=== PATIENT | female | born 2000 | race Caucasian/White ===

== ENCOUNTER 2022-08-28 16:55 | Emergency (ER) | payer OTHER, SELFPAY ==
[2022-08-28 17:11] VITALS: BP 102/72; PULSE 89; RESP 18; TEMP 36.9; O2SAT 99; BMI 44.7
[2022-08-28 17:52] LABS: Internal Control Within Normal Limits; Strep A Antigen Screen Negative
--- NOTE | 2022-08-28 17:59 | ED.GENADUL1 ---
HPI - General Adult General Chief complaint: Dental/Oral Stated complaint: SORE THROAT Time Seen by Provider: 08/28/22 17:02 Source: patient Mode of arrival: walk-in Limitations: no limitations History of Present Illness HPI narrative: two days ago she developed sore throat and noticed white spots. Painful to eat and drink. No neck pain or swollen lymph nodes. No ear pain, nasal congestion or cough. Uncertain about potential exposures. Related Data Home Medications Medication Instructions Recorded Confirmed metformin 500 mg tablet,extended 500 mg PO DAILY 08/28/22 08/28/22 release 24 hr sertraline 100 mg tablet 100 mg PO Q24H 08/28/22 08/28/22 Previous Rx's Medication Instructions Recorded amoxicillin 500 mg capsule 500 mg PO TID #20 caps 08/28/22 Allergies Allergy/AdvReac Type Severity Reaction Status Date / Time theophylline Allergy Rash Verified 08/28/22 17:16 [facility] Medical History (Updated 08/28/22 @ 17:59 by Cody Swain) Social History Smoking status: Never smoker Exam Narrative Exam Narrative: Nurses notes and vital signs reviewed and patient is not hypoxic. afebrile General: Well-appearing and in no apparent distress. Skin: Warm, dry, no pallor noted. No rash. Head: Normocephalic, atraumatic. Neck: Supple, non-tender. no cervical lymphadenopathy Eye: Pupils are equal, round and EOMI. No scleral icterus. Ears, Nose, Mouth, and Throat: TM are clear, no nasal mucosal hypertrophy. Oral mucosa is moist, moderate posterior oropharynx erythema and swelling with exudate, uvula is mid-line Cardiovascular: Regular Rate and Rhythm without murmur, gallop or rub. Respiratory: No accessory muscle use or respiratory distress. Lungs are clear to auscultation, no wheezing, rales or rhonchi Musculoskeletal: normal ROM Neurological: A&O x4. No cranial nerve dysfunction observed. No truncal ataxia. Moves all extremities. Sensation intact. Psychiatric: Cooperative and interactive. Normal mood and affect. Constitutional Vital Signs - 24 hr 08/28/22 17:11 08/28/22 17:39 Temperature 98.4 F Pulse Rate [Monitor] 89 Respiratory Rate 18 Blood Pressure [Left Arm] 102/72 Pulse Oximetry 99 Oxygen Delivery Method Room Air Room Air Course Vital Signs Vital signs: Vital Signs Temperature 98.4 F 08/28/22 17:11 Pulse Rate 89 08/28/22 17:11 Respiratory Rate 18 08/28/22 17:11 Blood Pressure 102/72 08/28/22 17:11 Pulse Oximetry 99 08/28/22 17:11 Oxygen Delivery Method Room Air 08/28/22 17:11 Temperature 98.4 F 08/28/22 17:11 Pulse Rate 89 08/28/22 17:11 Respiratory Rate 18 08/28/22 17:11 Blood Pressure 102/72 08/28/22 17:11 Pulse Oximetry 99 08/28/22 17:11 Oxygen Delivery Method Room Air 08/28/22 17:39 Medical Decision Making MDM Narrative Medical decision making narrative: patient presents with two days of sore throat and white exudate on her tonsils. Strep test is negative. I will prescribe antibiotics to treat her tonsillitis. She can take [id number] medications such as Tylenol and Motrin for the pain as well as gargling with salt water. 1st dose of antibiotic was given in the emergency Department before discharge. Lab Data Lab results reviewed: Yes I reviewed the patient's lab results Labs: Lab Results 08/28/22 Range/Units 17:20 Streptococcus Screen Negative Discharge Plan Discharge Chief Complaint: Dental/Oral Clinical Impression: Pharyngitis Patient Disposition: Home, Self-Care Time of Disposition Decision: 17:56 Prescriptions / Home Meds: New amoxicillin 500 mg capsule 500 mg PO TID Qty: 20 0RF No Action metformin 500 mg tablet extended release 24 hr 500 mg PO DAILY sertraline 100 mg tablet 100 mg PO Q24H Rx Instructions: at HS Instructions: Pharyngitis (ED) Stand Alone Forms: Portal Instructions Referrals: Physician,Non-Staff, MD [Primary Care Provider] - 1 week
[2022-08-28] MEDS: AMOXICILLIN 500 MG CAPSULE PO (18:04)
== END 2022-08-28 18:07 | disposition home or self-care (01) ==
PROVIDERS: Emergency Provider Emergency Medicine
DX: J02.9 Acute pharyngitis, unspecified (principal); Z79.84 Long term (current) use of oral hypoglycemic drugs; Z79.899 Other long term (current) drug therapy
CPT/HCPCS: 87070; 87880; 99283

== ENCOUNTER 2024-02-11 06:01 | Emergency (ER) | payer OTHER, SELFPAY ==
[2024-02-11 06:06] VITALS: BP 130/86; PULSE 92; TEMP 37; O2SAT 99; BMI 38.3
[2024-02-11 06:18] LABS: Bilirubin Urine NEGATIVE (NEGATIVE); Blood Urine NEGATIVE (NEGATIVE); Clarity Urine CLEAR (CLEAR); Color Urine YELLOW (YELLOW); Glucose Urine UA NEGATIVE (NEGATIVE); Ketones Urine NEGATIVE (NEGATIVE); Leukocyte Esterase Urine LARGE (NEGATIVE); Nitrite Urine NEGATIVE (NEGATIVE); Protein Urine TRACE mg/dL (NEG/TRACE); Urobilinogen Urine 0.2 EU/dL (0.2-1.0); pH Urine 6.5 (5.0-9.0)
[2024-02-11 06:20] LABS: HCG Qualitative Urine* POSITIVE (NEGATIVE); Internal Control Within Normal Limits
[2024-02-11 06:24] LABS: Urine Microscopic Indicated YES
[2024-02-11 06:27] LABS: Bacteria Urine LARGE #/HPF (NONE SEEN); Cast Seen? NONE SEEN #/LPF (NONE SEEN); Crystals Seen? None Seen #/HPF (None Seen); Mucus Urine NONE SEEN (NONE SEEN); RBC Urine 0-2 #/HPF (0-2); Squamous Epithelial Cell Urine MANY #/LPF (NONE/RARE); WBC Urine 20-50 #/HPF (NONE SEEN)
[2024-02-11 06:28] LABS: Urine Culture Indicated YES
--- NOTE | 2024-02-11 06:34 | ED.GENADUL1 ---
HPI HPI - General Adult General Chief complaint: Recheck/Abnormal Lab/Rx Stated complaint: preg test Time Seen by Provider: 02/11/24 06:06 Source: patient Mode of arrival: walk-in Limitations: no limitations History of Present Illness HPI narrative: The patient presented to us because she wanted know if she is or not she is denying any other acute complaint Related Data Home Medications ?Medication ?Instructions ?Recorded ?Confirmed metformin 500 mg tablet,extended 500 mg PO DAILY 08/28/22 02/11/24 release 24 hr sertraline 100 mg tablet 100 mg PO Q24H 08/28/22 02/11/24 Previous Rx's ?Medication ?Instructions ?Recorded amoxicillin 875 mg-potassium 1 tab PO Q12H #10 tabs 02/11/24 clavulanate 125 mg tablet Allergies Allergy/AdvReac Type Severity Reaction Status Date / Time theophylline Allergy Rash Verified 02/11/24 06:06 Opioid HPI Opioid Management Most Recent Opioid Data: No Data to Display Review of Systems ROS Status of ROS 10 or more systems reviewed and unremarkable except as noted in history and below [facility] Medical History (Updated 02/11/24 @ 06:33 by Christina Lombardo MD) PCOS (polycystic ovarian syndrome) ?E28.2 - Polycystic ovarian syndrome (ICD-10) Depression ?F32.A - Depression, unspecified (ICD-10) Social History Smoking status: Never smoker Little interest or pleasure in doing things: not at all Feeling down, depressed, or hopeless: not at all Exam Narrative Exam Narrative: Nurses notes and vital signs reviewed and patient is not hypoxic. General: Well-appearing and in no apparent distress. Skin: Warm, dry, no pallor noted. No rash. Head: Normocephalic, atraumatic. Neck: Supple, non-tender. Eye: Pupils are equal, round and EOMI. No scleral icterus. Ears, Nose, Mouth, and Throat: TM are clear, no nasal mucosal hypertrophy. Oral mucosa is moist, no posterior oropharynx erythema, uvula is mid-line Cardiovascular: Regular Rate and Rhythm without murmur, gallop or rub. Respiratory: No accessory muscle use or respiratory distress. Lungs are clear to auscultation, no wheezing, rales or rhonchi Chest Wall: no tenderness Back: No midline thoracic or lumbar vertebral tenderness. No CVA tenderness Musculoskeletal: normal ROM, no calf or popliteal tenderness, no lower extremity edema/swelling GI: Abdomen is soft, non-distended. Normal bowel sounds. No masses appreciated. No tenderness to palpation. No rebound, guarding, or rigidity noted. Neurological: A&O x4. No cranial nerve dysfunction observed. No truncal ataxia. Moves all extremities. Sensation intact. Psychiatric: Cooperative and interactive. Normal mood and affect. Constitutional Vital Signs, click to edit/add: Last Vital Signs Temp 98.6 F 02/11/24 06:06 Pulse 92 H 02/11/24 06:06 Resp 20 02/11/24 06:06 BP 130/86 02/11/24 06:06 Pulse Ox 99 02/11/24 06:06 O2 Del Method Room Air 02/11/24 06:06 Course Vital Signs Vital signs: Vital Signs Temperature 98.6 F 02/11/24 06:06 Pulse Rate 92 H 02/11/24 06:06 Respiratory Rate 20 02/11/24 06:06 Blood Pressure 130/86 02/11/24 06:06 Pulse Oximetry 99 02/11/24 06:06 Oxygen Delivery Method Room Air 02/11/24 06:06 Temperature 98.6 F 02/11/24 06:06 Pulse Rate 92 H 02/11/24 06:06 Respiratory Rate 20 02/11/24 06:06 Blood Pressure 130/86 02/11/24 06:06 Pulse Oximetry 99 02/11/24 06:06 Oxygen Delivery Method Room Air 02/11/24 06:06 Medical Decision Making MDM Narrative Medical decision making narrative: The patient test is positive and she does have bacteriuria as well in her urine she will be treated with Augmentin The patient otherwise will just follow-up with her OB doctor The patient is to follow up with primary care physician in next 2-3 days or to return to the emergency department should any of the signs or symptoms worsen or new symptoms develop. The patient agrees with the following Diagnosis and Treatment plan and the patient will be discharged home. Lab Data Labs: Lab Results 02/11/24 Range/Units 06:15 Urine Color Yellow (YELLOW) Urine Clarity Clear (CLEAR) Urine pH 6.5 (5.0-9.0) Ur Specific [place] 1.020 (1.005-1.025) Urine Protein Trace (NEG/TRACE) mg/dL Urine Glucose (UA) Negative (NEGATIVE) mg/dL Urine Ketones Negative (NEGATIVE) mg/dL Urine Occult Blood Negative (NEGATIVE) Urine Nitrite Negative (NEGATIVE) Urine Bilirubin Negative (NEGATIVE) Urine Urobilinogen 0.2 (0.2-1.0) EU/dL Ur Leukocyte Esterase Large A (NEGATIVE) Urine RBC 0-2 (0-2) #/HPF Urine WBC 20-50 A (NONE SEEN) #/HPF Ur Squamous Epith Cells Many A (NONE/RARE) #/LPF Urine Crystals None seen (None Seen) #/HPF Urine Bacteria Large A (NONE SEEN) #/HPF Urine Casts None seen (NONE SEEN) #/LPF Urine Mucus None seen (NONE SEEN) Ur Culture Indicated? Yes Urine HCG, Qual Positive A (NEGATIVE) Discharge Plan Discharge Chief Complaint: Recheck/Abnormal Lab/Rx Clinical Impression: , Asymptomatic bacteriuria during Patient Disposition: Home, Self-Care Time of Disposition Decision: 06:33 Condition: Good Prescriptions / Home Meds: New amoxicillin-pot clavulanate 875-125 mg tablet 1 tab PO Q12H Qty: 10 0RF No Action metformin 500 mg tablet extended release 24 hr 500 mg PO DAILY sertraline 100 mg tablet 100 mg PO Q24H Rx Instructions: at HS Print Language: Kenyan Instructions: (ED) Referrals: Dhruv Recinos DO [Physician] - 1 week Physician,Non-Staff, [Primary Care Provider] - 1 week
== END 2024-02-11 06:40 | disposition home or self-care (01) ==
PROVIDERS: Emergency Provider Emergency Medicine
DX: O99.891 Other specified diseases and conditions complicating pregnancy (principal); R82.71 Bacteriuria; Z3A.00 Weeks of gestation of pregnancy not specified
CPT/HCPCS: 81001; 84703; 87086; 99283

== ENCOUNTER 2024-02-23 14:53 | Emergency (ER) | payer OTHER, SELFPAY ==
[2024-02-23 14:59] VITALS: BP 118/72; PULSE 79; TEMP 36.8; O2SAT 99; BMI 42.3
--- OUTSIDE RECORDS SUMMARY | 2024-02-23 15:08 | XMS_ITS | CCD ---
Author Organization [facility] Care Team Providers Care Composing Machine Operator Name Role Phone Edith Ford Primary Care Provider Edith Ford Primary Care Physician Maggie Alex Unavailable Unavailable Neal Garcia Consulting Unavailable Logan PROVIDER, Logan Quiroga Referring Unavailable Logan PROVIDER, Logan Quiroga Attending Unavailable Logan PROVIDER, Logan Quiroga Admitting Unavailable Neal Garcia Consulting Unavailable Neal Garcia Consulting Unavailable HARPAL, DR KATHLEEN Primary Care Unavailable FLORA, DR MCKENZIE Admitting Unavailable FLORA, DR MCKENZIE Attending Unavailable PAY ., DR ARAUZ Consulting Unavailable FLORA, DR MCKENZIE Consulting Unavailable MISC, DR KATHLEEN Primary Care Unavailable EILEEN ., JOURDAN Admitting Unavailable EILEEN ., JOURDAN Attending Unavailable JOHNNY WOODARD Consulting Unavailable LOGAN, DR TEJADA Consulting Unavailable HARPAL, DR KATHLEEN Primary Care Unavailable EILEEN ., JOURDAN Admitting Unavailable EILEEN ., JOURDAN Attending Unavailable EILEEN ., JOURDAN Consulting Unavailable HARPAL, DR KATHLEEN Primary Care Unavailable MAHAMED Ibanez, DR MALLORY Consulting Unavailable MAHAMED ., DR MALLORY Admitting Unavailable MAHAMED ., DR MALLORY Attending Unavailable LOGAN, DR TEJADA Consulting Unavailable HARPAL, DR KATHLEEN Primary Care Unavailable MAHAMED Ibanez, DR MALLORY Admitting Unavailable MAHAMED Ibanez, DR MALLORY Attending Unavailable MAHAMED Ibanez, DR MALLORY Consulting Unavailable HARPAL, DR KATHLEEN Primary Care Unavailable KHARI, DR JESUS Cortez Admitting Unavailable KHARI, DR JESUS Cortez Attending Unavailable KHARI, DR JESUS Cortez Consulting Unavailable LOGAN, DR TEJADA Consulting Unavailable HARPAL, DR KATHLEEN Primary Care Unavailable KHARI, DR JESUS Cortez Admitting Unavailable KHARI, DR JESUS Cortez Attending Unavailable KHARI, DR JESUS Cortez Consulting Unavailable HUY QUIÑONES Consulting Unavailable LUIS DONATO Consulting Unavailable WALKER BLUM Attending Unavailable WALKER BLUM Referring Unavailable Allergies Allergy Classification Reported Allergen(s) Allergy Type Date of Onset Reaction(s) Facility Theophylline (1 source) Theophylline Drug Allergy 1 [facility] (2 sources) SUMAtriptan; Translations: [sumatriptan] Drug Allergy Pharyngeal swelling (finding) [facility] (2 sources) Theophylline; Translations: [theophylline] Drug Allergy rash [facility] (1 source) Theophylline Drug Allergy 9 [facility] Repository Medications Current Medications Medication Drug Class(es) Dates Sig (Normalized) Sig (Original) cyclobenzaprine hydrochloride 10 mg oral tablet (1 source) Muscle Relaxant Start: 06-29-2020 take 10 mg by mouth three times daily Cyclobenzaprine Active 10 MG PO Three times daily June 29, 2020 9:12am diclofenac sodium 75 mg delayed release oral tablet (1 source) Nonsteroidal Anti-inflammatory Drug Start: 06-29-2020 take 75 mg by mouth twice daily Diclofenac Sodium Active 75 MG PO Twice daily June 29, 2020 9:12am lidocaine 0.05 mg/mg medicated patch (1 source) Antiarrhythmic, Amide Local Anesthetic Start: 06-29-2020 apply 1 dose topically once daily Lidocaine Active 1 PATCH TOPICAL Daily June 29, 2020 9:12am leave on most painful area for up to 12 hrs naproxen 500 mg oral tablet (1 source) Nonsteroidal Anti-inflammatory Drug Start: 12-13-2018 take 1 tablet by mouth twice daily at mealtime Naprosyn 500 mg Tab 500 mg = 1 tab(s), Oral, BID, with food, # 60 tab(s), Refills(s) 0 Start Date: 12/13/18 Status: Ordered Bactrim (1 source) Dihydrofolate Reductase Inhibitor Antibacterial, Sulfonamide Antimicrobial Start: 12-13-2018 take 80 mg by mouth every twelve hours Bactrim See Instructions, Refill(s) 0, 80 mg Oral q12hr Start Date: 12/13/18 Status: Ordered Problems Active Problems Problem Classification Problem Date Documented Date Episodic/Chronic E Codes: Natural/environment (1 source) Other and unspecified overexertion or strenuous movements or postures, initial encounter; Translations: [OTH AND UNS OVREXRT/STRN MVMT/POS INT] Onset: 03-15-2022 Episodic Esophageal disorders (1 source) Gastroesophageal reflux disease 12-22-2015 Chronic Headache; including migraine (4 sources) Headache; including migraine; Translations: [HEADACHE UNSPECIFIED] Onset: 11-29-2021 Mood disorders (1 source) Bipolar disorder 12-25-2018 Chronic Nonspecific chest pain (5 sources) Other chest pain; Translations: [Chest pain, unspecified] Onset: 01-20-2022 Episodic Other and ill-defined heart disease (1 source) Cardiomegaly; Translations: [CARDIOMEGALY] Onset: 01-24-2022 Chronic Other ear and sense organ disorders (3 sources) Otalgia, right ear; Translations: [OTALGIA RIGHT EAR] Onset: 05-08-2022 Episodic Other endocrine disorders (1 source) Polycystic ovarian syndrome; Translations: [POLYCYSTIC OVARIAN SYNDROME] Onset: 12-22-2021 Chronic Other female genital disorders (3 sources) Abnormal uterine and vaginal bleeding, unspecified; Translations: [ABNORMAL UTERINE VAGINAL BLEED UNS] Onset: 12-21-2021 Chronic Other female genital disorders (1 source) Other specified abnormal uterine and vaginal bleeding; Translations: [OTH SPEC ABNORMAL UTERINE VAG BLEED] Onset: 12-22-2021 Chronic Other nutritional; endocrine; and metabolic disorders (1 source) Obesity, unspecified; Translations: [OBESITY UNSPECIFIED] Onset: 05-09-2022 Chronic Other nutritional; endocrine; and metabolic disorders (1 source) Body mass index (BMI) 40.0-44.9, adult; Translations: [BODY MASS INDEX BMI 40.0-44.9 ADULT] Onset: 05-09-2022 Chronic Other nutritional; endocrine; and metabolic disorders (1 source) Body mass index (BMI) 45.0-49.9, adult; Translations: [BODY MASS INDEX BMI 45.0-49.9 ADULT] Onset: 03-15-2022 Chronic Other upper respiratory disease (1 source) Nasal congestion; Translations: [NASAL CONGESTION] Onset: 02-25-2022 Episodic Other upper respiratory infections (1 source) Acute upper respiratory infection, unspecified; Translations: [ACUTE UP RESPIRATORY INFECTION UNS] Onset: 02-25-2022 Episodic Otitis media and related conditions (1 source) Otitis media, unspecified, right ear; Translations: [OTITIS MEDIA UNSPECIFIED RIGHT EAR] Onset: 05-09-2022 Episodic Spondylosis; intervertebral disc disorders; other back problems (4 sources) Pain in thoracic spine; Translations: [Dorsalgia, unspecified] Onset: 03-13-2022 Episodic Sprains and strains (2 sources) Strain of thoracic region; Translations: [Strain of muscle and tendon of back wall of thorax, initial encounter] Onset: 03-15-2022 Episodic Unclassified (1 source) None (qualifier value) 04-08-2012 Unclassified (2 sources) COUGH, UNSPECIFIED; Translations: [COUGH, UNSPECIFIED] Onset: 02-25-2022 Unclassified (1 source) CONTACT W/AND (SUSP) EXPOS COVID-19; Translations: [CONTACT W/AND (SUSP) EXPOS COVID-19] Onset: 02-25-2022 Past or Other Problems Problem Classification Problem Date Documented Da te Episodic/Chronic Conditions associated with dizziness or vertigo (1 source) Dizziness and giddiness; Translations: [DIZZINESS AND GIDDINESS] Onset: 12-01-2021 Episodic Nausea and vomiting (5 sources) Nausea; Translations: [Nausea with vomiting, unspecified] Onset: 08-21-2021 Episodic Other aftercare (1 source) Other prison (current) drug therapy; Translations: [OTH [facility] CURRENT DRUG THERAPY] Onset: 01-24-2022 Episodic Other aftercare (1 source) computer terminal operator (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) use of oral hypoglycemic drugs; Translations: [MAINTENANCE TECHNICIAN 2ND SHIFT USE ORAL HYPOGLYCEMIC DX] Onset: 12-22-2021 Episodic Poisoning by nonmedicinal substances (1 source) Toxic effect of carbon monoxide from other source, accidental (unintentional), initial encounter; Translations: [TOXIC EFF CO OTH SOURC ACC INIT ENC] Onset: 12-01-2021 Episodic Unclassified (1 source) COUGH, UNSPECIFIED; Translations: [COUGH, UNSPECIFIED] Onset: 02-23-2022 Urinary tract infections (1 source) Urinary tract infection, site not specified; Translations: [UTI SITE NOT SPECIFIED] Onset: 08-23-2021 Episodic Results Test Name Value Interpretation Reference Range Facil ity Referrals Officeon 3 Referrals Office [id number]#1.00CD:127 Normal [facility] CULTURE URINEon 03-13-2022 CULTURE URINE Culture Observations: HEAVY GROWTH OF MIXED GENITAL TING. NO POTENTIAL PATHOGENS SEEN. Normal [facility] Comment on above: Performed By: #### C MP #### [facility] [address] [address] [address] Paz Burk ER URINE PROFILEon 3 Bilirubin Ql (U) Negative Normal NEGATIVE [facility] Comment on above: Performed By: #### P REGU UMICRO, ERUR #### [facility] [address] [address] [address] Paz Burk Clarity (U) CLEAR Normal CLEAR [facility] Comment on above: Performed By: #### P REGU UMICRO, ERUR #### [facility] [address] [address] [address] Paz Burk Color (U) LT. YELLOW Normal YELLOW [facility] Comment on above: Performed By: #### P REGU UMICRO, ERUR #### [facility] [address] [address] [address] Paz POST A micrscopic examination will be performed if indicated. Normal [facility] Comment on above: Performed By: #### P REGU UMICRO, ERUR #### [facility] [address] [address] [address] Paz Burk Glucose Ql (U) Negative Normal NEGATIVE [facility] Comment on above: Performed By: #### P REGU UMICRO, ERUR #### [facility] [address] [address] [address] Paz Burk Hemoglobin Ql (U) Negative Normal NEGATIVE [facility] Comment on above: Performed By: #### P REGU UMICRO, ERUR #### [facility] [address] [address] [address] Paz Burk Ketones Ql (U) Negative Normal NEGATIVE [facility] Comment on above: Performed By: #### P REGU UMICRO, ERUR #### [facility] [address] [place] [address] Dr. Paz Burk LEUKOCYTES MODERATE Abnormal NEGATIVE [facility] Comment on above: Performed By: #### PEGGY STYLES ERUR #### [facility] [address] [address] [address] Paz Burk Nitrite Ql (U) Negative Normal NEGATIVE [facility] Comment on above: Performed By: #### PEGGY STYLES, CHANDRAKANTR #### [facility] [address] [address] [address] Paz Burk pH (U) 6.0 [pH] Normal 5-9 [facility] Comment on above: Performed By: #### PEGGY STYLES ERUR #### [facility] [address] [place] [address] Dr. Paz Burk SPEC GRAVITY 1.025 Normal 1.005-<=1.025 [facility] Comment on above: Performed By: #### PEGGY STYLES ERUR #### [facility] [address] [place] [address] Dr. Paz Burk UA PROTEIN Negative Normal NEGATIVE/ TRACE [facility] Comment on above: Performed By: #### PEGGY STYLES ERUR #### [facility] [address] [place] [address] Dr. Paz Burk UR MICRO IND INDICATED Normal [facility] Comment on above: Performed By: #### PEGGY STYLES ERUR #### [facility] [address] [address] [address] Paz Burk Urobilinogen Qn (U) 0.2 {Ara'U}/dL Normal 0.2 - 1. 0 [facility] Comment on above: Performed By: #### PEGGY STYLES ERUR #### [facility] [address] [place] [address] Dr. Paz Burk URon 03-13-2022 , QUAL Negative Normal NEGATIVE [facility] Comment on above: Performed By: #### PEGGY STYLES, ERUR #### [facility] [address] [address] [address] Paz Burk URINE MICROSCOPIC ONLYon BACTERIA MODERATE Abnormal NONE SEEN [facility] Comment on above: Performed By: #### P VERONICA HERNANDEZICRO, ERUR #### [facility] [address] [address] [address] Paz Burk Bacteria identified Cx Nom (U) INDICATED Normal [facility] Comment on above: Performed By: #### P VERONICA HERNANDEZICRO, ERUR #### [facility] [address] [address] [address] Paz Burk CAST NONE SEEN Normal NONE SEEN [facility] Comment on above: Performed By: #### P BREANA HERNANDEZRO, ERUR #### [facility] [address] [place] [address] Dr. Paz Burk Crystals LM Nom (Urine sed) NONE SEEN Normal NONE SEEN [facility] Comment on above: Performed By: #### P VERONICA HERNANDEZICRO, ERUR #### [facility] [address] [address] [address] Paz Burk Epithelial cells LM Ql (Urine sed) MODERATE Abnormal NONE SEEN /RARE [facility] Comment on above: Performed By: #### P BREANA HERNANDEZRO, ERUR #### [facility] [address] [address] [address] Paz Burk MUCOUS TRACE Abnormal NONE SEEN [facility] Comment on above: Performed By: #### P BRAENA HERNANDEZRO, ERUR #### [facility] [address] [address] [address] Paz Burk RBC 0-2 Normal 0-2 [facility] Comment on above: Performed By: #### P BREANA HERNANDEZRO, ERUR #### [facility] [address] [address] [address] Paz Burk WBC 50-75 Abnormal NONE SEEN [facility] Comment on above: Performed By: #### P PEGGY HERNANDEZ, ERUR #### [facility] [address] [address] [address] Paz Burk Coding Summary.on 03-04-2022 Coding Summary. CD:[id number] Gh0bWw+PGhlYWQ+PE1FV PGtD05mnBCwpW1GL4oIN E9DLSTMDVGQPI9MDZ5ek GZ0SMjnA1DkqpTx AunhhPPkTR85IZj7ZQK9 aWxpMKnjcC5pmZZzF7b4 PeWuNY08tO87JAbaJHUw DlA2WrQoszbpwOYv F2jaTaBocIHrZww+PHRh YmxlIHdpZHRoPScxMDAl SlZrrVlxZP3bBs5aTOZn LWNvbGxhcHNlOiBj k5egQHLrFMslXA7nuMda F5NtyPB8OQSjb6u1Ut54 dHI+HPXuALC5wGsrPCfv p783YyEzk5upRZS5 hFJiSBspYSI7L10yy9B5 WSFvMLKjCCV8kHH8uZ9l aEpppeuvF1EsnNJmJqZ0 MRM9xNZxzO0vkYph ovlkjD8kTvd+P46LMC5X ZIZMKY9OTrx1A4DnTyzq dHI+CX91ZCMqOE71vRTn eTRtu9pspFt1RjAo JNUxKJZ5wKvmXFrcb7Ho HWCoS38ywDUkf6G7QINa pJulgMVeZoVxlXH4jW7b FOpezhlqv4qjorzh Vssoj4zxfu05gF78F39d OAemEBXtJJA8UENuYNLd iJbzni6msQ1aYg7+IDxj g6cfq7zyjYi7FiEf AFWoivXltRbbEQU5p9Zr Vw32Z1NugPwih9HeXgd2 zk27rNYue1G6rIH8DKco ZXPrwO0kIBouNbN0 BEUcVcRluD78uQWmLAzy Wk4flHqihRisNQ1eCTHh fdllMYHqwJ9vJRGtpJTp iZjoGM8jAQRmbkfe j118ChNqLMP8TTAxsALb Z2TdeC6uTkNbVNKmDFQr U3KbnYWnVMmmT180EJqv BjR2PFIdxkHbF1Wl NUQfrAdqZrB8k3L8Nd8R e3QddelnTZG1UHoiABOl TfD4ZzJgHeG9Y7WvQvg5 BMWtpUdrLJ8vV8Ns QLVwlnytpjelxNI3YECy CISbfZ46fNNhIWvjDm1d o5I2g859FNTrFKOwlK33 Kf2dqAupIOIrvOAQ cX9iicjmg1ysuralBlPn GNSgQRy6JDy5YXWbrLty SvYjQNB8CgA2KIT9sTZk lX2poDeoulltzZ0j Oyc+V81ynM2dYFN3GYM2 owkkYWIlcoPfXK76KZ95 Q2FlYgwiiZGoxLC+PGRp sqZkcPwnMN9iXgRj l2crd0IwTWpuK2OfTIXv YJjnUyr5TAGeLTV9cLB3 sD4cIDLnPBmvm8H5hYS8 G4SpxrVffn1hp5oh GGUdYKquE49kmWGnq5Z8 CPYzrAW6WLRdeRnxAsRh fB63Igf+JNKekCuum6Ic Elsmd7fxx2wywKl0 IjMwJSIgdmFsaWduPSJ0 r2AbHs10X66rOSfbXQBy KCKqVNFzSIQbzAumup6x eO7eJz1+PGNvbCB3 mLU0eS6dDKFcBnB2WBrv W771AtXitFVoEqfcb1xy a5grzBq5YcUnXCRyjuSk nXxwWYI7p7QeKp94 I83oHZotJRBdOAGhIAWl TPAuuEcbkz8ieQ6oMi1+ BN3gz1usvj36cM38iGP+ KCJwJNV2wYqjFNvu XBHcuJ5gWQvqIwU6VFJw HiLknF64wKYrOOblKd5w vPjmlBzmTR8lKHGfnxsc l639SaZzv4aqCTZb gPGgVLebZXH8E89vt5P3 GMAyQLTpEUD4hOZ7yP2v bGlnbjogbGVmdDsgdmVy rCbbYDekRAwcK065 IHRvcDsnPlBhdGllbnQg MuQcLPk7O3KkVfy2PHAu oNveBY2seAJkWUfhUj9j bNaibKmgEG5tZRIx iaggr478IcThg1rvNMYc gNVjFVwrADA8U36ug4O9 UTMxCAZyCKA9qXG3oW4i bGlnbjogbGVmdDsg keQxbLepNErxHIwpT765 IHRvcDsnPkJpcnRoIERh bIJ3OZ13KL79uSOof7R9 bVC3W9CzHMBbwtgy rkdduUT9SHWfEYJqwJ85 Gw0wzZohJj8kLBSjWZV8 PGNtxZRrZ6FmkF1fNuWc WKKpBRNdC5IbxSNu YQgjM913EEotNnL3CIZy dfTsQ8EaIVEgoOjkHwK5 b2V1Nc5AV9V1FH30MQ81 bRNgg6V6eKC0B1Qh WWCycvgfbfffsKT7KKUj SVMurG77Az9qdPfgFs6j BCYkIHV7SLPlzPSmF9Yi oM8oRuApZJArPBTj U7MrsDLiRBqmY366ZHuy MtF8EWNbfaAuH4SjHQSh nOweLsA9c3U9Yf6YCBn4 SJ58BK18yDNxv6A2 mER1V8BvKMWrsbxaxful yWI9URKaAQFifN82Ni2x wGbaNw2xGOHkGJS4WEIc uWCdB4JyrV6pCmDd IVCpIWWfE5XnxTLlAPez Z877XSfdUiF6GHChcuJi K0XtUTRplMfrDcU7r2B1 Ta8VTZSoPV69LPA5 fVP2DQ10QD12Y7LaHdbv dGFibGU+PHRhYmxlIHdp ZHRoPScxMDAlJyBzdHls LH3mNv3eAZQmHMTw zIieeQViQcDtf8cfUUTg CJkjZG0ptBhxX1YtlRE1 RIUug0n3Hf91D88uO7Wq dXA+CXJdlIU8tFT3 bA5eDwNxHrD3NZbaV295 QuLezXEaJsxxx9tpp6ny vZi4JtG2JQUjqaCbuSee TSI5v2DtQy67S17n IHdpZHRoPSIxNSUiIHZh lHgcfg0ffZ1nAm5+PGNv tLG7ySC4jP1gCoNpRjE2 KSrbB724BaAurHYm Vnvxb7wxr0oblKo1XiHq AXZxmkFozSfvSMS1x6Se Or39B1IxcGzvr0EvQvg7 pk28zREzj3T5jMG1 Q1HvGKDgoziobGEcyIit WB5gYCZewpolUREenN3k MIQwI1m2JoEcLdW2CXpy M7NtjvD6THXagKAm KCnrSFG0Y67qb2U4WVTe IKEjYUY1oEQ5wW4ntPef bjogbGVmdDsgdmVydGlj TPrvPYwqS339ETEc xBwwACBvhB6eKUAezVQt aWbeWJ4gMMHsbqylTeYC IN1kMMfDHz6EArHiYmxw dGQ+GIDwOZJ7vKza TDnlCVFqkZ8dYQEjK3i1 FsGiJyD3ERxgB8KmQNEj dppeNp73gR5xZyKaTqS0 ELofU9RxxaD7PJAc cYEtLGxpHWE3H00rk4N1 JAXlIQRzPCP4dSY1nJ5t bGlnbjogbGVmdDsgdmVy rLnkVMfzYQahJ679 VDXvuGqiCcC4KdR7IaT4 FHw1X9RmYab1GDWykYkr GE6pdMAxJRdzSd3zlBud vEiyHH3cTTLiwmgi RGXiwN5wUBQwwEYmdTmc JE5iEZKvmgzsi616FyMg MVA5GGIhdLUxE5NncC7q TmEkVQAhKIPdI7Um dSQrRWqiX727UFgtPoH6 MTOegkXkM3AjYWQxpKdv BtM9h8U3Gq0zXmPAMIZr czwvdGQ+PHRkIHN0 oJrgZUciHYVkbO2oPPAo X1b6KpJzGdB0YPusJ7Hv DRXzbeseTg24oT4eHzXu JyG7CKagH6WgabQ2 PAJlhHDbECmiYPA2U87w k4U1TJOzFDTePTG9hLW0 pT2eyGgkahtuvBXhpBit dmVydGljYWwtYWxp E207NLGxaKfwGnBxtIQo ZTwvdGQ+OBBxAPQ4rRyk SPfrVKSpqG0lAUJjN5o7 EbChEwN3OMgrU3On VNEgatevQa65yW9aOrSj CnJ4ZVtoR2DhofA4CHUx dDCjZSyxMGG1R05fq6S5 IYShCDBrBPA0fDQ1 xC6qxSfzgtpjbGEelPbm ufBnsPcuAHorDOtqS165 PQIdxHhwZc61xNFcfLmt jrX7I3IePoebeGJ+ ET22WFOuEE44yFHgyQVf w8ptxVp8CdAnGORpREL0 dUwfNVcmy3EuRLYqH99a mQVqi4V6WVGwpBwy qUSgGzLqrBW1jA7vFWuk tussm0jusseiReizf5ha wh70gO06R93gFGtjNPAi PSIzMCUiIHZhbGln cw1veB1oSf2+PGNvbCB3 lBG7iK3dErBiIcH6YBqb L191SlYfqTFvKzpci0dn q7bwlRm8NwXwZBJa akFfkSixFOH3g6OeOg91 U18kVZmlJTSdPVPgBRSn TJWpuTjzjt0ghM4nQm3+ RW7pk7megn34eE66 dHI+ERJeHII2zCbrGKpl ZQHeiX2bGGxkLeD8AHPc CpQsvS20rDMjMQodDu1k cFtyaWvlRR8oYSRo qvcsk768EaMco5dnQHUx pGKiLUhkDAQ7Q56xa9M1 MSDlSFVmAQZ6kMR6lA5a bGlnbjogbGVmdDsg ssPxvJcpRKgtAPgaR170 BGMdcAzyXyGfyQAoQ2li ghTNLT2oNjkliPC+PHRk GPX6mFxfWGtyUQSi cQ4gQBPlT4m6JhIvByK6 AGesU4OasgV4ATOceXKx HOZqyNGNyL8bchwjh5pp cjogIzAwMDAwMDt0 NMb2GFZmwVnqLoGxOWC7 YeY0VQL5pXOpbJ0fdDsa yjbaiQ8kZsn+RklOOjwv dGQ+XRZcCWV5oSso TSlhGSUbeJ5xNQNcS4f8 MaTfCoU4BQzqW0RnguO6 RLHwlVRlYOJlfSUJiS8p wrztp4gdsjmkSqTu WABjXKt6MBh4KFQteVly OfDbOHT0CkW7ZEJ8zOMy rQ2bkHvjehixdJ2uNro+ TVJOOjwvdGQ+PHRk CUS4fNegYDipWCAacN6n LFIlY8j6RbHyWxR3RCgk H1TscjU3JXXbnFPzSMCj cHJHzN3juuzoz5eo wkzdWmBbKUWuDOz0EHt5 GDTgxGlnSxSeJFD7HuN7 VHL8sCYhbU0ybPcuwmfo yW7nFrl+FWY4KUB7 DU36PW38W3FuGtrteRKu bGU+PHRhYmxlIHdpZHRo ILbyOUUsSyOrzCatEZ0x Kt0xEWEoPUEbyKtv cHNl (more content not included)... Normal [facility] Consent for Treatmenton Consent for Treatment [id number] #1.00CD:127 Normal [facility] Covid-19 PCR ([facility])on 01-28 SARS-CoV-2 (COVID-19) RNA IGNACIO+probe Ql (Unsp spec) Not detected Normal NOT DETECTED [facility] Comment on above: Result Comment: This test is not yet approved or cleared by the [place] FDA. When there are no FDA-approved or cleared tests available, and other criteria are met, FDA can make tests available under an emergency access mechanism called an Emergency Use Authorization (EUA). The EUA for this test is supported by the [place] of Health and Human Service's (HHS's) declaration that circumstances exist to justify the emergency use of in vitro diagnostics for the detection and/or diagnosis of the virus that causes COVID-19. This EUA will remain in effect (meaning this test can be used) for the duration of the COVID-19 declaration justifying emergency of IVDs, unless it is terminated or revoked by FDA (after which the test may no longer be used). When diagnostic testing is negative, the possibility of a false negative should be considered in the context of a patient's recent exposures and the presence of clinical signs and symptoms consistent with SARS-CoV-2. Performed By: #### [facility] #### [facility] [address] [place] [address] Dr. Paz Bukr INFLUENZA A AND B AGon 02-23 INFLUANEGH SEE BELOW Normal [facility] Comment on above: Result Comment: Nega tive for Flu A protein angiten. Infection due to Flu A cannot be ruled out. Flu A angiten in the sample may be below the detection limit of the test. Performed By: #### I NFLUAB #### [facility] [address] [place] [address] Dr. Paz Burk [facility] SEE BELOW Normal [facility] Comment on above: Result Comment: Nega tive for Flu B protein antigen. Infection due to Flu B cannot be ruled out. Flu B antigen in the sample may be below the detection limit of the test. Performed By: #### I NFLUAB #### [facility] [address] [place] [address] Dr. Paz Bukr INFLUENZA A AG Negative Normal NEGATIVE SEE COMMENT [facility] Comment on above: Performed By: #### I NFLUAB #### [facility] [address] [place] [address] Dr. Paz Burk INFLUENZA B AG Negative Normal NEGATIVE SEE COMMENT [facility] Comment on above: Performed By: #### I NFLUAB #### [facility] [address] [place] [address] Dr. Paz Burk Physician Orderon 02-14-2022 Physician Order [id number] #1.00CD:127 Normal [facility] BNPon 01-20-2022 Natriuretic peptide B (Bld) [Mass/Vol] 125.0 pg/mL Normal <=450.0 [facility] Comment on above: Performed By: #### C VDTBH #### [facility] [address] [place] [address] Dr. Paz Burk CBC AUTO DIFFon 01-20-2022 BASO # 0.0 103/ul Normal 0.0-0.1 [facility] Comment on above: Performed By: #### C BC #### [facility] [address] [place] [address] Dr. Paz Burk Basophils/100 WBC (Bld) 0.2 % Normal 0.2-2.0 [facility] Comment on above: Performed By: #### C BC #### [facility] [address] [place] [address] Dr. Paz Burk EO # 0.2 103/ul Normal 0.0-0.7 [facility] Comment on above: Performed By: #### C BC #### [facility] [address] [place] [address] Dr. Paz Burk Eosinophils/100 WBC (Bld) 1.2 % Normal 0.9-7.0 [facility] Comment on above: Performed By: #### C BC #### [facility] [address] [place] [address] Dr. Paz Burk Erythrocyte distribution width (RBC) [Ratio] 14.4 % Normal 11.0-15.0 [facility] Comment on above: Performed By: #### C BC #### [facility] [address] [place] [address] Dr. Paz Burk Hematocrit (Bld) [Volume fraction] 37.3 % Normal 36.0-48.0 [facility] Comment on above: Performed By: #### C BC #### [facility] [address] [place] [address] Dr. Paz Burk Hemoglobin (Bld) [Mass/Vol] 12.3 g/dL Normal 12.0-16.0 [facility] Comment on above: Performed By: #### C BC #### [facility] [address] [place] [address] Dr. Paz Burk IG # 0.07 10e3/ul Critically high 0.00-0.03 [facility] Comment on above: Performed By: #### C BC #### [facility] [address] [place] [address] Dr. Paz Burk IG % 0.5 % Normal 0.0-0.5 [facility] Comment on above: Performed By: #### C BC #### [facility] [address] [place] [address] Dr. Paz Burk LYMPH # 3.0 103/ul Normal 1.2-3.8 [facility] Comment on above: Performed By: #### C BC #### [facility] [address] [place] [address] Dr. Paz Burk Lymphocytes/100 WBC (Bld) 21.2 % Normal 20.5-60.0 [facility] Comment on above: Performed By: #### C BC #### [facility] [address] [place] [address] Dr. Paz Burk MANUAL DIFF REQ NO Normal [facility] Comment on above: Performed By: #### C BC #### [facility] [address] [place] [address] Dr. Paz Burk MCH (RBC) [Entitic mass] 26.8 pg Normal 26.7-34.0 [facility] Comment on above: Performed By: #### C BC #### [facility] [address] [place] [address] Dr. Paz Burk MCHC (RBC) [Mass/Vol] 33.0 g/dL Normal 29.9-35.2 [facility] Comment on above: Performed By: #### C BC #### [facility] [address] [place] [address] Dr. Paz Burk MCV (RBC) [Entitic vol] 81.3 fL Normal 81.0-99.0 [facility] Comment on above: Performed By: #### C BC #### [facility] [address] [place] [address] Dr. Paz Burk MONO # 0.7 103/ul Normal 0.3-0.8 [facility] Comment on above: Performed By: #### C BC #### [facility] [address] [place] [address] Dr. Paz Burk Monocytes/100 WBC (Bld) 4.8 % Normal 1.7-12.0 [facility] Comment on above: Performed By: #### C BC #### [facility] [address] [place] [address] Dr. Paz Burk NEUT # 10.3 103/ul Critically high 1.4-6.5 [facility] Comment on above: Performed By: #### C BC #### [facility] [address] [place] [address] Dr. Paz Burk Neutrophils/100 WBC (Bld) 72.1 % Normal 43.0-75.0 [facility] Comment on above: Performed By: #### C BC #### [facility] [address] [address] [address] Paz Burk Platelet mean volume (Bld) [Entitic vol] 11.2 fL Normal 9.5-13.5 [facility] Comment on above: Performed By: #### C BC #### [facility] [id number] Paz Burk PLT 277 103/ul Normal 150-450 [facility] Comment on above: Performed By: #### C BC #### [facility] [address] [address] [address] Paz Burk RBC 4.59 106/ul Normal 4.20-5.40 [facility] Comment on above: Performed By: #### C BC #### [facility] [address] [address] [address] Paz Burk WBC 14.3 103/ul Critically high 4.0-11.0 [facility] Comment on above: Performed By: #### C BC #### [facility] [address] [place] [address] Dr. Paz Burk CTA CHEST WO W CONon 022 CTA CHEST WO W CON EXAMINATION: CTA CHEST WO W CON HISTORY: Mid chest pain radiating to the back, painful with inspiration. COMPARISON: Chest x-ray 01/19/2022 TECHNIQUE: CT angiography of the pulmonary arteries following the administration of 100 mL Omnipaque 350 intravenous contrast. Coronal and sagittal MIP (maximum intensity projection) images were performed. 3-D reconstruction. Dose reduction techniques were achieved by using automated exposure control and/or adjustment of mA and/or kV according to patient size and/or use of iterative reconstruction technique. FINDINGS: No evidence for acute pulmonary embolism. No thoracic aortic aneurysm. Extensive cardiac motion streak artifact degrades evaluation of the thoracic aorta and makes it difficult to differentiate linear streak artifact of the thoracic aorta from dissection flap. Borderline prominent heart size. No large pericardial effusion. Central airway is patent. Trace bilateral pleural effusions and mild bilateral lower lung atelectasis/edema. No focal lung lobar consolidation or pneumothorax. No suspicious ground glass lung infiltrates. Visualized portions of the upper abdomen are unremarkable. No acute bony abnormality. IMPRESSION: No evidence for acute pulmonary embolism or thoracic aortic aneurysm. Extensive cardiac motion streak artifact degrades evaluation of the thoracic aorta and makes it difficult to differentiate linear streak artifact of the thoracic aorta from dissection flap. Correlate clinically. If there is persistent clinical concern, another cardiac gated CT angiogram should be considered. Borderline prominent heart size. No large pericardial effusion. Trace bilateral pleural effusions and mild bilateral lower lung atelectasis/edema. Electronically authenticated by: LUIS DONATO Date: 2022-01-20 03:10 Normal [facility] Covid-19 PCR (CVDTBH)on 12-29 SARS-CoV-2 (COVID-19) RNA IGNACIO+probe Ql (Unsp spec) Not detected Normal NOT DETECTED [facility] Comment on above: Result Comment: When diagnostic testing is negative, the possibility of a false negative should be considered in the context of a patient's recent exposures and the presence of clinical signs and symptoms consistent with SARS-CoV-2. This test is not yet approved or cleared by the [place] FDA. When there are no FDA-approved or cleared tests available, and other criteria are met, FDA can make tests available under an emergency access mechanism called an Emergency Use Authorization (EUA). The EUA for this test is supported by the [place] of Health and Human Service's declaration that circumstances exist to justify the emergency use of in vitro diagnostics for the detection and/or diagnosis of the virus that causes COVID-19. This EUA will remain in effect for the duration of the COVID-19 declaration justifying emergency of IVDs, unless it is terminated or revoked by the FDA (after which the test may no longer be used). Performed By: #### C VDTBH #### [facility] [address] [address] [address] Paz Burk D-DIMERon 01-20-2022 D-DIMER 0.40 mg/L FEU Normal <=0.59 [facility] Comment on above: Performed By: #### C MP #### [facility] [address] [place], [place] [address] Dr. Paz Burk D-DIMER COMMENTS SEE BELOW Normal [facility] Comment on above: Result Comment: Incr eases in D-Dimer concentration observed with thromboembolic events can be variable due to localization, size, and age of the thrombus. Therefore, a thromboembolic event cannot be diagnosed with certainty on the basis of the reference range. D-Dimers may also be elevated for a variety of disorders including: advanced age, , coronary disease, cancer, liver disease, infection, inflammation, hematoma, DIC, trauma, post-surgery, diabetes, thrombolytic or anticoagulant therapy, stress, and generalized hospitalization. Performed By: #### C MP #### [facility] [address] [place] [address] Dr. Paz Burk PREG HCG QUALon 01-20-2022 , QUAL Negative Normal NEGATIVE [facility] Comment on above: Performed By: #### C MP #### [facility] [address] [place] [address] Dr. Paz Burk PROF 14(COMP METB)on 022 Albumin [Mass/Vol] 3.3 g/dL Critically low 3.4-5.0 [facility] Comment on above: Performed By: #### C VDTBH #### [facility] [address] [place] [address] Dr. Paz Burk Albumin/Globulin [Mass ratio] 0.8 {ratio} Normal [facility] Comment on above: Performed By: #### C VDTBH #### [facility] [address] [place] [address] Dr. Paz Burk ALP [Catalytic activity/Vol] 95 U/L Normal 46-116 [facility] Comment on above: Performed By: #### C VDTBH #### [facility] [address] [place] [address] Dr. Paz Burk ALT [Catalytic activity/Vol] 15 U/L Normal 14-59 [facility] Comment on above: Performed By: #### C VDTBH #### [facility] [address] [place] [address] Dr. Paz Burk Anion gap [Moles/Vol] 10.4 mmol/L Normal [facility] Comment on above: Performed By: #### C VDTBH #### [facility] [address] [address] [address] Paz Burk AST [Catalytic activity/Vol] 10 U/L Critically low 15-37 [facility] Comment on above: Performed By: #### C VDTBH #### [facility] [address] [place] [address] Dr. Paz Burk Bilirubin [Mass/Vol] 0.1 mg/dL Critically low 0.2-1.0 [facility] Comment on above: Performed By: #### C VDTBH #### [facility] [address] [place] [address] Dr. Paz Burk Calcium [Mass/Vol] 8.8 mg/dL Normal 8.5-10.1 [facility] Comment on above: Performed By: #### C VDTBH #### [facility] [address] [place] [address] Dr. Paz Burk Chloride [Moles/Vol] 105 mmol/L Normal 98-107 [facility] Comment on above: Performed By: #### C VDTBH #### [facility] [address] [place] [address] Dr. Paz Burk CO2 [Moles/Vol] 25.3 mmol/L Normal 21.0-32.0 [facility] Comment on above: Performed By: #### C VDTBH #### [facility] [address] [place] [address] Dr. Paz Burk Creatinine [Mass/Vol] 0.83 mg/dL Normal 0.55-1.02 [facility] Comment on above: Performed By: #### C VDTBH #### [facility] [address] [place] [address] Dr. Paz Burk EGFR-AF CITIZ[place] >60 Normal >=60 [facility] Comment on above: Performed By: #### C VDTBH #### [facility] [address] [place] [address] Dr. Paz Burk EGFR-NON AF CITIZEN [place] >60 Normal >=60 [facility] Comment on above: Performed By: #### C VDTBH #### [facility] [address] [place] [address] Dr. Paz Burk Globulin (S) [Mass/Vol] 4.1 g/dL Normal [facility] Comment on above: Performed By: #### C VDTBH #### [facility] [address] [address] [address] Paz Burk Glucose [Mass/Vol] 102 mg/dL Normal 74-106 [facility] Comment on above: Performed By: #### C VDTBH #### [facility] [address] [address] [address] Paz Burk Potassium [Moles/Vol] 3.7 mmol/L Normal 3.5-5.1 [facility] Comment on above: Performed By: #### C VDTBH #### [facility] [address] [place] [address] Dr. Paz Burk Protein [Mass/Vol] 7.4 g/dL Normal 6.4-8.2 [facility] Comment on above: Performed By: #### C VDTBH #### [facility] [address] [address] [address] Paz Burk Sodium [Moles/Vol] 137 mmol/L Normal 136-145 [facility] Comment on above: Performed By: #### C VDTBH #### [facility] [address] [place] [address] Dr. Paz Burk Urea nitrogen [Mass/Vol] 11.0 mg/dL Normal 7.0-18.0 [facility] Comment on above: Performed By: #### C VDTBH #### [facility] [address] [place] [address] Dr. Paz Burk Urea nitrogen/Creatinine [Mass ratio] 13.3 mg/mg Normal [facility] Comment on above: Performed By: #### C VDTBH #### [facility] [address] [address] [address] Paz Burk TROPONIN, HIGH SENSITIVITYon 01-20-2022 HSTROP 4.2 pg/mL Normal 4.0-51.3 [facility] Comment on above: Result Comment: CUT- OFF POINTS HAVE BEEN ESTABLISHED BASED ON THE FOURTH UNIVERSAL DEFINITIONS OF MYOCARDIAL INFARCTION. THE UPPER REFERENCE LIMIT (URL) OF TROPONIN, DEFINED THE 99TH PERCENTILE OF cTnI DISTRIBUTION IN A REFERENCE POPULATION, HAS BEEN CONFIRMED THE DECISION THRESHOLD FOR [place] DIAGNOSIS. Performed By: #### C #### [facility] [address] [place] [address] Dr. Paz Burk HSTROP <4.0 Normal 4.0-51.3 [facility] Comment on above: Result Comment: CUT- OFF POINTS HAVE BEEN ESTABLISHED BASED ON THE FOURTH UNIVERSAL DEFINITIONS OF MYOCARDIAL INFARCTION. THE UPPER REFERENCE LIMIT (URL) OF TROPONIN, DEFINED THE 99TH PERCENTILE OF cTnI DISTRIBUTION IN A REFERENCE POPULATION, HAS BEEN CONFIRMED THE DECISION THRESHOLD FOR [place] DIAGNOSIS. Performed By: #### C VDTB #### [facility] [address] [place] [address] Dr. Paz Burk XR CHEST 1 Von 01-20-2022 XR CHEST 1 V EXAM: XR CHEST 1 V HISTORY: CHEST PAIN, UNSPECIFIED COMPARISON: None. TECHNIQUE: One view of the chest was obtained. FINDINGS: The cardiac silhouette is mildly enlarged. There is interstitial prominence. There is no significant pneumothorax. There are possible trace bilateral pleural effusions. No acute osseous abnormality is seen. IMPRESSION: 1. Mildly enlarged cardiac silhouette with possible trace bilateral pleural effusions and interstitial prominence suggestive of edema. Electronically authenticated by: Cornel QUIÑONES Date: 2022-01-19 23:43 Normal [facility] CBC AUTO DIFFon 12-21-2021 BASO # 0.0 103/ul Normal 0.0-0.1 [facility] Comment on above: Performed By: #### C VDTB #### [facility] [address] [place] [address] Dr. Paz Burk Basophils/100 WBC (Bld) 0.3 % Normal 0.2-2.0 [facility] Comment on above: Performed By: #### C VDTB #### [facility] [address] [place] [address] Dr. Paz Burk EO # 0.2 103/ul Normal 0.0-0.7 [facility] Comment on above: Performed By: #### C VDTBH #### [facility] [address] [place] [address] Dr. Paz Burk Eosinophils/100 WBC (Bld) 1.2 % Normal 0.9-7.0 [facility] Comment on above: Performed By: #### C VDTBH #### [facility] [address] [place] [address] Dr. Paz Burk Erythrocyte distribution width (RBC) [Ratio] 14.4 % Normal 11.0-15.0 [facility] Comment on above: Performed By: #### C VDTBH #### [facility] [address] [place] [address] Dr. Paz Burk Hematocrit (Bld) [Volume fraction] 37.7 % Normal 36.0-48.0 [facility] Comment on above: Performed By: #### C VDTBH #### [facility] [address] [place] [address] Dr. Paz Burk Hemoglobin (Bld) [Mass/Vol] 12.0 g/dL Normal 12.0-16.0 [facility] Comment on above: Performed By: #### C VDTBH #### [facility] [address] [place] [address] Dr. Paz Burk IG # 0.06 10e3/ul Critically high 0.00-0.03 [facility] Comment on above: Performed By: #### C VDTBH #### [facility] [address] [place] [address] Dr. Paz Burk IG % 0.4 % Normal 0.0-0.5 [facility] Comment on above: Performed By: #### C VDTBH #### [facility] [address] [place] [address] Dr. Paz Burk LYMPH # 3.1 103/ul Normal 1.2-3.8 [facility] Comment on above: Performed By: #### C VDTBH #### [facility] [address] [place] [address] Dr. Paz Burk Lymphocytes/100 WBC (Bld) 21.8 % Normal 20.5-60.0 [facility] Comment on above: Performed By: #### C VDTBH #### [facility] [address] [place] [address] Dr. Paz Burk MANUAL DIFF REQ NO Normal [facility] Comment on above: Performed By: #### C VDTBH #### [facility] [address] [place] [address] Dr. Paz Burk MCH (RBC) [Entitic mass] 26.1 pg Critically low 26.7-34.0 [facility] Comment on above: Performed By: #### C VDTBH #### [facility] [address] [place] [address] Dr. Paz Burk MCHC (RBC) [Mass/Vol] 31.8 g/dL Normal 29.9-35.2 [facility] Comment on above: Performed By: #### C VDTBH #### [facility] [address] [place] [address] Dr. Paz Burk MCV (RBC) [Entitic vol] 82.0 fL Normal 81.0-99.0 [facility] Comment on above: Performed By: #### C VDTBH #### [facility] [address] [place] [address] Dr. Paz Burk MONO # 0.8 103/ul Normal 0.3-0.8 [facility] Comment on above: Performed By: #### C VDTBH #### [facility] [address] [place] [address] Dr. Paz Burk Monocytes/100 WBC (Bld) 5.9 % Normal 1.7-12.0 [facility] Comment on above: Performed By: #### C VDTBH #### [facility] [address] [place] [address] Dr. Paz Burk NEUT # 10.0 103/ul Critically high 1.4-6.5 [facility] Comment on above: Performed By: #### C VDTBH #### [facility] [address] [place] [address] Dr. Paz Burk Neutrophils/100 WBC (Bld) 70.4 % Normal 43.0-75.0 [facility] Comment on above: Performed By: #### C VDTBH #### [facility] [address] [address] [address] Paz Burk Platelet mean volume (Bld) [Entitic vol] 11.0 fL Normal 9.5-13.5 [facility] Comment on above: Performed By: #### C VDTBH #### [facility] [address] [place] [address] Dr. Paz Burk PLT 308 103/ul Normal 150-450 [facility] Comment on above: Performed By: #### C VDTBH #### [facility] [address] [place] [address] Dr. Paz Burk RBC 4.60 106/ul Normal 4.20-5.40 [facility] Comment on above: Performed By: #### C VDTBH #### [facility] [address] [place] [address] Dr. Paz Burk WBC 14.2 103/ul Critically high 4.0-11.0 [facility] Comment on above: Performed By: #### C VDTBH #### [facility] [address] [place] [address] Dr. Paz Burk PROF 14(COMP METB)on 022 Albumin [Mass/Vol] 3.4 g/dL Normal 3.4-5.0 [facility] Comment on above: Performed By: #### C MP #### [facility] [address] [place] [address] Dr. Paz Burk Albumin/Globulin [Mass ratio] 0.8 {ratio} Normal [facility] Comment on above: Performed By: #### C MP #### [facility] [address] [place] [address] Dr. Paz Burk ALP [Catalytic activity/Vol] 86 U/L Normal 46-116 [facility] Comment on above: Performed By: #### C MP #### [facility] [address] [place] [address] Dr. Paz Burk ALT [Catalytic activity/Vol] 26 U/L Normal 14-59 [facility] Comment on above: Performed By: #### C MP #### [facility] [address] [address] [address] Paz Burk Anion gap [Moles/Vol] 14.6 mmol/L Normal [facility] Comment on above: Performed By: #### C MP #### [facility] [address] [address] [address] Paz Burk AST [Catalytic activity/Vol] 15 U/L Normal 15-37 [facility] Comment on above: Performed By: #### C MP #### [facility] [address] [address] [address] Paz Burk Bilirubin [Mass/Vol] 0.2 mg/dL Normal 0.2-1.0 [facility] Comment on above: Performed By: #### C MP #### [facility] [address] [place] [address] Dr. Paz Burk Calcium [Mass/Vol] 8.5 mg/dL Normal 8.5-10.1 [facility] Comment on above: Performed By: #### C MP #### [facility] [address] [address] [address] Paz Burk Chloride [Moles/Vol] 104 mmol/L Normal 98-107 [facility] Comment on above: Performed By: #### C MP #### [facility] [address] [address] [address] Paz Burk CO2 [Moles/Vol] 26.5 mmol/L Normal 21.0-32.0 [facility] Comment on above: Performed By: #### C MP #### [facility] [address] [address] [address] Paz Burk Creatinine [Mass/Vol] 0.88 mg/dL Normal 0.55-1.02 [facility] Comment on above: Performed By: #### C MP #### [facility] [address] [address] [address] Paz Burk EGFR-AF [place]IZ[place] >60 Normal >=60 [facility] Comment on above: Performed By: #### C MP #### [facility] [address] [place] [address] Dr. Paz Burk EGFR-NON AF [place]IZ[place] >60 Normal >=60 [facility] Comment on above: Performed By: #### C MP #### [facility] [address] [place] [address] Dr. Paz Burk Globulin (S) [Mass/Vol] 4.4 g/dL Normal [facility] Comment on above: Performed By: #### C MP #### [facility] [address] [address] [address] Paz Burk Glucose [Mass/Vol] 116 mg/dL Critically high 74-106 [facility] Comment on above: Performed By: #### C MP #### [facility] [address] [place] [address] Dr. Paz Burk Potassium [Moles/Vol] 3.1 mmol/L Critically low 3.5-5.1 [facility] Comment on above: Performed By: #### C MP #### [facility] [address] [place] [address] Dr. Paz Burk Protein [Mass/Vol] 7.8 g/dL Normal 6.4-8.2 [facility] Comment on above: Performed By: #### C MP #### [facility] [address] [place] [address] Dr. Paz Burk Sodium [Moles/Vol] 142 mmol/L Normal 136-145 [facility] Comment on above: Performed By: #### C MP #### [facility] [address] [place] [address] Dr. Paz Burk Urea nitrogen [Mass/Vol] 8.0 mg/dL Normal 7.0-18.0 [facility] Comment on above: Performed By: #### C MP #### [facility] [address] [place] [address] Dr. Paz Burk Urea nitrogen/Creatinine [Mass ratio] 9.1 mg/mg Normal [facility] Comment on above: Performed By: #### C MP #### [facility] [address] [place] [address] Dr. Paz Burk PROTIMEon 10-25-2022 INR Coag (PPP) [Relative time] 1.05 {INR} Normal [facility] Comment on above: Performed By: #### P TT, PT #### [facility] [address] [place] [address] Dr. Paz Burk INR GUIDELINES SEE BELOW Normal [facility] Comment on above: Result Comment: NANO RED INR: 2.0 - 3.0 CONDITIONS NOT LISTED BELOW 2.5 - 3.5 FOR PROSTHETIC HEART VALVE REPLACEMENT 2.5 - 3.5 RECURRENT THROMBOSIS Performed By: #### P TT, PT #### [facility] [address] [place] [address] Dr. Paz Burk PT Coag (PPP) [Time] 11.3 s Normal 9.0-11.6 [facility] Comment on above: Performed By: #### P TT, PT #### [facility] [address] [place] [address] Dr. Paz Burk PTTon 12-21-2021 aPTT Coag (Bld) [Time] 32.5 s Normal 22.3-36.2 [facility] Comment on above: Performed By: #### P TT, PT #### [facility] [address] [place] [address] Dr. Paz Burk BLOOD GASES BTYon 11-29-2021 02 MODE ROOM AIR Normal [facility] Comment on above: Performed By: #### C VDTBH #### [facility] [address] [place] [address] Dr. Paz Burk ALLENS TEST Positive Normal [facility] Comment on above: Performed By: #### C VDTBH #### [facility] [address] [place] [address] Dr. Paz Burk Base excess Calc (Bld) [Moles/Vol] 0.7 mmol/L Normal -2.0-2.0 [facility] Comment on above: Performed By: #### C VDTBH #### [facility] [address] [place] [address] Dr. Paz Burk BIPAP PRESSURE Normal [facility] Comment on above: Performed By: #### C VDTBH #### [facility] [address] [address] [address] Paz Burk CPAP [facility] Comment on above: Performed By: #### C VDTBH #### [facility] [address] [place] [address] Dr. Paz Burk FIO2 [facility] Comment on above: Performed By: #### C VDTBH #### [facility] [address] [place] [address] Dr. Paz Burk HCO3 (Bld) [Moles/Vol] 25.3 mmol/L Normal 22.0-26.0 [facility] Comment on above: Performed By: #### C VDTBH #### [facility] [address] [place] [address] Dr. Paz Burk LPM [facility] Comment on above: Performed By: #### C VDTBH #### [facility] [address] [place] [address] Dr. Paz Burk MINUTE VOLUME Normal [facility] Comment on above: Performed By: #### C VDTBH #### [facility] [address] [place] [address] Dr. Paz Burk Oxygen (Bld) [Partial pressure] 96.1 mm[Hg] Normal 80.0-100.0 [facility] Comment on above: Performed By: #### C VDTBH #### [facility] [address] [place] [address] Dr. Paz Burk Oxygen saturation in Blood 99.0 % Normal 95.0-100.0 [facility] Comment on above: Performed By: #### C VDTBH #### [facility] [address] [place] [address] Dr. Paz Burk PCO2 35.8 mmHg Normal 35.0-45.0 [facility] Comment on above: Performed By: #### C VDTBH #### [facility] [address] [place] [address] Dr. Paz Burk PEEP [facility] Comment on above: Performed By: #### C VDTBH #### [facility] [address] [place] [address] Dr. Paz Burk pH (Bld) 7.448 [pH] Normal 7.350-7.450 [facility] Comment on above: Performed By: #### C VDTBH #### [facility] [address] [place] [address] Dr. Paz Burk [facility] Comment on above: Performed By: #### C VDTBH #### [facility] [address] [place] [address] Dr. Paz Burk [facility] Comment on above: Performed By: #### C VDTBH #### [facility] [address] [place] [address] Dr. Paz Burk PUNCTURE SITE RR [facility] Comment on above: Performed By: #### C VDTBH #### [facility] [address] [place] [address] Dr. Paz Burk [facility] Comment on above: Performed By: #### C VDTBH #### [facility] [address] [place] [address] Dr. Paz Burk [facility] Comment on above: Performed By: #### C VDTBH #### [facility] [address] [place] [address] Dr. Paz Burk [facility] Comment on above: Performed By: #### C VDTBH #### [facility] [address] [place] [address] Dr. Paz Burk CULTURE URINEon 08-21-2021 CULTURE URINE Culture Observations: MODERATE GROWTH OF MIXED GENITAL TING. NO POTENTIAL PATHOGENS SEEN. [facility] Comment on above: Performed By: #### C MP #### [facility] [address] [place] [address] Dr. Paz Burk ER URINE PROFILEon 2 Bilirubin Ql (U) Negative Normal NEGATIVE [facility] Comment on above: Performed By: #### C MP #### [facility] [address] [address] [address] Paz Burk Clarity (U) CLEAR Normal CLEAR [facility] Comment on above: Performed By: #### C MP #### [facility] [address] [address] [address] Paz Burk Color (U) LT. YELLOW Normal YELLOW [facility] Comment on above: Performed By: #### C MP #### [facility] [address] [place] [address] Dr. Paz Burk ERUAHD A micrscopic examination will be performed if indicated. Normal [facility] Comment on above: Performed By: #### C MP #### [facility] [address] [place] [address] Dr. Paz Burk Glucose Ql (U) Negative Normal NEGATIVE [facility] Comment on above: Performed By: #### C MP #### [facility] [address] [place] [address] Dr. Paz Burk Hemoglobin Ql (U) Negative Normal NEGATIVE [facility] Comment on above: Performed By: #### C MP #### [facility] [address] [place] [address] Dr. Paz Burk Ketones Ql (U) Negative Normal NEGATIVE [facility] Comment on above: Performed By: #### C MP #### [facility] [address] [place] [address] Dr. Paz Burk LEUKOCYTES LARGE Abnormal NEGATIVE [facility] Comment on above: Performed By: #### C MP #### [facility] [address] [place] [address] Dr. Paz Burk Nitrite Ql (U) Negative Normal NEGATIVE [facility] Comment on above: Performed By: #### C MP #### [facility] [address] [place] [address] Dr. Paz Burk pH (U) 7.5 [pH] Normal 5-9 [facility] Comment on above: Performed By: #### C MP #### [facility] [address] [place] [address] Dr. Paz Burk SPEC GRAVITY 1.020 Normal 1.005-<=1.025 [facility] Comment on above: Performed By: #### C MP #### [facility] [address] [place] [address] Dr. Paz Burk UA PROTEIN Negative Normal NEGATIVE/ TRACE [facility] Comment on above: Performed By: #### C MP #### [facility] [address] [place] [address] Dr. Paz Burk UR MICRO IND INDICATED Normal [facility] Comment on above: Performed By: #### C MP #### [facility] [address] [place] [address] Dr. Paz Burk Urobilinogen Qn (U) 0.2 {Ara'U}/dL Normal 0.2 - 1. 0 [facility] Comment on above: Performed By: #### C MP #### [facility] [address] [place] [address] Dr. Paz Burk URon 08-21-2021 , QUAL Negative Normal NEGATIVE [facility] Comment on above: Performed By: #### C MP #### [facility] [address] [place] [address] Dr. Paz Burk URINE MICROSCOPIC ONLYon BACTERIA SMALL Abnormal NONE SEEN [facility] Comment on above: Performed By: #### C MP #### [facility] [address] [place] [address] Dr. Paz Burk Bacteria identified Cx Nom (U) INDICATED Normal [facility] Comment on above: Performed By: #### C MP #### [facility] [address] [place] [address] Dr. Paz Burk CAST NONE SEEN Normal NONE SEEN [facility] Comment on above: Performed By: #### C MP #### [facility] [address] [place] [address] Dr. Paz Burk Crystals LM Nom (Urine sed) NONE SEEN Normal NONE SEEN [facility] Comment on above: Performed By: #### C MP #### [facility] [address] [place] [address] Dr. Paz Burk Epithelial cells LM Ql (Urine sed) FEW Abnormal NONE SEEN /RARE [facility] Comment on above: Performed By: #### C MP #### [facility] [address] [address] [address] Paz Burk MUCOUS NONE SEEN Normal NONE SEEN [facility] Comment on above: Performed By: #### C MP #### [facility] [address] [address] [address] Paz Burk RBC NONE SEEN Abnormal 0-2 [facility] Comment on above: Performed By: #### C MP #### [facility] [address] [address] [address] Paz Burk WBC 5-10 Abnormal NONE SEEN [facility] Comment on above: Performed By: #### C MP #### [facility] [address] [address] [address] Paz Burk Vital Signs Date Time Vital Sign Value Performing Clinician Faci lity 06-29-2020 09:02-0400 Body height 167.64 cm Edith Ford Work Phone: [facility] 06-29-2020 09:02-0400 Body mass index (BMI) [Ratio] 48.2 kg/m2 Edith Ford Work Phone: [facility] 06-29-2020 09:02-0400 Body temperature 97.8 [degF] Edith Ford Work Phone: [facility] 06-29-2020 09:02-0400 Body weight 135.65 kg Edith Ford Work Phone: [facility] 06-29-2020 09:02-0400 Diastolic blood pressure 73 mm[Hg] Edith Ford Work Phone: [facility] 06-29-2020 09:02-0400 Heart rate 69 /min Edith Ford Work Phone: [facility] 06-29-2020 09:02-0400 Respiratory rate 16 /min Edith Ford Work Phone: [facility] 06-29-2020 09:02-0400 SaO2% (BldA) [Mass fraction] 98 % Edith Ford Work Phone: [facility] 06-29-2020 09:02040 Systolic blood pressure 130 mm[Hg] Edith Ford Work Phone: [facility] Encounters Encounter Date Encounter Type Care Provider Facility Start: 06-29-2023 End: 07-01-2023 ambulatory WALKER BLUM Not Available Start: 05-08-2022 End: 05-08-[address] DOCTOR MISC Facility:[facility] Start: 03-13-2022 End: 03-13-[address] DOCTOR MISC Facility: Start: 03-03-2022 End: 03-04-2022 ambulatory Neal Garcia Facility:[facility] Start: 03-03-2022 End: 03-03-2022 Patient encounter procedure Edith Ford [facility] Start: 02-23-2022 End: 02-24-[address] DOCTOR MISC Facility:[facility] Start: 01-20-2022 End: 01-20-[address] DOCTOR MISC Facility:[facility] Start: 12-21-2021 End: 12-21-[address] DOCTOR MISC Facility:[facility] Start: 11-29-2021 End: 11-29-[address] DOCTOR MISC Facility:[facility] Start: 08-21-2021 End: 08-21-[address] DOCTOR MISC Facility:[facility] Start: 06-29-2020 End: 06-29-2020 Emergency department patient visit Edith Ford Work Phone: [facility] Procedures Date Procedure Procedure Detail Performing Clinician Appendectomy Edith Bello n History of tympanostomy tubes in ears Pola Ford Tubes in Ears Edith Cho on Plan of Treatment Date Care Activity Detail Author Patient Education Muscle Strain (ED) [facility] Patient referral [facility] Payers Date Payer Category Payer Unknown [id number] 1998 Unknown [id number] 2.16.84 [id number] 1998 Unknown [id number] 2.16.84 [id number] 1998 Unknown [id number] 2.16.84 [id number] 1998 Unknown [id number] 2.16.84 [id number] 1998 Unknown [id number] 2.16.84 [id number] 1998 Unknown [id number] 2.16.84 [id number] 1998 Unknown [id number] 2.16.84 [id number] 1998 Unknown [id number] 2.16.84 [id number] 1998 Unknown [id number] 2.16.84 [id number] 1959 Unknown [id number] 1959 Unknown [id number] Self-pay Self Pay [id number] Social History Date Type Detail Facility Start: 06-29-2020 Tobacco smoking stat us NEIS Never smoked tobacco (finding) [facility] Start: 2000 Sex Assigned At Female F [facility] Tobacco Household tobacc o concerns: Yes. [facility] Tobacco smoking status No Smokin g Status Entered [facility] Sex Assigned At Female [facility] Goals Date Patient Goal Desired Activity /State Clinical Note 03-03-2022 Note Date & Type Note Facility 03-03-2022 Note Echocardiology Procedure Exam Date/Time Accession # Ordering Echo Transthoracic 03/03/2022 09:37 [facility] [id number] Edith Ford MD Complete CPT code [id number] Reason for Exam (Echo Transthoracic Complete) Cardiomegaly I51.7 Report [facility] [address] [place] [address] Adult Echocardiogram Report Name: JUAN DIEGO ROMERO Study Date: 03/03/2022 09:03 AM BP: 111/78 mmHg Patient Location: [facility] HR: 68 : 2000 Gender: Female Height: 66 in Age: 21 yrs Ethnicity: [facility] Weight: 298 lb Reason For Study: Cardiomegaly I51.7 BSA: 2.4 m2 History: No cardiac history per patient Ordering Physician: Edith Ford Referring Physician: Edith Ford Performed By: Tara Lilly [facility] Interpretation Summary No comparison study is available. Ejection Fraction = 60-65%. Normal diastolic function. There is trace tricuspid regurgitation. Right ventricular systolic pressure is 22 mmHg. The left ventricle is normal in size. Procedure A complete two-dimensional transthoracic echocardiogram was performed (2D, M-mode, spectral and color flow Doppler). Study quality is good. I WMSI = 1.00 % Normal = 100 Segments Size X - Cannot 2 - 1-2 small Interpret 1 - Normal Hypokinetic 3 - Akinetic 4 - Dyskinetic3-5 moderate 5 - Aneurysmal 6-14 large 15-16 diffuse Left Ventricle The left ventricle is normal in size. Ejection Fraction = 60-65%. The left ventricular wall motion is normal. Normal Echocardiology Report diastolic function. Left Atrium The left atrial size is normal. Right Atrium Right atrial size is normal. Right Ventricle The right ventricular systolic function is normal. Aortic Valve The aortic valve is trileaflet. Mitral Valve Mitral valve structure is normal. Tricuspid Valve Structurally normal tricuspid valve. There is trace tricuspid regurgitation. Right ventricular systolic pressure is 22 mmHg. Pulmonic Valve The pulmonic valve is normal. Arteries The aortic root is normal in size. Venous The inferior vena cava is normal in size, and collapses normally with respiration. Effusion There is no pericardial effusion. MMode/2D Measurements & Calculations RVDd: 3.3 cm LVIDd: 4.6 cm FS: 36.4 % Ao root diam: 3.3 cm IVSd: 0.96 cm LVIDs: 3.0 cm EDV(Teich): 99.4 ml Ao root area: 8.7 cm2 LVPWd: 1.0 cm ESV(Teich): 33.7 ml LA dimension: 4.0 cm EF(Teich): 66.1 % asc Aorta Diam: 3.2 cm LVLd ap4: 8.2 cm EDV(MOD-sp2): 135.0 ml SV(MOD-sp4): 66.8 ml EDV(MOD-sp4): 124.0 ml ESV(MOD-sp2): 59.9 ml LVLs ap4: 6.8 cm EF(MOD-sp2): 55.6 % ESV(MOD-sp4): 57.2 ml EF(MOD-sp4): 53.9 % TAPSE: 2.4 cm IVC Diam: 1.9 cm RVIDd/LVIDd: 0.70 EF (MOD-bp): 55.7 % LA Vol Index: 17.5 ml/m2 Doppler Measurements & Calculations MV E max grzegorz: 78.3 cm/sec Ao V2 max: 131.4 cm/sec LV V1 max P.4 mmHg MV A max grzegorz: 55.6 cm/sec MV dec slope: 429.6 cm/sec2 Ao max P.9 mmHg LV V1 mean P.2 mmHg Echocardiology Report MV E/A: 1.4 MV dec time: 0.18 sec Ao V2 mean: 92.0 cm/sec LV V1 max: 104.3 cm/sec Lat Peak E' Grzegorz: 12.8 cm/sec Ao mean P.8 mmHg LV V1 mean: 69.5 cm/sec E/E' Lat: 6.1 Ao V2 VTI: 27.2 cm LV V1 VTI: 21.6 cm Med Peak E' Grzegorz: 10.8 cm/sec E/E' Med: 7.3 TR max grzegorz: 215.0 cm/sec RAP systole: 3.0 mmHg AV VR: 0.80 MV P1/2t-pr_phl: 53.4 msec TR max P.5 mmHg RVSP(TR): 21.5 mmHg FINAL REPORT Dictated: 03/03/2022 9:03 am Neal Garcia MD Signed (Electronic Signature): 03/03/2022 12:31 pm Signed by: Neal Garcia MD Transcribed by: MATHEW Technologist: KEN [facility] Discharge instructions 06-29-2020 Note Date & Type Note Facility 06-29-2020 Hospital Discharg e instructions Additional Instructions Take the diclofenac twice a day as needed for pain take with food Take the muscle relaxer cyclobenzaprine up to 3 times a day as needed for muscle pain may make you sleepy Apply 1-2 lidocaine patches over the sores areas daily Ice or warm moist heat whichever helps the best Gentle stretching Try to avoid any heavy lifting excessive activity until improved Follow-up with your family doctor is pain does not improve Return to the ER for chest pain shortness of breath palpitations fever vomiting or any other concerns [facility] Evaluation + Plan note Note Date & Type Note Facility Evaluation + Plan note No data available for this section [facility] Evaluation note Note Date & Type Note Facility Evaluation note No Assessments Information Avail able [facility] Hospital Discharge instructions Note Date & Type Note Facility Hospital Discharge instructions No data available for this section [facility] Progress note Note Date & Type Note Facility Progress note No data available for this section [facility] Advance Directives No Advanced Directives Records Found Advance Directive Response Recorded Date/ Time Advance Directives No June 29, 2020 9:26am Chief Complaint and Reason for Visit Chief Complaint middle back pain Summary Purpose Family History No Family History Records FoundNo Family History Records FoundNo Family History Records Found Additional Source Comments Patient Care team informatio n (unrecognized section and content) Personnel Name: Edith Ford MD Address: Address: [address] [place] [id number] Name: Maggie Mazariegos INFORMATION SOURCE (unrecogn ized section and content) DATE CREATED AUTHOR 03/29/2022 [facility] DATE CREATED AUTHOR AUTHOR'S ORGANIZ ATION 05/13/2022 [facility] DATE CREATED AUTHOR AUTHOR'S ORGANIZ ATION 07/05/2023 [facility] EPIC FOR RECORDS PERTAINING TO PATIENTS WHO ARE OR HAVE BEEN ENROLLED IN A CHEMICAL DEPENDENCY/SUBSTANCEABUSE PROGRAM, SOME INFORMATION MAY BE OMITTED. This clinical summary was aggregated from multiple sources. Caution should be exercised in using it in the provision of clinical care. This summary normalizes information from multiple sources, and as a consequence, information in this document may materially change the coding, format and clinical context of patient data. In addition, data may be omitted in some cases. CLINICAL DECISIONS SHOULD BE BASED ON THE PRIMARY CLINICAL RECORDS. [facility]. provides no warranty or guarantee of the accuracy or completeness of information in this document.
--- NOTE | 2024-02-23 15:24 | ED.GENADUL1 ---
HPI HPI - General Adult General Chief complaint: Vaginal Bleeding Stated complaint: SPOTTING EARLY Time Seen by Provider: 02/23/24 14:57 Source: patient Mode of arrival: walk-in Limitations: no limitations History of Present Illness HPI narrative: The patient is 1 para 0 is coming to us with 2 weeks history of , the patient mentioned that she just 15 minutes before arrival was going to the bathroom when she urinated and she had some blood vaginally that is mild when she wipes only No abdominal pain at any time no nausea no vomiting no other concerns She did had some lip rash for the last few days that is not concerning for her at the moment Related Data Home Medications ?Medication ?Instructions ?Recorded ?Confirmed metformin 500 mg tablet,extended 500 mg PO DAILY 08/28/22 02/23/24 release 24 hr sertraline 100 mg tablet 100 mg PO Q24H 08/28/22 02/23/24 Previous Rx's ?Medication ?Instructions ?Recorded amoxicillin 875 mg-potassium 1 tab PO Q12H #10 tabs 02/11/24 clavulanate 125 mg tablet Allergies Allergy/AdvReac Type Severity Reaction Status Date / Time theophylline Allergy Rash Verified 02/11/24 06:06 Opioid HPI Opioid Management Most Recent Opioid Data: Last Pain Scale 7 02/23/24 16:10 02/23/24 Last ED Pain Assessment 02/23/24 16:10 Review of Systems ROS Status of ROS 10 or more systems reviewed and unremarkable except as noted in history and below [facility] Medical History (Updated 02/23/24 @ 18:21 by Christina Lombardo MD) PCOS (polycystic ovarian syndrome) ?E28.2 - Polycystic ovarian syndrome (ICD-10) Depression ?F32.A - Depression, unspecified (ICD-10) Social History Smoking status: Never smoker Little interest or pleasure in doing things: not at all Feeling down, depressed, or hopeless: not at all Exam Narrative Exam Narrative: Nurses notes and vital signs reviewed and patient is not hypoxic. General: Well-appearing and in no apparent distress. Skin: Warm, dry, no pallor noted. No rash. Head: Normocephalic, atraumatic. Neck: Supple, non-tender. Eye: Pupils are equal, round and EOMI. No scleral icterus. Ears, Nose, Mouth, and Throat: TM are clear, no nasal mucosal hypertrophy. Oral mucosa is moist, no posterior oropharynx erythema, uvula is mid-line. Patient does have some vesicular papular rash on her upper lip that is limited and healing Cardiovascular: Regular Rate and Rhythm without murmur, gallop or rub. Respiratory: No accessory muscle use or respiratory distress. Lungs are clear to auscultation, no wheezing, rales or rhonchi Chest Wall: no tenderness Back: No midline thoracic or lumbar vertebral tenderness. No CVA tenderness Musculoskeletal: normal ROM, no calf or popliteal tenderness, no lower extremity edema/swelling GI: Abdomen is soft, non-distended. Normal bowel sounds. No masses appreciated. No tenderness to palpation. No rebound, guarding, or rigidity noted. Neurological: A&O x4. No cranial nerve dysfunction observed. No truncal ataxia. Moves all extremities. Sensation intact. Psychiatric: Cooperative and interactive. Normal mood and affect. Constitutional Vital Signs, click to edit/add: Last Vital Signs Temp 98.3 F 02/23/24 14:59 Pulse 79 02/23/24 14:59 Resp 100 H 02/23/24 14:59 BP 118/72 02/23/24 14:59 Pulse Ox 99 02/23/24 14:59 Course Vital Signs Vital signs: Vital Signs Temperature 98.3 F 02/23/24 14:59 Pulse Rate 79 02/23/24 14:59 Respiratory Rate 100 H 02/23/24 14:59 Blood Pressure 118/72 02/23/24 14:59 Pulse Oximetry 99 02/23/24 14:59 Temperature 98.3 F 02/23/24 14:59 Pulse Rate 79 02/23/24 14:59 Respiratory Rate 100 H 02/23/24 14:59 Blood Pressure 118/72 02/23/24 14:59 Pulse Oximetry 99 02/23/24 14:59 Medical Decision Making [facility] Narrative Medical decision making narrative: The patient was now presenting to us with a mild bleeding that only happened 1 time CBC and chemistry showed no acute significant pathology and the patient hCG level is above 30,000 she had ultrasound of her pelvis showing intrauterine of twin that is normal and 6 weeks Right now the patient was provided with a RhoGAM injection because she is O- blood type group The patient right now will rest and avoid any exertion or any sexual encounter and she will follow-up with OB next week The patient is to follow up with primary care physician in next 2-3 days or to return to the emergency department should any of the signs or symptoms worsen or new symptoms develop. The patient agrees with the following Diagnosis and Treatment plan and the patient will be discharged home. Lab Data Labs: Lab Results 02/23/24 Range/Units 15:28 WBC 10.8 (4.0-11.0) 10^3/uL RBC 4.96 (4.20-5.40) 10^6/uL Hgb 12.7 (12.0-16.0) g/dL Hct 39.2 (36.0-48.0) % MCV 79.0 L (81.0-99.0) fL MCH 25.6 L (26.7-34.0) pg MCHC 32.4 (29.9-35.2) g/dL RDW 14.2 (11.0-15.0) % Plt Count 314 (150-450) 10^3/uL MPV 11.1 (9.5-13.5) fL Neut % (Auto) 75.2 H (43.0-75.0) % Lymph % (Auto) 17.3 L (20.5-60.0) % Chase % (Auto) 5.4 (1.7-12.0) % Eos % (Auto) 1.4 (0.9-7.0) % Baso % (Auto) 0.3 (0.2-2.0) % Neut # (Auto) 8.2 H (1.4-6.5) 10^3/uL Lymph # (Auto) 1.9 (1.2-3.8) 10^3/uL Chase # (Auto) 0.6 (0.3-0.8) 10^3/uL Eos # (Auto) 0.2 (0.0-0.7) 10^3/uL Baso # (Auto) 0.0 (0.0-0.1) 10^3/uL Abs Immat Gran (auto) 0.04 H (0.00-0.03) 10^3/uL Imm/Tot Granulo (auto) 0.4 (0.0-0.5) % Sodium 136 (136-145) mmol/L Potassium 3.7 (3.5-5.1) mmol/L Chloride 103 (98-107) mmol/L Carbon Dioxide 24.5 (21.0-32.0) mmol/L Anion Gap 12.2 BUN 5.0 L (7.0-18.0) mg/dL Creatinine 0.70 (0.55-1.02) mg/dL Est GFR ( Amer) >60 (>=60 mL/min/1.73m^2) Est GFR (Non-Af Amer) >60 (>=60 mL/min/1.73m^2) BUN/Creatinine Ratio 7.1 Glucose 95 (74-106) mg/dL Calcium 8.8 (8.5-10.1) mg/dL Total Bilirubin 0.3 (0.2-1.0) mg/dL AST 8 L (15-37) U/L ALT 15 (14-59) U/L Alkaline Phosphatase 77 (46-116) U/L Total Protein 7.6 (6.4-8.2) g/dL Albumin 3.3 L (3.4-5.0) g/dL Globulin 4.3 g/dL Albumin/Globulin Ratio 0.8 HCG, Quant 99747 mIU/mL Blood Type O Negative Antibody Screen Negative Rhogam Indicated Yes Discharge Plan Discharge Chief Complaint: Vaginal Bleeding Clinical Impression: Vaginal bleeding in patient after first trimester, Twin Patient Disposition: Home, Self-Care Time of Disposition Decision: 18:20 Condition: Good Prescriptions / Home Meds: No Action metformin 500 mg tablet extended release 24 hr 500 mg PO DAILY sertraline 100 mg tablet 100 mg PO Q24H Rx Instructions: at HS amoxicillin-pot clavulanate 875-125 mg tablet 1 tab PO Q12H Qty: 10 0RF Print Language: Indonesian Instructions: (ED) Referrals: Dhruv Recinos DO [Physician] - 1 week TERRELL CARUSO [Primary Care Provider] - 1 week
[2024-02-23 15:39] LABS: Basophils Percent Auto 0.3 % (0.2-2.0); Eosinophils Absolute Auto 0.2 10^3/uL (0.0-0.7); Eosinophils Percent Auto 1.4 % (0.9-7.0); Hematocrit 39.2 % (36.0-48.0); Hemoglobin 12.7 g/dL (12.0-16.0); Immature Granulocytes Abs Auto 0.04 10^3/uL (0.00-0.03); Immature Granulocytes Pct Auto 0.4 % (0.0-0.5); Lymphocytes Absolute Auto 1.9 10^3/uL (1.2-3.8); Lymphocytes Percent Auto 17.3 % (20.5-60.0); Mean Corpuscular HGB Conc 32.4 g/dL (29.9-35.2); Mean Corpuscular Hemoglobin 25.6 pg (26.7-34.0); Mean Platelet Volume 11.1 fL (9.5-13.5); Monocytes Absolute Auto 0.6 10^3/uL (0.3-0.8); Monocytes Percent Auto 5.4 % (1.7-12.0); Neutrophils Absolute Auto 8.2 10^3/uL (1.4-6.5); Neutrophils Percent Auto 75.2 % (43.0-75.0); Platelet Count 314 10^3/uL (150-450); Red Blood Count 4.96 10^6/uL (4.20-5.40); Red Cell Distribution Width 14.2 % (11.0-15.0); White Blood Count 10.8 10^3/uL (4.0-11.0)
[2024-02-23 15:53] LABS: Alanine Aminotransferase 15 U/L (14-59); Albumin Globulin Ratio 0.8; Albumin Level 3.3 g/dL (3.4-5.0); Alkaline Phosphatase 77 U/L (46-116); Anion Gap 12.2; Aspartate Amino Transferase 8 U/L (15-37); BUN Creatinine Ratio 7.1; Bilirubin Total 0.3 mg/dL (0.2-1.0); Calcium 8.8 mg/dL (8.5-10.1); Carbon Dioxide 24.5 mmol/L (21.0-32.0); Chloride 103 mmol/L (98-107); Estimated GFR (African America >60 (>=60 mL/min/1.73m^2); Estimated GFR (Non-African Ame >60 (>=60 mL/min/1.73m^2); Globulin 4.3 g/dL; Glucose 95 mg/dL (74-106); Potassium 3.7 mmol/L (3.5-5.1); Sodium 136 mmol/L (136-145); Total Protein 7.6 g/dL (6.4-8.2)
[2024-02-23 16:20] LABS: HCG Quantitative 32243 mIU/mL
--- NOTE | 2024-02-23 16:22 | US_ITS ---
The [address] [address] Patient Name: JUAN DIEGO ROMERO MRN: [id number] date: 2000 Sex: F Assigned Patient Location: ER Current Patient Location: ER Accession/Order Number: [id number] Exam Date: 02/23/2024 16:33 Report Date: 02/23/2024 18:03 At the request of: BRETT HE Procedure: US OB transvaginal Obstetrical ultrasound, 1st trimester CLINICAL: vaginal bleeding TECHNIQUE: Transabdominal and transvaginal obstetrical ultrasound was performed. FINDINGS: Comparison: None. UTERUS: A single intrauterine gestation sac is visualized. 2 yolk sacs and 2 pole is visualized within the gestational sac. [place] rump length for Fetus A is 8.3 mm, with heart rate of 138 beats per minutes. [place] rump length for Fetus B is 9.6 mm with heart rate of 138 beats per minute. OVARIES/ADNEXA: The right ovary is not visualized. The left ovary measures 1.4 x 1.2 x 1.3 cm and not well seen. There is color flow to the left ovary. OTHER FINDINGS: There are small cysts within the cervix. Cervix is closed. Negative for subchorionic hemorrhage. ULTRASOUND GESTATIONAL AGE AND ESTIMATED DATE OF CONFINEMENT: The estimated gestational age by ultrasound for Fetus A is 6 weeks 4 days with an estimated date of confinement by the ultrasound of 10/14/2024. The estimated gestational age by ultrasound for Fetus B is 7 weeks 0 days with an estimated date of confinement by the ultrasound of 10/11/2024. US/US OB transvaginal IMPRESSION: 1. Viable intrauterine twin gestation. 2 poles and 2 yolk sacs seen within one gestational sac. Findings compatible with monochorionic diamniotic . Fetus A with heart rate of 138 beats per minute, estimated gestational age by ultrasound is 6 weeks 4 days with an estimated date of confinement by ultrasound of 10/14/2024. Fetus B with heart rate of 138 beats per minute, estimated gestational age by ultrasound is 7 weeks 0 days with an estimated date of confinement by ultrasound of 10/11/2024. Recommend short interval follow-up to confirm amnionicity and intertwin membrane later in . 2. Normal left ovary. Right ovary not seen. 3. Negative for subchorionic hemorrhage. Closed cervix. Recommend followup imaging if symptoms worsen or persist. Electronically authenticated by: HANY CARTY Date: 02/23/2024 18:03
[2024-02-23] MEDS: RHO(D) IMMUNE GLOBULIN 1,500 UNIT SYRINGE 1500 UNIT IM (18:08)
[2024-02-23 18:29] VITALS: BP 112/80; PULSE 72; O2SAT 99
== END 2024-02-23 18:30 | disposition home or self-care (01) ==
PROVIDERS: Emergency Provider Emergency Medicine; PCP Family Medicine
DX: O20.9 Hemorrhage in early pregnancy, unspecified (principal); O30.031 Twin pregnancy, monochorionic/diamniotic, first trimester; Z3A.01 Less than 8 weeks gestation of pregnancy; O26.891 Other specified pregnancy related conditions, first trimester; Z67.41 Type O blood, Rh negative
CPT/HCPCS: 36415; 76817; 80053; 84702; 85025; 86850; 86900; 86901; 96372; 99285; J2791

== ENCOUNTER 2024-03-15 06:38 | Outpatient (OUT) | payer OTHER, SELFPAY ==
--- OUTSIDE RECORDS SUMMARY | 2024-03-15 06:40 | XMS_ITS | CCD ---
[facility] Team Providers Care Application Integration Architect Name Role Phone Edith Ford Primary Care [...] QUIÑONES Consulting Unavailable LUIS DONATO Consulting Unavailable Edith Ford MD Primary Care Provider WALKER BLUM Attending Unavailable WALKER BLUM Referring Unavailable Allergies Allergy Classification Reported Allergen(s) Allergy Type Date of Onset Reaction(s) Facility Theophylline (1 source) Theophylline Drug Allergy 06-30-19 [facility] (3 sources) SUMAtriptan; Translations: [sumatriptan] Drug Allergy 08-15-19 17 Pharyngeal swelling (finding), Shortness of breath [facility] (2 sources) Theophylline; Translations: [theophylline] Drug Allergy rash [facility] (1 source) Theophylline Drug Allergy 09-24-19 19 [facility] (1 source) Theophyllines Drug Intolerance 09-29-19 11 Hives, Rash [facility] Medications Current Medications Medication Drug Class(es) Dates [...] painful area for up to 12 hrs 24 hr metFORMIN hydrochloride 500 mg extended release oral tablet (2 sources) Biguanide Start: 08-07-2023 End: 03-08-2024 take 1 tablet by mouth every twenty-four hours at mealtime metFORMIN XR (Glucophage-XR) 500 MG 24 hr tablet Indications: Encounter for weight management Take 1 tablet (500 mg) by mouth in the evening. Take with meals Do not crush, chew, or split. 30 tablet 2 10/31/2023 03/08/2024 Discontinued naproxen 500 mg oral tablet (1 source) Nonsteroidal Anti-inflammatory Drug Start: 12-13-2018 take 1 tablet by mouth twice daily at mealtime Naprosyn 500 mg Tab 500 mg = 1 tab(s), Oral, BID, with food, # 60 tab(s), Refills(s) 0 Start Date: 12/13/18 Status: Ordered ondansetron 4 mg disintegrating oral tablet (1 source) Serotonin-3 Receptor Antagonist Start: 03-08-2024 End: 04-07-2024 take 1 tablet by mouth every six hours as needed for nausea and vomiting and nausea and nausea ondansetron ODT (Zofran-ODT) 4 MG disintegrating tablet Indications: Nausea Take 1 tablet (4 mg) by mouth every 6 (six) hours if needed for nausea or vomiting 30 tablet 2 03/08/2024 04/07/2024 Active Vit-Fe Fumarate-FA ( Vitamins) 28-0.8 MG tablet (1 source) Start: 03-08-2024 End: 03-08-2025 take 1 tablet by mouth once daily Vit-Fe Fumarate-FA ( Vitamins) 28-0.8 MG tablet Indications: , unspecified gestational age , Encounter for supervision of normal first in first trimester Take 1 tablet by mouth Daily 30 tablet 11 03/08/2024 03/08/2025 Active sertraline 100 mg oral tablet (1 source) Serotonin Reuptake Inhibitor Start: 06-08-2023 End: 03-08-2024 take 1 tablet by mouth once daily sertraline (Zoloft) 100 MG tablet Take 100 mg by mouth Daily 06/08/2023 03/08/2024 Discontinued Bactrim (1 source) Dihydrofolate Reductase Inhibitor Antibacterial, [...] including migraine; Translations: [HEADACHE UNSPECIFIED] Onset: 11-29-2021 Menstrual disorders (1 source) Missed period; Translations: [Irregular menstruation, unspecified] 03-08-2024 Chronic Mood disorders (1 source) Bipolar disorder 12-25-2018 Chronic Nausea and vomiting (6 sources) Nausea; Translations: [Nausea with vomiting, unspecified] Onset: 08-21-2021 Episodic Nonspecific chest pain (5 sources) Other chest [...] BMI 45.0-49.9 ADULT] Onset: 03-15-2022 Chronic Other and delivery including normal (2 sources) ; Translations: [Encounter for supervision of normal , unspecified, unspecified trimester] 03-08-2024 Episodic Other upper respiratory disease (1 source) Nasal [...] Translations: [DIZZINESS AND GIDDINESS] Onset: 12-01-2021 Episodic Other aftercare (1 source) Other halfway (current) drug therapy; Translations: [OTH GROUP HOME CURRENT DRUG THERAPY] Onset: 01-24-2022 Episodic Other aftercare (1 source) prison (current) use of oral hypoglycemic drugs; 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] Onset: 12-22-2021 Episodic [...] [UTI SITE NOT SPECIFIED] Onset: 08-23-2021 Episodic NEGATED: Highlighted row has been ruled out!Unclassified (1 source) No known active problems 06-29-2023 Results Test Name Value Interpretation Reference Range Facility HCG ( test) Ql (U)o n 03-08-2024 Interpretation and review of laboratory results Abnormal [facility] Preg Test, Ur Positive Negative [facility] care [facility] Urinalysis macro (dipstick) panel (U)on 03-08-2024 Bilirubin, UA Negative Negative - 4(70) +++ mg/dL [facility] Blood, UA Negative Negative - 50 Duane/mcL [facility] Clarity, UA [facility] re Color, UA Yellow [facility] Glucose, UA Negative Negative - 1999(110) ++++ mg/dL [facility] Interpretation and review of laboratory results Abnormal [facility] Ketones, UA Negative Negative - 160(16) ++++ mg/dL [facility] Leukocytes, UA Moderate Negative - 500+++ Belinda/mcL [facility] Nitrite, UA Negative Negative - Positive [facility] pH, UA 7 5 - 9 [facility] e Protein, UA Negative Negative - 1999(20) ++++ mg/dL [facility] Spec Grav, UA 1.015 1 - 1.03 [facility] Urobilinogen, UA 0.2 0.2 - 12 mg/dL [facility] Ref[facility] Office[facility] 3 Referrals Office [id number] 8#[id number]:127 Normal [place] CULTURE URINEon 03-13-2022 CULTURE URINE Culture Observations: HEAVY GROWTH OF MIXED GENITAL TING. NO POTENTIAL PATHOGENS SEEN. Normal [facility] Comment on above: Performed By: #### C MP #### [facility] [address] [place] [address] Dr. Paz Burk ER URINE PROFILEon 3 Bilirubin Ql (U) Negative Normal NEGATIVE [facility] Comment on above: Performed By: #### P PEGGY HERNANDEZ ERUR #### [facility] [address] [place] [address] Dr. Paz Burk Clarity (U) CLEAR Normal CLEAR [facility] Comment on above: Performed By: #### P PEGGY HERNANDEZ ERUR #### [facility] [address] [place] [address] Dr. Paz Burk Color (U) LT. YELLOW Normal YELLOW [facility] Comment on above: Performed By: #### P REGU, UMICRO, ERUR #### [facility] [address] [address] [address] Paz POST A micrscopic examination will be performed if indicated. Normal [facility] Comment on above: Performed By: #### P REGU, UMICRO, ERUR #### [facility] [address] [address] [address] Paz Burk Glucose Ql (U) Negative Normal NEGATIVE [facility] Comment on above: Performed By: #### P REGU, UMICRO, ERUR #### [facility] [address] [address] [address] Paz Burk Hemoglobin Ql (U) Negative Normal NEGATIVE [facility] Comment on above: Performed By: #### P REGU, UMICRO, ERUR #### [facility] [address] [address] [address] Paz Burk Ketones Ql (U) Negative Normal NEGATIVE [facility] Comment on above: Performed By: #### P REGU, UMICRO, ERUR #### [facility] [address] [address] [address] Paz Burk LEUKOCYTES MODERATE Abnormal NEGATIVE [facility] Comment on above: Performed By: #### P REGU, UMICRO, ERUR #### [facility] [address] [address] [address] Paz Burk Nitrite Ql (U) Negative Normal NEGATIVE [facility] Comment on above: Performed By: #### P REGU, UMICRO, ERUR #### [facility] [address] [address] [address] Paz Burk pH (U) 6.0 [pH] Normal 5-9 [facility] Comment on above: Performed By: #### P REGU, UMICRO, ERUR #### [facility] [address] [address] [address] Paz Burk SPEC GRAVITY 1.025 Normal 1.005-<=1.025 [facility] Comment on above: Performed By: #### P REGU, UMICRO, ERUR #### [facility] [address] [place] [address] Dr. Paz Burk UA PROTEIN Negative Normal NEGATIVE/ TRACE [facility] Comment on above: Performed By: #### P REGU, UMICRO, ERUR #### [facility] [address] [place] [address] Dr. Paz Burk UR MICRO IND INDICATED Normal [facility] Comment on above: Performed By: #### P REGU, UMICRO, ERUR #### [facility] [address] [place] [address] Dr. Paz Burk Urobilinogen Qn (U) 0.2 {Ara'U}/dL Normal 0.2 - 1. 0 [facility] Comment on above: Performed By: #### P REGU UMICRO, ERUR #### [facility] [address] [place] [address] Dr. Paz Burk URon 03-13-2022 , QUAL Negative Normal NEGATIVE [facility] Comment on above: Performed By: #### P REGU UMICRO, ERUR #### [facility] [address] [place] [address] Dr. Paz Burk URINE MICROSCOPIC ONLYon BACTERIA MODERATE Abnormal NONE SEEN [facility] Comment on above: Performed By: #### P REGU UMICRO, ERUR #### [facility] [address] [place] [address] Dr. Paz Burk Bacteria identified Cx Nom (U) INDICATED Normal [facility] Comment on above: Performed By: #### P REGU, UMICRO, ERUR #### [facility] [address] [place] [address] Dr. Paz Burk CAST NONE SEEN Normal NONE SEEN [facility] Comment on above: Performed By: #### P REGU, UMICRO, ERUR #### [facility] [address] [place] [address] Dr. Paz Burk Crystals LM Nom (Urine sed) NONE SEEN Normal NONE SEEN [facility] Comment on above: Performed By: #### P REGUVERONICAICRO, ERUR #### [facility] [address] [place] [address] Dr. Paz Burk Epithelial cells LM Ql (Urine sed) MODERATE Abnormal NONE SEEN /RARE [facility] Comment on above: Performed By: #### P REGU UMICRO, ERUR #### [facility] [address] [place] [address] Dr. Paz Burk MUCOUS TRACE Abnormal NONE SEEN [facility] Comment on above: Performed By: #### P REGUVERONICAICRO, ERUR #### [facility] [address] [place] [address] Dr. Paz Burk RBC 0-2 Normal 0-2 [facility] Comment on above: Performed By: #### P REGU, VERONICAICRO, ERUR #### [facility] [address] [place] [address] Dr. Paz Burk WBC 50-75 Abnormal NONE SEEN [facility] Comment on above: Performed By: #### P REGU, VERONICAICRO, ERUR #### [facility] [address] [place] [address] Dr. Paz Burk Coding Summary.on 03-04-2022 Coding Summary. CD:[id number] Gh0bWw+PGhlYWQ+PE1FV NYjR28jmKHkaF0RK8uIC E3NIPRFDNYJJS6DOZ0rv OD2JEqaY5JczzUw DklitDEqAB47BXi2FFC1 dByxDVproX8tcETlJ0i7 XcDlIU03kT08AHwiDONa LcT5EjNvxsgxeCMh K9daPhRpySQzHsj+PHRh YmxlIHdpZHRoPScxMDAl UcLaxNzfFJ1kIq9jUVAp LWNvbGxhcHNlOiBj d9ciCJPpVKwdBK4tfGpr R2WaxDD1TMOnk5n1Rq62 dHI+EJDaTMP9pQhrGOsx c729NqBka0ogNUC8 aYKgKMdiZEL0B32ml8I3 BWRcHVYzNXZ9wDY4wU9v gRrprljeC9JrjDYlBvP7 TUZ8kUGqcZ4taZfw wnupfC1kLfz+L64KLZ9C FRFUBB3TLmg5U3IsNxjp dHI+LD51DZPcIC90oMTv mPRtz0lvgEp1YzIx DMIhFQL0eGasNGvyq3Dz MHTsZ51gjCLld1G6VKXw jUyckISiTvVhgGS8eT4h WMddliavh5bihzho Vtuvj4txye53jP61P01m QBiaTMUbFHO7PONtFWNz fYevvl7nwM7uYs9+IDxj h1spn2frrHj8AxLj LGYqmwGkkHndSKT0u4Pc If00B5WhgKsff3MlYmy9 wk28qKWqv5F1bFZ2LWej ZMKxiO1hWVvjMhC6 WLMwQtOhyB55yZKpUNaa Ay6ywLkstCbtXN3rYBKi oowtZPBcsX3gSISteYLn zPxgVG5kSFBlmhzo w197PtIhAAM5DMUftYLz S4AdsY2mEoAsDKYkXNTw N1EdvIOrWHjrZ906APwk FiD0TKMrrkZeE1Hh CIMnbRbkPtM8t9R4Ns7T p8WxsumjUHQ2EWceHJJl UdY6LbZpCsI1Y2RxUac3 NLHcvFvtUP8tF1Zk RRQasuppvaxslSY1LUCe SJQifQ58kHUmPLqvYi6w f6W7f158XQEmJDHsbQ06 Pu1sxAxoRMBvsCEP sY4yqcoir0ychkmsHhQv SGOjPUn0HSf4ZMKdxLej KgXsMQT9WaK6QSB0eGZh qH9xbWdtnoixcD6b Oyc+M67btX9lTJM2NQW2 vmrwSPSkwjKuEU04QJ13 W8TmRkefuQJuqYG+PGRp kvXhbQpoFY1kUcLg y9vhj3UyQEvaI1EjJMAp CHqaGyf9TPYeVVM8sVI4 sQ8lFBRaXMsob9A2eIT7 S7WqmzRcjd3dy4uu UDXfKNvzP65mpBBnk9V4 MDGdzEV5PQFrgPomVmJl pD71Efz+NIMfcZygl1Rw Ijiot2drm7nmgNs8 IjMwJSIgdmFsaWduPSJ0 u3YpRr89M05xBMkaPYTa SLLgWCMpVZXroCwila0h fV2oQj7+PGNvbCB3 hPW3cW3xPEIeYbH3KRzo X998ZzNjbQWtIztii1cs g4dthPo7OlKuYWNuhrOd mWloVQR0u3PbIt08 D25vFZvrXAJqPZJvVHXh PXAmuUvlqq9mcD3pYv5+ XS0ww5vetl94mE97fDM+ YZYhKIA0pTodUEsk QOGwoC3xRBrvZhD9MFIy XaRwbU31tXGoCMlgTm6w cJoolRedDY7pNJRylaru d815GgIzf0pfIUZg iJVaJZtiSJQ6K41ng9Y0 UHAbKSUoOBH0sKR6dH6h bGlnbjogbGVmdDsgdmVy yMfwBZarVPpzK744 IHRvcDsnPlBhdGllbnQg XyJwUEy1Q9DyCyf8BXFm gSdkEJ4gsOHhPKfoOd6h fJcywMphAB0dMJCl epdkq219KtQgd9hkAXJs vAKhDWzgRLH9J53rq7N6 TNLrCXOrRQR8pZE8qU6u bGlnbjogbGVmdDsg xaLlyVklIKsaDHzlL134 IHRvcDsnPkJpcnRoIERh uXB7OF35CP41dJNim1A4 fBR7Y7AoVRVrsdmj lvlieQH3KIDwPCIhsL39 Pl0xgIcsSw6fGTEcZFI4 LSSqyPIkI8WpaQ0pEuHf EPQqYMSfA0ZsuSNu HUgiM638FGtsRjG2FDMc ocYbB3NkEZFktDbzZxV8 f9F0Yi6DS5E0BQ76JK23 rFIva0Q3cOA2A8Dy VXWeymlfbjncwES7VJKd PLIumW77Bz3amPwaYb7z RPBxVNG2EVTlgURzJ3Oe iV1uQnUnEPGsYTWu Q6MnfBXxNEctP350NVht OrP7YYSwluJmC7VuBYRf qKvnAtW5z8W6Xl2OOMz7 YW98ON74tXWya4S5 eUR0C2LbVOQkddoqgkzo eTK2FQBrLPGecZ47Wp1x tUktVj6dJKYvQNT8FTPj gWRcA8DsjH9fAwJh GHZqMPSyJ4GlnHSeYOpn X618SAocLuT0RNVojsHn C0GxRMXvkJiyDyQ4z0Y2 Vu5JYMDwSX23MTX5 bKG5TL38FG81R1ZaRjap dGFibGU+PHRhYmxlIHdp ZHRoPScxMDAlJyBzdHls VF4cMy3lJLJuDOVn eIlzuMOiIgCum4qeUKKi FIswFY9fsKhjP9XlaIB1 NTQnv4r6Hc52E08pT9Kk dXA+AHWbwRF5vZC1 tS4yDySoFsT2WYjjZ005 WsCeyQCeCcgzm0cth3mk fIs5GmX6XXCwqgWzxOok LVN0k1RvKw42S82s IHdpZHRoPSIxNSUiIHZh gYvqjc4xeI9xLp1+PGNv aCN5qMM4vB7yXyTdRfO1 KQlkZ310IfDsfKJe Kjgeu9upy3zlzFn3RqVi LAVqloEhkKlqXUV4u6Da Um92K3OqsRcyz4WpOcg9 gr27vDLyq8Q1dHU4 I5WyBRDusoikiQCcuHno LW5fXBEikcmrFBIflZ4m FGWbJ6w0LmGsMsL7IXdh V5LmbpG2XYBgoXIy VVjkKOS7V13xw8S1IKLz ZUSxGWW8dYP4kI2udKik bjogbGVmdDsgdmVydGlj QJisXHyjX761QXEw vCryKNTkdR3zFLYyjLEz yOtlJS4aDCEalhifUxAD YW4sKVnKJb3OOjZfBhwe dGQ+VGPeKHB8gHlx UWngBFYqhX2qUSEoC1z4 PoGdLrM2WTjoX7NhTHBf dpouRb62pY4dJkHsUiM1 MRgvD4YdfhQ7OVBy oEEiBKpbBTI9C60oi8M1 GVSsFUOqIAK4bZZ6bC9h bGlnbjogbGVmdDsgdmVy tRrvADrkWOnyQ641 UXBxmHzkHcT0LmP4AlV6 MJy0F9GnVxd6BCOmuGsd IB7fxBKpPRqdSq6dyVxx lEszMM4oQHVtwpkt AODqnK8uHNWjhIUtmJce PW7oBHMgaxylt721JoHx FUV1YURqkUJcR6TrxY4w WyXbBFNvZYUtW9Wl hMWbYSucO227ZQsmTvL3 HDNfbuBoC6QrGNXhhQgu NsT5r1J6Ie4pWcGYVSXs czwvdGQ+PHRkIHN0 sHefPEeoVGYjlZ6tAURv K3b9AxXrRqF7UOmgP7Uf GYWqrkliFh31eD7nMkTm IwJ1DRzlE6RmkmZ5 BPXqvFHnAKvxARX4C49p l9X5POUyLLOhECR8mHA5 wY0yzZmamqrtpBXiaPrl dmVydGljYWwtYWxp E699HRLzuDeaPkGjuTVm ZTwvdGQ+SWVqLII7xFok ZUsjLSGkpB2bYNMvD6a9 KbTbFdX8VQohY9Mr DCUhaayyLi92nT6cFqYk SbN7VXheW4XlpeZ4GDAv lHZwBNpwIOC7M81fn3T1 PEDjCRNfKIT3mBP5 uB3gzIoueekhoGPncNdq azWgaMdiYFisQMutF127 WPLhjIxqEo06zIPulPpm gnG7I4XcYsjcwWH+ KF19CQCbOC28dPZlwVDr s8lajXx0EoYsFWImJHV4 nEmlQZfnh4NmIXTrK47d vOEij8S4QXXheOdu jFVlSpJkmOP5gB5dVBsl btvaj0mmlgpnCfnry4tw sb06aU09C38uQSqpJUNe PSIzMCUiIHZhbGln mi1jpM4dAr6+PGNvbCB3 uZV9iT6bNyIsOiD9LNgk Z418UnGzvLKjQxyyx7pa z4yaaUf8TfPaVPWx lkNvaXilHKP5d5WnUc04 N44iBImbBCPbMUEySEUz VLWejBtzrc9mhO4xYo6+ XE6wi6bywq88wR02 dHI+EWVtTPW3aVdzQOxe ZIGvgI1sYSnvKkQ0ZPNi WdVemB13fERhXOefEq1c dRbfcDubVX1oCHNx qllpf583VeOpd4jbRTYb mRWcRTfsOVV2E06yz9G9 CMAxJCFyPGV6wLK8sT8g bGlnbjogbGVmdDsg muIfaBjtEWzhDOciO137 TPKsdSptBrLkjUVoS4gd wtLZXL8jQsbwyIN+PHRk AHV5lMgtDHmkOGNp aC4tDIThG6e6HoBcTiD7 KCoeM5TfzyB7IKZpkPFk JPRglJADpK9zvrpiw5er cjogIzAwMDAwMDt0 FZw1ZSBrsBdbVrOwVTN9 QxA6HKF5bUOsoR6dbDfy gludbI3bUcr+RklOOjwv dGQ+GUMbBYW9eFbz CJjlGVFboX6pNKViA7c6 YbOtDfT0TRqiI0HirmV0 WCVusTOvAFEldRDBoG4q nilzv7auxaopTmZr VVAnICu1JLp2OFXbpBon DgDdEYN4HlT7RTG1uMEb lS0pqDdbulnrkD7tOwx+ TVJOOjwvdGQ+PHRk IOF1xHeaPPjhGDElaJ6g AVPpJ9c0TsOjQiU0NDdd Y4UhpqA7ZQCckYYbXXBa fYOHkI2yzngwb6up bgbxOdDvSUTzPEc4LKa5 UWCzoOycRwMrKBB4NvD7 LAG9tAKayO3enHdisbiv zX7qRnl+EYD6OGX2 DQ46ZU95P6CqXkdhdQXc bGU+PHRhYmxlIHdpZHRo BXquPPIxCvYwiHhlGF6m Oo0dWMXzXZBthZbg cHNl (more content not included)... Normal [place] Consent for Treatmenton Consent for Treatment [id number] #1.00CD:127 Normal [place] Covid-19 PCR (CVDTB)on 2 SARS-CoV-2 (COVID-19) RNA IGNACIO+probe Ql (Unsp spec) Not detected Normal NOT DETECTED [facility] Comment on above: Result Comment: This test is not yet approved or cleared by the [place] FDA. When there are no FDA-approved or cleared tests available, and other criteria are met, FDA can make tests available under an emergency access mechanism called an Emergency Use Authorization (EUA). The EUA for this test is supported by the [place] of Health and Human Service's (HHS's) declaration [...] consistent with SARS-CoV-2. Performed By: #### C VDTBH #### [facility] [address] [place] [address] Dr. Paz Burk INFLUENZA A AND B AGon 02-23 [facility] SEE BELOW Normal [facility] Comment on above: Result Comment: Nega tive for Flu A protein angiten. Infection due to Flu A cannot be ruled out. Flu A angiten in the sample may be below the detection limit of the test. Performed By: #### I NFLUAB #### [facility] [address] [place] [address] Dr. [facility]az [facility] Normal [facility] Comment on above: Result Comment: Nega tive for Flu B protein antigen. Infection due to Flu B cannot be ruled out. Flu B antigen in the sample may be below the detection limit of the test. Performed By: #### I NFLUAB #### [facility] [address] [place] [address] Dr. Paz Burk INFLUENZA A AG Negative Normal NEGATIVE SEE COMMENT [facility] Comment on above: Performed By: #### I NFLUAB #### [facility] [address] [place] [address] Dr. Paz Burk INFLUENZA B AG Negative Normal NEGATIVE SEE COMMENT [facility] Comment on above: Performed By: #### I NFLUAB #### [facility] [address] [place] [address] Dr. Paz Burk Physician Orderon 02-14-2022 Physician Order [id number] #1.00CD:127 Normal [place] BNPon 01-20-2022 Natriuretic peptide B (Bld) [Mass/Vol] 125.0 pg/mL Normal <=450.0 [facility] Comment on above: Performed By: #### C VDTBH #### [facility] [address] [place] [address] Dr. Paz Burk CBC AUTO DIFFon 01-20-2022 BASO # 0.0 103/ul Normal 0.0-0.1 [facility] Comment on above: Performed By: #### C BC #### [facility] [address] [place] [address] Dr. Paz Burk Basophils/100 WBC (Bld) 0.2 % Normal 0.2-2.0 [facility] Comment on above: Performed By: #### C BC #### [facility] [address] [place] [address] Dr. Paz Burk EO # 0.2 103/ul Normal 0.0-0.7 [facility] Comment on above: Performed By: #### C BC #### [facility] [address] [place] [address] Dr. Paz Burk Eosinophils/100 WBC (Bld) 1.2 % Normal 0.9-7.0 [facility] Comment on above: Performed By: #### C BC #### [facility] [address] [place] [address] Dr. Paz Burk Erythrocyte distribution width (RBC) [Ratio] 14.4 % Normal 11.0-15.0 [facility] Comment on above: Performed By: #### C BC #### [facility] [address] [place] [address] Dr. Paz Burk Hematocrit (Bld) [Volume fraction] 37.3 % Normal 36.0-48.0 [facility] Comment on above: Performed By: #### C BC #### [facility] [address] [address] [address] Paz Burk Hemoglobin (Bld) [Mass/Vol] 12.3 g/dL Normal 12.0-16.0 [facility] Comment on above: Performed By: #### C BC #### [facility] [address] [address] [address] Paz Burk IG # 0.07 10e3/ul Critically high 0.00-0.03 [facility] Comment on above: Performed By: #### C BC #### [facility] [address] [address] [address] Paz Burk IG % 0.5 % Normal 0.0-0.5 [facility] Comment on above: Performed By: #### C BC #### [facility] [address] [address] [address] Paz Burk LYMPH # 3.0 103/ul Normal 1.2-3.8 [facility] Comment on above: Performed By: #### C BC #### [facility] [address] [address] [address] Paz Burk Lymphocytes/100 WBC (Bld) 21.2 % Normal 20.5-60.0 [facility] Comment on above: Performed By: #### C BC #### [facility] [address] [place] [address] Dr. Paz Burk MANUAL DIFF REQ NO Normal [facility] Comment on above: Performed By: #### C BC #### [facility] [address] [address] [address] Paz Burk MCH (RBC) [Entitic mass] 26.8 pg Normal 26.7-34.0 [facility] Comment on above: Performed By: #### C BC #### [facility] [address] [address] [address] Paz Burk MCHC (RBC) [Mass/Vol] 33.0 g/dL Normal 29.9-35.2 [facility] Comment on above: Performed By: #### C BC #### [facility] [address] [address] [address] Paz Burk MCV (RBC) [Entitic vol] 81.3 fL Normal 81.0-99.0 [facility] Comment on above: Performed By: #### C BC #### [facility] [address] [address] [address] Paz Burk MONO # 0.7 103/ul Normal 0.3-0.8 [facility] Comment on above: Performed By: #### C BC #### [facility] [address] [address] [address] Paz Burk Monocytes/100 WBC (Bld) 4.8 % Normal 1.7-12.0 [facility] Comment on above: Performed By: #### C BC #### [facility] [address] [place] [address] Dr. Paz Burk NEUT # 10.3 103/ul Critically high 1.4-6.5 [facility] Comment on above: Performed By: #### C BC #### [facility] [address] [place] [address] Dr. Paz Burk Neutrophils/100 WBC (Bld) 72.1 % Normal 43.0-75.0 [facility] Comment on above: Performed By: #### C BC #### [facility] [address] [place] [address] Dr. Paz Burk Platelet mean volume (Bld) [Entitic vol] 11.2 fL Normal 9.5-13.5 [facility] Comment on above: Performed By: #### C BC #### [facility] [address] [place] [address] Dr. Paz Burk PLT 277 103/ul Normal 150-450 [facility] Comment on above: Performed By: #### C BC #### [facility] [address] [place] [address] Dr. Paz Burk RBC 4.59 106/ul Normal 4.20-5.40 [facility] Comment on above: Performed By: #### C BC #### [facility] [address] [place], [place] [address] Dr. Paz Burk WBC 14.3 103/ul Critically high 4.0-11.0 [facility] [place] [facility] Comment on above: Performed By: #### C #### [facility] [address] [place], [place] [address] Dr. Paz Burk CTA CHEST WO W [...] LUIS DONATO Date: 2022-01-20 03:10 Normal [facility] Covid-19 PCR (CVDTB)on 12-29 SARS-CoV-2 (COVID-19) RNA IGNACIO+probe Ql (Unsp spec) Not detected Normal NOT DETECTED [facility] Comment on above: Result Comment: When [...] for this test is supported by the [place] of Health and Human Service's declaration that [...] used). Performed By: #### C VDTBH #### [facility] [address] [place] [address] Dr. Paz Burk D-DIMERon 01-20-2022 D-DIMER 0.40 mg/L FEU Normal <=0.[address] [facility] Comment on above: Performed By: #### C MP #### [facility] [address] [place] [address] Dr. Paz Burk D-DIMER COMMENTS SEE BELOW Normal [facility] [place] [facility] Comment on above: Result Comment: Incr [...] hospitalization. Performed By: #### C MP #### [facility] [address] [place] [address] Dr. Paz Burk PREG HCG QUALon 01-20-2022 , QUAL Negative Normal NEGATIVE [facility] Comment on above: Performed By: #### C MP #### [facility] [address] [place] [address] Dr. Paz Burk PROF 14(COMP METB)on 022 Albumin [Mass/Vol] 3.3 g/dL Critically low 3.4-5.0 [facility] Comment on above: Performed By: #### C VDTBH #### [facility] [address] [place] [address] Dr. Paz Burk Albumin/Globulin [Mass ratio] 0.8 {ratio} Normal [facility] Comment on above: Performed By: #### C VDTBH #### [facility] [address] [place] [address] Dr. Paz Burk ALP [Catalytic activity/Vol] 95 U/L Normal 46-116 [facility] Comment on above: Performed By: #### C VDTBH #### [facility] [address] [place] [address] Dr. Paz Burk ALT [Catalytic activity/Vol] 15 U/L Normal 14-59 [facility] Comment on above: Performed By: #### C VDTBH #### [facility] [address] [place] [address] Dr. Paz Burk Anion gap [Moles/Vol] 10.4 mmol/L Normal [facility] Comment on above: Performed By: #### C VDTBH #### [facility] [address] [place] [address] Dr. Paz Burk AST [Catalytic activity/Vol] 10 U/L Critically low 15-37 [facility] Comment on above: Performed By: #### C VDTBH #### [facility] [address] [place] [address] Dr. Paz Burk Bilirubin [Mass/Vol] 0.1 mg/dL Critically low 0.2-1.0 [facility] Comment on above: Performed By: #### C VDTBH #### [facility] [address] [place] [address] Dr. Paz Burk Calcium [Mass/Vol] 8.8 mg/dL Normal 8.5-10.1 [facility] Comment on above: Performed By: #### C VDTBH #### [facility] [address] [place] [address] Dr. Paz Burk Chloride [Moles/Vol] 105 mmol/L Normal 98-107 [facility] Comment on above: Performed By: #### C VDTBH #### [facility] [address] [place] [address] Dr. Paz Burk CO2 [Moles/Vol] 25.3 mmol/L Normal 21.0-32.0 [facility] Comment on above: Performed By: #### C VDTBH #### [facility] [address] [address] [address] Paz Burk Creatinine [Mass/Vol] 0.83 mg/dL Normal 0.55-1.02 [facility] Comment on above: Performed By: #### C VDTBH #### [facility] [address] [place] [address] Dr. Paz Burk EGFR-AF MOSOTHO >60 Normal >=60 [facility] Comment on above: Performed By: #### C VDTBH #### [facility] [address] [address] [address] Paz Burk EGFR-NON AF MOSOTHO >60 Normal >=60 [facility] Comment on above: Performed By: #### C VDTBH #### [facility] [address] [place] [address] Dr. Paz Burk Globulin (S) [Mass/Vol] 4.1 g/dL Normal [facility] Comment on above: Performed By: #### C VDTBH #### [facility] [address] [place] [address] Dr. Paz Burk Glucose [Mass/Vol] 102 mg/dL Normal 74-106 [facility] Comment on above: Performed By: #### C VDTBH #### [facility] [address] [address] [address] Paz Burk Potassium [Moles/Vol] 3.7 mmol/L Normal 3.5-5.1 [facility] Comment on above: Performed By: #### C VDTBH #### [facility] [address] [place] [address] Dr. Paz Burk Protein [Mass/Vol] 7.4 g/dL Normal 6.4-8.2 [facility] Comment on above: Performed By: #### C VDTBH #### [facility] [address] [place] [address] Dr. Paz Burk Sodium [Moles/Vol] 137 mmol/L Normal 136-145 [facility] Comment on above: Performed By: #### C VDTBH #### [facility] [address] [place] [address] Dr. Paz Burk Urea nitrogen [Mass/Vol] 11.0 mg/dL Normal 7.0-18.0 [facility] Comment on above: Performed By: #### C VDTBH #### [facility] [address] [place] [address] Dr. Paz Burk Urea nitrogen/Creatinine [Mass ratio] 13.3 mg/mg Normal [facility] Comment on above: Performed By: #### C VDTBH #### [facility] [address] [place] [address] Dr. Paz Burk TROPONIN, HIGH SENSITIVITYon 01-20-2022 HSTROP 4.2 pg/mL Normal 4.0-51.3 [facility] Comment on above: Result Comment: CUT- OFF POINTS HAVE BEEN ESTABLISHED BASED ON THE FOURTH UNIVERSAL DEFINITIONS OF MYOCARDIAL INFARCTION. THE UPPER REFERENCE LIMIT (URL) OF TROPONIN, DEFINED THE 99TH PERCENTILE OF cTnI DISTRIBUTION IN A REFERENCE POPULATION, HAS BEEN CONFIRMED THE DECISION THRESHOLD FOR CO DIAGNOSIS. Performed By: #### C MP #### [facility] [address] [place] [address] Dr. Paz Burk HSTROP <4.0 Normal 4.0-51.3 [facility] Comment on above: Result Comment: CUT- OFF POINTS HAVE BEEN ESTABLISHED BASED ON THE FOURTH UNIVERSAL DEFINITIONS OF MYOCARDIAL INFARCTION. THE UPPER REFERENCE LIMIT (URL) OF TROPONIN, DEFINED THE 99TH PERCENTILE OF cTnI DISTRIBUTION IN A REFERENCE POPULATION, HAS BEEN CONFIRMED THE DECISION THRESHOLD FOR CO DIAGNOSIS. Performed By: #### C VDTBH #### [facility] [address] [place] [address] Dr. Paz Burk XR CHEST 1 Von [...] Cornel QUIÑONES Date: 2022-01-19 23:43 Normal [facility] CBC AUTO DIFFon 12-21-2021 BASO # 0.0 103/ul Normal 0.0-0.1 [facility] Comment on above: Performed By: #### C VDTBH #### [facility] [address] [place] [address] Dr. Paz Burk Basophils/100 WBC (Bld) 0.3 % Normal 0.2-2.0 [facility] Comment on above: Performed By: #### C VDTBH #### [facility] [address] [place] [address] Dr. Paz Burk EO # 0.2 103/ul Normal 0.0-0.7 [facility] Comment on above: Performed By: #### C VDTBH #### [facility] [address] [place] [address] Dr. Paz Burk Eosinophils/100 WBC (Bld) 1.2 % Normal 0.9-7.0 [facility] Comment on above: Performed By: #### C VDTBH #### [facility] [address] [place] [address] Dr. Paz Burk Erythrocyte distribution width (RBC) [Ratio] 14.4 % Normal 11.0-15.0 [facility] Comment on above: Performed By: #### C VDTBH #### [facility] [address] [place] [address] Dr. Paz Burk Hematocrit (Bld) [Volume fraction] 37.7 % Normal 36.0-48.0 [facility] Comment on above: Performed By: #### C VDTBH #### [facility] [address] [place] [address] Dr. Paz Burk Hemoglobin (Bld) [Mass/Vol] 12.0 g/dL Normal 12.0-16.0 [facility] Comment on above: Performed By: #### C VDTBH #### [facility] [address] [address] [address] Paz Burk IG # 0.06 10e3/ul Critically high 0.00-0.03 [facility] Comment on above: Performed By: #### C VDTBH #### [facility] [address] [address] [address] Paz Burk IG % 0.4 % Normal 0.0-0.5 [facility] Comment on above: Performed By: #### C VDTBH #### [facility] [address] [place] [address] Dr. Paz Burk LYMPH # 3.1 103/ul Normal 1.2-3.8 [facility] Comment on above: Performed By: #### C VDTBH #### [facility] [address] [address] [address] Paz Burk Lymphocytes/100 WBC (Bld) 21.8 % Normal 20.5-60.0 [facility] Comment on above: Performed By: #### C VDTBH #### [facility] [address] [place] [address] Dr. Paz Burk MANUAL DIFF REQ NO Normal [facility] Comment on above: Performed By: #### C VDTBH #### [facility] [address] [address] [address] Paz Burk MCH (RBC) [Entitic mass] 26.1 pg Critically low 26.7-34.0 [facility] Comment on above: Performed By: #### C VDTBH #### [facility] [address] [address] [address] Paz Burk MCHC (RBC) [Mass/Vol] 31.8 g/dL Normal 29.9-35.2 [facility] Comment on above: Performed By: #### C VDTBH #### [facility] [address] [address] [address] Paz Burk MCV (RBC) [Entitic vol] 82.0 fL Normal 81.0-99.0 [facility] Comment on above: Performed By: #### C VDTBH #### [facility] [address] [place] [address] Dr. Paz Burk MONO # 0.8 103/ul Normal 0.3-0.8 [facility] Comment on above: Performed By: #### C VDTB #### [facility] [address] [place] [address] Dr. Paz Burk Monocytes/100 WBC (Bld) 5.9 % Normal 1.7-12.0 [facility] Comment on above: Performed By: #### C VDTBH #### [facility] [address] [place] [address] Dr. Paz Burk NEUT # 10.0 103/ul Critically high 1.4-6.5 [facility] Comment on above: Performed By: #### C VDTB #### [facility] [address] [place] [address] Dr. Paz Burk Neutrophils/100 WBC (Bld) 70.4 % Normal 43.0-75.0 [facility] Comment on above: Performed By: #### C VDTBH #### [facility] [address] [place] [address] Dr. Paz Burk Platelet mean volume (Bld) [Entitic vol] 11.0 fL Normal 9.5-13.5 [facility] Comment on above: Performed By: #### C VDTBH #### [facility] [address] [place] [address] Dr. Paz Burk PLT 308 103/ul Normal 150-450 [facility] Comment on above: Performed By: #### C VDTBH #### [facility] [address] [place] [address] Dr. Paz Burk RBC 4.60 106/ul Normal 4.20-5.40 [facility] Comment on above: Performed By: #### C VDTBH #### [facility] [address] [place] [address] Dr. Paz Burk WBC 14.2 103/ul Critically high 4.0-11.0 [facility] Comment on above: Performed By: #### C VDTB #### [facility] [address] [place] [address] Dr. Paz Burk PROF 14(COMP METB)on 022 Albumin [Mass/Vol] 3.4 g/dL Normal 3.4-5.0 [facility] Comment on above: Performed By: #### C MP #### [facility] [address] [place] [address] Dr. Paz Burk Albumin/Globulin [Mass ratio] 0.8 {ratio} Normal [facility] Comment on above: Performed By: #### C MP #### [facility] [address] [place] [address] Dr. Paz Burk ALP [Catalytic activity/Vol] 86 U/L Normal 46-116 [facility] Comment on above: Performed By: #### C MP #### [facility] [address] [place] [address] Dr. Paz Burk ALT [Catalytic activity/Vol] 26 U/L Normal 14-59 [facility] Comment on above: Performed By: #### C MP #### [facility] [address] [place] [address] Dr. Paz Burk Anion gap [Moles/Vol] 14.6 mmol/L Normal [facility] Comment on above: Performed By: #### C MP #### [facility] [address] [place] [address] Dr. Paz Burk AST [Catalytic activity/Vol] 15 U/L Normal 15-37 [facility] Comment on above: Performed By: #### C MP #### [facility] [address] [place] [address] Dr. Paz Burk Bilirubin [Mass/Vol] 0.2 mg/dL Normal 0.2-1.0 [facility] Comment on above: Performed By: #### C MP #### [facility] [address] [place] [address] Dr. Paz Burk Calcium [Mass/Vol] 8.5 mg/dL Normal 8.5-10.1 [facility] Comment on above: Performed By: #### C MP #### [facility] [address] [place] [address] Dr. Paz Burk Chloride [Moles/Vol] 104 mmol/L Normal 98-107 [facility] Comment on above: Performed By: #### C MP #### [facility] [address] [address] [address] Paz Burk CO2 [Moles/Vol] 26.5 mmol/L Normal 21.0-32.0 [facility] Comment on above: Performed By: #### C MP #### [facility] [address] [place] [address] Dr. Paz Burk Creatinine [Mass/Vol] 0.88 mg/dL Normal 0.55-1.02 [facility] Comment on above: Performed By: #### C MP #### [facility] [address] [place] [address] Dr. Paz Burk EGFR-AF MOSOTHO >60 Normal >=60 [facility] Comment on above: Performed By: #### C MP #### [facility] [address] [place] [address] Dr. Paz Burk EGFR-NON AF MOSOTHO >60 Normal >=60 [facility] Comment on above: Performed By: #### C MP #### [facility] [address] [place] [address] Dr. Paz Burk Globulin (S) [Mass/Vol] 4.4 g/dL Normal [facility] Comment on above: Performed By: #### C MP #### [facility] [address] [address] [address] Paz Burk Glucose [Mass/Vol] 116 mg/dL Critically high 74-106 [facility] Comment on above: Performed By: #### C MP #### [facility] [address] [place] [address] Dr. Paz Burk Potassium [Moles/Vol] 3.1 mmol/L Critically low 3.5-5.1 [facility] Comment on above: Performed By: #### C MP #### [facility] [address] [address] [address] Paz Burk Protein [Mass/Vol] 7.8 g/dL Normal 6.4-8.2 [facility] Comment on above: Performed By: #### C MP #### [facility] [address] [address] [address] Paz Burk Sodium [Moles/Vol] 142 mmol/L Normal 136-145 [facility] Comment on above: Performed By: #### C MP #### [facility] [address] [address] [address] Paz Burk Urea nitrogen [Mass/Vol] 8.0 mg/dL Normal 7.0-18.0 [facility] Comment on above: Performed By: #### C MP #### [facility] [address] [place] [address] Dr. Paz Burk Urea nitrogen/Creatinine [Mass ratio] 9.1 mg/mg Normal [facility] Comment on above: Performed By: #### C MP #### [facility] [address] [place] [address] Dr. Paz Burk PROTIMEon 12-21-2021 INR Coag (PPP) [Relative time] 1.05 {INR} Normal [facility] Comment on above: Performed By: #### P TT, PT #### [facility] [address] [place] [address] Dr. Paz Burk INR GUIDELINES SEE BELOW Normal [facility] Comment on above: Result Comment: NANO RED INR: 2.0 - 3.0 CONDITIONS NOT LISTED BELOW 2.5 - 3.5 FOR PROSTHETIC HEART VALVE REPLACEMENT 2.5 - 3.5 RECURRENT THROMBOSIS Performed By: #### P TT, PT #### [facility] [address] [place] [address] Dr. Paz Burk PT Coag (PPP) [Time] 11.3 s Normal 9.0-11.6 [facility] Comment on above: Performed By: #### P TT, PT #### [facility] [address] [place] [address] Dr. Paz Burk PTTon 12-21-2021 aPTT Coag (Bld) [Time] 32.5 s Normal 22.3-36.2 [facility] Comment on above: Performed By: #### P TT, PT #### [facility] [address] [place] [address] Dr. Paz Burk BLOOD GASES BTYon 11-29-2021 02 MODE ROOM AIR Normal [facility] Comment on above: Performed By: #### C VDTBH #### [facility] [address] [place] [address] Dr. Paz Burk ALLENS TEST Positive [facility] Comment on above: Performed By: #### C VDTBH #### [facility] [address] [place] [address] Dr. Paz Burk Base excess Calc (Bld) [Moles/Vol] 0.7 mmol/L Normal -2.0-2.0 [facility] Comment on above: Performed By: #### C VDTBH #### [facility] [address] [place] [address] Dr. Paz Burk BIPAP PRESSURE [facility] Comment on above: Performed By: #### C VDTBH #### [facility] [address] [place] [address] Dr. Paz Burk CPAP [facility] Comment on above: Performed By: #### C VDTBH #### [facility] [address] [place] [address] Dr. Paz Burk FIO2 [facility] Comment on above: Performed By: #### C VDTBH #### [facility] [address] [place] [address] Dr. Paz Burk HCO3 (Bld) [Moles/Vol] 25.3 mmol/L Normal 22.0-26.0 [facility] Comment on above: Performed By: #### C VDTBH #### [facility] [address] [place] [address] Dr. Paz Burk LPM [facility] Comment on above: Performed By: #### C VDTBH #### [facility] [address] [address] [address] Paz Burk MINUTE VOLUME Normal [facility] Comment on above: Performed By: #### C VDTBH #### [facility] [address] [place] [address] Dr. Paz Burk Oxygen (Bld) [Partial pressure] 96.1 mm[Hg] Normal 80.0-100.0 [facility] Comment on above: Performed By: #### C VDTBH #### [facility] [address] [place] [address] Dr. Paz Burk Oxygen saturation in Blood 99.0 % Normal 95.0-100.0 [facility] Comment on above: Performed By: #### C VDTBH #### [facility] [address] [place] [address] Dr. Paz Burk PCO2 35.8 mmHg Normal 35.0-45.0 [facility] Comment on above: Performed By: #### C VDTBH #### [facility] [address] [place] [address] Dr. Paz Burk PEEP [facility] Comment on above: Performed By: #### C VDTBH #### [facility] [address] [place] [address] Dr. Paz Burk pH (Bld) 7.448 [pH] Normal 7.350-7.450 [facility] Comment on above: Performed By: #### C VDTBH #### [facility] [address] [place] [address] Dr. Paz Burk PIP [facility] Comment on above: Performed By: #### C VDTBH #### [facility] [address] [place] [address] Dr. Paz Burk PS [facility] Comment on above: Performed By: #### C VDTBH #### [facility] [address] [place] [address] Dr. Paz Burk PUNCTURE SITE RR [facility] Comment on above: Performed By: #### C VDTBH #### [facility] [address] [place] [address] Dr. Paz Burk RATE Normal [facility] Comment on above: Performed By: #### C VDTBH #### [facility] [address] [place] [address] Dr. Paz Burk VENT MODE [facility] Comment on above: Performed By: #### C VDTBH #### [facility] [address] [place] [address] Dr. Paz Burk [facility] Comment on above: Performed By: #### C VDTBH #### [facility] [address] [place] [address] Dr. Paz Burk CULTURE URINEon 08-21-2021 CULTURE URINE Culture Observations: MODERATE GROWTH OF MIXED GENITAL TING. NO POTENTIAL PATHOGENS SEEN. Normal [facility] Comment on above: Performed By: #### C MP #### [facility] [address] [place] [address] Dr. Paz Burk ER URINE PROFILEon 2 Bilirubin Ql (U) Negative Normal NEGATIVE [facility] Comment on above: Performed By: #### C MP #### [facility] [address] [place] [address] Dr. Paz Burk Clarity (U) CLEAR Normal CLEAR [facility] Comment on above: Performed By: #### C MP #### [facility] [address] [place] [address] Dr. Paz Burk Color (U) LT. YELLOW Normal YELLOW [facility] Comment on above: Performed By: #### C MP #### [facility] [address] [place] [address] Dr. Paz Burk ERUAHD A micrscopic examination will be performed if indicated. [facility] Comment on above: Performed By: #### C MP #### [facility] [address] [place] [address] Dr. Paz Burk Glucose Ql (U) Negative Normal NEGATIVE [facility] Comment on above: Performed By: #### C MP #### [facility] [address] [place] [address] Dr. Paz Burk Hemoglobin Ql (U) Negative Normal NEGATIVE [facility] Comment on above: Performed By: #### C MP #### [facility] [address] [place] [address] Dr. Paz Burk Ketones Ql (U) Negative Normal NEGATIVE [facility] Comment on above: Performed By: #### C MP #### [facility] [address] [place] [address] Dr. Paz Burk LEUKOCYTES LARGE Abnormal NEGATIVE [facility] Comment on above: Performed By: #### C MP #### [facility] [address] [place] [address] Dr. Paz Burk Nitrite Ql (U) Negative Normal NEGATIVE [facility] Comment on above: Performed By: #### C MP #### [facility] [address] [place] [address] Dr. Paz Burk pH (U) 7.5 [pH] Normal 5-9 [facility] Comment on above: Performed By: #### C MP #### [facility] [address] [place] [address] Dr. Paz Burk SPEC GRAVITY 1.020 Normal 1.005-<=1.025 [facility] Comment on above: Performed By: #### C MP #### [facility] [address] [place] [address] Dr. Paz Burk UA PROTEIN Negative Normal NEGATIVE/ TRACE [facility] Comment on above: Performed By: #### C MP #### [facility] [address] [place] [address] Dr. Paz Burk UR MICRO IND INDICATED Normal [facility] Comment on above: Performed By: #### C MP #### [facility] [address] [place] [address] Dr. Paz Burk Urobilinogen Qn (U) 0.2 {Ara'U}/dL Normal 0.2 - 1. 0 [facility] Comment on above: Performed By: #### C MP #### [facility] [address] [place] [address] Dr. Paz Burk URon 08-21-2021 , QUAL Negative Normal NEGATIVE [facility] Comment on above: Performed By: #### C MP #### [facility] [address] [place] [address] Dr. Paz Burk URINE MICROSCOPIC ONLYon BACTERIA SMALL Abnormal NONE SEEN [facility] Comment on above: Performed By: #### C MP #### [facility] [address] [place] [address] Dr. Paz Burk Bacteria identified Cx Nom (U) INDICATED Normal [facility] Comment on above: Performed By: #### C MP #### [facility] [address] [place] [address] Dr. Paz Burk CAST NONE SEEN Normal NONE SEEN [facility] Comment on above: Performed By: #### C MP #### [facility] [address] [place] [address] Dr. Paz Burk Crystals LM Nom (Urine sed) NONE SEEN Normal NONE SEEN [facility] Comment on above: Performed By: #### C MP #### [facility] [address] [place] [address] Dr. Paz Burk Epithelial cells LM Ql (Urine sed) FEW Abnormal NONE SEEN /RARE [facility] Comment on above: Performed By: #### C MP #### [facility] [address] [place] [address] Dr. Paz Burk MUCOUS NONE SEEN Normal NONE SEEN [facility] Comment on above: Performed By: #### C MP #### [facility] [address] [place] [address] Dr. Paz Burk RBC NONE SEEN Abnormal 0-2 [facility] Comment on above: Performed By: #### C MP #### [facility] [address] [place] [address] Dr. Paz Burk WBC 5-10 Abnormal NONE SEEN [facility] Comment on above: Performed By: #### C MP #### [facility] [address] [place] [address] Dr. Paz Burk Vital Signs Date Time Vital Sign Value Performing Clinician Facility 03-08-2024 09:24-0500 Body mass index (BMI) [Ratio] 45.1 kg/m2 [facility] Nurse [facility] 03-08-2024 09:240500 Body weight 126.73 kg [facility] Nurse [facility] 03-08-2024 09:24-0500 Diastolic blood pressure 70 mm[Hg] [facility] Nurse [facility] 03-08-2024 09:24-0500 Systolic blood pressure 110 mm[Hg] [facility] Nurse [facility] 06-29-2020 09:02-0400 Body height 167.64 cm Edith Ford Work Phone: [facility] 06-29-2020 09:02-0400 Body mass index (BMI) [Ratio] 48.2 kg/m2 Edith Ford Work Phone: [facility] 06-29-2020 09:02-0400 Body temperature 97.8 [degF] Edith Ford Work Phone: [facility] 06-29-2020 09:02-0400 Body weight 135.65 kg Edith Ford Work Phone: [facility] 06-29-2020 09:02-0400 Diastolic blood pressure 73 mm[Hg] Edith Ford Work Phone: [facility] 06-29-2020 09:02-0400 Heart rate 69 /min Edith Ford Work Phone: [facility] 06-29-2020 09:02-0400 Respiratory rate 16 /min Edith Ford Work Phone: [facility] 06-29-2020 09:02-0400 SaO2% (BldA) [Mass fraction] 98 % Edith Ford Work Phone: [facility] 06-29-2020 09:02-0400 Systolic blood pressure 130 mm[Hg] Edith Ford Work Phone: [facility] Encounters Encounter Date Encounter Type Care Provider Facility Start: 03-08-2024 End: 03-08-2024 Office outpatient visit 5 minutes [facility] Nurse [facility] Comment on above: [place]: [id number] Start: 03-08-2024 End: 03-08-2024 ambulatory WALKER BLUM Not Available Start: 06-29-2023 End: 06-30-2023 ambulatory WALKER BLUM Not Available Start: 05-08-2022 End: 05-08-[address] DOCTOR ROWAN Facility:[facility] Start: 03-13-2022 End: 03-13-[address] KATHLEEN MISC Facility:[facility] Start: 03-03-2022 End: 03-04-2022 ambulatory Neal Garcia [place] [place]: 03-03-2022 End: 03-03-2022 Patient encounter procedure Edith Ford [facility] Start: 02-23-2022 End: 02-24-[address] KATHLEEN MISC Facility:[facility] Start: 01-20-2022 End: 01-20-2022 ambulatory DOCTOR MISC Facility:[facility] Start: 12-21-2021 End: 12-21-2021 ambulatory DOCTOR MISC Facility:[facility] Start: 11-29-2021 End: 11-29-[address] KATHLEEN MISC Facility:[facility] Start: 08-21-2021 End: 08-21-2021 ambulatory DOCTOR MISC Facility:[facility] Start: 06-29-2020 End: 06-29-2020 Emergency department patient visit Edith Ford Work Phone: [facility] Procedures Date Procedure Procedure Detail Performing Clinician Start: 03-08-2024 Urnls dip stick/tabl et rgnt non-auto w/o micrscp Dhruv Jorje DO Work Phone: Appendectomy Edith Bello n History of tympanostomy tubes in ears Pola Ford Tubes in Ears Edith Cho on Plan of Treatment Date Care Activity Detail Author Start: 04-08-2024 End: 04-08-2024 Patient encounter procedure 04/08/2024 9:20 AM EST Routine [facility] [address] [place] [id number] Dhruv Recinos DO [address] [address] [facility] Start: 03-08-2024 End: 03-08-2025 ABO/Rh ABO/Rh Lab Routine Missed menses , unspecified gestational age Expected: 03/08/2024 (Approximate), Expires: 03/08/2025 [facility] Comment on above: Expected: 03/08/2024 (Approximate), Expires: 03/08/2025 Start: 03-08-2024 End: 03-08-2025 Blood type and Indirect antibody screen panel - Blood Type and screen Lab Routine Missed menses , unspecified gestational age Expected: 03/08/2024 (Approximate), Expires: 03/08/2025 [facility] Work Phone: Comment on above: Expected: 03/08/2024 (Approximate), Expires: 03/08/2025 Start: 03-08-2024 End: 03-08-2025 Drugs of abuse panel - Urine by Screen method Rapid drug screen, urine Lab Routine , unspecified gestational age Encounter for supervision of normal first in first trimester Expected: 03/08/2024 (Approximate), Expires: 03/08/2025 [facility] Comment on above: Expected: 03/08/2024 (Approximate), Expires: 03/08/2025 Bacteria identified in Urine by Culture Urine culture Microbiology Routine Missed menses Ordered: 03/08/2024 [facility] Comment on above: Ordered: 03/08/2024 CBC W Auto Different ial panel - Blood CBC and differential Lab Routine Missed menses , unspecified gestational age Ordered: 03/08/2024 [facility] Comment on above: Ordered: 03/08/2024 Hemoglobin A1c/Hemoglobin.total in Blood Hemoglobin A1c Lab Routine Missed menses , unspecified gestational age Ordered: 03/08/2024 [facility] Comment on above: Ordered: 03/08/2024 Hepatitis B virus surface Ag [Presence] in Serum or Plasma by Immunoassay Hepatitis B surface antigen Lab Routine Missed menses , unspecified gestational age Ordered: 03/08/2024 [facility] Comment on above: Ordered: 03/08/2024 Hepatitis C virus Ab [Presence] in Serum or Plasma by Immunoassay Hepatitis C antibody Lab Routine Missed menses , unspecified gestational age Ordered: 03/08/2024 [facility] Comment on above: Ordered: 03/08/2024 HIV-1/HIV-2 antigen/antibody combination immunoassay HIV-1 and HIV-2 antibodies Lab Routine Missed menses , unspecified gestational age Ordered: 03/08/2024 [facility] Comment on above: Ordered: 03/08/2024 Patient Education Muscle Strain (ED) [facility] Patient referral [facility] Reagin Ab [Presence] in Serum by RPR RPR Lab Routine Missed menses , unspecified gestational age Ordered: 03/08/2024 [facility] Comment on above: Ordered: 03/08/2024 Rubella antibody, IgG Rubella an tibody, IgG Lab Routine Missed menses , unspecified gestational age Ordered: 03/08/2024 [facility] Comment on above: Ordered: 03/08/2024 Payers Date Payer Category Payer Private Health Insurance [facility] [id number] 1998 Unknown [id number]. 727 1998 Unknown [id number] 2.16.840.1.947403.3.579.2. 593 1998 Unknown [id number] 2.16.840.1.013976.3.579.2. 593 1998 Unknown [id number] 2.16.840.1.798695.3.579.2. 593 1998 Unknown [id number] 2.16.840.1.335264.3.579.2. 593 1998 Unknown [id number] 2.16.840.1.425514.3.579.2. 593 1998 Unknown [id number] 2.16.840.1.331562.3.579.2. 593 1998 Unknown [id number] 2.16.840.1.977115.3.579.2. 593 1998 Unknown [id number] 2.16.840.1.995831.3.579.2. 1259 1998 Unknown [id number] 2.16.840.1.703726.3.579.2. 1259 1998 Unknown [id number] 2.16.840.1.300752.3.579.2. 1259 1959 Unknown [id number] 1959 Unknown [id number] Self-pay Self Pay [id number] Social History Date Type Detail Facility Start: 06-29-2020 End: 06-29-2023 Tobacco smoking status [facility] Never smoked tobacco (finding) [facility] Start: 2000 Sex Assigned At Female F [facility] Tobacco Household tobacc o concerns: Yes. [facility] Tobacco smoking status No Smoking Status Entered [facility] Start: 03-08-2024 Sex Assigned At Female F [facility] Start: 06-29-2023 Tobacco use and exposure Smokeless tobacco non-user [facility] Start: 03-08-2024 Alcoholic beverage intake Lifetime non-drinker (finding) [facility] Start: 03-08-2024 History of Social function [facility] Start: 01-17-2024 [facility] Start: 2000 Sex assigned at Not on file [facility] NEGATED: Highlighted rowStart: NINF History of tobacco use Passive smoker [facility] Goals Date Patient Goal Desired Activity /State History of Present illness Narrative 03-08-2024 Mackenzie Davison LPN - 03/08/2024 9:00 AM EST Note Date & Type Note Facility 03-08-2024 History of Presen t illness Narrative Reason for Appointment: Patient ID: Juan Diego Fulton is a 23 y.o. female who presents for Amenorrhea Patient presents today for a Nurse OB Intake appointment. Patient is 9w2d with a Estimated Date of Delivery: 10/09/24 OB History Para Term AB Living 1 SAB IAB Ectopic Multiple Live Births # Outcome Date GA Lbr Fab/2nd Weight Sex Type Anes PTL Lv 1 Current Current Medications: currently has no medications in their medication list. Medical History: Active Ambulatory Problems Diagnosis Date Noted No Active Ambulatory Problems Resolved Ambulatory Problems Diagnosis Date Noted No Resolved Ambulatory Problems Past Medical History: Diagnosis Date Abnormal uterine bleeding Irregular periods Oligomenorrhea PCOS (polycystic ovarian syndrome) Weight gain Family History Problem Relation Name Age of Onset Mental illness Mother Diabetes Father Heart disease Father Heart disease Maternal Grandmother Diabetes Maternal Grandmother Diabetes Maternal Grandfather Mental illness Paternal Grandmother Social History Tobacco Use Smoking status: Never Passive exposure: Never Smokeless tobacco: Never Vaping Use Vaping status: Unknown Substance Use Topics Alcohol use: Never Drug use: Defer Past Surgical History: Procedure Laterality Date APPENDECTOMY TYMPANOSTOMY TUBE PLACEMENT Allergies Allergen Reactions Sumatriptan Shortness of breath Theophyllines Hives and Rash Vitals: Estimated body mass index is 45.1 kg/m as calculated from the following: Height as of 06/02/22: 5' 6 . Weight as of this encounter: 279 lb 6.4 oz. BP: 110/70 Patient's last menstrual period was 01/03/2024. Assessment/Plan Diagnoses and all orders for this visit: Missed menses - Type and screen; Future - ABO/Rh; Future - CBC and differential - Hemoglobin A1c - RPR - Rubella antibody, IgG - Hepatitis B surface antigen - Hepatitis C antibody - HIV-1 and HIV-2 antibodies - Urine culture - POCT , urine manually resulted - POCT urinalysis dipstick manually resulted , unspecified gestational age - Type and screen; Future - ABO/Rh; Future - CBC and differential - Hemoglobin A1c - RPR - Rubella antibody, IgG - Hepatitis B surface antigen - Hepatitis C antibody - HIV-1 and HIV-2 antibodies - Rapid drug screen, urine; Future Encounter for supervision of normal first in first trimester - Rapid drug screen, urine; Future Nurse Note: OB Intake: Patient presents today for first OB visit. Patients history has been reviewed in great detail including any potential risks. Patient signed consent forms and patient desires testing in both trimesters. Patient currently has no complaints and has been advised to drink 6-8 glasses of water a day, eat no raw or undercooked meat, and [facility]. Patient has also been advised to not change litter boxes and eat 6 small meals a day. Patient has been consulted regarding the do's and don'ts of . Patient was given labs and all questions and concerns were answered. Patient was given script for vitamins and Zofran. Patient given [place]oner to do at 10 weeks. Follow Up: Patient is to return in 4 weeks for routine OB appointment. Follow Up: Patient is to have labs drawn at directed and return to office for initial OB appointment with provider. Patient may call office as needed with any concerns or questions. Nurse Visit Completed by: Mackenzie Davison LPN documented in this encounter [facility] Clinical Note 03-03-2022 Note Date & Type Note Facility 03-03-2022 Note Echocardiology Procedure Exam Date/Time Accession # Ordering Dr. Noyola Transthoracic 03/03/2022 09:37 EST [id number] Edith Ford MD Complete CPT code [id number] Reason for Exam (Echo Transthoracic Complete) Cardiomegaly I51.[address] [address] Adult Echocardiogram Report Name: HAETHER JUAN DIEGO Heron Study Date: 03/03/2022 09:03 AM BP: 111/78 mmHg Patient Location: [facility] HR: 68 : 2000 Gender: Female Height: 66 in Age: 21 yrs Ethnicity: WHT Weight: 298 lb Reason For Study: Cardiomegaly I51.7 BSA: 2.4 m2 History: No cardiac history per patient Ordering Physician: Edith Ford Referring Physician: Edith Ford Performed By: Tara Lilly [facility] Interpretation Summary No comparison study is available. [...] V1 max P.4 mmHg MV A max grezgorz: 55.6 cm/sec MV dec slope: 429.6 cm/sec2 [...] Garcia MD Transcribed by: MATHEW Technologist: KEN [facility] Discharge instructions 06-29-2020 Note Date & [...] palpitations fever vomiting or any other concerns [facility] Evaluation + Plan note Note Date & Type Note Facility Evaluation + Plan note No data available for this section [facility] Evaluation note Note Date & Type Note Facility Evaluation note No Assessments Information Avail able [facility] Evaluation note Note Date & Type Note Facility Evaluation note Diagnosis Missed menses , unspecified gestational age Encounter for supervision of normal first in first trimester Nausea Nausea alone documented in this encounter [facility] Hospital Discharge instructions Note Date & Type Note Facility Hospital Discharge instructions No data available for this section [facility] Progress note Note Date & Type Note Facility Progress note No data available for this section [facility] Advance Directives No Advanced Directives Records Found Advance Directive Response Recorded Date/ Time Advance Directives No June 29, 2020 9:26am Chief Complaint and Reason for Visit Chief Complaint middle back pain Summary Purpose Family History No Family History Records FoundNo Family History Records FoundNo Family History Records Found Additional Source Comments Patient Care team informatio n (unrecognized section and content) 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 [facility] [employer] provides no warranty or guarantee of the accuracy or completeness of information in this document.
[2024-03-15 07:33] LABS: Basophils Percent Auto 0.3 % (0.2-2.0); Eosinophils Absolute Auto 0.1 10^3/uL (0.0-0.7); Eosinophils Percent Auto 0.9 % (0.9-7.0); Hematocrit 36.1 % (36.0-48.0); Hemoglobin 11.8 g/dL (12.0-16.0); Immature Granulocytes Abs Auto 0.05 10^3/uL (0.00-0.03); Immature Granulocytes Pct Auto 0.4 % (0.0-0.5); Lymphocytes Absolute Auto 2.6 10^3/uL (1.2-3.8); Lymphocytes Percent Auto 18.5 % (20.5-60.0); Mean Corpuscular HGB Conc 32.7 g/dL (29.9-35.2); Mean Corpuscular Hemoglobin 25.9 pg (26.7-34.0); Mean Corpuscular Volume 79.2 fL (81.0-99.0); Mean Platelet Volume 11.7 fL (9.5-13.5); Monocytes Absolute Auto 0.6 10^3/uL (0.3-0.8); Neutrophils Absolute Auto 10.7 10^3/uL (1.4-6.5); Neutrophils Percent Auto 75.9 % (43.0-75.0); Platelet Count 302 10^3/uL (150-450); Red Blood Count 4.56 10^6/uL (4.20-5.40); Red Cell Distribution Width 14.1 % (11.0-15.0); White Blood Count 14.1 10^3/uL (4.0-11.0)
[2024-03-15 07:35] LABS: Estimated Average Glucose 97 mg/dL
[2024-03-15 07:54] LABS: Amphetamine Screen Urine NEGATIVE (NEGATIVE); Barbiturates Screen Urine NEGATIVE (NEGATIVE); Benzodiazepines Screen Urine NEGATIVE (NEGATIVE); Buprenorphine Screen Urine NEGATIVE (NEGATIVE); Cannabinoid Screen Urine POSITIVE (NEGATIVE); Cocaine Screen Urine NEGATIVE (NEGATIVE); Methadone Screen Urine NEGATIVE (NEGATIVE); Methamphetamines Screen Urine NEGATIVE (NEGATIVE); Opiate Screen Urine NEGATIVE (NEGATIVE); Oxycodone Screen Urine NEGATIVE (NEGATIVE); Phencyclidine Screen Urine NEGATIVE (NEGATIVE); Tricyclic Antidepressant Urine NEGATIVE (NEGATIVE)
[2024-03-15 11:10] LABS: BOX Test Reference Lab UNITY
[2024-03-15 11:16] LABS: BOX Test Sent Out UNITY BOX
[2024-03-16 05:07] LABS: HCV Ab Non Reactive (Non Reactive); HIV Ab/p24 Ag Screen Non Reactive (Non Reactive); Rubella Antibodies, IgG <0.90 index (Immune >0.99)
[2024-03-16 06:08] LABS: HBsAg Screen Negative (Negative)
[2024-03-16 12:09] LABS: Rapid Plasma Reagin, Quant Non Reactive titer (NonRea<1:1)
[2024-03-21 15:07] LABS: Cannabinoid Positive (.); Carboxy THC Conf, MS, UR 52 ng/mL (Cutoff=10)
== END 2024-03-15 06:39 | disposition home or self-care (01) ==
PROVIDERS: PCP Family Medicine; Visit Provider Obstetrics & Gynecology
DX: Z34.01 Encounter for supervision of normal first pregnancy, first trimester (principal); Z36.0 Encounter for antenatal screening for chromosomal anomalies
CPT/HCPCS: 36415; 80307; 80349; 83036; 85025; 86592; 86762; 86803; 86850; 86870; 86900; 86901; 87086; 87340; 87389

== ENCOUNTER 2024-05-07 15:13 | Outpatient (REF) | payer OTHER, SELFPAY ==
[2024-05-14 13:08] LABS: Age Gdln ACOG Testing Note (.); IGP, rfx Aptima HPV ASCU Note (.)
== END 2024-05-07 15:14 | disposition home or self-care (01) ==
LOC: LAB 15:13
PROVIDERS: PCP Family Medicine; Visit Provider Physician Assistant
DX: Z01.419 Encounter for gynecological examination (general) (routine) without abnormal findings (principal)
CPT/HCPCS: 88175

== ENCOUNTER 2024-05-14 06:41 | Outpatient (OUT) | payer OTHER, SELFPAY ==
--- OUTSIDE RECORDS SUMMARY | 2024-05-14 06:45 | XMS_ITS | CCD ---
Author Organization [facility]iniSyne Care Team Providers Care Center Director Name Role Phone Edith Ford Primary Care [...] Admitting Unavailable EILEEN ., JOURDAN Attending Unavailable TALYA WOODARD Consulting Unavailable LOGAN, DR TEJADA Consulting Unavailable MISC, DR KATHLEEN Primary Care Unavailable EILEEN ., JOURDAN Admitting Unavailable EILEEN ., JOURDAN Attending Unavailable EILEEN ., JOURDAN Consulting Unavailable JULIETAC, DR KATHLEEN Primary Care Unavailable HAY ., DR MALLORY Consulting Unavailable MAHAMED ., DR MALLORY Admitting Unavailable MAHAMED ., DR MALLORY Attending Unavailable LOGAN, DR TEJADA Consulting Unavailable MISC, DR KATHLEEN Primary Care Unavailable HAY ., DR MALLORY Admitting Unavailable HAY ., DR MALLORY Attending Unavailable HAY ., DR MALLORY Consulting Unavailable MISC, DR KATHLEEN Primary Care Unavailable KHARI, DR [...] Unavailable Edith Ford MD Primary Care Provider Unavailable Primary Care Provider UnavailDEMETRIUS Davis Attending Unavailable TALYA WOODARD Attending Unavailable WALKER BLUM Attending Unavailable WALKER BLUM Referring Unavailable TALYA WOODARD Referring Unavailable SESAR HUGO Attending Unavailable TALYA WOODARD Referring Unavailable DEMETRIUS RECINOS R Referring Unavailable Allergies Allergy Classification Reported Allergen(s) Allergy Type Date of Onset Reaction(s) Facility Theophylline (1 source) Theophylline Drug Allergy 06-30-19 21 [facility] (11 sources) SUMAtriptan; Translations: [sumatriptan] Drug Allergy 08-15-19 17 Pharyngeal swelling (finding), Shortness of breath [facility] (6 sources) Theophylline; Translations: [theophylline] Drug Allergy 04-11-19 25 Hives, [facility] (1 source) Theophylline Drug Allergy 09-24-19 19 [facility] (5 sources) Theophyllines Drug Intolerance 09-29-19 11 Hivguillermo, Rash [facility] Medications Current Medications Medication Drug Class(es) Dates Sig (Normalized) Sig (Original) acetaminophen 500 mg oral tablet (2 sources) take 2 tablets by mouth every six hours as needed for pain acetaminophen (TYLENOL EXTRA STRENGTH) 500 mg tablet Take 2 tablets (1,000 mg total) by mouth every 6 (six) hours as needed for pain. 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 30 tablet 6 04/26/2024 11/22/2024 Active lidocaine 0.05 mg/mg medicated patch (1 source) Antiarrhythmic, Amide Local Anesthetic Start: 06-29-2020 apply 1 dose topically once daily Lidocaine Active 1 PATCH TOPICAL Daily June 29, 2020 9:12am leave on most painful area for up to 12 hrs 24 hr metFORMIN hydrochloride 500 mg extended release oral tablet (5 sources) Biguanide Start: 08-07-2023 End: 03-08-2024 take 1 tablet by mouth every twenty-four hours at mealtime metFORMIN XR (Glucophage-XR) 500 MG 24 hr tablet Indications: Encounter for weight management Take 1 tablet (500 mg) by mouth in the evening. Take with meals Do not crush, chew, or split. 30 tablet 2 10/31/2023 03/08/2024 Discontinued take 1 tablet by tess th once daily at breakfast metFORMIN XR (GLUCOPHAGE XR) 500 mg 24 h r tablet Take 1 tablet (500 mg total) by mouth daily with breakfast. Active naproxen 500 mg oral tablet (1 source) Nonsteroidal Anti-inflammatory Drug Start: 12-13-2018 take 1 tablet by mouth twice daily at mealtime Naprosyn 500 mg Tab 500 mg = 1 tab(s), Oral, BID, with food, # 60 tab(s), Refills(s) 0 Start Date: 12/13/18 Status: Ordered ondansetron 4 mg disintegrating oral tablet (5 sources) Serotonin-3 Receptor Antagonist Start: 03-08-2024 End: 04-07-2024 take 1 tablet by mouth every six hours as needed for nausea and vomiting and nausea and nausea ondansetron ODT (Zofran-ODT) 4 MG disintegrating tablet Indications: Nausea Take 1 tablet (4 mg) by mouth every 6 (six) hours if needed for nausea or vomiting 30 tablet 2 03/08/2024 04/07/2024 Active take 1 tablet by tess th every eight hours as needed for nausea and vomiting ondansetron ODT (ZOFRAN ODT) 4 mg disintegrating tablet Dissolve 1 tablet (4 mg total) on tongue every 8 (eight) hours as needed for nausea or vomiting. Active PNV cmb#95-ferrous fumarate-FA () 28 mg iron- 800 mcg tablet (3 sources) take 1 tablet by mouth in the morning PNV cmb#95-ferrous fumarate-FA () 28 mg iron- 800 mcg tablet Take 1 tablet by mouth in the morning. Active Vit-Fe Fumarate-FA ( Vitamins) 28-0.8 MG tablet (5 sources) Start: End: 026 take 1 tablet by mouth once daily Vit-Fe Fumarate-FA ( Vitamins) 28-0.8 MG tablet Indications: , unspecified gestational age , Encounter for supervision of normal first in first trimester Take 1 tablet by mouth Daily 30 tablet 11 03/08/2024 03/08/2025 Active sertraline 100 mg oral tablet (4 sources) Serotonin Reuptake Inhibitor Start: End: take 1 tablet by mouth once daily sertraline (Zoloft) 100 MG tablet Take 100 mg by mouth Daily 06/08/2023 03/08/2024 Discontinued Bactrim (1 source) Dihydrofolate Reductase Inhibitor Antibacterial, Sulfonamide Antimicrobial Start: take 80 mg by mouth every twelve [...] disorders (1 source) Bipolar disorder 12-25-2018 Chronic Mood disorders (1 source) Mood disorders; Translations: [Depression, unspecified] Onset: 04-26-2024 Nausea and vomiting (6 sources) Nausea; Translations: [Nausea with vomiting, unspecified] Onset: 08-21-2021 Episodic Nonspecific chest pain (5 sources) Other chest pain; Translations: [Chest pain, unspecified] Onset: 01-20-2022 Episodic Other and ill-defined heart disease (1 source) Cardiomegaly; Translations: [CARDIOMEGALY] Onset: 01-24-2022 Chronic Other complications of (1 source) 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 ; Translations: [Other mental disorders complicating , unspecified trimester] Onset: 04-26-2024 04-26-2024 Episodic Other complications of (1 source) Other mental disorders complicating , unspecified trimester; Translations: [Other mental disorders complicating , unspecified trimester] Onset: 04-26-2024 Episodic Other ear and sense organ disorders (3 [...] 03-15-2022 Chronic Other and delivery including normal (10 sources) ; Translations: [Encounter for supervision of normal , unspecified, unspecified trimester] Onset: 04-26-2024 03-08-2024 Episodic Other screening for suspected conditions (not mental disorders or infectious disease) (1 source) Encounter for other specified screening; Translations: [Encounter for other specified screening] Onset: 04-26-2024 Episodic Other upper respiratory disease (1 source) Nasal congestion; Translations: [NASAL CONGESTION] Onset: 02-25-2022 Episodic Other upper respiratory infections (1 source) Acute upper respiratory infection, unspecified; Translations: [ACUTE UP RESPIRATORY INFECTION UNS] Onset: 02-25-2022 Episodic Otitis media and related conditions (1 source) Otitis media, unspecified, right ear; Translations: [OTITIS MEDIA UNSPECIFIED RIGHT EAR] Onset: 05-09-2022 Episodic Residual codes; unclassified (2 sources) Gestation period, 13 weeks; Translations: [13 weeks gestation of ] 04-09-2024 Episodic Residual codes; unclassified (2 sources) Gestation period, 16 weeks; Translations: [16 weeks gestation of ] 04-26-2024 Episodic Residual codes; unclassified (1 source) 16 weeks gestation of ; Translations: [16 weeks gestation of ] Onset: 04-26-2024 Episodic Spondylosis; intervertebral disc disorders; other back [...] [CONTACT W/AND (SUSP) EXPOS COVID-19] Onset: 02-25-2022 Unclassified (1 source) mono-di twins Onset: 04-26-2024 Past or Other Problems Problem Classification Problem Date Documented Da te Episodic/Chronic Conditions associated with dizziness or vertigo (1 source) Dizziness and giddiness; Translations: [DIZZINESS AND GIDDINESS] Onset: 12-01-2021 Episodic Other aftercare (1 source) Other custodial (current) drug therapy; Translations: [OTH CLAIMS VICE PRESIDENT CURRENT DRUG THERAPY] Onset: 01-24-2022 Episodic Other aftercare (1 source) rn long term care (current) use of oral hypoglycemic drugs; Translations: [CLAIMS VICE PRESIDENT USE ORAL HYPOGLYCEMIC DX] Onset: 12-22-2021 Episodic [...] NEGATED: Highlighted row has been ruled out!Unclassified (5 sources) No known active problems 06-29-2023 Results Test Name Value Interpretation Reference Range Facility Urinalysis macro (dipstick) panel (U)on 04-09-2024 Bilirubin, UA Negative Negative - 4(70) +++ mg/dL [facility] Blood, UA Negative Negative - 50 Duane/mcL [facility] Clarity, UA Clear [facility] re Color, UA Yellow [facility] e Glucose, UA Negative Negative - 1999(110) ++++ mg/dL [facility] Interpretation and review of laboratory results Abnormal [facility] Ketones, UA Negative Negative - 160(16) ++++ mg/dL [facility] Leukocytes, UA Positive Negative - 500+++ Belinda/mcL [facility] Comment on above: large Nitrite, UA Negative Negative - Positive [facility] pH, UA 7 5 - 9 [facility] Protein, UA Trace Negative - 1999(20) ++++ mg/dL [facility] Spec Grav, UA 1.02 1 - 1.03 [facility] Urobilinogen, UA 0.2 0.2 - 12 mg/dL [facility] ALL CBC WITH AUTO DIFFon BASOPHILS ABSOLUTE AUTO 0 [facility] Basophils/100 WBC (Bld) 0.3 % 0.2 - 2.0 % [facility] Eosinophils/100 WBC (Bld) 0.9 % 0.9 - 7.0 % [facility] Erythrocyte distribution width (RBC) [Ratio] 14.1 % 11.0 - 15.0 % [facility] IMMATURE GRANULOCYTES ABS AUTO 0.05 High [facility] Immature granulocytes/100 WBC (Bld) 0.4 % 0.0 - 0.5 % [facility] Interpretation and review of laboratory results Abnormal [facility] LYMPHOCYTES ABSOLUTE AUTO 2.6 [facility] Lymphocytes/100 WBC (Bld) 18.5 % Low 20.5 - 60.0 % [facility] MCH (RBC) [Entitic mass] 25.9 pg Low 26.7 - 34.0 pg [facility] MCHC (RBC) [Mass/Vol] 32.7 g/dL 29.9 - 35.2 g/dL [facility] MCV (RBC) [Entitic vol] 79.2 fL Low 81.0 - 99.0 fL [facility] MONOCYTES ABSOLUTE AUTO 0.6 [facility] Monocytes/100 WBC (Bld) 4 % 1.7 - 12.0 % [facility] NEUTROPHILS ABSOLUTE AUTO 10.7 High [facility] Neutrophils/100 WBC (Bld) 75.9 % High 43.0 - 75.0 % [facility] Platelet mean volume (Bld) [Entitic vol] 11.7 fL 9.5 - 13.5 fL [facility]H EO # 0.1 [facility] e TB PLT 302 [facility] e TB RBC 4.56 [facility] e TB WBC 14.1 High [facility] CBC without diffon Rbc Mcv (Fl) By Automated Count 79.2 [facility] Laboratory - Hematology and Cell countson 03-15-2024 Hematocrit (Bld) [Volume fraction] 36.1 % [facility] e Hemoglobin (Bld) [Mass/Vol] 11.8 g/dL [facility] No Panel Informationon 03-15 [facility] e Rubella IGG immune statuson 03-15-2024 Rubella immune IgG 0.9 [facility] Syphilis Total(Unknown Syphi lis Status)on 03-15-2024 Syphilis Non-Reactive [facility] Type and screenon 03-15-2024 Abo/Rh(D) Negative [facility] HCG ( test) Ql (U)o n 03-08-2024 Interpretation and review of laboratory results Abnormal [facility] Preg Test, Ur Positive Negative [facility] Urinalysis macro (dipstick) panel (U)on 03-08-2024 Bilirubin, UA Negative Negative - 4(70) +++ mg/dL [facility] Blood, UA Negative Negative - 50 Duane/mcL [facility] Clarity, UA Clear [facility] re Color, UA Yellow [facility] Glucose, UA Negative Negative - 1999(110) ++++ mg/dL [facility] Interpretation and review of laboratory results Abnormal [facility] Ketones, UA Negative Negative - 160(16) ++++ mg/dL [facility] Leukocytes, UA Moderate Negative - 500+++ Belinda/mcL [facility] Nitrite, UA Negative Negative - Positive [facility] pH, UA 7 5 - 9 [facility] e Protein, UA Negative Negative - 1999(20) ++++ mg/dL [facility] Spec Grav, UA 1.015 1 - 1.03 [facility] Urobilinogen, UA 0.2 0.2 - 12 mg/dL [facility] Referrals Officeon 3 Referrals Office [id number] 8#[id number]:[id number] [facility] CULTURE URINEon 03-13-2022 CULTURE URINE Culture Observations: HEAVY GROWTH OF MIXED GENITAL TING. NO POTENTIAL PATHOGENS SEEN. Normal [facility] Comment on above: Performed By: #### C MP #### [facility] [address] [place] [address] Dr. Paz Burk ER URINE PROFILEon 3 Bilirubin Ql (U) Negative Normal NEGATIVE [facility] Comment on above: Performed By: #### P PEGGY HERNANDEZ, ERUR #### [facility] [address] [address] [address] Paz Burk Clarity (U) CLEAR Normal CLEAR [facility] Comment on above: Performed By: #### P PEGGY HERNANDEZ, ERUR #### [facility] [address] [address] [address] Paz Burk Color (U) LT. YELLOW Normal YELLOW [facility] Comment on above: Performed By: #### P REGU, UMICRO, ERUR #### [facility] [address] [address] [address] Paz POST A micrscopic examination will be performed if indicated. Normal [facility] Comment on above: Performed By: #### P REGU, UMICRO, ERUR #### [facility] [address] [address] [address] Paz Burk Glucose Ql (U) Negative Normal NEGATIVE [facility] Comment on above: Performed By: #### P REGU, UMICRO, ERUR #### [facility] [address] [address] [address] Paz Burk Hemoglobin Ql (U) Negative Normal NEGATIVE [facility] Comment on above: Performed By: #### P REGU, UMICRO, ERUR #### [facility] [address] [address] [address] Paz Burk Ketones Ql (U) Negative Normal NEGATIVE [facility] Comment on above: Performed By: #### P REGU, UMICRO, ERUR #### [facility] [address] [address] [address] Paz Burk LEUKOCYTES MODERATE Abnormal NEGATIVE [facility] Comment on above: Performed By: #### P REGU, UMICRO, ERUR #### [facility] [address] [address] [address] Paz Burk Nitrite Ql (U) Negative Normal NEGATIVE [facility] Comment on above: Performed By: #### P REGU, UMICRO, ERUR #### [facility] [address] [address] [address] Paz Burk pH (U) 6.0 [pH] Normal 5-9 [facility] Comment on above: Performed By: #### P REGU, UMICRO, ERUR #### [facility] [address] [address] [address] Paz Burk SPEC GRAVITY 1.025 Normal 1.005-<=1.025 [facility] Comment on above: Performed By: #### P REGU, UMICRO, ERUR #### [facility] [address] [address] [address] Paz Burk UA PROTEIN Negative Normal NEGATIVE/ TRACE [facility] Comment on above: Performed By: #### P REGU, UMICRO, ERUR #### [facility] [address] [address] [address] Paz Burk UR MICRO IND INDICATED Normal [facility] Comment on above: Performed By: #### P REGU, UMICRO, ERUR #### [facility] [address] [address] [address] Paz Burk Urobilinogen Qn (U) 0.2 {Ara'U}/dL Normal 0.2 - 1. 0 [facility] Comment on above: Performed By: #### P REGU, UMICRO, ERUR #### [facility] [address] [place] [address] Dr. Paz Burk URon 03-13-2022 , QUAL Negative Normal NEGATIVE [facility] Comment on above: Performed By: #### P REGU, UMICRO, ERUR #### [facility] [address] [address] [address] Paz Burk URINE MICROSCOPIC ONLYon BACTERIA MODERATE Abnormal NONE SEEN [facility] Comment on above: Performed By: #### P REGU, UMICRO, ERUR #### [facility] [address] [place] [address] Dr. Paz Burk Bacteria identified Cx Nom (U) INDICATED Normal [facility] Comment on above: Performed By: #### P REGU, UMICRO, ERUR #### [facility] [address] [address] [address] Paz Burk CAST NONE SEEN Normal NONE SEEN [facility] Comment on above: Performed By: #### P REGU, UMICRO, ERUR #### [facility] [address] [address] [address] Paz Burk Crystals LM Nom (Urine sed) NONE SEEN Normal NONE SEEN [facility] Comment on above: Performed By: #### P PEGGY HERNANDEZ, ERUR #### [facility] [address] [address] [address] Paz Burk Epithelial cells LM Ql (Urine sed) MODERATE Abnormal NONE SEEN /RARE [facility] Comment on above: Performed By: #### P PEGGY HERNANDEZ, ERUR #### [facility] [address] [address] [address] Paz Burk MUCOUS TRACE Abnormal NONE SEEN [facility] Comment on above: Performed By: #### P BREANA HERNANDEZRO, ERUR #### [facility] [id number] Paz Burk RBC 0-2 Normal 0-2 [facility] Comment on above: Performed By: #### P PEGGY HERNANDEZ, ERUR #### [facility] [id number] Paz Burk WBC 50-75 Abnormal NONE SEEN [facility] Comment on above: Performed By: #### P PEGGY HERNANDEZ, ERUR #### [facility] [address] [address] [address] Paz Burk Coding Summary.on 03-04-2022 Coding Summary. CD:[id number] Gh0bWw+PGhlYWQ+PE1FV RMeV71jsCQuxD9RW3uBC B1SOEJQOQWQGF0ZGX7cv BY6PKntV3OvqyLo IlyhjGGjVM04HGo2SPL3 pShtPWqyaU0nuMTqM3t9 RsVlRM52lF30MMsbFYMv XlX7NfEgxrdorRFj Q0hyWfSuoVMmNvu+PHRh YmxlIHdpZHRoPScxMDAl ZbFfsYbfWT4jTe1oAIYv LWNvbGxhcHNlOiBj y2lpSORgCQrzUG4tdJjv G3NmiYN5QISpk6l1Vf68 dHI+FEYfHLY1hPkrTMif h271CqMdu1apTDN7 qDUaRUkhPUL1Y75st2N6 VVXrQQHwNRE0zMO5zO5c nChbnaeyN6FdtSMhRvV4 ZPX7oVSklL3ccRvp cntoiA9mLmz+G58YYN8X QUEPPG7TIlr4M4DcOrce dHI+UQ33CYBxBK70qHOc tDAht6exjSi7IzKe FTUjFBI7xJudXHgbc4Ez QTNkU76zeLTfo1G0BPHz jBgzxFJpEeFniFS7cN7g BRpcvxkcd9sljcmo Vxnqr3ljtp92tC56X55p MNgaWDEuOMK8HUNwWDFi aWbgyz4gxC6dQj2+IDxj c2qby5dcvYk6GoHr UCDcnwGkkWntVZP9t1Eu Yd13G3FwjRyay8MhLuw4 mt74fTSks8J6yXP7FCie RHSkqU8sGWixCwQ1 NMCdNsGdiB61eHLyEWxe Gy6amYzgpBssGE7gRDMj qqtcUOMklX9mEYAweNBz fAfdYA1hVGBxxbfw s509LgMhUUP1TXRzyLNi M8NinL9dGmUgMDPvXVIe C6IqjOIkZFtjK886LTqg BgQ9FGDuarIvL2Nr KSFncRgsUsY6j4P0Wn0G y9ZhqqaqPLW3AOfyDFKa XaN9DhFyBuE4W7LkPcz6 ZARdjLlnOR6hD5Uw ZHZcitbmqrzpjJW5ZLVq NTMihL08cZEhNEngPz0t c6Q2e303KBJjFGDnrH33 Jx8vxLnzTNIrlKUT xV7unzdom1ewsdaiIxPl XAPxCTt3KYw2DMSwfCbd NdXtNPP9MhO0EYQ5pWHy qS5zjUpaelbddD5l Oyc+A22soB2gMUK9RHT7 eikvJYVelfBnOG49RO58 X1SrWqwkgQJctOF+PGRp xpOwwIjiWA2lRzNr r4mfk4DcAIpbY4NgGJQp BUbpPlz6XBOjHHZ9bNA9 zC8qOQFdBHvwj1A2tPC1 Z3QtsfAqom3ol1ho ZLEhYXawJ65okCDob3W2 BAFjbUN9SVZgfQbnDpAk aW87Gwn+FOHkmAmif8Vk Lazih1uzg7yfhBq6 IjMwJSIgdmFsaWduPSJ0 p9HpJv25R42bUTfjRLBl XZBcARBxJHWzkIlopv4k tI6dXm2+PGNvbCB3 qCW9wQ6wDJZkYgZ6QCba Y887JjTygEZfVvwgc5rz p8jpeSm9TkBwVRHsaxId nFjcXFW9l5WkJu66 G66yQVotEVSwCCCsNCIy MWJvpJhwiy1suE6mWg5+ LB6dl4fafm51dD14pEQ+ RRLtCNI3eUynZEfy KHIxzK5qSCkyMcD7WHBh CfCbkR66bDMwIUymWs6m cDfqrVlqWH6tEICktxir x585XcKky4yyZNUl uKYkCDjuZIS8R28cg4U8 CQRoXMFlONT3mVS6nD9j bGlnbjogbGVmdDsgdmVy dTktOTcoGJgsK177 IHRvcDsnPlBhdGllbnQg ZgMtDBl9U5GzIic1JNHt lBrpBJ9nuMEpRQpyBg3h iImmmPceEP1zRZJi dzirg843BlOny1qaNLWf vLMjRRalZEU5I11iz4W9 CJNtTQCdOBM4hZD4eQ0o bGlnbjogbGVmdDsg qhGvuFcgBYkoJIctT215 IHRvcDsnPkJpcnRoIERh aPS0ST28JD29jNZss6C3 aDI3U5WcJQGhouyd mxprpYZ1BADhDRAzqE98 Cf5hlPiqFw4eHDJvDKQ4 RFRpbGHiN0BzpX1gOlLm QNGwGTEnL4GnpACq BLrlQ382GLyiKwX9VULz fvUkK8YzMGPswAijKbO1 j6O2Kq8MP8O4JL35WT88 bIXnf4W5fTA4S4Dz DMDiqgkjuuhpeQH3YLWn ZECemG70Na5pzEgpTt4v ZMQmOKP8ZILmkJJfJ5Pl sQ3wWnLwXCVyOJKx T3StbGJjRQtwG014QNoq KkM5MUIcgtPeN3XnSLRt dZrjIjL9k3O3Hd7NEVg0 BK26JQ61eSLgu3X5 fTU8Y0FxNZYdbfoyxjkn xRA1EBJiHYWzyU17Wg9s uRzeFk9wGUKuYQH4CEIp mCPjS5IkdO0tTvMa NHGbJVDrM6PrvSMxVTpc M591EKwwBeU4JMJtyoBg R2KzSHJygQqxAdF2u2B6 Kw9ORBDuXP57BHL2 gOE6DJ01LS43L0EgXweg dGFibGU+PHRhYmxlIHdp ZHRoPScxMDAlJyBzdHls MR8vCr8kLEIvTIXx mZiwlOZrNmEzx4cgONBa NLpvSU7nfSogQ5KpuLQ2 FPXqy5w6St16R55aB2Pb dXA+QZSilGB9qKE1 vM0bTlInVqH3HEeuW080 VjYvpDOwIbokq9gzd1ho qAm5GzR6ORIyyjNxmFun FMN9m4GxAo59Q29r IHdpZHRoPSIxNSUiIHZh cOpfsb2jcQ5tRi3+PGNv qYH9wAP0kQ8gJcKuQxH6 RLzhK847MdDevFCw Rbnts9qeq3ilaBr1EyKt YLIdflAmvZzuYQB8c8Iq Dg33O7JoePmac6UqYbh5 av50vNYfg7W4jGW3 Q1PiVTSxbyxagXWemCdk RK2yGJTkinesRCCjmF3k PSBbF1f5HoDgBmW1IQpt D5ZuwsY4TWHihEYy XHurNUZ6I24io2E9JRLl UCPoUIJ2nEE9nZ1szOao bjogbGVmdDsgdmVydGlj RFrgFBakU271YTWg gNadXPXegH6wJTRpgSWq vPlpPD6zLBWatpjkSpGG GW5mWHgAYm5SFjIwWwew dGQ+SOIbZLO7qDfz TPfaKOUvhY5kXYNmE2q9 FhUxYaU8FTyvY8ZyCAXw nkgoSd03tQ5pTxGgAmC4 MIjrV2ZhlaN6VXLl nDQlCAfqCEW8H15kq0R2 IALcHCUuAHK8sRK6uJ2g bGlnbjogbGVmdDsgdmVy gRmyVZxqRYnkS467 VATrqOnpEnV6JwI4UpU8 CIy5P7XpSxn4QEYofXxp AP3bcDPcMYywZj3tzIfl hAamTD1dJXEwbvnw WMXiuN2xIEAuvGAmxNgg XA1iJZXifgipa434UeOb ESM5EZVlbHTsC0RaoM0r WtVcKUNyOQSpL7Fy wJGnJNwtV508JUaiZgH3 OEUyloZmP2FfQMAkwHiw EgQ9k1Q5Fi5oNjOYLQDd czwvdGQ+PHRkIHN0 aZtqTIxjBERtuW7sVOHg Z4j0AcIxVxB1QLtnD7Bd GYMyfzhaCd06eP2vUqDh JtF7STniI7EpfeO6 JPIvfLPfHQawDYH9A74r e3H5WBIuWGUpWHM5fGS9 xJ0lcJorejswdBPllGwb dmVydGljYWwtYWxp Q242HDFjdNasWxUrxTNf ZTwvdGQ+FQDoTOP2aDuy THepDGKdsQ2cONIgZ5k7 DxPzOuG5GFwrJ3Kr QGXimpsrSo34oU4dUsKu FqC5XGajL2VltnV8CSKz pBPpWNjfTVF5E13xc9K8 GTUqOGKfXHL6fDA2 dP9wkMkrtysafNBwxHfw qeSefXqqDCwsCSdgY023 BMPzhJzsAm04pIDwmSkd etS7A2PfJflzfWV+ XM22NVCbKD25hKAcbWPr s0jypEc9DjRdIINuZMZ6 sDtzJLixa1BoGQUrX77u dJUvz9M2LZZitDpq wOQjEvChlDB4kV8gPUmk lzrbt4zrkzhhPudpc4xh wk17aA71V99sPAwoGNBk PSIzMCUiIHZhbGln kw4dyC1kWh7+PGNvbCB3 aCB3mW8nXeRwPwT9HNmb F467FxHogPYaLcfiv9hy z5ljlYe1WxGtTQPn ayHafNixTRM3e4BrKh37 T46kCVcwODRiYPYmMDUe INJitXpjnx9rzY6mFv5+ VR3ow4fyno95eR12 dHI+HMFqIQU1xWkzHNra DUFgxZ8hCVshOjX6SEVt PgBgiO16xDPlAMtfOp1u dFvydUxiEC1hDZLu bwtjx027CcKrd8weIZJm jJMnLRckTZE1B32xp8P3 OTQaZDQgVGW5cOY4sA8w bGlnbjogbGVmdDsg pcCkpJvbNJhcCIryK042 IKDsvXvkUhWhyIVpD7ar rjUDCU5qYeiyiGT+PHRk TOL4qJegECbxLINt eY4mEUQcR7h5SwPzQbQ0 AReiO5IpkcK4JOQknJGc QCJtmADZtK9crkepv2cu cjogIzAwMDAwMDt0 HUo2WRArxGecLwYuUGF7 GpL7VKL9rYQnaR9qtCnv npybpK4cTen+RklOOjwv dGQ+LUKbBMP1iFuz FMrdNKRnkD9lOCUtN2z3 MvRvHfO3JWsrA8WojkD8 BTVhiAWuURCvnNILmC3h aggmp3cxlfdaBxMi CYFvDQi4XMx6YNHjiLsf YfKfUDS3KdA5QQN1mREt vU0fcDtrulykjY7kSuo+ TVJOOjwvdGQ+PHRk TDY7wSajMGkgHCOfnY8s OXJcT1u8BzVaFeN8PAdj W2NmfdG8TBZcgKWdVWLl gCCPkU2zjjblc9hi qbyaMbDzIJRiYKe2LLx1 BVFxvMfuLoWyBVM2MyT7 NLM5bPCgmI7orZxpyeul gC2sYia+ODM6TIR7 DS56FC69W7QpHtxntMNq bGU+PHRhYmxlIHdpZHRo TVaoUMZqFfEgxXtgGS0r Cs2sMDGtOBQxgOlp cHNl (more content not included)... [facility] Consent for Treatmenton Consent for Treatment [id number] [facility] Covid-19 PCR (CVDTBH)on 01-28 SARS-CoV-2 (COVID-19) RNA IGNACIO+probe Ql (Unsp spec) Not detected Normal NOT DETECTED [facility] Comment on above: Result Comment: This test is not yet approved or cleared by the [place] FDA. When there are no FDA-approved or cleared tests available, and other criteria are met, FDA can make tests available under an emergency access mechanism called an Emergency Use Authorization (EUA). The EUA for this test is supported by the Program Eligibility Specialist of Health and Human Service's (HHS's) declaration [...] consistent with SARS-CoV-2. Performed By: #### C VDTB #### [facility] [address] [place] [address] Dr. Paz Burk INFLUENZA A AND B [facility] 02-23 [facility] SEE BELOW [facility] Comment on above: Result Comment: Nega tive for Flu A protein angiten. Infection due to Flu A cannot be ruled out. Flu A angiten in the sample may be below the detection limit of the test. Performed By: #### I NFLUAB #### [facility] [address] [place] [address] [facility] SEE BELOW [facility] Comment on above: Result Comment: Nega tive for Flu B protein antigen. Infection due to Flu B cannot be ruled out. Flu B antigen in the sample may be below the detection limit of the test. Performed By: #### I NFLUAB #### [facility] [address] [place] [address] Dr. Paz Burk INFLUENZA A AG Negative Normal NEGATIVE SEE COMMENT [facility] Comment on above: Performed By: #### I NFLUAB #### [facility] [address] [place] [address] Dr. Paz Burk INFLUENZA B AG Negative Normal NEGATIVE SEE COMMENT [facility] Comment on above: Performed By: #### I NFLUAB #### [facility] [address] [place] [address] Dr. Paz Burk Physician Orderon 02-14-2022 Physician Order [id number] [facility] BNPon 01-20-2022 Natriuretic peptide B (Bld) [Mass/Vol] 125.0 pg/mL Normal <=450.0 [facility] Comment on above: Performed By: #### C VDTB #### [facility] [address] [place] [address] Dr. Paz Burk CBC AUTO DIFFon 01-20-2022 BASO # 0.0 103/ul Normal 0.0-0.1 [facility] Comment on above: Performed By: #### C BC #### [facility] [address] [place] [address] Dr. Paz Burk Basophils/100 WBC (Bld) 0.2 % Normal 0.2-2.0 [facility] Comment on above: Performed By: #### C BC #### [facility] [address] [place] [address] Dr. Paz Burk EO # 0.2 103/ul Normal 0.0-0.7 [facility] Comment on above: Performed By: #### C BC #### [facility] [address] [place] [address] Dr. Paz Burk Eosinophils/100 WBC (Bld) 1.2 % Normal 0.9-7.0 [facility] Comment on above: Performed By: #### C BC #### [facility] [address] [place] [address] Dr. Paz Burk Erythrocyte distribution width (RBC) [Ratio] 14.4 % Normal 11.0-15.0 [facility] Comment on above: Performed By: #### C BC #### [facility] [address] [place] [address] Dr. Paz Burk Hematocrit (Bld) [Volume fraction] 37.3 % Normal 36.0-48.0 [facility] Comment on above: Performed By: #### C BC #### [facility] [address] [address] [address] Paz Burk Hemoglobin (Bld) [Mass/Vol] 12.3 g/dL Normal 12.0-16.0 [facility] Comment on above: Performed By: #### C BC #### [facility] [address] [address] [address] Paz Burk IG # 0.07 10e3/ul Critically high 0.00-0.03 [facility] Comment on above: Performed By: #### C BC #### [facility] [address] [place] [address] Dr. Paz Burk IG % 0.5 % Normal 0.0-0.5 [facility] Comment on above: Performed By: #### C BC #### [facility] [address] [place] [address] Dr. Paz Burk LYMPH # 3.0 103/ul Normal 1.2-3.8 [facility] Comment on above: Performed By: #### C BC #### [facility] [address] [place] [address] Dr. Paz Burk Lymphocytes/100 WBC (Bld) 21.2 % Normal 20.5-60.0 [facility] Comment on above: Performed By: #### C BC #### [facility] [address] [place] [address] Dr. Paz Burk MANUAL DIFF REQ NO Normal [facility] Comment on above: Performed By: #### C BC #### [facility] [address] [place] [address] Dr. Paz Burk MCH (RBC) [Entitic mass] 26.8 pg Normal 26.7-34.0 [facility] Comment on above: Performed By: #### C BC #### [facility] [address] [place] [address] Dr. Paz Burk MCHC (RBC) [Mass/Vol] 33.0 g/dL Normal 29.9-35.2 [facility] Comment on above: Performed By: #### C BC #### [facility] [address] [place], [place] [id number] Dr. Paz Burk MCV (RBC) [Entitic vol] 81.3 fL Normal 81.0-99.0 [facility] Comment on above: Performed By: #### C BC #### [facility] [address] [place] [address] Dr. Paz Burk MONO # 0.7 103/ul Normal 0.3-0.8 [facility] Comment on above: Performed By: #### C BC #### [facility] [address] [place] [address] Dr. Paz Burk Monocytes/100 WBC (Bld) 4.8 % Normal 1.7-12.0 [facility] Comment on above: Performed By: #### C BC #### [facility] [address] [place] [address] Dr. Paz Burk NEUT # 10.3 103/ul Critically high 1.4-6.5 [facility] Comment on above: Performed By: #### C BC #### [facility] [address] [place] [address] Dr. Paz Burk Neutrophils/100 WBC (Bld) 72.1 % Normal 43.0-75.0 [facility] Comment on above: Performed By: #### C BC #### [facility] [address] [place] [address] Dr. Paz Burk Platelet mean volume (Bld) [Entitic vol] 11.2 fL Normal 9.5-13.5 [facility] Comment on above: Performed By: #### C BC #### [facility] [address] [place] [address] Dr. Paz Burk PLT 277 103/ul Normal 150-450 [facility] Comment on above: Performed By: #### C BC #### [facility] [address] [place] [address] Dr. Paz Burk RBC 4.59 106/ul Normal 4.20-5.40 [facility] Comment on above: Performed By: #### C BC #### [facility] [address] [place] [address] Dr. Paz Burk WBC 14.3 103/ul Critically high 4.0-11.0 [facility] Comment on above: Performed By: #### C #### [facility] [id number] Paz Burk CTA CHEST WO W [...] LUIS DONATO Date: 2022-01-20 03:10 Normal [facility] Covid-19 PCR (CVDTB)on 12-29 SARS-CoV-2 (COVID-19) RNA IGNACIO+probe Ql (Unsp spec) Not detected Normal NOT DETECTED [facility] Comment on above: Result Comment: When [...] for this test is supported by the [place] of [employer] and Human Service's declaration that [...] used). Performed By: #### C VDTBH #### [facility] [address] [place] [address] Dr. Paz Burk D-DIMERon 01-20-2022 D-DIMER 0.40 mg/L FEU Normal <=0.59 [facility] Comment on above: Performed By: #### C MP #### [facility] [address] [place] [address] Dr. Paz Burk D-DIMER COMMENTS SEE BELOW Normal [facility] Comment on above: Result Comment: Incr [...] hospitalization. Performed By: #### C MP #### [facility] [address] [place] [address] Dr. Paz Burk PREG HCG QUALon 01-20-2022 , QUAL Negative Normal NEGATIVE [facility] Comment on above: Performed By: #### C MP #### [facility] [address] [place] [address] Dr. Paz Burk PROF 14(COMP METB)on 022 Albumin [Mass/Vol] 3.3 g/dL Critically low 3.4-5.0 [facility] Comment on above: Performed By: #### C VDTBH #### [facility] [address] [address] [address] Paz Burk Albumin/Globulin [Mass ratio] 0.8 {ratio} Normal [facility] Comment on above: Performed By: #### C VDTBH #### [facility] [address] [address] [address] Paz Burk ALP [Catalytic activity/Vol] 95 U/L Normal 46-116 [facility] Comment on above: Performed By: #### C VDTBH #### [facility] [address] [address] [address] Paz Burk ALT [Catalytic activity/Vol] 15 U/L Normal 14-59 [facility] Comment on above: Performed By: #### C VDTBH #### [facility] [address] [address] [address] Paz Burk Anion gap [Moles/Vol] 10.4 mmol/L Normal [facility] Comment on above: Performed By: #### C VDTBH #### [facility] [address] [address] [address] Paz Burk AST [Catalytic activity/Vol] 10 U/L Critically low 15-37 [facility] Comment on above: Performed By: #### C VDTBH #### [facility] [address] [address] [address] Paz Burk Bilirubin [Mass/Vol] 0.1 mg/dL Critically low 0.2-1.0 [facility] Comment on above: Performed By: #### C VDTBH #### [facility] [address] [address] [address] Paz Burk Calcium [Mass/Vol] 8.8 mg/dL Normal 8.5-10.1 [facility] Comment on above: Performed By: #### C VDTBH #### [facility] [address] [address] [address] Paz Burk Chloride [Moles/Vol] 105 mmol/L Normal 98-107 [facility] Comment on above: Performed By: #### C VDTBH #### [facility] [address] [address] [address] Paz Burk CO2 [Moles/Vol] 25.3 mmol/L Normal 21.0-32.0 [facility] Comment on above: Performed By: #### C VDTBH #### [facility] [address] [address] [address] Paz Burk Creatinine [Mass/Vol] 0.83 mg/dL Normal 0.55-1.02 [facility] Comment on above: Performed By: #### C VDTBH #### [facility] [address] [address] [address] Paz Burk EGFR-AF MOZAMBICAN >60 Normal >=60 [facility] Comment on above: Performed By: #### C VDTBH #### [facility] [address] [address] [address] Paz Burk EGFR-NON AF MOZAMBICAN >60 Normal >=60 [facility] Comment on above: Performed By: #### C VDTBH #### [facility] [address] [address] [address] Paz Burk Globulin (S) [Mass/Vol] 4.1 g/dL Normal [facility] Comment on above: Performed By: #### C VDTBH #### [facility] [address] [place] [address] Dr. Paz Burk Glucose [Mass/Vol] 102 mg/dL Normal 74-106 [facility] Comment on above: Performed By: #### C VDTBH #### [facility] [address] [address] [address] Paz Burk Potassium [Moles/Vol] 3.7 mmol/L Normal 3.5-5.1 [facility] Comment on above: Performed By: #### C VDTBH #### [facility] [address] [address] [address] Paz Burk Protein [Mass/Vol] 7.4 g/dL Normal 6.4-8.2 [facility] Comment on above: Performed By: #### C VDTBH #### [facility] [address] [place] [address] Dr. Paz Burk Sodium [Moles/Vol] 137 mmol/L Normal 136-145 [facility] Comment on above: Performed By: #### C VDTBH #### [facility] [address] [place] [address] Dr. Paz Burk Urea nitrogen [Mass/Vol] 11.0 mg/dL Normal 7.0-18.0 [facility] Comment on above: Performed By: #### C VDTBH #### [facility] [address] [place] [address] Dr. Paz Burk Urea nitrogen/Creatinine [Mass ratio] 13.3 mg/mg Normal [facility] Comment on above: Performed By: #### C VDTBH #### [facility] [address] [place] [address] Dr. Paz Burk TROPONIN, HIGH SENSITIVITYon 01-20-2022 HSTROP 4.2 pg/mL Normal 4.0-51.3 [facility] Comment on above: Result Comment: CUT- OFF POINTS HAVE BEEN ESTABLISHED BASED ON THE FOURTH UNIVERSAL DEFINITIONS OF MYOCARDIAL INFARCTION. THE UPPER REFERENCE LIMIT (URL) OF TROPONIN, DEFINED THE 99TH PERCENTILE OF cTnI DISTRIBUTION IN A REFERENCE POPULATION, HAS BEEN CONFIRMED THE DECISION THRESHOLD FOR PR DIAGNOSIS. Performed By: #### C #### [facility] [address] [place] [address] Dr. Paz Burk HSTROP <4.0 Normal 4.0-51.3 [facility] Comment on above: Result Comment: CUT- OFF POINTS HAVE BEEN ESTABLISHED BASED ON THE FOURTH UNIVERSAL DEFINITIONS OF MYOCARDIAL INFARCTION. THE UPPER REFERENCE LIMIT (URL) OF TROPONIN, DEFINED THE 99TH PERCENTILE OF cTnI DISTRIBUTION IN A REFERENCE POPULATION, HAS BEEN CONFIRMED THE DECISION THRESHOLD FOR PR DIAGNOSIS. Performed By: #### C VDTBH #### [facility] [address] [place] [address] Dr. Paz Burk XR CHEST 1 Von [...] Cornel QUIÑONES Date: 2022-01-19 23:43 Normal [facility] CBC AUTO DIFFon 12-21-2021 BASO # 0.0 103/ul Normal 0.0-0.1 [facility] Comment on above: Performed By: #### C VDTBH #### [facility] [address] [address] [address] Paz Burk Basophils/100 WBC (Bld) 0.3 % Normal 0.2-2.0 [facility] Comment on above: Performed By: #### C VDTBH #### [facility] [address] [place] [address] Dr. Paz Burk EO # 0.2 103/ul Normal 0.0-0.7 [facility] Comment on above: Performed By: #### C VDTBH #### [facility] [address] [address] [address] Paz Burk Eosinophils/100 WBC (Bld) 1.2 % Normal 0.9-7.0 [facility] Comment on above: Performed By: #### C VDTBH #### [facility] [address] [place] [address] Dr. Paz Burk Erythrocyte distribution width (RBC) [Ratio] 14.4 % Normal 11.0-15.0 [facility] Comment on above: Performed By: #### C VDTBH #### [facility] [address] [place] [address] Dr. Paz Burk Hematocrit (Bld) [Volume fraction] 37.7 % Normal 36.0-48.0 [facility] Comment on above: Performed By: #### C VDTBH #### [facility] [address] [place] [address] Dr. Paz Burk Hemoglobin (Bld) [Mass/Vol] 12.0 g/dL Normal 12.0-16.0 [facility] Comment on above: Performed By: #### C VDTBH #### [facility] [address] [place] [address] Dr. Paz Burk IG # 0.06 10e3/ul Critically high 0.00-0.03 [facility] Comment on above: Performed By: #### C VDTBH #### [facility] [address] [place] [address] Dr. Paz Burk IG % 0.4 % Normal 0.0-0.5 [facility] Comment on above: Performed By: #### C VDTBH #### [facility] [address] [place] [address] Dr. Paz Burk LYMPH # 3.1 103/ul Normal 1.2-3.8 [facility] Comment on above: Performed By: #### C VDTBH #### [facility] [address] [place] [address] Dr. Paz Burk Lymphocytes/100 WBC (Bld) 21.8 % Normal 20.5-60.0 [facility] Comment on above: Performed By: #### C VDTBH #### [facility] [address] [place] [address] Dr. Paz Burk MANUAL DIFF REQ NO Normal [facility] Comment on above: Performed By: #### C VDTBH #### [facility] [address] [place] [address] Dr. Paz Burk MCH (RBC) [Entitic mass] 26.1 pg Critically low 26.7-34.0 [facility] Comment on above: Performed By: #### C VDTBH #### [facility] [address] [place] [address] Dr. Paz Burk MCHC (RBC) [Mass/Vol] 31.8 g/dL Normal 29.9-35.2 [facility] Comment on above: Performed By: #### C VDTBH #### [facility] [address] [place] [address] Dr. Paz Burk MCV (RBC) [Entitic vol] 82.0 fL Normal 81.0-99.0 [facility] Comment on above: Performed By: #### C VDTBH #### [facility] [address] [place] [address] Dr. Paz Burk MONO # 0.8 103/ul Normal 0.3-0.8 [facility] Comment on above: Performed By: #### C VDTBH #### [facility] [address] [place] [address] Dr. Paz Burk Monocytes/100 WBC (Bld) 5.9 % Normal 1.7-12.0 [facility] Comment on above: Performed By: #### C VDTBH #### [facility] [address] [place] [address] Dr. Paz Burk NEUT # 10.0 103/ul Critically high 1.4-6.5 [facility] Comment on above: Performed By: #### C VDTBH #### [facility] [address] [place] [address] Dr. Paz Burk Neutrophils/100 WBC (Bld) 70.4 % Normal 43.0-75.0 [facility] Comment on above: Performed By: #### C VDTB #### [facility] [address] [place] [address] Dr. Paz Burk Platelet mean volume (Bld) [Entitic vol] 11.0 fL Normal 9.5-13.5 [facility] Comment on above: Performed By: #### C VDTBH #### [facility] [address] [place] [address] Dr. Paz Burk PLT 308 103/ul Normal 150-450 [facility] Comment on above: Performed By: #### C VDTBH #### [facility] [address] [place] [address] Dr. Paz Burk RBC 4.60 106/ul Normal 4.20-5.40 [facility] Comment on above: Performed By: #### C VDTBH #### [facility] [address] [place] [address] Dr. Paz Burk WBC 14.2 103/ul Critically high 4.0-11.0 [facility] Comment on above: Performed By: #### C VDPAM [facility] #### [facility] [address] [place] [address] Dr. Paz Burk PROF 14(COMP METB)on 022 Albumin [Mass/Vol] 3.4 g/dL Normal 3.4-5.0 [facility] Comment on above: Performed By: #### C MP #### [facility] [address] [place] [address] Dr. Paz Burk Albumin/Globulin [Mass ratio] 0.8 {ratio} Normal [facility] Comment on above: Performed By: #### C MP #### [facility] [address] [place] [address] Dr. Paz Burk ALP [Catalytic activity/Vol] 86 U/L Normal 46-116 [facility] Comment on above: Performed By: #### C MP #### [facility] [address] [place] [address] Dr. Paz Burk ALT [Catalytic activity/Vol] 26 U/L Normal 14-59 [facility] Comment on above: Performed By: #### C MP #### [facility] [address] [place] [address] Dr. Paz Burk Anion gap [Moles/Vol] 14.6 mmol/L Normal [facility] Comment on above: Performed By: #### C MP #### [facility] [address] [place] [address] Dr. Paz Burk AST [Catalytic activity/Vol] 15 U/L Normal 15-37 [facility] Comment on above: Performed By: #### C MP #### [facility] [address] [place] [address] Dr. Paz Burk Bilirubin [Mass/Vol] 0.2 mg/dL Normal 0.2-1.0 [facility] Comment on above: Performed By: #### C MP #### [facility] [address] [place] [address] Dr. Paz Burk Calcium [Mass/Vol] 8.5 mg/dL Normal 8.5-10.1 [facility] Comment on above: Performed By: #### C MP #### [facility] [address] [place] [address] Dr. Paz Burk Chloride [Moles/Vol] 104 mmol/L Normal 98-107 [facility] Comment on above: Performed By: #### C MP #### [facility] [address] [address] [address] Paz Burk CO2 [Moles/Vol] 26.5 mmol/L Normal 21.0-32.0 [facility] Comment on above: Performed By: #### C MP #### [facility] [address] [place] [address] Dr. Paz Burk Creatinine [Mass/Vol] 0.88 mg/dL Normal 0.55-1.02 [facility] Comment on above: Performed By: #### C MP #### [facility] [address] [place] [address] Dr. Paz Burk EGFR-AF MOZAMBICAN >60 Normal >=60 [facility] Comment on above: Performed By: #### C MP #### [facility] [address] [place] [address] Dr. Paz Burk EGFR-NON AF MOZAMBICAN >60 Normal >=60 [facility] Comment on above: Performed By: #### C MP #### [facility] [address] [place] [address] Dr. Paz Burk Globulin (S) [Mass/Vol] 4.4 g/dL Normal [facility] Comment on above: Performed By: #### C MP #### [facility] [address] [place] [address] Dr. Paz Burk Glucose [Mass/Vol] 116 mg/dL Critically high 74-106 [facility] Comment on above: Performed By: #### C MP #### [facility] [address] [place] [address] Dr. Paz Burk Potassium [Moles/Vol] 3.1 mmol/L Critically low 3.5-5.1 [facility] Comment on above: Performed By: #### C MP #### [facility] [address] [address] [address] Paz Burk Protein [Mass/Vol] 7.8 g/dL Normal 6.4-8.2 [facility] Comment on above: Performed By: #### C MP #### [facility] [address] [address] [address] Paz Burk Sodium [Moles/Vol] 142 mmol/L Normal 136-145 [facility] Comment on above: Performed By: #### C MP #### [facility] [address] [address] [address] Paz Burk Urea nitrogen [Mass/Vol] 8.0 mg/dL Normal 7.0-18.0 [facility] Comment on above: Performed By: #### C MP #### [facility] [address] [place] [address] Dr. Paz Burk Urea nitrogen/Creatinine [Mass ratio] 9.1 mg/mg Normal [facility] Comment on above: Performed By: #### C MP #### [facility] [address] [place] [address] Dr. Paz Burk PROTIMEon 12-21-2021 INR Coag (PPP) [Relative time] 1.05 {INR} Normal [facility] Comment on above: Performed By: #### P TT, PT #### [facility] [address] [place] [address] Dr. Paz Burk INR GUIDELINES SEE BELOW Normal [facility] Comment on above: Result Comment: NANO RED INR: 2.0 - 3.0 CONDITIONS NOT LISTED BELOW 2.5 - 3.5 FOR PROSTHETIC HEART VALVE REPLACEMENT 2.5 - 3.5 RECURRENT THROMBOSIS Performed By: #### P TT, PT #### [facility] [address] [place] [address] Dr. Paz Burk PT Coag (PPP) [Time] 11.3 s Normal 9.0-11.6 [facility] Comment on above: Performed By: #### P TT, PT #### [facility] [address] [place] [address] Dr. Paz Burk PTTon 12-21-2021 aPTT Coag (Bld) [Time] 32.5 s Normal 22.3-36.2 [facility] Comment on above: Performed By: #### P TT, PT #### [facility] [address] [place] [address] Dr. Paz Burk BLOOD GASES BTYon 11-29-2021 02 MODE ROOM AIR Normal [facility] Comment on above: Performed By: #### C VDTBH #### [facility] [address] [place] [address] Dr. Paz Burk ALLENS TEST Positive [facility] Comment on above: Performed By: #### C VDTBH #### [facility] [address] [place] [address] Dr. Paz Burk Base excess Calc (Bld) [Moles/Vol] 0.7 mmol/L Normal -2.0-2.0 [facility] Comment on above: Performed By: #### C VDTBH #### [facility] [address] [place] [address] Dr. Paz Burk BIPAP PRESSURE [facility] Comment on above: Performed By: #### C VDTBH #### [facility] [address] [place] [address] Dr. Paz Burk CPAP [facility] Comment on above: Performed By: #### C VDTBH #### [facility] [address] [place] [address] Dr. Paz Burk FIO2 [facility] Comment on above: Performed By: #### C VDTBH #### [facility] [address] [place] [address] Dr. Paz Burk HCO3 (Bld) [Moles/Vol] 25.3 mmol/L Normal 22.0-26.0 [facility] Comment on above: Performed By: #### C VDTBH #### [facility] [address] [place] [address] Dr. Paz Burk LPM [facility] Comment on above: Performed By: #### C VDTBH #### [facility] [address] [place] [address] Dr. Paz Burk MINUTE VOLUME Normal [facility] Comment on above: Performed By: #### C VDTBH #### [facility] [address] [place] [address] Dr. Paz Burk Oxygen (Bld) [Partial pressure] 96.1 mm[Hg] Normal 80.0-100.0 [facility] Comment on above: Performed By: #### C VDTBH #### [facility] [address] [place] [address] Dr. Paz Burk Oxygen saturation in Blood 99.0 % Normal 95.0-100.0 [facility] Comment on above: Performed By: #### C VDTBH #### [facility] [address] [place] [address] Dr. Paz Burk PCO2 35.8 mmHg Normal 35.0-45.0 [facility] [facility] Comment on above: Performed By: #### C VDTBH #### [facility] [address] [place] [address] Dr. Paz Burk PEEP [facility] Comment on above: Performed By: #### C VDTBH #### [facility] [address] [place] [address] Dr. Paz Burk pH (Bld) 7.448 [pH] Normal 7.350-7.450 [facility] Comment on above: Performed By: #### C VDTBH #### [facility] [address] [place] [address] Dr. Paz Burk PIP [facility] Comment on above: Performed By: #### C VDTBH #### [facility] [address] [place] [address] Dr. Paz Burk PS [facility] Comment on above: Performed By: #### C VDTBH #### [facility] [address] [place] [address] Dr. Paz Burk PUNCTURE SITE [facility] Comment on above: Performed By: #### C VDTBH #### [facility] [address] [place] [address] Dr. Paz Burk RATE Normal [facility] Comment on above: Performed By: #### C VDTBH #### [facility] [address] [place] [address] Dr. Paz Burk VENT MODE [facility] Comment on above: Performed By: #### C VDTBH #### [facility] [address] [place] [address] Dr. Paz Burk VT [facility] Comment on above: Performed By: #### C VDTBH #### [facility] [address] [place] [address] Dr. Paz Burk CULTURE URINEon 08-21-2021 CULTURE URINE Culture Observations: MODERATE GROWTH OF MIXED GENITAL TING. NO POTENTIAL PATHOGENS SEEN. [facility] Comment on above: Performed By: #### C MP #### [facility] [address] [place] [address] Dr. Paz Burk ER URINE PROFILEon Bilirubin Ql (U) Negative Normal NEGATIVE [facility] Comment on above: Performed By: #### C MP #### [facility] [address] [place] [address] Dr. Paz Burk Clarity (U) CLEAR Normal CLEAR [facility] Comment on above: Performed By: #### C MP #### [facility] [address] [place] [address] Dr. Paz Burk Color (U) LT. YELLOW Normal YELLOW [facility] Comment on above: Performed By: #### C MP #### [facility] [address] [place] [address] Dr. Paz Burk ERUALMA A micrscopic examination will be performed if indicated. [facility] Comment on above: Performed By: #### C MP #### [facility] [address] [place] [address] Dr. Paz Burk Glucose Ql (U) Negative Normal NEGATIVE [facility] Comment on above: Performed By: #### C MP #### [facility] [address] [place] [address] Dr. Paz Burk Hemoglobin Ql (U) Negative Normal NEGATIVE [facility] Comment on above: Performed By: #### C MP #### [facility] [address] [address] [address] Paz Burk Ketones Ql (U) Negative Normal NEGATIVE [facility] Comment on above: Performed By: #### C MP #### [facility] [address] [address] [address] Paz Burk LEUKOCYTES LARGE Abnormal NEGATIVE [facility] Comment on above: Performed By: #### C MP #### [facility] [address] [address] [address] Paz Burk Nitrite Ql (U) Negative Normal NEGATIVE [facility] Comment on above: Performed By: #### C MP #### [facility] [address] [place] [address] Dr. Paz Burk pH (U) 7.5 [pH] Normal 5-9 [facility] Comment on above: Performed By: #### C MP #### [facility] [address] [address] [address] Paz Burk SPEC GRAVITY 1.020 Normal 1.005-<=1.025 [facility] Comment on above: Performed By: #### C MP #### [facility] [address] [address] [address] Paz Burk UA PROTEIN Negative Normal NEGATIVE/ TRACE [facility] Comment on above: Performed By: #### C MP #### [facility] [address] [address] [address] Paz Burk UR MICRO IND INDICATED Normal [facility] Comment on above: Performed By: #### C MP #### [facility] [address] [address] [address] Paz Burk Urobilinogen Qn (U) 0.2 {Ara'U}/dL Normal 0.2 - 1. 0 [facility] Comment on above: Performed By: #### C MP #### [facility] [address] [place] [address] Dr. Paz Burk URon 08-21-2021 , QUAL Negative Normal NEGATIVE [facility] Comment on above: Performed By: #### C MP #### [facility] [address] [address] [address] Paz Burk URINE MICROSCOPIC ONLYon BACTERIA SMALL Abnormal NONE SEEN [facility] Comment on above: Performed By: #### C MP #### [facility] [address] [place] [address] Dr. Paz Burk Bacteria identified Cx Nom (U) INDICATED Normal [facility] Comment on above: Performed By: #### C MP #### [facility] [address] [place] [address] Dr. Paz Burk CAST NONE SEEN Normal NONE SEEN [facility] Comment on above: Performed By: #### C MP #### [facility] [address] [place] [address] Dr. Paz Burk Crystals LM Nom (Urine sed) NONE SEEN Normal NONE SEEN [facility] Comment on above: Performed By: #### C MP #### [facility] [address] [place] [address] Dr. Paz Burk Epithelial cells LM Ql (Urine sed) FEW Abnormal NONE SEEN /RARE [facility] Comment on above: Performed By: #### C MP #### [facility] [address] [place] [address] Dr. Paz Burk MUCOUS NONE SEEN Normal NONE SEEN [facility] Comment on above: Performed By: #### C MP #### [facility] [address] [place] [address] Dr. Paz Burk RBC NONE SEEN Abnormal 0-2 [facility] Comment on above: Performed By: #### C MP #### [facility] [address] [place] [address] Dr. Paz Burk WBC 5-10 Abnormal NONE SEEN [facility] Comment on above: Performed By: #### C MP #### [facility] [address] [place] [address] Dr. Paz Burk Vital Signs Date Time Vital Sign Value Performing Clinician Facility 04-09-2024 11:34-0500 Body mass index (BMI) [Ratio] 45.52 kg/m2 Demetrius Siuzio DO Work Phone: [facility] 04-09-2024 11:34-0500 Body weight 127.91 kg Demetrius Jorje DO Work Phone: [facility] 04-09-2024 11:34-0500 Diastolic blood pressure 72 mm[Hg] Demetrius Jorje DO Work Phone: [facility] 04-09-2024 11:34-0500 Systolic blood pressure 116 mm[Hg] Demetrius Jorje DO Work Phone: [facility] 03-08-2024 09:24-0500 Body mass index (BMI) [Ratio] 45.1 kg/m2 [facility] 03-08-2024 09:24-0500 Body weight 126.73 kg [facility] 03-08-2024 09:24-0500 Diastolic blood pressure 70 mm[Hg] [facility] 03-08-2024 09:24-0500 Systolic blood pressure 110 mm[Hg] [facility] 06-29-2020 09:02-0400 Body height 167.64 cm Edith Ford Work Phone: [facility] 06-29-2020 09:02-0400 Body mass index (BMI) [Ratio] 48.2 kg/m2 Edith Ford Work Phone: [facility] 06-29-2020 09:02-0400 Body temperature 97.8 [degF] Edith Ford Work Phone: [facility] 06-29-2020 09:02-0400 Body weight 135.65 kg Edith Ford Work Phone: [facility] 06-29-2020 09:02-0400 Diastolic blood pressure 73 mm[Hg] Edith Ford Work Phone: [facility] 06-29-2020 09:02-0400 Heart rate 69 /min Edith Ford Work Phone: [facility] 06-29-2020 09:02-0400 Respiratory rate 16 /min Edith Ford Work Phone: [facility] 06-29-2020 09:02-0400 SaO2% (BldA) [Mass fraction] 98 % Edith Ford Work Phone: [facility] 06-29-2020 09:020400 Systolic blood pressure 130 mm[Hg] Edith Ford Work Phone: [facility] Encounters Encounter Date Encounter Type Care Provider Facility Start: 05-13-2024 End: 05-13-2024 Orders Only Elizabeth Wang RN [facility] Comment on above: 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 (Primary Dx) Start: 05-10-2024 End: 05-10-2024 ambulatory [facility] Start: 05-07-2024 End: 05-07-2024 ambulatory TALYA WOODARD Not Available Start: 04-26-2024 End: 04-26-2024 Orders Only Lara Borrero RN [facility] at [facility] Comment on above: 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 (Primary Dx); 16 weeks gestation of Start: 04-11-2024 End: 04-11-2024 Chart abstracting Sesar Hugo MD Work Phone: [facility] Start: 04-10-2024 End: 04-10-2024 Telephone encounter Brittanie Chen LPN [facility] Start: 04-09-2024 End: 04-09-2024 Bamboo flowsheet Demetrius Jorje DO Work Phone: [facility] Start: 04-09-2024 End: 04-09-2024 Bamboo flowsheet Demetrius Jorje DO Work Phone: [facility] Start: 04-09-2024 End: 04-09-2024 Office outpatient visit 15 minutes Demetrius Jorje DO Work Phone: [facility] Comment on above: Second trimester pre gnancy; 13 weeks gestation of Start: 04-09-2024 End: 04-09-2024 ambulatory DEMETRIUS JORJE Not Available Start: 03-15-2024 End: 03-15-2024 Clinisync Result Encounter Demetrius Jorje DO Work Phone: [facility] Unsolicited Start: 03-15-2024 End: 03-15-2024 Clinisync Result Encounter Demetrius Jorje DO Work Phone: [facility] Unsolicited Start: 03-08-2024 End: 03-08-2024 Office outpatient visit 5 minutes [facility] J[facility]je Nurse [facility] Comment on above: GA: 9w2d Start: 03-08-2024 End: 03-08-2024 ambulatory DEMETRIUS JORJE Not Available Start: 06-29-2023 End: 06-30-2023 ambulatory WALKER Almonte KULWANT Not Available Start: 05-08-2022 End: 05-08-[address] KATHLEEN MISC Facility:[facility] Start: 03-13-2022 End: 03-13-[address] KATHLEEN MISC Facility:[facility] Start: 03-03-2022 End: 03-04-2022 ambulatory Neal Garcia [place] Start: 03-03-2022 End: 03-03-2022 Patient encounter procedure Edith Ford [facility] Start: 02-23-2022 End: 02-24-2022 ambulatory DOCTOR MISC Facility:[facility] Start: 01-20-2022 End: 01-20-2022 ambulatory DOCTOR MISC Facility:[facility] Start: 12-21-2021 End: 12-21-2021 ambulatory DOCTOR MISC Facility:[facility] Start: 11-29-2021 End: 11-29-2021 ambulatory DOCTOR MISC Facility:[facility] Start: 08-21-2021 End: 08-21-2021 ambulatory DOCTOR MISC Facility:[facility] Start: 06-29-2020 End: 06-29-2020 Emergency department patient visit Edith Ford Work Phone: [facility] Procedures Date Procedure Procedure Detail Performing Clinician Start: 04-09-2024 Urnls dip stick/tabl et rgnt non-auto w/o micrscp Demetrius Jorje DO Work Phone: Start: 03-15-2024 Blood count complete automated Not In System Ref Prov Start: 03-15-2024 Syphilis test non-treponemal antibody qual Not In System Ref Prov Start: 03-15-2024 TYPE AND SCREEN Not In System Ref Prov Start: 03-15-2024 ALL CBC WITH AUTO DIFF Demetrius Jorje DO Work Phone: Start: 03-08-2024 Urnls dip stick/tabl et rgnt non-auto w/o micrscp Demetrius Jorje DO Work Phone: Appendectomy Edith Bello n History of tympanostomy tubes in ears Pola dimas Ford Tubes in Ears Edith Cho on Plan of Treatment Date Care Activity Detail Author Start: 05-13-2025 End: 05-13-2025 US MFM with or without consult US MFM with or without consult Imaging Routine Monochorionic diamniotic twin gestation in second trimester Expected: 05/13/2025 (Approximate), Expires: 05/13/2025 [employer] Work Phone: Comment on above: Expected: 05/13/2025 (Approximate), Expires: 05/13/2025 Start: 04-26-2025 Adult BMI Screening [facility] Start: 04-26-2025 Tobacco Screening Tobacco Screening [employer] Start: 04-26-2025 End: 04-26-2025 US MFM with or without consult US MFM with or without consult Imaging Routine Monochorionic diamniotic twin gestation in second trimester 16 weeks gestation of Expected: 04/26/2025 (Approximate), Expires: 04/26/2025 [employer] Work Phone: Comment on above: Expected: 04/26/2025 (Approximate), Expires: 04/26/2025 Start: 07-05-2024 End: 07-05-2024 Patient encounter procedure 07/05/2024 2:30 PM EDT Office Visit [facility] at [facility] [address] [address] Sesar Hugo MD [address] [address] [facility] at [facility] Start: 06-07-2024 End: 06-07-2024 Patient encounter procedure 06/07/2024 9:45 AM EDT Appointment Maternal Medicine [address] [place] [address] [facility] [place] Start: 05-27-2024 End: 05-27-2024 Patient encounter procedure 05/27/2024 1:00 PM EDT Appointment [facility] [address] [place] [address] [facility] Start: 05-10-2024 End: 05-10-2024 Patient encounter procedure 05/10/2024 1:45 PM EDT Appointment [facility] [address] [place] [address] [facility] Start: 05-07-2024 End: 05-07-2024 Patient encounter procedure 05/07/2024 9:30 AM EDT Office Visit [facility] [address] [place] [address] Talya Woodard PA [address] [place] [address] [facility] Start: 04-26-2024 End: 04-26-2024 Patient encounter procedure 04/26/2024 8:45 AM EST Office Visit [facility] at [facility] [address] [place] [phone] Sesar Hugo MD [address], [address] [place] [address], [place] [address] [facility] at [facility] Start: 04-26-2024 End: 04-26-2024 Patient encounter procedure 04/26/2024 7:30 AM EST Appointment [facility] [address] [place] [phone] [facility] Start: 04-09-2024 End: 04-09-2024 Patient encounter procedure 04/09/2024 11:20 AM EST Routine [facility] [address] [place] [id number] Demetrius Recinos, DO [address] [place] [address] Arrived [facility] Comment on above: Arrived Start: 04-08-2024 End: 04-08-2024 Patient encounter procedure 04/08/2024 9:20 AM EST Routine [facility] [address] [place] [address] Demetrius Recinos, DO [address] [place] [address] [facility] Start: 03-08-2024 End: 03-08-2025 ABO/Rh ABO/Rh Lab Routine Missed menses , unspecified gestational age Expected: 03/08/2024 (Approximate), Expires: 03/08/2025 [facility] Comment on above: Expected: 03/08/2024 (Approximate), Expires: 03/08/2025 Start: 03-08-2024 End: 03-08-2025 Blood type and Indirect antibody screen panel - Blood Type and screen Lab Routine Missed menses , unspecified gestational age Expected: 03/08/2024 (Approximate), Expires: 03/08/2025 [facility] Work Phone: Comment on above: Expected: 03/08/2024 (Approximate), Expires: 03/08/2025 Start: 03-08-2024 End: 03-08-2025 Drugs of abuse panel - Urine by Screen method Rapid drug screen, urine Lab Routine , unspecified gestational age Encounter for supervision of normal first in first trimester Expected: 03/08/2024 (Approximate), Expires: 03/08/2025 [facility] Comment on above: Expected: 03/08/2024 (Approximate), Expires: 03/08/2025 Start: 10-29-2023 Influenza vaccination Influenza Vacc ine [facility] Start: 11-27-2021 DTaP,Tdap and Td Vaccines (7 - Td or Tdap) DTaP,Tdap and Td Vaccines (7 - Td or Tdap) [facility] Start: 10-05-2019 Screening for malign ant neoplasm of cervix Pap Smear [facility] Start: 2017 DTaP,Tdap and Td Vaccines (1 - Tdap) DTaP,Tdap and Td Vaccines (1 - Tdap) [facility] Start: 2016 Adult BMI Follow Up Plan Adult BMI Follow Up Plan [facility] Start: 2016 Adult BMI Screening Adult BMI Screen ing [facility] Start: 2010 Depression Screening Depression Scre ening [facility] Start: 2010 Tobacco Screening Tobacco Screening [facility] Bacteria identified in Urine by Culture Urine culture Microbiology Routine Missed menses Ordered: 03/08/2024 [facility] Comment on above: Ordered: 03/08/2024 CBC W Auto Different ial panel - Blood CBC and differential Lab Routine Missed menses , unspecified gestational age Ordered: 03/08/2024 [facility] Comment on above: Ordered: 03/08/2024 Hemoglobin A1c/Hemoglobin.total in Blood Hemoglobin A1c Lab Routine Missed menses , unspecified gestational age Ordered: 03/08/2024 [facility] Comment on above: Ordered: 03/08/2024 Hepatitis B virus surface Ag [Presence] in Serum or Plasma by Immunoassay Hepatitis B surface antigen Lab Routine Missed menses , unspecified gestational age Ordered: 03/08/2024 [facility] Comment on above: Ordered: 03/08/2024 Hepatitis C virus Ab [Presence] in Serum or Plasma by Immunoassay Hepatitis C antibody Lab Routine Missed menses , unspecified gestational age Ordered: 03/08/2024 [facility] Comment on above: Ordered: 03/08/2024 HIV-1/HIV-2 antigen/antibody combination immunoassay HIV-1 and HIV-2 antibodies Lab Routine Missed menses , unspecified gestational age Ordered: 03/08/2024 [facility] Comment on above: Ordered: 03/08/2024 Patient Education Muscle Strain (ED) [facility] Patient referral [facility] Reagin Ab [Presence] in Serum by RPR RPR Lab Routine Missed menses , unspecified gestational age Ordered: 03/08/2024 [facility] Comment on above: Ordered: 03/08/2024 Rubella antibody, IgG Rubella an tibody, IgG Lab Routine Missed menses , unspecified gestational age Ordered: 03/08/2024 [facility] Comment on above: Ordered: 03/08/2024 Immunizations Immunization Date Immunization Notes Care Provider Sherron meek 01-30-2012 influenza virus vaccine, unspecified formulation Lara Borrero RN [facility] Payers Date Payer Category Payer Medicaid [facility] [id number] 2023 Private Health Insurance [facility] MED[facility] [id number] 1998 Unknown [id number] [id number]. 727 1998 Unknown [id number] 2.16.840.1.655307.3.579.2. 593 1998 Unknown [id number] 2.16840.1.387527.3.579.2. 593 1998 Unknown [id number] 2.16840.1.229877.3.579.2. 593 1998 Unknown [id number] 2.16840.1.728366.3.579.2. 593 1998 Unknown [id number] 2.16.840.1.995896.3.579.2. 593 1998 Unknown [id number] 2.16840.1.444271.3.579.2. 593 1998 Unknown [id number] 2.16840.1.399738.3.579.2. 593 1998 Unknown [id number] 2.16.840.1.060656.3.579.2. 1259 1998 Unknown [id number] 2.16.840.1.853330.3.579.2. 1259 1998 Unknown [id number] 2.16840.1.744892.3.579.2. 1259 1998 Unknown [id number] 2.16.840.1.666772.3.579.2. 1259 1998 Unknown [id number] 2.16.840.1.918283.3.579.2. 1259 1998 Unknown [id number] 2.16.840.1.815107.3.579.2. 1286 1998 Unknown [id number] 2.16.840.1.302750.3.579.2. 1286 1998 Unknown [id number] 2.16.840.1.824009.3.579.2. 1286 1959 Unknown [id number] 1959 Unknown [id number] Self-pay Self Pay [id number] Social History Date Type Detail Facility Start: 06-29-2020 End: 04-11-2024 Tobacco smoking status NHIS Never smoked tobacco (finding) [facility] Start: 2000 Sex Assigned At Female [facility] Tobacco Household tobacc o concerns: Yes. [facility] Tobacco smoking status No Smoking Status Entered [facility] Start: 03-08-2024 End: 04-26-2024 Sex Assigned At Female [facility] Start: 06-29-2023 End: 04-11-2024 Tobacco use and exposure Smokeless tobacco non-user [facility] Start: 03-08-2024 End: 04-26-2024 Alcoholic beverage intake Lifetime non-drinker (finding) [facility] Start: 03-08-2024 End: 04-26-2024 History of Social function [facility] Start: 01-17-2024 [facility] Start: 1998 Sex assigned at Not on file [facility] Tobacco smoking status COIS Tobacco smoking consumption unknown [facility] Unknown [facility] Start: 09-30-2014 Sex Female (finding) [facility] NEGATED: Highlighted rowStart: NINF History of tobacco use Passive smoker [facility] Goals Date Patient Goal Desired Activity /State Clinical Notes 06-29-2020 to 04-10-2024 Telephone Encounter - Brittanie Cehn LPN - 04/10/2024 12:28 PM ESTTelephone Encounter - Brittanie Chen LPN - 04/10/2024 12:28 PM LYNETTE Roberto - 04/09/2024 11:20 AM EST Note Date & Type Note Facility 04-10-2024 Miscellaneous Notes Please call us back we are holding an kade for you. documented in this encounter [facility] 04-10-2024 Telephone encounter Note Please call us back we are holding an kade for you. [facility] 04-09-2024 History of Presen t illness Narrative Reason for Appointment: Patient ID: Juan Diego Fulton is a 23 y.o. female who presents for Routine Visit Patient presents today for Return OB appointment. MEDICATIONS Current Outpatient Medications Medication Instructions Vit-Fe Fumarate-FA ( Vitamins) 28-0.8 MG tablet 1 tablet, Oral, Daily ALLERGIES Allergies Allergen Reactions Sumatriptan Shortness of breath Theophyllines Hives and Rash PROBLEMS Active Ambulatory Problems Diagnosis Date Noted No Active Ambulatory Problems Resolved Ambulatory Problems Diagnosis Date Noted No Resolved Ambulatory Problems Past Medical History: Diagnosis Date Abnormal uterine bleeding Irregular periods Oligomenorrhea PCOS (polycystic ovarian syndrome) Weight gain HISTORY PAST MEDICAL HISTORY SOCIAL HISTORY Past Medical History: Diagnosis Date Abnormal uterine bleeding Irregular periods Oligomenorrhea PCOS (polycystic ovarian syndrome) Weight gain Social History Tobacco Use Smoking status: Never Passive exposure: Never Smokeless tobacco: Never Vaping Use Vaping status: Unknown Substance Use Topics Alcohol use: Never Drug use: Defer Types: Marijuana FAMILY HISTORY Family History Problem Relation Name Age of Onset Mental illness Mother Diabetes Father Heart disease Father Heart disease Maternal Grandmother Diabetes Maternal Grandmother Diabetes Maternal Grandfather Mental illness Paternal Grandmother SURGICAL HISTORY Past Surgical History: Procedure Laterality Date APPENDECTOMY TYMPANOSTOMY TUBE PLACEMENT REVIEW OF SYSTEMS Review of Systems: Review of Systems Constitutional: Negative. HENT: Negative. Eyes: Negative. Respiratory: Negative. Cardiovascular: Negative. Gastrointestinal: Negative. Genitourinary: Negative. Musculoskeletal: Negative. Skin: Negative. Neurological: Negative. All other systems reviewed and are negative. Hematological: Negative. Endocrine: Negative. Allergic/Immunologic: Negative. OBJECTIVE Objective: Physical Exam Constitutional: Appearance: Normal appearance. She is normal weight. HENT: Head: Normocephalic. Cardiovascular: Rate and Rhythm: Normal rate. Pulses: Normal pulses. Pulmonary: Effort: Pulmonary effort is normal. Breath sounds: Normal breath sounds. Abdominal: Palpations: Abdomen is soft. Musculoskeletal: General: Normal range of motion. Neurological: General: No focal deficit present. Mental Status: She is alert and oriented to person, place, and time. Psychiatric: Mood and Affect: Mood normal. Behavior: Behavior normal. Thought Content: Thought content normal. Judgment: Judgment normal. Vitals and nursing note reviewed. Vitals: Estimated body mass index is 45.52 kg/m as calculated from the following: Height as of 06/02/22: 5' 6 . Weight as of this encounter: 282 lb. BP: 116/72 Patient's last menstrual period was 01/03/2024. ASSESSMENT & PLAN ICD-10-CM 1. Second trimester Z34.92 POCT urinalysis dipstick manually resulted 2. 13 weeks gestation of Z3A.13 Return OB: Patient presents today for a routine obstetrics appointment. Patient is currently 13w6d . Patient states she is doing well but has complaints of being tired due to current . Patient is twin gestation and will be referred to M Orders Placed This Encounter Procedures POCT urinalysis dipstick manually resulted Follow Up: Patient is to return to office in 4 week for routine OB appointment. Documented by LYNETTE Moreno documented in this encounter [facility] 03-08-2024 History of Presen t illness Narrative [...] or undercooked meat, and stay away from [facility]. Patient has also been advised to not change litter boxes and eat 6 small meals a day. Patient has been consulted regarding the do's and don'ts of . Patient was given labs and all questions and concerns were answered. Patient was given script for vitamins and Zofran. Patient given Elizabeth to do at 10 weeks. Follow Up: Patient is to return in 4 weeks for routine OB appointment. Follow Up: Patient is to have labs drawn at directed and return to office for initial OB appointment with provider. Patient may call office as needed with any concerns or questions. Nurse Visit Completed by: Mackenzie Davison LPN documented in this encounter [facility] 03-03-2022 Note Echocardiology Procedure Exam Date/Time Accession # Ordering Echo Transthoracic 03/03/2022 09:37 EST [id number] Edith Ford MD Complete CPT code [id number] Reason for Exam (Echo Transthoracic Complete) Cardiomegaly I51.[address] [address] Adult Echocardiogram Report Name: JUAN DIEGO FULTON Study Date: 03/03/2022 09:03 AM BP: 111/78 mmHg Patient Location: [facility] HR: 68 : 2000 Gender: Female Height: 66 in Age: 21 yrs Ethnicity: T Weight: 298 lb Reason For Study: Cardiomegaly I51.7 BSA: 2.4 m2 History: No cardiac history per patient Ordering Physician: Edith Ford Referring Physician: Edith Ford Performed By: Tara Lilly [facility] Interpretation Summary No comparison study is [...] Garcia MD Transcribed by: MATHEW Technologist: [facility] 06-29-2020 Hospital Discharg e instructions Additional Instructions [...] palpitations fever vomiting or any other concerns [facility] Evaluation + Plan note No data available for this section [facility] Evaluation note No Assessments Infor mation Available [facility] Evaluation note Diagnosis Missed menses , unspecified gestational age Encounter for supervision of normal first in first trimester Nausea Nausea alone [facility] Diagnosis Second trimester state, incidental 13 weeks gestation of [facility] Diagnosis Monochorionic diamniotic twin gestation in second trimester- Primary 16 weeks gestation of documented in this encounter [facility] Diagnosis Monochorionic diamniotic twin gestation in second trimester- Primary [facility] No data available for this section [facility] filedocumented in this encounter [facility] SystemInstructionsNot on filedocumented in this encounter [facility] filedocumented in this encounter [facility] No data available for this section [facility] Advance Directives No Advanced Directives Records Found [...] team informatio n (unrecognized section and content) Center Director Relationship Specialty Start Date End Date Edith Ford MD [address] [place] [address] PCP - General Family Medicine 09/01/22 Center Director Relationship Specialty Start Date End Date Edith Ford MD [address] [place] [id number] PCP - General Family Medicine 09/01/22 Center Director Relationship Specialty Start Date End Date Edith Ford MD [address] [place] [address] PCP - General Family Medicine 09/01/22 Center Director Relationship Specialty Start Date End Date Edith Ford MD [address] [place] [id number] PCP - General Family Medicine 09/01/22 INFORMATION SOURCE (unrecogn ized section and content) DATE CREATED AUTHOR 03/29/2022 [facility] DATE CREATED AUTHOR AUTHOR'S ORGANIZ ATION 05/13/2022 [facility] DATE CREATED AUTHOR AUTHOR'S ORGANIZ ATION 05/09/2024 [facility] EPIC DATE CREATED AUTHOR AUTHOR'S ORGANIZ ATION 05/13/2024 [facility] Reason for Visit (unrecogniz ed section and content) Reason Comments Amenorrhea Reason Comments Routine Visit FOR RECORDS PERTAINING TO PATIENTS WHO ARE [...] BE BASED ON THE PRIMARY CLINICAL RECORDS. [facility] [employer] [facility]. provides no warranty or guarantee of the accuracy or completeness of information in this document.
[2024-05-16 01:12] LABS: AFP Value 43.8 ng/mL (.); Gest. Age on Collection Date 18.9 weeks (.); Gestat. Age Based On Ultrasound (.); Insulin Dep Diabetes No (.); OSBR Risk 1 IN 9917 (.); Results Report (.)
== END 2024-05-14 06:42 | disposition home or self-care (01) ==
LOC: LAB 06:43
PROVIDERS: PCP Family Medicine; Visit Provider Physician Assistant
DX: Z34.92 Encounter for supervision of normal pregnancy, unspecified, second trimester (principal)
CPT/HCPCS: 36415; 82105

== ENCOUNTER 2024-07-16 08:16 | Outpatient (OUT) | payer OTHER, SELFPAY ==
--- OUTSIDE RECORDS SUMMARY | 2024-07-16 08:21 | XMS_ITS | CCD ---
Author Organization [facility] [employer] [facility] [facility] Care Team Providers Care Electrical Troubleshooter Name Role Phone Edith Ford Primary Care Provider Edith Ford Primary Care Physician Maggie Alex Unavailable Unavailable Neal Garcia Consulting Unavailable Shady PROVIDER, Shady Quiroga Referring Unavailable Shady PROVIDER, Shady Quiroga Attending Unavailable Shady PROVIDER, Shady Quiroga Admitting Unavailable Neal Garcia Consulting Unavailable Neal Garcia Consulting Unavailable HARPAL, DR KATHLEEN Primary Care Unavailable FLORA, DR MCKENZIE Admitting Unavailable FLORA, DR MCKENZIE Attending Unavailable PAY ., DR ARAUZ Consulting Unavailable FLORA, DR MCKENZIE Consulting Unavailable MISC, DR KATHLEEN Primary Care Unavailable EILEEN ., JOURDAN Admitting Unavailable EILEEN ., JOURDAN Attending Unavailable TALYA WOODARD Consulting Unavailable SHADY, DR TEAJDA Consulting Unavailable HARPAL, DR KATHLEEN Primary Care Unavailable EILEEN ., JOURDAN Admitting Unavailable EILEEN ., JOURDAN Attending Unavailable EILEEN ., JOURDAN Consulting Unavailable HARPAL, DR KATHLEEN Primary Care Unavailable MAHAMED Ibanez, DR MALLORY Consulting Unavailable MAHAMED ., DR MALLORY Admitting Unavailable MAHAMED Ibanez, DR MALLORY Attending Unavailable SHADY, DR TEJADA Consulting Unavailable HARPAL, DR KATHLEEN Primary Care Unavailable MAHAMED Ibanez, DR MALLORY Admitting Unavailable MAHAMED Ibanez, DR MALLORY Attending Unavailable MAHAMED Ibanez, DR MALLORY Consulting Unavailable HARPAL, DR KATHLEEN Primary Care Unavailable GUSTAVO, DR JESUS Cortez Admitting Unavailable GUSTAVO, DR JESUS Cortez Attending Unavailable GUSTAVO, DR JESUS Cortez Consulting Unavailable SHADY, DR TEJADA Consulting Unavailable HARPAL, DR KATHLEEN Primary Care Unavailable GUSTAVO, DR JESUS Cortez Admitting Unavailable GUSTAVO, DR JESUS Cortez Attending Unavailable GUSTAVO, DR JESUS Cortez Consulting Unavailable HUY QUIÑONES Consulting Unavailable LUIS DONATO Consulting Unavailable Edith Ford MD Primary Care Provider Unavailable Primary Care Provider Unavailabl e Unavailable Primary Care Provider Unavailabl e Jorje Prudencio, Dhruv R. Primary Care Provider [phone] NICHOLE HYDE Attending Unavailable AYAH BENTON Referring Unavailab le JORJE, DHRUV R. Primary Care Unavailable JORJE, DHRUV R. Primary Care Unavailable MARY GUAJARDO Attending Unavailable DOCHEVA, NIKOLINA P. Referring Unavailable NICHOLE HYDE Attending Unavailable JORJE, DHRUV R. Primary Care Unavailable DOCHEVA, NIKOLINA P. Referring Unavailable AYAH BENTON Attending Unavailab barry REEDMEENU Attending Unavailable AYAH BENTON Referring Unavailab le JORJE, DHRUV R. Primary Care Unavailable VANCE, TALYA L Referring Unavailable JORJE, DHRUV R Referring Unavailable JORJE, DHRUV Attending Unavailable TALYA WOODARD Attending Unavailable JORJE, DHRUV Attending Unavailable JORJE, DHRUV R Referring Unavailable JORJE, DHRUV R Referring Unavailable DOCHEVA, NIKOLINA P Attending Unavailable JORJE, DHRUV R Referring Unavailable JORJE, DHRUV R Referring Unavailable DOCHEVA, NIKOLINA P Attending Unavailable VANCE, TALYA L Referring Unavailable JORJE, DHRUV R Referring Unavailable DOCHEVA, NIKOLINA P Attending Unavailable VANCE, TALYA L Referring Unavailable VANCE, TALYA L Referring Unavailable Allergies Allergy Classification Reported Allergen(s) Allergy Type Date of Onset Reaction(s) Facility Theophylline (1 source) Theophylline Drug Allergy 1 [facility] (20 sources) SUMAtriptan; Translations: [sumatriptan] Drug Allergy 7 Pharyngeal swelling (finding), Shortness of breath [facility] (12 sources) Theophylline; Translations: [theophylline] Drug Allergy 5 [facility] (1 source) Theophylline Drug Allergy 9 [facility] (10 sources) Theophyllines; Translations: [THEOPHYLLINES] Drug Intolerance 1 Narciso Apple [facility] (1 source) SUMAtriptan; Translations: [SUMATRIPTAN SUCCINATE] Drug Allergy 7 [facility] Rep[facility] Medications Current Medications Medication Drug Class(es) Dates Sig (Normalized) Sig (Original) acetaminophen 500 mg oral tablet (8 sources) take 2 tablets by mouth every six hours as needed for pain acetaminophen (TYLENOL EXTRA STRENGTH) 500 mg tablet Take 2 tablets (1,000 mg total) by mouth every 6 (six) hours as needed for pain. Active aspirin 81 mg delayed release oral tablet (11 sources) Platelet Aggregation Inhibitor, Nonsteroidal Anti-inflammatory Drug Start: 04-26-2024 take 1 tablet by mouth once aspirin 81 MG EC tablet Take 81 mg by mouth 1 (one) time 04/26/2024 Active cyclobenzaprine hydrochloride 10 mg oral [...] PO Twice daily June 29, 2020 9:12am ferrous sulfate (1 source) take 1 tablet by mouth once daily Ferrous Sulfate (IRON PO) Take 1 tablet by mouth 1 time a day. Active folic acid 1 mg oral tablet (11 sources) Start: 04-26-2024 End: 11-22-2024 take 1 tablet by mouth in the morning folic acid (Folvite) 1 MG tablet Take 1 mg by mouth in the morning. 04/26/2024 11/22/2024 Active lidocaine 0.05 mg/mg medicated patch (1 source) Antiarrhythmic, Amide Local Anesthetic Start: 06-29-2020 apply 1 dose topically once daily Lidocaine Active 1 PATCH TOPICAL Daily June 29, 2020 9:12am leave on most painful area for up to 12 hrs 24 hr metFORMIN hydrochloride 500 mg extended release oral tablet (14 sources) Biguanide Start: 05-08-2024 take 1 tablet by mouth every twenty-four hours at mealtime metFORMIN XR (Glucophage-XR) 500 MG 24 hr tablet Indications: Encounter for weight management TAKE 1 TABLET BY MOUTH IN THE EVENING WITH MEALS, DO NOT CRUSH, CHEW, OR SPLIT 90 tablet 2 05/08/2024 Active Start: 08-07-2023 End: 03-08-2024 take 1 tablet [...] metFORMIN XR (GLUCOPHAGE XR) 500 mg 24 hr tablet Take 1 tablet (500 mg total) by mouth daily with breakfast. Active naproxen 500 mg oral tablet (1 source) Nonsteroidal Anti-inflammatory Drug Start: 12-13-2018 take 1 tablet by mouth twice daily at mealtime Naprosyn 500 mg Tab 500 mg = 1 tab(s), Oral, BID, with food, # 60 tab(s), Refills(s) 0 Start Date: 12/13/18 Status: Ordered omeprazole 20 mg delayed release oral capsule (4 sources) Proton Pump Inhibitor Start: 05-07-2024 End: 09-04-2024 take 1 capsule by mouth before mealtime omeprazole (PriLOSEC) [address] capsule Indications: Gastroesophageal Reflux Disease , Heartburn Take 1 capsule (20 mg) by mouth in the morning. Take before meals. Do not crush or chew.. 30 capsule 3 05/07/2024 09/04/2024 Active ondansetron 4 mg disintegrating oral tablet (11 sources) Serotonin-3 Receptor Antagonist Start: 03-08-2024 End: [...] () 28 mg iron- 800 mcg tablet (8 sources) take 1 tablet by mouth in the morning PNV cmb#95-ferrous fumarate-FA () 28 mg iron- 800 mcg tablet Take 1 tablet by mouth in the morning. Active Vit w/Ae-Gtrxkjirz-MG (PNV PO) (1 source) Vit w/Bk-Gchwalpsw-ZK (PNV PO) Take by mouth. Active Vit-Fe Fumarate-FA ( Vitamins) 28-0.8 MG tablet (8 sources) Start: End: 026 take 1 tablet by mouth once daily Vit-Fe Fumarate-FA ( Vitamins) 28-0.8 MG tablet Indications: , unspecified gestational age , Encounter for supervision of normal first in first trimester Take 1 tablet by mouth Daily 30 tablet 11 03/08/2024 03/08/2025 Active sertraline 100 mg oral tablet (10 sources) Serotonin Reuptake Inhibitor Start: End: take [...] 01-24-2022 Chronic Other complications of (1 source) Obesity complicating , unspecified trimester; Translations: [Obesity complicating , unspecified trimester] Onset: 06-14-2024 Chronic Other complications of (6 sources) 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 ; Translations: [Other mental disorders complicating , unspecified trimester] Onset: 04-26-2024 04-26-2024 Episodic Other complications of (11 sources) heart echogenicity on obstetric ultrasound scan; Translations: [Abnormal ultrasonic finding on screening of mother] Onset: 05-27-2024 05-27-2024 Episodic Other complications of (1 source) Abnormal ultrasonic finding on screening of mother; Translations: [Abnormal ultrasonic finding on screening of mother] Onset: 05-27-2024 Episodic Other complications of (1 source) Other [...] 03-15-2022 Chronic Other and delivery including normal (20 sources) ; Translations: [Encounter for supervision of normal , unspecified, unspecified trimester] Onset: 04-26-2024 03-08-2024 Episodic Other screening for suspected conditions (not mental disorders or infectious disease) (3 sources) Patient encounter status; Translations: [Encounter for screening for diabetes mellitus] Onset: 04-26-2024 06-26-2024 Episodic Other upper respiratory disease (1 source) [...] 04-26-2024 Episodic Residual codes; unclassified (1 source) Gestation period, 20 weeks; Translations: [20 weeks gestation of ] 05-27-2024 Episodic Residual codes; unclassified (4 sources) Gestation period, 24 weeks; Translations: [24 weeks gestation of ] 06-21-2024 Episodic Residual codes; unclassified (2 sources) Gestation period, 25 weeks; Translations: [25 weeks gestation of ] 06-26-2024 Episodic Residual codes; unclassified (1 source) 24 weeks gestation of ; Translations: [24 weeks gestation of ] Onset: 07-05-2024 Episodic Residual codes; unclassified (1 source) 16 weeks gestation of ; Translations: [16 weeks gestation of ] Onset: 05-10-2024 Episodic Spondylosis; intervertebral disc disorders; other back [...] EXPOS COVID-19] Onset: 02-25-2022 Unclassified (1 source) No additional problems on file Unclassified (2 sources) Monochorionic Twins; Translations: [Monochorionic Twins] Onset: 05-31-2024 Unclassified (2 sources) Monochorionic/Diamniot ic Twins; Translations: [Monochorionic/Diamnio tic Twins] Onset: 05-31-2024 Unclassified (1 source) [place] Twins Onset: 06-21-2024 Past or Other Problems Problem Classification Problem Date Documented Da te Episodic/Chronic Conditions associated with dizziness or vertigo (1 source) Dizziness and giddiness; Translations: [DIZZINESS AND GIDDINESS] Onset: 12-01-2021 Episodic Other aftercare (1 source) Other residential (current) drug therapy; Translations: [OTH COMMUNITY ARTS OFFICER CURRENT DRUG THERAPY] Onset: 01-24-2022 Episodic Other aftercare (1 source) long term care pharmacist (current) use of oral hypoglycemic drugs; Translations: [COMMUNITY ARTS OFFICER USE ORAL HYPOGLYCEMIC DX] Onset: 12-22-2021 Episodic [...] NEGATED: Highlighted row has been ruled out!Unclassified (8 sources) No known active problems 06-29-2023 Results Test Name Value Interpretation Reference Range Facility Urinalysis macro (dipstick) panel (U)on 06-26-2024 Bilirubin, UA Negative Negative - 4(70) +++ mg/dL [facility] Blood, UA Negative Negative - 50 Duane/mcL [facility] Clarity, UA Clear [facility] Color, UA Yellow [facility] Glucose, UA Negative Negative - 1999(110) ++++ mg/dL [facility] Interpretation and review of laboratory results [facility] Ketones, UA Negative Negative - 160(16) ++++ mg/dL [facility] Leukocytes, UA Trace Negative - 500+++ Belinda/mcL [facility] Nitrite, UA Negative Negative - Positive [facility] pH, UA 7.5 5 - 9 [facility] Protein, UA Negative Negative - 1999(20) ++++ mg/dL [facility] Spec Grav, UA 1.02 1 - 1.03 [facility] Urobilinogen, UA 0.2 0.2 - 12 mg/dL [facility] ECHOCARDIOGRAM FETALon 05-31 ECHOCARDIOGRAM [facility] [address] [place] [id number] ECHOCARDIOGRAM REPORT Name: JUAN DIEGO FULTON : 2000 ALT. ID: Age: 23 years Study Date: 05/31/2024 12:45:12 PM Patient Class: Outpatient Patient Location: [facility] Referring Physician: [facility] Diagnosing Physician: [id number] Meenu Reed MD Court Security Officer: Marita Ko [facility] Procedure type: Complete [id number], Complete Doppler and Spectral Doppler-50421, Color Doppler-54676, Umbilical Doppler-40510 and Multiple Gestation (Twins). Reason for test: Assess cardiac anatomy, function and Doppler velocimetry. 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 Weight: 0.41 kg Fetus B Gestational age: 21w2d Assigned DORON: 10/09/2024 Est. Weight: 0.34 kg FETUS A SUMMARY: 1. Normal cardiac anatomy. 2. Normal right ventricular size and systolic function. 3. Normal left ventricular size and systolic function. 4. Normal heart rate and rhythm. FETUS B SUMMARY: 1. Four chambered heart with patent inflow and outflow valves and antegrade flow across the ductal and aortic arches. 2. Normal right ventricular size and systolic function. 3. Normal left ventricular size and systolic function. 4. Normal heart rate and rhythm. FINDINGS FOR FETUS A Position: Cephalic. Cardiac Size: Normal cardiac size. Heart Rate and Rhythm: Normal 1:1 AV conduction at a normal rate. Heart rate is 144 bpm. Circulation: Normal venous Doppler: hepatic veins, ductus venosus and umbilical vein. Flow in the umbilical artery is normal. Segmental Cardiotype, Cardiac Position, and Situs: Normal cardiac anatomy. {S,D,S}. Levocardia. Atrioventricular concordance and ventriculo-arterial concordance. Visceral situs solitus. Atrial situs solitus. D ventricular loop. Normal position of the great arteries. Left-sided stomach. Systemic Veins: Normal systemic venous connections. Pulmonary Veins: At least one pulmonary vein returns to the left atrium. Atria: Normal right atrial size. Normal left atrial size. Normal flap valve of septum primum seen in left atrium. 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 Mitral Valve: Normal mitral valve. No mitral valve regurgitation. Tricuspid Valve: Normal tricuspid valve. No tricuspid valve regurgitation. AV Canal/Complex Inlet/Single Ventricle: The crux of the heart is normal. Left Ventricle: Normal left ventricular size and systolic function. Right Ventricle: Normal right ventricular size and systolic function. VSD: No evidence of ventricular septal defect. Left Ventricular Outflow Tract and Aortic Valve: No left ventricular outflow tract obstruction. No aortic valve regurgitation. Right Ventricular Outflow Tract and Pulmonary Valve: No right ventricular outflow tract obstruction. No pulmonary valve regurgitation. Conotruncal Anatomy: Normal conotruncal anatomy. Aorta: No evidence of aortic coarctation. Pulmonary Arteries: Normal main pulmonary artery. Ductus Arteriosus: The ductus arteriosus flow is antegrade (PA to Ao). Pericardium: No pericardial effusion. Pleural Space: No pleural effusion. Hydrops: No hydrops. FINDINGS FOR FETUS B Position: Breech. Cardiac Size: Normal cardiac size. Heart Rate and Rhythm: Normal 1:1 AV conduction at a normal rate. Heart rate is 140 bpm. Circulation: Normal venous Doppler: hepatic veins, ductus venosus and umbilical vein. Flow in the umbilical artery is normal. Segmental Cardiotype, Cardiac Position, and Situs: Levocardia. Left-sided stomach. Systemic Veins: Systemic venous return is not well visualized. Pulmonary Veins: Pulmonary venous return is not well visualized. Atria: Normal right atrial size. Normal left atrial size. Normal flap valve of septum primum seen in left atrium. 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 Mitral Valve: No mitral valve regurgitation. Tricuspid Valve: No tricuspid valve regurgitation. Left Ventricle: Normal left ventricular size and systolic function. Right Ventricle: Normal right ventricular size and systolic function. VSD: Suboptimal visualization of ventricular septal anatomy. Left Ventricular Outflow Tract and Aortic Valve: No left ventricular outflow tract obstruction. No aortic valve regurgitation. Right Ventricular Outflow Tract and Pulm (more content not included)... Normal [facility] Urinalysis macro (dipstick) panel (U)on 04-09-2024 Bilirubin, UA Negative Negative - 4(70) +++ mg/dL [facility] Blood, UA Negative Negative - 50 Duane/mcL [facility] Clarity, UA Clear [facility] re Color, UA Yellow [facility] Glucose, UA Negative Negative - 1999(110) ++++ mg/dL [facility] Interpretation and review of laboratory results Abnormal [facility] re Ketones, UA Negative Negative - 160(16) ++++ mg/dL [facility] Leukocytes, UA Positive Negative - 500+++ Belinda/mcL [facility] Comment on above: large Nitrite, UA Negative Negative - Positive [facility] pH, UA 7 5 - 9 [facility] Protein, UA Trace Negative - 1999(20) ++++ mg/dL [facility] Spec Grav, UA 1.02 1 - 1.03 [facility] Urobilinogen, UA 0.2 0.2 - 12 mg/dL [facility] ALL CBC WITH AUTO DIFFon BASOPHILS ABSOLUTE AUTO 0 [facility] Basophils/100 WBC (Bld) 0.3 % 0.2 - 2.0 % [facility] Eosinophils/100 WBC (Bld) 0.9 % 0.9 - 7.0 % [facility] Erythrocyte distribution width (RBC) [Ratio] 14.1 % 11.0 - 15.0 % [facility] IMMATURE GRANULOCYTES ABS AUTO 0.05 High [facility] Immature granulocytes/100 WBC (Bld) 0.4 % 0.0 - 0.5 % [facility] Interpretation and review of laboratory results Abnormal [facility] re LYMPHOCYTES ABSOLUTE AUTO 2.6 [facility] Lymphocytes/100 WBC (Bld) 18.5 % Low 20.5 - 60.0 % [facility] MCH (RBC) [Entitic mass] 25.9 pg Low 26.7 - 34.0 pg [facility] MCHC (RBC) [Mass/Vol] 32.7 g/dL 29.9 - 35.2 g/dL [facility] MCV (RBC) [Entitic vol] 79.2 fL Low 81.0 - 99.0 fL [facility] MONOCYTES ABSOLUTE AUTO 0.6 [facility] Monocytes/100 WBC (Bld) 4 % 1.7 - 12.0 % [facility] NEUTROPHILS ABSOLUTE AUTO 10.7 High [facility] Neutrophils/100 WBC (Bld) 75.9 % High 43.0 - 75.0 % [facility] Platelet mean volume (Bld) [Entitic vol] 11.7 fL 9.5 - 13.5 fL [facility] TB EO # 0.1 [facility] TB PLT 302 [facility] TB RBC 4.56 [facility] TB WBC 14.1 High [facility] CBC without diffon Rbc Mcv (Fl) By Automated Count 79.2 [facility] - Hematology and Cell countson 03-15-2024 Hematocrit (Bld) [Volume fraction] 36.1 % [facility] Hemoglobin (Bld) [Mass/Vol] 11.8 g/dL [facility] No Panel Informationon 03-15 [facility] Rubella IGG immune statuson 03-15-2024 Rubella immune IgG 0.9 [facility] Syphilis Total(Unknown Syphi lis Status)on 03-15-2024 Syphilis Non-Reactive [facility] Type and screenon 03-15-2024 Abo/Rh(D) Negative [facility] HCG ( test) Ql (U)o n 03-08-2024 Interpretation and review of laboratory results Abnormal [facility] re Preg Test, Ur Positive Negative [facility] Urinalysis macro (dipstick) panel (U)on 03-08-2024 Bilirubin, UA Negative Negative - 4(70) +++ mg/dL [facility] Blood, UA Negative Negative - 50 Duane/mcL [facility] Clarity, UA Clear [facility] re Color, UA Yellow [facility] Glucose, UA Negative Negative - 1999(110) ++++ mg/dL [facility] Interpretation and review of laboratory results Abnormal [facility] re Ketones, UA Negative Negative - 160(16) ++++ mg/dL [facility] Leukocytes, UA Moderate Negative - 500+++ Belinda/mcL [facility] Nitrite, UA Negative Negative - Positive [facility] pH, UA 7 5 - 9 [facility] Protein, UA Negative Negative - 1999(20) ++++ mg/dL [facility] Spec Grav, UA 1.015 1 - 1.03 [facility] Urobilinogen, UA 0.2 0.2 - 12 mg/dL [facility] Referrals Officeon 3 Referrals Office [id number] 0 [id number]# 1.00CD:127 Normal [facility] CULTURE URINEon 03-13-2022 CULTURE URINE Culture Observations : HEAVY GROWTH OF MIXED GENITAL TING. NO POTENTIAL PATHOGENS SEEN. Normal [facility] Comment on above: Performed By: #### C MP #### [facility] [address] [address] [address] Paz Burk ER URINE PROFILEon 3 Bilirubin Ql (U) Negative Normal NEGATIVE [facility] Comment on above: Performed By: #### P REGU, UMICRO, ERUR #### [facility] [address] [address] [address] Paz Burk Clarity (U) CLEAR Normal CLEAR [facility] Comment on above: Performed By: #### P REGU, UMICRO, ERUR #### [facility] [address] [address] [address] Paz Burk Color (U) LT. YELLOW Normal YELLOW [facility] Comment on above: Performed By: #### P REGU, UMICRO, ERUR #### [facility] [address] [address] [address] Paz POST A micrscopic examination will be performed if indicated. Normal [facility] Comment on above: Performed By: #### P REGU, UMICRO, ERUR #### [facility] [address] [address] [address] Paz Burk Glucose Ql (U) Negative Normal NEGATIVE [facility] Comment on above: Performed By: #### P REGU, UMICRO, ERUR #### [facility] [address] [address] [address] aPz Burk Hemoglobin Ql (U) Negative Normal NEGATIVE [facility] Comment on above: Performed By: #### P REGU, UMICRO, ERUR #### [facility] [address] [address] [address] Paz Burk Ketones Ql (U) Negative Normal NEGATIVE [facility] Comment on above: Performed By: #### P REGU, UMICRO, ERUR #### [facility] [address] [address] [address] Paz Burk LEUKOCYTES MODERATE Abnormal NEGATIVE [facility] Comment on above: Performed By: #### P REGU, UMICRO, ERUR #### [facility] [address] [address] [address] Paz Burk Nitrite Ql (U) Negative Normal NEGATIVE [facility] Comment on above: Performed By: #### P REGU, UMICRO, ERUR #### [facility] [address] [place] [address] Dr. Paz Burk pH (U) 6.0 [pH] Normal 5-9 [facility] Comment on above: Performed By: #### P REGU UMICRO, ERUR #### [facility] [address] [address] [address] Paz Burk SPEC GRAVITY 1.025 Normal 1.005-<=1.025 [facility] Comment on above: Performed By: #### P REGVERONICA PhamICRO, ERUR #### [facility] [address] [address] [address] Paz Burk UA PROTEIN Negative Normal NEGATIVE/ TRACE [facility] Comment on above: Performed By: #### P REGU UMICRO, ERUR #### [facility] [address] [address] [address] Paz Burk UR MICRO IND INDICATED Normal [facility] Comment on above: Performed By: #### P REGU UMICRO, ERUR #### [facility] [address] [place] [address] Dr. Paz Burk Urobilinogen Qn (U) 0.2 {Ara'U}/dL Normal 0.2 - 1. 0 [facility] Comment on above: Performed By: #### P REGU, UMICRO, ERUR #### [facility] [address] [address] [address] Paz Burk URon 03-13-2022 , QUAL Negative Normal NEGATIVE [facility] Comment on above: Performed By: #### P REGU, UMICRO, ERUR #### [facility] [address] [address] [address] Paz Burk URINE MICROSCOPIC ONLYon BACTERIA MODERATE Abnormal NONE SEEN [facility] Comment on above: Performed By: #### P REGU, UMICRO, ERUR #### [facility] [address] [address] [address] Paz Burk Bacteria identified Cx Nom (U) INDICATED Normal [facility] Comment on above: Performed By: #### P REGU, UMICRO, ERUR #### [facility] [address] [address] [address] Paz Burk CAST NONE SEEN Normal NONE SEEN [facility] Comment on above: Performed By: #### P REGU, UMICRO, ERUR #### [facility] [address] [address] [address] Paz Burk Crystals LM Nom (Urine sed) NONE SEEN Normal NONE SEEN [facility] Comment on above: Performed By: #### P REGU, UMICRO, ERUR #### [facility] [address] [address] [address] Paz Burk Epithelial cells LM Ql (Urine sed) MODERATE Abnormal NONE SEEN /RARE [facility] Comment on above: Performed By: #### P REGU, UMICRO, ERUR #### [facility] [address] [address] [address] Paz Burk MUCOUS TRACE Abnormal NONE SEEN [facility] Comment on above: Performed By: #### P REGU, UMICRO, ERUR #### [facility] [address] [address] [address] Paz Burk RBC 0-2 Normal 0-2 [facility] Comment on above: Performed By: #### P REGU, UMICRO, CHANDRAKANTR #### [facility] [address] [place], [place] [address] Dr. Paz Burk WBC 50-75 Abnormal NONE SEEN [facility] Comment on above: Performed By: #### P PEGGY HERNANDEZ, CHANDRAKANTR #### [facility] [address] [place], [place] [address] Dr. Paz Burk Coding Summary.on 03-04-2022 Coding Summary. CD:[id number] G h0bWw+PGhlYWQ+EZ9JXUQ dS32njKTkjE1YM7kFKZ0G EZXMOEBHOP5LHK4otJE5L AcyS6AjvpSf XbzxeTOtBC24VTr0YZB8a LlcJCrobO7syFEaH4m1Mt AfKR79zS56UObtUOQiBzW 3LjZpbjsgbWFy R8umYrTpwCTsXtj+PHRhY mxlIHdpZHRoPScxMDAlJy EerKypFT4qKq1yFXFkTAE vbGxhcHNlOiBj x4awCNQoBNhwHB0rhBxdI 6CgeAQ4BIXxc5y2Qa17gN I+ZMYwOBW2iHkbNGami78 4DxCja8jzORB2 iJPcSEgvHCI2P80xo6F1D DYvTVWeVMM4nSB3dY6klD hpnyrmE4PxpXLlGxQ0CZZ 5qVQzlY9xxToi ymjbqP4sPja+A10CKW0TM ICBAP8RSde0X7LdOjhjqN I+WR33TQBvPV97uRZybCK gw6jdcUk9DiUs NITwHJN0eOypNUscu4EoI WZcZ11xxCRkn4N1MGQayK cvuBOoJaLmgKI4qA1oUBk dpxvtq4upzlwf Rxjuk7xjtq52nK95Y34eR NnsXFBzPXX2WKQpDXEqiC otee1jxF0wTb4+XMums0q qe1raeLa2RqFg ZDVtumLfbNbwYIN5y1HsO u42J5QvkUkbj5SdNug7ie 02rZMze3W1qHP6WMlxHOO xnQ0lJLzcKhE0 ABTwPqEozU37vGDuXIkiP b7lgNkrvAbbQB2lVRFqiw fsWBGxjL9kUIUnfMZmbXf sIX8jAKXotjtw j547OcGzXZO2SSUanBZuH 7KnkR3mElTyDNYcDMWqF3 BpdPKzJJzzQ064HDmrBlQ 2SFTallUpY3Rl UZNmhAxaSoO2l3B3Yr4Nl 6KsscigYVU4NOfpDCLfPt J0JlQsKxL7O5QwPxk5TYV rqPbsMH3xY3Yf QVCaqhdxzfvzpNJ2XVQkO DCdjP04nIMmPDklFw7bx9 K8u548RBMgFTDjrI36Dg2 udDogMTBwdCBU xP2qzbkra2wishwhIeLiZ MGsUVe1ZSf3WGBrrWswVf RnQIP9JrU2BRX9eLYziV7 gwDvhzqhyaC2q Oyc+R51unF7bXPY6QIG7c jvhJWGfyuKsPE73RR29F1 RyPjwvdGFibGU+PGRpdiB spBanAL5fRtAy x7isd1KmVGnjU6HxZKEeQ XqjTbm2KJVdFWL3oHB9wQ 0bFRZdBJjhc9R5vJT2R1T kboOypu8nb9um AUHgIRpsW43kzKRbw8P1P AOxiJL1BETscAyoSqYlcW 93Oyc+CJLksWyry8UlBje tc7wgr0gipYa8 YoAkOPOygwHcyOesLBK3y 4BnDl12U75jDGhsIJPmWP KtNQQuPOAtpRmlhu2feM1 wIi8+PGNvbCB3 eXG3nZ0xFORuScS1DNgxK 839FfVzkBXzAmzkh3nmk8 nyeKq5QqVhEUPmprEtjOr eONK3q1DzFa37 A30zDTkjOBKjSLSvTHDcM YBsuWctaf4tqH3iKe3+PC 6ju5lkdc90zZ16mNW+PHR rJMW5nUklKKbx MJOnkD2gVQwyTiT6BCHzA pLoyC97pMXeQEjyRt7srH gitHerEH1iKRLojfixw26 5OaVfn2jmXFZa lSJzYRbbNEQ3B21wv3K3Z EEdWPMwTRD9oDT9iL8kgQ lnbjogbGVmdDsgdmVydGl nCRubBBqeW791 IHRvcDsnPlBhdGllbnQgT vHeFUf1B4PhEja1HVJocW bjVU4odQIzLVmaFh9krXu umNhoBA0nNHDn vfdhs230GuQdq9zmNOJgw PSeBQkoSQJ5I09oe7A3JR ChCAHgJEY7wKF8jV9rhMg nbjogbGVmdDsg izMmtJzxJTkaJHedM655Y HRvcDsnPkJpcnRoIERhdG Q8UV57EC18uPYqp0C9aPG 3S5QxCWZikyfg xcisaIM8NUJiFEUxmF43X o1klAxaFu1bEFEkJQJ4GX EguGRfK8MdcT2mGiClEMZ kWOTzK4WeyYHv TKqqK067DWqdBzN4JMLnz aQxJ4WaYWVceNezDqX0i2 A5Aj2CG0Y4MN25AX69iJS dv7U2hYH5X2Yd PQZgqgkouzulsIK8XUNoQ XUunI96Bp4jdQspTq3jQX SjWOJ1KQZyjSXlA5ZwnE6 yOiAjMDAwMDAw B8BvtATtVMpaJ608CKhsR uR9KLYcbqTkS2OyCBQnxG vuVpL3u1G0Tz0FLIp5GG5 7NI03tOLjz2D5 aBX1J9RjIUKkroffrargh BS0RJNpQYCnaR34Eh6tyW jhVv4fKGVhYSH4FKMikBU jM8GtrC0pQuUt BYYhDHRnA1MdhJAkGVtaA 895KLhoHeH7FRBnyyXhZ4 XpDELgyCpyXuM3l6Q3Cg3 UEBRwTW88DGQ4 lFI2PL18MG10M5EmAidcf GFibGU+PHRhYmxlIHdpZH RoPScxMDAlJyBzdHlsZT0 vMn8eLDYyPKZw wMnmiQFdBtLzb1niWBImO SjdDM0lcBoeP7ObwMN0XI Wsd1u7Uu56D45wZ4PboVK +PUYwpWM2jRQ2 rJ7wAsPvDfQ9QMaaM046M zUnxMRdQlaby3fda1secV y9NaK9TFIrukHhlJrsFLD 7q8VcIy23W17j IHdpZHRoPSIxNSUiIHZhb Warke8vsY6gJz3+PGNvbC N7jXB3xA2oJzNbXrN2ZRk iV197RbBjuCZk Uoymb2kxz2aeiTt8LzUzY VHudqKdgYloPBS9q1QhJy 06C6WadJxll4XaYvh6vz0 6eZGui2O1nRK1 V5ZrZISnmdcrrIUanVgrD I8cNJJfvgxyDVRsgU2qOO JeF8j1NtXjZnA2JMfkE9N ywpJ8MGXmmTFl NUzxIYV1I88cl6C6SVNrY TJbVOE1sXE0tP3lzJxcnk ogbGVmdDsgdmVydGljYWw aPWooW877NBKo yFopBHCtpU6zSMBzyUJyj AilWC9wJTOevubpXaNJIJ 8hDLvVSo7PMgJwYriozVQ +VXGvCCD5sOjm HQqyEBTpyS4wCUJtQ8c4Q jUyTwC6NRqjW4VsYGTvgj aoCb32dR4yEmJoWeN6INq cM3TjbdG1DAIv tONeJVwuEFI9A95ta6I7H KCdXKIlQCD9oVF4zY3bxB lnbjogbGVmdDsgdmVydGl fJRrfRMrbQ100 MKBpzDcgIbU0WoA3PgF8M Gb1C2AbSij3AKMakOxrHA 5kvPTzNYknSf6whZtfkDe cSK5xETGpwynm QKQdxR9uAYRqcFOaeXebU F0hGEHleamww736CzRyUE Z7UMRjgZOqZ2QqwF6rXdN fQBIjFBQsC2Hb eODqJTspW650NZyoJxC2Y YWjdgZiB4VbFSVofRpgGw E5b3R3Rm7jEtDMDQZobsb vdGQ+PHRkIHN0 wEprBAkbDBYdzP0fGEHjB 6z7JiAdAwT1JJwwL3XbKB DyzzwbIk49iX5jLmCdDxB 3EJviZ3IquxS7 ELZlkXWkGJtpVGO8K80ko 9Z1EXFhEEDzVVH6uUK2pQ 1hbGlnbjogbGVmdDsgdmV ydGljYWwtYWxp J528RCInkWvoDaMgdOAhG TwvdGQ+QOGyWSD0gIqpCW chTILyxL8tHESwJ0x9KsO nVvV5NJhxC5Ff MMMwkqrsIg40mE0qOrGcS gR2JKriM3RulkO9SRYcoZ QzZIctRZI0P38ru3L6LCV hETMoJKI0uNQ8 eN3xoUciupjivVQlrMedw cUmgUwkKNybSVxdB649SF AwpSztGs81tAVorAbkedK 7E7PyDrfgpGN+ VJ03QKZmLF65kYTujCVaz 4rotZu3OmLvZKStOJM8sB rhEDlur1FlPQWeP63jvFV cp9T2QMPssMcg fTRkDpBayXT1eC2rJIyas ayaj3uxpovxBhwln0canv 58yH44B15aHVjbVLFiTRE zMCUiIHZhbGln en6xlJ8cEn8+FZHhuCZ3o JQ0cR2vUmWwDhK6STcpH5 15JnOuwINtCokjp8zgy8l qaRg6FqMeFFEt nvUkmSxdYKK1e1WeOu44F 29sIHdpZHRoPSIyMCUiIH SnbCnpqe7wkF1rLj3+PC9 rf7meyu24uH85 dHI+OYTjYNO6yIfyJXmnD TXenS0pRJhfOuQ6ARZaBl GddN15vTBuIZrjRs4pnYh owItmAT9xFESj opbqu266VaJri3leVYKcc ZDdUGncUVV4X96vu0I7EL PcIPFsZXG5ySK2hP2ceOs nbjogbGVmdDsg fjDevJseJCozDWsnP360E WHpvErnOlHrqWTwF3akei QLOT1lXkvgwYF+PHRkIHN 0eWxlPSdwYWRk cX7xBJHkK1h0DoNdFjY8R TmhD3QghxL2AJQqnCWcKP OpbAZMjZ5btxxgu2evlrz gIzAwMDAwMDt0 TDi0DPTwnJrmAvWsTRB4T lQ6PBK6qNPgzO6wpRsghm camC1kRos+RklOOjwvdGQ +MIZvMLI6xZfr XOpxYBKwnG7dZQFtV9p4E aXrCaM2ERfcB9WdxeZ1FP PvvMCbGPLotZDSmA6ebyn dm7mnnwlkLiIx CNBnLEn6MYr3PVMvfJbpL zTdRGL6EfG8FPZ1qORfkT 3erQzzdgcdeS9vSrh+TVJ OOjwvdGQ+PHRk GYO9nFzxVLdzMNSvdG9oO QWbV7l4BnHoYhF3CWxsV9 SlhxS5LOUjcEWtLPYojGS ZjE7oybocd0dr afpmIfQgMRBbECl5OCv7F UFcdKxuGvMuJDE7NtD8KD L5zALffN6adSvvkyjkyO4 wOyc+NKJ9LXA1 QJ63LK67Z0GzUysegRDob +PHRhYmxlIHdpZHRoPS wbUSFiFkGxpEiqEJ9jUp2 yZGVyLWNvbGxh cHNl (more content not included)... Normal [facility] Consent for Treatmenton Consent for Treatment [id number]:127 Normal [facility]on 01-28 SARS-CoV-2 (COVID-19) RNA IGNACIO+probe Ql (Unsp spec) Not detected Normal NOT DETECTED [facility] Comment on above: Result Comment: This test is not yet approved or cleared by the [place] FDA. When there are no FDA-approved or cleared tests available, and other criteria are met, FDA can make tests available under an emergency access mechanism called an Emergency Use Authorization (EUA). The EUA for this test is supported by the Acquisition Associate of Health and Human Service's (HHS's) declaration [...] SARS-CoV-2. Performed By: #### C VDTBH #### [facility] [address] [place] [address] Dr. Paz Burk INFLUENZA A AND B AGon 02-23 [facility] SEE BELOW Normal [facility] Comment on above: Result Comment: Nega tive for Flu A protein angiten. Infection due to Flu A cannot be ruled out. Flu A angiten in the sample may be below the detection limit of the test. Performed By: #### I NFLUAB #### [facility] [address] [place] [address] Dr. Paz Burk [facility] SEE BELOW Normal [facility] Comment on above: Result Comment: Nega tive for Flu B protein antigen. Infection due to Flu B cannot be ruled out. Flu B antigen in the sample may be below the detection limit of the test. Performed By: #### I NFLUAB #### [facility] [address] [place] [address] Dr. Paz Burk INFLUENZA A AG Negative Normal NEGATIVE SEE COMMENT [facility] Comment on above: Performed By: #### I NFLUAB #### [facility] [address] [place] [address] Dr. Paz Burk INFLUENZA B AG Negative Normal NEGATIVE SEE COMMENT [facility] Comment on above: Performed By: #### I NFLUAB #### [facility] [address] [place] [address] Dr. Paz Burk Physician Orderon 02-14-2022 Physician Order [id number]:127 Normal [facility] BNPon 01-20-2022 Natriuretic peptide B (Bld) [Mass/Vol] 125.0 pg/mL Normal <=450.0 [facility] Comment on above: Performed By: #### C VDTBH #### [facility] [address] [place] [address] Dr. Paz Burk CBC AUTO DIFFon 01-20-2022 BASO # 0.0 103/ul Normal 0.0-0.1 [facility] Comment on above: Performed By: #### C BC #### [facility] [address] [place] [address] Dr. Paz Burk Basophils/100 WBC (Bld) 0.2 % Normal 0.2-2.0 [facility] Comment on above: Performed By: #### C BC #### [facility] [address] [place] [address] Dr. Paz Burk EO # 0.2 103/ul Normal 0.0-0.7 [facility] Comment on above: Performed By: #### C BC #### [facility] [address] [place] [address] Dr. Paz Burk Eosinophils/100 WBC (Bld) 1.2 % Normal 0.9-7.0 [facility] Comment on above: Performed By: #### C BC #### [facility] [address] [place] [address] Dr. Paz Burk Erythrocyte distribution width (RBC) [Ratio] 14.4 % Normal 11.0-15.0 [facility] Comment on above: Performed By: #### C BC #### [facility] [address] [place] [address] Dr. Paz Burk Hematocrit (Bld) [Volume fraction] 37.3 % Normal 36.0-48.0 [facility] Comment on above: Performed By: #### C BC #### [facility] [address] [place] [address] Dr. Paz Burk Hemoglobin (Bld) [Mass/Vol] 12.3 g/dL Normal 12.0-16.0 [facility] Comment on above: Performed By: #### C BC #### [facility] [address] [place] [address] Dr. Paz Burk IG # 0.07 10e3/ul Critically high 0.00-0.03 [facility] Comment on above: Performed By: #### C BC #### [facility] [address] [place] [address] Dr. Paz Burk IG % 0.5 % Normal 0.0-0.5 [facility] Comment on above: Performed By: #### C BC #### [facility] [address] [place] [address] Dr. Paz Burk LYMPH # 3.0 103/ul Normal 1.2-3.8 [facility] Comment on above: Performed By: #### C BC #### [facility] [address] [place] [address] Dr. Paz Burk Lymphocytes/100 WBC (Bld) 21.2 % Normal 20.5-60.0 [facility] Comment on above: Performed By: #### C BC #### [facility] [address] [place] [address] Dr. Paz Burk MANUAL DIFF REQ NO Normal [facility] Comment on above: Performed By: #### C BC #### [facility] [address] [place] [address] Dr. Paz Burk MCH (RBC) [Entitic mass] 26.8 pg Normal 26.7-34.0 [facility] Comment on above: Performed By: #### C BC #### [facility] [address] [place] [address] Dr. Paz Burk MCHC (RBC) [Mass/Vol] 33.0 g/dL Normal 29.9-35.2 [facility] Comment on above: Performed By: #### C BC #### [facility] [address] [place] [address] Dr. Paz Burk MCV (RBC) [Entitic vol] 81.3 fL Normal 81.0-99.0 [facility] Comment on above: Performed By: #### C BC #### [facility] [address] [place] [address] Dr. Paz Burk MONO # 0.7 103/ul Normal 0.3-0.8 [facility] Comment on above: Performed By: #### C BC #### [facility] [address] [place] [address] Dr. Paz Burk Monocytes/100 WBC (Bld) 4.8 % Normal 1.7-12.0 [facility] Comment on above: Performed By: #### C BC #### [facility] [address] [address] [address] Paz Burk NEUT # 10.3 103/ul Critically high 1.4-6.5 [facility] Comment on above: Performed By: #### C BC #### [facility] [address] [place], [place] [id number] Dr. Paz Burk Neutrophils/100 WBC (Bld) 72.1 % Normal 43.0-75.0 [facility] Comment on above: Performed By: #### C BC #### [facility] [address] [place] [address] Dr. Paz Burk Platelet mean volume (Bld) [Entitic vol] 11.2 fL Normal 9.5-13.5 [facility] Comment on above: Performed By: #### C BC #### [facility] [address] [place] [address] Dr. Paz Burk PLT 277 103/ul Normal 150-450 [facility] Comment on above: Performed By: #### C BC #### [facility] [address] [place] [address] Dr. Paz Burk RBC 4.59 106/ul Normal 4.20-5.40 [facility] Comment on above: Performed By: #### C BC #### [facility] [address] [place] [address] Dr. Paz Burk WBC 14.3 103/ul Critically high 4.0-11.0 [facility] Comment on above: Performed By: #### C BC #### [facility] [address] [place] [address] Dr. Paz Burk CTA CHEST WO W [...] LUIS DONATO Date: 2022-01-20 03:10 Normal [facility] Covid-19 PCR ([facility])on 12-29 SARS-CoV-2 (COVID-19) RNA IGNACIO+probe Ql (Unsp spec) Not detected Normal NOT DETECTED [facility] Comment on above: Result Comment: When [...] for this test is supported by the Acquisition Associate of Health and Human Service's declaration that [...] longer be used). Performed By: #### [facility] #### [facility] [address] [place] [address] Dr. Paz NovoaDIMERon 01-20-2022 D-DIMER 0.40 mg/L FEU Normal <=0.59 [facility] Comment on above: Performed By: #### C MP #### [facility] [address] [place] [address] Dr. Paz Burk D-DIMER COMMENTS SEE BELOW Normal [facility] Comment on above: Result Comment: Incr eases [...] hospitalization. Performed By: #### C MP #### [facility] [address] [place] [address] Dr. Paz Burk PREG HCG QUALon 01-20-2022 , QUAL Negative Normal NEGATIVE [facility] Comment on above: Performed By: #### C MP #### [facility] [address] [place] [address] Dr. Paz Burk PROF 14(COMP METB)on 022 Albumin [Mass/Vol] 3.3 g/dL Critically low 3.4-5.0 [facility] Comment on above: Performed By: #### C VDTBH #### [facility] [address] [place] [address] Dr. Paz Burk Albumin/Globulin [Mass ratio] 0.8 {ratio} Normal [facility] Comment on above: Performed By: #### C VDTBH #### [facility] [address] [place] [address] Dr. Paz Burk ALP [Catalytic activity/Vol] 95 U/L Normal 46-116 [facility] Comment on above: Performed By: #### C VDTBH #### [facility] [address] [place] [address] Dr. Paz Burk ALT [Catalytic activity/Vol] 15 U/L Normal 14-59 [facility] Comment on above: Performed By: #### C VDTBH #### [facility] [address] [address] [address] Paz Burk Anion gap [Moles/Vol] 10.4 mmol/L Normal [facility] Comment on above: Performed By: #### C VDTBH #### [facility] [address] [address] [address] Paz Burk AST [Catalytic activity/Vol] 10 U/L Critically low 15-37 [facility] Comment on above: Performed By: #### C VDTBH #### [facility] [address] [place] [address] Dr. Paz Burk Bilirubin [Mass/Vol] 0.1 mg/dL Critically low 0.2-1.0 [facility] Comment on above: Performed By: #### C VDTBH #### [facility] [address] [place] [address] Dr. Paz Burk Calcium [Mass/Vol] 8.8 mg/dL Normal 8.5-10.[address] [facility] Comment on above: Performed By: #### C VDTBH #### [facility] [address] [place] [address] Dr. Paz Burk Chloride [Moles/Vol] 105 mmol/L Normal 98-107 [facility] Comment on above: Performed By: #### C VDTBH #### [facility] [address] [place] [address] Dr. Paz Burk CO2 [Moles/Vol] 25.3 mmol/L Normal 21.0-32.0 [facility] Comment on above: Performed By: #### C VDTBH #### [facility] [address] [place] [address] Dr. Paz Burk Creatinine [Mass/Vol] 0.83 mg/dL Normal 0.55-1.02 [facility] Comment on above: Performed By: #### C VDTBH #### [facility] [address] [place] [address] Dr. Paz Burk EGFR-AF CAMBODIAN >60 Normal >=60 [facility] Comment on above: Performed By: #### C VDTBH #### [facility] [address] [address] [address] Paz Burk EGFR-NON AF CAMB[place]IAN >60 Normal >=60 [facility] Comment on above: Performed By: #### C VDTBH #### [facility] [address] [address] [address] Paz Burk Globulin (S) [Mass/Vol] 4.1 g/dL Normal [facility] Comment on above: Performed By: #### C VDTBH #### [facility] [address] [address] [address] Pza Burk Glucose [Mass/Vol] 102 mg/dL Normal 74-[address] [facility] Comment on above: Performed By: #### C VDTBH #### [facility] [address] [address] [address] Paz Burk Potassium [Moles/Vol] 3.7 mmol/L Normal 3.5-5.1 [facility] Comment on above: Performed By: #### C VDTBH #### [facility] [address] [address] [address] Paz Burk Protein [Mass/Vol] 7.4 g/dL Normal 6.4-8.2 [facility] Comment on above: Performed By: #### C VDTBH #### [facility] [address] [address] [address] Paz Burk Sodium [Moles/Vol] 137 mmol/L Normal 136-145 [facility] Comment on above: Performed By: #### C VDTBH #### [facility] [address] [address] [address] Paz Burk Urea nitrogen [Mass/Vol] 11.0 mg/dL Normal 7.0-18.0 [facility] Comment on above: Performed By: #### C VDTBH #### [facility] [address] [address] [address] Paz Burk Urea nitrogen/Creatinine [Mass ratio] 13.3 mg/mg Normal [facility] Comment on above: Performed By: #### C VDTBH #### [facility] [address] [address] [address] Paz Burk TROPONIN, HIGH SENSITIVITYon 01-20-2022 HSTROP 4.2 pg/mL Normal 4.0-51.3 [facility] Comment on above: Result Comment: CUT- OFF POINTS HAVE BEEN ESTABLISHED BASED ON THE FOURTH UNIVERSAL DEFINITIONS OF MYOCARDIAL INFARCTION. THE UPPER REFERENCE LIMIT (URL) OF TROPONIN, DEFINED THE 99TH PERCENTILE OF cTnI DISTRIBUTION IN A REFERENCE POPULATION, HAS BEEN CONFIRMED THE DECISION THRESHOLD FOR OK DIAGNOSIS. Performed By: #### C #### [facility] [address] [place] [address] Dr. Paz Burk HSTROP <4.0 Normal 4.0-51.3 [facility] Comment on above: Result Comment: CUT- OFF POINTS HAVE BEEN ESTABLISHED BASED ON THE FOURTH UNIVERSAL DEFINITIONS OF MYOCARDIAL INFARCTION. THE UPPER REFERENCE LIMIT (URL) OF TROPONIN, DEFINED THE 99TH PERCENTILE OF cTnI DISTRIBUTION IN A REFERENCE POPULATION, HAS BEEN CONFIRMED THE DECISION THRESHOLD FOR OK DIAGNOSIS. Performed By: #### C VDTBH #### [facility] [address] [id number] [address] Paz Burk XR CHEST 1 Von [...] Cornel QUIÑONES Date: 2022-01-19 23:43 Normal [facility] CBC AUTO DIFFon 12-21-2021 BASO # 0.0 103/ul Normal 0.0-0.1 [facility] Comment on above: Performed By: #### C VDTBH #### [facility] [address] [address] [address] Paz Burk Basophils/100 WBC (Bld) 0.3 % Normal 0.2-2.0 [facility] Comment on above: Performed By: #### C VDTBH #### [facility] [address] [place] [address] Dr. Paz Burk EO # 0.2 103/ul Normal 0.0-0.7 [facility] Comment on above: Performed By: #### C VDTBH #### [facility] [address] [place] [address] Dr. Paz Burk Eosinophils/100 WBC (Bld) 1.2 % Normal 0.9-7.0 [facility] Comment on above: Performed By: #### C VDTBH #### [facility] [address] [place] [address] Dr. Paz Burk Erythrocyte distribution width (RBC) [Ratio] 14.4 % Normal 11.0-15.0 [facility] Comment on above: Performed By: #### C VDTBH #### [facility] [address] [place] [address] Dr. Paz Burk Hematocrit (Bld) [Volume fraction] 37.7 % Normal 36.0-48.0 [facility] Comment on above: Performed By: #### C VDTBH #### [facility] [address] [place] [address] Dr. Paz Burk Hemoglobin (Bld) [Mass/Vol] 12.0 g/dL Normal 12.0-16.0 [facility] Comment on above: Performed By: #### C VDTBH #### [facility] [address] [place] [address] Dr. Paz Burk IG # 0.06 10e3/ul Critically high 0.00-0.03 [facility] Comment on above: Performed By: #### C VDTBH #### [facility] [address] [place] [address] Dr. Paz Burk IG % 0.4 % Normal 0.0-0.5 [facility] Comment on above: Performed By: #### C VDTBH #### [facility] [address] [place] [address] Dr. Paz Burk LYMPH # 3.1 103/ul Normal 1.2-3.8 [facility] Comment on above: Performed By: #### C VDTBH #### [facility] [address] [place] [address] Dr. Paz Burk Lymphocytes/100 WBC (Bld) 21.8 % Normal 20.5-60.0 [facility] Comment on above: Performed By: #### C VDTBH #### [facility] [address] [place] [address] Dr. Paz Burk MANUAL DIFF REQ NO Normal [facility] Comment on above: Performed By: #### C VDTBH #### [facility] [address] [place] [address] Dr. Paz Burk MCH (RBC) [Entitic mass] 26.1 pg Critically low 26.7-34.0 [facility] Comment on above: Performed By: #### C VDTBH #### [facility] [address] [place] [address] Dr. Paz Burk MCHC (RBC) [Mass/Vol] 31.8 g/dL Normal 29.9-35.2 [facility] Comment on above: Performed By: #### C VDTBH #### [facility] [address] [place] [address] Dr. Paz Burk MCV (RBC) [Entitic vol] 82.0 fL Normal 81.0-99.0 [facility] Comment on above: Performed By: #### C VDTBH #### [facility] [address] [place] [address] Dr. Paz Burk MONO # 0.8 103/ul Normal 0.3-0.8 [facility] Comment on above: Performed By: #### C VDTBH #### [facility] [address] [place] [address] Dr. Paz Burk Monocytes/100 WBC (Bld) 5.9 % Normal 1.7-12.0 [facility] Comment on above: Performed By: #### C VDTBH #### [facility] [address] [place] [address] Dr. Paz Burk NEUT # 10.0 103/ul Critically high 1.4-6.5 [facility] Comment on above: Performed By: #### C VDTBH #### [facility] [address] [place] [address] Dr. Paz Burk Neutrophils/100 WBC (Bld) 70.4 % Normal 43.0-75.0 [facility] Comment on above: Performed By: #### C VDTBH #### [facility] [address] [place] [address] Dr. Paz Burk Platelet mean volume (Bld) [Entitic vol] 11.0 fL Normal 9.5-13.5 [facility] Comment on above: Performed By: #### C VDTBH #### [facility] [address] [place] [address] Dr. Paz Burk PLT 308 103/ul Normal 150-450 [facility] Comment on above: Performed By: #### C VDTBH #### [facility] [address] [place] [address] Dr. Paz Burk RBC 4.60 106/ul Normal 4.20-5.40 [facility] Comment on above: Performed By: #### C VDTBH #### [facility] [address] [place] [address] Dr. Paz Burk WBC 14.2 103/ul Critically high 4.0-11.0 [facility] Comment on above: Performed By: #### C VDTBH #### [facility] [address] [place] [address] Dr. Paz Burk PROF 14(COMP METB)on 12-21- 022 Albumin [Mass/Vol] 3.4 g/dL Normal 3.4-5.0 [facility] Comment on above: Performed By: #### C MP #### [facility] [address] [place] [address] Dr. Paz Burk Albumin/Globulin [Mass ratio] 0.8 {ratio} Normal [facility] Comment on above: Performed By: #### C MP #### [facility] [address] [place] [address] Dr. Paz Burk ALP [Catalytic activity/Vol] 86 U/L Normal 46-116 [facility] Comment on above: Performed By: #### C MP #### [facility] [address] [place] [address] Dr. Paz Burk ALT [Catalytic activity/Vol] 26 U/L Normal 14-59 [facility] Comment on above: Performed By: #### C MP #### [facility] [address] [place] [address] Dr. Paz Burk Anion gap [Moles/Vol] 14.6 mmol/L Normal [facility] Comment on above: Performed By: #### C MP #### [facility] [address] [place] [address] Dr. Paz Burk AST [Catalytic activity/Vol] 15 U/L Normal 15-37 [facility] Comment on above: Performed By: #### C MP #### [facility] [address] [place] [address] Dr. Paz Burk Bilirubin [Mass/Vol] 0.2 mg/dL Normal 0.2-1.0 [facility] Comment on above: Performed By: #### C MP #### [facility] [address] [place] [address] Dr. Paz Burk Calcium [Mass/Vol] 8.5 mg/dL Normal 8.5-10.[address] [facility] Comment on above: Performed By: #### C MP #### [facility] [address] [place] [address] Dr. Paz Burk Chloride [Moles/Vol] 104 mmol/L Normal 98-107 [facility] Comment on above: Performed By: #### C MP #### [facility] [address] [place] [address] Dr. Paz Burk CO2 [Moles/Vol] 26.5 mmol/L Normal 21.0-32.0 [facility] Comment on above: Performed By: #### C MP #### [facility] [address] [place] [address] Dr. Paz Burk Creatinine [Mass/Vol] 0.88 mg/dL Normal 0.55-1.02 [facility] Comment on above: Performed By: #### C MP #### [facility] [address] [address] [address] Paz Burk EGFR-AF CAMBODIAN >60 Normal >=60 [facility] Comment on above: Performed By: #### C MP #### [facility] [address] [address] [address] Paz Burk EGFR-NON AF CAMBODIAN >60 Normal >=60 [facility] Comment on above: Performed By: #### C MP #### [facility] [address] [address] [address] Paz Burk Globulin (S) [Mass/Vol] 4.4 g/dL Normal [facility] Comment on above: Performed By: #### C MP #### [facility] [address] [address] [address] Paz Burk Glucose [Mass/Vol] 116 mg/dL Critically high 74-106 [facility] Comment on above: Performed By: #### C MP #### [facility] [address] [address] [address] Paz Burk Potassium [Moles/Vol] 3.1 mmol/L Critically low 3.5-5.1 [facility] Comment on above: Performed By: #### C MP #### [facility] [address] [address] [address] Paz Burk Protein [Mass/Vol] 7.8 g/dL Normal 6.4-8.[address] [facility] Comment on above: Performed By: #### C MP #### [facility] [address] [address] [address] Paz Burk Sodium [Moles/Vol] 142 mmol/L Normal 136-[address] [facility] Comment on above: Performed By: #### C MP #### [facility] [address] [address] [address] Paz Burk Urea nitrogen [Mass/Vol] 8.0 mg/dL Normal 7.0-18.0 [facility] Comment on above: Performed By: #### C MP #### [facility] [address] [place] [address] Dr. Paz Burk Urea nitrogen/Creatinine [Mass ratio] 9.1 mg/mg Normal [facility] Comment on above: Performed By: #### C MP #### [facility] [address] [place] [address] Dr. Paz Burk PROTIMEon 12-21-2021 INR Coag (PPP) [Relative time] 1.05 {INR} Normal [facility] Comment on above: Performed By: #### P TT, PT #### [facility] [address] [place] [address] Dr. Paz Burk INR GUIDELINES SEE BELOW Normal [facility] Comment on above: Result Comment: NANO RED INR: 2.0 - 3.0 CONDITIONS NOT LISTED BELOW 2.5 - 3.5 FOR PROSTHETIC HEART VALVE REPLACEMENT 2.5 - 3.5 RECURRENT THROMBOSIS Performed By: #### P TT, PT #### [facility] [address] [place] [address] Dr. Paz Burk PT Coag (PPP) [Time] 11.3 s Normal 9.0-11.6 [facility] Comment on above: Performed By: #### P TT, PT #### [facility] [address] [place] [address] Dr. Paz Burk PTTon 12-21-2021 aPTT Coag (Bld) [Time] 32.5 s Normal 22.3-36.2 [facility] Comment on above: Performed By: #### P TT, PT #### [facility] [address] [place] [address] Dr. Paz Burk BLOOD GASES BTYon 11-29-2021 02 MODE ROOM AIR Normal [facility] Comment on above: Performed By: #### C VDTBH #### [facility] [address] [place] [address] Dr. Paz Burk ALLENS TEST Positive Normal [facility] Comment on above: Performed By: #### C VDTBH #### [facility] [address] [place] [address] Dr. Paz Burk Base excess Calc (Bld) [Moles/Vol] 0.7 mmol/L Normal -2.0-2.0 [facility] Comment on above: Performed By: #### C VDTBH #### [facility] [address] [address] [address] Paz Burk BIPAP PRESSURE Normal [facility] Comment on above: Performed By: #### C VDTBH #### [facility] [address] [address] [address] Pza Burk CPAP [facility] Comment on above: Performed By: #### C VDTBH #### [facility] [address] [place] [address] Dr. Paz Burk FIO2 [facility] Comment on above: Performed By: #### C VDTBH #### [facility] [address] [place] [address] Dr. Paz Burk HCO3 (Bld) [Moles/Vol] 25.3 mmol/L Normal 22.0-26.0 [facility] Comment on above: Performed By: #### C VDTBH #### [facility] [address] [address] [address] Paz Burk LPM [facility] Comment on above: Performed By: #### C VDTBH #### [facility] [address] [place] [address] Dr. Paz Burk MINUTE VOLUME Normal [facility] Comment on above: Performed By: #### C VDTBH #### [facility] [address] [place] [address] Dr. Paz Burk Oxygen (Bld) [Partial pressure] 96.1 mm[Hg] Normal 80.0-100.0 [facility] Comment on above: Performed By: #### C VDTBH #### [facility] [address] [place] [address] Dr. Paz Burk Oxygen saturation in Blood 99.0 % Normal 95.0-100.0 [facility] Comment on above: Performed By: #### C VDTBH #### [facility] [address] [address] [address] Paz Burk PCO2 35.8 mmHg Normal 35.0-45.0 [facility] Comment on above: Performed By: #### C VDTBH #### [facility] [address] [place] [address] Dr. Paz Burk PEEP [facility] Comment on above: Performed By: #### C VDTBH #### [facility] [address] [address] [address] Paz Burk pH (Bld) 7.448 [pH] Normal 7.350-7.450 [facility] Comment on above: Performed By: #### C VDTBH #### [facility] [address] [place] [address] Dr. Paz Burk [facility] Comment on above: Performed By: #### C VDTBH #### [facility] [address] [place] [address] Dr. Paz Burk [facility] Comment on above: Performed By: #### C VDTBH #### [facility] [address] [place] [address] Dr. Paz Burk PUNCTURE SITE RR [facility] Comment on above: Performed By: #### C VDTBH #### [facility] [address] [place] [address] Dr. Paz Burk RATE [facility] Comment on above: Performed By: #### C VDTBH #### [facility] [address] [place] [address] Dr. Paz Burk VENT MODE [facility] Comment on above: Performed By: #### C VDTBH #### [facility] [address] [place] [address] Dr. Paz Burk [facility] Comment on above: Performed By: #### C VDTBH #### [facility] [address] [place] [address] Dr. Paz Burk CULTURE URINEon 08-21-2021 CULTURE URINE Culture Observations : MODERATE GROWTH OF MIXED GENITAL TING. NO POTENTIAL PATHOGENS SEEN. Normal [facility] Comment on above: Performed By: #### C MP #### [facility] [address] [address] [address] Paz DONG URINE PROFILEon 2 Bilirubin Ql (U) Negative Normal NEGATIVE [facility] Comment on above: Performed By: #### C MP #### [facility] [address] [place] [address] Dr. Paz Burk Clarity (U) CLEAR Normal CLEAR [facility] Comment on above: Performed By: #### C MP #### [facility] [address] [place] [address] Dr. Paz Burk Color (U) LT. YELLOW Normal YELLOW [facility] Comment on above: Performed By: #### C MP #### [facility] [address] [place] [address] Dr. Paz POST A micrscopic examination will be performed if indicated. Normal [facility] Comment on above: Performed By: #### C MP #### [facility] [address] [place] [address] Dr. Paz Burk Glucose Ql (U) Negative Normal NEGATIVE [facility] Comment on above: Performed By: #### C MP #### [facility] [address] [place] [address] Dr. Paz Burk Hemoglobin Ql (U) Negative Normal NEGATIVE [facility] Comment on above: Performed By: #### C MP #### [facility] [address] [place] [address] Dr. Paz Burk Ketones Ql (U) Negative Normal NEGATIVE [facility] Comment on above: Performed By: #### C MP #### [facility] [address] [address] [address] Paz Burk LEUKOCYTES LARGE Abnormal NEGATIVE [facility] Comment on above: Performed By: #### C MP #### [facility] [address] [place] [address] Dr. Paz Burk Nitrite Ql (U) Negative Normal NEGATIVE [facility] Comment on above: Performed By: #### C MP #### [facility] [address] [place] [address] Dr. Paz Burk pH (U) 7.5 [pH] Normal 5-9 [facility] Comment on above: Performed By: #### C MP #### [facility] [address] [place] [address] Dr. Paz Burk SPEC GRAVITY 1.020 Normal 1.005-<=1.025 [facility] Comment on above: Performed By: #### C MP #### [facility] [address] [place] [address] Dr. Paz Burk UA PROTEIN Negative Normal NEGATIVE/ TRACE [facility] Comment on above: Performed By: #### C MP #### [facility] [address] [place] [address] Dr. Paz Burk UR MICRO IND INDICATED Normal [facility] Comment on above: Performed By: #### C MP #### [facility] [address] [place] [address] Dr. Paz Burk Urobilinogen Qn (U) 0.2 {Ara'U}/dL Normal 0.2 - 1. 0 [facility] Comment on above: Performed By: #### C MP #### [facility] [address] [place] [address] Dr. Paz Burk URon 08-21-2021 , QUAL Negative Normal NEGATIVE [facility] Comment on above: Performed By: #### C MP #### [facility] [address] [place] [address] Dr. Paz Burk URINE MICROSCOPIC ONLYon BACTERIA SMALL Abnormal NONE SEEN [facility] Comment on above: Performed By: #### C MP #### [facility] [address] [place] [address] Dr. Paz Burk Bacteria identified Cx Nom (U) INDICATED Normal [facility] Comment on above: Performed By: #### C MP #### [facility] [address] [place] [address] Dr. Paz Burk CAST NONE SEEN Normal NONE SEEN [facility] Comment on above: Performed By: #### C MP #### [facility] [address] [address] [address] Paz Burk Crystals LM Nom (Urine sed) NONE SEEN Normal NONE SEEN [facility] Comment on above: Performed By: #### C MP #### [facility] [address] [address] [address] Paz Burk Epithelial cells LM Ql (Urine sed) FEW Abnormal NONE SEEN /RARE [facility] Comment on above: Performed By: #### C MP #### [facility] [address] [address] [address] Paz Burk MUCOUS NONE SEEN Normal NONE SEEN [facility] Comment on above: Performed By: #### C MP #### [facility] [address] [address] [address] Paz Burk RBC NONE SEEN Abnormal 0-2 [facility] Comment on above: Performed By: #### C MP #### [facility] [address] [place] [address] Dr. Paz Burk WBC 5-10 Abnormal NONE SEEN [facility] Comment on above: Performed By: #### C MP #### [facility] [address] [address] [address] Paz Burk Vital Signs Date Time Vital Sign Value Performing Clinician Facility 06-26-2024 15:44-0400 Body mass index (BMI) [Ratio] 49.67 kg/m2 Blucarat Work Phone: [facility] 06-26-2024 15:44-0400 Body weight 139.59 kg Dhruv Jorje DO Work Phone: [facility] 06-26-2024 15:44-0400 Diastolic blood pressure 72 mm[Hg] Dhruv Jorje DO Work Phone: [facility] 06-26-2024 15:44-0400 Systolic blood pressure 108 mm[Hg] Dhruv Jorje DO Work Phone: [facility] 06-21-2024 09:02-0400 Body height 167.6 cm Kvng Jordan MD Work Phone: [facility] 06-21-2024 09:02-0400 Body mass index (BMI) [Ratio] 49.67 kg/m2 Kvng Jordan MD Work Phone: [facility] 06-21-2024 09:02-0400 Body weight 139.53 kg Kvng Jordan MD Work Phone: [facility] 06-21-2024 09:02-0400 Diastolic blood pressure 75 mm[Hg] Kvng Jordan MD Work Phone: [facility] 06-21-2024 09:02-0400 Heart rate 91 /min Kvng Jordan MD Work Phone: [facility] 06-21-2024 09:02-0400 Systolic blood pressure 111 mm[Hg] Kvng Jordan MD Work Phone: [facility] 05-27-2024 16:24-0400 Diastolic blood pressure 69 mm[Hg] Kvng Jordan MD Work Phone: [facility] 05-27-2024 16:24-0400 Heart rate 86 /min Kvng Jordan MD Work Phone: [facility] 05-27-2024 16:24-0400 Systolic blood pressure 106 mm[Hg] Kvng Jordan MD Work Phone: [facility] 04-09-2024 11:34-0500 Body mass index (BMI) [Ratio] 45.52 kg/m2 Dhruv Jorje DO Work Phone: [facility] 04-09-2024 11:34-0500 Body weight 127.91 kg Dhruv Jorje DO Work Phone: [facility] 04-09-2024 11:34-0500 Diastolic blood pressure 72 mm[Hg] Dhruv Jorje DO Work Phone: [facility] 04-09-2024 11:34-0500 Systolic blood pressure 116 mm[Hg] Dhruv Jorje DO Work Phone: [facility] 03-08-2024 09:24-0500 Body mass index (BMI) [Ratio] 45.1 kg/m2 [facility] Nurse [facility] 03-08-2024 09:24-0500 Body weight 126.73 kg [facility] Nurse [facility] 03-08-2024 09:24-0500 Diastolic blood pressure 70 mm[Hg] [facility] Nurse [facility] 03-08-2024 09:24-0500 Systolic blood pressure 110 mm[Hg] [facility] Nurse [facility] 06-29-2020 09:02-0400 Body height 167.64 cm Edith Ford Work Phone: [facility] 06-29-2020 09:02-0400 Body mass index (BMI) [Ratio] 48.2 kg/m2 Edith Ford Work Phone: [facility] 06-29-2020 09:02-0400 Body temperature 97.8 [degF] Edith Ford Work Phone: [facility] 06-29-2020 09:02-0400 Body weight 135.65 kg Edithjaimie Ford Work Phone: [facility] 06-29-2020 09:02-0400 Diastolic blood pressure 73 mm[Hg] Edith Ford Work Phone: [facility] 06-29-2020 09:02-0400 Heart rate 69 /min Edith Ford Work Phone: [facility] 06-29-2020 09:02-0400 Respiratory rate 16 /min Edith Ford Work Phone: [facility] 06-29-2020 09:02-0400 SaO2% (BldA) [Mass fraction] 98 % Edith Ford Work Phone: [facility] 06-29-2020 09:02-0400 Systolic blood pressure 130 mm[Hg] Edith Gibson Work Phone: [facility] Encounters Encounter Date Encounter Type Care Provider Facility Start: 07-05-2024 End: 07-05-2024 ambulatory [facility] Start: 06-26-2024 End: 06-26-2024 ambulatory [facility] Not Available Start: 06-26-2024 End: 06-26-2024 Office outpatient visit 15 minutes Dhruv Jorje DO Work Phone: [facility] Comment on above: Second trimester pre gnancy; 25 weeks gestation of ; Diabetes mellitus screening; Monochorionic diamniotic twin , antepartum Start: 06-26-2024 End: 06-26-2024 Bamboo flowsheet Dhruv Jorje DO Work Phone: [facility] Start: 06-26-2024 End: 06-26-2024 Bamboo flowsheet Dhruv Jorje DO Work Phone: [facility] Start: 06-24-2024 End: 06-24-2024 Orders Only Lara Borrero RN [facility] Comment on above: 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 (Primary Dx); Echogenic intracardiac focus of fetus on ultrasound; 24 weeks gestation of Start: 06-21-2024 End: 06-21-2024 Telephone encounter Oneida Brunson [facility] Start: 06-21-2024 End: 06-21-2024 Office outpatient visit 25 minutes Kvng Jordan MD Work Phone: [facility] Comment on above: 24 weeks gestation o f (Primary Dx); Monochorionic diamniotic twin gestation in second trimester Start: 06-21-2024 End: 06-21-2024 ambulatory [facility] Start: 06-14-2024 End: 06-14-2024 ambulatory [facility] Start: 06-12-2024 End: 06-12-2024 Orders Only Elizabeth Wang RN [facility] Comment on above: 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 (Primary Dx); Echogenic intracardiac focus of fetus on ultrasound Start: 06-07-2024 End: 06-07-2024 ambulatory TALYA WOODARD [facility] Start: 05-31-2024 End: 05-31-2024 Office outpatient new 60 minutes Divya Limon M.D. Work Phone: [facility] Comment on above: 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 (Primary Dx) Start: 05-31-2024 End: 05-31-2024 ambulatory MEENU REED [facility] Start: 05-31-2024 End: 05-31-2024 ambulatory NICHOLE HYDE [facility] Start: 05-27-2024 End: 05-27-2024 ambulatory [facility] Start: 05-27-2024 End: 05-27-2024 Office outpatient visit 40 minutes Kvng Jordan MD Work Phone: [facility] Comment on above: 20 weeks gestation o f (Primary Dx); Monochorionic diamniotic twin gestation in second trimester; Echogenic intracardiac focus of fetus on ultrasound Start: 05-27-2024 End: 05-27-2024 ambulatory [facility] Start: 05-13-2024 End: 05-13-2024 Orders Only Elizabeth Wang RN [facility] Comment on above: 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 (Primary Dx) Start: 05-10-2024 End: 05-10-2024 ambulatory [facility] Start: 05-07-2024 End: 05-07-2024 ambulatory TALYA WOODARD Not Available Start: 04-26-2024 End: 04-26-2024 Orders Only Lara Borrero RN [facility] Comment on above: 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 (Primary Dx); 16 weeks gestation of Start: 04-11-2024 End: 04-11-2024 Chart abstracting Kvng Jordan MD Work Phone: [facility] Start: 04-10-2024 End: 04-10-2024 Telephone encounter Brittanie Gustavo HERNANDEZ [facility] Start: 04-09-2024 End: 04-09-2024 Bamboo flowsheet Dhruv Jorje DO Work Phone: [facility] Start: 04-09-2024 End: 04-09-2024 Bamboo flowsheet Dhruv Jorje DO Work Phone: [facility] Start: 04-09-2024 End: 04-09-2024 Office outpatient visit 15 minutes Dhruv Jorje DO Work Phone: [facility] Comment on above: Second trimester pre gnancy; 13 weeks gestation of Start: 04-09-2024 End: 04-09-2024 ambulatory DHRUV JORJE Not Available Start: 03-15-2024 End: 03-15-2024 Clinisync Result Encounter Dhruv Jorje DO Work Phone: [facility] Unsolicited Start: 03-15-2024 End: 03-15-2024 Clinisync Result Encounter Dhruv Jorje DO Work Phone: [facility] Unsolicited Start: 03-08-2024 End: 03-08-2024 Office outpatient visit 5 minutes [facility] Nurse [facility] Comment on above: GA: 9w2d Start: 03-08-2024 End: 03-08-2024 ambulatory DHRUV JORJE Not Available Start: 05-08-2022 End: 05-08-[address] DOCTOR ROWAN Facility: Start: 03-13-2022 End: 03-13-[address] DOCTOR ROWAN Facility: Start: 03-03-2022 End: 03-04-2022 ambulatory Neal Garcia [place] Start: 03-03-2022 End: 03-03-2022 Patient encounter procedure Edith Ford [facility] Start: 02-23-2022 End: 02-24-[address] KATHLEEN MISC Facility:[facility] Start: 01-20-2022 End: 01-20-[address] KATHLEEN MISC Facility:[facility] Start: 12-21-2021 End: 12-21-[address] KATHLEEN MISC Facility:[facility] Start: 11-29-2021 End: 11-29-[address] KATHLEEN MISC Facility:[facility] Start: 08-21-2021 End: 08-21-[address] KATHLEEN MISC Facility:[facility] Start: 06-29-2020 End: 06-29-2020 Emergency department patient visit Edith Shady Work Phone: [facility] Procedures Date Procedure Procedure Detail Performing Clinician Start: 06-26-2024 Urnls dip stick/tabl et rgnt non-auto w/o micrscp Dhruv Jorje DO Work Phone: Start: 05-07-2024 Microscopic observat ion [Identifier] in Cervix by Cyto stain Kvng Jordan MD Work Phone: Start: 04-09-2024 Urnls dip stick/tabl et rgnt non-auto w/o micrscp Dhruv Jorje DO Work Phone: Start: 03-15-2024 Blood count complete automated Not In System Ref Prov Start: 03-15-2024 Syphilis test non-treponemal antibody qual Not In System Ref Prov Start: 03-15-2024 TYPE AND SCREEN Not In System Ref Prov Start: 03-15-2024 ALL CBC WITH AUTO DIFF Dhruv Jorje DO Work Phone: Start: 03-08-2024 Urnls dip stick/tabl et rgnt non-auto w/o micrscp Dhruv Jorje DO Work Phone: Appendectomy Edith woodard History of tympanostomy tubes in ears Pola Ford Tubes in Ears Edith Cho on Plan of Treatment Date Care Activity Detail Author Start: 05-08-2027 Screening for malign ant neoplasm of cervix Pap Smear [employer] Start: 06-24-2025 End: 06-24-2025 US MFM with or without consult US MFM with or without consult Imaging Routine Monochorionic diamniotic twin gestation in second trimester Echogenic intracardiac focus of fetus on ultrasound 24 weeks gestation of Expected: 06/24/2025 (Approximate), Expires: 06/24/2025 [employer] Work Phone: Comment on above: Expected: 06/24/2025 (Approximate), Expires: 06/24/2025 Start: 06-21-2025 Adult BMI Screening [facility] Start: 06-21-2025 Tobacco Screening [facility] Start: 06-12-2025 End: 06-12-2025 US MFM with or without consult US MFM with or without consult Imaging Routine Monochorionic diamniotic twin gestation in second trimester Echogenic intracardiac focus of fetus on ultrasound Expected: 06/12/2025 (Approximate), Expires: 06/12/2025 [employer] Work Phone: Comment on above: Expected: 06/12/2025 (Approximate), Expires: 06/12/2025 Start: 05-27-2025 Tobacco Screening [facility] Start: 05-13-2025 End: 05-13-2025 US MFM with or without consult US MFM with or without consult Imaging Routine Monochorionic diamniotic twin gestation in second trimester Expected: 05/13/2025 (Approximate), Expires: 05/13/2025 [employer] Work Phone: Comment on above: Expected: 05/13/2025 (Approximate), Expires: 05/13/2025 Start: 04-26-2025 Adult BMI Screening [facility] Start: 04-26-2025 Tobacco Screening [facility] Start: 04-26-2025 End: 04-26-2025 US MFM with or without consult US MFM with or without consult Imaging Routine Monochorionic diamniotic twin gestation in second trimester 16 weeks gestation of Expected: 04/26/2025 (Approximate), Expires: 04/26/[address] [facility] Work Phone: Comment on above: Expected: 04/26/2025 (Approximate), Expires: 04/26/2025 Start: 10-28-2024 AMB SEASONAL FLU VACCINE (Season Ended) AMB SEASONAL FLU VACCINE (Season Ended) [facility] Start: 10-28-2024 Influenza vaccination [facility] Start: 07-18-2024 End: 07-18-2024 Patient encounter procedure 07/18/2024 1:30 PM EDT Routine [facility] [address] [place] [address] Talya Woodard PA [address] [place] [address] [facility] Start: 07-17-2024 End: 07-17-2024 Patient encounter procedure [facility] Imaging Start: 07-05-2024 End: 07-05-2024 Patient encounter procedure [facility] Start: 06-27-2024 End: 06-27-2024 Patient encounter procedure 06/27/2024 1:00 PM EDT Appointment [facility] US Imaging [address] [place] [phone] [facility] Imaging Start: 06-26-2024 End: 06-26-2025 CBC panel - Blood by Automated count CBC Lab Routine Diabetes mellitus screening Expected: 06/26/2024 (Approximate), Expires: 06/26/2025 [facility] Work Phone: Comment on above: Expected: 06/26/2024 (Approximate), Expires: 06/26/2025 Start: 06-26-2024 End: 06-26-2025 Measurement of glucose 1 hour after glucose challenge for glucose tolerance test Glucose tolerance, 1 hour Lab Routine Diabetes mellitus screening Expected: 06/26/2024 (Approximate), Expires: 06/26/2025 [facility] Comment on above: Expected: 06/26/2024 (Approximate), Expires: 06/26/2025 Start: 06-26-2024 End: 12-26-2024 US biophysical profile w non stress test US biophysical profile w non stress test Imaging Routine Monochorionic diamniotic twin , antepartum Expected: 06/26/2024 (Approximate), Expires: 12/26/2024 [facility] Comment on above: Expected: 06/26/2024 (Approximate), Expires: 12/26/2024 Start: 06-24-2024 End: 06-24-2024 Patient encounter procedure 06/24/2024 2:30 PM EDT Office Visit [facility] at [facility] [address] [place] [phone] Aiden Meza MD [address], [address] [place] [address] [facility] Start: 06-21-2024 End: 06-21-2024 Patient encounter procedure 06/21/2024 11:30 AM EDT Office Visit [facility] at [facility] [address] [place] [phone] Kvng Jordan MD [address], [address] [place] [address] [facility] Start: 06-21-2024 End: 06-21-2024 Patient encounter procedure 06/21/2024 8:45 AM EDT Appointment [facility] US Imaging [address] [place] [phone] [facility] Imaging Start: 06-14-2024 End: 06-14-2024 Patient encounter procedure 06/14/2024 2:15 PM EDT Appointment [facility] [address] [place] [address] [facility] Start: 06-07-2024 End: 06-07-2024 Patient encounter procedure 06/07/2024 9:45 AM EDT Appointment [facility] [address] [place] [address] [facility] Start: 05-27-2024 End: 05-27-2024 Patient encounter procedure 05/27/2024 1:00 PM EDT Appointment [facility] Imaging [address] [place] [address] [facility] Imaging Start: 05-10-2024 End: 05-10-2024 Patient encounter procedure 05/10/2024 1:45 PM EDT Appointment [facility] US Imaging [address] [place] [address] [facility] Start: 05-07-2024 End: 05-07-2024 Patient encounter procedure 05/07/2024 9:30 AM EDT Office Visit [facility] [address] [place] [phone] Talya Woodard PA [address] [place] [address] [facility] Start: 04-26-2024 End: 04-26-2024 Patient encounter procedure 04/26/2024 8:45 AM EST Office Visit [facility] at [facility] [address] [place] [phone] Kvng Jordan MD [address] [address] [facility] Start: 04-26-2024 End: 04-26-2024 Patient encounter procedure 04/26/2024 7:30 AM EST Appointment [facility] Imaging [address] [place] [address] [facility] Start: 04-09-2024 End: 04-09-2024 Patient encounter procedure 04/09/2024 11:20 AM EST Routine [facility] [address] [place] [phone] Dhruv Recinos, DO [address] [place] [address] Arrived [facility] Comment on above: Arrived Start: 04-08-2024 End: 04-08-2024 Patient encounter procedure 04/08/2024 9:20 AM EST Routine [facility] [address] [place] [phone] Dhruv Recinos, DO [address] [place] [address] [facility] Start: 03-08-2024 End: 03-08-2025 ABO/Rh ABO/Rh Lab Routine Missed menses , unspecified gestational age Expected: 03/08/2024 (Approximate), Expires: 03/08/2025 [facility] Comment on above: Expected: 03/08/2024 (Approximate), Expires: 03/08/2025 Start: 03-08-2024 End: 03-08-2025 Blood type and Indirect antibody screen panel - Blood Type and screen Lab Routine Missed menses , unspecified gestational age Expected: 03/08/2024 (Approximate), Expires: 03/08/2025 [facility] Work Phone: Comment on above: Expected: 03/08/2024 (Approximate), Expires: 03/08/2025 Start: 03-08-2024 End: 03-08-2025 Drugs of abuse panel - Urine by Screen method Rapid drug screen, urine Lab Routine , unspecified gestational age Encounter for supervision of normal first in first trimester Expected: 03/08/2024 (Approximate), Expires: 03/08/2025 [facility] Comment on above: Expected: 03/08/2024 (Approximate), Expires: 03/08/2025 Start: 10-29-2023 COVID-19 Vaccine ( season) COVID-19 Vaccine ( season) [facility] Start: 10-29-2023 Influenza vaccination Influenza Vacc ine [facility] Start: 11-27-2021 DTaP,Tdap and Td Vaccines (7 - Td or Tdap) DTaP,Tdap and Td Vaccines (7 - Td or Tdap) [facility] Start: 10-05-2019 Screening for malign ant neoplasm of cervix Pap Smear [facility] Start: 2017 DTaP,Tdap and Td Vaccines (1 - Tdap) DTaP,Tdap and Td Vaccines (1 - Tdap) [facility] Start: 2017 HEPATITIS B IMMUNIZATION (1 of 3 - 19+ 3-dose series) HEPATITIS B IMMUNIZATION (1 of 3 - 19+ 3-dose series) [facility] Start: 2016 Adult BMI Follow Up Plan Adult BMI Follow Up Plan [facility] Start: 2016 Adult BMI Screening Adult BMI Screen ing [facility] Start: 2013 HPV IMMUNIZATION (1 - 3-dose series) HPV IMMUNIZATION (1 - 3-dose series) [facility] Start: 10-05-2011 VARICELLA IMMUNIZATI ON (1 of 2 - 13+ 2-dose series) VARICELLA IMMUNIZATION (1 of 2 - 13+ 2-dose series) [facility] Start: 2010 Depression Screening Depression Scre ening [facility] Start: 2010 Tobacco Screening Tobacco Screening [facility] Start: 2005 DTAP/Tdap/Td IMMUNIZATION (1 - Tdap) DTAP/Tdap/Td IMMUNIZATION (1 - Tdap) [facility] Start: 10-05-1999 MMR IMMUNIZATION (1 of 1 - Standard series) MMR IMMUNIZATION (1 of 1 - Standard series) [facility] Bacteria identified in Urine by Culture Urine culture Microbiology Routine Missed menses Ordered: 03/08/2024 [facility] Comment on above: Ordered: 03/08/2024 CBC W Auto Different ial panel - Blood CBC and differential Lab Routine Missed menses , unspecified gestational age Ordered: 03/08/2024 [facility] Comment on above: Ordered: 03/08/2024 Hemoglobin A1c/Hemoglobin.total in Blood Hemoglobin A1c Lab Routine Missed menses , unspecified gestational age Ordered: 03/08/2024 [facility] Comment on above: Ordered: 03/08/2024 Hepatitis B virus surface Ag [Presence] in Serum or Plasma by Immunoassay Hepatitis B surface antigen Lab Routine Missed menses , unspecified gestational age Ordered: 03/08/2024 [facility] Comment on above: Ordered: 03/08/2024 Hepatitis C virus Ab [Presence] in Serum or Plasma by Immunoassay Hepatitis C antibody Lab Routine Missed menses , unspecified gestational age Ordered: 03/08/2024 [facility] Comment on above: Ordered: 03/08/2024 HIV-1/HIV-2 antigen/antibody combination immunoassay HIV-1 and HIV-2 antibodies Lab Routine Missed menses , unspecified gestational age Ordered: 03/08/2024 [facility] Comment on above: Ordered: 03/08/2024 Patient Education Muscle Strain (ED) [facility] Patient referral [facility] Reagin Ab [Presence] in Serum by RPR RPR Lab Routine Missed menses , unspecified gestational age Ordered: 03/08/2024 [facility] Comment on above: Ordered: 03/08/2024 Rubella antibody, IgG Rubella an tibody, IgG Lab Routine Missed menses , unspecified gestational age Ordered: 03/08/2024 [facility] Comment on above: Ordered: 03/08/2024 Immunizations Immunization Date Immunization Notes Care Provider Fa gaviota 01-30-2012 influenza virus vaccine, unspecified formulation Lara Borrero RN [facility] Payers Date Payer Category [facility]ayer [facility] [id number] 2024 Medicaid O [id number] 2023 Private Health Insurance [facility] MEDICAID [id number] 1998 Unknown [id number] [id number]. 727 1998 Unknown [id number] 2.16840.1.921965.3.579.2. 593 1998 Unknown [id number] 2.16840.1.914487.3.579.2. 593 1998 Unknown [id number] 2.16840.1.036029.3.579.2. 593 1998 Unknown [id number] 2.16840.1.369248.3.579.2. 593 1998 Unknown [id number] 2.16.840.1.617422.3.579.2. 593 1998 Unknown [id number] 2.16.840.1.393317.3.579.2. 593 1998 Unknown [id number] 2.16.840.1.028148.3.579.2. 593 1998 Unknown [id number] 2.16.840.1.339573.3.579.2. 1281 1998 Unknown [id number] 2.16.840.1.016619.3.579.2. 1281 1998 Unknown [id number] 2.16.840.1.378806.3.579.2. 1281 1998 Unknown [id number] 2.16.840.1.954842.3.579.2. 1281 1998 Unknown [id number] 2.16840.1.224774.3.579.2. 1281 1998 Unknown [id number] 2.16.840.1.654917.3.579.2. 1281 1998 Unknown [id number] 2.16840.1.837716.3.579.2. 1286 1998 Unknown [id number] 2.16.840.1.599966.3.579.2. 1286 1998 Unknown [id number] 2.16840.1.909073.3.579.2. 1259 1998 Unknown [id number] 2.16.840.1.818086.3.579.2. 1259 1998 Unknown [id number] 2.16.840.1.757701.3.579.2. 1259 1998 Unknown [id number] 2.16.840.1.563112.3.579.2. 1259 1998 Unknown [id number] 2.16.840.1.690253.3.579.2. 1286 1998 Unknown [id number] 2.16.840.1.692329.3.579.2. 1286 1998 Unknown [id number] 2.16.840.1.265539.3.579.2. 1286 1998 Unknown [id number] 2.16.840.1.050654.3.579.2. 1286 1998 Unknown [id number] 2.16.840.1.673042.3.579.2. 1286 1998 Unknown [id number] 2.16.840.1.610951.3.579.2. 1286 1998 Unknown [id number] 2.16.840.1.805753.3.579.2. 1286 1998 Unknown [id number] 2.16.840.1.805030.3.579.2. 1286 1959 Unknown [id number] 1959 Unknown [id number] Self-pay Self Pay [id number] Social History Date Type Detail Facility Start: 06-29-2020 End: 06-29-2023 Tobacco smoking status NHIS Never smoked tobacco (finding) [facility] Start: 1998 Sex Assigned At Female [facility] Tobacco Household tobacc o concerns: Yes. [facility] Tobacco smoking status No Smoking Status Entered [facility] Start: 03-08-2024 End: 05-27-2024 Sex Assigned At Female [facility] Start: 06-29-2023 End: 04-11-2024 Tobacco use and exposure Smokeless tobacco non-user [facility] Start: 03-08-2024 End: 05-07-2024 Alcoholic beverage intake Lifetime non-drinker (finding) [facility] Start: 03-08-2024 End: 05-27-2024 History of Social function [facility] Start: 01-17-2024 [facility] Start: 1998 Sex assigned at Not on file [facility] Tobacco smoking status NHIS Tobacco smoking consumption unknown [facility] Childcare Unknown [facility] Start: 09-30-2014 End: 05-28-2024 Sex Female (finding) [facility] Start: 05-31-2024 Alcoholic beverage intake Ex-drinker (finding) [facility] NEGATED: Highlighted rowStart: NINF History of tobacco use Passive smoker [facility] Goals Date Patient Goal Desired Activity /State Clinical Notes 06-29-2020 to 06-26-2024 Jeannette Kowalski LPN - 06/26/2024 3:00 PM EDTTelephone Encounter - Oneida Brunson - 06/21/2024 3:27 PM EDTTelephone Encounter - Oneida Brunson - 06/21/2024 3:27 PM LYNETTE Feliz - 04/09/2024 11:20 AM EST Note Date & Type Note Facility 06-26-2024 History of Presen t illness Narrative Reason for Appointment: Patient ID: Juan Diego Fulton is a 23 y.o. female who presents for Routine Visit Patient presents today for Return OB appointment. MEDICATIONS Current Outpatient Medications Medication Instructions aspirin 81 mg, Once folic acid (FOLVITE) 1 mg, Daily RT metFORMIN XR (Glucophage-XR) 500 MG 24 hr tablet TAKE 1 TABLET BY MOUTH IN THE EVENING WITH MEALS, DO NOT CRUSH, CHEW, OR SPLIT omeprazole (PRILOSEC) 20 mg, Oral, Daily before breakfast, Do not crush or chew. Vit-Fe Fumarate-FA ( Vitamins) 28-0.8 MG tablet [...] Exam Constitutional: Appearance: Normal appearance. She is well-developed. Cardiovascular: Rate and Rhythm: Normal rate and regular rhythm. Pulmonary: Effort: Pulmonary effort is normal. Breath sounds: Normal breath sounds. Abdominal: General: Bowel sounds are normal. There is no distension. Palpations: Abdomen is soft. Tenderness: There is no abdominal tenderness. There is no guarding or rebound. Musculoskeletal: General: No swelling. Normal range of motion. Right lower leg: No edema. Left lower leg: No edema. Neurological: Mental Status: She is alert and oriented to person, place, and time. Skin: General: Skin is warm and dry. Psychiatric: Mood and Affect: Mood normal. Behavior: Behavior normal. Vitals and nursing note reviewed. Exam conducted with a ammonium sulfate operator present. Vitals: Estimated body mass index is 49.67 kg/m as calculated from the following: Height as of 06/02/22: 5' 6 . Weight as of this encounter: 307 lb 12 oz. BP: 108/72 Patient's last menstrual period was 01/03/2024. ASSESSMENT & PLAN ICD-10-CM 1. Second trimester Z34.92 POCT urinalysis dipstick manually resulted 2. 25 weeks gestation of Z3A.25 3. Diabetes mellitus screening Z13.1 CBC Glucose tolerance, 1 hour CBC Glucose tolerance, 1 hour 4. Monochorionic diamniotic twin , antepartum O30.039 Return OB: Patient presents today for a routine obstetrics appointment. Patient is currently 25w0d . Patient states she is doing well but has complaints of being tired due to current . Patient has verbalizes frequent movement. labor precautions was discussed/given and patient was instructed to perform kick counts three times a day. Pt given glucola with instructions. M recommended delivery at 34-37 weeks. Orders Placed This Encounter Procedures CBC Glucose tolerance, 1 hour POCT urinalysis dipstick manually resulted Follow Up: Patient is to return to office in 3 week for routine OB appointment. Documented by Jeannette Kowalski LPN on behalf of: Dhruv Recinos DO documented in this encounter [facility] 06-21-2024 Miscellaneous Notes I called pt and left a message about the u;/s Talya Quiroga scheduled her for documented in this encounter [facility] 06-21-2024 Telephone encounter Note I called pt and left a message about the u;/s Talya Quiroga scheduled her for [facility] 06-21-2024 History of Presen t illness Narrative Headache/epigastric pain/blurry vision/swelling? Moderate bilateral pedal swelling. Denies other symptoms Cramping/contractions? No Abnormal vaginal discharge? No Spotting or vaginal bleeding? No Loss or gush of fluid like your water may have broken? No Recent ER visits or hospitalizations? No Any concerns that you would like me to mention to the provider today? Patient would like to discuss her swelling [facility]- Medicine Office Note Reason For Office Visit: monochorionic - diamniotic twins HPI: Juan Diego Fulton is a 23 y.o. at 24w2d with Estimated Date of Delivery: 10/09/24 who presented for consultation from Dhruv Recinos DO regarding Chief Complaint Patient presents with [place] Twins Baby A EIF I have reviewed the pertinent available patient records including but not limited to notes, labs and images She presents today with her mother. She reports that she is doing well. She reports early normal movements and she denies leakage of fluid, contractions or vaginal bleeding. She denies fever, chills, nausea, vomiting, shortness of breath, chest pain, headache, blurry vision, right upper quadrant pain or edema. Complications: Spontaneously conceived monochorionic diamniotic twin gestation. EFW discordance 3.1 % on ultrasound today. No evidence of rtdt-rh-ktps transfusion or TAPS. The patient has a visit at the therapy Center at [facility] as on prior imaging there was a significant discrepancy in the estimated weight. When she was evaluated at [facility] there was no evidence of selective growth restriction and the twins were found to be concordant. Depression - stopped zoloft, reports good and stable mood Obesity PCOS was on metformin - stopped THC use Denies family history of: Learning difficulties, congenital anomalies, DVT/VTE, or other inherited conditions Cell free DNA: low risk female x2 Carrier screen: neg 05/31 Denies smoking, alcohol or other substance use in Denies exposure to cat litter, farming animals, toxic exposure to chemical at work/environment Recent hospitalization: no Review of systems: Review of systems was noncontributory OB Hx: OB History Para Term AB Living 1 SAB IAB Ectopic Multiple Live Births # Outcome Date GA Lbr Fab/2nd Weight Sex Type Anes PTL Lv 1 Current PREECLAMPSIA SCREEN ([place] Preventive Services Task Force) Patient is at high risk if 1 or more factors present. Incidence of preeclampsia is >= 8%: Prior preeclampsia NO Multiple gestation YES Chronic hypertension NO Type 1 or 2 diabetes NO Renal disease NO Autoimmune disease NO (Lupus, APLS) Patient is at moderate risk is several risk factors are present: Nulliparity YES Obesity (BMI >= 30) YES Family history of preeclampsia NO (Mother, sister) NO Sociodemographic characteristics NO (AA, low socioeconomic status) Age >= 35 NO Personal history factor NO (Previous SGA, adverse outcome, > 10 years from last ) PMH: Past Medical History: Diagnosis Date [place] 45.0-49.9[place] [place] Irregular periods Oligomenorrhea PCOS (polycystic ovarian syndrome) PSHIST: Past Surgical History: Procedure Laterality Date APPENDECTOMY TYMPANOSTOMY TUBE PLACEMENT Allergies: Allergies Allergen Reactions Sumatriptan Shortness Of Breath Theophylline Hives and Rash Meds: Current Outpatient Medications: acetaminophen (TYLENOL EXTRA STRENGTH) 500 mg tablet, Take 2 tablets (1,000 mg total) by mouth every 6 (six) hours as needed for pain., Disp: , Rfl: aspirin 81 mg, Take 1 tablet once a day until delivery and then stop, Disp: 30 tablet, Rfl: 6 folic acid (FOLVITE) 1 mg tablet, Take 1 tablet (1 mg total) by mouth in the morning for 210 days., Disp: 30 tablet, Rfl: 6 PNV b#95-ferrous fumarate-FA () 28 mg iron- 800 mcg tablet, Take 1 tablet by mouth in the morning., Disp: , Rfl: metFORMIN XR (GLUCOPHAGE XR) 500 mg 24 hr tablet, Take 1 tablet (500 mg total) by mouth daily with breakfast. (Patient not taking: Reported on 04/26/2024), Disp: , Rfl: ondansetron ODT (ZOFRAN ODT) 4 mg disintegrating tablet, Dissolve 1 tablet (4 mg total) on tongue every 8 (eight) hours as needed for nausea or vomiting. (Patient not taking: Reported on 06/21/2024), Disp: , Rfl: sertraline (ZOLOFT) 100 mg tablet, Take 1 tablet (100 mg total) by mouth in the morning. (Patient not taking: Reported on 04/26/2024), Disp: , Rfl: SH: Social History Socioeconomic History Marital status: Single Spouse name: Not on file Number of children: Not on file Years of education: Not on file Highest education level: Not on file Occupational History Not on file Tobacco Use Smoking status: Never Smokeless tobacco: Never Vaping Use Vaping status: Never Used Substance and Sexual Activity Alcohol use: Never Drug use: Yes Types: Medical Marijuana Sexual activity: Not on file Other Topics Concern Not on file Social History Narrative Not on file Social Drivers of Health Financial Resource Strain: Not on file Food Insecurity: No Food Insecurity (05/27/2024) Hunger Screening Food Insecurity - Worry: Never True Food Insecurity - Inability: Never True Transportation Needs: Not on file Physical Activity: Not on file Stress: Not on file Social Connections: Not on file Interpersonal Safety: Low Risk (05/31/2024) Received from [facility] Intimate Partner Violence Safe in relationship? (up to 18): Not on file If you are in a relationship, do you feel safe in that relationship?: Yes Housing Instability: Not on file Physical Exam: Vital Signs Vitals: 06/21/24 0902 BP: 111/75 BP Site: Right Arm BP Postition: Sitting BP CUFF SIZE: L (13-17 inches) Pulse: 91 Weight: (!) 139.5 kg (307 lb 9.6 oz) Height: 167.6 cm (5' 5.98 ) Physical Exam: Gen: Not in acute distress, alert and oriented. Eyes: Pupils equal and reactive Chest: Nonlabored breathing Cardiac: Pulse was regular on vital signs assessment Abdomen: Gravid Skin/extremities: Appears intact. No visible lesions MS:no visible edema Neuro: No focal deficits Notes/Imaging/Labs reviewed No visits with results within 1 Month(s) from this visit. Latest known visit with results is: Abstract on 04/11/2024 Component Date Value Ref Range Status Syphilis 03/15/2024 non-reactive Final Rubella immune IgG 03/15/2024 0.90 Final Hemoglobin 03/15/2024 11.8 Final Hematocrit 03/15/2024 36.1 Final Rbc Mcv (Fl) By Automated Count 03/15/2024 79.2 Final Abo/Rh(D) 03/15/2024 O Negative Final Ultrasound findings Pertinent Ultrasound findings are see report Monochorionic-diamniotic twin consistent with 24w 2d with an DORON of 10/09/2024. Twin A is lower, cephalic right. Intrauterine with appropriate interval growth. EFW measures at the 36%, AC measures at the 54%. Previously identified echogenic intracardiac focus was not well visualized on today's exam. Umbilical artery S/D ratio in normal range. MCA PSV is in the unremarkable range for the evaluation of anemia. Ductus venosus demonstrates continuous forward flow. Amniotic fluid MVP measures 5.1 cm. Twin B is upper, left , variable. Intrauterine with appropriate interval growth. EFW measures at the 45%, AC measures at the 52%. Umbilical artery S/D ratio in normal range. MCA PSV is in the unremarkable range for the evaluation of anemia. Ductus venosus demonstrates continuous forward flow. Amniotic fluid MVP measures 5.1 cm. Assessment/Plan 23 y.o. @ at 24w2d with Estimated Date of Delivery: 10/09/24 here for consultation regardin. 24 weeks gestation of 2. Monochorionic diamniotic twin gestation in second trimester Discussed that anatomy and echocardiogram are incomplete due to positions and maternal body habitus. Concordant growth on ultrasound today with only 3.1% estimated weight discordance Normal Doppler interrogation of the twins Reviewed with the patient repeat US in 1 week for repeat Doppler interrogation or to deescalate to monitoring q.2 weeks with the ultrasounds surveillance due to now reassuring ultrasound and Dopplers surveillance. She strongly desires to go back to q.2 weeks. She also has an upcoming appointment with her OB She needs to be screened for diabetes She desires to deliver at [facility] Recommendations: Daily low dose (81mg) aspirin for preeclampsia prevention To return in 2 weeks for Dopplers for re-evaluation of the twins TTTS and TAPS protocol scheduled at [facility] Follow-up survey/echo scheduled growth every 4 weeks at [facility] monitoring with weekly NST and DVP at 32 weeks until delivery done through primary OB office Delivery [id number] gestation. If the remains stable consider delivery at 37 weeks to reduce risks with prematurity Mode of delivery based on obstetric indications and provider preference Otherwise routine care Continue to monitor mood She will need GDM screen Please obtain baseline CMP and protein creatinine ratio if not done If the patient has not had recent thyroid function please check her thyroid function Location of delivery: The patient desires delivery at [facility]. Please initiate transfer of care Continue to recommend marijuana cessation The patient has a scheduled follow-up up with M Plan reviewed with patient. She vocalized understanding all questions answered. The patient is to continue with routine care in your office Thank you for allowing me to participate in her care. Please contact me if you have any concerns. Kvng Jordan MD, FACOG (she/hers) Maternal- Medicine [facility] [address] [facility] [address]st [place] [address] This document was created with [employer] technology. Though I make every effort to review the dictation as it is transcribed, on occasion the spoken word can be misinterpreted by the technology leading to inappropriate words, phrases, or sentences. This note is addressed to the requesting provider as a consultation for clinical guidance. Specific medical abbreviations are occasionally used and those are generally approved by the [place]?Board of?Obstetrics and?Gynecology?as well as?Gilbert sesay abbreviations. The above plan of care was based solely on the diagnoses for which a consultation was requested. ?More frequent testing may be indicated based on her other medical/obstetrical conditions. The management of other or medical conditions is beyond the scope of requested consultation and will continue to be followed by the primary room inspector or primary care provider. Note to patient: The Century Cures Act makes medical notes like these available to patients in the interest of transparency. However, be advised this is a medical document. It is intended as peer to peer communication. It is written in medical language and may contain abbreviations or verbiage that are unfamiliar. It may appear blunt or direct. Medical documents are intended to carry relevant information, facts as evident, and the clinical opinion of the practitioner. documented in this encounter [facility] 05-27-2024 History of Presen t illness Narrative Headache/epigastric pain/blurry vision/swelling? No Cramping/contractions? No Abnormal vaginal discharge? No Spotting or vaginal bleeding? No Loss or gush of fluid like your water may have broken? No Recent ER visits or hospitalizations? No Any concerns that you would like me to mention to the provider today? No [facility] Maternal- Medicine Office Note Reason For Office: add on due to significant growth discrepancy HPI: Juan Diego Fulton is a 23 y.o. at 20w5d ith Estimated Date of Delivery: 10/09/24 Chief Complaint Patient presents with growth discrepancy I have reviewed the pertinent available patient records including but not limited to notes, labs and images She presents today with her mother. She reports that she is doing well. She reports early normal movements and she denies leakage of fluid, contractions or vaginal bleeding. She denies fever, chills, nausea, vomiting, shortness of breath, chest pain, headache, blurry vision, right upper quadrant pain or edema. Complications: Spontaneously conceived monochorionic diamniotic twin gestation growth discrepancy 28% on ultrasound today normal evaluation of umbilical Artery, MCA and DV Dopper. Bladders seen and normal MVPs Fetus A -EFW is 438 g at the 88%. Fetus B- EFW is 315 g at the 10%.AC 25%ile Twin A echogenic intracardiac focus Depression - stopped zoloft, reports good and stable mood Obesity PCOS was on metformin - stopped THC use Denies family history of: Learning difficulties, congenital anomalies, DVT/VTE, or other inherited conditions Cell free DNA: low risk female x2 Carrier screen: neg 05/31 Denies smoking, alcohol or other substance use in Denies exposure to cat litter, farming animals, toxic exposure to chemical at work/environment Recent hospitalization: no Review of systems: Review of systems was noncontributory OB Hx: OB History Para Term AB Living 1 SAB IAB Ectopic Multiple Live Births # Outcome Date GA Lbr Fab/2nd Weight Sex Type Anes PTL Lv 1 Current P PMH: Past Medical History: Diagnosis Date [place] 45.0-49.9[place] Irregular periods Oligomenorrhea PCOS (polycystic ovarian syndrome) PSHIST: Past Surgical History: Procedure Laterality Date APPENDECTOMY TYMPANOSTOMY TUBE PLACEMENT Allergies: Allergies Allergen Reactions Sumatriptan Shortness Of Breath Theophylline Hives and Rash Meds: Current Outpatient Medications: acetaminophen (TYLENOL EXTRA STRENGTH) 500 mg tablet, Take 2 tablets (1,000 mg total) by mouth every 6 (six) hours as needed for pain., Disp: , Rfl: aspirin 81 mg, Take 1 tablet once a day until delivery and then stop, Disp: 30 tablet, Rfl: 6 folic acid (FOLVITE) 1 mg tablet, Take 1 tablet (1 mg total) by mouth in the morning for 210 days., Disp: 30 tablet, Rfl: 6 ondansetron ODT (ZOFRAN ODT) 4 mg disintegrating tablet, Dissolve 1 tablet (4 mg total) on tongue every 8 (eight) hours as needed for nausea or vomiting., Disp: , Rfl: PNV cmb#95-ferrous fumarate-FA () 28 mg iron- 800 mcg tablet, Take 1 tablet by mouth in the morning., Disp: , Rfl: metFORMIN XR (GLUCOPHAGE XR) 500 mg 24 hr tablet, Take 1 tablet (500 mg total) by mouth daily with breakfast. (Patient not taking: Reported on 05/27/2024), Disp: , Rfl: sertraline (ZOLOFT) 100 mg tablet, Take 1 tablet (100 mg total) by mouth in the morning. (Patient not taking: Reported on 05/27/2024), Disp: , Rfl: SH: Social History Socioeconomic History Marital status: Single Spouse name: Not on file Number of children: Not on file Years of education: Not on file Highest education level: Not on file Occupational History Not on file Tobacco Use Smoking status: Never Smokeless tobacco: Never Vaping Use Vaping status: Never Used Substance and Sexual Activity Alcohol use: Never Drug use: Yes Types: Medical Marijuana Sexual activity: Not on file Other Topics Concern Not on file Social History Narrative Not on file Social Drivers of Health Financial Resource Strain: Not on file Food Insecurity: No Food Insecurity (05/27/2024) Hunger Screening Food Insecurity - Worry: Never True Food Insecurity - Inability: Never True Transportation Needs: Not on file Physical Activity: Not on file Stress: Not on file Social Connections: Not on file Interpersonal Safety: Not on file Housing Instability: Not on file Physical Exam: Vital Signs Vitals: 05/27/24 1624 BP: 106/69 BP Site: Left Arm BP Postition: Sitting BP CUFF SIZE: L (13-17 inches) Pulse: 86 Physical Exam: Gen: Not in acute distress, alert and oriented. Eyes: Pupils equal and reactive Chest: Nonlabored breathing Cardiac: Pulse was regular on vital signs assessment Abdomen: Gravid Skin/extremities: Appears intact. No visible lesions MS:no visible edema Neuro: No focal deficits Notes/Imaging/Labs reviewed No visits with results within 1 Month(s) from this visit. Latest known visit with results is: Abstract on 04/11/2024 Component Date Value Ref Range Status Syphilis 03/15/2024 non-reactive Final Rubella immune IgG 03/15/2024 0.90 Final Hemoglobin 03/15/2024 11.8 Final Hematocrit 03/15/2024 36.1 Final Rbc Mcv (Fl) By Automated Count 03/15/2024 79.2 Final Abo/Rh(D) 03/15/2024 O Negative Final Ultrasound findings Pertinent Ultrasound findings are see report Assessment/Plan 23 y.o. @ at 20w5d with Estimated Date of Delivery: 10/09/24 here for consultation regardin. 20 weeks gestation of (Primary) 2. Monochorionic diamniotic twin gestation in second trimester growth discrepancy 28% on ultrasound today normal evaluation of umbilical Artery, MCA and DV Dopper. Bladders seen and normal MVPs Fetus A -EFW is 438 g at the 88%. Fetus B- EFW is 315 g at the 10%.AC 25%ile The patient has been previously counseled on monochorionic diamniotic twin gestation I reviewed with her today that I am concerned regarding the growth discrepancy of 28% and there is a high-risk for twin B to become selectively growth restricted. Normal Doppler interrogation today. Discussed with the patient that I would recommend 2nd opinion at the [facility]. The is at risk of adverse outcomes including but not limited to demise to 1 or both twins, delivery, section, NICU admission. There is a risk of demise of the smaller twin which can result into about 10% risk for demise of the larger twin and about 30% risk of neurological injury. Timing of delivery to be further addressed pending clinical course. Timing of delivery for uncomplicated monochorionic diamniotic twins [id number] I reviewed with them that monochorionic diamniotic twin gestations with isolated growth restriction if they remain clinically stable delivery is [id number]. 3. Echogenic intracardiac focus of fetus on ultrasound Isolated echogenic intracardiac focus (EIF) is a common finding during second trimester anatomy ultrasounds and is identified in 3-5% of normal fetuses. We discussed with the patent the significance of an echogenic focus in the ventricle of the heart. This is not an abnormality per se and is not associated with congenital heart disease, It is usually a normal variant seen in about 4% of pregnancies. An EIF often disappears later in or postnatally, and is not associated with myocardial dysfunction or structural anomalies. Down syndrome fetuses have higher incidence of echogenic foci than normal fetuses. Therefore it is considered to be risk factor for Down syndrome. She has low risk cell free DNA Recommendations: Please see prior consultation notes from Maternal Medicine The patient is scheduled for TTTS/TAPS surveillance and growth ultrasounds Referral to [facility] initiated Timing of delivery to be readdressed pending clinical course. Further recommendations to be made at follow-up visit Location of delivery would recommend tertiary care center the patient desires delivery at [facility]. Please initiate transfer of care to for the [facility] The patient has a scheduled follow-up with [facility] Plan reviewed with patient. She vocalized understanding all questions answered. The patient is to continue with routine care in your office Thank you for allowing me to participate in her care. Please contact me if you have any concerns. Kvng Jordan MD, FACOG (she/hers) Maternal- Medicine [facility] [address] [facility] 1st [place] [address] This document was created with [employer] technology. Though I make every effort to review the dictation as it is transcribed, on occasion the spoken word can be misinterpreted by the technology leading to inappropriate words, phrases, or sentences. This note is addressed to the requesting provider as a consultation for clinical guidance. Specific medical abbreviations are occasionally used and those are generally approved by the [place]?Board of?Obstetrics and?Gynecology?as well as?Gilbert s abbreviations. The above plan of care was based solely on the diagnoses for which a consultation was requested. ?More frequent testing may be indicated based on her other medical/obstetrical conditions. The management of other or medical conditions is beyond the scope of requested consultation and will continue to be followed by the primary room inspector or primary care provider. Note to patient: The 21st Century Cures Act makes medical notes like these available to patients in the interest of transparency. However, be advised this is a medical document. It is intended as peer to peer communication. It is written in medical language and may contain abbreviations or verbiage that are unfamiliar. It may appear blunt or direct. Medical documents are intended to carry relevant information, facts as evident, and the clinical opinion of the practitioner. documented in this encounter [facility] 04-10-2024 Miscellaneous Notes Please call us back we are holding an kade for you. documented in this encounter [facility] 04-10-2024 Telephone encounter Note Please call us back we are holding an kade for you. [facility] 04-09-2024 History of Presen t illness Narrative [...] by LYNETTE Moreno documented in this encounter [facility] 03-08-2024 History of Presen t illness Narrative [...] calculated from the following: Height as of 23: 5' 6 . Weight as of this [...] or undercooked meat, and stay away from [facility]. Patient has also been advised to not change litter boxes and eat 6 small meals a day. Patient has been consulted regarding the do's and don'ts of . Patient was given labs and all questions and concerns were answered. Patient was given script for vitamins and Zofran. Patient given [facility] to do at 10 weeks. Follow Up: Patient is to return in 4 weeks for routine OB appointment. Follow Up: Patient is to have labs drawn at directed and return to office for initial OB appointment with provider. Patient may call office as needed with any concerns or questions. Nurse Visit Completed by: Mackenzie Davison LPN documented in this encounter [facility] 03-03-2022 Note Echocardiology Procedure Exam Date/Time Accession # Ordering Dr. Noyola Transthoracic 03/03/2022 09:37 EST [id number] Edith Ford MD Complete CPT code 74060 [id number] Reason for Exam (Echo Transthoracic Complete) Cardiomegaly I51.7 Report [facility] [address] [place] [address] Adult Echocardiogram Report Name: JUAN DIEGO FULTON Study Date: 03/03/2022 09:03 AM BP: 111/78 mmHg Patient Location: [facility] HR: 68 : 2000 Gender: Female Height: 66 in Age: 21 yrs Ethnicity: [facility] Weight: 298 lb Reason For Study: Cardiomegaly I51.7 BSA: 2.4 m2 History: No cardiac history per patient Ordering Physician: Edith Ford Referring Physician: Edith Ford Performed By: Tara Lilly [facility] Interpretation Summary No comparison study is [...] Doppler Measurements & Calculations MV E max monico: 78.3 cm/sec Ao V2 max: 131.4 cm/sec LV V1 max P.4 mmHg MV A max monico: 55.6 cm/sec MV dec slope: 429.6 cm/sec2 Ao max P.9 mmHg LV V1 mean P.2 mmHg Echocardiology Report MV E/A: 1.4 MV dec time: 0.18 sec Ao V2 mean: 92.0 cm/sec LV V1 max: 104.3 cm/sec Lat Peak E' Monico: 12.8 cm/sec Ao mean P.8 mmHg LV V1 mean: 69.5 cm/sec E/E' Lat: 6.1 Ao V2 VTI: 27.2 cm LV V1 VTI: 21.6 cm Med Peak E' Monico: 10.8 cm/sec E/E' Med: 7.3 TR max monico: 215.0 cm/sec RAP systole: 3.0 mmHg AV VR: 0.80 MV P1/2t-pr_phl: 53.4 msec TR max P.5 mmHg RVSP(TR): 21.5 mmHg FINAL REPORT Dictated: 03/03/2022 9:03 am Neal Garcia MD Signed (Electronic Signature): 03/03/2022 12:31 pm Signed by: Neal Garcia MD Transcribed by: MATHEW Technologist: KEN [facility] 06-29-2020 Hospital Discharg e instructions Additional Instructions [...] palpitations fever vomiting or any other concerns [facility] Evaluation + Plan note No data available for this section [facility] Evaluation note No Assessments Infor mation Available [facility] Evaluation note Diagnosis Missed menses , unspecified gestational age Encounter for supervision of normal first in first trimester Nausea Nausea alone documented in this encounter [facility] Diagnosis Second trimester state, incidental 13 weeks gestation of documented in this encounter [facility]* Diagnosis Monochorionic diamniotic twin gestation in second trimester- Primary 16 weeks gestation of [facility] Diagnosis Monochorionic diamniotic twin gestation in second trimester- Primary [facility]* Diagnosis 20 weeks gestation of - Primary Monochorionic diamniotic twin gestation in second trimester Echogenic intracardiac focus of fetus on ultrasound [facility] Diagnosis Monochorionic diamniotic twin gestation in second trimester- Primary [facility] Monochorionic diamniotic twin gestation in second trimester- Primary Echogenic intracardiac focus of fetus on ultrasound [facility] Diagnosis 24 weeks gestation of - Primary Monochorionic diamniotic twin gestation in second trimester [facility] Diagnosis Monochorionic diamniotic twin gestation in second trimester- Primary Echogenic intracardiac focus of fetus on ultrasound 24 weeks gestation of documented [facility] encounter [facility]* Diagnosis Second trimester state, incidental 25 weeks gestation of Diabetes mellitus screening Screening for diabetes mellitus Monochorionic diamniotic twin , antepartum [facility]* Ayah Benton M.D. - 05/31/2024 3:30 PM EDT [facility] Conference Members present: Ayah Benton MD; Mary Guajardo, MARTINN, RNII, RNC-ARMANDO; HPI: Juan Diego Fulton is a 23 y.o. who is presently 21w2d gestation (Estimated Date of Delivery: 10/09/24 by 7 week US) who was referred by Kvng Jordan MD for evaluation and management of Vivek twins with concern for TTTS and/or sFGR. Juan Diego Fulton was referred to the [facility] on 05/28/[address] Kvng Jordan at [facility]. Significant findings include ultrasound completed on 05/27/24 at 20 5/[address] Jordan's office reporting that: Placenta: Posterior. Cervical Length: 4.16cm TWIN A (larger baby): Cord: 3 vessel EFW: 438g (88%) Discordance 0 / 28.1% DVP: 3.4cm Normal bladder Echogenic focus visualized in left cardiac ventricle MCA PSV is normal UA S/D ratio is normal DV has continuous forward flow TWIN B (larger baby): Cord: 3 vessel EFW: 315g (10%) Discordance 28.1% DVP: 3.4cm Normal bladder MCA PSV is normal UA S/D ratio is normal DV has continuous forward flow GENETIC TESTING: NIPT (03/15/24) - Low Risk Female [facility] Carrier Screen (03/15/24): Negative GTT, 1h: Not Done Yet HgbA1c (03/15/24): 5% Height: 5' 6 Pre- Weight: 279# Current Weight (05/27/24): 300# BMI: 48.42 OB History Para Term AB Living 1 0 SAB IAB Ectopic Multiple Live Births # Outcome Date GA Lbr Fab/2nd Weight Sex Type Anes PTL Lv 1 Current Past Medical History: Diagnosis Date Depression Was taking Zoloft. Quit at the beginning of this . Patient reports stable mood. Intrauterine growth restriction affecting antepartum care of mother, fetus 2 of multiple gestation 05/27/2024 Twin B measuring at the 10th%tile. Discordance 28%. Marijuana use Monochorionic diamniotic twin 05/28/2024 G1 - DORON 10/09/24. Girls. Multiple drug allergies Sumatriptan (SOB) and Theophylline (Hives). Obesity 05/28/2024 BMI 48.42 PCOS (polycystic ovarian syndrome) Was taking Metformin but stopped at the beginning of the . Primigravida, antepartum 05/27/2024 DORON 10/09/24. Rh negative state in antepartum period Past Surgical History: Procedure Laterality Date HX APPENDECTOMY HX TYMPANOSTOMY Tube Placement Pertinent OB labs done: see ACOG form Imaging: Echocardiogram on 05/31/2024 at [facility]: FETUS A SUMMARY: 1. Normal cardiac anatomy. 2. Normal right ventricular size and systolic function. 3. Normal left ventricular size and systolic function. 4. Normal heart rate and rhythm. FETUS B SUMMARY: 1. Four chambered heart with patent inflow and outflow valves and antegrade flow across the ductal and aortic arches. 2. Normal right ventricular size and systolic function. 3. Normal left ventricular size and systolic function. 4. Normal heart rate and rhythm. Ultrasound on 05/31/2024 at [facility]: Impression ========= Monochorionic diamniotic twin gestation with imaging findings not meeting criteria for twin-twin transfusion syndrome. TWIN A Position: Maternal right in Vertex presentation Stone scale findings: - Bladder is visualized. - Stomach is visualized. - Kidneys are normal. - DVP: 5.1 cm, which is normal. - PCI: Paracentral - Biometry: 379g, c/w the 22nd percentile Doppler findings: - Ductus venosus: Normal waveform - UA: Elevated PI representing the 95th percentile - UV: Nonpulsatile - MCA PSV corresponding to 0.73 MoM, which is normal TWIN B Position: Maternal left in variable presentation Stone scale findings: - Bladder is visualized. - Stomach is visualized. - Kidneys are normal. - DVP: 3.1 cm, which is low normal - PCI: Marginal - Biometry: 378g, c/w the 22nd percentile Doppler findings: - Ductus venosus: Normal waveform - UA: Normal - UV: Nonpulsatile - MCA PSV corresponding to 0.88 MoM, which is normal WEIGHT DISCORDANCE: No substantial weight discordance today at 0.2%, Twin A minimally larger than B CERVIX: Long and closed, measuring up to 5.1 cm transvaginally. No vasa previa. Overall Impression: -Juan Diego Fulton is a 23 y.o. with Vivek twins at 21w2d -No evidence of twin-twin transfusion syndrome (TTTS) -No evidence of twin-anemia polycythemia sequence (TAPS) -No evidence of selective growth restriction (sFGR) -Aneuploidy screening/testing: low risk cfDNA / female -Maternal BMI 48 -PCOS -Rh negative -Depression Counseling: Today's imaging is very reassuring. Normal anatomy and echocardiogram without anomalies. Additionally, no evidence of twin-twin transfusion syndrome (TTTS), twin-anemia polycythemia sequence (TAPS), or selective growth restriction (sFGR). No interventions are recommended at this time. Can resume follow up with primary MFM. Summary of MFM Recommendations: Weekly US with primary ob provider to follow for TTTS, TAPS, or sFGR for 4 weeks. If remains reassuring can resume traditional TTTS screening with Q2 week ultrasounds. Serial growth assessment every 2-4 weeks Twice weekly ANFS by 32 weeks. Delivery goal 34-37 weeks at present. Referral back to [facility] if concern for TTTS, TAPS, sFGR. We offer laser until 27 weeks gestation. Family decision: Agrees with above recommendations and will go forward I spent 60 minutes in the encounter. Ayah Benton M.D. Maternal- Medicine Attending documented in [facility] encounterH[facility] Discharge instructions No data available for this section [facility]ructionsNot on filedocumented in this encounter [facility] filedocumented in this encounter [facility]Not on filedocumented in this encounter [facility]Not on filedocumented in this encounter [facility]ructionsNot on filedocumented in this encounter [facility]* Attachments The following attachments cannot be sent through Care Everywhere. * Preeclampsia (Pakistani) documented in this encounterProMedica Health SystemInstructionsNot on file documented in this encounterProRegional [facility] SystemProgress note No data available for this section [facility] Advance Directives No Advanced Directives Records Found [...] team informatio n (unrecognized section and content) Electrical Troubleshooter Relationship Specialty Start Date End Date Edith Ford MD [address] [place] [address] PCP - General Family Medicine 09/01/22 Electrical Troubleshooter Relationship Specialty Start Date End Date Edith Ford MD [address] [place] [address] PCP - General Family Medicine 09/01/22 Electrical Troubleshooter Relationship Specialty Start Date End Date Edith Ford MD [address] [facility] [place] [address] PCP - General Family Medicine 09/01/22 Electrical Troubleshooter Relationship Specialty Start Date End Date Edith Ford MD [address] [facility] [place] [address] PCP - General Family Medicine 09/01/22 Electrical Troubleshooter Relationship Specialty Start Date End Date Dhruv Recinos D.O. [address] [place] [address] [place] [phone] PCP - General External Obstetrics & Gynecology 05/28/24 Electrical Troubleshooter Relationship Specialty Start Date End Date Edith Ford MD [address] [place] [address] PCP - General Family Medicine 09/01/22 Electrical Troubleshooter Relationship Specialty Start Date End Date Edith Ford MD [address] [place] [address] PCP - General Family Medicine 09/01/22 INFORMATION SOURCE (unrecogn ized section and content) DATE CREATED AUTHOR 03/29/2022 [facility] DATE CREATED AUTHOR AUTHOR'S ORGANIZ ATION 05/13/2022 [facility] DATE CREATED AUTHOR AUTHOR'S ORGANIZ ATION 06/15/2024 [facility] DATE CREATED AUTHOR AUTHOR'S ORGANIZ ATION 06/16/2024 [facility] DATE CREATED AUTHOR AUTHOR'S ORGANIZ ATION 07/01/2024 [facility] DATE CREATED AUTHOR AUTHOR'S ORGANIZ ATION 07/07/2024 [facility] Reason for Visit (unrecogniz ed section and content) Reason Comments Amenorrhea Reason Comments Routine Visit Reason Comments growth discrepancy Reason Comments Monochorionic Twins Reason Comments [place] Tw[place] Baby A EIF FOR RECORDS PERTAINING TO PATIENTS WHO ARE [...] BE BASED ON THE PRIMARY CLINICAL RECORDS. [employer] provides no warranty or guarantee of the accuracy or completeness of information in this document.
[2024-07-16 09:36] LABS: Basophils Percent Auto 0.2 % (0.2-2.0); Eosinophils Absolute Auto 0.1 10^3/uL (0.0-0.7); Eosinophils Percent Auto 0.9 % (0.9-7.0); Hematocrit 31.1 % (36.0-48.0); Hemoglobin 9.9 g/dL (12.0-16.0); Immature Granulocytes Abs Auto 0.05 10^3/uL (0.00-0.03); Immature Granulocytes Pct Auto 0.4 % (0.0-0.5); Lymphocytes Absolute Auto 1.7 10^3/uL (1.2-3.8); Lymphocytes Percent Auto 12.7 % (20.5-60.0); Mean Corpuscular HGB Conc 31.8 g/dL (29.9-35.2); Mean Corpuscular Hemoglobin 26.2 pg (26.7-34.0); Mean Corpuscular Volume 82.3 fL (81.0-99.0); Mean Platelet Volume 11.5 fL (9.5-13.5); Monocytes Absolute Auto 0.5 10^3/uL (0.3-0.8); Neutrophils Absolute Auto 10.8 10^3/uL (1.4-6.5); Neutrophils Percent Auto 81.8 % (43.0-75.0); Platelet Count 243 10^3/uL (150-450); Red Blood Count 3.78 10^6/uL (4.20-5.40); Red Cell Distribution Width 15.3 % (11.0-15.0); White Blood Count 13.2 10^3/uL (4.0-11.0)
[2024-07-16 09:40] LABS: Glucose 1 Hour 157 mg/dL (<130)
== END 2024-07-16 08:17 | disposition home or self-care (01) ==
LOC: LAB 08:18
PROVIDERS: PCP Family Medicine; Visit Provider Obstetrics & Gynecology
DX: Z13.1 Encounter for screening for diabetes mellitus (principal)
CPT/HCPCS: 36415; 82950; 85025

== ENCOUNTER 2024-07-17 07:37 | Outpatient (RCR) | payer OTHER, SELFPAY ==
[2024-07-17 09:37] VITALS: BP 95/68; PULSE 103; TEMP 36.1; O2SAT 96
[2024-07-17] MEDS: RHO(D) IMMUNE GLOBULIN 1,500 UNIT SYRINGE 1500 UNIT IM (10:50)
== END 2024-07-19 08:36 | disposition home or self-care (01) ==
LOC: INF 07:37
PROVIDERS: PCP Family Medicine; Visit Provider Obstetrics & Gynecology
DX: O26.893 Other specified pregnancy related conditions, third trimester (principal); Z67.91 Unspecified blood type, Rh negative; Z3A.00 Weeks of gestation of pregnancy not specified
CPT/HCPCS: 36415; 86850; 86900; 86901; 96372; J2791

== ENCOUNTER 2024-07-30 20:55 | Emergency (ER) | payer OTHER, SELFPAY ==
[2024-07-30] VITALS (21 sets, daily range): BP systolic 100–115; BP diastolic 69–79; PULSE 94–108; TEMP 36.4–36.7; O2SAT 96–100; BMI 48.4
--- OUTSIDE RECORDS SUMMARY | 2024-07-30 21:04 | XMS_ITS | CCD ---
Author Organization [facility]formerly [facility] Care Team Providers Care [employer] Workers Name Role Phone Edith Ford Primary Care [...] Unavailable TALYA WOODARD Consulting Unavailable SHADY, DR ETJADA Consulting Unavailable HARPAL, DR KATHLEEN Primary Care Unavailable EILEEN ., JOURDAN Admitting Unavailable EILEEN ., JOURDAN Attending Unavailable EILEEN ., JOURDAN Consulting Unavailable HARPAL, DR KATHLEEN Primary Care Unavailable MAHAMED Ibanez, DR MALLORY Consulting Unavailable MAHAMED ., DR MALLORY Admitting Unavailable MAHAMED ., DR MALLORY Attending Unavailable SHADY, DR TEJADA Consulting Unavailable HARPAL, DR KATHLEEN Primary Care Unavailable MAHAMED Ibanez, DR MALLORY Admitting Unavailable MAHAMED Ibanez, DR MALLORY Attending Unavailable MAHAMED Ibanez, DR MALLORY Consulting Unavailable HARPAL, DR KATHLEEN Primary Care Unavailable KHARI, DR JESUS Cortez Admitting Unavailable KHARI, DR JESUS Cortez Attending Unavailable KHARI, DR JESUS Cortez Consulting Unavailable SHADY, DR TEJADA Consulting Unavailable HARPAL, DR KATHLEEN Primary Care Unavailable KHARI, DR JESUS Cortez Admitting Unavailable KHARI, DR JESUS Cortez Attending Unavailable KHARI, DR JESUS Cortez Consulting Unavailable HUY QUIÑONES Consulting Unavailable LUIS DONATO Unavailable Edith Ford MD Primary Care Provider Unavailable Primary Care Provider Unavailabl e Unavailable Primary Care Provider Unavailabl e Jorje Prudencio, Dhruv R. Primary Care Provider NICHOLE HYDE Attending Unavailable AYAH BENTON Referring Unavailab le JORJE, DHRUV R. Primary Care Unavailable JORJE, DHRUV R. Primary Care Unavailable MARY MENDEZ Attending Unavailable DOCHEVA, NIKOLINA P. Referring Unavailable NICHOLE HYDE Attending Unavailable JORJE, DHRUV R. Primary Care Unavailable DOCHEVA, NIKOLINA P. Referring Unavailable AYAH BENTON Attending Unavailab barry REEDMEENU Attending Unavailable AYAH BENTON Referring Unavailab le JORJE, DHRUV R. Primary Care Unavailable VANCE, TALYA L Referring Unavailable JORJE, DHRUV R Referring Unavailable JORJE, DHRUV R Referring Unavailable JORJE, DHRUV R Referring Unavailable AMERICO REDDY Attending Unavailable JORJE, DHRUV R Referring Unavailable JORJE, DHRUV R Referring Unavailable DOCHEVA, NIKOLINA P Attending Unavailable JORJE, DHRUV R Referring Unavailable JORJE, DHRUV R Referring Unavailable JORJE, DHRUV R Referring Unavailable DOCHEVA, NIKOLINA P Attending Unavailable VANCE, TALYA L Referring Unavailable VANCE, TALYA L Referring Unavailable DOCHEVA, NIKOLINA P Attending Unavailable VANCE, TALYA L Referring Unavailable JORJE, DHRUV Attending Unavailable VANCE, TALYA Attending Unavailable JORJE, DHRUV Attending Unavailable VANCE, TALYA Attending Unavailable Allergies Allergy Classification Reported Allergen(s) Allergy Type Date of Onset Reaction(s) Facility Theophylline (1 source) Theophylline Drug Allergy [address] [facility] (20 sources) SUMAtriptan; Translations: [sumatriptan] Drug Allergy 7 Pharyngeal swelling (finding), Shortness of breath [facility] (14 sources) Theophylline; Translations: [theophylline] Drug Allergy 5 Hives, Rash [facility] (1 source) Theophylline Drug Allergy 9 [facility] (11 sources) Theophyllines; Translations: [THEOPHYLLINES] Drug Intolerance 1 Hives, Rash [facility] (1 source) SUMAtriptan; Translations: [SUMATRIPTAN SUCCINATE] Drug Allergy 7 [facility] Repository Medications Current Medications Medication Drug Class(es) Dates Sig (Normalized) Sig (Original) acetaminophen 500 mg oral tablet (10 sources) take 2 tablets by mouth every six hours as needed for pain acetaminophen (TYLENOL EXTRA STRENGTH) 500 mg tablet Take 2 tablets (1,000 mg total) by mouth every 6 (six) hours as needed for pain. Active aspirin 81 mg delayed release oral tablet (14 sources) Platelet Aggregation Inhibitor, Nonsteroidal Anti-inflammatory Drug [...] Active folic acid 1 mg oral tablet (14 sources) Start: 04-26-2024 End: 11-22-2024 take 1 [...] hydrochloride 500 mg extended release oral tablet (17 sources) Biguanide Start: 05-08-2024 take 1 tablet [...] omeprazole 20 mg delayed release oral capsule (5 sources) Proton Pump Inhibitor Start: 05-07-2024 End: 09-04-2024 take 1 capsule by mouth before mealtime omeprazole (PriLOSEC) [address] capsule Indications: Gastroesophageal Reflux Disease , Heartburn Take 1 capsule (20 mg) by mouth in the morning. Take before meals. Do not crush or chew.. 30 capsule 3 05/07/2024 09/04/2024 Active ondansetron 4 mg disintegrating oral tablet (13 sources) Serotonin-3 Receptor Antagonist Start: 03-08-2024 End: [...] () 28 mg iron- 800 mcg tablet (10 sources) take 1 tablet by mouth in the morning PNV cmb#95-ferrous fumarate-FA () 28 mg iron- 800 mcg tablet Take 1 tablet by mouth in the morning. Active Vit w/Mu-Actfqumxf-AK (PNV PO) (1 source) Vit w/Gk-Hvrybnpfq-KK (PNV PO) Take by mouth. Active Vit-Fe Fumarate-FA ( Vitamins) 28-0.8 MG tablet (9 sources) Start: End: 026 take 1 tablet by mouth once daily Vit-Fe Fumarate-FA ( Vitamins) 28-0.8 MG tablet Indications: , unspecified gestational age , Encounter for supervision of normal first in first trimester Take 1 tablet by mouth Daily 30 tablet 11 03/08/2024 03/08/2025 Active sertraline 100 mg oral tablet (12 sources) Serotonin Reuptake Inhibitor Start: 024 End: 025 take 1 tablet by mouth once daily sertraline (Zoloft) 100 MG tablet Take 100 mg by mouth Daily 06/08/2023 03/08/2024 Discontinued Bactrim (1 source) Dihydrofolate Reductase Inhibitor Antibacterial, Sulfonamide Antimicrobial Start: 019 take 80 mg by mouth every twelve [...] trimester] Onset: 06-14-2024 Chronic Other complications of (8 sources) 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 ; Translations: [Other mental disorders complicating , unspecified trimester] Onset: 04-26-2024 04-26-2024 Episodic Other complications of (13 sources) heart echogenicity on obstetric ultrasound scan; [...] Translations: [24 weeks gestation of ] Onset: 07-17-2024 Episodic Residual codes; unclassified (1 source) 16 weeks gestation of ; Translations: [16 weeks gestation of ] Onset: 05-27-2024 Episodic Spondylosis; intervertebral disc disorders; other back [...] tic Twins] Onset: 05-31-2024 Unclassified (1 source) 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 Past or Other Problems Problem Classification Problem Date Documented Da te Episodic/Chronic Conditions associated with dizziness or vertigo (1 source) Dizziness and giddiness; Translations: [DIZZINESS AND GIDDINESS] Onset: 12-01-2021 Episodic Other aftercare (1 source) Other longterm (current) drug therapy; Translations: [OTH [employer] SYSTEMS ADMINISTRATOR CURRENT DRUG THERAPY] Onset: 01-24-2022 Episodic Other aftercare (1 source) snf (current) use of oral hypoglycemic drugs; Translations: [[employer] SYSTEMS ADMINISTRATOR USE ORAL HYPOGLYCEMIC DX] Onset: 12-22-2021 Episodic [...] NEGATED: Highlighted row has been ruled out!Unclassified (9 sources) No known active problems 06-29-2023 Results Test Name Value Interpretation Reference Range Facility GLUCOSE 1 HOURon 07-16-2024 Glucose [Mass/Vol] 157 mg/dL High NINF - 13 0 mg/dL [facility] Interpretation and review of laboratory results Abnormal [facility] Urinalysis macro (dipstick) panel (U)on 06-26-2024 Bilirubin, UA Negative Negative - 4(70) +++ mg/dL [facility] Blood, UA Negative Negative - 50 Duane/mcL [facility] Clarity, UA Clear [facility] re Color, UA Yellow [facility] Glucose, UA Negative Negative - 1999(110) ++++ mg/dL [facility] Interpretation and review of laboratory results Abnormal [facility] Ketones, UA Negative Negative - 160(16) ++++ mg/dL [facility] Leukocytes, UA Trace Negative - 500+++ Belinda/mcL [facility] Nitrite, UA Negative Negative - Positive [facility] pH, UA 7.5 5 - 9 [facility] Protein, UA Negative Negative - 1999(20) ++++ mg/dL [facility] Spec Grav, UA 1.02 1 - 1.[address] [facility] Urobilinogen, UA 0.2 0.2 - 12 mg/dL [facility] ECHOCARDIOGRAM FETALon 05-31 ECHOCARDIOGRAM [facility] [address] [place] [id number] ECHOCARDIOGRAM REPORT Name: JUAN DIEGO FULTON : 2000 ALT. ID: Age: 23 years Study Date: 05/31/2024 12:45:12 PM Patient Class: Outpatient [facility] Referring Physician: [facility] Diagnosing Physician: [id number] Meenu Reed MD Sous Chef Kitchen Manager: Marita Ko [facility] [[email or web address]] Procedure type: Complete 2D-51983, Complete Doppler and Spectral Doppler-49316, Color Doppler-20270, Umbilical Doppler-65114 and Multiple Gestation (Twins). Reason for test: [...] and Pulm (more content not included)... Normal [facility] Urinalysis macro (dipstick) panel (U)on 04-09-2024 Bilirubin, UA Negative Negative - 4(70) +++ mg/dL [facility] Blood, UA Negative Negative - 50 Duane/mcL [facility] Clarity, UA Clear [facility] re Color, UA Yellow [facility] e Glucose, UA Negative Negative - 1999(110) ++++ mg/dL [facility] Interpretation and review of laboratory results Abnormal [facility] re Ketones, UA Negative Negative - 160(16) ++++ mg/dL [facility] Leukocytes, UA Positive Negative - 500+++ Belinda/mcL [facility] Comment on above: large Nitrite, UA Negative Negative - Positive [facility] pH, UA 7 5 - 9 [facility] e Protein, UA Trace Negative - 1999(20) ++++ mg/dL [facility] Spec Grav, UA 1.02 1 - 1.[address] [facility] Urobilinogen, UA 0.2 0.2 - 12 mg/dL [facility] ALL CBC WITH AUTO DIFFon BASOPHILS ABSOLUTE AUTO 0 [facility] Basophils/100 WBC (Bld) 0.3 % 0.2 - 2.0 % [facility] Eosinophils/100 WBC (Bld) 0.9 % 0.9 - 7.0 % [facility] Erythrocyte distribution width (RBC) [Ratio] 14.1 % 11.0 - 15.0 % [facility] IMMATURE GRANULOCYTES ABS AUTO 0.05 High [facility] Immature granulocytes/100 WBC (Bld) 0.4 % 0.0 - 0.5 % [facility] Interpretation and review of laboratory results Abnormal [facility] re LYMPHOCYTES ABSOLUTE AUTO 2.6 [facility] Lymphocytes/100 WBC (Bld) 18.5 % Low 20.5 - 60.0 % [facility] MCH (RBC) [Entitic mass] 25.9 pg Low 26.7 - 34.0 pg [facility] MCHC (RBC) [Mass/Vol] 32.7 g/dL 29.9 - 35.2 g/dL [facility] MCV (RBC) [Entitic vol] 79.2 fL Low 81.0 - 99.0 fL [facility] MONOCYTES ABSOLUTE AUTO 0.6 [facility] Monocytes/100 WBC (Bld) 4 % 1.7 - 12.0 % [facility] NEUTROPHILS ABSOLUTE AUTO 10.7 High [facility] Neutrophils/100 WBC (Bld) 75.9 % High 43.0 - 75.0 % [facility] Platelet mean volume (Bld) [Entitic vol] 11.7 fL 9.5 - 13.5 fL [facility] TBH EO # 0.1 [facility] TB PLT 302 [facility] TB RBC 4.56 [facility] e [facility] WBC 14.1 High [facility] e [facility] CBC without diffon Rbc Mcv (Fl) By Automated Count 79.2 [facility] Laboratory - Hematology and Cell countson 03-15-2024 Hematocrit (Bld) [Volume fraction] 36.1 % [facility] Hemoglobin (Bld) [Mass/Vol] 11.8 g/dL [facility] No Panel Informationon 03-15 [facility] e Rubella IGG immune statuson 03-15-2024 Rubella immune IgG 0.9 [facility] Syphilis Total(Unknown Syphi lis Status)on 03-15-2024 Syphilis Non-Reactive [facility] Type and screenon 03-15-2024 Abo/Rh(D) Negative [facility] HCG ( test) Ql (U)o n 03-08-2024 Interpretation and review of laboratory results Abnormal [facility] re Preg Test, Ur Positive Negative [facility] Urinalysis macro (dipstick) panel (U)on 03-08-2024 Bilirubin, UA Negative Negative - 4(70) +++ mg/dL [facility] Blood, UA Negative Negative - 50 Duane/mcL [facility] Clarity, UA Clear [facility] Color, UA Yellow [facility] Glucose, UA Negative Negative - 1999(110) ++++ mg/dL [facility] Interpretation and review of laboratory results Abnormal [facility] Ketones, UA Negative Negative - 160(16) ++++ mg/dL [facility] Leukocytes, UA Moderate Negative - 500+++ Belinda/mcL [facility] Nitrite, UA Negative Negative - Positive [facility] pH, UA 7 5 - 9 [facility] Protein, UA Negative Negative - 1999(20) ++++ mg/dL [facility] Spec Grav, UA 1.015 1 - 1.[address] [facility] Urobilinogen, UA 0.2 0.2 - 12 mg/dL [facility] Referrals Officeon 3 Referrals Office [phone] [id number]# 1.00CD:127 Normal [facility] CULTURE URINEon 03-13-2022 CULTURE URINE Culture Observations : HEAVY GROWTH OF MIXED GENITAL TING. NO POTENTIAL PATHOGENS SEEN. Normal [facility] Comment on above: Performed By: #### C MP #### [facility] [address] [place] [address] Dr. Paz Burk ER URINE PROFILEon 3 Bilirubin Ql (U) Negative Normal NEGATIVE [facility] Comment on above: Performed By: #### P PEGGY HERNANDEZ, ERUR #### [facility] [address] [address] [address] Paz Burk Clarity (U) CLEAR Normal CLEAR [facility] Comment on above: Performed By: #### P FERNANDOUBREANARO, ERUR #### [facility] [address] [address] [address] Paz Burk Color (U) LT. YELLOW Normal YELLOW [facility] Comment on above: Performed By: #### P REGUVERONICAICRO, ERUR #### [facility] [address] [place] [address] Dr. Paz POST A micrscopic examination will be performed if indicated. Normal [facility] Comment on above: Performed By: #### P REGU, UMICRO, ERUR #### [facility] [address] [address] [address] Paz Burk Glucose Ql (U) Negative Normal NEGATIVE [facility] Comment on above: Performed By: #### P REGU, UMICRO, ERUR #### [facility] [address] [address] [address] Paz Burk Hemoglobin Ql (U) Negative Normal NEGATIVE [facility] Comment on above: Performed By: #### P REGU, UMICRO, ERUR #### [facility] [address] [address] [address] Paz Burk Ketones Ql (U) Negative Normal NEGATIVE [facility] Comment on above: Performed By: #### P REGU, UMICRO, ERUR #### [facility] [address] [address] [address] Paz Burk LEUKOCYTES MODERATE Abnormal NEGATIVE [facility] Comment on above: Performed By: #### P REGU, UMICRO, ERUR #### [facility] [address] [address] [address] Paz Burk Nitrite Ql (U) Negative Normal NEGATIVE [facility] Comment on above: Performed By: #### P REGU, UMICRO, ERUR #### [facility] [address] [address] [address] Paz Burk pH (U) 6.0 [pH] Normal 5-9 [facility] Comment on above: Performed By: #### P REGU, UMICRO, ERUR #### [facility] [address] [address] [address] Paz Burk SPEC GRAVITY 1.025 Normal 1.005-<=1.025 [facility] Comment on above: Performed By: #### P REGU, UMICRO, ERUR #### [facility] [address] [address] [address] Paz Burk UA PROTEIN Negative Normal NEGATIVE/ TRACE [facility] Comment on above: Performed By: #### P REGU, UMICRO, ERUR #### [facility] [address] [place] [address] Dr. Paz Burk UR MICRO IND INDICATED Normal [facility] Comment on above: Performed By: #### P REGU, UMICRO, ERUR #### [facility] [address] [address] [address] Paz Burk Urobilinogen Qn (U) 0.2 {Ara'U}/dL Normal 0.2 - 1. 0 [facility] Comment on above: Performed By: #### P REGU, UMICRO, ERUR #### [facility] [address] [place] [address] Dr. Paz Burk URon 03-13-2022 , QUAL Negative Normal NEGATIVE [facility] Comment on above: Performed By: #### P REGU, UMICRO, ERUR #### [facility] [address] [place] [address] Dr. Paz Burk URINE MICROSCOPIC ONLYon BACTERIA MODERATE Abnormal NONE SEEN [facility] Comment on above: Performed By: #### P REGU, UMICRO, ERUR #### [facility] [address] [place] [address] Dr. Paz Burk Bacteria identified Cx Nom (U) INDICATED Normal [facility] Comment on above: Performed By: #### P REGU, UMICRO, ERUR #### [facility] [address] [place] [address] Dr. Paz Burk CAST NONE SEEN Normal NONE SEEN [facility] Comment on above: Performed By: #### P REGU, UMICRO, ERUR #### [facility] [address] [address] [address] Paz Burk Crystals LM Nom (Urine sed) NONE SEEN Normal NONE SEEN [facility] Comment on above: Performed By: #### P REGU, UMICRO, ERUR #### [facility] [address] [place] [address] Dr. Paz Burk Epithelial cells LM Ql (Urine sed) MODERATE Abnormal NONE SEEN /RARE [facility] Comment on above: Performed By: #### P REGUVERONICAICRO, ERUR #### [facility] [address] [address] [address] Paz Burk MUCOUS TRACE Abnormal NONE SEEN [facility] Comment on above: Performed By: #### P REGUVEORNICAICRO, ERUR #### [facility] [address] [address] [address] Paz Burk RBC 0-2 Normal 0-2 [facility] Comment on above: Performed By: #### P REGU, VERONICAICRO, ERUR #### [facility] [address] [address] [address] Paz Burk WBC 50-75 Abnormal NONE SEEN [facility] Comment on above: Performed By: #### P PEGGY HERNANDEZ, ERUR #### [facility] [address] [address] [address] Paz Burk Coding Summary.on 03-04-2022 Coding Summary. CD:[id number] G h0bWw+PGhlYWQ+ZQ4SBXQ xR69mxDCuaT9OG4pJMD7I LFFGWLZYXJ4RUR8yqRR2N WamT0CpjfMd EcyeaROzNF20TBb9GKB1t ZjwUWqzxJ6mjUKvC7y5Ih BiPH74dR32KPfyAYFtRhM 3LjZpbjsgbWFy W4uxCbNldHCpTyu+PHRhY mxlIHdpZHRoPScxMDAlJy RsjYhvEW8zZo5lNHGpWCL vbGxhcHNlOiBj c8imXSYtVIaaAQ6xuJtvW 1MhgGH5GNOro4u7Lf73sR I+SCMlCMQ8vSsqQCmbm35 1RjDap5waYZT7 hJTpRUjvGLI3Y70ld4A6I UTyYPHnZUS2hNL0hO0moI dkcowtO7QmtHCfYxU5GGV 4sFXuyK4ccXqv qejczI6mBvs+Y22MDE0PX MBSHS3XAij7R3SdTkvfnE I+TD55ZVNwVN91gZTntIB qb1pcfRt1UyUz MLAhKGP8eSgjKSvpb0DmV OUaL01rqXJfn8X1PRPiwR fzgZCwLnBwlXA6wT0yEId umzejf7kjstla Tadqw9zldw80mA76Q58cE McxQDHmBBH1CIJiWGYbfH rbfl1ngC4lRh7+WSede7b ju8sspMk9PrYq JVOzgmKjtCgmEKQ0e3TeH j40Y7BfkFcdn3JpWee4fp 85xKIdu6R6nPI4SOtrLJX veE1vBHbzNjG9 PWQvScSgwP38tLQxWYkzV b8ukEhntVqpSN7dNAHgio jpPTNiuF4gHIVfwSPzpPo oHW9mSUAhbhsb k058IgZrRNN9SBObrLPaB 8PrhP1qCrUtTNQfZRVqA5 JtcKHbWOwvG368PQjqVyJ 5TFFlwkMzB1Wr LRSamCxmEwW2w9T9Tv2Pt 5GubpypPLN3MCiiAAVpIj U1IoEcYhM6R9FiRzw5FSN kzNncIH7bX2Cw ZEWptghxisecqTF3FXAlR NPuaE91mHUrUPodFw4xq5 X0k221KREgYUBmxI69St3 udDogMTBwdCBU fM3cjmhfc5yodcbnCeGcX GWkOSc4REl2NCQalEfgEl IwRGG7AzY5YES2qDLrnV5 vpKhncnnalQ2n Oyc+K58lnR9oFSG9GCA3f rrpGRBvvrUuNG96EV50J2 RyPjwvdGFibGU+PGRpdiB ccAmkFG1aLfVa w5gzb4VaEPmpJ8PeAAIbS KweOta2AQXcKGW9gNB4eB 8fTNLuDIhoo0A6fMA4C4T rswHkid7fu1dz YPHuSEllV41ejJEaa3U9Q WJukPJ9SGElhObpPyPgqN 93Oyc+VKIyqNubo7PaIov lf4wjn6qhcTj0 RyPeDONbmyYssKexHSC0w 7WvXa20V07zNDmtFYPrBB ObMYUiRPTqaJukar7cqT9 wIi8+PGNvbCB3 hBC0uV8mGDYdLoG9NZruC 034RkChwHIrKsuvz0woc7 pytKt6EuMeGHFlxtCcrJi jGXT2q8XdFi97 Z57lSKsbYUVtHEUiHCGgC SYzwAmzjt6mfC4iFx2+PC 7qu9mjji92tR46rXB+PHR qKCZ5mFdmBVqp YVDirU5uKHvyDhE1HHIyY kNlhU78xTNlKXpzGr6ujK dtlDndGH2nSEBvhixcj75 4DnCkp6jeFBAl wPCnZLfgCGS7Q99eb6U3Z KUmRSAsQXY1hGS0mT9npM lnbjogbGVmdDsgdmVydGl yMXovNGixC160 IHRvcDsnPlBhdGllbnQgT mDuEUh8G2GiYtf5YXPsfF vtJJ3qbGWcMWgkWq1gvMb qrKboIZ2fVFZw wkmln165OfQdu6lqQJYll XVkNDvhRGK5W57cb4O2WM KfOUNbEDA9uMK6hM7wlZn nbjogbGVmdDsg ozVxgTirHTazRPgtO316K HRvcDsnPkJpcnRoIERhdG I9TS71TB55eZLlo1P2zJC 8N5EuUJNjjdia mvamxTZ6DEWcXJKqtJ75O r1niNjzBx1tKWGaLKU9MQ VqfKYxW0TmiV9uScScGIU vFURqF7UrtAKj NFxvM266ANlmXzO8DKDhu hTsE6IiLCRheZzrMnC5a9 M7On4PL1B5HD63RY10jNS as9G6oWG4W8Qm WYCagsztfheigRT5FVTpA NQnhP37Re3uzHafNv7rDI AtJDF3QKWbxNGxJ3RlzU9 yOiAjMDAwMDAw R9LtrBGnUZqcA175HBazB mC3FGPsvnOqB9WbTNTinT thOhH5y4U8Wt4JYGr8ZX6 3YP54xWUol8L3 mXN8W1DkAJNeecbedppwi JH7VUJqKUAwhW16Ro0kqB umPm2wNDMhDKL7KMLbuWY cU4TueJ3hGzYj OKYzWPPqR8CdfADbJKrtQ 113LXknDqH8FPDyzrRwL2 PxUNWoqAkzLbC3f2S1Ps0 DJFZtZQ89CSL8 uRO3DJ70XF75L0MdXtzrj GFibGU+PHRhYmxlIHdpZH RoPScxMDAlJyBzdHlsZT0 rYd0gRIAcUOEy wFzbuTMvGoEjy8guCENxX FmuYP7ftVofY2HlcMH4TX Abi7x7An12Y82iB2ZpwTT +QYHggAU8fNU6 uP8oBsEaVqY0IWzfY794L gGwkMMrQpsah2rrb5fsfI n1StB1OSYsuiCbfBijJSU 8a6KpGo98C93y IHdpZHRoPSIxNSUiIHZhb Gvwhl1dpW3wFl2+PGNvbC M7wGT1uK4dAfAwZsO8HJb bA358EhUmfGQg Styqr8fxm6zdqHr0ToDsG GOwgxTymPxbCQS8y3WbVk 12V8TgnGcwz5BcGxd4ps4 2nKTgo8E6mBI4 K0ItXUBkfrydoJNktJdtP J9rYQQbkhqfUELbnW4yRX UiB5s2BsJeYvU8WFnaY1N xvkU3APHvyROe LBubPYW5Z57ty5C2LVKpC AXiBIK8cHM0yH4ddSmdpd ogbGVmdDsgdmVydGljYWw cTYxpP685LERr zNsxHXQjcW2hGRKefXSbw JcpEH3fHEAajxnvGgUTSQ 8qRSmPGv6IFuMwOhznbIF +ELVaLQN4dGyb ZTdtUKRhnT6iDRGhF5t4C bLfHtX0ICusM9EiPFCbpn ozSw79wV3gPtMnMrT3OIa eW1GxppR0PXPa nLOyKEhaBOJ6M61ip5K3N KZiJWQxVMH1gPN5xF8gaY lnbjogbGVmdDsgdmVydGl rJBywKIygI417 JAEarQhlZeZ5FeV7BaV6I Xu8F1KvRuw0ILLkmKzvRN 9rqWGmZPzeEx2uzVmaxOh zPR8oJVNbuuwt DESmwO8eITGpgWAjxVzvF T4fUSDumvcxp254RmYnGT Z5OYWdjGDqR3CbfP2xXgO kKIEiVLOiW2Pg hPIbANrvU116CUhiXkD8B TKphaXaT9PiMOMfjHexZu C8y6O1Ll9yOxXSMOEgtqe vdGQ+PHRkIHN0 qCoaQDdqNTMixG7zQHOaJ 9t3LoZcJzE6XXrtR4UdVF ZosnwoEh72aP0zDqGoShB 0TBfiT5QwdsJ6 TLCecAHfPTpiHUL7Z10xy 3L3XWSbVGXeYOF7iFY6mH 1hbGlnbjogbGVmdDsgdmV ydGljYWwtYWxp O203PHDdwLttBgEptHJhL TwvdGQ+XNCfNUO5rIfnNQ upJHVymD3fUBPrY2y4MmZ oRbL6KMybT4Zi FCIglcvjGe37dW6qXmMsS eB9HJyhD4YgpjQ3DLPlqX BzDKkfFPA9O97zu7C2PKP dCHJcMRO8zLH5 mD1mtSwjuwcviSTijZsur qTwiTmoPSgjQOssF758RR ViqZdfOs19qYOxrGdrpsA 1J4NnNzhqtND+ LN53VLAmCZ58qMMnbFEdj 4yypMk5PzFhCFCtJUD5yM vkCUmsf3EfDIFhJ89hoJH lq6Q8RXAqkKzk lHLjTjOcqFY2zA5oXYudr htvw9ewptdfDcgdy4gpaw 33zD28E13nYCncGPDaMBG zMCUiIHZhbGln nr0drQ0dGy4+ZSTdpEV6t ES7tV4jFuAbDnE2VRsyO5 50LuLeaRLtPplus5fgr5l xyZf6NhClQTTi jfUdvFsiEEB6c1WiLy17U 29sIHdpZHRoPSIyMCUiIH GhrWkjuf3yzJ0fMj0+PC9 sg6elwe02tV38 dHI+YMXxAOT2cOfvDKjaL PBgmI3xYKzcQzZ3NHQkQd GyuW21wGYsJTgdVz9cxFh weEuzPO5rPHLt xgytt184UaRnn6wxJDLzi MCaFLuxZTO0Y08ee6Q9XZ CqIMHjJIT9iUT6mV4jkIv nbjogbGVmdDsg klPsrYxpBMloJAdoQ248T GUprHrnZpPfwCRdO8hptn BJVO8nSaixyUT+PHRkIHN 0eWxlPSdwYWRk mW3tZCPcR9m5BjJrKbK0R OvpZ5QhweY4YVQyiEAiEN FfwDTIpL1pzzfhm6gfiml gIzAwMDAwMDt0 SRd6XNUebAwzGaFhNQQ5E jL2OYC0pCPcwN4caCggbg vygQ6xGss+RklOOjwvdGQ +IFXpBFA5nVet CNgoJPZqxK3hXHZwL6g9F oAvPlK8AEqnB4VunrR6OL BngVYtATGurQLSpU1ubur sq0zgzzpnHyZb UHXyILz7WOn9MFAxeCifV iImRZX5LvC2YWK0hNLqyB 4txKucekyteX0uVph+TVJ OOjwvdGQ+PHRk DBZ3hQzaFLtbBKRonS4hQ FGzS3w2NjSeNgW5KYfhS3 MtjiH5INIjnGWhHLZedWU XxX3ezwlem4no wylqVtQrVFZdEJa1EWp6O IIvpRssJwZsZER3TzZ3SE Q6dROcoJ2knDijjxvfbF0 wOyc+ZZK4KPA5 JO17LQ67J5NdAxluhUNyg +[id number] cHNl (more content not included)... Normal [facility] Consent for Treatmenton Consent for Treatment [id number]:127 Normal [facility] Covid-19 PCR (CVDTBH)on 01-28 SARS-CoV-2 (COVID-19) RNA IGNACIO+probe Ql (Unsp spec) Not detected Normal NOT DETECTED [facility] Comment on above: Result Comment: This test is not yet approved or cleared by the [place] FDA. When there are no FDA-approved or cleared tests available, and other criteria are met, FDA can make tests available under an emergency access mechanism called an Emergency Use Authorization (EUA). The EUA for this test is supported by the [place] of Health and Human Service's (HHS's) declaration [...] SARS-CoV-2. Performed By: #### C VDTB #### [facility] [address] [place] [address] Dr. Paz Burk INFLUENZA A AND B [facility] 02-23 [facility] SEE BELOW Normal [facility] Comment on above: Result Comment: Nega tive for Flu A protein angiten. Infection due to Flu A cannot be ruled out. Flu A angiten in the sample may be below the detection limit of the test. Performed By: #### I NFLUAB #### [facility] [address] [place] [address] Dr. Paz Burk [facility] SEE BELOW Normal [facility] Comment on above: Result Comment: Nega tive for Flu B protein antigen. Infection due to Flu B cannot be ruled out. Flu B antigen in the sample may be below the detection limit of the test. Performed By: #### I NFLUAB #### [facility] [address] [place] [address] Dr. Paz Burk INFLUENZA A AG Negative Normal NEGATIVE SEE COMMENT [facility] Comment on above: Performed By: #### I NFLUAB #### [facility] [address] [place] [address] Dr. Paz Burk INFLUENZA B AG Negative Normal NEGATIVE SEE COMMENT [facility] Comment on above: Performed By: #### I NFLUAB #### [facility] [address] [place] [address] Dr. Paz Burk Physician Orderon 02-14-2022 Physician Order [id number] .[id number]:127 Normal [facility] BNPon 01-20-2022 Natriuretic peptide B (Bld) [Mass/Vol] 125.0 pg/mL Normal <=450.0 [facility] Comment on above: Performed By: #### C VDTBH #### [facility] [address] [place] [address] Dr. Paz Burk CBC AUTO DIFFon 01-20-2022 BASO # 0.0 103/ul Normal 0.0-0.1 [facility] Comment on above: Performed By: #### C BC #### [facility] [address] [place] [address] Dr. Paz Burk Basophils/100 WBC (Bld) 0.2 % Normal 0.2-2.0 [facility] Comment on above: Performed By: #### C BC #### [facility] [address] [place] [address] Dr. Paz Burk EO # 0.2 103/ul Normal 0.0-0.7 [facility] Comment on above: Performed By: #### C BC #### [facility] [address] [place] [address] Dr. Paz Burk Eosinophils/100 WBC (Bld) 1.2 % Normal 0.9-7.0 [facility] Comment on above: Performed By: #### C BC #### [facility] [address] [place] [address] Dr. Paz Burk Erythrocyte distribution width (RBC) [Ratio] 14.4 % Normal 11.0-15.0 [facility] Comment on above: Performed By: #### C BC #### [facility] [address] [place] [address] Dr. Paz Burk Hematocrit (Bld) [Volume fraction] 37.3 % Normal 36.0-48.0 [facility] Comment on above: Performed By: #### C BC #### [facility] [address] [place] [address] Dr. Paz Burk Hemoglobin (Bld) [Mass/Vol] 12.3 g/dL Normal 12.0-16.0 [facility] Comment on above: Performed By: #### C BC #### [facility] [address] [address] [address] Paz Burk IG # 0.07 10e3/ul Critically high 0.00-0.03 [facility] Comment on above: Performed By: #### C BC #### [facility] [address] [address] [address] Paz Burk IG % 0.5 % Normal 0.0-0.5 [facility] Comment on above: Performed By: #### C BC #### [facility] [address] [place] [address] Dr. Paz Burk LYMPH # 3.0 103/ul Normal 1.2-3.8 [facility] Comment on above: Performed By: #### C BC #### [facility] [address] [place] [address] Dr. Paz Burk Lymphocytes/100 WBC (Bld) 21.2 % Normal 20.5-60.0 [facility] Comment on above: Performed By: #### C BC #### [facility] [address] [place] [address] Dr. Paz Burk MANUAL DIFF REQ NO Normal [facility] Comment on above: Performed By: #### C BC #### [facility] [address] [place] [address] Dr. Paz Burk MCH (RBC) [Entitic mass] 26.8 pg Normal 26.7-34.0 [facility] Comment on above: Performed By: #### C BC #### [facility] [address] [place] [address] Dr. Paz Burk MCHC (RBC) [Mass/Vol] 33.0 g/dL Normal 29.9-35.2 [facility] Comment on above: Performed By: #### C BC #### [facility] [address] [place] [address] Dr. Paz Burk MCV (RBC) [Entitic vol] 81.3 fL Normal 81.0-99.0 [facility] Comment on above: Performed By: #### C BC #### [facility] [address] [place] [address] Dr. Paz Burk MONO # 0.7 103/ul Normal 0.3-0.8 [facility] Comment on above: Performed By: #### C BC #### [facility] [address] [place] [address] Dr. Paz Burk Monocytes/100 WBC (Bld) 4.8 % Normal 1.7-12.0 [facility] Comment on above: Performed By: #### C BC #### [facility] [address] [place] [address] Dr. Paz Burk NEUT # 10.3 103/ul Critically high 1.4-6.5 [facility] Comment on above: Performed By: #### C BC #### [facility] [address] [place] [address] Dr. Paz Burk Neutrophils/100 WBC (Bld) 72.1 % Normal 43.0-75.0 [facility] Comment on above: Performed By: #### C BC #### [facility] [address] [place] [address] Dr. Paz Burk Platelet mean volume (Bld) [Entitic vol] 11.2 fL Normal 9.5-13.5 [facility] Comment on above: Performed By: #### C BC #### [facility] [address] [place] [address] Dr. Paz Burk PLT 277 103/ul Normal 150-450 [facility] Comment on above: Performed By: #### C BC #### [facility] [address] [place] [address] Dr. Paz Burk RBC 4.59 106/ul Normal 4.20-5.40 [facility] Comment on above: Performed By: #### C BC #### [facility] [address] [place] [address] Dr. Paz Burk WBC 14.3 103/ul Critically high 4.0-11.0 [facility] Comment on above: Performed By: #### C BC #### [facility] [address] [id number] Paz Burk CTA CHEST WO W [...] LUIS DONATO Date: 2022-01-20 03:10 Normal [facility] Covid-19 PCR (CVDTBH)on 12-29 SARS-CoV-2 (COVID-19) RNA IGNACIO+probe Ql (Unsp spec) Not detected Normal NOT DETECTED [facility] Comment on above: Result Comment: When diagnostic [...] for this test is supported by the [place] of Health and Human Service's declaration that [...] used). Performed By: #### C VDTBH #### [facility] [address] [place] [address] Dr. Paz Burk D-DIMERon 01-20-2022 D-DIMER 0.40 mg/L FEU Normal <=0.59 [facility] Comment on above: Performed By: #### C MP #### [facility] [address] [place] [address] Dr. Paz Burk D-DIMER COMMENTS SEE BELOW Normal [facility] Comment on above: Result Comment: [...] hospitalization. Performed By: #### C MP #### [facility] [address] [place] [address] Dr. Paz Burk PREG HCG QUALon 01-20-2022 , QUAL Negative Normal NEGATIVE [facility] Comment on above: Performed By: #### C MP #### [facility] [address] [place] [address] Dr. Paz Burk PROF 14(COMP METB)on 022 Albumin [Mass/Vol] 3.3 g/dL Critically low 3.4-5.0 [facility] Comment on above: Performed By: #### C VDTBH #### [facility] [address] [place] [address] Dr. Paz Burk Albumin/Globulin [Mass ratio] 0.8 {ratio} Normal [facility] Comment on above: Performed By: #### C VDTBH #### [facility] [address] [place] [address] Dr. Paz Burk ALP [Catalytic activity/Vol] 95 U/L Normal 46-116 [facility] Comment on above: Performed By: #### C VDTBH #### [facility] [address] [place] [address] Dr. Paz Burk ALT [Catalytic activity/Vol] 15 U/L Normal 14-59 [facility] Comment on above: Performed By: #### C VDTBH #### [facility] [address] [place] [address] Dr. Paz Burk Anion gap [Moles/Vol] 10.4 mmol/L Normal [facility] Comment on above: Performed By: #### C VDTBH #### [facility] [address] [place] [address] Dr. Paz Burk AST [Catalytic activity/Vol] 10 U/L Critically low 15-37 [facility] Comment on above: Performed By: #### C VDTBH #### [facility] [address] [place] [address] Dr. Paz Burk Bilirubin [Mass/Vol] 0.1 mg/dL Critically low 0.2-1.0 [facility] Comment on above: Performed By: #### C VDTBH #### [facility] [address] [place] [address] Dr. Paz Burk Calcium [Mass/Vol] 8.8 mg/dL Normal 8.5-10.1 [facility] Comment on above: Performed By: #### C VDTBH #### [facility] [address] [place] [address] Dr. Paz Burk Chloride [Moles/Vol] 105 mmol/L Normal 98-107 [facility] Comment on above: Performed By: #### C VDTBH #### [facility] [address] [place] [address] Dr. Paz Burk CO2 [Moles/Vol] 25.3 mmol/L Normal 21.0-32.0 [facility] Comment on above: Performed By: #### C VDTBH #### [facility] [address] [place] [address] Dr. Paz Burk Creatinine [Mass/Vol] 0.83 mg/dL Normal 0.55-1.02 [facility] Comment on above: Performed By: #### C VDTBH #### [facility] [address] [address] [address] Paz Burk EGFR-AF GIBRALTARIAN >60 Normal >=60 [facility] Comment on above: Performed By: #### C VDTBH #### [facility] [address] [place] [address] Dr. Paz Burk EGFR-NON AF GIBRALTARIAN >60 Normal >=60 [facility] Comment on above: Performed By: #### C VDTBH #### [facility] [address] [place] [address] Dr. Paz Burk Globulin (S) [Mass/Vol] 4.1 g/dL Normal [facility] Comment on above: Performed By: #### C VDTBH #### [facility] [address] [place] [address] Dr. Paz Burk Glucose [Mass/Vol] 102 mg/dL Normal 74-106 [facility] Comment on above: Performed By: #### C VDTBH #### [facility] [address] [place] [address] Dr. Paz Burk Potassium [Moles/Vol] 3.7 mmol/L Normal 3.5-5.1 [facility] Comment on above: Performed By: #### C VDTBH #### [facility] [address] [place] [address] Dr. Paz Burk Protein [Mass/Vol] 7.4 g/dL Normal 6.4-8.2 [facility] Comment on above: Performed By: #### C VDTBH #### [facility] [address] [place] [address] Dr. Paz Burk Sodium [Moles/Vol] 137 mmol/L Normal 136-145 [facility] Comment on above: Performed By: #### C VDTBH #### [facility] [address] [place] [address] Dr. Paz Burk Urea nitrogen [Mass/Vol] 11.0 mg/dL Normal 7.0-18.0 [facility] Comment on above: Performed By: #### C VDTBH #### [facility] [address] [place] [address] Dr. Paz Burk Urea nitrogen/Creatinine [Mass ratio] 13.3 mg/mg Normal [facility] Comment on above: Performed By: #### C VDTBH #### [facility] [address] [place] [address] Dr. Paz Burk TROPONIN, HIGH SENSITIVITYon 01-20-2022 HSTROP 4.2 pg/mL Normal 4.0-51.3 [facility] Comment on above: Result Comment: CUT- OFF POINTS HAVE BEEN ESTABLISHED BASED ON THE FOURTH UNIVERSAL DEFINITIONS OF MYOCARDIAL INFARCTION. THE UPPER REFERENCE LIMIT (URL) OF TROPONIN, DEFINED THE 99TH PERCENTILE OF cTnI DISTRIBUTION IN A REFERENCE POPULATION, HAS BEEN CONFIRMED THE DECISION THRESHOLD FOR [place] DIAGNOSIS. Performed By: #### C #### [facility] [address] [place] [address] Dr. Paz Burk HSTROP <4.0 Normal 4.0-51.3 [facility] Comment on above: Result Comment: CUT- OFF POINTS HAVE BEEN ESTABLISHED BASED ON THE FOURTH UNIVERSAL DEFINITIONS OF MYOCARDIAL INFARCTION. THE UPPER REFERENCE LIMIT (URL) OF TROPONIN, DEFINED THE 99TH PERCENTILE OF cTnI DISTRIBUTION IN A REFERENCE POPULATION, HAS BEEN CONFIRMED THE DECISION THRESHOLD FOR [place] DIAGNOSIS. Performed By: #### C VDTBH #### [facility] [address] [place] [address] Dr. Paz Burk XR CHEST 1 Von [...] Cornel QUIÑONES Date: 2022-01-19 23:43 Normal [facility] CBC AUTO DIFFon 12-21-2021 BASO # 0.0 103/ul Normal 0.0-0.1 [facility] Comment on above: Performed By: #### C VDTBH #### [facility] [address] [place] [address] Dr. Paz Burk Basophils/100 WBC (Bld) 0.3 % Normal 0.2-2.0 [facility] Comment on above: Performed By: #### C VDTBH #### [facility] [address] [place] [address] Dr. Paz Burk EO # 0.2 103/ul Normal 0.0-0.7 [facility] Comment on above: Performed By: #### C VDTBH #### [facility] [address] [place] [address] Dr. Paz Burk Eosinophils/100 WBC (Bld) 1.2 % Normal 0.9-7.0 [facility] Comment on above: Performed By: #### C VDTBH #### [facility] [address] [place] [address] Dr. Paz Burk Erythrocyte distribution width (RBC) [Ratio] 14.4 % Normal 11.0-15.0 [facility] Comment on above: Performed By: #### C VDTBH #### [facility] [address] [place] [address] Dr. Paz Burk Hematocrit (Bld) [Volume fraction] 37.7 % Normal 36.0-48.0 [facility] Comment on above: Performed By: #### C VDTBH #### [facility] [address] [place] [address] Dr. Paz Burk Hemoglobin (Bld) [Mass/Vol] 12.0 g/dL Normal 12.0-16.0 [facility] Comment on above: Performed By: #### C VDTBH #### [facility] [address] [place] [address] Dr. Paz Burk IG # 0.06 10e3/ul Critically high 0.00-0.03 [facility] Comment on above: Performed By: #### C VDTBH #### [facility] [address] [place] [address] Dr. Paz Burk IG % 0.4 % Normal 0.0-0.5 [facility] Comment on above: Performed By: #### C VDTBH #### [facility] [address] [place] [address] Dr. Paz Burk LYMPH # 3.1 103/ul Normal 1.2-3.8 [facility] Comment on above: Performed By: #### C VDTBH #### [facility] [address] [place] [address] Dr. Paz Burk Lymphocytes/100 WBC (Bld) 21.8 % Normal 20.5-60.0 [facility] Comment on above: Performed By: #### C VDTBH #### [facility] [address] [place] [address] Dr. Paz Burk MANUAL DIFF REQ NO Normal [facility] Comment on above: Performed By: #### C VDTBH #### [facility] [address] [place] [address] Dr. Paz Burk MCH (RBC) [Entitic mass] 26.1 pg Critically low 26.7-34.0 [facility] Comment on above: Performed By: #### C VDTBH #### [facility] [address] [place] [address] Dr. Paz Burk MCHC (RBC) [Mass/Vol] 31.8 g/dL Normal 29.9-35.2 [facility] Comment on above: Performed By: #### C VDTBH #### [facility] [address] [place] [address] Dr. Paz Burk MCV (RBC) [Entitic vol] 82.0 fL Normal 81.0-99.0 [facility] Comment on above: Performed By: #### C VDTBH #### [facility] [address] [place] [address] Dr. Paz Burk MONO # 0.8 103/ul Normal 0.3-0.8 [facility] Comment on above: Performed By: #### C VDTBH #### [facility] [address] [place] [address] Dr. Paz Burk Monocytes/100 WBC (Bld) 5.9 % Normal 1.7-12.0 [facility] Comment on above: Performed By: #### C VDTBH #### [facility] [address] [place] [address] Dr. Paz Burk NEUT # 10.0 103/ul Critically high 1.4-6.5 [facility] Comment on above: Performed By: #### C VDTBH #### [facility] [address] [place] [address] Dr. Paz Burk Neutrophils/100 WBC (Bld) 70.4 % Normal 43.0-75.0 [facility] Comment on above: Performed By: #### C VDTBH #### [facility] [address] [place] [address] Dr. Paz Burk Platelet mean volume (Bld) [Entitic vol] 11.0 fL Normal 9.5-13.5 [facility] Comment on above: Performed By: #### C VDTBH #### [facility] [address] [place] [address] Dr. Paz Burk PLT 308 103/ul Normal 150-450 [facility] Comment on above: Performed By: #### C VDTBH #### [facility] [address] [place] [address] Dr. Paz Burk RBC 4.60 106/ul Normal 4.20-5.40 [facility] Comment on above: Performed By: #### C VDTBH #### [facility] [address] [place] [address] Dr. Paz Burk WBC 14.2 103/ul Critically high 4.0-11.0 [facility] Comment on above: Performed By: #### C VDTBH #### [facility] [address] [place] [address] Dr. Paz Burk PROF 14(COMP METB)on 022 Albumin [Mass/Vol] 3.4 g/dL Normal 3.4-5.0 [facility] Comment on above: Performed By: #### C MP #### [facility] [address] [place] [address] Dr. Paz Burk Albumin/Globulin [Mass ratio] 0.8 {ratio} Normal [facility] Comment on above: Performed By: #### C MP #### [facility] [address] [place] [address] Dr. Paz Burk ALP [Catalytic activity/Vol] 86 U/L Normal 46-116 [facility] Comment on above: Performed By: #### C MP #### [facility] [address] [place] [address] Dr. Paz Burk ALT [Catalytic activity/Vol] 26 U/L Normal 14-59 [facility] Comment on above: Performed By: #### C MP #### [facility] [address] [place] [address] Dr. Paz Burk Anion gap [Moles/Vol] 14.6 mmol/L Normal [facility] Comment on above: Performed By: #### C MP #### [facility] [address] [place] [address] Dr. Paz Burk AST [Catalytic activity/Vol] 15 U/L Normal 15-37 [facility] Comment on above: Performed By: #### C MP #### [facility] [address] [place] [address] Dr. Paz Burk Bilirubin [Mass/Vol] 0.2 mg/dL Normal 0.2-1.0 [facility] Comment on above: Performed By: #### C MP #### [facility] [address] [place] [address] Dr. Paz Burk Calcium [Mass/Vol] 8.5 mg/dL Normal 8.5-10.1 [facility] Comment on above: Performed By: #### C MP #### [facility] [address] [place] [address] Dr. Paz Burk Chloride [Moles/Vol] 104 mmol/L Normal 98-107 [facility] Comment on above: Performed By: #### C MP #### [facility] [address] [address] [address] Paz Burk CO2 [Moles/Vol] 26.5 mmol/L Normal 21.0-32.0 [facility] Comment on above: Performed By: #### C MP #### [facility] [address] [address] [address] Paz Burk Creatinine [Mass/Vol] 0.88 mg/dL Normal 0.55-1.02 [facility] Comment on above: Performed By: #### C MP #### [facility] [address] [place] [address] Dr. Paz Burk EGFR-AF GIBRALTARIAN >60 Normal >=60 [facility] Comment on above: Performed By: #### C MP #### [facility] [address] [address] [address] Paz Burk EGFR-NON AF GIBRALTARIAN >60 Normal >=60 [facility] Comment on above: Performed By: #### C MP #### [facility] [address] [place] [address] Dr. Paz Burk Globulin (S) [Mass/Vol] 4.4 g/dL Normal [facility] Comment on above: Performed By: #### C MP #### [facility] [address] [place] [address] Dr. Paz Burk Glucose [Mass/Vol] 116 mg/dL Critically high 74-106 [facility] Comment on above: Performed By: #### C MP #### [facility] [address] [address] [address] Paz Burk Potassium [Moles/Vol] 3.1 mmol/L Critically low 3.5-5.1 [facility] Comment on above: Performed By: #### C MP #### [facility] [address] [place] [address] Dr. Paz Burk Protein [Mass/Vol] 7.8 g/dL Normal 6.4-8.2 [facility] Comment on above: Performed By: #### C MP #### [facility] [address] [place] [address] Dr. Paz Burk Sodium [Moles/Vol] 142 mmol/L Normal 136-145 [facility] Comment on above: Performed By: #### C MP #### [facility] [address] [place] [address] Dr. Paz Burk Urea nitrogen [Mass/Vol] 8.0 mg/dL Normal 7.0-18.0 [facility] Comment on above: Performed By: #### C MP #### [facility] [address] [place] [address] Dr. Paz Bukr Urea nitrogen/Creatinine [Mass ratio] 9.1 mg/mg Normal [facility] Comment on above: Performed By: #### C MP #### [facility] [address] [place] [address] Dr. Paz Burk PROTIMEon 12-21-2021 INR Coag (PPP) [Relative time] 1.05 {INR} Normal [facility] Comment on above: Performed By: #### P TT, PT #### [facility] [facility] [address] [place] [address] Dr. Paz Burk INR GUIDELINES SEE BELOW Normal [facility] Comment on above: Result Comment: NANO RED INR: 2.0 - 3.0 CONDITIONS NOT LISTED BELOW 2.5 - 3.5 FOR PROSTHETIC HEART VALVE REPLACEMENT 2.5 - 3.5 RECURRENT THROMBOSIS Performed By: #### P TT, PT #### [facility] [address] [place] [address] Dr. Paz Burk PT Coag (PPP) [Time] 11.3 s Normal 9.0-11.6 [facility] Comment on above: Performed By: #### P TT, PT #### [facility] [address] [place] [address] Dr. Paz Burk PTTon 12-21-2021 aPTT Coag (Bld) [Time] 32.5 s Normal 22.3-36.2 [facility] Comment on above: Performed By: #### P TT, PT #### [facility] [address] [place] [address] Dr. Paz Burk [facility] 02 MODE ROOM AIR [facility] Comment on above: Performed By: #### C VDTBH #### [facility] [address] [place] [address] Dr. Paz Burk ALLENS TEST Positive [facility] Comment on above: Performed By: #### C VDTBH #### [facility] [address] [place] [address] Dr. Paz Burk Base excess Calc (Bld) [Moles/Vol] 0.7 mmol/L Normal -2.0-2.0 [facility] Comment on above: Performed By: #### C VDTBH #### [facility] [address] [place] [address] Dr. Paz Burk BIPAP PRESSURE [facility] Comment on above: Performed By: #### C VDTBH #### [facility] [address] [place] [address] Dr. Paz Burk CPAP [facility] Comment on above: Performed By: #### C VDTBH #### [facility] [address] [place] [address] Dr. Paz Burk FIO2 [facility] Comment on above: Performed By: #### C VDTBH #### [facility] [address] [place] [address] Dr. Paz Burk HCO3 (Bld) [Moles/Vol] 25.3 mmol/L Normal 22.0-26.0 [facility] Comment on above: Performed By: #### C VDTBH #### [facility] [address] [place] [address] Dr. Paz Burk LPM [facility] Comment on above: Performed By: #### C VDTBH #### [facility] [address] [place] [address] Dr. Paz Burk MINUTE VOLUME Normal [facility] Comment on above: Performed By: #### C VDTBH #### [facility] [address] [address] [address] Paz Burk Oxygen (Bld) [Partial pressure] 96.1 mm[Hg] Normal 80.0-100.0 [facility] Comment on above: Performed By: #### C VDTBH #### [facility] [address] [place] [address] Dr. Paz Burk Oxygen saturation in Blood 99.0 % Normal 95.0-100.0 [facility] Comment on above: Performed By: #### C VDTBH #### [facility] [address] [place] [address] Dr. Paz Burk PCO2 35.8 mmHg Normal 35.0-45.0 [facility] Comment on above: Performed By: #### C VDTBH #### [facility] [address] [place] [address] Dr. Paz Burk [facility] Comment on above: Performed By: #### C VDTBH #### [facility] [address] [place] [address] Dr. Paz Burk pH (Bld) 7.448 [pH] Normal 7.350-7.450 [facility] Comment on above: Performed By: #### C VDTBH #### [facility] [address] [place] [address] Dr. Paz Burk PIP [facility] Comment on above: Performed By: #### C VDTBH #### [facility] [address] [place] [address] Dr. Paz Burk PS [facility] Comment on above: Performed By: #### C VDTBH #### [facility] [address] [place] [address] Dr. Paz Burk PUNCTURE SITE RR [facility] Comment on above: Performed By: #### C VDTBH #### [facility] [address] [place] [address] Dr. Paz Burk RATE [facility] Comment on above: Performed By: #### C VDTBH #### [facility] [address] [address] [address] Paz Burk VENT MODE Normal [facility] Comment on above: Performed By: #### C VDTBH #### [facility] [address] [address] [address] Paz Bukr NC Normal [facility] Comment on above: Performed By: #### C VDTBH #### [facility] [address] [place] [address] Dr. Paz Bukr CULTURE URINEon 08-21-2021 CULTURE URINE Culture Observations : MODERATE GROWTH OF MIXED GENITAL TING. NO POTENTIAL PATHOGENS SEEN. Normal [facility] Comment on above: Performed By: #### C MP #### [facility] [address] [place] [address] Dr. Paz Burk ER URINE PROFILEon Bilirubin Ql (U) Negative Normal NEGATIVE [facility] Comment on above: Performed By: #### C MP #### [facility] [address] [place] [address] Dr. Paz Burk Clarity (U) CLEAR Normal CLEAR [facility] Comment on above: Performed By: #### C MP #### [facility] [address] [place] [address] Dr. Paz Burk Color (U) LT. YELLOW Normal YELLOW [facility] Comment on above: Performed By: #### C MP #### [facility] [address] [place] [address] Dr. Paz Burk [facility] A micrscopic examination will be performed if indicated. Normal [facility] Comment on above: Performed By: #### C MP #### [facility] [address] [place] [address] Dr. Paz Burk Glucose Ql (U) Negative Normal NEGATIVE [facility] Comment on above: Performed By: #### C MP #### [facility] [address] [place] [address] Dr. Paz Burk Hemoglobin Ql (U) Negative Normal NEGATIVE [facility] Comment on above: Performed By: #### C MP #### [facility] [address] [place] [address] Dr. Paz Burk Ketones Ql (U) Negative Normal NEGATIVE [facility] Comment on above: Performed By: #### C MP #### [facility] [address] [place] [address] Dr. Paz Burk LEUKOCYTES LARGE Abnormal NEGATIVE [facility] Comment on above: Performed By: #### C MP #### [facility] [address] [place] [address] Dr. Paz Burk Nitrite Ql (U) Negative Normal NEGATIVE [facility] Comment on above: Performed By: #### C MP #### [facility] [address] [place] [address] Dr. Paz Burk pH (U) 7.5 [pH] Normal 5-9 [facility] Comment on above: Performed By: #### C MP #### [facility] [address] [place] [address] Dr. Paz Burk SPEC GRAVITY 1.020 Normal 1.005-<=1.025 [facility] Comment on above: Performed By: #### C MP #### [facility] [address] [place] [address] Dr. Paz Burk UA PROTEIN Negative Normal NEGATIVE/ TRACE [facility] Comment on above: Performed By: #### C MP #### [facility] [address] [place] [address] Dr. Paz Burk UR MICRO IND INDICATED Normal [facility] Comment on above: Performed By: #### C MP #### [facility] [address] [place] [address] Dr. Paz Burk Urobilinogen Qn (U) 0.2 {Ara'U}/dL Normal 0.2 - 1. 0 [facility] Comment on above: Performed By: #### C MP #### [facility] [address] [place] [address] Dr. Paz Burk URon 08-21-2021 , QUAL Negative Normal NEGATIVE [facility] Comment on above: Performed By: #### C MP #### [facility] [address] [place] [address] Dr. Paz Burk URINE MICROSCOPIC ONLYon BACTERIA SMALL Abnormal NONE SEEN [facility] Comment on above: Performed By: #### C MP #### [facility] [address] [place] [address] Dr. Paz Burk Bacteria identified Cx Nom (U) INDICATED Normal [facility] Comment on above: Performed By: #### C MP #### [facility] [address] [place] [address] Dr. Paz Burk CAST NONE SEEN Normal NONE SEEN [facility] Comment on above: Performed By: #### C MP #### [facility] [address] [place] [address] Dr. Paz Burk Crystals LM Nom (Urine sed) NONE SEEN Normal NONE SEEN [facility] Comment on above: Performed By: #### C MP #### [facility] [address] [place] [address] Dr. Paz Burk Epithelial cells LM Ql (Urine sed) FEW Abnormal NONE SEEN /RARE [facility] Comment on above: Performed By: #### C MP #### [facility] [address] [place] [address] Dr. Paz Burk MUCOUS NONE SEEN Normal NONE SEEN [facility] Comment on above: Performed By: #### C MP #### [facility] [address] [place] [address] Dr. Paz Burk RBC NONE SEEN Abnormal 0-2 [facility] Comment on above: Performed By: #### C MP #### [facility] [address] [place] [address] Dr. Paz Burk WBC 5-10 Abnormal NONE SEEN [facility] Comment on above: Performed By: #### C MP #### [facility] [address] [place] [address] Dr. Paz Burk Vital Signs Date Time Vital Sign Value Performing Clinician Facility 07-17-2024 14:16-040 Body height 167.6 cm [email or web address] 07-17-2024 14:16-0400 Body mass index (BMI) [Ratio] 50.92 kg/m2 Americo Reddy MD Work Phone: [facility] 07-17-2024 14:16-0400 Body weight 143.02 kg Americo Reddy MD Work Phone: [facility] 07-17-2024 14:16-0400 Diastolic blood pressure 72 mm[Hg] Americo Reddy MD Work Phone: [facility] 07-17-2024 14:16-0400 Heart rate 92 /min Americo Reddy MD Work Phone: [facility] 07-17-2024 14:16-0400 Systolic blood pressure 108 mm[Hg] Americo Reddy MD Work Phone: [facility] 06-26-2024 15:44-0400 Body mass index (BMI) [Ratio] 49.67 kg/m2 Dhruv Jorje DO Work Phone: [facility] 06-26-2024 15:44-0400 Body weight 139.59 kg Dhruv Jorje DO Work Phone: [facility] 06-26-2024 15:44-0400 Diastolic blood pressure 72 mm[Hg] Dhruv Jorje DO Work Phone: [facility] 06-26-2024 15:44-0400 Systolic blood pressure 108 mm[Hg] Dhruv Jorje DO Work Phone: [facility] 06-21-2024 09:02-0400 Body height 167.6 cm Kvng Hugo MD Work Phone: [facility] 06-21-2024 09:02-0400 Body mass index (BMI) [Ratio] 49.67 kg/m2 Kvng Hugo MD Work Phone: [facility] 06-21-2024 09:02-0400 Body weight 139.53 kg Kvng Hugo MD Work Phone: [facility] 06-21-2024 09:02-0400 Diastolic blood pressure 75 mm[Hg] Kvng Hugo MD Work Phone: [facility] 06-21-2024 09:02-0400 Heart rate 91 /min Kvng Hugo MD Work Phone: [facility] 06-21-2024 09:02-0400 Systolic blood pressure 111 mm[Hg] Kvng Hugo MD Work Phone: [facility] 05-27-2024 16:24-0400 Diastolic blood pressure 69 mm[Hg] Kvng Hugo MD Work Phone: [facility] 05-27-2024 16:24-0400 Heart rate 86 /min Kvng Hugo MD Work Phone: [facility] 05-27-2024 16:24-0400 Systolic blood pressure 106 mm[Hg] Kvng Hugo MD Work Phone: [facility] 04-09-2024 11:34-0500 Body mass index (BMI) [Ratio] 45.52 kg/m2 Dhruv Jorje DO Work Phone: [facility] 04-09-2024 11:34-0500 Body weight 127.91 kg Dhruv Jorje DO Work Phone: [facility] 04-09-2024 11:34-0500 Diastolic blood pressure 72 mm[Hg] Dhruv Jorje DO Work Phone: [facility] 04-09-2024 11:34-0500 Systolic blood pressure 116 mm[Hg] Dhruv Jorje DO Work Phone: [facility] 03-08-2024 09:24-0500 Body mass index (BMI) [Ratio] 45.1 kg/m2 [facility] Nurse [facility] 03-08-2024 09:24-0500 Body weight 126.73 kg [facility] Nurse [facility] 03-08-2024 09:24-0500 Diastolic blood pressure 70 mm[Hg] [facility] Nurse [facility] 03-08-2024 09:24-0500 Systolic blood pressure 110 mm[Hg] [facility] 06-29-2020 09:02-0400 Body height 167.64 cm Edith Ford Work Phone: [facility] 06-29-2020 09:02-0400 Body mass index (BMI) [Ratio] 48.2 kg/m2 Edith Ford Work Phone: [facility] 06-29-2020 09:02-0400 Body temperature 97.8 [degF] Edith Ford Work Phone: [facility] 06-29-2020 09:02-0400 Body weight 135.65 kg Edith Ford Work Phone: [facility] 06-29-2020 09:02-0400 Diastolic blood pressure 73 mm[Hg] Edith Ford Work Phone: [facility] 06-29-2020 09:02-0400 Heart rate 69 /min Edith Ford Work Phone: [facility] 06-29-2020 09:02-0400 Respiratory rate 16 /min Edith Ford Work Phone: [facility] 06-29-2020 09:02-0400 SaO2% (BldA) [Mass fraction] 98 % Edith Ford Work Phone: [facility] 06-29-2020 09:02-0400 Systolic blood pressure 130 mm[Hg] Edith Ford Work Phone: [facility] Encounters Encounter Date Encounter Type Care Provider Facility Start: 07-18-2024 End: 07-18-2024 ambulatory TALYA WOODARD Not Available Start: 07-17-2024 End: 07-17-2024 Office outpatient visit 25 minutes Americo Reddy MD Work Phone: [facility] Comment on above: 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 (Primary Dx) Start: 07-17-2024 End: 07-17-2024 Orders Only Elizabeth Wang RN [facility] Comment on above: Monochorionic diamni otic twin gestation in third trimester (Primary Dx) Start: 07-16-2024 End: 07-16-2024 Clinisync Result Encounter Dhruv Jorje DO Work Phone: [facility] Unsolicited Start: 07-16-2024 End: 07-16-2024 Clinisync Result Encounter Dhruv Jorje DO Work Phone: [facility] Unsolicited Start: 07-05-2024 End: 07-05-2024 ambulatory DHRUV R JORJE [facility] Start: 06-26-2024 End: 06-26-2024 ambulatory DHRUV JORJE Not Available Start: 06-26-2024 End: 06-26-2024 Office [...] Only Lara Borrero RN [facility] Comment on above: 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 (Primary Dx); Echogenic intracardiac focus of fetus on ultrasound; 24 weeks gestation of Start: 06-21-2024 End: 06-21-2024 Telephone encounter Oneida Brunson [facility] Start: 06-21-2024 End: 06-21-2024 Office outpatient visit 25 minutes Kvng Hugo MD Work Phone: [facility] Comment on above: 24 weeks gestation o f (Primary Dx); Monochorionic diamniotic twin gestation in second trimester Start: 06-21-2024 End: 06-21-2024 ambulatory [facility] Start: 06-14-2024 End: 06-14-2024 ambulatory [facility] Start: 06-12-2024 End: 06-12-2024 Orders Only Elizabeth Wang RN [facility] Comment on above: 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 (Primary Dx); Echogenic intracardiac focus of fetus on ultrasound Start: 06-07-2024 End: 06-07-2024 ambulatory TALYA Ely [facility] Start: 05-31-2024 End: 05-31-2024 Office outpatient new 60 minutes Divya Limon M.D. Work Phone: [facility] Comment on above: 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 (Primary Dx) Start: 05-31-2024 End: 05-31-2024 ambulatory MEENU REED [facility] Start: 05-31-2024 End: 05-31-2024 ambulatory NICHOLE HYDE [facility] Start: 05-27-2024 End: 05-27-2024 ambulatory KVNG HUGO [facility] Start: 05-27-2024 End: 05-27-2024 Office outpatient visit 40 minutes Kvng Hugo MD Work Phone: [facility] Comment on above: 20 weeks gestation o f (Primary Dx); Monochorionic diamniotic twin gestation in second trimester; Echogenic intracardiac focus of fetus on ultrasound Start: 05-27-2024 End: 05-27-2024 ambulatory [facility] Start: 05-13-2024 End: 05-13-2024 Orders Only Elizabeth Wang RN [facility] Comment on above: 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 (Primary Dx) Start: 05-10-2024 End: 05-10-2024 ambulatory DHRUV R JORJE [facility] Start: 05-07-2024 End: 05-07-2024 ambulatory TALYA WOODARD Not Available Start: 04-26-2024 End: 04-26-2024 Orders Only Lara Borrero RN [facility] Comment on above: 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 (Primary Dx); 16 weeks gestation of Start: 04-11-2024 End: 04-11-2024 Chart abstracting Kvng Hugo MD Work Phone: [facility] Start: 04-10-2024 End: 04-10-2024 Telephone encounter Brittanie Chen LPN [facility] Start: 04-09-2024 End: 04-09-2024 Bamboo flowsheet Dhruv [...] [id number] Start: 03-08-2024 End: 03-08-2024 ambulatory DHRUV SANCHEZZIO Not Available Start: 05-08-2022 End: 05-08-[address] KATHLEEN MISC Facility:[facility] Start: 03-13-2022 End: 03-13-2022 ambulatory DOCTOR MISC Facility:[facility] Start: 03-03-2022 End: 03-04-2022 ambulatory Neal Garcia [facility] Start: 03-03-2022 End: 03-03-2022 Patient encounter procedure Edith F [facility] Start: 02-23-2022 End: 02-24-[address] KATHLEEN MISC Facility:[facility] Start: 01-20-2022 End: 01-20-2022 ambulatory DOCTOR MISC Facility:[facility] Start: 12-21-2021 End: 12-21-[address] DOCTOR MISC Facility:[facility] Start: 11-29-2021 End: 11-29-[address] DOCTOR MISC Facility:[facility] Start: 08-21-2021 End: 08-21-[address] DOCTOR MISC Facility:[facility] Start: 06-29-2020 End: 06-29-2020 Emergency department patient visit Edith Ford Work Phone: [facility] Procedures Date Procedure Procedure Detail Performing Clinician Start: 07-16-2024 GLUCOSE 1 HOUR Dhruv Fa zio DO Work Phone: Start: 06-26-2024 Urnls dip stick/tabl et rgnt non-auto w/o micrscp Dhruv Jorje DO Work Phone: Start: 05-07-2024 Microscopic observat ion [Identifier] in Cervix by Cyto stain Kvng Hugo MD Work Phone: Start: 04-09-2024 Urnls dip [...] dip stick/tabl et rgnt non-auto w/o micrscp Dhrvu Jorje DO Work Phone: Appendectomy Edith Bello n History of tympanostomy tubes in ears Pola Ford Tubes in Ears Edith Cho on Plan of Treatment Date Care Activity Detail Author Start: 05-08-2027 Screening for malign ant neoplasm of cervix Pap Smear [facility] Start: 07-17-2025 Adult BMI Screening Adult BMI Screen ing [facility] Start: 07-17-2025 Tobacco Screening Tobacco Screening [facility] Start: 07-17-2025 End: 07-17-2025 US MFM with or without consult US MFM with or without consult Imaging Routine Monochorionic 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 Expected: 07/17/2025 (Approximate), Expires: 07/17/2025 [employer] Work Phone: Comment on above: Expected: 07/17/2025 (Approximate), Expires: 07/17/2025 Start: 06-24-2025 End: 06-24-2025 US MFM with or without consult US MFM with or without consult Imaging Routine Monochorionic diamniotic twin gestation in second trimester Echogenic intracardiac focus of fetus on ultrasound 24 weeks gestation of Expected: 06/24/2025 (Approximate), Expires: 06/24/2025 [employer] Work Phone: Comment on above: Expected: 06/24/2025 (Approximate), Expires: 06/24/2025 Start: 06-21-2025 Adult BMI Screening Adult BMI Screen ing [facility] Start: 06-21-2025 Tobacco Screening Tobacco Screening [facility] Start: 06-12-2025 End: 06-12-2025 US MFM with or without consult US MFM with or without consult Imaging Routine Monochorionic diamniotic twin gestation in second trimester Echogenic intracardiac focus of fetus on ultrasound Expected: 06/12/2025 (Approximate), Expires: 06/12/2025 [employer] Work Phone: Comment on above: Expected: 06/12/2025 (Approximate), Expires: 06/12/2025 Start: 05-27-2025 Tobacco Screening Tobacco Screening [facility] Start: 05-13-2025 End: 05-13-2025 US MFM with or without consult US MFM with or without consult Imaging Routine Monochorionic diamniotic twin gestation in second trimester Expected: 05/13/2025 (Approximate), Expires: 05/13/2025 [employer] Work Phone: Comment on above: Expected: 05/13/2025 (Approximate), Expires: 05/13/2025 Start: 04-26-2025 Adult BMI Screening Adult BMI Screen ing [facility] Start: 04-26-2025 Tobacco Screening Tobacco Screening [facility] Start: 04-26-2025 End: 04-26-2025 US MFM with or without consult US MFM with or without consult Imaging Routine Monochorionic diamniotic twin gestation in second trimester 16 weeks gestation of Expected: 04/26/2025 (Approximate), Expires: 04/26/2025 [employer] Work Phone: Comment on above: Expected: 04/26/2025 (Approximate), Expires: 04/26/2025 Start: 10-28-2024 AMB SEASONAL FLU VACCINE (Season Ended) AMB SEASONAL FLU VACCINE (Season Ended) [facility] Start: 10-28-[address] [facility] Start: 08-15-2024 End: 08-15-2024 Patient encounter procedure 08/15/2024 11:30 AM EDT Appointment [facility] [address] [place] [address] [facility] Start: 07-31-2024 End: 07-31-2024 Patient encounter procedure 07/31/2024 3:30 PM EDT Appointment [facility] [address] [place] [address] [facility] Start: 07-18-2024 End: 07-18-2024 Patient encounter procedure 07/18/2024 1:30 PM EDT Routine [facility] [address] [place] [place] [address] Talya Woodard PA [address] [place] [address] [facility] Start: 07-17-2024 End: 07-17-2024 Patient encounter procedure [facility] Start: 07-05-2024 End: 07-05-2024 Patient encounter procedure [facility] Start: 06-27-2024 End: 06-27-2024 Patient encounter procedure 06/27/2024 1:00 PM EDT Appointment [facility] [address] [place] [address] [facility] Start: 06-26-2024 End: 06-26-2025 CBC panel - Blood by Automated count CBC Lab Routine Diabetes mellitus screening Expected: 06/26/2024 (Approximate), Expires: 06/26/2025 [facility] Work Phone: Comment on above: Expected: 06/26/2024 (Approximate), Expires: 06/26/2025 Start: 06-26-2024 End: 06-26-2025 Measurement of glucose 1 hour after glucose challenge for glucose tolerance test Glucose tolerance, 1 hour Lab Routine Diabetes mellitus screening Expected: 06/26/2024 (Approximate), Expires: 06/26/2025 [facility] Comment on above: Expected: 06/26/2024 (Approximate), Expires: 06/26/2025 Start: 06-26-2024 End: 12-26-2024 US biophysical profile w non stress test US biophysical profile w non stress test Imaging Routine Monochorionic diamniotic twin , antepartum Expected: 06/26/2024 (Approximate), Expires: 12/26/2024 [facility] Comment on above: Expected: 06/26/2024 (Approximate), Expires: 12/26/2024 Start: 06-24-2024 End: 06-24-2024 Patient encounter procedure 06/24/2024 2:30 PM EDT Office Visit Maternal- Medicine at [facility] [address] [place] [address] Americo Reddy MD [address] [facility], [address] [place] [address] Maternal- Medicine at [facility] Start: 06-21-2024 End: 06-21-2024 Patient encounter procedure 06/21/2024 11:30 AM EDT Office Visit Maternal- Medicine at [facility] [address] [place] [address] Kvng Hugo MD [address] [place], [address] [place] [address] Maternal- Medicine at [facility] Start: 06-21-2024 End: 06-21-2024 Patient encounter procedure 06/21/2024 8:45 AM EDT Appointment [facility] [address] [place] [id number] [facility] Start: 06-14-2024 End: 06-14-2024 Patient encounter procedure 06/14/2024 2:15 PM EDT Appointment [facility] [place] [address] [place] [address] [facility] [place] Start: 06-07-2024 End: 06-07-2024 Patient encounter procedure 06/07/2024 9:45 AM EDT Appointment [facility] [place] [address] [place] [address] [facility] [place] Start: 05-27-2024 End: 05-27-2024 Patient encounter procedure 05/27/2024 1:00 PM EDT Appointment [facility] - [facility] [address] [place] [address] [facility] - [facility] Start: 05-10-2024 End: 05-10-2024 Patient encounter procedure 05/10/2024 1:45 PM EDT Appointment [facility] - [facility] [address] [place] [address] [facility] - [facility] Start: 05-07-2024 End: 05-07-2024 Patient encounter procedure 05/07/2024 9:30 AM EDT Office Visit [facility] [address] [place] [address] Talya Woodard PA [address] [address] [facility] Start: 04-26-2024 End: 04-26-2024 Patient encounter procedure 04/26/2024 8:45 AM EST Office Visit Maternal- Medicine at [facility] [address] [place] [address] Kvng Hugo MD [address] [address] Maternal- Medicine at [facility] Start: 04-26-2024 End: 04-26-2024 Patient encounter procedure 04/26/2024 7:30 AM EST Appointment [facility] [address] [place] [address] [facility] Start: 04-09-2024 End: 04-09-2024 Patient encounter procedure 04/09/2024 11:20 AM EST Routine [facility] [address] [place] [phone] Dhruv Recinos, DO [address] [place] [address] Arrived [facility] Comment on above: Arrived Start: 04-08-2024 End: 04-08-2024 Patient encounter procedure 04/08/2024 9:20 AM EST Routine [facility] [address] [place] [address] [place] [phone] Dhruv Recinos, DO [address] [place] [address] [place] [address] [facility] Start: 03-08-2024 End: 03-08-2025 ABO/Rh ABO/Rh Lab Routine Missed menses , unspecified gestational age Expected: 03/08/2024 (Approximate), Expires: 03/08/2025 [facility] Comment on above: Expected: 03/08/2024 (Approximate), [...] trimester Expected: 03/08/2024 (Approximate), Expires: 03/08/2025 [facility] Comment on above: Expected: 03/08/2024 (Approximate), Expires: 03/08/2025 Start: 10-29-2023 COVID-19 Vaccine () COVID-19 Vaccine () [facility] Start: 10-29-2023 Influenza vaccination Influenza Vacc ine [facility] Start: 11-27-2021 DTaP,Tdap and Td Vaccines (7 - Td or Tdap) DTaP,Tdap and Td Vaccines (7 - Td or Tdap) [facility] Start: 10-05-2019 Screening for malign ant neoplasm of cervix Pap Smear [facility] Start: 2017 DTaP,Tdap and Td Vaccines (1 - Tdap) DTaP,Tdap and Td Vaccines (1 - Tdap) [facility] Start: 2017 HEPATITIS B IMMUNIZATION (1 of 3 - 19+ 3-dose series) HEPATITIS B IMMUNIZATION (1 of 3 - 19+ 3-dose series) [facility] Start: 2016 Adult BMI Follow Up Plan Adult BMI Follow Up Plan [facility] Start: 2016 Adult BMI Screening Adult BMI Screen ing [facility] Start: 2013 HPV IMMUNIZATION (1 - 3-dose series) HPV IMMUNIZATION (1 - 3-dose series) [facility] Start: 10-05-2011 VARICELLA IMMUNIZATI ON (1 of 2 - 13+ 2-dose series) VARICELLA IMMUNIZATION (1 of 2 - 13+ 2-dose series) [facility] Start: 2010 Depression Screening Depression Scre ening [facility] Start: 2010 Tobacco Screening Tobacco Screening [facility] Start: 2005 DTAP/Tdap/Td IMMUNIZATION (1 - Tdap) DTAP/Tdap/Td IMMUNIZATION (1 - Tdap) [facility] Start: 10-05-1999 MMR IMMUNIZATION (1 of 1 - Standard series) MMR IMMUNIZATION (1 of 1 - Standard series) [facility] Bacteria identified in Urine by Culture Urine culture Microbiology Routine Missed menses Ordered: 03/08/2024 [facility] Comment on above: Ordered: 03/08/2024 CBC W Auto Different ial panel - Blood CBC and differential Lab Routine Missed menses , unspecified gestational age Ordered: 03/08/2024 [facility] Comment on above: Ordered: 03/08/2024 Hemoglobin A1c/Hemoglobin.total in Blood Hemoglobin A1c Lab Routine Missed menses , unspecified gestational age Ordered: 03/08/2024 [facility] Comment on above: Ordered: 03/08/2024 Hepatitis B virus surface Ag [Presence] in Serum or Plasma by Immunoassay Hepatitis B surface antigen Lab Routine Missed menses , unspecified gestational age Ordered: 03/08/2024 [facility] Comment on above: Ordered: 03/08/2024 Hepatitis C virus Ab [Presence] in Serum or Plasma by Immunoassay Hepatitis C antibody Lab Routine Missed menses , unspecified gestational age Ordered: 03/08/2024 [facility] Comment on above: Ordered: 03/08/2024 HIV-1/HIV-2 antigen/antibody combination immunoassay HIV-1 and HIV-2 antibodies Lab Routine Missed menses , unspecified gestational age Ordered: 03/08/2024 [facility] Comment on above: Ordered: 03/08/2024 Patient Education Muscle Strain (ED) [facility] Patient referral [facility] Reagin Ab [Presence] in Serum by RPR RPR Lab Routine Missed menses , unspecified gestational age Ordered: 03/08/2024 [facility] Comment on above: Ordered: 03/08/2024 Rubella antibody, IgG Rubella an tibody, IgG Lab Routine Missed menses , unspecified gestational age Ordered: 03/08/2024 [facility] Comment on above: Ordered: 03/08/2024 Immunizations Immunization Date Immunization Notes Care Provider Sherron meek 01-30-2012 influenza virus vaccine, unspecified formulation Lara Borrero RN [employer] Payers Date Payer Category Payer [facility] [id number] 2024 Medicaid HMO [id number] 2023 Private Health Insurance [facility] [id number] 1998 Unknown [id number] 2.840.1.439623.3.579.2. 727 1998 Unknown [id number] 2.16840.1.698647.3.579.2. 593 1998 Unknown [id number] 2.16840.1.795366.3.579.2. 593 1998 Unknown [id number] 2.16840.1.500663.3.579.2. 593 1998 Unknown [id number] 2.16840.1.289772.3.579.2. 593 1998 Unknown [id number] 2.16840.1.353447.3.579.2. 593 1998 Unknown [id number] 2.16840.1.008002.3.579.2. 593 1998 Unknown [id number] 2.16.840.1.152614.3.579.2. 593 1998 Unknown [id number] 2.16.840.1.830436.3.579.2. 1281 1998 Unknown [id number] 2.16.840.1.078869.3.579.2. 1281 1998 Unknown [id number] 2.16.840.1.109157.3.579.2. 1281 1998 Unknown [id number] 2.16.840.1.516622.3.579.2. 1281 1998 Unknown [id number] 2.16.840.1.124149.3.579.2. 1281 1998 Unknown [id number] 2.840.1.463331.3.579.2. 1281 1998 Unknown [id number] 2.16840.1.883059.3.579.2. 1286 1998 Unknown [id number] 2.840.1.425720.3.579.2. 128 1998 Unknown [id number] 2.840.1.737568.3.579.2. 1286 1998 Unknown [id number] 2.840.1.193695.3.579.2. 128 1998 Unknown [id number] 2.840.1.753654.3.579.2. 1286 1998 Unknown [id number] 2.16840.1.742542.3.579.2. 1286 1998 Unknown [id number] 2.16840.1.414417.3.579.2. 1286 1998 Unknown [id number] 2.840.1.547453.3.579.2. 128 1998 Unknown [id number] 2.16840.1.108202.3.579.2. 1286 1998 Unknown [id number] 2.16.840.1.295508.3.579.2. 1286 1998 Unknown [id number] 2.16.840.1.052718.3.579.2. 1286 1998 Unknown [id number] 2.16.840.1.449781.3.579.2. 1286 1998 Unknown [id number] 2.16.840.1.126754.3.579.2. 1259 1998 Unknown [id number] 2.16.840.1.476505.3.579.2. 9 1998 Unknown [id number] 2.16.840.1.313427.3.579.2. 9 1998 Unknown [id number] 2.16.840.1.031149.3.579.2. 9 1998 Unknown [id number] 2.16.840.1.355083.3.579.2. 1259 1959 Unknown [id number] 1959 Unknown [id number] Self-pay Self Pay [id number] Social History Date Type Detail Facility Start: 06-29-2020 End: 04-11-2024 Tobacco smoking status KSIS Never smoked tobacco (finding) [facility] Start: 2000 Sex Assigned At Female [facility] Tobacco Household tobacc o concerns: Yes. [facility] Tobacco smoking status No Smoking Status Entered [facility] Start: 03-08-2024 End: 07-17-2024 Sex Assigned At Female [facility] Start: 06-29-2023 End: 04-11-2024 Tobacco use and exposure Smokeless tobacco non-user [facility] Start: 03-08-2024 End: 07-17-2024 Alcoholic beverage intake Lifetime non-drinker (finding) [facility] Start: 03-08-2024 End: 07-17-2024 History of Social function [facility] Start: 01-17-2024 [facility] Start: 1998 Sex assigned at Not on file [facility] Tobacco smoking status NHIS Tobacco smoking consumption unknown [facility] Childcare Unknown [facility] Start: 09-30-2014 End: 05-28-2024 Sex Female (finding) [facility] Start: 05-31-2024 Alcoholic beverage intake Ex-drinker (finding) [facility] NEGATED: Highlighted rowStart: NINF History of tobacco use Passive smoker [facility] Goals Date Patient Goal Desired Activity /State Clinical Notes 06-29-2020 to 07-17-2024 Elizabeth Wang RN - 07/17/2024 2:00 PM Liz Reddy MD - 07/17/2024 2:00 PM EDTAddendum Note - Americo Reddy MD - 07/17/2024 2:00 PM Jean Kowalski LPN - 06/26/2024 3:00 PM EDT Note Date & Type Note Facility 07-17-2024 History of Presen t illness Narrative Headache/epigastric pain/blurry vision/swelling? No Cramping/contractions? No Abnormal vaginal discharge? No Spotting or vaginal bleeding? No Loss or gush of fluid like your water may have broken? No Recent ER visits or hospitalizations? No Any concerns that you would like me to mention to the provider today? No REASON FOR OFFICE VISIT: Suspected growth restriction ruled out. HISTORY OF PRESENT ILLNESS: Juan Diego Fulton is a pleasant 23 y.o. G 1 P0 at 28w0d due on Estimated Date of Delivery: 10/09/24 . has been complicated with Spontaneously conceiving monochorionic diamniotic twin gestation with normal interval growth both twins. No evidence of growth restriction. No evidence of rgtz-yd-[id number] transfusion syndrome. Currently the patient has no complaints. The patient denies nausea, vomiting, abdominal pain, vaginal bleeding, SOB or chest pain. Patient Active Problem List Diagnosis Monochorionic diamniotic twin gestation in second trimester Depression affecting Echogenic intracardiac focus of fetus on ultrasound ALLERGIES: Allergies Allergen Reactions Sumatriptan Shortness Of Breath Theophylline Hives and Rash CURRENT MEDICATIONS: Current Outpatient Medications: acetaminophen (TYLENOL EXTRA STRENGTH) [...] with breakfast. (Patient not taking: Reported on 07/17/2024), Disp: , Rfl: ondansetron ODT (ZOFRAN ODT) 4 mg disintegrating tablet, Dissolve 1 tablet (4 mg total) on tongue every 8 (eight) hours as needed for nausea or vomiting. (Patient not taking: Reported on 07/17/2024), Disp: , Rfl: sertraline (ZOLOFT) 100 mg tablet, Take 1 tablet (100 mg total) by mouth in the morning. (Patient not taking: Reported on 07/17/2024), Disp: , Rfl: Past Medical History: Diagnosis Date BMI 45.0-49.9, adult [place] Irregular periods Oligomenorrhea PCOS (polycystic ovarian syndrome) REVIEW OF SYSTEMS: Head and Neck: Negative for any dizziness and headaches. Cardiovascular and Respiratory System: Denies any chest pain, shortness of breath, and coughing. Abdominal and System: Denies any abdominal pain, nausea, vomiting, vaginal bleeding, and vaginal discharge REVIEW OF ULTRASOUND. Pertinent Ultrasound findings are see report. PHYSICAL EXAMINATION: BP 108/72 Pulse 92 Ht 167.6 cm (5' 5.98 ) Wt (!) 143 kg (315 lb 4.8 oz) LMP 01/03/2024 BMI 50.92 kg/m . Gravid abdomen, Respirations not labored. Normal gait well oriented in time place and person. RECOMMENDATION: 1. Continue serial fmct-xl-lqtc transfusion surveillance at [facility] office. 2. Initiate testing form once a week NST and MELODY starting at 32 weeks gestation until delivery. 3. Patient at the moment is considered low risk and delivery at 37 weeks gestation at her local hospital. 4. Patient understands increased risk of based on twins. Thank you for allowing me to participate in Juan Diego Fulton care. If there are any questions, please do not hesitate to call me. Sincerely, AMERICO REDDY MD documented in this encounter [facility] 07-17-2024 Miscellaneous Notes Addended by: AMERICO REDDY on: 07/25/2024 10:00 AM Modules accepted: Level of Service documented in this encounter [facility] 07-17-2024 Note Addended by: AMERICO PEREIRA on: 07/25/2024 10:00 AM Modules accepted: Level of Service [facility] 06-26-2024 History of Presen t illness Narrative [...] nursing note reviewed. Exam conducted with a skiver heel tap present. Vitals: Estimated body mass index is [...] a day. Pt given glucola with instructions. MFM recommended delivery at 34-37 weeks. Orders Placed This Encounter Procedures CBC Glucose tolerance, 1 hour POCT urinalysis dipstick manually resulted Follow Up: Patient is to return to office in 3 week for routine OB appointment. Documented by Jeannette Kowalski LPN on behalf of: Dhruv Recinos DO documented in this encounter [facility] 06-21-2024 Miscellaneous Notes I called pt and left a message about the u;/s Talya Quiroga scheduled her for documented in this encounter [facility] 06-21-2024 Telephone encounter Note I called pt and left a message about the u;/s Talya Quiroga scheduled her for [facility] 06-21-2024 History of Presen t illness [...] Patient would like to discuss her swelling [facility] Office Note Reason For Office Visit: monochorionic - diamniotic twins HPI: Juan Diego Fulton is a 23 y.o. at 24w2d with Estimated Date of Delivery: 10/09/24 who presented for consultation from Dhruv Recinos DO regarding Chief Complaint Patient presents with Mcminn-Di Twins Baby A EIF I have reviewed [...] % on ultrasound today. No evidence of nbyt-vl-dpul transfusion or TAPS. The patient has a visit at the therapy Center at [facility] as on prior imaging there was a significant discrepancy in the estimated weight. When she was evaluated at [facility] there was no evidence of selective growth restriction and the twins were found to be concordant. Depression - stopped zoloft,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
--- NOTE | 2024-07-30 21:15 | PC.NURSE ---
complains of nausea, dizziness(when she stands up) and right side head(4/10) onset 1day ago. this patient is 30 weeks with twins, due date is but scheduled for 09/18/[address] Campbell
--- NOTE | 2024-07-30 21:28 | ED.GENADUL1 ---
HPI HPI - General Adult General Chief complaint: Nausea/Vomiting/Diarrhea Stated complaint: NAUSEA, HEADACHE 30 WEEKS WITH TWINS Time Seen by Provider: 07/30/24 21:06 Source: patient Mode of arrival: walk-in Limitations: no limitations History of Present Illness HPI narrative: This 23-year-old female G1, P0 who is 30 weeks tomorrow with twins and sees Dr. Recinos presents for evaluation of a bitemporal headache for the past 2 days. The patient states she is also been nauseated and feels dizzy upon standing. She does not have any lower extremity swelling out of the ordinary for her. She can feel her baby moving. She denies any related complaints. She states she did fail her glucose tolerance test and is not sure if she may have gestational diabetes. She was told that she needs to do the 3-hour test. She goes to high [facility] every 2 weeks. She has not had any related complications so far. She denies any thunderclap presentation of the headache. She has no visual changes. She has no neck or back pain. She has not vomited or had any diarrhea. She denies any leakage of fluid, vaginal bleeding or abdominal pain. She has not taken any Tylenol or pain medication today. Related Data Home Medications ?Medication ?Instructions ?Recorded ?Confirmed metformin 500 mg tablet,extended 500 mg PO DAILY 08/28/22 02/23/24 release 24 hr Held on 02/23/24. Instructions: dc sertraline 100 mg tablet 100 mg PO Q24H 08/28/22 02/23/24 Held on 02/23/24. Instructions: dc Previous Rx's ?Medication ?Instructions ?Recorded amoxicillin 875 mg-potassium 1 tab PO Q12H #10 tabs 02/11/24 clavulanate 125 mg tablet Held on 02/23/24. Instructions: dc Allergies Allergy/AdvReac Type Severity Reaction Status Date / Time theophylline Allergy Rash Verified 07/30/24 21:07 Opioid HPI Opioid Management Most Recent Opioid Data: Last Pain Scale 0 Today, 23:03 Last ED Pain Assessment Today, 23:03 Last MAR Pain Assessment Today, 21:59 Urine Cannabinoids, (.) Positive A 03/15/24, 06:45 Ur Phencyclidine Scrn, (NEGATIVE) Negative 03/15/24, 06:45 Review of Systems ROS Status of ROS 10 or more systems reviewed and unremarkable except as noted in history and below [facility] Medical History (Updated 07/30/24 @ 22:30 by Cici Guadalupe MD) PCOS (polycystic ovarian syndrome) ?E28.2 - Polycystic ovarian syndrome (ICD-10) Depression ?F32.A - Depression, unspecified (ICD-10) Social History Smoking status: Never smoker Little interest or pleasure in doing things: not at all Feeling down, depressed, or hopeless: not at all Exam Narrative Exam Narrative: Vital signs and Nursing Notes reviewed: Patient is afebrile, she is mildly tachycardic with a pulse of 108, she has a normal respiratory rate, blood pressure is normal at 115/79, she is not hypoxic with pulse ox of 99% on room air General: Awake, alert, oriented, no acute distress, lying comfortably on the stretcher-no respiratory distress HEENT: Normocephalic atraumatic, mucous membranes are pink and dry, no swelling of the tongue, uvula pharyngeal soft tissues, vision is grossly intact, no photophobia appreciated Neck: Supple, no meningeal signs, no anterior or posterior cervical lymphadenopathy Chest: Lungs are clear to auscultation with good air entry, there is no wheezing rhonchi or rales appreciated no accessory muscle use, patient is speaking in complete sentences-no chest wall tenderness to palpation CVS: Regular rate and rhythm S1-S2, pulse was 90s on exam no murmurs rubs or gallops, pulses are brisk and equal bilaterally ABD: Gravid uterus, nontender, patient can appreciate movement Extremities: Moving all extremities, mild swelling of both feet, no calf swelling or tenderness noted Skin: Normal in appearance without rash,pallor, petechiae or purpura Neuro: No focal deficits Constitutional Vital Signs, click to edit/add: Last Vital Signs Temp 98.0 F 07/30/24 21:07 Pulse 108 H 07/30/24 21:07 Resp 19 07/30/24 21:07 BP 109/76 07/30/24 22:01 Pulse Ox 97 07/30/24 22:20 O2 Del Method Room Air 07/30/24 21:07 Course Vital Signs Vital signs: Vital Signs Pulse Oximetry 99 07/30/24 21:03 Temperature 98.0 F 07/30/24 21:07 Pulse Rate 108 H 07/30/24 21:07 Respiratory Rate 19 07/30/24 21:07 Blood Pressure 109/76 07/30/24 22:01 Pulse Oximetry 97 07/30/24 22:20 Oxygen Delivery Method Room Air 07/30/24 21:07 Medical Decision Making MDM Narrative Medical decision making narrative: This 23-year-old female who is 30 weeks with twins presents for evaluation of a bitemporal headache for the past 2 days associated with nausea and dizziness/lightheadedness. She is not having any abdominal pain vaginal bleeding, leakage of fluids or other related complaints. She states she can feel her baby is moving. She is being followed by maternal- medicine in [place] and sees Dr. Recinos locally. Upon arrival she was noted to be mildly tachycardic. Her blood pressure was normal. There was no concerning symptoms for preeclampsia. Her mucous membranes were dry. Abdomen is gravid and nontender. heart tones were difficult to ascertain by the nursing staff. She was given IV fluids, Tylenol and Zofran. On reevaluation her headache has resolved and her nausea has improved and she is drinking Gatorade. She has a normal white count and hemoglobin. Electrolytes are normal. Liver function tests are normal with a mild elevation in her alk phos. Urine is negative for protein does show 5-10 white blood cells per high-power field for which she was given an oral dose of Keflex. She is feeling better. She was asked if she wanted to go to labor and delivery for monitoring but she states she has an appointment tomorrow and will follow-up at that time. She will be discharged home with a prescription for Keflex with recommendation for close follow-up with her family physician and M providers in [place] Lab Data Labs: Lab Results 07/30/24 07/30/24 Range/Units 21:39 21:50 WBC 11.1 H (4.0-11.0) 10^3/uL RBC 4.17 L (4.20-5.40) 10^6/uL Hgb 10.9 L (12.0-16.0) g/dL Hct 33.6 L (36.0-48.0) % MCV 80.6 L (81.0-99.0) fL MCH 26.1 L (26.7-34.0) pg MCHC 32.4 (29.9-35.2) g/dL RDW 15.3 H (11.0-15.0) % Plt Count 232 (150-450) 10^3/uL MPV 11.3 (9.5-13.5) fL Neut % (Auto) 80.0 H (43.0-75.0) % Lymph % (Auto) 14.1 L (20.5-60.0) % Gibson % (Auto) 4.7 (1.7-12.0) % Eos % (Auto) 0.5 L (0.9-7.0) % Baso % (Auto) 0.3 (0.2-2.0) % Neut # (Auto) 8.9 H (1.4-6.5) 10^3/uL Lymph # (Auto) 1.6 (1.2-3.8) 10^3/uL Gibson # (Auto) 0.5 (0.3-0.8) 10^3/uL Eos # (Auto) 0.1 (0.0-0.7) 10^3/uL Baso # (Auto) 0.0 (0.0-0.1) 10^3/uL Abs Immat Gran (auto) 0.04 H (0.00-0.03) 10^3/uL Imm/Tot Granulo (auto) 0.4 (0.0-0.5) % Sodium 138 (136-145) mmol/L Potassium 3.9 (3.5-5.1) mmol/L Chloride 103 (98-107) mmol/L Carbon Dioxide 21.3 (21.0-32.0) mmol/L Anion Gap 17.6 BUN 4.0 L (7.0-18.0) mg/dL Creatinine 0.44 L (0.55-1.02) mg/dL Est GFR ( Amer) >60 (>=60 mL/min/1.73m^2) Est GFR (Non-Af Amer) >60 (>=60 mL/min/1.73m^2) BUN/Creatinine Ratio 9.1 Glucose 89 (74-106) mg/dL Calcium 8.9 (8.5-10.1) mg/dL Total Bilirubin 0.4 (0.2-1.0) mg/dL AST 12 L (15-37) U/L ALT 13 L (14-59) U/L Alkaline Phosphatase 125 H (46-116) U/L Total Protein 6.8 (6.4-8.2) g/dL Albumin 2.2 L (3.4-5.0) g/dL Globulin 4.6 g/dL Albumin/Globulin Ratio 0.5 Urine Color Lt. yellow (YELLOW) Urine Clarity Clear (CLEAR) Urine pH 6.5 (5.0-9.0) Ur Specific [place] <=1.005 A (1.005-1.025) Urine Protein Negative (NEG/TRACE) mg/dL Urine Glucose (UA) Negative (NEGATIVE) mg/dL Urine Ketones 15 A (NEGATIVE) mg/dL Urine Occult Blood Negative (NEGATIVE) Urine Nitrite Negative (NEGATIVE) Urine Bilirubin Negative (NEGATIVE) Urine Urobilinogen 0.2 (0.2-1.0) EU/dL Ur Leukocyte Esterase Small A (NEGATIVE) Urine RBC 0-2 (0-2) #/HPF Urine WBC 5-10 A (NONE SEEN) #/HPF Ur Squamous Epith Cells Moderate A (NONE/RARE) #/LPF Urine Crystals None seen (None Seen) #/HPF Urine Bacteria Trace A (NONE SEEN) #/HPF Urine Casts None seen (NONE SEEN) #/LPF Urine Mucus None seen (NONE SEEN) Ur Culture Indicated? [place] [place] Discharge Chief Complaint: Nausea/Vomiting/Diarrhea Clinical Impression: Headache, UTI (urinary tract infection) during Patient Disposition: Home, Self-Care Time of Disposition Decision: 23:08 Condition: Good Prescriptions / Home Meds: No Action metformin 500 mg tablet extended release 24 hr 500 mg PO DAILY sertraline 100 mg tablet 100 mg PO Q24H Rx Instructions: at HS amoxicillin-pot clavulanate 875-125 mg tablet 1 tab PO Q12H Qty: 10 0RF Print Language: Welsh Instructions: Acute Headache (ED), Urinary Tract Infection in (ED), at 31 to 34 Weeks (ED) Referrals: TERRELL CARUSO [Primary Care Provider, Family Practice] - 1 week
[2024-07-30 21:57] LABS: Basophils Percent Auto 0.3 % (0.2-2.0); Eosinophils Absolute Auto 0.1 10^3/uL (0.0-0.7); Eosinophils Percent Auto 0.5 % (0.9-7.0); Hematocrit 33.6 % (36.0-48.0); Hemoglobin 10.9 g/dL (12.0-16.0); Immature Granulocytes Abs Auto 0.04 10^3/uL (0.00-0.03); Immature Granulocytes Pct Auto 0.4 % (0.0-0.5); Lymphocytes Absolute Auto 1.6 10^3/uL (1.2-3.8); Lymphocytes Percent Auto 14.1 % (20.5-60.0); Mean Corpuscular HGB Conc 32.4 g/dL (29.9-35.2); Mean Corpuscular Hemoglobin 26.1 pg (26.7-34.0); Mean Corpuscular Volume 80.6 fL (81.0-99.0); Mean Platelet Volume 11.3 fL (9.5-13.5); Monocytes Absolute Auto 0.5 10^3/uL (0.3-0.8); Monocytes Percent Auto 4.7 % (1.7-12.0); Neutrophils Absolute Auto 8.9 10^3/uL (1.4-6.5); Platelet Count 232 10^3/uL (150-450); Red Blood Count 4.17 10^6/uL (4.20-5.40); Red Cell Distribution Width 15.3 % (11.0-15.0); White Blood Count 11.1 10^3/uL (4.0-11.0)
[2024-07-30 21:58] LABS: Bilirubin Urine NEGATIVE (NEGATIVE); Blood Urine NEGATIVE (NEGATIVE); Clarity Urine CLEAR (CLEAR); Color Urine LT. YELLOW (YELLOW); Glucose Urine UA NEGATIVE (NEGATIVE); Ketones Urine 15 mg/dL (NEGATIVE); Leukocyte Esterase Urine SMALL (NEGATIVE); Nitrite Urine NEGATIVE (NEGATIVE); Protein Urine NEGATIVE (NEG/TRACE); Specific Gravity Urine <=1.005 (1.005-1.025); Urobilinogen Urine 0.2 EU/dL (0.2-1.0); pH Urine 6.5 (5.0-9.0)
[2024-07-30] MEDS: ONDANSETRON PF 4 MG/2 ML VIAL IV (21:59)
[2024-07-30] MEDS: ACETAMINOPHEN 325 MG TABLET 650 MG PO (21:59)
[2024-07-30] MEDS: 0.9 % SODIUM CHLORIDE 1,000 ML 1000 ML IV (21:59)
[2024-07-30 22:04] LABS: Bacteria Urine TRACE #/HPF (NONE SEEN); Mucus Urine NONE SEEN (NONE SEEN)
[2024-07-30 22:06] LABS: Cast Seen? NONE SEEN #/LPF (NONE SEEN); Crystals Seen? None Seen #/HPF (None Seen); RBC Urine 0-2 #/HPF (0-2); Squamous Epithelial Cell Urine MODERATE #/LPF (NONE/RARE); Urine Culture Indicated YES-FRMC
[2024-07-30 22:13] LABS: Alanine Aminotransferase 13 U/L (14-59); Albumin Globulin Ratio 0.5; Albumin Level 2.2 g/dL (3.4-5.0); Alkaline Phosphatase 125 U/L (46-116); Anion Gap 17.6; Aspartate Amino Transferase 12 U/L (15-37); BUN Creatinine Ratio 9.1; Bilirubin Total 0.4 mg/dL (0.2-1.0); Calcium 8.9 mg/dL (8.5-10.1); Carbon Dioxide 21.3 mmol/L (21.0-32.0); Chloride 103 mmol/L (98-107); Estimated GFR (African America >60 (>=60 mL/min/1.73m^2); Estimated GFR (Non-African Ame >60 (>=60 mL/min/1.73m^2); Globulin 4.6 g/dL; Glucose 89 mg/dL (74-106); Potassium 3.9 mmol/L (3.5-5.1); Sodium 138 mmol/L (136-145); Total Protein 6.8 g/dL (6.4-8.2)
--- NOTE | 2024-07-30 22:28 | PC.NURSE ---
i was unable to obtain FHT, Dr Guadalupe at bedside and she told patient to go upstairs to OB dept for these FHT after being discharge form the ER dpet
[2024-07-30] MEDS: CEPHALEXIN 500 MG CAPSULE PO (22:31)
--- NOTE | 2024-07-30 23:03 | PC.NURSE ---
this patient vices that headache and nausea is gone, and that she feels better. this patient has about 250 ml left of 09 ns
--- NOTE | 2024-07-30 23:38 | PC.NURSE ---
I gave this patient verbal and written discharge along with 1 Rx and 1 work note and this patient voices yes to understanding these. at time of discharge this patient voices no concerns and shows no signs of distress
== END 2024-07-30 23:37 | disposition home or self-care (01) ==
PROVIDERS: Emergency Provider Emergency Medicine; PCP Family Medicine
DX: O23.43 Unspecified infection of urinary tract in pregnancy, third trimester (principal); N39.0 Urinary tract infection, site not specified; Z3A.30 30 weeks gestation of pregnancy; O30.003 Twin pregnancy, unspecified number of placenta and unspecified number of amniotic sacs, third trimester; O26.893 Other specified pregnancy related conditions, third trimester; R51.9 Headache, unspecified; R42 Dizziness and giddiness
CPT/HCPCS: 36415; 80053; 81001; 85025; 87086; 96361; 96374; 99284; J2405

== ENCOUNTER 2024-08-28 07:03 | Outpatient (OUT) | payer OTHER, SELFPAY ==
--- OUTSIDE RECORDS SUMMARY | 2020-08-25 12:00 | XMS_ITS | Continuity of Care Document ---
Author Organization [facility] Address [address] [place] [address] Phone Care Team Providers Care Curb Setter Name Role Phone Woodrow LANEJessica Unavailable Unavailable [...] Films Nutrit Couns For Control Of [place] Dis Mar Oral Hygiene Instruction Prophylaxis Adult Topical Jorge Of Flouride Varnish 018 Oral Hygiene Instruction Moderate Risk Intraoral-complete Series (bw) 18 Comp Oral Eval New/estab Patient 2017 Oral Hygiene Instruction Advance Directives Directive Yes / No Effective Date File Name No Information Encounters Encounter Description Practice Location Reason(s) For Visit Diagnoses Date Provider Providers Copied on Encounter [facility], [address] [facility], [place], [place], [id number] , [place] tel:[phone] Dental Clinic prophy (chief complaint) Encounter for screening for dental disorders 1 Woodrow DMD Jessica. [address] [place], [place], [id number], [place]. tel:[phone] [facility], [address] [place], [place], [id number] , [place] tel: [phone] Dental Clinic filling (chief complaint) Encounter for screening for dental disorders 9 [facility]. [address] [place], [place], [id number], [place]. tel:[phone] [facility], [address] [place] [address], [id number] , [place] tel: [phone] Dental Clinic Prophy (chief complaint) Encounter for screening for dental disorders 9 [facility]. [address] [place] [address], [id number], [place]. tel:[phone] [facility], [address] [place] [address], [id number] , [place] tel: [phone] Dental Clinic Encounter for screening for dental disorders 8 Eitan DMD Mehul. [address] [place], [address], [place]. tel:[phone] [facility], [address] [place] [address], [id number] , [place] tel: [phone] Dental Clinic dental new (chief complaint) Encounter for screening for dental disorders 8 Ama DMD Deepasulochana. [address] [place], [address], [place]. tel:[phone] Family History Family Member Type Diagnosis Age At Onset Father Problem (finding) Alive and well Mother Problem (finding) Alive and well Payers Payer name Insurance type Covered republican ID Blane hess(s) D Medicaid [facility] [id number] Social History Type Description Quantity Date Captured [...]
--- OUTSIDE RECORDS SUMMARY | 2023-07-17 05:40 | XMS_ITS ---
Author Organization [facility] Address [address] [place] [address] Care Team Providers Care Freight Elevator Erector Name Role Phone Siddharth Weinstein Primary Care Provider [phone] REASON FOR VISIT NEW PATIENT DENTAL EXAM Encounters Encounter Location Date Provider Diagnosis [address] [place] [address] 07/17/2023 Siddharth Weinstein Plan Of Treatment No Information Progress Notes * JUAN DIEGO ROMERODOB: 9 (23 yo F)Acc No.[id number]:07/17/2023 Patient: Paola JUAN DIEGO LE Provider: Gage Weinstein DDS :2000 A ge:22 Y S ex:Female Date:07/17/2023 Address:[address] [place], [place] [id number] Subjective: * Chief Complaints: * 1 . NEW PATIENT DENTAL EXAM. * Medical History: Objective: * Vitals: Assessment: Plan: * Treatment: * Images: * Electronic signature of Chris Weinstein DDS on 08/28/2024 at 07:04 AM EDT Sign off status: Pending * Provider: Gage Weinstein DDS Date: 07/17/2023 Generated for Roma taylor/Ashwin/eTrannoamiitting on: 08/28/2024 07:04 AM EDT
--- OUTSIDE RECORDS SUMMARY | 2024-03-07 06:40 | XMS_ITS ---
Author Organization [facility] Address [address] [place] [address] Care Team Providers Care Drywall Worker Name Role Phone Siddharth Weinstein Primary Care Provider REASON FOR VISIT NEW PT EXAM (EXTREMEM TOOTH PAIN) Encounters Encounter Location Date Provider Diagnosis [address] [place] [address] 03/07/2024 Siddharth Weinstein Plan Of Treatment No Information Progress Notes * JUAN DIEGO ROMERODOB: 9 (23 yo F)Acc No.[id number]:03/07/2024 Patient: Paola JUAN DIEGO LE Provider: Gage Weinstein DDS :2000 A ge:23 Y S ex:Female Date:03/07/2024 Address:[address] [place], [place] [id number] Subjective: * Chief Complaints: * 1 . NEW PT EXAM (EXTREMEM TOOTH PAIN). * Medical History: Objective: * Vitals: Assessment: Plan: * Treatment: * Images: * Electronic signature of Chris Weinsetin DDS on 08/28/2024 at 07:05 AM EDT Sign off status: Pending * Provider: Gage Weinstein DDS Date: 03/07/2024 Generated for Roma taylor/Ashwin/eTransmitting on: 0 08/28/2024 07:05 AM EDT
--- OUTSIDE RECORDS SUMMARY | 2024-08-15 11:30 | XMS_ITS | Encounter Summary ---
Author Organization [facility] tem Address [id number] [address] [place] [address] Care Team Providers Care Financial Services Auditor Name Role Phone Unavailable Primary Care Provider Unavailabl e Reason for Referral * Diagnostic Imaging (Routine) - Pending Review Specialty Diagnoses / Procedures Referred By Contac Referred To Contact Maternal and Medicine Diagnoses Monochorionic 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 Procedures US [facility] with or without consult Aiden Reddy MD [address] [place] [address] Phone: tel: fax: Maternal- Medicine at [facility] [address] [place] [address] Phone: tel: fax: Referral ID Status Reason Start Date Expiration Date V isits Requested Visits Authorized [id number] Pending Review 07/17/2024 07/17/2025 1 1 Reason for Visit * Diagnostic Imaging (Routine) - Pending Review Specialty Diagnoses / Procedures Referred By [facility] Referred To Contact Maternal and Medicine Diagnoses Monochorionic 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 Procedures US [facility] with or without consult Aiden Reddy MD [address], [address] [place] [address] Phone: tel: fax: Maternal- Medicine at [facility] [address] [place] [address] Phone: tel: fax: Referral ID Status Reason Start Date Expiration Date V isits Requested Visits Authorized [id number] Pending Review 07/17/2024 07/17/2025 1 1 Encounter Details Date Type Department Care Team (Latest Contact Info) Description 08/15/2024 11:30 AM EDT - 08/15/2024 11:59 PM EDT Hospital Encounter [facility] US Imaging [address] [place] [address] Monochorionic diamniotic twin gestation in [...] Info) Description 08/29/2024 3:30 PM EDT Appointment [facility] US Imaging [address] [place] [address] 09/11/2024 1:30 PM EDT Appointment [facility] - [facility] US Imaging [address] [place] [address] documented as of this encounter Procedures Procedure Name Priority Date/Time Associated Diagnosis Comments US [facility] OB FOLLOW-UP, 1 FETUS Routine 08/15/2024 12:55 PM EDT Monochorionic 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 documented in this encounter Results * US [facility] OB FOLLOW-UP, 1 FETUS (08/15/2024 12:55 PM EDT) Anatomical Region Laterality Modality OB-INSPECTOR Ultrasound 08/15/2024 12:0 6 PM EDT Narrative 08/15/2024 12:57 PM EDT NAME: HEATHER ADAMSON : 2000 SEX: F Accession Number: [id number] ORDERING PHYSICIAN: AIDEN REDDY REFERRING PHYSICIAN: DEMETRIUS BRYSON Coding ----- --------- Procedures [id number]: Follow-up Ultrasound, per fetus. 2 Indication ----- --------- Obesity in , [place]-Di twin , Supervision of high risk - A - EIF. History ----- --------- OB History 1. Para 0 [id number] Current ----- --------- Cell free DNA LOW [...] EFW (oz) 5 oz EFW by: Hadlock ([id number]) Extended Tibia 52.1 mm 30w 6d 24% Umberto Program Evaluation Consultant 3.2 mm CM 4.0 mm <1% Nicolaides [...] EFW (oz) 11 oz EFW by: Blakelock ([id number]) Extended Tibia 53.7 mm 31w 5d 44% Umberto Program Evaluation Consultant 3.9 mm CM 5.6 mm 10% Nicolaides [...] primary OB provider unless otherwise specified by [facility]. Results forwarded to ordering provider so they can follow up with the patient as necessary. Procedure Note Aiden Reddy MD - 08/15/2024 NAME: HEATHER ADAMSON : 2000 SEX: F Accession Number: [id number] ORDERING PHYSICIAN: AIDEN REDDY REFERRING PHYSICIAN: DEMETRIUS BRYSON Coding ----- --------- Procedures [id number]: Follow-up Ultrasound, per fetus. 2 Indication ----- --------- Obesity in , [place]-Di twin , Supervision of high riskpregnancy - A - EIF. History ----- --------- OB History 1. Para 0 [id number] Current ----- --------- Cell free DNA LOW [...] EFW (oz) 5 oz EFW by: Hadlock ([id number]) Extended Tibia 52.1 mm 30w 6d 24% Umberto Program Evaluation Consultant 3.2 mm CM 4.0 mm <1% Nicolaides [...] EFW (oz) 11 oz EFW by: Hadlock ([id number]) Extended Tibia 53.7 mm 31w 5d 44% Umberto Program Evaluation Consultant 3.9 mm CM 5.6 mm 10% Nicolaides [...] thepatient as necessary. Aiden Reddy MD [facility] ORDERABLES Final Resul t documented in this encounter Visit Diagnoses Diagnosis Monochorionic 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 documented in this encounter
--- OUTSIDE RECORDS SUMMARY | 2024-08-21 13:00 | XMS_ITS | Encounter Summary ---
Author Organization [facility] Address [address] [place] [address] Care Team Providers Care Curb Worker Name Role Phone Edith Ford MD Primary Care Provider +1- [phone] Reason for Visit * Reason Comments Routine Visit Encounter Details Date Type Department Care Team ([facility] Contact Info) Description 08/21/2024 1:00 PM EDT Routine [facility] [address] [place] [address] Talya Reyna PA [address] [place] [address] 33 weeks gestation of ([facility]); Third trimester ([facility]); Monochorionic diamniotic twin , antepartum ([facility]); Nonintractable headache, unspecified chronicity pattern, unspecified headache type; Other iron deficiency anemia Social History Tobacco Use Types Packs/Day Years Used Date Smoking Tobacco: Never Passive Smoke Exposure: Never Smokeless Tobacco: Never Alcohol Use Standard Drinks/Week Comments Never 0 (1 standard drink = 0.6 oz pur e alcohol) Estimated Date of Delivery Comme nts Yes 10/09/2024 Based on last me nstrual period of 01/03/2024 Sex and Gender Information Value Date Recorded Sex Assigned at Not on file Legal Sex Female 8:06 PM EDT Gender Identity Not on file Sexual Orientation Not on file documented as of this encounter Last Filed Vital Signs Vital Sign Reading Time Taken Comments Blood Pressure 120/72 08/21/2024 1:30 PM EDT Pulse - - Temperature - - Respiratory Rate - - Oxygen Saturation - - Inhaled Oxygen Concentration - - Weight 145 kg (320 lb 6.4 oz) 08/21/2024 1:30 PM EDT Height - - Body Mass Index 51.71 06/02/2022 12:00 PM EDT documented in this encounter Progress Notes * Jeannette Kowalski, PLUMBING MECHANIC - 08/21/2024 1:00 PM EDT Reason for Appointment: Patient ID: Rosemary Fulton is a 23 y.o. female who presents for Routine Visit Patient presents today for Return OB appointment. MEDICATIONS Current Outpatient Medications Medication Instructions aspirin 81 mg, Once folic acid (FOLVITE) 1 mg, Daily RT iron polysaccharides (PROFE) 391.3 mg, Oral, Daily magnesium oxide (MAG-OX) 400 mg, Oral, Daily Vit-Fe Fumarate-FA ( Vitamins) 28-0.8 MG tablet [...] nursing note reviewed. Exam conducted with a drill doctor present. Vitals: Estimated body mass index is 51.71 kg/m?? as calculated from the following: Height as of 06/02/22: 5' 6 . Weight as of this encounter: 320 lb 6.4 oz. BP: 120/72 Patient's last menstrual period was 01/03/2024. ASSESSMENT & PLAN ICD-10-CM 1. 33 weeks gestation of ([facility]) Z3A.33 POCT urinalysis dipstick manually resulted 2. Third trimester ([facility]) Z34.93 POCT urinalysis dipstick manually resulted 3. Monochorionic diamniotic twin , antepartum ([facility]) O30.039 POCT urinalysis dipstick manually resulted 4. Nonintractable headache, unspecified chronicity pattern, unspecified headache type R51.9 5. Other iron deficiency anemia D50.8 iron polysaccharides (ProFe) 391.3 (180 Fe) MG capsule Return OB: Patient presents today for a routine obstetrics appointment. Patient is currently 33w0d . Patient states she is doing well but has complaints of being tired due to current . Patient has verbalizes frequent movement. labor precautions was discussed/given and patient was instructed to perform kick counts three times a day. Orders Placed This Encounter Procedures POCT urinalysis dipstick manually resulted Follow Up: Patient had Pro Fe sent to her pharmacy. She is to begin NST/ BPP and states that she will call to schedule. We will also send in her Celestone to the Infusion clinic today and she is to have this at34 weeks. Patient is to return to office in 1 week for routine OB appointment. Documented by Jeannette Kowalski LPN on behalf of: Tracie Kaufman NP documented in this encounter Plan of Treatment Upcoming Encounters Date Type Department Care Team (Late st Contact Info) Description 08/28/2024 1:00 PM EDT Routine [facility] [address] [place] [address] Dhruv Recinos, DO [address] [place] [address] [place] [address] documented as of this encounter Procedures Procedure Name Priority Date/Time Associated Diagnosis Comments POCT URINALYSIS DIPSTICK Routine 08/21/2024 1:39 PM EDT 33 weeks gestation of ([facility]) Third trimester ([facility]) Monochorionic diamniotic twin , antepartum ([facility]) documented in this encounter Results * (ABNORMAL) POCT urinalysis dipstick manually resulted (08/21/2024 1:39 PM EDT) Color, UA Yellow Clarity, UA Clear Glucose, UA Negative Negative - 2000(110) ++++ mg/dL Bilirubin, UA Negative Negative - 4(70) +++ mg/dL Ketones, UA Positive Negative - 160(16) ++++ mg/dL Spec Grav, UA 1.020 1 - 1.03 Blood, UA Negative Negative - 50 Duane/mcL pH, UA 7.0 5 - 9 Protein, UA Negative Negative - 2000(20) ++++ mg/dL Urobilinogen, UA 0.2 0.2 - 12 mg/dL Leukocytes, UA Moderate Negative - 500+++ Belinda/mcL Nitrite, UA Negative Negative - Positive Urine 08/21/2024 1:39 PM EDT Talya OJEDA POINT OF CARE TEST ENTER/EDIT OR DERABLES Final Result documented in this encounter Visit Diagnoses Diagnosis 33 weeks gestation of ([facility]) Third trimester ([facility]) state, incidental Monochorionic diamniotic twin , antepartum ([facility]) Nonintractable headache, unspecified chronicity pattern, unspecified headache type Other iron deficiency anemia documented in this encounter Care Teams Curb Worker Relationship Specialty Start Date End Date Edith Ford MD [address] [place] [address] PCP - General Family Medicine 09/01/22 documented as of this encounter
--- OUTSIDE RECORDS SUMMARY | 2024-08-28 07:04 | XMS_ITS | Encounter Summary ---
Author Organization [facility] Address [address] [place] [address] Care Team Providers Care Utilities Service Investigator Name Role Phone Edith Ford MD Primary Care Provider +1- [phone] Encounter Details Date Type Department Care Team ([facility] [address] Contact Info) Description 02/23/2024 Abstract [facility] [address] [place] [address] [place] [id number] Social History Tobacco Use Types Packs/Day Years Used Date Smoking Tobacco: Never Passive Smoke Exposure: Never Smokeless Tobacco: Never Alcohol Use Standard Drinks/Week Comments Never 0 (1 standard drink = 0.6 oz pur e alcohol) Comments Unknown Sex and Gender Information Value Date Recorded Sex Assigned at Not on file Legal Sex Female 8:06 PM EDT Gender Identity Not on file Sexual Orientation Not on file documented as of this encounter Plan of Treatment Upcoming Encounters Date Type Department Care Team ([facility] [address] Contact Info) Description 08/28/2024 1:00 PM EDT Routine [facility] [address] [place] [address] [place], [place] [id number] documented as of this encounter Visit Diagnoses Not on filedocumented in this encounter Care Teams Utilities Service Investigator Relationship Specialty Start Date End Date Edith Ford MD [address] [place] [address] PCP - General Family Medicine 09/01/22 documented as of this encounter
--- OUTSIDE RECORDS SUMMARY | 2024-08-28 07:04 | XMS_ITS | Encounter Summary ---
Author Organization [facility] Address [address] [place] [address] Care Team Providers Care Veterans Service Representative Name Role Phone Edith Ford MD Primary Care Provider +1- [phone] Encounter Details Date Type Department Care Team (Late Contact Info) Description 03/18/2024 Abstract [facility] [address] [facility] [place] [address] [place] [address] [address] [place], [facility]11 Social History Tobacco Use Types Packs/Day Years [...] Encounters Date Type Department Care Team (Late Contact Info) Description 08/28/2024 1:00 PM EDT Routine [facility] [address] [place] [address] Dhruv Recinos, [facility] [address] [place], [place] [id number] documented as of this encounter Visit Diagnoses Not on filedocumented in this encounter Care Teams Veterans Service Representative Relationship Specialty Start Date End Date Edith Ford MD [address] [place] [address] PCP - General Family Medicine 09/01/22 documented as of this encounter
--- OUTSIDE RECORDS SUMMARY | 2024-08-28 07:04 | XMS_ITS | Encounter Summary ---
Author Organization [facility] Address [address] [place] [address] Care Team Providers Care Clerk Secretary Name Role Phone Edith Ford MD Primary Care Provider +1- [phone] Encounter Details Date Type Department Care Team (Late Contact Info) Description 03/08/2024 Abstract [facility] [address] [place] [address] [place] [address] [address] [place], [facility]11 Social History Tobacco Use Types Packs/Day [...] Description 08/28/2024 1:00 PM EDT Routine [facility] [address] [place] [address] Dhruv Recinos, [facility] Hair [place], [place] [id number] documented as of this encounter Visit Diagnoses Not on filedocumented in this encounter Care Teams Clerk Secretary Relationship Specialty Start Date End Date Edith Ford MD [address] [place] [address] PCP - General Family Medicine 09/01/22 documented as of this encounter
--- OUTSIDE RECORDS SUMMARY | 2024-08-28 07:04 | XMS_ITS | Encounter Summary ---
Author Organization [facility] Address [address] [place] [address] Care Team Providers Care Lost Charge Card Clerk Name Role Phone Edith Ford MD Primary Care Provider +1- [phone] Encounter Details Date Type Department Care Team ([facility] Contact Info) Description 09/01/2022 Abstract [facility] OB [address] [place] [address] [address] [place], [id number] Talya Reyna PA [address] [place] [address] Dr [place], [facility]11 Social History Tobacco Use Types Packs/Day Years Used Date Smoking Tobacco: Never Tobacco Cessation:Counseling Given: Not Answered Alcohol Use Standard Drinks/Week Comments Never 0 (1 standard drink = 0.6 oz pur e alcohol) Comments Unknown Sex and Gender Information Value Date Recorded Sex Assigned at Not on file Legal Sex Female 8:06 PM EDT Gender Identity Not on file Sexual Orientation Not on file documented as of this encounter Plan of Treatment Upcoming Encounters Date Type Department Care Team ([facility] Contact Info) Description 08/28/2024 1:00 PM EDT Routine [facility] OB [address] [place] [address] [place] [address] Rec[address] [place] [id number] documented as of this encounter Visit Diagnoses Not on filedocumented in this encounter Care Teams Lost Charge Card Clerk Relationship Specialty Start Date End Date Edith Ford MD [address] [place] [address] PCP - General Family Medicine 09/01/22 documented as of this encounter
--- OUTSIDE RECORDS SUMMARY | 2024-08-28 07:04 | XMS_ITS | Encounter Summary ---
Author Organization [facility] Address [address] [place] [address] Care Team Providers Care Burlap Roll Coverer Name Role Phone Edith Ford MD Primary Care Provider +1- [phone] Encounter Details Date Type Department Care Team (Late Contact Info) Description 03/15/2024 Abstract [facility] [address] [facility] [place] [address] [place] [address] [address] [place], [facility] Social History Tobacco Use Types Packs/Day Years [...] Description 08/28/2024 1:00 PM EDT Routine [facility] [address] [place] [address] Dhruv Recinos, [facility] Hair [place], [place] [id number] documented as of this encounter Visit Diagnoses Not on filedocumented in this encounter Care Teams Burlap Roll Coverer Relationship Specialty Start Date End Date Edith Ford MD [address] [place] [address] PCP - General Family Medicine 09/01/22 documented as of this encounter
--- OUTSIDE RECORDS SUMMARY | 2024-08-28 07:05 | XMS_ITS | Encounter Summary ---
Author Organization [facility] Address [address] [place] [address] Care Team Providers Care Meat Counter Clerk Name Role Phone Edith Ford MD Primary Care Provider +1- [phone] Encounter Details Date Type Department Care Team (Late Contact Info) Description 08/16/2024 Abstract [facility] [address] [facility] [place] [address] [place] [address] [address] [place], [facility]11 Social History Tobacco Use Types Packs/Day [...] Description 08/28/2024 1:00 PM EDT Routine [facility] [address] [place] [address] Dhruv Recinos, [facility] Hair [place], [place] [id number] documented as of this encounter Visit Diagnoses Not on filedocumented in this encounter Care Teams Meat Counter Clerk Relationship Specialty Start Date End Date Edith Ford MD [address] [place] [address] PCP - General Family Medicine 09/01/22 documented as of this encounter
--- OUTSIDE RECORDS SUMMARY | 2024-08-28 07:05 | XMS_ITS | Encounter Summary ---
Author Organization [facility] Address [address] [place] [address] Care Team Providers Care Hedis Specialist Name Role Phone Edith Ford MD Primary Care Provider +1- [phone] Encounter Details Date Type Department Care Team (Late Contact Info) Description 08/21/2024 Bamboo flowsheet [facility] [address] [facility] [facility] [address] Talya Reyna PA [address] [facility] [address] [place], [place] [address] Social History Tobacco Use Types Packs/Day Years [...] PM EDT Routine [facility] [address] [facility] [place] [address] Dhruv Recinos DO [address] [facility] [address] Art [place], [facility]11 documented as of this encounter Visit Diagnoses Not on filedocumented in this encounter Care Teams Hedis Specialist Relationship Specialty Start Date End Date Edith Ford MD [address] [place] [address] PCP - General Family Medicine 09/01/22 documented as of this encounter
--- OUTSIDE RECORDS SUMMARY | 2024-08-28 07:05 | XMS_ITS | Encounter Summary ---
Author Organization [facility] Address [address] [place] [address] Care Team Providers Care Assembler Radio And Electrical Name Role Phone Edith Ford MD Primary Care Provider +1- [phone] Encounter Details Date Type Department Care Team (Late Contact Info) Description 05/15/2024 Orders Only [facility] [address] [place] [address] Valeri Fischer [place] [address] [place] [address] Social History Tobacco Use Types Packs/Day Years [...] Description 08/28/2024 1:00 PM EDT Routine [facility] [address] [facility] [place] [address] Dhruv Recinos DO [address] [place], [place] [address] [place], [place] [id number] documented as of this encounter Procedures Procedure Name Priority Date/Time Associated Diagnosis Comments PAP SMEAR Routine 05/07/2024 12:00 AM EDT documented in this encounter Results * Pap Smear (05/07/2024 12:00 AM EDT) Swab Cervical swab / Unknown us Talya OJEDA LAB CYTOLOGY ORDERABLES Final Re sult [facility]NAL LAB documented in this encounter Visit Diagnoses Not on filedocumented in this encounter Care Teams Assembler Radio And Electrical Relationship Specialty Start Date End Date Edith Ford MD [address] [place] [address] PCP - General Family Medicine 09/01/22 documented as of this encounter
--- OUTSIDE RECORDS SUMMARY | 2024-08-28 07:05 | XMS_ITS | Encounter Summary ---
Author Organization [facility] Address [address] [place] [address] Care Team Providers Care Seam Sewer Name Role Phone Edith Ford MD Primary Care Provider +1- [phone] Encounter Details Date Type Department Care Team (Late Contact Info) Description 08/26/2024 Abstract [facility] [address] [facility] [place] [address] [place] [address] [address], [facility]11 Social History Tobacco Use Types Packs/Day [...] Description 08/28/2024 1:00 PM EDT Routine [facility] [address] [place] [address] Dhruv Recinos, [facility] Hair [place], [place] [id number] documented as of this encounter Visit Diagnoses Not on filedocumented in this encounter Care Teams Seam Sewer Relationship Specialty Start Date End Date Edith Ford MD [address] [place] [address] PCP - General Family Medicine 09/01/22 documented as of this encounter
--- OUTSIDE RECORDS SUMMARY | 2024-08-28 07:05 | XMS_ITS | Encounter Summary ---
Author Organization [facility] Address [address] [place] [address] Care Team Providers Care Fabric Worker Fitter Name Role Phone Edith Ford MD Primary Care Provider +1- [phone] Encounter Details Date Type Department Care Team (Late Contact Info) Description 06/17/2024 Abstract [facility] [address] [facility] [address] [place] [address] [address] [place], [facility]11 Social History Tobacco Use Types Packs/Day [...] Description 08/28/2024 1:00 PM EDT Routine [facility] [address] [place] [address] Dhruv Recinos, [facility] Hair [place], [place] [id number] documented as of this encounter Visit Diagnoses Not on filedocumented in this encounter Care Teams Fabric Worker Fitter Relationship Specialty Start Date End Date Edith Ford MD [address] [place] [address] PCP - General Family Medicine 09/01/22 documented as of this encounter
--- OUTSIDE RECORDS SUMMARY | 2024-08-28 07:05 | XMS_ITS | Encounter Summary ---
Author Organization [facility] Address [address] [place] [address] Care Team Providers Care Exchange Engineer Name Role Phone Edith Ford MD Primary Care Provider +1- [phone] Encounter Details Date Type Department Care Team (Late Contact Info) Description 03/28/2024 Abstract [facility] [address] [facility] [place] [place] [address] [place] [address] Hair J[place], [facility]11 Social History Tobacco Use Types Packs/Day Years [...] Description 08/28/2024 1:00 PM EDT Routine [facility] [address] [place] [address] Dhruv Recinos, [facility] Hair [place], [place] [id number] documented as of this encounter Visit Diagnoses Not on filedocumented in this encounter Care Teams Exchange Engineer Relationship Specialty Start Date End Date Edith Ford MD [address] [place] [address] PCP - General Family Medicine 09/01/22 documented as of this encounter
--- OUTSIDE RECORDS SUMMARY | 2024-08-28 07:05 | XMS_ITS | Encounter Summary ---
Author Organization [facility] tem Address [id number] [address] [place] [address] Care Team Providers Care Route Driver Coin Machines Name Role Phone Unavailable Primary Care Provider Unavailabl e Reason for Referral * Diagnostic Imaging (Routine) - Pending Review Specialty Diagnoses / Procedures Referred By Contac t Referred To Contact Maternal and Medicine Diagnoses Monochorionic 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 Procedures US MFM with or without consult Aiden Meza MD [address], [address] [place] [address] Phone: tel: fax: Maternal- Medicine at [place] [address] [place] [address] Phone: tel: fax: Referral ID Status Reason Start Date Expiration Date V isits Requested Visits Authorized [id number] Pending Review 08/16/2024 08/16/2025 1 1 * Diagnostic Imaging (Routine) - Pending Review Specialty Diagnoses / Procedures Referred By Contac t Referred To Contact Maternal and Medicine Diagnoses Monochorionic 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 Procedures US MFM with or without consult Aiden Meza MD [address], [address] [place] [address] Phone: tel: fax: Maternal- Medicine at [place] [phone] [facility] [place] [address] Phone: tel: fax: Referral ID Status Reason Start Date Expiration Date V isits Requested Visits Authorized [id number] Pending Review 08/16/2024 08/16/2025 1 1 Encounter Details Date Type Department Care Team (Late st Contact Info) Description 08/16/2024 Orders Only Maternal- Medicine at [facility] [address] [facility] [place] [phone] Elizabeth Wang RN Monochorionic 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 (Primary Dx) Social History Tobacco Use Types Packs/Day Years [...] Info) Description 08/29/2024 3:30 PM EDT Appointment [facility] US Imaging [address] [place] [address] 09/11/2024 1:30 PM EDT Appointment [facility] US Imaging [address] [place] [address] Scheduled Orders Name Type Priority Associated Diagnoses Orde r Schedule US MFM with or without consult Imaging Routine Monochorionic 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 Expected: 08/16/2025 (Approximate), Expires: 08/16/2025 US MFM with or without consult Imaging Routine Monochorionic 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 Expected: 08/16/2025 (Approximate), Expires: 08/16/2025 documented as of this encounter Visit Diagnoses Diagnosis Monochorionic 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- Primary documented in this encounter
--- OUTSIDE RECORDS SUMMARY | 2024-08-28 07:05 | XMS_ITS | Encounter Summary ---
Author Organization [facility] Address [address] [place] [address] Care Team Providers Care Attending Radiologist Name Role Phone Edith Ford MD Primary Care Provider +1- [phone] Encounter Details Date Type Department Care Team (Late Contact Info) Description 05/28/2024 Abstract [facility] [address] [place] [address] [place] [address] [address], [place] [address] Social History Tobacco Use Types Packs/Day Years [...] Description 08/28/2024 1:00 PM EDT Routine [facility] [address] [place] [address] Dhruv Recinos, [facility] [address] [place], [place] [id number] documented as of this encounter Visit Diagnoses Not on filedocumented in this encounter Care Teams Attending Radiologist Relationship Specialty Start Date End Date Edith Ford MD [address] [place] [address] PCP - General Family Medicine 09/01/22 documented as of this encounter
--- OUTSIDE RECORDS SUMMARY | 2024-08-28 07:05 | XMS_ITS | Encounter Summary ---
Author Organization [facility] Address [address] [place] [address] Care Team Providers Care Cnc Mill Set Up Operator Name Role Phone Edith Ford MD Primary Care Provider +1- [phone] Encounter Details Date Type Department Care Team (Late st Contact Info) Description 04/26/2024 External Result Encounter [facility] OB [address] [place] [address] Demetrius Recinos, DO [address] [facility] [address] [place], [id number] Social History Tobacco Use Types Packs/Day Years [...] on file documented as of this encounter Miscellaneous Notes * Result Encounter Note - Kim Estes LPN - 04/26/2024 1:22 PM EST Pt notified and treated documented in this encounter Plan of Treatment Upcoming Encounters Date Type Department Care Team (Late Contact Info) Description 08/28/2024 1:00 PM EDT Routine [facility] [address] [facility] [place] [address] Demetrius Recinos, DO [address] [facility] [place] [address] documented as of this encounter Procedures Procedure Name Priority Date/Time Associated Diagnosis Comments RECURRENT VAGINITIS (HTRX) Routine 05/07/2024 10:57 AM EDT US OB 14+ WEEKS ANATOMY SCAN 04/26/2024 1:20 PM EST documented in this encounter Results * (ABNORMAL) RECURRENT VAGINITIS (HTRX) (05/07/2024 10:57 AM EDT) Pathologist [facility] ATOPOBIUM VAGINAE 17.085(A) 19.961 - 24.689 ppm 05/08/2024 7:28 AM EDT [facility] ATOPOBIUM VAGINAE Detected(A) 19.961 - 24.689 ppm 05/08/2024 7:28 AM EDT [facility] BVAB 2,3 (BACTERIAL VAGINOSIS ASSOCIATED BACTERIA 2, 3); MOBILUNCUS SPP 12.518(A) 19.961 - 24.689 ppm 05/08/2024 7:28 AM EDT [facility] BVAB 2,3 (BACTERIAL VAGINOSIS ASSOCIATED BACTERIA 2, 3); MOBILUNCUS SPP Detected(A) 19.961 - 24.689 ppm 05/08/2024 7:28 AM EDT [facility] ALYSON ALBICANS, PARAPSILOSIS, TROPICALIS 27.203(A) 19.961 - 30.770 ppm 05/08/2024 7:28 AM EDT [facility] ALYSON ALBICANS, PARAPSILOSIS, TROPICALIS Detected(A) 19.961 - 30.770 ppm 05/08/2024 7:28 AM EDT [facility] ALYSON GLABRATA 0.000 23.000 - 32.138 ppm 05/08/2024 7:28 AM EDT [facility] ALYSON GLABRATA Not Detected 23.000 - 32.138 ppm 05/08/2024 7:28 AM EDT [facility] ALYSON KRUSEI 0.000 23.000 - 32.271 ppm 05/08/2024 7:28 AM EDT [facility] ALYSON KRUSEI Not Detected 23.000 - 32.271 ppm 05/08/2024 7:28 AM EDT [facility] CHLAMYDIA TRACHOMATIS 0.000 23.000 - 31.467 ppm 05/08/2024 7:28 AM EDT [facility] CHLAMYDIA TRACHOMATIS Not Detected 23.000 - 31.467 ppm 05/08/2024 7:28 AM EDT [facility] GARDNERELLA VAGINALIS 21.006(A) 19.961 - 24.689 ppm 05/08/2024 7:28 AM EDT [facility] GARDNERELLA VAGINALIS Detected(A) 19.961 - 24.689 ppm 05/08/2024 7:28 AM EDT [facility] MEGASPHAERA (TYPES 1, 2) 14.174(A) 19.961 - 24.689 ppm 05/08/2024 7:28 AM EDT [facility] MEGASPHAERA (TYPES 1, 2) Detected(A) 19.961 - 24.689 ppm 05/08/2024 7:28 AM EDT [facility] NEISSERIA GONORRHOEAE 0.000 23.000 - 32.117 ppm 05/08/2024 7:28 AM EDT [facility] NEISSERIA GONORRHOEAE Not Detected 23.000 - 32.117 ppm 05/08/2024 7:28 AM EDT [facility] TRICHOMONAS VAGINALIS 0.000 23.000 - 32.119 ppm 05/08/2024 7:28 AM EDT [facility] TRICHOMONAS VAGINALIS Not Detected 23.000 - 32.119 ppm 05/08/2024 7:28 AM EDT [facility] MYCOPLASMA GENITALIUM 0.000 19.961 - 24.689 ppm 05/08/2024 7:28 AM EDT [facility] MYCOPLASMA GENITALIUM Not Detected 19.961 - 24.689 ppm 05/08/2024 7:28 AM EDT [facility] ERMB, C; MEFA 18.407(A) 23.000 - 27.611 ppm 05/08/2024 7:28 AM EDT [facility] ERMB, C; MEFA Detected(A) 23.000 - 27.611 ppm 05/08/2024 7:28 AM EDT [facility] TET B, TET M 18.970(A) 23.000 - 27.778 ppm 05/08/2024 7:28 AM EDT [facility] TET B, TET M Detected(A) 23.000 - 27.778 ppm 05/08/2024 7:28 AM EDT [facility] Tissue 05/07/2024 10:5 7 AM EDT 05/08/2024 2:53 AM EDT us Talya [facility]JEDA LAB BLOOD ORDERABLES [facility] [address] [place] [address] * US OB 14+ weeks anatomy scan (04/26/2024 1:20 PM EST) Anatomical Region Laterality Modality Body Ultrasound 04/26/2024 1:20 PM EST Narrative 04/26/2024 1:20 PM EST THIS EXAM WAS PERFORMED AT [facility] NAME: JUAN DIEGORAMEZJoann Shelby : 2000 SEX: F Accession Number: [id number] ORDERING PHYSICIAN: DEMETRIUS RECINOS REFERRING PHYSICIAN: DEMETRIUS RECINOS Coding ----- --------- Procedures [id number]: Ultrasound, uterus, real time with image documentation, and maternal evaluation, after first trimester (> or = 14 weeks 0 days), transabdominal approach; single or first gestation [id number]: Ultrasound, uterus, real time with image documentation, and maternal evaluation, after first trimester (> or = 14 weeks 0 days), transabdominal approach; each additional gestation Indication ----- --------- Viability, Supervision of high risk , Obesity in , Stonewall-Di twin History ----- --------- OB History 1. Para 0 [id number] Current ----- --------- Cell free DNA LOW RISK analysis Maternal Assessment ----- --------- Physical Exam Height 168 cm, 5 ft 6 in. Weight 132 kg, 292 lb. BMI 47.13 kg/m??? Method ----- --------- Transabdominal ultrasound examination. View: Images of optimal diagnostic quality could not be obtained. Suboptimal view: limited by maternal body habitus. Suboptimal view: limited by position ----- --------- Twin . Number of fetuses: 2. Monochorionic-diamniotic Dating ----- --------- LMP on: 01/03/2024 Cycle: regular cycle GA by LMP 16 w + 2 d DORON by LMP: 10/09/2024 Previous Ultrasound on: 02/23/2024 Type of prior assessment: GA GA at prior assessment date 7 w + 0 d GA by previous U/S 16 w + 0 d DORON by previous Ultrasound: 10/11/2024 Ultrasound examination on: 04/26/2024 GA by U/S based upon: AC, BPD, Femur, HC GA by U/S 16 w + 1 d DORON by U/S: 10/10/2024 GA by U/S based upon (Fetus 2): AC, BPD, Femur, HC GA by U/S (Fetus 2) 16 w + 0 d DORON by U/S (Fetus 2): 10/11/2024 Assigned: based on the LMP, selected on 04/26/2024 Assigned GA 16 w + 2 d Assigned DORON: 10/09/2024 Fetus A: General Evaluation ----- --------- Cardiac activity Present. FHR 145 bpm. Presentation: cephalic Placenta: Placental site: posterior, away from cervical os Umbilical cord: Cord vessels: 3 vessel cord. Insertion site: normal insertion Amniotic fluid: Amount of AF: normal amount. MVP 2.9 cm Fetus B: General Evaluation ----- --------- Cardiac activity Present. FHR 146 bpm. Presentation: variable Placenta: Placental site: posterior, away from cervical os Amniotic fluid: MVP 2.1 cm Fetus A: Biometry ----- --------- BPD 35.0 mm 16w 5d 71% Hadlock OFD 40.5 mm 16w 1d 44% Umberto HC 120.5 mm 16w 0d 22% Hadlock AC 106.1 mm 16w 4d 60% Hadlock Femur 18.0 mm 15w 2d 13% Hadlock Humerus 20.5 mm 16w 0d 49% Umberto HC / AC 1.14 13% Hadlock Weight Calculation: EFW 141 g 24% Hadlock EFW (lb,oz) 0 lb 5 oz EFW by Hadlock (JNP-KH-EQ-FL) EFW discordance 2.8 % Head / Face / Neck Biometry: Cephalic index 0.86 97% Nicolaides Extremities / Bony Struc Biometry: FL / BPD 0.51 <1% Hadlock FL / HC 0.15 7% Hadlock FL / AC 0.17 1% Hadlock Tibia 17.6 mm 16w 0d 46% Umberto Fetus B: Biometry ----- --------- BPD 33.3 mm 16w 2d 50% Hadlock OFD 41.2 mm 16w 2d 51% Umberto HC 119.8 mm 16w 0d 20% Hadlock AC 100.0 mm 16w 0d 42% Hadlock Femur 18.9 mm 15w 4d 20% Hadlock Humerus 17.5 mm 15w 0d 10% Umberto HC / AC 1.20 48% Hadlock Weight Calculation: EFW 137 g 18% Hadlock EFW (lb,oz) 0 lb 5 oz EFW by Hadlock (DBS-RC-WR-FL) EFW discordance 2.8 % Head / Face / Neck Biometry: Cephalic index 0.81 63% Nicolaides Extremities / Bony Struc Biometry: FL / BPD 0.57 12% Hadlock FL / HC 0.16 31% Hadlock FL / AC 0.19 23% Hadlock Tibia 16.3 mm 15w 5d 28% Umberto Fetus A: Anatomy ----- --------- The following structures appear normal: Head/Neck: Cranium. Choroid plexus. Face: Lips. Profile. Nose. Nasal bone. Maxilla. Heart/Thorax: Situs. Cardiac size. Cardiac rhythm. Abdomen: Stomach. Bladder. Small bowel. Large bowel. Extremities/Skeleton: Arms. Legs. Skeleton The following structures could not be adequately visualized: Heart / Thorax 4-chamber view. Abdomen Abdom. wall. Cord insertion. Extremities / Hands. Feet. Skeleton The following structures could not be examined: Head / Neck Lateral ventricles. Midline falx. Cavum septi pellucidi. Cerebellum. Cisterna magna. Neck. Nuchal fold. Heart / Thorax RVOT view. LVOT view. 3-vessel view. 5-jkbati-bgqgyje view. Interventricular septum. Great vessels. Cardiac position. Cardiac axis. Diaphragm. Abdomen Kidneys. Right renal artery. Left renal artery. Genitals. Spine: Cervical spine. Thoracic spine. Lumbar spine. Sacral spine. Fetus B: Anatomy ----- --------- The following structures appear normal: Head / Neck Cranium. Head size. Head shape. Right choroid plexus. Left choroid plexus. Heart / Thorax Situs. Cardiac size. Cardiac rhythm. Abdomen Stomach. Bladder. Extremities / Right upper leg. Right lower leg. Left upper leg. Left lower leg. Skeleton The following structures could not be adequately visualized: Head / Neck Cavum septi pellucidi. Heart / Thorax 4-chamber view. Abdomen Cord insertion. Extremities / Right upper arm. Right forearm. Right hand. Left upper arm. Left forearm. Left hand. Right foot. Left foot. The following structures could not be examined: Head / Neck Midline falx. Cerebellum. Cisterna magna. Vermis. Neck. Nuchal fold. Face Lips. Profile. Nose. Heart / Thorax RVOT view. LVOT view. 3-vessel view. 7-tyzcvm-xzlusei view. Aortic arch view. Bicaval view. Ductal arch view. Superior vena cava. Inferior vena cava. Right lung. Left lung. Diaphragm. Abdomen Kidneys. Genitals. Spine Cervical spine. Thoracic spine. Lumbar spine. Sacral spine. Maternal Structures ----- --------- Uterus Visualized Cervix Visualized Approach - Transabdominal Right Ovary Not visualized Left Ovary Not visualized Cul de Sac Visualized. No free fluid visualized Impression ----- --------- Monochorionic-diamniotic twin . Twin A LOWER LEFT is cephalic. EFW is 141 g at the 24% bladder and stomach is identified. Amniotic fluid MVP is 2.9 cm. Twin B UPPER RIGHT is variable. EFW is 137 g at the 18%. bladder and stomach is identified. Amniotic fluid MVP is 2.1 cm. Recommendations ----- --------- Please see MFM documentation from today. The patient is scheduled to return in 2 week(s) for [facility] PSV. Subsequent follow up or other follow up as clinically determined by primary OB provider unless otherwise specified by MFM. Results forwarded to ordering provider so they can follow up with the patient as necessary. Procedure Note Radiology, Radiologist, - 04/26/2024 THIS EXAM WAS PERFORMED AT [facility] NAME: HEATHER ADAMSON : 2000 SEX: F Accession Number: [id number] ORDERING PHYSICIAN: DEMETRIUS RECINOS REFERRING PHYSICIAN: DEMETRIUS RECINOS Coding ----- --------- Procedures [id number]: Ultrasound, uterus, real time with imagedocumentation, and maternal evaluation, after first trimester (> or = 14 weeks 0 days), transabdominalapproach; single or first gestation [id number]: Ultrasound, uterus, real time with imagedocumentation, and maternal evaluation, after first trimester (> or = 14 weeks 0 days), transabdominalapproach; each additional gestation Indication ----- --------- Viability, Supervision of high risk , Obesity in ,Stonewall-Di twin History ----- --------- OB History 1. Para 0 [id number] Current ----- --------- Cell free DNA LOW RISK analysis Maternal Assessment ----- --------- Physical Exam Height 168 cm, 5 ft 6 in. Weight 132 kg, 292 lb. BMI 47.13kg/m??? Method ----- --------- Transabdominal ultrasound examination. View: Images of optimal diagnosticquality could not be obtained. Suboptimal view: limited by maternal body habitus. Suboptimal view: limited by position ----- --------- Twin . Number of fetuses: 2. Monochorionic-diamniotic Dating ----- --------- LMP on: 01/03/2024 Cycle: regular cycle GA by LMP 16 w + 2 d DORON by LMP: 10/09/2024 Previous Ultrasound on: 02/23/2024 Type of prior assessment: GA GA at prior assessment date 7 w + 0 d GA by previous U/S 16 w + 0 d DORON by previous Ultrasound: 10/11/2024 Ultrasound examination on: 04/26/2024 GA by U/S based upon: AC, BPD, Femur, HC GA by U/S 16 w + 1 d DORON by U/S: 10/10/2024 GA by U/S based upon (Fetus 2): AC, BPD, Femur, HC GA by U/S (Fetus 2) 16 w + 0 d DORON by U/S (Fetus 2): 10/11/2024 Assigned: based on the LMP, selected on 04/26/2024 Assigned GA 16 w + 2 d Assigned DORON: 10/09/2024 Fetus A: General Evaluation ----- --------- Cardiac activity Present. FHR 145 bpm. Presentation: cephalic Placenta: Placental site: posterior, away from cervical os Umbilical cord: Cord vessels: 3 vessel cord. Insertion site: normalinsertion Amniotic fluid: Amount of AF: normal amount. MVP 2.9 cm Fetus B: General Evaluation ----- --------- Cardiac activity Present. FHR 146 bpm. Presentation: variable Placenta: Placental site: posterior, away from cervical os Amniotic fluid: MVP 2.1 cm Fetus A: Biometry ----- --------- BPD 35.0 mm 16w 5d 71% Hadlock OFD 40.5 mm 16w 1d 44% Umberto HC 120.5 mm 16w 0d 22% Hadlock AC 106.1 mm 16w 4d 60% Hadlock Femur 18.0 mm 15w 2d 13% Hadlock Humerus 20.5 mm 16w 0d 49% Umberto HC / AC 1.14 13% Hadlock Weight Calculation: EFW 141 g 24% Hadlock EFW (lb,oz) 0 lb 5 oz EFW by Hadlock (CHF-HM-IS-FL) EFW discordance 2.8 % Head / Face / Neck Biometry: Cephalic index 0.86 97% Nicolaides Extremities / Bony Struc Biometry: FL / BPD 0.51 <1% Hadlock FL / HC 0.15 7% Hadlock FL / AC 0.17 1% Hadlock Tibia 17.6 mm 16w 0d 46% Umberto Fetus B: Biometry ----- --------- BPD 33.3 mm 16w 2d 50% Hadlock OFD 41.2 mm 16w 2d 51% Umberto HC 119.8 mm 16w 0d 20% Hadlock AC 100.0 mm 16w 0d 42% Hadlock Femur 18.9 mm 15w 4d 20% Hadlock Humerus 17.5 mm 15w 0d 10% Umberto HC / AC 1.20 48% Hadlock Weight Calculation: EFW 137 g 18% Hadlock EFW (lb,oz) 0 lb 5 oz EFW by Hadlock (GXT-QX-[id number]-FL) EFW discordance 2.8 % Head / Face / Neck Biometry: Cephalic index 0.81 63% Nicolaides Extremities / Bony Struc Biometry: FL / BPD 0.57 12% Hadlock FL / HC 0.16 31% Hadlock FL / AC 0.19 23% Hadlock Tibia 16.3 mm 15w 5d 28% Umberto Fetus A: Anatomy ----- --------- The following structures appear normal: Head/Neck: Cranium. Choroid plexus. Face: Lips. Profile. Nose. Nasal bone. Maxilla. Heart/Thorax: Situs. Cardiac size. Cardiac rhythm. Abdomen: Stomach. Bladder. Small bowel. Large bowel. Extremities/Skeleton: Arms. Legs. Skeleton The following structures could not be adequately visualized: Heart / Thorax 4-chamber view. Abdomen Abdom. wall. Cord insertion. Extremities / Hands. Feet. Skeleton The following structures could not be examined: Head / Neck Lateral ventricles. Midline falx. Cavum septi pellucidi.Cerebellum. Cisterna magna. Neck. Nuchal fold. Heart / Thorax RVOT view. LVOT view. 3-vessel view. 7-kkdkht-nmuhqkm view.Interventricular septum. Great vessels. Cardiac position. Cardiac axis. Diaphragm. Abdomen Kidneys. Right renal artery. Left renal artery. Genitals. Spine: Cervical spine. Thoracic spine. Lumbar spine. Sacral spine. Fetus B: Anatomy ----- --------- The following structures appear normal: Head / Neck Cranium. Head size. Head shape. Right choroid plexus. Leftchoroid plexus. Heart / Thorax Situs. Cardiac size. Cardiac rhythm. Abdomen Stomach. Bladder. Extremities / Right upper leg. Right lower leg. Left upper leg. Leftlower leg. Skeleton The following structures could not be adequately visualized: Head / Neck Cavum septi pellucidi. Heart / Thorax 4-chamber view. Abdomen Cord insertion. Extremities / Right upper arm. Right forearm. Right hand. Left upper arm.Left forearm. Left hand. Right foot. Left foot. The following structures could not be examined: Head / Neck Midline falx. Cerebellum. Cisterna magna. Vermis. Neck. Nuchal fold. Face Lips. Profile. Nose. Heart / Thorax RVOT view. LVOT view. 3-vessel view. 7-fgfrbo-ijaktkk view.Aortic arch view. Bicaval view. Ductal arch view. Superior vena cava. Inferior vena cava. Right lung. Left lung. Diaphragm. Abdomen Kidneys. Genitals. Spine Cervical spine. Thoracic spine. Lumbar spine. Sacral spine. Maternal Structures ----- --------- Uterus Visualized Cervix Visualized Approach - Transabdominal Right Ovary Not visualized Left Ovary Not visualized Cul de Sac Visualized. No free fluid visualized Impression ----- --------- Monochorionic-diamniotic twin . Twin A LOWER LEFT is cephalic. EFW is 141 g at the 24% bladder and stomach is identified. Amniotic fluid MVP is 2.9 cm. Twin B UPPER RIGHT is variable. EFW is 137 g at the 18%. bladder and stomach is identified. Amniotic fluid MVP is 2.1 cm. Recommendations ----- --------- Please see [facility] documentation from today. The patient is scheduled to return in 2 week(s) for [facility] PSV. Subsequent follow up or other follow up as clinically determined byprimary OB provider unless otherwise specified by [facility]. Results forwarded to ordering provider so they can follow up with thepatient as necessary. us Demetrius Jorje DO IMG OB US PROCEDURES Final Resul t documented in this encounter Visit Diagnoses Not on filedocumented in this encounter Care Teams Cnc Mill Set Up Operator Relationship Specialty Start Date End Date Edith Ford MD [address] [place] [address] PCP - General Family Medicine 09/01/22 documented as of this encounter
--- OUTSIDE RECORDS SUMMARY | 2024-08-28 07:05 | XMS_ITS | Encounter Summary ---
Author Organization [facility] Address [address] [place] [address] Care Team Providers Care Clinical Specialist Medical Device Name Role Phone Edith Ford MD Primary Care Provider +1- [phone] Encounter Details Date Type Department Care Team (Late Contact Info) Description 08/01/2024 Abstract [facility] [address] [facility] [place] [address] [place] [address] [address], [place] [address] Social History Tobacco Use Types Packs/Day Years [...] [facility] [address] [place] [address] Dhruv Recinos, [facility] [address] [place], [place] [id number] documented as of this encounter Visit Diagnoses Not on filedocumented in this encounter Care Teams Clinical Specialist Medical Device Relationship Specialty Start Date End Date Edith Ford MD [address] [place] [address] PCP - General Family Medicine 09/01/22 documented as of this encounter
--- OUTSIDE RECORDS SUMMARY | 2024-08-28 07:05 | XMS_ITS | Encounter Summary ---
Author Organization [facility] Address [address] [place] [address] Care Team Providers Care Brushing Machine Operator Name Role Phone Edith Ford MD Primary Care Provider +1- [phone] Encounter Details Date Type Department Care Team (Late st Contact Info) Description 07/17/2024 Results Follow-Up [facility] [address] [facility] [place] [address] Kim Estes LPN [address] [place] [id number] Social History Tobacco Use Types Packs/Day Years [...] Encounter Note - Kim Estes LPN - 07/17/2024 2:47 PM EDT Added to fs. Pt comes in tomorrow documented in this encounter Plan of Treatment Upcoming Encounters Date Type Department Care Team (Late Contact Info) Description 08/28/2024 1:00 PM EDT Routine [facility] [address] [facility] [place] [place] [id number] Dhruv Recinos DO [address] [facility] [place] [address] documented as of this encounter Visit Diagnoses Not on filedocumented in this encounter Care Teams Brushing Machine Operator Relationship Specialty Start Date End Date Edith Ford MD [address] [place] [address] PCP - General Family Medicine 09/01/22 documented as of this encounter
--- OUTSIDE RECORDS SUMMARY | 2024-08-28 07:05 | XMS_ITS | Encounter Summary ---
Author Organization [facility] tem Address [id number] [address] [place] [address] Care Team Providers Care Supervisor Matrix Name Role Phone Unavailable Primary Care Provider Unavailabl e Encounter Details Date Type Department Care Team (Late Contact Info) Description 06/04/2024 Orders Only Maternal- Medicine at [facility] [address] [place] [id number] Ref Prov, [place] [address] Social History Tobacco Use Types Packs/Day Years [...] got money to buy more. Never True 05/27/2024 Within the past 12 months th e food we bought just didn't last and we didn't have money to get more. Never True 05/27/2024 Estimated Date of Delivery Comme nts Yes [...] Department Care Team (Late Contact Info) Description 08/29/2024 3:30 PM EDT Appointment [facility] US Imaging [address] [place] [address] 09/11/2024 1:30 PM EDT Appointment [facility] US Imaging [address] [place] [address] documented as of this encounter Procedures Procedure Name Priority Date/Time Associated Diagnosis Comments ULTRASOUND OFFICE Routine 05/31/2024 3:00 PM EDT ULTRASOUND OFFICE Routine 05/31/2024 2:59 PM EDT documented in this encounter Results * Ultrasound - Office (05/31/2024 3:00 PM EDT) Anatomical Region Laterality Modality AMB Ultrasound us Not In System Ref Prov IMG US ORDERABLES Final R esult * Ultrasound - Office (05/31/2024 2:59 PM EDT) Anatomical Region Laterality Modality AMB Ultrasound us Not In System Ref Prov IMG US ORDERABLES Final R esult documented in this encounter Visit Diagnoses Not on filedocumented in this encounter
--- OUTSIDE RECORDS SUMMARY | 2024-08-28 07:05 | XMS_ITS | Encounter Summary ---
Author Organization [facility] Address [address] [place] [address] Care Team Providers Care Obstetrics And Gynecology Professor Name Role Phone Edith Ford MD Primary Care Provider +1- [phone] Encounter Details Date Type Department Care Team (Late Contact Info) Description 07/18/2024 Abstract [facility] [address] [facility] [place] [place] [address] [place] [address] [address] [place], [facility] Social History Tobacco Use Types Packs/Day Years [...] Description 08/28/2024 1:00 PM EDT Routine [facility] [address] [place] [address] Dhruv Recinos, [facility] [address] [place], [place] [id number] documented as of this encounter Visit Diagnoses Not on filedocumented in this encounter Care Teams Obstetrics And Gynecology Professor Relationship Specialty Start Date End Date Edith Ford MD [address] [place] [address] PCP - General Family Medicine 09/01/22 documented as of this encounter
--- OUTSIDE RECORDS SUMMARY | 2024-08-28 07:05 | XMS_ITS | Encounter Summary ---
Author Organization [facility] Address [address] [place] [address] Care Team Providers Care Electronics Processing Supervisor Name Role Phone Edith Ford MD Primary Care Provider +1- [phone] Encounter Details Date Type Department Care Team (Late Contact Info) Description 04/03/2024 Abstract [facility] [address] [place] [address] [place] [address] [address] [place], [place] [address] Social History Tobacco Use Types Packs/Day Years [...] Description 08/28/2024 1:00 PM EDT Routine [facility] [address] [place] [address] Dhruv Recinos, [facility] [place], [place] [id number] documented as of this encounter Visit Diagnoses Not on filedocumented in this encounter Care Teams Electronics Processing Supervisor Relationship Specialty Start Date End Date Edith Ford MD [address] [place] [address] PCP - General Family Medicine 09/01/22 documented as of this encounter
--- OUTSIDE RECORDS SUMMARY | 2024-08-28 07:05 | XMS_ITS | Encounter Summary ---
Author Organization [facility] Address [address] [place] [address] Care Team Providers Care Childhood Development Teacher Name Role Phone Edith Ford MD Primary Care Provider +1- [phone] Encounter Details Date Type Department Care Team (Late Contact Info) Description 03/22/2024 Abstract [facility] [address] [facility] [place] [address] [place] [address] [address] [place], [facility] Social History Tobacco Use Types Packs/Day [...] Description 08/28/2024 1:00 PM EDT Routine [facility] [address] [place] [address] Dhruv Recinos, [facility] [place], [place] [id number] documented as of this encounter Visit Diagnoses Not on filedocumented in this encounter Care Teams Childhood Development Teacher Relationship Specialty Start Date End Date Edith Ford MD [address] [place] [address] PCP - General Family Medicine 09/01/22 documented as of this encounter
--- OUTSIDE RECORDS SUMMARY | 2024-08-28 07:05 | XMS_ITS | Clinical Summary ---
Author Organization [facility] Address [address] [place] [address] Care Team Providers Care Real Estate Sales Associate Name Role Phone Edith Ford MD Primary Care Provider +1- [phone] Allergies Active Allergy Reactions Criticality Noted Date Comments Sumatriptan Shortness of breath High 08/14/2016 Theophyllines Hives,Rash Low 09/28/2010 Medications Vit-Fe Fumarate-FA ( Vitamins) 28-0.8 MG tabletIndications:Pr egnancy, unspecified gestational age ([facility]Encounter for supervision of normal first in first trimester ([facility]) Take 1 tablet by mouth Daily 30 tablet 5 03/08/19 26 Active aspirin 81 MG EC tablet Take 81 mg by mouth 1 (one) time 5 Active folic acid (Folvite) 1 MG tablet Take 1 mg by mouth in the morning. 5 11/23/19 25 Active magnesium oxide (Mag-Ox) 400 MG tabletIndications:No nintractable headache, unspecified chronicity pattern, unspecified headache type Take 1 tablet (400 mg) by mouth Daily 30 tablet 6 5 08/31/19 25 Active iron polysaccharides (ProFe) 391.3 (180 Fe) MG capsuleIndications:O ther iron deficiency anemia Take 1 capsule (391.3 mg) by mouth Daily 30 capsule 6 5 09/21/19 25 Active Active Problems Estimated Date of Delivery Comme nts Yes 10/09/2024 Based on last me nstrual period of 01/03/2024 No known active problems Encounters Date Type Department Care Team Description 08/26/2024 Abstract [facility] [address] [place] [address] Dhruv Recinos, 08/21/2024 1:00 PM EDT Routine [facility] [address] [place] [address] Talya Reyna PA 33 weeks gestation of ([facility]); Third trimester ([facility]); Monochorionic diamniotic twin , antepartum ([facility]); Nonintractable headache, unspecified chronicity pattern, unspecified headache type; Other iron deficiency anemia 08/21/2024 Bamboo flowsheet [facility] [address] [place] [address] Talya Reyna PA 08/16/2024 Abstract [facility] [address] [place] [address] Dhruv Recinos, DO 08/05/2024 1:50 PM EDT Routine [facility] [address] [place] [address] Dhruv Recinos, 30 weeks gestation of ([facility]); Third trimester ([facility]) 08/05/2024 Bamboo flowsheet [facility] [address] [place] [address] Dhruv Recinos, 08/01/2024 Abstract [facility] [address] [place] [address] Dhruv Recinos, DO 07/31/2024 Telephone [facility] [address] [place] [address] Dhruv Recinos, DO 07/30/2024 Abstract [facility] [address] [place] [address] Dhruv Recinos, DO 07/18/2024 1:30 PM EDT Routine [facility] [address] [place] [address] Talya Reyna PA 28 weeks gestation of ([facility]); Third trimester ([facility]) 07/18/2024 Abstract [facility] [address] [place] [address] Dhruv Recinos, 07/18/2024 Bamboo flowsheet [facility] [address] [place] [address] Talya Reyna PA 07/17/2024 Results Follow-Up [facility] [address] [place] [address] Kim Estes, PUBLIC ADDRESS ANNOUNCER 07/17/2024 Telephone [facility] [address] [place] [address] Kim Estes, PUBLIC ADDRESS ANNOUNCER 07/16/2024 Clinisync Result Encounter [facility] External Department Unsolicited Dhruv Recinos, 07/05/2024 Abstract [facility] [address] [place] [address] Dhruv Recinos, 06/26/2024 3:00 PM EDT Routine [facility] [address] [place] [address] Dhruv Recinos, Second trimester ([facility]); 25 weeks gestation of ([facility]); Diabetes mellitus screening; Monochorionic diamniotic twin , antepartum ([facility]) 06/26/2024 Bamboo flowsheet [facility] [address] [place] [address] Dhruv Recinos, 06/17/2024 Abstract [facility] [address] [place] [address] Dhruv Recinos, from Last 3 Months Family History Medical History Relation Name Comments Diabetes Father Heart disease Father Diabetes Maternal Grandfather Diabetes Maternal Grandmother Heart disease Maternal Grandmother Mental illness Mother Mental illness Paternal Grandmother Relation Name Status Comments Father Alive Maternal Grandfather Maternal Grandmother Mother Alive Paternal Grandmother Social History Tobacco Use Types Packs/Day Years Used Date Smoking Tobacco: Never Passive Smoke Exposure: Never Smokeless Tobacco: Never Tobacco Cessation:Counseling Given: Yes Alcohol Use Standard Drinks/Week Comments Never 0 (1 standard drink = 0.6 oz pur e alcohol) Estimated Date of Delivery Comme nts Yes 10/09/2024 Based on last me nstrual period of 01/03/2024 Sex and Gender Information Value Date Recorded Sex Assigned at Not on file Legal Sex Female 8:06 PM EDT Gender Identity Not on file Sexual Orientation Not on file Last Filed Vital Signs Vital Sign Reading Time Taken Comments Blood Pressure 120/72 08/21/2024 1:30 PM EDT Pulse 89 06/29/2023 4:38 PM EDT Temperature - - Respiratory Rate - - Oxygen Saturation - - Inhaled Oxygen Concentration - - Weight 145 kg (320 lb 6.4 oz) 08/21/2024 1:30 PM EDT Height 167.6 cm (5' 6 ) 06/02/2022 12:00 PM EDT Body Mass Index 51.71 06/02/2022 12:00 PM EDT Plan of Treatment Upcoming Encounters Date Type Department Care Team (Late st Contact Info) Description 08/28/2024 1:00 PM EDT Routine [facility] [address] [place] [address] Dhruv Recinos, DO [address] [place] [address] Health Maintenance Due Date Last Done Comments Influenza Vaccine (Season Ended) 2024 Procedures Procedure Name Priority Date/Time Associated Diagnosis Comments POCT URINALYSIS DIPSTICK Routine 08/21/2024 1:39 PM EDT 33 weeks gestation of ([facility]) Third trimester ([facility]) Monochorionic diamniotic twin , antepartum ([facility]) POCT URINALYSIS DIPSTICK Routine 08/05/2024 2:25 PM EDT 30 weeks gestation of ([facility]) Third trimester ([facility]) POCT URINALYSIS DIPSTICK Routine 07/18/2024 1:44 PM EDT 28 weeks gestation of ([facility]) Third trimester ([facility]) ALL CBC WITH AUTO DIFF Routine 07/16/2024 9:24 AM EDT GLUCOSE 1 HOUR Routine 07/16/2024 9:24 AM EDT POCT URINALYSIS DIPSTICK Routine 06/26/2024 3:51 PM EDT Second trimester ([facility]) from Last 3 Months Results * (ABNORMAL) POCT urinalysis dipstick manually resulted (08/21/2024 1:39 PM EDT) Only the most recent of4 resultswithin the time period is included. Color, UA Yellow Clarity, UA Clear Glucose, [...] CARE TEST ENTER/EDIT OR DERABLES Final Result * (ABNORMAL) GLUCOSE 1 HOUR (07/16/2024 9:24 AM EDT) GLUCOSE 1 HOUR 157(H) <130 mg/dL TBH 07/16/2024 9:24 AM EDT 07/16/2024 9:25 AM EDT Narrative [facility] - 07/16/2024 9:41 AM EDT us Dhruv Recinos DO LAB BLOOD ORDERABLES Final Resul t [facility] TB * (ABNORMAL) ALL CBC WITH AUTO DIFF (07/16/2024 9:24 AM EDT) TBH WBC 13.2(H) 4.0 - 11.0 10 3/uL TBH TBH RBC 3.78(L) 4.20 - 5.40 10 6/uL TBH TBH HGB 9.9(L) 12.0 - 16.0 g/dL TBH TBH HCT 31.1(L) 36.0 - 48.0 % TBH TBH MCV 82.3 81.0 - 99.0 fL TBH TBH MCH 26.2(L) 26.7 - 34.0 pg TBH TBH MCHC 31.8 29.9 - 35.2 g/dL TBH TBH RDW 15.3(H) 11.0 - 15.0 % TBH TBH PLT 243 150 - 450 10 3/uL TBH TBH MPV 11.5 9.5 - 13.5 fL TBH NEUTROPHILS PERCENT AUTO 81.8(H) 43.0 - 75.0 % TBH LYMPHOCYTES PERCENT AUTO 12.7(L) 20.5 - 60.0 % TBH MONOCYTES PERCENT AUTO 4.0 1.7 - 12.0 % TBH TBH EO % 0.9 0.9 - 7.0 % TBH BASOPHILS PERCENT AUTO 0.2 0.2 - 2.0 % TBH IMMATURE GRANULOCYTES PCT AUTO 0.4 0.0 - 0.5 % TBH NEUTROPHILS ABSOLUTE AUTO 10.8(H) 1.4 - 6.5 10 3/uL TBH LYMPHOCYTES ABSOLUTE AUTO 1.7 1.2 - 3.8 10 3/uL TBH MONOCYTES ABSOLUTE AUTO 0.5 0.3 - 0.8 10 3/uL TBH TBH EO # 0.1 0.0 - 0.7 10 3/uL TBH BASOPHILS ABSOLUTE AUTO 0.0 0.0 - 0.1 10 3/uL TBH IMMATURE GRANULOCYTES ABS AUTO 0.05(H) 0.00 - 0.03 10 3/uL [facility] 07/16/2024 9:24 AM EDT 07/16/2024 9:25 AM EDT Narrative [facility] - 07/16/2024 9:41 AM EDT us Dhruv Jorje DO [facility] Final Result [facility] TB from Last 3 Months Insurance [employer] Care Teams Real Estate Sales Associate Relationship Specialty Start Date End Date Edith Fodr MD [address] [place] [address] PCP - General Family Medicine 09/01/22
--- OUTSIDE RECORDS SUMMARY | 2024-08-28 07:05 | XMS_ITS | Clinical Summary ---
Author Organization [employer] tem Address [facility] [id number] [address] [place] [address] Care Team Providers Care Learning Center Coordinator Name Role Phone Unavailable Primary Care Provider Unavailabl e Allergies Active Allergy Reactions Criticality Noted Date Comments Sumatriptan Shortness Of Breath High 04/11/2024 Theophylline Hives,Rash High 04/11/2024 Medications PNV cmb#95-ferrous fumarate-FA () 28 mg iron- 800 mcg tablet Take 1 tablet by mouth in the morning. Active ondansetron ODT (ZOFRAN ODT) 4 mg disintegrating tablet Dissolve 1 tablet (4 mg total) on tongue every 8 (eight) hours as needed for nausea or vomiting. Active metFORMIN XR (GLUCOPHAGE XR) 500 mg 24 hr tablet Take 1 tablet (500 mg total) by mouth daily with breakfast. Active sertraline (ZOLOFT) 100 mg tablet Take 1 tablet (100 mg total) by mouth in the morning. Active acetaminophen (TYLENOL EXTRA STRENGTH) 500 mg tablet Take 2 tablets (1,000 mg total) by mouth every 6 (six) hours as needed for pain. Active aspirin 81 mgIndications:16 weeks gestation of ,Monochori onic diamniotic twin gestation in second trimester Take 1 tablet once a day until delivery and then stop 30 tablet 6 5 Active folic acid (FOLVITE) 1 mg tabletIndications:1 6 weeks gestation of ,Monochori onic diamniotic twin gestation in second trimester Take 1 tablet (1 mg total) by mouth in the morning for 210 days. 30 tablet 6 5 11/23/19 25 Active Active Problems Patient Care Coordination No te Formatting of this note migh t be different from the original. CARE COORDINATION DIAGNOSIS: Laurens Di Twins with 28% Discordancy Resolved Pt removed from NICU list Referring OB: Jorje MFM: Julian Maternal Hx: MSAFP: cfDNA: Low risk Monozygotic XX XX Carrier: Neg 05/31 Amnio: []Genetic Counselling: []Peds Cardiology: []Peds Urology: []Peds Ortho: []Peds Surgery: []Peds Neurology: []Peds Neurosurgery: []Peds Craniofacial: []NICU Consult: []Palliative Care Consult: []SGM: []Life Connection: [x][place]: 05/31/24 Today's imaging is very reassuring. Normal anatomy and echocardiogram without anomalies. Additionally, no evidence of twin-twin transfusion syndrome (TTTS), twin-anemia polycythemia sequence (TAPS), or selective growth restriction (sFGR). No interventions are recommended at this time. Can resume follow up with primary MFM. [] MRI: []Nationwide: [][facility]: [][facility]: [x][facility]: Delivery Recommendation: [] Term at local hospital [] Term at [facility] Surveillance Plan: [x] Survey at 20 weeks Sched 06/21/24 with Echoes and Dopplers and Dr. Jordan OV [] Growth q __ weeks [x] Dopplers with TTT Protocol sched 06/07/24 [] Echo at __ weeks [] Cervical length q __ weeks [] TTTS q __ weeks [] Wkly NST/MELODY starting at __ weeks [] 2x/wk NST/MELODY starting at __ weeks Problem Noted Date Diagnosed Date Echogenic intracardiac focus of fetus on ultrasound 05/27/2024 Monochorionic diamniotic twin gestation in secon d trimester 04/26/2024 Depression affecting 04/26/2024 Estimated Date of Delivery Comme nts Yes 10/09/2024 Based on last me nstrual period of 01/03/2024 Encounters Date Type Department Care Team Description 08/16/2024 Orders Only Maternal- Medicine at [facility] [address] [place] [address] Elizabeth Wang RN Monochorionic 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 (Primary Dx) 08/16/2024 Telephone Maternal- Medicine at [facility] [address] [place] [address] Aiden Reddy MD 08/15/2024 11:30 AM EDT - 08/15/2024 11:59 PM EDT Hospital Encounter [facility] US Imaging [address] [place] [address] Monochorionic 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 Discharge Disposition: Home 08/15/2024 Travel 07/31/2024 3:30 PM EDT - 07/31/2024 11:59 PM EDT Hospital Encounter [facility] US Imaging [address] [place] [address] Monochorionic 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 Discharge Disposition: Home 07/31/2024 Travel 07/17/2024 2:00 PM EDT Office Visit Maternal- Medicine at [facility] [address] [place] [address] Aiden Reddy MD Monochorionic diamniotic twin gestation in second trimester (Primary Dx) 07/17/2024 1:15 PM EDT - 07/17/2024 11:59 PM EDT Hospital Encounter [facility] US Imaging [address] [place] [address] Monochorionic diamniotic twin gestation in second trimester; Echogenic intracardiac focus of fetus on ultrasound; 24 weeks gestation of Discharge Disposition: Home 07/17/2024 Orders Only Maternal- Medicine at [facility] [address] [place] [address] Elizabeth Wang RN Monochorionic 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 (Primary Dx) 07/17/2024 Travel 07/05/2024 8:00 AM EDT - 07/05/2024 11:59 PM EDT Hospital Encounter [facility] US Imaging [address] [place] [address] Monochorionic diamniotic twin gestation in second trimester; Echogenic intracardiac focus of fetus on ultrasound; 24 weeks gestation of Discharge Disposition: Home 07/05/2024 Travel 06/24/2024 Orders Only Maternal- Medicine at [facility] [address] [place] [address] Lara Borrero RN Monochorionic diamniotic twin gestation in second trimester (Primary Dx); Echogenic intracardiac focus of fetus on ultrasound; 24 weeks gestation of 06/21/2024 11:30 AM EDT Office Visit Maternal- Medicine at [facility] [address] [place] [address] Kvng Jordan MD 24 weeks gestation of (Primary Dx); Monochorionic diamniotic twin gestation in second trimester 06/21/2024 8:27 AM EDT - 06/21/2024 11:59 PM EDT Hospital Encounter [facility] US Imaging [address] [place] [address] Monochorionic diamniotic twin gestation in second trimester; Echogenic intracardiac focus of fetus on ultrasound Discharge Disposition: Home 06/21/2024 Telephone Maternal- Medicine at [facility] [address] [place] [address] Oneida Brunson 06/21/2024 Travel 06/14/2024 Travel 06/12/2024 Orders Only Maternal- Medicine at [facility] [address] [place] [address] Elizabeth Wang RN Monochorionic diamniotic twin gestation in second trimester (Primary Dx); Echogenic intracardiac focus of fetus on ultrasound 06/07/2024 Travel 06/04/2024 Orders Only Maternal- Medicine at [facility] [address] [place] [address] Ref Prov, Not In System from Last 3 Months Family History Medical History Relation Name Comments Diabetes Father Heart disease Father Diabetes Maternal Grandfather Heart disease Maternal Grandmother Mental illness Mother Diabetes Paternal Grandmother Mental illness Paternal Grandmother Relation Name Status Comments Father Maternal Grandfather Maternal Grandmother Mother Paternal Grandmother Social History Tobacco Use Types Packs/Day Years Used Date Smoking Tobacco: Never Smokeless Tobacco: Never Tobacco Cessation:Counseling Given: Not Answered [...] Sign Reading Time Taken Comments Blood Pressure 108/72 07/17/2024 2:16 PM EDT Pulse 92 07/17/2024 2:16 PM EDT Temperature - - Respiratory Rate - - Oxygen Saturation - - Inhaled Oxygen Concentration - - Weight 143 kg (315 lb 4.8 oz) 07/17/2024 2:16 PM EDT Height 167.6 cm (5' 5.98 ) 07/17/2024 2:16 PM ED T Body Mass Index 50.92 07/17/2024 2:16 PM EDT Plan of Treatment Upcoming Encounters Date Type Department Care Team (Late st Contact Info) Description 08/29/2024 3:30 PM EDT Appointment [facility] US Imaging [address] [place] [address] 09/11/2024 1:30 PM EDT Appointment [facility] US Imaging [address] [place] [address] Health Maintenance Due Date Last Done Comments Depression Screening 2010 Adult BMI Follow Up Plan 2016 DTaP,Tdap and Td Vaccines (7 - Td or Tdap) 11/27/2021 11/28/2011, 10/29/2003, 12/29/1999, Additional history exists Influenza Vaccine 10/28/2024 01/30/2012 Adult BMI Screening 07/17/2025 07/17/2024 Tobacco Screening 07/17/2025 07/17/2024 Pap Smear 05/08/2027 05/07/2024 Medical Devices Not on file Procedures Procedure Name Priority Date/Time Associated Diagnosis Comments US MF OB FOLLOW-UP, 1 FETUS Routine 08/15/2024 12:55 PM EDT Monochorionic 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 US MFM LMTD OB, 1 OR MORE FETUS Routine 07/31/2024 4:27 PM EDT Monochorionic 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 US MFM OB FOLLOW-UP, 1 FETUS Routine 07/17/2024 3:08 PM EDT Monochorionic diamniotic twin gestation in second trimester Echogenic intracardiac focus of fetus on ultrasound 24 weeks gestation of US MFM LMTD OB, 1 OR MORE FETUS Routine 07/05/2024 9:24 AM EDT Monochorionic diamniotic twin gestation in second trimester Echogenic intracardiac focus of fetus on ultrasound 24 weeks gestation of US MFM OB FOLLOW-UP, 1 FETUS Routine 06/21/2024 10:56 AM EDT Monochorionic diamniotic twin gestation in second trimester Echogenic intracardiac focus of fetus on ultrasound US MFM LMTD OB, 1 OR MORE FETUS Routine 06/14/2024 3:40 PM EDT Monochorionic diamniotic twin , antepartum Obesity in , antepartum US MFM LMTD OB, 1 OR MORE FETUS Routine 06/07/2024 11:21 AM EDT Monochorionic diamniotic twin gestation in second trimester ULTRASOUND OFFICE Routine 05/31/2024 3:0 0 PM EDT ULTRASOUND OFFICE Routine 05/31/2024 2:5 9 PM EDT from Last 3 Months Results * US MFM OB FOLLOW-UP, 1 FETUS (08/15/2024 12:55 PM EDT) Only the most recent of7 resultswithin the time period is included. Anatomical Region Laterality Modality OB-TYPE INSPECTOR Ultrasound 08/15/2024 12:0 6 PM EDT Narrative 08/15/2024 12:57 PM EDT NAME: HEATHER ADAMSON : 2000 SEX: F Accession Number: [id number] ORDERING PHYSICIAN: AIDEN REDDY REFERRING PHYSICIAN: DEMETRIUS BRYSON Coding ----- --------- Procedures [id number]: Follow-up Ultrasound, per fetus. 2 Indication ----- --------- Obesity in , Laurens-Di twin , Supervision of high risk - A - EIF. History ----- --------- OB History 1. Para 0 [id number] Current ----- --------- Cell free DNA LOW [...] EFW (oz) 5 oz EFW by: Hadlock (TYH-QH-DU-FL) Extended Tibia 52.1 mm 30w 6d 24% Umberto Insulation Helper 3.2 mm CM 4.0 mm <1% Nicolaides [...] EFW (oz) 11 oz EFW by: Hadlock (UZB-SL-PJ-FL) Extended Tibia 53.7 mm 31w 5d 44% Umberto Insulation Helper 3.9 mm CM 5.6 mm 10% Nicolaides [...] ADAMSON : 2000 SEX: F Accession Number: [id number] ORDERING PHYSICIAN: AIDEN REDDY REFERRING PHYSICIAN: DEMETRIUS BRYSON Coding ----- --------- Procedures [id number]: Follow-up Ultrasound, per fetus. 2 Indication ----- --------- Obesity in , Laurens-Di twin , Supervision of high riskpregnancy - A - EIF. History ----- --------- OB History 1. Para 0 [id number] Current ----- --------- Cell free DNA LOW [...] EFW (oz) 5 oz EFW by: Hadlock (SOG-OH-UK-FL) Extended Tibia 52.1 mm 30w 6d 24% Umberto Insulation Helper 3.2 mm CM 4.0 mm <1% Nicolaides [...] EFW (oz) 11 oz EFW by: Hadlock (IXW-TN-SI-FL) Extended Tibia 53.7 mm 31w 5d 44% Umberto Insulation Helper 3.9 mm CM 5.6 mm 10% Nicolaides [...] byprimary OB provider unless otherwise specified by MFM. Results forwarded to ordering provider so they can follow up with thepatient as necessary. us Aiden Reddy MD [facility] US ORDERABLES Final Resul t * Ultrasound - Office (05/31/2024 3:00 PM EDT) Only the most recent of2 resultswithin the time period is included. Anatomical Region Laterality Modality AMB Ultrasound us Not In System Ref Prov IMG US ORDERABLES Final R esult from Last 3 Months Insurance [employer]
--- OUTSIDE RECORDS SUMMARY | 2024-08-28 07:05 | XMS_ITS | Encounter Summary ---
Author Organization [facility] Address [address] [place] [address] Care Team Providers Care Data Acquisition Technician Name Role Phone Edith Ford MD Primary Care Provider [phone]- [phone] Encounter Details Date Type Department Care Team (Late Contact Info) Description 07/30/2024 Abstract [facility] [address] [facility] [place] [address] [place] [address] [address], [place] [address] Social History Tobacco Use Types Packs/Day Years [...] Description 08/28/2024 1:00 PM EDT Routine [facility] [address] [place] [address] Dhruv Recinos, [facility] [address], [place] [id number] documented as of this encounter Visit Diagnoses Not on filedocumented in this encounter Care Teams Data Acquisition Technician Relationship Specialty Start Date End Date Edith Ford MD [address] [place] [address] PCP - General Family Medicine 09/01/22 documented as of this encounter
--- OUTSIDE RECORDS SUMMARY | 2024-08-28 07:05 | XMS_ITS | Encounter Summary ---
Author Organization [facility] tem Address [facility] [id number] [address] [place] [address] Care Team Providers Care Visual C Developer Name Role Phone Unavailable Primary Care Provider Unavailabl e Encounter Details Date Type Department Care Team (Late Contact Info) Description 04/11/2024 Orders Only Maternal- Medicine at [facility] [place] [address] [place] [address] Ref Prov, [place] [address] Social History Tobacco Use Types Packs/Day Years Used Date Smoking Tobacco: Never Smokeless Tobacco: Never Alcohol Use Standard Drinks/Week Comments Never 0 (1 standard drink = 0.6 oz pur e alcohol) Childcare Answer Date Recorded Childcare Unknown 08/07/2018 Employment Answer Date Recorded Employment Unknown 08/07/2018 Estimated Date of Delivery Comme nts Yes [...] Info) Description 08/29/2024 3:30 PM EDT Appointment [facility] US Imaging [address] [place] [address] 09/11/2024 1:30 PM EDT Appointment [facility] Imaging [address] [place] [address] documented as of this encounter Procedures Procedure Name Priority Date/Time Associated Diagnosis Comments UNLISTED LAB TEST Routine 03/15/2024 12:16 PM EST UNLISTED LAB TEST Routine 03/15/2024 12:14 PM EST ULTRASOUND OFFICE Routine 02/23/2024 12:24 PM EST documented in this encounter Results * Unlisted Lab Test (03/15/2024 12:16 PM EST) us Not In System Ref Prov LAB BLOOD ORDERABLES Dang l Result Performing Organization Address [facility] de Phone Number MANUALLY TRANSCRIBED RESULTS * Unlisted Lab Test (03/15/2024 12:14 PM EST) us Not In System Ref Prov LAB BLOOD ORDERABLES Dang l Result Performing Organization Address [facility] de Phone Number MANUALLY TRANSCRIBED RESULTS * Ultrasound - Office (02/23/2024 12:24 PM EST) Anatomical Region Laterality Modality AMB Ultrasound us Not In System Ref Prov IMG US ORDERABLES Final R esult documented in this encounter Visit Diagnoses Not on filedocumented in this encounter
--- OUTSIDE RECORDS SUMMARY | 2024-08-28 07:05 | XMS_ITS | Encounter Summary ---
Author Organization [facility] tem Address [facility] [id number] [address] [place] [address] Care Team Providers Care Certified Physical Therapist Assistant Name Role Phone Unavailable Primary Care Provider Unavailabl e Encounter Details Date Type Department Care Team ([facility] st Contact Info) Description 08/16/2024 Telephone Maternal- Medicine at [facility] [address] [place] [phone] Aiden Meza MD [address] [facility] [address] [address] [place] [address] Social History Tobacco Use Types Packs/Day Years [...] as of this encounter Miscellaneous Notes * Telephone Encounter - Gillian Beatty - 08/16/2024 1:54 PM EDT Electric Freight Car Operator [email or web address] providing 08/29 & 09/11 appt details and requested a return call if she had any issues or concerns. documented in this encounter Plan of Treatment Upcoming Encounters Date Type Department Care Team (Late st Contact Info) Description 08/29/2024 3:30 PM EDT Appointment [facility] US Imaging [address] [place] [address] 09/11/2024 1:30 PM EDT Appointment [facility] US Imaging [address] [place] [address] documented as of this encounter Visit Diagnoses Not on filedocumented in this encounter
--- OUTSIDE RECORDS SUMMARY | 2024-08-28 07:05 | XMS_ITS | Encounter Summary ---
Author Organization [facility] tem Address [facility] [id number] [address] [place] [address] Care Team Providers Care Line Construction Superintendent Name Role Phone Unavailable Primary Care Provider Unavailabl e Encounter Details Date Type Department Care Team (Latest Contact Info) Description 08/15/2024 Travel Social History Tobacco Use Types Packs/Day Years [...] Info) Description 08/29/2024 3:30 PM EDT Appointment [facility] Imaging [address] [place] [address] 09/11/2024 1:30 PM EDT Appointment [facility] Imaging [address] [place] [address] documented as of this encounter Visit Diagnoses Not on filedocumented in this encounter
--- OUTSIDE RECORDS SUMMARY | 2024-08-28 07:05 | XMS_ITS | Encounter Summary ---
Author Organization [facility] Address [address] [place] [address] Care Team Providers Care Interactive Marketing Strategist Name Role Phone Edith Ford MD Primary Care Provider +1- [phone] Encounter Details Date Type Department Care Team (Late Contact Info) Description 07/05/2024 Abstract [facility] [address] [facility] [place] [address] [place] [address] [address], [place] [address] Social History Tobacco Use Types Packs/Day Years [...] Description 08/28/2024 1:00 PM EDT Routine [facility] [address] [place] [address] Dhruv Recinos, [facility] [address] [place], [place] [phone] documented as of this encounter Visit Diagnoses Not on filedocumented in this encounter Care Teams Interactive Marketing Strategist Relationship Specialty Start Date End Date Edith Ford MD [address] [place] [address] PCP - General Family Medicine 09/01/22 documented as of this encounter
--- OUTSIDE RECORDS SUMMARY | 2024-08-28 07:06 | XMS_ITS | CCD ---
Author Organization [facility] Care Team Providers Care Lottery Office Manager Name Role Phone Edith Ford Primary Care [...] Unavailable MISC, DR KATHLEEN Primary Care Unavailable EIELEN ., JOURDAN Admitting Unavailable EILEEN ., JOURDAN Attending Unavailable TALYA WOODARD Consulting Unavailable SHADY, DR TEJADA Consulting Unavailable MISC, DR KATHLEEN Primary Care Unavailable EILEEN ., JOURDAN Admitting Unavailable EILEEN ., JOURDAN Attending Unavailable EILEEN ., JOURDAN Consulting Unavailable JULIETAC, DR KATHLEEN Primary Care Unavailable MAHAMED ., DR MALLORY Consulting Unavailable MAHAMED ., DR MALLORY Admitting Unavailable MAHAMED ., DR MALLORY Attending Unavailable SHADY, DR TEJADA Consulting Unavailable MISC, DR KATHLEEN [...] Unavailable Primary Care Provider Unavailabl e Jorje D.O., Dhruv R. Primary Care Provider NICHOLE HYDE [...] Referring Unavailable JORJE, DHRUV R Referring Unavailable Marker Cici DÍAZ Attending Provider Cici Guadalupe Attending Unavailable Marker, Cici Gama Admitting Unavailable VANCE, TALYA L Referring Unavailable DOCHEVA, NIKOLINA P Attending Unavailable VANCE, TALYA L Referring Unavailable JOREJ, DHRUV R Referring Unavailable JORJE, DHRUV R [...] R Referring Unavailable JORJE, DHRUV Attending Unavailable VANCE, TALYA Attending Unavailable JORJE, DHRUV Attending Unavailable VANCE, TALYA Attending Unavailable JORJE, DHRUV Attending Unavailable VANCE, TALYA Attending Unavailable Allergies Allergy Classification Reported Allergen(s) Allergy Type Date of Onset Reaction(s) Facility Theophylline (1 source) Theophylline Drug Allergy 1 [facility] (20 sources) SUMAtriptan; Translations: [sumatriptan] Drug Allergy 7 Pharyngeal swelling (finding), Shortness of breath [facility] (16 sources) Theophylline; Translations: [theophylline] Drug Allergy 5 Hives, Rash [facility] (1 source) Theophylline Drug Allergy 9 [facility] (17 sources) Theophyllines; Translations: [THEOPHYLLINES] Drug Intolerance 1 Hives, Narciso [facility] (1 source) SUMAtriptan; Translations: [SUMATRIPTAN SUCCINATE] Drug Allergy 7 [facility] Repository (1 source) Theophylline Drug Allergy 1 [facility] Repository Medications Current Medications Medication Drug Class(es) Dates Sig (Normalized) Sig (Original) acetaminophen 500 mg oral tablet (12 sources) take 2 tablets by mouth every six hours as needed for pain acetaminophen (TYLENOL EXTRA STRENGTH) 500 mg tablet Take 2 tablets (1,000 mg total) by mouth every 6 (six) hours as needed for pain. Active aspirin 81 mg delayed release oral tablet (20 sources) Platelet Aggregation Inhibitor, Nonsteroidal Anti-inflammatory Drug Start: 04-26-2024 take 1 tablet by mouth once aspirin 81 MG EC tablet Take 81 mg by mouth 1 (one) time 04/26/2024 Active cyclobenzaprine hydrochloride 10 mg oral tablet (2 sources) Muscle Relaxant Start: 06-29-2020 take 10 mg by mouth three times daily Cyclobenzaprine Active 10 MG PO Three times daily June 29, 2020 9:12am diclofenac sodium 75 mg delayed release oral tablet (2 sources) Nonsteroidal Anti-inflammatory Drug Start: 06-29-2020 take 75 mg by mouth twice daily Diclofenac Sodium Active 75 MG PO Twice daily June 29, 2020 9:12am ferrous sulfate (1 source) take 1 tablet by mouth once daily Ferrous Sulfate (IRON PO) Take 1 tablet by mouth 1 time a day. Active folic acid 1 mg oral tablet (20 sources) Start: 04-26-2024 End: 11-22-2024 take 1 tablet by mouth in the morning folic acid (Folvite) 1 MG tablet Take 1 mg by mouth in the morning. 04/26/2024 11/22/2024 Active lidocaine 0.05 mg/mg medicated patch (2 sources) Antiarrhythmic, Amide Local Anesthetic Start: 06-29-2020 apply 1 dose topically once daily Lidocaine Active 1 PATCH TOPICAL Daily June 29, 2020 9:12am leave on most painful area for up to 12 hrs magnesium oxide 400 mg oral tablet (6 sources) Start: 07-31-2024 End: 08-30-2024 take 1 tablet by mouth once daily magnesium oxide (Mag-Ox) 400 MG tablet Indications: Nonintractable headache, unspecified chronicity pattern, unspecified headache type Take 1 tablet (400 mg) by mouth Daily 30 tablet 6 07/31/2024 08/30/2024 Active 24 hr metFORMIN hydrochloride 500 mg extended release oral tablet (19 sources) Biguanide Start: 05-08-2024 take 1 tablet [...] Active ondansetron 4 mg disintegrating oral tablet (15 sources) Serotonin-3 Receptor Antagonist Start: 03-08-2024 End: [...] () 28 mg iron- 800 mcg tablet (12 sources) take 1 tablet by mouth in the morning PNV cmb#95-ferrous fumarate-FA () 28 mg iron- 800 mcg tablet Take 1 tablet by mouth in the morning. Active polysaccharide iron complex 391 mg oral capsule (2 sources) Start: 08-21-2024 End: 09-20-2024 take 1 capsule by mouth once daily iron polysaccharides (ProFe) 391.3 (180 Fe) MG capsule Indications: Other iron deficiency anemia Take 1 capsule (391.3 mg) by mouth Daily 30 capsule 6 08/21/2024 09/20/2024 Active Vit w/Wk-Putwsntui-IV (PNV PO) (1 source) Vit w/Yh-Llcpiesdj-ZD (PNV PO) Take by mouth. Active Vit-Fe Fumarate-FA ( Vitamins) 28-0.8 MG tablet (15 sources) Start: 03-08-2024 End: 03-08-2025 take 1 tablet by mouth once daily Vit-Fe Fumarate-FA ( Vitamins) 28-0.8 MG tablet Indications: , unspecified gestational age ([facility]) , Encounter for supervision of normal first in first trimester ([facility]) Take 1 tablet by mouth Daily 30 tablet 11 03/08/2024 03/08/2025 Active Start: 03-08-2024 End: 03-08-2025 take 1 tablet by mouth once daily Vit-Fe Fumarate-FA ( Vitamins) 28-0.8 MG tablet Indications: , unspecified gestational age , Encounter for supervision of normal first in first trimester Take 1 tablet by mouth Daily 30 tablet 11 03/08/2024 03/08/2025 Active sertraline 100 mg oral tablet (14 sources) Serotonin Reuptake Inhibitor Start: 06-08-2023 End: 03-08-2024 [...] Problem Classification Problem Date Documented Date Episodic/Chronic Deficiency and other anemia (2 sources) Iron deficiency anemia; Translations: [Other iron deficiency anemias] 08-21-2024 Episodic E Codes: Natural/environment (1 source) Other and unspecified overexertion or strenuous movements or postures, initial encounter; Translations: [OTH AND UNS OVREXRT/STRN MVMT/POS INT] Onset: 03-15-2022 Episodic Esophageal disorders (1 source) Gastroesophageal reflux disease 12-22-2015 Chronic Headache; including migraine (2 sources) Headache; Translations: [Nonintractable headache, unspecified chronicity pattern, unspecified headache type] 08-21-2024 Episodic Headache; including migraine (4 sources) Headache; including [...] trimester] Onset: 06-14-2024 Chronic Other complications of (15 sources) heart echogenicity on obstetric ultrasound scan; Translations: [Abnormal ultrasonic finding on screening of mother] Onset: 05-27-2024 05-27-2024 Episodic Other complications of (1 source) Abnormal ultrasonic finding on screening of mother; Translations: [Abnormal ultrasonic finding on screening of mother] Onset: 05-27-2024 Episodic Other ear and sense organ disorders [...] unspecified trimester] Onset: 04-26-2024 03-08-2024 Episodic Other upper respiratory disease (1 [...] of ] 06-26-2024 Episodic Residual codes; unclassified (2 sources) Gestation period, 30 weeks; Translations: [30 weeks gestation of ] 08-05-2024 Episodic Residual codes; unclassified (1 source) 24 weeks gestation of ; Translations: [24 weeks gestation of ] Onset: 07-05-2024 Episodic Residual codes; unclassified (2 sources) Gestation period, 33 weeks; Translations: [33 weeks gestation of ] 08-21-2024 Episodic Spondylosis; intervertebral disc disorders; other back problems (4 sources) Pain in thoracic spine; Translations: [Dorsalgia, unspecified] Onset: 03-13-2022 Episodic Sprains and strains (3 sources) Strain of thoracic region; Translations: [Strain of muscle and tendon of back wall of thorax, initial encounter] Onset: 03-15-2022 06-29-2020 Episodic Unclassified (1 source) None (qualifier value) [...] tic Twins] Onset: 05-31-2024 Unclassified (1 source) mono-di twins Onset: 04-26-2024 Past or Other Problems Problem Classification Problem Date Documented Da te Episodic/Chronic Conditions associated with dizziness or vertigo (1 source) Dizziness and giddiness; Translations: [DIZZINESS AND GIDDINESS] Onset: 12-01-2021 Episodic Other aftercare (1 source) Other snf (current) drug therapy; Translations: [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] Onset: 01-24-2022 Episodic Other aftercare (1 source) 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; Translations: [TIRE BUILDING SUPERVISOR USE ORAL HYPOGLYCEMIC DX] Onset: 12-22-2021 Episodic Other complications of (10 sources) 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 ; Translations: [Other mental disorders complicating , unspecified trimester] Onset: 04-26-2024 04-26-2024 Episodic Other complications of (1 source) Other mental disorders complicating , unspecified trimester; Translations: [Other mental disorders complicating , unspecified trimester] Onset: 04-26-2024 Episodic Other screening for suspected conditions (not mental disorders or infectious disease) (3 sources) Patient encounter status; Translations: [Encounter for screening for diabetes mellitus] Onset: 04-26-2024 06-26-2024 Episodic Poisoning by nonmedicinal substances (1 source) Toxic effect of carbon monoxide from other source, accidental (unintentional), initial encounter; Translations: [TOXIC EFF CO OTH SOURC ACC INIT ENC] Onset: 12-01-2021 Episodic Residual codes; unclassified (1 source) 16 weeks gestation of ; Translations: [16 weeks gestation of ] Onset: 04-26-2024 Episodic Unclassified (1 source) COUGH, UNSPECIFIED; Translations: [COUGH, UNSPECIFIED] Onset: 02-23-2022 Urinary tract infections (1 source) Urinary tract infection, site not specified; Translations: [UTI SITE NOT SPECIFIED] Onset: 08-23-2021 Episodic NEGATED: Highlighted row has been ruled out!Unclassified (15 sources) No known active problems 06-29-2023 Results Test Name Value Interpretation Reference Range Facility Urinalysis macro (dipstick) panel (U)on 08-21-2024 Bilirubin, UA Negative Negative - 4(70) +++ mg/dL [facility] Blood, UA Negative Negative - 50 Duane/mcL [facility] Healthcare Clarity, UA Clear [facility] Color, UA Yellow [facility] Glucose, UA Negative Negative - 1999(110) ++++ mg/dL [facility] Interpretation and review of laboratory results Abnormal [facility] Ketones, UA Positive Negative - 160(16) ++++ mg/dL [facility] Leukocytes, UA Moderate Negative - 500+++ Belinda/mcL [facility] Nitrite, UA Negative Negative - Positive [facility] pH, UA 7 5 - 9 [facility] Protein, UA Negative Negative - 1999(20) ++++ mg/dL [facility] Spec Grav, UA 1.02 1 - 1.03 [facility] Urobilinogen, UA 0.2 0.2 - 12 mg/dL [facility] Urinalysis macro (dipstick) panel (U)on 08-05-2024 Bilirubin, UA Negative Negative - 4(70) +++ mg/dL [facility] Blood, UA Negative Negative - 50 Duane/mcL [facility] Clarity, UA Clear [facility] Color, UA Yellow [facility] Glucose, UA Negative Negative - 1999(110) ++++ mg/dL [facility] Interpretation and review of laboratory results Abnormal [facility] Ketones, UA Negative Negative - 160(16) ++++ mg/dL [facility] Leukocytes, UA Trace Negative - 500+++ Belinda/mcL [facility] Healthcare Nitrite, UA Negative Negative - Positive [facility] pH, UA 6 5 - 9 [facility] Protein, UA Positive Negative - 1999(20) ++++ mg/dL [facility] Spec Grav, UA 1.025 1 - 1.03 [facility] Urobilinogen, UA 1.0 0.2 - 12 mg/dL [facility] Urine Cultureon 07-30-2024 Bacteria identified Cx Nom (U) >100,000 colonies/ml mixed bacterial skin contaminants 2 Days PERFORMED BY: [place] [address] OPERATOR FRANCIA GÓMEZ M.D. Normal [facility] Comment on above: Performed By: #### C UU #### [place] [id number] [facility] GLUCOSE 1 HOURon 07-16-2024 Glucose [Mass/Vol] 157 mg/dL High NINF - 13 0 mg/[facility] Interpretation and review of laboratory results Abnormal [facility] Urinalysis macro (dipstick) panel (U)on 06-26-2024 Bilirubin, UA Negative Negative - 4(70) +++ mg/dL [facility] Blood, UA Negative Negative - 50 Duane/mcL [facility] Healthcare Clarity, UA Clear [facility] Color, UA Yellow [facility] Glucose, UA Negative Negative - 1999(110) ++++ mg/dL [facility] Interpretation and review of laboratory results Abnormal [facility] Ketones, UA Negative Negative - 160(16) ++++ mg/dL [facility] Leukocytes, UA Trace Negative - 500+++ Belinda/mcL [facility] Nitrite, UA Negative Negative - Positive [facility] pH, UA 7.5 5 - 9 [facility] Protein, UA Negative Negative - 2000(20) ++++ mg/dL [facility] Spec Grav, UA 1.02 1 - 1.03 [facility] Urobilinogen, UA 0.2 0.2 - 12 mg/dL [facility] ECHOCARDIOGRAM FETALon 05-31 ECHOCARDIOGRAM [facility] [address] [place] [id number] ECHOCARDIOGRAM REPORT Name: JUAN DIEGO FULTON : 2000 ALT. ID: Age: 23 years Study Date: 05/31/2024 12:45:12 PM Patient Class: Outpatient Patient Location: [facility] Referring Physician: [facility] Diagnosing Physician: [id number] Meenu Reed MD Calciminer: Marita Ko [facility] Procedure type: Complete [id number], Complete Doppler and Spectral Doppler-[id number], Color Doppler-47569, Umbilical Doppler-[id number] and Multiple Gestation (Twins). Reason for test: [...] and Pulm (more content not included)... Normal [facility] Urinalysis macro (dipstick) panel (U)on 04-09-2024 Bilirubin, UA Negative Negative - 4(70) +++ mg/dL [facility] Blood, UA Negative Negative - 50 Duane/mcL [facility] Clarity, UA Clear [facility] re Color, UA Yellow [facility] Glucose, UA Negative Negative - 1999(110) ++++ mg/dL [facility] Interpretation and review of laboratory results Abnormal [facility] re Ketones, UA Negative Negative - 160(16) ++++ mg/dL [facility] Leukocytes, UA Positive Negative - 500+++ Belinda/mcL [facility] Comment on above: large Nitrite, UA Negative Negative - Positive [facility] pH, UA 7 5 - 9 [facility] e Protein, UA Trace Negative - 1999(20) ++++ mg/dL [facility] Spec Grav, UA 1.02 1 - 1.03 [facility] Urobilinogen, UA 0.2 0.2 - 12 mg/dL [facility] ALL CBC WITH AUTO DIFFon BASOPHILS ABSOLUTE AUTO 0 [facility] Basophils/100 WBC (Bld) 0.3 % 0.2 - 2.0 % [facility] Eosinophils/100 WBC (Bld) 0.9 % 0.9 - 7.0 % [facility] Erythrocyte distribution width (RBC) [Ratio] 14.1 % 11.0 - 15.0 % [facility] IMMATURE GRANULOCYTES ABS AUTO 0.05 High [facility] Immature granulocytes/100 WBC (Bld) 0.4 % 0.0 - 0.5 % [facility] Interpretation and review of laboratory results Abnormal [facility] re LYMPHOCYTES ABSOLUTE AUTO 2.6 [facility] Lymphocytes/100 WBC (Bld) 18.5 % Low 20.5 - 60.0 % [facility] MCH (RBC) [Entitic mass] 25.9 pg Low 26.7 - 34.0 pg [facility] MCHC (RBC) [Mass/Vol] 32.7 g/dL 29.9 - 35.2 g/dL [facility] MCV (RBC) [Entitic vol] 79.2 fL Low 81.0 - 99.0 fL [facility] MONOCYTES ABSOLUTE AUTO 0.6 [facility] Monocytes/100 WBC (Bld) 4 % 1.7 - 12.0 % [facility] NEUTROPHILS ABSOLUTE AUTO 10.7 High [facility] Neutrophils/100 WBC (Bld) 75.9 % High 43.0 - 75.0 % [facility] Platelet mean volume (Bld) [Entitic vol] 11.7 fL 9.5 - 13.5 fL [facility] TBH EO # 0.1 [facility] TB PLT 302 [facility] TB RBC 4.56 [facility] TB WBC 14.1 High [facility] CBC without diffon Rbc Mcv (Fl) By Automated Count 79.2 [facility] - Hematology and Cell countson 03-15-2024 Hematocrit (Bld) [Volume fraction] 36.1 % [facility] Hemoglobin (Bld) [Mass/Vol] 11.8 g/dL [facility] No Panel Informationon 03-15 [facility] Rubella IGG immune statuson 03-15-2024 Rubella immune IgG 0.9 [facility] Syphilis Total(Unknown Syphi lis Status)on 03-15-2024 Syphilis Non-Reactive [facility] Type and screenon 03-15-2024 Abo/Rh(D) Negative [facility] HCG ( test) Ql (U)o n 03-08-2024 Interpretation and review of laboratory results Abnormal [facility] re Preg Test, Ur Positive Negative [facility] Urinalysis macro (dipstick) panel (U)on 03-08-2024 Bilirubin, UA Negative Negative - 4(70) +++ mg/dL [facility] Blood, UA Negative Negative - 50 Duane/mcL [facility] Clarity, UA Clear [facility] re Color, UA Yellow [facility] Glucose, UA Negative Negative - 2000(110) ++++ mg/dL [facility] Interpretation and review of laboratory results Abnormal [facility] re Ketones, UA Negative Negative - 160(16) ++++ mg/dL [facility] Leukocytes, UA Moderate Negative - 500+++ Belinda/mcL [facility] Nitrite, UA Negative Negative - Positive [facility] pH, UA 7 5 - 9 [facility] Protein, UA Negative Negative - 1999(20) ++++ mg/dL [facility] Spec Grav, UA 1.015 1 - 1.03 [facility] Urobilinogen, UA 0.2 0.2 - 12 mg/dL [facility] Referrals Officeon 3 Referrals Office [id number] 0 [id number]# 1.00CD:127 Normal [facility] CULTURE URINEon 03-13-2022 CULTURE URINE Culture Observations : HEAVY GROWTH OF MIXED GENITAL TING. NO POTENTIAL PATHOGENS SEEN. Normal [facility] Comment on above: Performed By: #### C MP #### [facility] [address] [place] [address] Dr. Paz Burk ER URINE PROFILEon 3 Bilirubin Ql (U) Negative Normal NEGATIVE [facility] Comment on above: Performed By: #### PEGGY STYLES ERUR #### [facility] [address] [place] [address] Dr. Paz Burk Clarity (U) CLEAR Normal CLEAR [facility] Comment on above: Performed By: #### PEGGY STYLES ERUR #### [facility] [address] [place] [address] Dr. Paz Burk Color (U) LT. YELLOW Normal YELLOW [facility] Comment on above: Performed By: #### PEGGY STYLES ERUR #### [facility] [address] [place] [address] Dr. Paz POST A micrscopic examination will be performed if indicated. Normal [facility] Comment on above: Performed By: #### PEGGY STYLES ERUR #### [facility] [address] [place], [place] [id number] Dr. Paz Burk Glucose Ql (U) Negative Normal NEGATIVE [facility] Comment on above: Performed By: #### P REGU, UMICRO, ERUR #### [facility] [address] [address] [address] Paz Burk Hemoglobin Ql (U) Negative Normal NEGATIVE [facility] Comment on above: Performed By: #### P REGU, UMICRO, ERUR #### [facility] [address] [address] [address] aPz Burk Ketones Ql (U) Negative Normal NEGATIVE [facility] Comment on above: Performed By: #### P REGU, UMICRO, ERUR #### [facility] [address] [place] [address] Dr. Paz Burk LEUKOCYTES MODERATE Abnormal NEGATIVE [facility] Comment on above: Performed By: #### P REGU UMICRO, ERUR #### [facility] [address] [address] [address] Paz Burk Nitrite Ql (U) Negative Normal NEGATIVE [facility] Comment on above: Performed By: #### P REGU UMICRO, ERUR #### [facility] [address] [place] [address] Dr. Paz Burk pH (U) 6.0 [pH] Normal 5-9 [facility] Comment on above: Performed By: #### P REGU UMICRO, ERUR #### [facility] [address] [address] [address] Paz Burk SPEC GRAVITY 1.025 Normal 1.005-<=1.025 [facility] Comment on above: Performed By: #### P REGU UMICRO, ERUR #### [facility] [address] [place] [address] Dr. Paz Burk UA PROTEIN Negative Normal NEGATIVE/ TRACE [facility] Comment on above: Performed By: #### P REGU, UMICRO, ERUR #### [facility] [address] [address] [address] Paz Burk UR MICRO IND INDICATED Normal [facility] Comment on above: Performed By: #### P PEGGY HERNANDEZ, ERUR #### [facility] [address] [address] [address] Paz Burk Urobilinogen Qn (U) 0.2 {Ara'U}/dL Normal 0.2 - 1. 0 [facility] Comment on above: Performed By: #### P PEGGY HERNANDEZ, ERUR #### [facility] [address] [address] [address] Paz Burk URon 03-13-2022 , QUAL Negative Normal NEGATIVE [facility] Comment on above: Performed By: #### P PEGGY HERNANDEZ, ERUR #### [facility] [address] [place] [address] Dr. Paz Burk URINE MICROSCOPIC ONLYon BACTERIA MODERATE Abnormal NONE SEEN [facility] Comment on above: Performed By: #### P PEGGY HERNANDEZ, ERUR #### [facility] [address] [place] [address] Dr. Paz Burk Bacteria identified Cx Nom (U) INDICATED Normal [facility] Comment on above: Performed By: #### P PEGGY HERNANDEZ, ERUR #### [facility] [address] [place] [address] Dr. Paz Burk CAST NONE SEEN Normal NONE SEEN [facility] Comment on above: Performed By: #### P PEGGY HERNANDEZ, ERUR #### [facility] [address] [place] [address] Dr. Paz Burk Crystals LM Nom (Urine sed) NONE SEEN Normal NONE SEEN [facility] Comment on above: Performed By: #### P PEGGY HERNANDEZ, ERUR #### [facility] [address] [place] [address] Dr. Paz Burk Epithelial cells LM Ql (Urine sed) MODERATE Abnormal NONE SEEN /RARE [facility] Comment on above: Performed By: #### P BREANA HERNANDEZRO, ERUR #### [facility] [address] [place] [address] Dr. Paz Burk MUCOUS TRACE Abnormal NONE SEEN [facility] Comment on above: Performed By: #### PEGGY STYLES ERUR #### [facility] [address] [address] [address] Paz Burk RBC 0-2 Normal 0-2 [facility] Comment on above: Performed By: #### PEGGY STYLES ERUR #### [facility] [id number] Paz Burk WBC 50-75 Abnormal NONE SEEN [facility] Comment on above: Performed By: #### PEGGY STYLES ERUR #### [facility] [address] [address] [address] Paz Burk Coding Summary.on 03-04-2022 Coding Summary. [id number]+[id number] [id number] KxhZ6WuguTb XjyveOSdIZ76KQe4VYD7i XlrTYggnK4ywXVoU4h3Kx CrQB09xE69SDizECOmOmG 3LjZpbjsgbWFy J3wpRzTqxCZnKon+PHRhY mxlIHdpZHRoPScxMDAlJy UwoLsgPK6pCv4wYDSfIBX vbGxhcHNlOiBj j6hlIGLgIYqwDW4srWlvO 3ZpwOA6WTVdm9j2El11nZ I+QHGzCKL9kIydAXsiq23 8LkXvu9ejRSE9 rWRfHEknWBH0Z84jw1U1X QVcZKYkMUJ6qGA6nR9cqM rinvozR4DukUMhEfT3MAU 8pSPnnF4hcJan mnyguQ5dEme+P19CMN1GN JUYUZ8JVne3S7WxBnfwqM I+BB48LIEsRJ62aGPgaKV us4ptbVb0KrZh RBLsPEK4vEdwBBvip8KjR GAmO30uxKAfw9S0AZFrmG xbtIToBoIspYI4zK6bHCg kfuori8izwsws Drnsh6gvnd25lR49D48aQ PcnNICqQWN7UUJwUXDnsD nzux1otE1nRv8+SLtbf8e sy0hnjVd9RfSx PBGjxfUsjPwpNGW2r1YjE j20R7PxwVsyu6RdZyg3jh 87nGLye7B5dJC6REpsAOE pmM3lTBkcAoQ6 XLPaWxHdbW37xDWiOBthG a0qrBjziFxtKX2bUCDgoe nuBQAarR5xZLIxrVSwvQq gHV4fGTNmccni l808RwPsBTR4OOFmaLHpW 1LrxT1mJjWwAEKwRKObZ8 UrwQSaEVffH259OGfbIlL 6HBWvirRiZ4Ix YYHnqZfvCiW9y3D8Kt2Ej 7WutsnoTOY6VNncFAZuFw P1TfWiAoP5S4EdLoq3UQC bwJwvFY8nI8Gg PZMfrbtsgqfhoNX8WZLmP TLmuT68iFIyJLjzNq9ho0 Z7f542LPGpQXRqsV47Ne0 udDogMTBwdCBU yC8jrgjtx3anespiPpSxZ HVwYEt4QKy8BMOrdCsbEu YdRCT1KtQ7PXG6mEVvoR6 aqNlxnlnasG5l Oyc+F33bhV4gTQT4VAY7i mmuRUUlsnSoRU91VY21E5 RyPjwvdGFibGU+PGRpdiB wrMfmVV4tMaIm a2sdi7ThXZfdO7DoLCIoM OouKzg6XJKcKAY8jMB4mP 0nTLNdLRqqb0U7uBL0N5F okzHrnf9hy7hr LZCnZNajD55qtLWgj5Q3Q EQcaYK6OZMkaZcqUrGmiG 93Oyc+XHOlfXijm3PuQnw av3ocw7zogDs9 YdJdTDOwwsUnhGzvKEW1e 9VgSx65W69iORotCONsHQ DaSNFrQUShsFzgnh5pcT6 wIi8+PGNvbCB3 oMM3kE0dEAKlHqR1WOhqU 497ZiZcbVBnVmtnp2wsh7 pvaEm7GjAyOHRayfKhpEy nWJS0m7VqWs47 E31xOUkqDSHxQWOhPOGyC YCxzGhysl8emL0oOl3+PC 7lz2yufw42dU05mTI+PHR uWMM7aMhhMZxi HHPtcF0eXDhaTxI0HNItA kKrzV92rNQlWRafYj4roD xypBfkTX6zSJYbzgjpt04 6SnKzz8bhCOHe kJFyQGsxIDS5R31sc7E2I MIzGCAiLBC1hEI9lK0koB lnbjogbGVmdDsgdmVydGl bWTryTSgrI725 IHRvcDsnPlBhdGllbnQgT zPsMZx9H7PeJoa4XXLexZ ftGH8gbRCaPBuqGo7syEm cvQuzCH5vBNJl gnxba513TzMlc3omDLQvm EAgMWtdGUT3N62js7Q9MZ NjIEOwJHN3qZM3sL5fyZv nbjogbGVmdDsg awGulIbxMKqaXHpgP289B HRvcDsnPkJpcnRoIERhdG U8YN39II99yKAef4G7tBM 7B8VkLKMqlrlk vqkztAH0MUXhVKIpnS10M n7sdGstRc6oWQCnAKW4EO AmpWAeX5IeoK3kTxSzMXZ tLSQtX9OrfAOk RVwwL156LEdoSeN4LLTyu kDnA5VyUFMvcSigCvL5z2 C1Oy8RT9U2TV70PG30cYL yb4Z3lNN7X4Kd YTFwdexmikmxqYW2HAGoQ WJxgD17Nu3skHxyGe6hVG FjKCQ7GAGehSBpD2JgeD4 yOiAjMDAwMDAw E4PqsKNeHMyvX171HDmkK rS0KVItwmYxS0HkNXUwwL rmVyJ5c1P5Ya5EHBy0XH1 3VS86hFOcu1M0 nZZ0F3ZfFYJklqgvzgdpi FV3GFFqOCDmtT90Px0wzN osIa0vXFUxGWD5XYZjyPM aD2SrkA9sQjNf UUVbOUKiB9HkzPNpJTtaC 437EBjrRxQ5FDHsonVxA2 DwPINsdZtrTfD3t6V6Pk9 ZTOJaMZ14PLA7 aRF1ND10PW35Y0QfCdbww GFibGU+PHRhYmxlIHdpZH RoPScxMDAlJyBzdHlsZT0 jVv7wMVRbQUZh oXucfZSvGeBuq7ecUHFyQ GwpMK2owMwdW0UgtIE0WM Qml3n4Gb53N51kA0PzjJG +YYKqbZF1tRF4 gA3ePtPfArS8ANiwD689W tRnrKQwChyel8rym5ejvR q1DcR8FFItrcToiHvzLFL 7m9BpBf46Z21h IHdpZHRoPSIxNSUiIHZhb Yrwty2lzM6iXm5+PGNvbC U1sQE3oP4xXoWgPyC6BFm fG506GpBpfIOu Wmihl8wji1yivTe8XvWlM MWbjgPdqGamJZQ7l0VqOt 53C8PeqSahx4McAvn3rp2 0eQTut4I2wMC3 U0BdOWMazfblrJBfwBdwU P8dPMBqtisfQUWmpM9dDU JdC1e7MtWvNrB2ASyvK3N mhoE1RTWqpCTd MDirKHR6R37zv4O0QPJnT ZEoHUD3dNC9nL8yzUiavt ogbGVmdDsgdmVydGljYWw fCEhqL616QGRq rYkgJMFslP5aDPHoxMZxm BidCD9dSVFdagbsJgCRAN 9vMToKXp5HCaOsEkmjlTT +GEJbEDP6gFup EMtaXHIhbN9jYVUxI1l1U vHrXbO4CElpY7CmQTXowc ivRm22fL8yUeYiFsZ4RRk bZ6WdqjN8NONv nTXpSQjeHGP2V55sp3A9H GCuDHDyPDH2oOV2dE1zsO lnbjogbGVmdDsgdmVydGl fBNrsQBdsV892 PKDgeNoqJbO4MzZ7YxX7Z Rq1G7CtXln4HDBcjAlvBT 5aoRGwSPjvHr0hiDzjgMf bEA8nXDBzcwdm MJUipB5hGNXnlQUtsPfvH B9qLTWkbeoid647EwMnEG S6NFDspGMfK1QmhI3aIdR bHDNuKWLhK2Ix tVTqGMbdU415YZjgEgA5C BJigvRzL3OpBUKxzAkaLk R9f1B4Tt6vKdDJOWCycne vdGQ+PHRkIHN0 sUpuVRfjFOYcwG9lZYZsC 4d5TqShBjN0HRsfO6XcBQ TneyplOj57qD6mRyIbMvA 4AWovM2DszvA5 AGBbaDIlEAccSPW7N16mq 8F0CTBlJIDoHUT5mIG1kH 1hbGlnbjogbGVmdDsgdmV ydGljYWwtYWxp K872NJScmWxgEuGbxJIgJ TwvdGQ+MMXrYMR6lGrlDT ubAJJmrR6oQUXsU3s0OhO dHzM3KOgwW0Us TPLvcxleIm83gC9wAnBsY iX0JGdxG0LfykO0TBGhxB QaZYwcXGO4T74fe0Q2NRF lGXGtGBZ8iUW4 eE7qcBagvaleaZZakJhgh eJrwNauIJuyEBbuI413TZ MchCcbFb30yADzbLysayX 8Z6GeEquhpQQ+ GR88ZQKaWF44rUOckVCbe 9qouAb5YiVhWGFdWYD6oJ ctGMtfi7JsXDDaK06zkPJ ov0M4KLUocLzs dDLgVeFbqJQ7sD6iRQxub gsgj9ltbbziAznhl0vfuk 60xK02I86pGZfhDCGsCJZ zMCUiIHZhbGln uj7lrQ5pBd6+QZOnmDT2t KM0fA8lOjSfNjE2OYubR7 77LvScjLUyFffwg8jef1m ffRf9RmLbAVIo kvRhdCisWBQ4e1WrRl72N 29sIHdpZHRoPSIyMCUiIH CcbUskde4ojA1eJr1+PC9 gp8fkvs10uP47 dHI+TGCnBCC1tBezPEwmS WIroU7pFZpfIjA7MMKwNf LugS43kVUzXOrdNl1jiHq wmRdyTE8qHJUv bqdvo776ZhOld0qsFEBtc DRqJIjhYPH9J73yv1P9SO WnZPTvTVU0nZG3eQ1peHr nbjogbGVmdDsg yxWwqFraOVziBHmwC839P TAetQnsZiFeoOPxF2toyg PEKL3jUvipzCM+PHRkIHN 0eWxlPSdwYWRk tY3oNNAcD7x1RkTvAbC5W OeuF5HngyW0YDJrbJRgMF TycEREjD0ujocqi1qzkzl gIzAwMDAwMDt0 YHw9JBQdsWcnIfUjHKN0P qO5IXJ7yHDhbT8tvZdmjo nmgP9sAgd+RklOOjwvdGQ +YULxDUW5fOzp XSkfIGQldL6tVXUoB5e6O sTrBmI1UAyjF6CilkZ8AB RjtMAwCHZuhKNAkF1mxmk ov8ccciwnEhCz PIQvZDo4NMc1VTIwgJtsF dExIBN7TjR8FFX8jTNvqO 6jgBtezlppoX0bKqq+TVJ OOjwvdGQ+PHRk WWT6uAwuLTiiNBAyjL8mU VUhR8f4PiEnIzF6VOrsI1 RzhkH7QXUhoJNlCZPrnZR CgQ2emlqhg5xh eyvzJzQhDRLsJJr3OHd8F XRuaKrvDnDbTOO4XaC9ZG B4jNQwiA8uoJzwcxghsY1 wOyc+LKP6XZL8 NN21BR63Z9OrKujmuWCez +PHRhYmxlIHdpZHRoPS hvHNYqZsLgxRjpGZ8mCu1 yZGVyLWNvbGxh cHNl (more content not included)... Normal [facility] Consent for Treatmenton Consent for Treatment [id number]:127 Normal [facility] Covid-19 PCR (CVDTB)on 01-28 SARS-CoV-2 (COVID-19) RNA IGNACIO+probe Ql (Unsp spec) Not detected Normal NOT DETECTED [facility] Comment on above: Result Comment: This test is not yet approved or cleared by the [place] FDA. When there are no FDA-approved or cleared tests available, and other criteria are met, FDA can make tests available under an emergency access mechanism called an Emergency Use Authorization (EUA). The EUA for this test is supported by the [place] of Health and Human Service's (HHS's) declaration [...] SARS-CoV-2. Performed By: #### C VDTB #### [facility] [address] [place] [address] Dr. Paz Burk INFLUENZA A AND B [facility] 02-23 [facility] SEE BELOW Normal [facility] Comment on above: Result Comment: Nega tive for Flu A protein angiten. Infection due to Flu A cannot be ruled out. Flu A angiten in the sample may be below the detection limit of the test. Performed By: #### I NFLUAB #### [facility] [address] [place] [address] [facility] SEE BELOW Normal [facility] Comment on above: Result Comment: Nega tive for Flu B protein antigen. Infection due to Flu B cannot be ruled out. Flu B antigen in the sample may be below the detection limit of the test. Performed By: #### I NFLUAB #### [facility] [address] [place] [address] Dr. Paz Burk INFLUENZA A AG Negative Normal NEGATIVE SEE COMMENT [facility] Comment on above: Performed By: #### I NFLUAB #### [facility] [address] [place] [address] Dr. Paz Burk INFLUENZA B AG Negative Normal NEGATIVE SEE COMMENT [facility] Comment on above: Performed By: #### I NFLUAB #### [facility] [address] [place] [address] Dr. Paz Burk Physician Orderon 02-14-2022 Physician Order [id number] .[id number]:127 Normal [facility] BNPon 01-20-2022 Natriuretic peptide B (Bld) [Mass/Vol] 125.0 pg/mL Normal <=450.0 [facility] Comment on above: Performed By: #### C VDTBH #### [facility] [address] [place] [address] Dr. Paz Burk CBC AUTO DIFFon 01-20-2022 BASO # 0.0 103/ul Normal 0.0-0.1 [facility] Comment on above: Performed By: #### C BC #### [facility] [address] [place] [address] Dr. Paz Burk Basophils/100 WBC (Bld) 0.2 % Normal 0.2-2.0 [facility] Comment on above: Performed By: #### C BC #### [facility] [address] [place] [address] Dr. Paz Burk EO # 0.2 103/ul Normal 0.0-0.7 [facility] Comment on above: Performed By: #### C BC #### [facility] [address] [place] [address] Dr. Paz Burk Eosinophils/100 WBC (Bld) 1.2 % Normal 0.9-7.0 [facility] Comment on above: Performed By: #### C BC #### [facility] [address] [place] [address] Dr. Paz Burk Erythrocyte distribution width (RBC) [Ratio] 14.4 % Normal 11.0-15.0 [facility] Comment on above: Performed By: #### C BC #### [facility] [address] [place] [address] Dr. Paz Burk Hematocrit (Bld) [Volume fraction] 37.3 % Normal 36.0-48.0 [facility] Comment on above: Performed By: #### C BC #### [facility] [address] [place] [address] Dr. Paz Burk Hemoglobin (Bld) [Mass/Vol] 12.3 g/dL Normal 12.0-16.0 [facility] Comment on above: Performed By: #### C BC #### [facility] [address] [place] [address] Dr. Paz Burk IG # 0.07 10e3/ul Critically high 0.00-0.[address] [facility] Comment on above: Performed By: #### C BC #### [facility] [address] [place] [address] Dr. Paz Burk IG % 0.5 % Normal 0.0-0.5 [facility] Comment on above: Performed By: #### C BC #### [facility] [address] [place] [address] Dr. Paz Burk LYMPH # 3.0 103/ul Normal 1.2-3.8 [facility] Comment on above: Performed By: #### C BC #### [facility] [address] [place] [address] Dr. Paz Burk Lymphocytes/100 WBC (Bld) 21.2 % Normal 20.5-60.0 [facility] Comment on above: Performed By: #### C BC #### [facility] [address] [place] [address] Dr. Paz Burk MANUAL DIFF REQ NO Normal [facility] Comment on above: Performed By: #### C BC #### [facility] [address] [place] [address] Dr. Paz Burk MCH (RBC) [Entitic mass] 26.8 pg Normal 26.7-34.0 [facility] Comment on above: Performed By: #### C BC #### [facility] [address] [place] [address] Dr. Paz Burk MCHC (RBC) [Mass/Vol] 33.0 g/dL Normal 29.9-35.2 [facility] Comment on above: Performed By: #### C BC #### [facility] [address] [place] [address] Dr. Paz Burk MCV (RBC) [Entitic vol] 81.3 fL Normal 81.0-99.0 [facility] Comment on above: Performed By: #### C BC #### [facility] [address] [place] [address] Dr. Paz Burk MONO # 0.7 103/ul Normal 0.3-0.8 [facility] Comment on above: Performed By: #### C BC #### [facility] [address] [address] [address] Paz Burk Monocytes/100 WBC (Bld) 4.8 % Normal 1.7-12.0 [facility] Comment on above: Performed By: #### C BC #### [facility] [address] [place] [address] Dr. Paz Burk NEUT # 10.3 103/ul Critically high 1.4-6.5 [facility] Comment on above: Performed By: #### C BC #### [facility] [address] [place] [address] Dr. Paz Burk Neutrophils/100 WBC (Bld) 72.1 % Normal 43.0-75.0 [facility] Comment on above: Performed By: #### C BC #### [facility] [address] [place] [address] Dr. Paz Burk Platelet mean volume (Bld) [Entitic vol] 11.2 fL Normal 9.5-13.5 [facility] Comment on above: Performed By: #### C BC #### [facility] [address] [place] [address] Dr. Paz Burk PLT 277 103/ul Normal 150-450 [facility] Comment on above: Performed By: #### C BC #### [facility] [address] [place] [address] Dr. Paz Burk RBC 4.59 106/ul Normal 4.20-5.40 [facility] Comment on above: Performed By: #### C BC #### [facility] [address] [place] [address] Dr. Paz Burk WBC 14.3 103/ul Critically high 4.0-11.0 [facility] Comment on above: Performed By: #### C BC #### [facility] [address] [place] [address] Dr. Paz Burk CTA CHEST WO W [...] LUIS DONATO Date: 2022-01-20 03:10 Normal [facility] Covid-19 PCR (CVDTB)on 12-29 SARS-CoV-2 (COVID-19) RNA IGNACIO+probe Ql (Unsp spec) Not detected Normal NOT DETECTED [facility] Comment on above: Result Comment: When [...] for this test is supported by the [place] [employer] of Health and Human Service's declaration that [...] used). Performed By: #### C VDTBH #### [facility] [address] [place] [address] Dr. Paz Burk D-DIMERon 01-20-2022 D-DIMER 0.40 mg/L FEU Normal <=0.59 [facility] Comment on above: Performed By: #### C MP #### [facility] [address] [place] [address] Dr. Paz Burk D-DIMER COMMENTS SEE BELOW Normal [facility] Comment on above: Result Comment: Incr [...] hospitalization. Performed By: #### C MP #### [facility] [address] [place] [address] Dr. Paz Burk PREG HCG QUALon 01-20-2022 , QUAL Negative Normal NEGATIVE [facility] Comment on above: Performed By: #### C MP #### [facility] [address] [place] [address] Dr. Paz Burk PROF 14(COMP METB)on 022 Albumin [Mass/Vol] 3.3 g/dL Critically low 3.4-5.0 [facility] Comment on above: Performed By: #### C VDTBH #### [facility] [address] [place] [address] Dr. Paz Burk Albumin/Globulin [Mass ratio] 0.8 {ratio} Normal [facility] Comment on above: Performed By: #### C VDTBH #### [facility] [address] [address] [address] Paz Burk ALP [Catalytic activity/Vol] 95 U/L Normal 46-116 [facility] Comment on above: Performed By: #### C VDTBH #### [facility] [address] [address] [address] Paz Burk ALT [Catalytic activity/Vol] 15 U/L Normal 14-59 [facility] Comment on above: Performed By: #### C VDTBH #### [facility] [address] [address] [address] Paz Burk Anion gap [Moles/Vol] 10.4 mmol/L Normal [facility] Comment on above: Performed By: #### C VDTBH #### [facility] [address] [place] [address] Dr. Paz Burk AST [Catalytic activity/Vol] 10 U/L Critically low 15-37 [facility] Comment on above: Performed By: #### C VDTBH #### [facility] [address] [address] [address] Paz Burk Bilirubin [Mass/Vol] 0.1 mg/dL Critically low 0.2-1.0 [facility] Comment on above: Performed By: #### C VDTBH #### [facility] [address] [place] [address] Dr. Paz Burk Calcium [Mass/Vol] 8.8 mg/dL Normal 8.5-10.1 [facility] Comment on above: Performed By: #### C VDTBH #### [facility] [address] [address] [address] Paz Burk Chloride [Moles/Vol] 105 mmol/L Normal 98-107 [facility] Comment on above: Performed By: #### C VDTBH #### [facility] [address] [address] [address] Paz Burk CO2 [Moles/Vol] 25.3 mmol/L Normal 21.0-32.0 [facility] Comment on above: Performed By: #### C VDTBH #### [facility] [address] [place] [address] Dr. Paz Burk Creatinine [Mass/Vol] 0.83 mg/dL Normal 0.55-1.02 [facility] Comment on above: Performed By: #### C VDTBH #### [facility] [address] [address] [address] Paz Burk EGFR-AF SALVADOREAN >60 Normal >=60 [facility] Comment on above: Performed By: #### C VDTBH #### [facility] [address] [place] [address] Dr. Paz Burk EGFR-NON AF SALVADOREAN >60 Normal >=60 [facility] Comment on above: Performed By: #### C VDTBH #### [facility] [address] [place] [address] Dr. Paz Burk Globulin (S) [Mass/Vol] 4.1 g/dL Normal [facility] Comment on above: Performed By: #### C VDTBH #### [facility] [address] [place] [address] Dr. Paz Burk Glucose [Mass/Vol] 102 mg/dL Normal 74-106 [facility] Comment on above: Performed By: #### C VDTBH #### [facility] [address] [place] [address] Dr. Paz Burk Potassium [Moles/Vol] 3.7 mmol/L Normal 3.5-5.1 [facility] Comment on above: Performed By: #### C VDTBH #### [facility] [address] [place] [address] Dr. Paz Burk Protein [Mass/Vol] 7.4 g/dL Normal 6.4-8.2 [facility] Comment on above: Performed By: #### C VDTBH #### [facility] [address] [place] [address] Dr. Paz Burk Sodium [Moles/Vol] 137 mmol/L Normal 136-145 [facility] Comment on above: Performed By: #### C VDTBH #### [facility] [address] [place] [address] Dr. Paz Burk Urea nitrogen [Mass/Vol] 11.0 mg/dL Normal 7.0-18.0 [facility] Comment on above: Performed By: #### C VDTBH #### [facility] [address] [place] [address] Dr. Paz Burk Urea nitrogen/Creatinine [Mass ratio] 13.3 mg/mg Normal [facility] Comment on above: Performed By: #### C VDTBH #### [facility] [address] [place] [address] Dr. Paz Burk TROPONIN, HIGH SENSITIVITYon 01-20-2022 HSTROP 4.2 pg/mL Normal 4.0-51.3 [facility] Comment on above: Result Comment: CUT- OFF POINTS HAVE BEEN ESTABLISHED BASED ON THE FOURTH UNIVERSAL DEFINITIONS OF MYOCARDIAL INFARCTION. THE UPPER REFERENCE LIMIT (URL) OF TROPONIN, DEFINED THE 99TH PERCENTILE OF cTnI DISTRIBUTION IN A REFERENCE POPULATION, HAS BEEN CONFIRMED THE DECISION THRESHOLD FOR UT DIAGNOSIS. Performed By: #### C #### [facility] [address] [place] [address] Dr. Paz Burk HSTROP <4.0 Normal 4.0-51.3 [facility] Comment on above: Result Comment: CUT- OFF POINTS HAVE BEEN ESTABLISHED BASED ON THE FOURTH UNIVERSAL DEFINITIONS OF MYOCARDIAL INFARCTION. THE UPPER REFERENCE LIMIT (URL) OF TROPONIN, DEFINED THE 99TH PERCENTILE OF cTnI DISTRIBUTION IN A REFERENCE POPULATION, HAS BEEN CONFIRMED THE DECISION THRESHOLD FOR UT DIAGNOSIS. Performed By: #### C VDTB #### [facility] [address] [place] [address] Dr. Paz Burk XR CHEST 1 Von [...] Cornel QUIÑONES Date: 2022-01-19 23:43 Normal [facility] CBC AUTO DIFFon 12-21-2021 BASO # 0.0 103/ul Normal 0.0-0.1 [facility] Comment on above: Performed By: #### C VDTBH #### [facility] [address] [place] [address] Dr. Paz Burk Basophils/100 WBC (Bld) 0.3 % Normal 0.2-2.0 [facility] Comment on above: Performed By: #### C VDTBH #### [facility] [address] [place] [address] Dr. Paz Burk EO # 0.2 103/ul Normal 0.0-0.7 [facility] Comment on above: Performed By: #### C VDTBH #### [facility] [address] [place] [address] Dr. Paz Burk Eosinophils/100 WBC (Bld) 1.2 % Normal 0.9-7.0 [facility] Comment on above: Performed By: #### C VDTBH #### [facility] [address] [place] [address] Dr. Paz Burk Erythrocyte distribution width (RBC) [Ratio] 14.4 % Normal 11.0-15.0 [facility] Comment on above: Performed By: #### C VDTBH #### [facility] [address] [place] [address] Dr. Paz Burk Hematocrit (Bld) [Volume fraction] 37.7 % Normal 36.0-48.0 [facility] Comment on above: Performed By: #### C VDTBH #### [facility] [address] [place] [address] Dr. Paz Burk Hemoglobin (Bld) [Mass/Vol] 12.0 g/dL Normal 12.0-16.0 [facility] Comment on above: Performed By: #### C VDTBH #### [facility] [address] [place] [address] Dr. Paz Burk IG # 0.06 10e3/ul Critically high 0.00-0.[address] [facility] Comment on above: Performed By: #### C VDTBH #### [facility] [address] [place] [address] Dr. Paz Burk IG % 0.4 % Normal 0.0-0.5 [facility] Comment on above: Performed By: #### C VDTBH #### [facility] [address] [place] [address] Dr. Paz Burk LYMPH # 3.1 103/ul Normal 1.2-3.8 [facility] Comment on above: Performed By: #### C VDTBH #### [facility] [address] [place] [address] Dr. Paz Burk Lymphocytes/100 WBC (Bld) 21.8 % Normal 20.5-60.0 [facility] Comment on above: Performed By: #### C VDTBH #### [facility] [address] [place] [address] Dr. Paz Burk MANUAL DIFF REQ NO Normal [facility] Comment on above: Performed By: #### C VDTBH #### [facility] [address] [place] [address] Dr. Paz Burk MCH (RBC) [Entitic mass] 26.1 pg Critically low 26.7-34.0 [facility] Comment on above: Performed By: #### C VDTBH #### [facility] [address] [place] [address] Dr. Paz Burk MCHC (RBC) [Mass/Vol] 31.8 g/dL Normal 29.9-35.2 [facility] Comment on above: Performed By: #### C VDTBH #### [facility] [address] [place] [address] Dr. Paz Burk MCV (RBC) [Entitic vol] 82.0 fL Normal 81.0-99.0 [facility] Comment on above: Performed By: #### C VDTBH #### [facility] [address] [place] [address] Dr. Paz Burk MONO # 0.8 103/ul Normal 0.3-0.8 [facility] Comment on above: Performed By: #### C VDTBH #### [facility] [address] [place] [address] Dr. Paz Burk Monocytes/100 WBC (Bld) 5.9 % Normal 1.7-12.0 [facility] Comment on above: Performed By: #### C VDTBH #### [facility] [address] [place] [address] Dr. Paz Burk NEUT # 10.0 103/ul Critically high 1.4-6.5 [facility] Comment on above: Performed By: #### C VDTBH #### [facility] [address] [place] [address] Dr. Paz Burk Neutrophils/100 WBC (Bld) 70.4 % Normal 43.0-75.0 [facility] Comment on above: Performed By: #### C VDTBH #### [facility] [address] [place] [address] Dr. Paz Burk Platelet mean volume (Bld) [Entitic vol] 11.0 fL Normal 9.5-13.5 [facility] Comment on above: Performed By: #### C VDTBH #### [facility] [address] [place] [address] Dr. Paz Burk PLT 308 103/ul Normal 150-450 [facility] Comment on above: Performed By: #### C VDTBH #### [facility] [address] [place] [address] Dr. Paz Burk RBC 4.60 106/ul Normal 4.20-5.40 [facility] Comment on above: Performed By: #### C VDTBH #### [facility] [address] [place] [address] Dr. Paz Burk WBC 14.2 103/ul Critically high 4.0-11.0 [facility] Comment on above: Performed By: #### C VDTBH #### [facility] [address] [place] [address] Dr. Paz Burk PROF 14(COMP METB)on 12-21- 022 Albumin [Mass/Vol] 3.4 g/dL Normal 3.4-5.0 [facility] Comment on above: Performed By: #### C MP #### [facility] [address] [place] [address] Dr. Paz Burk Albumin/Globulin [Mass ratio] 0.8 {ratio} Normal [facility] Comment on above: Performed By: #### C MP #### [facility] [address] [address] [address] Paz Burk ALP [Catalytic activity/Vol] 86 U/L Normal 46-116 [facility] Comment on above: Performed By: #### C MP #### [facility] [address] [place] [address] Dr. Paz Burk ALT [Catalytic activity/Vol] 26 U/L Normal 14-59 [facility] Comment on above: Performed By: #### C MP #### [facility] [address] [place], [place] [address] Dr. Paz Burk Anion gap [Moles/Vol] 14.6 mmol/L Normal [facility] Comment on above: Performed By: #### C MP #### [facility] [address] [place] [address] Dr. Paz Burk AST [Catalytic activity/Vol] 15 U/L Normal 15-37 [facility] Comment on above: Performed By: #### C MP #### [facility] [address] [place] [address] Dr. Paz Burk Bilirubin [Mass/Vol] 0.2 mg/dL Normal 0.2-1.0 [facility] Comment on above: Performed By: #### C MP #### [facility] [address] [place] [address] Dr. Paz Burk Calcium [Mass/Vol] 8.5 mg/dL Normal 8.5-10.1 [facility] Comment on above: Performed By: #### C MP #### [facility] [address] [place] [address] Dr. Paz Burk Chloride [Moles/Vol] 104 mmol/L Normal 98-107 [facility] Comment on above: Performed By: #### C MP #### [facility] [address] [address] [address] Paz Burk CO2 [Moles/Vol] 26.5 mmol/L Normal 21.0-32.0 [facility] Comment on above: Performed By: #### C MP #### [facility] [address] [address] [address] Paz Burk Creatinine [Mass/Vol] 0.88 mg/dL Normal 0.55-1.02 [facility] Comment on above: Performed By: #### C MP #### [facility] [address] [address] [address] Paz Burk EGFR-AF SALVADOREAN >60 Normal >=60 [facility] Comment on above: Performed By: #### C MP #### [facility] [address] [place] [address] Dr. Paz Burk EGFR-NON AF SALVADOREAN >60 Normal >=60 [facility] Comment on above: Performed By: #### C MP #### [facility] [address] [place] [address] Dr. Paz Burk Globulin (S) [Mass/Vol] 4.4 g/dL Normal [facility] Comment on above: Performed By: #### C MP #### [facility] [address] [place] [address] Dr. Paz Burk Glucose [Mass/Vol] 116 mg/dL Critically high 74-106 [facility] Comment on above: Performed By: #### C MP #### [facility] [address] [address] [address] Paz Burk Potassium [Moles/Vol] 3.1 mmol/L Critically low 3.5-5.1 [facility] Comment on above: Performed By: #### C MP #### [facility] [address] [place] [address] Dr. Paz Burk Protein [Mass/Vol] 7.8 g/dL Normal 6.4-8.2 [facility] Comment on above: Performed By: #### C MP #### [facility] [address] [place] [address] Dr. Paz Burk Sodium [Moles/Vol] 142 mmol/L Normal 136-145 [facility] Comment on above: Performed By: #### C MP #### [facility] [address] [place] [address] Dr. Paz Burk Urea nitrogen [Mass/Vol] 8.0 mg/dL Normal 7.0-18.0 [facility] Comment on above: Performed By: #### C MP #### [facility] [address] [place] [address] Dr. Paz Burk Urea nitrogen/Creatinine [Mass ratio] 9.1 mg/mg Normal [facility] Comment on above: Performed By: #### C MP #### [facility] [address] [place] [address] Dr. Paz Burk PROTIMEon 12-21-2021 INR Coag (PPP) [Relative time] 1.05 {INR} Normal [facility] Comment on above: Performed By: #### P TT, PT #### [facility] [address] [place] [address] Dr. Paz Burk INR GUIDELINES SEE BELOW Normal [facility] Comment on above: Result Comment: NANO RED INR: 2.0 - 3.0 CONDITIONS NOT LISTED BELOW 2.5 - 3.5 FOR PROSTHETIC HEART VALVE REPLACEMENT 2.5 - 3.5 RECURRENT THROMBOSIS Performed By: #### P TT, PT #### [facility] [address] [place] [address] Dr. Paz Burk PT Coag (PPP) [Time] 11.3 s Normal 9.0-11.6 [facility] Comment on above: Performed By: #### P TT, PT #### [facility] [address] [place] [address] Dr. Paz Burk PTTon 12-21-2021 aPTT Coag (Bld) [Time] 32.5 s Normal 22.3-36.2 [facility] Comment on above: Performed By: #### P TT, PT #### [facility] [address] [place] [address] Dr. Paz Burk BLOOD GASES BTYon 11-29-2021 02 MODE ROOM AIR Normal [facility] Comment on above: Performed By: #### C VDTBH #### [facility] [address] [place] [address] Dr. Paz Burk ALLENS TEST Positive [facility] Comment on above: Performed By: #### C VDTBH #### [facility] [address] [place] [address] Dr. Paz Burk Base excess Calc (Bld) [Moles/Vol] 0.7 mmol/L Normal -2.0-2.0 [facility] Comment on above: Performed By: #### C VDTBH #### [facility] [address] [place] [address] Dr. Paz Burk BIPAP PRESSURE [facility] Comment on above: Performed By: #### C VDTBH #### [facility] [address] [place] [address] Dr. Paz Burk CPAP [facility] Comment on above: Performed By: #### C VDTBH #### [facility] [address] [place] [address] Dr. Paz Burk FIO2 [facility] Comment on above: Performed By: #### C VDTBH #### [facility] [address] [place] [address] Dr. Paz Burk HCO3 (Bld) [Moles/Vol] 25.3 mmol/L Normal 22.0-26.0 [facility] Comment on above: Performed By: #### C VDTBH #### [facility] [address] [place] [address] Dr. Paz Burk LPM [facility] Comment on above: Performed By: #### C VDTBH #### [facility] [address] [place] [address] Dr. Paz Burk MINUTE VOLUME Normal [facility] Comment on above: Performed By: #### C VDTBH #### [facility] [address] [place] [address] Dr. Paz Burk Oxygen (Bld) [Partial pressure] 96.1 mm[Hg] Normal 80.0-100.0 [facility] Comment on above: Performed By: #### C VDTBH #### [facility] [address] [place] [address] Dr. Paz Burk Oxygen saturation in Blood 99.0 % Normal 95.0-100.0 [facility] Comment on above: Performed By: #### C VDTBH #### [facility] [address] [place] [address] Dr. Paz Burk PCO2 35.8 mmHg Normal 35.0-45.0 [facility] Comment on above: Performed By: #### C VDTBH #### [facility] [address] [place] [address] Dr. Paz Burk [facility] Comment on above: Performed By: #### C VDTBH #### [facility] [address] [place] [address] Dr. Paz Burk pH (Bld) 7.448 [pH] Normal 7.350-7.450 [facility] Comment on above: Performed By: #### C VDTBH #### [facility] [address] [place] [address] Dr. Paz Burk [facility] Comment on above: Performed By: #### C VDTBH #### [facility] [address] [place] [address] Dr. Paz Burk PS [facility] Comment on above: Performed By: #### C VDTBH #### [facility] [address] [place] [address] Dr. Paz Burk PUNCTURE SITE RR [facility] Comment on above: Performed By: #### C VDTBH #### [facility] [address] [place] [address] Dr. Paz Burk RATE [facility] Comment on above: Performed By: #### C VDTBH #### [facility] [address] [place] [address] Dr. Paz Burk VENT MODE [facility] Comment on above: Performed By: #### C VDTBH #### [facility] [address] [place] [address] Dr. Paz Burk CA Normal [facility] Comment on above: Performed By: #### C VDTBH #### [facility] [address] [place] [address] Dr. Paz Burk CULTURE URINEon 08-21-2021 CULTURE URINE Culture Observations : MODERATE GROWTH OF MIXED GENITAL TING. NO POTENTIAL PATHOGENS SEEN. Normal [facility] Comment on above: Performed By: #### C MP #### [facility] [address] [place] [address] Dr. Paz Burk ER URINE PROFILEon Bilirubin Ql (U) Negative Normal NEGATIVE [facility] Comment on above: Performed By: #### C MP #### [facility] [address] [place] [address] Dr. Paz Burk Clarity (U) CLEAR Normal CLEAR [facility] Comment on above: Performed By: #### C MP #### [facility] [address] [place] [address] Dr. Paz Burk Color (U) LT. YELLOW Normal YELLOW [facility] Comment on above: Performed By: #### C MP #### [facility] [address] [place] [address] Dr. Paz Burk ERUBasim A micrscopic examination will be performed if indicated. Normal [facility] Comment on above: Performed By: #### C MP #### [facility] [address] [place] [address] Dr. Paz Burk Glucose Ql (U) Negative Normal NEGATIVE [facility] Comment on above: Performed By: #### C MP #### [facility] [address] [place] [address] Dr. Paz Burk Hemoglobin Ql (U) Negative Normal NEGATIVE [facility] Comment on above: Performed By: #### C MP #### [facility] [address] [place] [address] Dr. Paz Burk Ketones Ql (U) Negative Normal NEGATIVE [facility] Comment on above: Performed By: #### C MP #### [facility] [address] [address] [address] Paz Burk LEUKOCYTES LARGE Abnormal NEGATIVE [facility] Comment on above: Performed By: #### C MP #### [facility] [address] [address] [address] Paz Burk Nitrite Ql (U) Negative Normal NEGATIVE [facility] Comment on above: Performed By: #### C MP #### [facility] [address] [place] [address] Dr. Paz Burk pH (U) 7.5 [pH] Normal 5-9 [facility] Comment on above: Performed By: #### C MP #### [facility] [address] [place] [address] Dr. Paz Burk SPEC GRAVITY 1.020 Normal 1.005-<=1.025 [facility] Comment on above: Performed By: #### C MP #### [facility] [address] [place] [address] Dr. Paz Burk UA PROTEIN Negative Normal NEGATIVE/ TRACE [facility] Comment on above: Performed By: #### C MP #### [facility] [address] [place] [address] Dr. Paz Burk UR MICRO IND INDICATED Normal [facility] Comment on above: Performed By: #### C MP #### [facility] [address] [place] [address] Dr. Paz Burk Urobilinogen Qn (U) 0.2 {Ara'U}/dL Normal 0.2 - 1. 0 [facility] Comment on above: Performed By: #### C MP #### [facility] [address] [place] [address] Dr. Paz Burk URon 08-21-2021 , QUAL Negative Normal NEGATIVE [facility] Comment on above: Performed By: #### C MP #### [facility] [address] [place] [address] Dr. Paz Burk URINE MICROSCOPIC ONLYon BACTERIA SMALL Abnormal NONE SEEN [facility] Comment on above: Performed By: #### C MP #### [facility] [address] [place] [address] Dr. Paz Burk Bacteria identified Cx Nom (U) INDICATED Normal [facility] Comment on above: Performed By: #### C MP #### [facility] [address] [place] [address] Dr. Paz Burk CAST NONE SEEN Normal NONE SEEN [facility] Comment on above: Performed By: #### C MP #### [facility] [address] [place] [address] Dr. Paz Burk Crystals LM Nom (Urine sed) NONE SEEN Normal NONE SEEN [facility] Comment on above: Performed By: #### C MP #### [facility] [address] [place] [address] Dr. Paz Burk Epithelial cells LM Ql (Urine sed) FEW Abnormal NONE SEEN /RARE [facility] Comment on above: Performed By: #### C MP #### [facility] [address] [place] [address] Dr. Paz Burk MUCOUS NONE SEEN Normal NONE SEEN [facility] Comment on above: Performed By: #### C MP #### [facility] [address] [place] [address] Dr. Paz Burk RBC NONE SEEN Abnormal 0-2 [facility] Comment on above: Performed By: #### C MP #### [facility] [address] [place] [address] Dr. Paz Burk WBC 5-10 Abnormal NONE SEEN [facility] Comment on above: Performed By: #### C MP #### [facility] [address] [place] [address] Dr. Paz Burk Vital Signs Date Time Vital Sign Value Performing Clinician Facility 08-21-2024 13:30-040 Body mass index (BMI) [Ratio] 51.71 kg/m2 Talya OJEDA Work Phone: [facility] 08-21-2024 13:30-040 Body weight 145.33 kg Talya OJEDA Work Phone: [facility] 08-21-2024 13:30-0400 Diastolic blood pressure 72 mm[Hg] Talya OJEDA Work Phone: [facility] 08-21-2024 13:30-0400 Systolic blood pressure 120 mm[Hg] Talya OJEDA Work Phone: [facility] 08-05-2024 14:16-0400 Body mass index (BMI) [Ratio] 50.7 kg/m2 Dhruv Jorje DO Work Phone: [facility] 08-05-2024 14:16-0400 Body weight 142.48 kg Dhruv Jorje DO Work Phone: [facility] 08-05-2024 14:16-0400 Diastolic blood pressure 72 mm[Hg] Dhrvu Jorje DO Work Phone: [facility] 08-05-2024 14:16-0400 Systolic blood pressure 110 mm[Hg] Dhruv Jorje DO Work Phone: [facility] 07-17-2024 14:16-0400 Body height 167.6 cm Americo Reddy MD Work Phone: [facility] 07-17-2024 14:16-0400 Body mass index (BMI) [Ratio] 50.92 kg/m2 Americo Reddy MD Work Phone: [facility] 07-17-2024 14:16-0400 Body weight 143.02 kg Americo Reddy MD Work Phone: [facility] 07-17-2024 14:16-0400 Diastolic blood pressure 72 mm[Hg] Americo Reddy MD Work Phone: [facility] 07-17-2024 14:16-0400 Heart rate 92 /min Americo Reddy MD Work Phone: [facility] 07-17-2024 14:16-0400 Systolic blood pressure 108 mm[Hg] Americo Reddy MD Work Phone: [facility] 06-26-2024 15:44-0400 Body mass index (BMI) [Ratio] 49.67 kg/m2 Dhruv Jorje DO Work Phone: [facility] 06-26-2024 15:44-0400 Body weight 139.59 kg Dhruv Jorje DO Work Phone: [facility] 06-26-2024 15:44-0400 Diastolic blood pressure 72 mm[Hg] Dhruv Jorje DO Work Phone: [facility] 06-26-2024 15:44-0400 Systolic blood pressure 108 mm[Hg] Dhruv Jorje DO Work Phone: [facility] 06-21-2024 09:02-0400 Body height 167.6 cm Kvng Jordan MD Work Phone: [facility] 06-21-2024 09:02-0400 Body mass index (BMI) [Ratio] 49.67 kg/m2 Kvng Jordan MD Work Phone: [facility] 06-21-2024 09:02-0400 Body weight 139.53 kg Kvng Jordan MD Work Phone: [facility] 06-21-2024 09:02-0400 Diastolic blood pressure 75 mm[Hg] Kvng Jordan MD Work Phone: [facility] 06-21-2024 09:02-0400 Heart rate 91 /min Kvng Jordan MD Work Phone: [facility] 06-21-2024 09:02-0400 Systolic blood pressure 111 mm[Hg] Kvng Jordan MD Work Phone: [facility] 05-27-2024 16:24-0400 Diastolic blood pressure 69 mm[Hg] Kvng Jordan MD Work Phone: [facility] 05-27-2024 16:24-0400 Heart rate 86 /min Kvng Jordan MD Work Phone: [facility] 05-27-2024 16:24-0400 Systolic blood pressure 106 mm[Hg] Kvng Jordan MD Work Phone: [facility] 04-09-2024 11:34-0500 Body mass index (BMI) [Ratio] 45.52 kg/m2 Dhruv Jorje DO Work Phone: [facility] 04-09-2024 11:34-0500 Body weight 127.91 kg Dhruv Jorje DO Work Phone: [facility] 04-09-2024 11:34-0500 Diastolic blood pressure 72 mm[Hg] Dhruv Jorje DO Work Phone: [facility] 04-09-2024 11:34-0500 Systolic blood pressure 116 mm[Hg] Dhruv Jorje DO Work Phone: [facility] 03-08-2024 09:24-0500 Body mass index (BMI) [Ratio] 45.1 kg/m2 Nom Nurse [facility] 03-08-2024 09:24-0500 Body weight 126.73 kg [facility] Nurse [facility] 03-08-2024 09:24-0500 Diastolic blood pressure 70 mm[Hg] [facility] Nurse [facility] 03-08-2024 09:24-0500 Systolic blood pressure 110 mm[Hg] [facility] Nurse [facility] 06-29-2020 09:02-0400 Body height 167.64 cm Edith Ford Work Phone: [facility] 06-29-2020 09:02-0400 Body mass index (BMI) [Ratio] 48.2 kg/m2 Edith Ford Work Phone: [facility] 06-29-2020 09:02-0400 Body temperature 97.8 [degF] Edith Ford Work Phone: [facility] 06-29-2020 09:02-0400 Body weight 135.65 kg Edith Ford Work Phone: [facility] 06-29-2020 09:02-0400 Diastolic blood pressure 73 mm[Hg] Edith Ford Work Phone: [facility] 06-29-2020 09:02-0400 Heart rate 69 /min Edith Ford Work Phone: [facility] 06-29-2020 09:02-0400 Respiratory rate 16 /min Edith Ford Work Phone: [facility] 06-29-2020 09:02-0400 SaO2% (BldA) [Mass fraction] 98 % Edith Ford Work Phone: [facility] 06-29-2020 09:02-0400 Systolic blood pressure 130 mm[Hg] Edith Ford Work Phone: [facility] Encounters Encounter Date Encounter Type Care Provider Facility Start: 08-21-2024 End: 08-21-2024 Bamboo flowsheet Talya OJEDA Work Phone: [facility] Start: 08-21-2024 End: 08-21-2024 Bamboo flowsheet Talya OJEDA Work Phone: [facility] Start: 08-21-2024 End: 08-21-2024 ambulatory TALYA WOODARD Not Available Start: 08-21-2024 End: 08-21-2024 Office outpatient visit 15 minutes Talya OJEDA Work Phone: [facility] Comment on above: 33 weeks gestation o f ([facility]); Third trimester ([facility]); Monochorionic diamniotic twin , antepartum ([facility]); Nonintractable headache, unspecified chronicity pattern, unspecified headache type; Other iron deficiency anemia Start: 08-16-2024 End: 08-16-2024 Telephone encounter Americo Reddy MD Work Phone: [facility] Comment on above: Monochorionic diamni otic twin gestation in third trimester (Primary Dx) Start: 08-15-2024 End: 08-15-2024 [facility] Start: 08-05-2024 End: 08-05-2024 Bamboo flowsheet Dhruv Jorje DO Work Phone: [facility] Start: 08-05-2024 End: 08-05-2024 Bamboo flowsheet Dhruv Jorje DO Work Phone: [facility] Start: 08-05-2024 End: 08-05-2024 ambulatory DHRUV JORJE Not Available Start: 08-05-2024 End: 08-05-2024 Office outpatient visit 15 minutes Dhruv Jorje DO Work Phone: [facility] Comment on above: 30 weeks gestation o f ; Third trimester Start: 07-31-2024 End: 07-31-2024 ambulatory DHRUV R JORJE [facility] Start: 07-30-2024 End: 07-30-2024 ambulatory Cici Guadalupe [facility] Work Phone: Start: 07-30-2024 End: 07-30-2024 Departed Referred Cici Guadalupe DO Work Phone: [facility] Start: 07-18-2024 End: 07-18-2024 ambulatory TALYA WOODARD Not Available Start: 07-17-2024 End: 07-17-2024 Office outpatient visit 25 minutes Americo Reddy MD Work Phone: [facility] Comment on above: 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 (Primary Dx) Start: 07-17-2024 End: 07-17-2024 Orders Only Elizabeth Wang RN [facility] Comment on above: Monochorionic diamni otic twin gestation in third trimester (Primary Dx) Start: 07-16-2024 End: 07-16-2024 Clinisync Result Encounter Dhruv Jorje DO Work Phone: [facility] Unsolicited Start: 07-16-2024 End: 07-16-2024 Clinisync Result Encounter Dhruv Jorje DO Work Phone: [facility] Unsolicited Start: 07-05-2024 End: 07-05-2024 ambulatory [facility] Start: 06-26-2024 End: 06-26-[address] [facility] Not Available Start: 06-26-2024 End: 06-26-2024 [...] Only Lara Borrero RN [facility] Comment on above: 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 (Primary Dx); Echogenic intracardiac focus of fetus on ultrasound; 24 weeks gestation of Start: 06-21-2024 End: 06-21-2024 Telephone encounter Oneida Brunson [facility] Start: 06-21-2024 End: 06-21-2024 Office outpatient visit 25 minutes Kvng Jordan MD Work Phone: [facility] Comment on above: 24 weeks gestation o f (Primary Dx); Monochorionic diamniotic twin gestation in second trimester Start: 06-21-2024 End: 06-21-2024 ambulatory [facility] Start: 06-14-2024 End: 06-14-2024 ambulatory [facility] Start: 06-12-2024 End: 06-12-2024 Orders Only Elizabeth Wang RN [facility] Comment on above: 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 (Primary Dx); Echogenic intracardiac focus of fetus on ultrasound Start: 06-07-2024 End: 06-07-2024 ambulatory TALYA WOODARD [facility] Start: 05-31-2024 End: 05-31-2024 Office outpatient new 60 minutes Divya Limon M.D. Work Phone: [facility] Comment on above: 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 (Primary Dx) Start: 05-31-2024 End: 05-31-2024 ambulatory MEENU REED [facility] Start: 05-31-2024 End: 05-31-2024 ambulatory NICHOLE HYDE [facility] Start: 05-27-2024 End: 05-27-2024 ambulatory [facility] Start: 05-27-2024 End: 05-27-2024 Office outpatient visit 40 minutes Kvng Jordan MD Work Phone: [facility] Comment on above: 20 weeks gestation o f (Primary Dx); Monochorionic diamniotic twin gestation in second trimester; Echogenic intracardiac focus of fetus on ultrasound Start: 05-27-2024 End: 05-27-2024 ambulatory [facility] Start: 05-13-2024 End: 05-13-2024 Orders Only Elizabeth Wang RN [facility] Comment on above: 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 (Primary Dx) Start: 05-10-2024 End: 05-10-2024 ambulatory [facility] Start: 05-07-2024 End: 05-07-2024 ambulatory TALYA WOODARD Not Available Start: 04-26-2024 End: 04-26-2024 Orders Only Lara Borrero RN [facility] Comment on above: 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 (Primary Dx); 16 weeks gestation of Start: 04-11-2024 End: 04-11-2024 Chart abstracting Kvng Jordan MD Work Phone: [facility] Start: 04-10-2024 End: 04-10-2024 Telephone encounter Brittanie Chen LPN [facility] Start: 04-09-2024 End: 04-09-2024 Bamboo flowsheet [...] Facility: Start: 03-03-2022 End: 03-04-2022 ambulatory Neal Gacria Facility:[facility] Start: 03-03-2022 End: 03-03-2022 Patient encounter procedure Edith Ford [facility] Start: 02-23-2022 End: 02-24-[address] KATHLEEN MISC Facility:[facility] Start: 01-20-2022 End: 01-20-2022 ambulatory DOCTOR MISC Facility:[facility] Start: 12-21-2021 End: 12-21-2021 ambulatory DOCTOR MISC Facility:[facility] Start: 11-29-2021 End: 11-29-2021 ambulatory DOCTOR MISC Facility:[facility] Start: 08-21-2021 End: 08-21-[address] MISC Facility:[facility] Start: 06-29-2020 End: 06-29-2020 Emergency department patient visit Edith Ford Work Phone: [facility] [facility] Procedures Date Procedure Procedure Detail Performing Clinician Start: 08-21-2024 Urnls dip stick/tabl et rgnt non-auto w/o micrscp Talya OJEDA Work Phone: Start: 08-05-2024 Urnls dip stick/tabl et rgnt non-auto w/o micrscp Dhruv Jorje DO Work Phone: Start: 07-16-2024 GLUCOSE 1 HOUR Dhruv Fa [...] malign [facility]ix [facility] Start: 08-16-2025 End: 08-16-2025 US MFM with or without consult US MFM with or without consult Imaging Routine Monochorionic 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 Expected: 08/16/2025 (Approximate), Expires: 08/16/2025 [employer] Work Phone: Comment on above: Expected: 08/16/2025 (Approximate), Expires: 08/16/2025 Start: 07-17-2025 Adult BMI Screening [facility] Start: 07-17-2025 Tobacco Screening [facility] Start: 07-17-2025 End: 07-17-2025 US MFM with or without consult US MFM with or without consult Imaging Routine Monochorionic 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 Expected: 07/17/2025 (Approximate), Expires: 07/17/2025 [facility] Work Phone: Comment on above: Expected: 07/17/2025 (Approximate), Expires: 07/17/2025 Start: 06-24-2025 End: 06-24-2025 US MFM with or without consult US MFM with or without consult Imaging Routine Monochorionic diamniotic twin gestation in second trimester Echogenic intracardiac focus of fetus on ultrasound 24 weeks gestation of Expected: 06/24/2025 (Approximate), Expires: 06/24/2025 [facility] Work Phone: Comment on above: Expected: 06/24/2025 (Approximate), Expires: 06/24/2025 Start: 06-21-2025 Adult BMI Screening Adult BMI Screen ing [facility] Start: 06-21-2025 Tobacco Screening Tobacco Screening [facility] Start: 06-12-2025 End: 06-12-2025 US MFM with or without consult US MFM with or without consult Imaging Routine Monochorionic diamniotic twin gestation in second trimester Echogenic intracardiac focus of fetus on ultrasound Expected: 06/12/2025 (Approximate), Expires: 06/12/2025 [facility] Work Phone: Comment on above: Expected: 06/12/2025 (Approximate), Expires: 06/12/2025 Start: 05-27-2025 Tobacco Screening Tobacco Screening [facility] Start: 05-13-2025 End: 05-13-2025 US MFM with or without consult US MFM with or without consult Imaging Routine Monochorionic diamniotic twin gestation in second trimester Expected: 05/13/2025 (Approximate), Expires: 05/13/2025 [facility] Work Phone: Comment on above: Expected: 05/13/2025 (Approximate), Expires: 05/13/2025 Start: 04-26-2025 Adult BMI Screening Adult BMI Screen ing [facility] Start: 04-26-2025 Tobacco Screening Tobacco Screening [facility] Start: 04-26-2025 End: 04-26-2025 US MFM with or without consult US MFM with or without consult Imaging Routine Monochorionic diamniotic twin gestation in second trimester 16 weeks gestation of Expected: 04/26/2025 (Approximate), Expires: 04/26/2025 [facility] Work Phone: Comment on above: Expected: 04/26/2025 (Approximate), Expires: 04/26/2025 Start: 10-28-2024 AMB SEASONAL FLU VACCINE (Season Ended) AMB SEASONAL FLU VACCINE (Season Ended) [facility] Start: 10-28-2024 [facility] Start: 09-11-2024 End: 09-11-2024 Patient encounter procedure 09/11/2024 1:30 PM EDT Appointment [facility] [address] [place] [address] [facility] Start: 08-29-2024 End: 08-29-2024 Patient encounter procedure 08/29/2024 3:30 PM EDT Appointment [facility] [address] [place] [phone] [facility] Start: 08-28-2024 End: 08-28-2024 Patient encounter procedure 08/28/2024 1:00 PM EDT Routine [facility] [address] [place] [phone] Dhruv Recinos DO [address] [place] [address] [facility] Start: 08-19-2024 End: 08-19-2024 Patient encounter procedure 08/19/2024 2:30 PM EDT Routine [facility] [address] [place] [phone] Talya Woodard PA [address] [place] [address] [facility] Start: 08-15-2024 End: 08-15-2024 Patient encounter procedure 08/15/2024 11:30 AM EDT Appointment [facility] [address] [place] [address] [facility] Start: 07-31-2024 End: 07-31-2024 Patient encounter procedure 07/31/2024 3:30 PM EDT Appointment [facility] [address] [place] [phone] [facility] Start: 07-30-2024 Urine culture [facility] Start: 07-30-2024 Bacteria identified in Urine by Culture Urine Culture [facility] Start: 07-18-2024 End: 07-18-2024 Patient encounter procedure 07/18/2024 1:30 PM EDT Routine [facility] [address] [facility] [place] [address] Talya Woodard PA [address] [place] [address] [facility] Start: 07-17-2024 End: 07-17-2024 Patient encounter procedure [facility] Start: 07-05-2024 End: 07-05-2024 Patient encounter procedure [facility] Start: 06-27-2024 End: 06-27-2024 Patient encounter procedure 06/27/2024 1:00 PM EDT Appointment [facility] [address] [place] [phone] [facility] Start: 06-26-2024 End: 06-26-2025 CBC panel - Blood by Automated count CBC Lab Routine Diabetes mellitus screening Expected: 06/26/2024 (Approximate), Expires: 06/26/2025 [facility] Work Phone: Comment on above: Expected: 06/26/2024 (Approximate), Expires: 06/26/2025 Start: 06-26-2024 End: 06-26-2025 Measurement of glucose 1 hour after glucose challenge for glucose tolerance test Glucose tolerance, 1 hour Lab Routine Diabetes mellitus screening Expected: 06/26/2024 (Approximate), Expires: 06/26/2025 [facility] Comment on above: Expected: 06/26/2024 (Approximate), Expires: 06/26/2025 Start: 06-26-2024 End: 12-26-2024 US biophysical profile w non stress test US biophysical profile w non stress test Imaging Routine Monochorionic diamniotic twin , antepartum Expected: 06/26/2024 (Approximate), Expires: 12/26/2024 [facility] Comment on above: Expected: 06/26/2024 (Approximate), Expires: 12/26/2024 Start: 06-24-2024 End: 06-24-2024 Patient encounter procedure 06/24/2024 2:30 PM EDT Office Visit [facility] [address] [place] [address] Americo Reddy MD [address], [address] [place] [address] [facility] Start: 06-21-2024 End: 06-21-2024 Patient encounter procedure 06/21/2024 11:30 AM EDT Office Visit [facility] [address] [place] [address] Kvng Jordan MD [address], [address] [place] [address] [facility] Start: 06-21-2024 End: 06-21-2024 Patient encounter procedure 06/21/2024 8:45 AM EDT Appointment [facility] [address] [place] [phone] [facility] Start: 06-14-2024 End: 06-14-2024 Patient encounter procedure 06/14/2024 2:15 PM EDT Appointment [facility] [address] [place] [address] [facility] Start: 06-07-2024 End: 06-07-2024 Patient encounter procedure 06/07/2024 9:45 AM EDT Appointment [facility] [place] [id number] [place] [address] [facility] Start: 05-27-2024 End: 05-27-2024 Patient encounter procedure 05/27/2024 1:00 PM EDT Appointment [facility] [address] [place] [address] [facility] Start: 05-10-2024 End: 05-10-2024 Patient encounter procedure 05/10/2024 1:45 PM EDT Appointment [facility] [address] [place] [address] [facility] Start: 05-07-2024 End: 05-07-2024 Patient encounter procedure 05/07/2024 9:30 AM EDT Office Visit [facility] [address] [facility] [place] [place] [address] Talya Woodard PA [address] [place] [address] [facility] Start: 04-26-2024 End: 04-26-2024 Patient encounter procedure 04/26/2024 8:45 AM EST Office Visit [facility] [address] [place] [address] Kvng Jordan MD [address] [address] [facility] Start: 04-26-2024 End: 04-26-2024 Patient encounter procedure 04/26/2024 7:30 AM EST Appointment [facility] [address] [place] [address] [facility] Start: 04-09-2024 End: 04-09-2024 Patient encounter procedure 04/09/2024 11:20 AM EST Routine [facility] [address] [facility] [place] [phone] Dhruv Recinos, DO [address] [place] [address] Arrived [facility] Comment on above: Arrived Start: 04-08-2024 End: 04-08-2024 Patient encounter procedure 04/08/2024 9:20 AM EST Routine [facility] [address] [place] [phone] Dhruv Recinos, DO [address] [place] [address] [facility] Start: 03-08-2024 End: 03-08-2025 ABO/Rh ABO/Rh Lab Routine Missed menses , unspecified gestational age Expected: 03/08/2024 (Approximate), Expires: 03/08/2025 [facility] Comment on above: Expected: 03/08/2024 (Approximate), [...] first trimester Expected: 03/08/2024 (Approximate), Expires: 03/08/2025 [facility] Comment on above: Expected: 03/08/2024 (Approximate), Expires: 03/08/2025 Start: 10-29-2023 COVID-19 Vaccine ( season) COVID-19 Vaccine ( season) [facility] Start: 10-29-2023 Influenza vaccination Influenza Vacc ine [facility] Start: 11-27-2021 DTaP,Tdap and Td Vaccines (7 - Td or Tdap) DTaP,Tdap and Td Vaccines (7 - Td or Tdap) [facility] Start: 10-05-2019 Screening for malign ant neoplasm of cervix Pap Smear [facility] Start: 2017 DTaP,Tdap and Td Vaccines (1 - Tdap) DTaP,Tdap and Td Vaccines (1 - Tdap) [facility] Start: 2017 HEPATITIS B IMMUNIZATION (1 of 3 - 19+ 3-dose series) HEPATITIS B IMMUNIZATION (1 of 3 - 19+ 3-dose series) [facility] Start: 2016 Adult BMI Follow Up Plan Adult BMI Follow Up Plan [facility] Start: 2016 Adult BMI Screening Adult BMI Screen ing [facility] Start: 2013 HPV IMMUNIZATION (1 - 3-dose series) HPV IMMUNIZATION (1 - 3-dose series) [facility] Start: 10-05-2011 VARICELLA IMMUNIZATI ON (1 of 2 - 13+ 2-dose series) VARICELLA IMMUNIZATION (1 of 2 - 13+ 2-dose series) [facility] Start: 2010 Depression Screening Depression Scre ening [facility] Start: 2010 Tobacco Screening Tobacco Screening [facility] Start: 2005 DTAP/Tdap/Td IMMUNIZATION (1 - Tdap) DTAP/Tdap/Td IMMUNIZATION (1 - Tdap) [facility] Start: 10-05-1999 MMR IMMUNIZATION (1 of 1 - Standard series) MMR IMMUNIZATION (1 of 1 - Standard series) [facility] Bacteria identified in Urine by Culture Urine culture Microbiology Routine Missed menses Ordered: 03/08/2024 [facility] Comment on above: Ordered: 03/08/2024 CBC W Auto Different ial panel - Blood CBC and differential Lab Routine Missed menses , unspecified gestational age Ordered: 03/08/2024 [facility] Comment on above: Ordered: 03/08/2024 Hemoglobin A1c/Hemoglobin.total in Blood Hemoglobin A1c Lab Routine Missed menses , unspecified gestational age Ordered: 03/08/2024 [facility] Comment on above: Ordered: 03/08/2024 Hepatitis B [...] Ordered: 03/08/2024 Patient Education Muscle Strain (ED) [facility] Patient referral [facility] Reagin Ab [Presence] in Serum by RPR RPR Lab Routine Missed menses , unspecified gestational age Ordered: 03/08/2024 [facility] Comment on above: Ordered: 03/08/2024 Rubella antibody, IgG Rubella an tibody, IgG Lab Routine Missed menses , unspecified gestational age Ordered: 03/08/2024 [facility] Comment on above: Ordered: 03/08/2024 Immunizations Immunization Date Immunization Notes Care Provider [facility] 01-30-2012 influenza virus vaccine, unspecified formulation Lara Borrero RN [facility] Payers Date Payer Category Payer Self-pay [id number] 2024 Medicaid [employer] [id number] 2024 Medicaid HMO [id number] 2023 Private Health Insurance [facility] MEDICAID [id number] 1998 Unknown [id number] 2.0.1.858102.3.579.2. 727 1998 Unknown [id number] 2.840.1.575225.3.579.2. 593 1998 Unknown [id number] 2.16840.1.393405.3.579.2. 593 1998 Unknown [id number] 2.16840.1.999147.3.579.2. 593 1998 Unknown [id number] 2.16840.1.158915.3.579.2. 593 1998 Unknown [id number] 2.16840.1.342991.3.579.2. 593 1998 Unknown [id number] 2.16840.1.450177.3.579.2. 593 1998 Unknown [id number] 2.16.840.1.025694.3.579.2. 593 1998 Unknown [id number] 2.16.840.1.788143.3.579.2. 1281 1998 Unknown [id number] 2.16.840.1.347902.3.579.2. 1281 1998 Unknown [id number] 2.16.840.1.109985.3.579.2. 1281 1998 Unknown [id number] 2.16.840.1.165643.3.579.2. 1281 1998 Unknown [id number] 2.16.840.1.487409.3.579.2. 1281 1998 Unknown [id number] 2.16840.1.745993.3.579.2. 128 1998 Unknown [id number] 2.16840.1.001606.3.579.2. 128 1998 Unknown [id number] 2.16840.1.180641.3.579.2. 128 1998 Unknown [id number] 2.16840.1.769268.3.579.2. 1286 1998 Unknown [id number] 2.16840.1.521263.3.579.2. 128 1998 Unknown [id number] 2.16840.1.304723.3.579.2. 1286 1998 Unknown [id number] 2.16840.1.560349.3.579.2. 128 1998 Unknown [id number] 2.16840.1.086390.3.579.2. 128 1998 Unknown [id number] 2.16.840.1.041804.3.579.2. 1286 1998 Unknown [id number] 2.16.840.1.616806.3.579.2. 1286 1998 Unknown [id number] 2.16.840.1.787520.3.579.2. 1286 1998 Unknown [id number] 2.16.840.1.919227.3.579.2. 1286 1998 Unknown [id number] 2.16.840.1.481025.3.579.2. 1286 1998 Unknown [id number] 2.16.840.1.603999.3.579.2. 1286 1998 Unknown [id number] 2.16.840.1.969685.3.579.2. 128 1998 Unknown [id number] 2.16.840.1.568167.3.579.2. 9 1998 Unknown [id number] 2.16840.1.328141.3.579.2. 1258 1998 Unknown [id number] 2.16840.1.399218.3.579.2. 9 1998 Unknown [id number] 2.16840.1.279602.3.579.2. 1258 1998 Unknown [id number] 2.16.840.1.780032.3.579.2. 9 1998 Unknown [id number] 2.16840.1.000234.3.579.2. 1258 1998 Unknown [id number] 2.16840.1.814827.3.579.2. 1259 1959 Unknown [id number] 1959 Unknown [id number] Unknown [id number] 2.16840.1.331364.3.579.2. 531 Social History Date Type Detail Facility Start: 06-29-2020 End: 06-29-2023 Tobacco smoking status CAIS Never smoked tobacco (finding) [facility] Start: 2000 Sex Assigned At Female [facility] Tobacco Household tobacc o concerns: Yes. [facility] Tobacco smoking status No Smoking Status Entered [facility] Start: 03-08-2024 End: 07-17-2024 Sex Assigned At Female [facility] Start: 06-29-2023 End: 04-11-2024 Tobacco use and exposure Smokeless tobacco non-user [facility] Start: 03-08-2024 End: 08-21-2024 Alcoholic beverage intake Lifetime non-drinker (finding) [facility] Start: 03-08-2024 End: 07-17-2024 History of Social function [facility] Start: 01-17-2024 [facility] Start: 1998 Sex assigned at Not on file [facility] Tobacco smoking status NHIS Tobacco smoking consumption unknown [facility] Childcare Unknown [facility] Start: 09-30-2014 End: 08-01-2024 Sex Female (finding) [facility] Start: 05-31-2024 Alcoholic beverage intake Ex-drinker (finding) [facility] NEGATED: Highlighted rowStart: IANF History of tobacco use Passive smoker [facility] Goals Date Patient Goal Desired Activity /State Clinical Notes 06-29-2020 to 08-21-2024 Jeannette Kowalski LPN - 08/21/2024 1:00 PM EDTTelephone Encounter - Gillian Beatty - 08/16/2024 1:54 PM EDTTelephone Encounter - Gillian Beatty - 08/16/2024 1:54 PM Kyra Wang RN - 07/17/2024 2:00 PM EDT Note Date & Type Note Facility 08-21-2024 History of Presen t illness Narrative Reason [...] nursing note reviewed. Exam conducted with a review engineer present. Vitals: Estimated body mass index is 51.71 kg/m as calculated from the following: Height as of 06/02/22: 5' 6 . Weight as of this encounter: 320 lb 6.4 oz. BP: 120/72 Patient's last menstrual period was 01/03/2024. ASSESSMENT & PLAN ICD-10-CM 1. 33 weeks gestation of ([facility]) Z3A.33 POCT urinalysis dipstick manually resulted 2. Third trimester ([facility]) Z34.93 POCT urinalysis dipstick manually resulted 3. Monochorionic diamniotic twin , antepartum ([facility]) O30.039 POCT urinalysis dipstick manually resulted 4. [...] today and she is to have this at 34 weeks. Patient is to return to office in 1 week for routine OB appointment. Documented by Jeannette Kowalski LPN on behalf of: Tracie Kaufman NP documented in this encounter [facility] 08-16-2024 Miscellaneous Notes Kaiawhina Kohanga Reo jose providing 7/3 & 09/11 appt details and requested a return call if she had any issues or concerns. documented in this encounter [facility] 08-16-2024 Telephone encounter Note Kaiawhina Kohanga Reo jose providing 7/3 & 716 appt details and requested a return call if she had any issues or concerns. [facility] 08-05-2024 History of Presen t illness Narrative Reason for Appointment: Patient ID: Juan Diego Fulton is a 23 y.o. female who presents for Routine Visit Patient presents today for Return OB appointment. MEDICATIONS Current Outpatient Medications Medication Instructions aspirin 81 mg, Once folic acid (FOLVITE) 1 mg, Daily RT magnesium oxide (MAG-OX) 400 mg, Oral, Daily [...] nursing note reviewed. Exam conducted with a review engineer present. Vitals: Estimated body mass index is 50.7 kg/m as calculated from the following: Height as of 06/02/22: 5' 6 . Weight as of this encounter: 314 lb 1.9 oz. BP: 110/72 Patient's last menstrual period was 01/03/2024. ASSESSMENT & PLAN ICD-10-CM 1. 30 weeks gestation of Z3A.30 POCT urinalysis dipstick manually resulted 2. Third trimester Z34.93 POCT urinalysis dipstick manually resulted Return OB: Patient presents today for a routine obstetrics appointment. Patient is currently 30w5d . Patient states she is doing well but has complaints of being tired due to current . Patient has verbalizes frequent movement. labor precautions was discussed/given and patient was instructed to perform kick counts three times a day. Orders Placed This Encounter Procedures POCT urinalysis dipstick manually resulted Follow Up: Patient is to return to office in 2 week for routine OB appointment. Continues with [facility] for Ultrasound and twin gestation and doing well. Continues with biweekly NST and weekly BPP. Will plan for [place]estone at 34 weeks. Documented by Tracie Kaufman NP on behalf of: Dhruv Recinos DO documented in this encounter [facility] 07-17-2024 History of Presen t illness Narrative [...] out. HISTORY OF PRESENT ILLNESS: Juan Diego Fluton is a pleasant 23 y.o. G 1 P0 at 28w0d due on Estimated Date of Delivery: 10/09/24 . has been complicated with Spontaneously conceiving monochorionic diamniotic twin gestation with normal interval growth both twins. No evidence of growth restriction. No evidence of uppm-mf-syuy transfusion syndrome. Currently the patient has no [...] Medical History: Diagnosis Date BMI 45.0-49.9, adult ([facility]) Irregular periods Oligomenorrhea PCOS (polycystic ovarian syndrome) [...] place and person. RECOMMENDATION: 1. Continue serial jfvh-un-ircn transfusion surveillance at [facility] office. 2. Initiate testing form once [...] AMERICO REDDY MD documented in this encounter [facility] 07-17-2024 Miscellaneous Notes Addended by: AMERICO REDDY on: 07/25/2024 10:00 AM Modules accepted: Level of Service documented in this encounter [facility] 07-17-2024 Note Addended by: AMERICO PEREIRA on: 07/25/2024 10:00 AM Modules accepted: Level of Service [facility] 06-26-2024 History of Presen t illness Narrative [...] nursing note reviewed. Exam conducted with a review engineer present. Vitals: Estimated body mass index is [...] Dhruv Recinos DO documented in this encounter [facility] 06-21-2024 Miscellaneous Notes I called pt and left a message about the u;/s Talya Quiroga scheduled her for documented in this encounter [facility] 06-21-2024 Telephone encounter Note I called pt and left a message about the u;/s Talya F scheduled her for [facility] 06-21-2024 History of Presen t illness Narrative [...] DO regarding Chief Complaint Patient presents with [place]-Di Twins Baby A EIF I have reviewed [...] % on ultrasound today. No evidence of okhn-ts-jnle transfusion or TAPS. The patient has a visit at the therapy Center at [facility] as on prior imaging there was a significant discrepancy in the estimated weight. When she was evaluated at [place] there was no evidence of selective growth [...] Medical History: Diagnosis Date BMI 45.0-49.9, adult ([facility]) Irregular periods Oligomenorrhea PCOS (polycystic ovarian syndrome) [...] Interpersonal Safety: Low Risk (05/31/2024) Received from [facility] Intimate Partner Violence Safe in relationship? [...] for diabetes She desires to deliver at [facility] Recommendations: Daily low dose (81mg) aspirin for preeclampsia prevention To return in 2 weeks for Dopplers for re-evaluation of the twins TTTS and TAPS protocol scheduled at [facility] Follow-up survey/echo scheduled growth every 4 weeks at [facility] monitoring with weekly NST and DVP at 32 weeks until delivery done through primary OB office Delivery [id number] gestation. If the remains stable consider delivery [...] of delivery: The patient desires delivery at [facility]. Please initiate transfer of care Continue to recommend marijuana cessation The patient has a scheduled follow-up up with MFM Plan reviewed with patient. She vocalized understanding all questions answered. The patient is to continue with routine care in your office Thank you for allowing me to participate in her care. Please contact me if you have any concerns. Kvng Jordan MD, FACOG (she/hers) [facility] [address] [place] [address] This document was created with [employer] technology. Though I make every effort to review the dictation as it is transcribed, on occasion the spoken word can be misinterpreted by the technology leading to inappropriate words, phrases, or sentences. This note is addressed to the requesting provider as a consultation for clinical guidance. Specific medical abbreviations are occasionally used and those are generally approved by the [place]?Board of?Obstetrics and?Gynecology?as well as?Gilbert sesay abbreviations. The above plan of care was based solely on the diagnoses for which a consultation was requested. ?More frequent testing may be indicated based on her other medical/obstetrical conditions. The management of other or medical conditions is beyond the scope of requested consultation and will continue to be followed by the primary molding engineer or primary care provider. Note to patient: [...] of the practitioner. documented in this encounter [facility] 05-27-2024 History of Presen t illness Narrative Headache/epigastric pain/blurry vision/swelling? No Cramping/contractions? No Abnormal vaginal discharge? No Spotting or vaginal bleeding? No Loss or gush of fluid like your water may have broken? No Recent ER visits or hospitalizations? No Any concerns that you would like me to mention to the provider today? No [facility] Note Reason For Office: [...] low risk female x2 Carrier screen: neg /4 Denies smoking, alcohol or other substance use [...] Medical History: Diagnosis Date BMI 45.0-49.9, adult ([facility]) Irregular periods Oligomenorrhea PCOS (polycystic ovarian syndrome) [...] for nausea or vomiting., Disp: , [facility]-FA () 28 mg iron- 800 mcg [...] recommend 2nd opinion at the [facility]. The is at risk of adverse [...] of delivery for uncomplicated monochorionic diamniotic twins [id number] I reviewed with them that monochorionic diamniotic twin gestations with isolated growth restriction if they remain clinically stable delivery is [id number]. 3. Echogenic intracardiac focus of fetus on [...] and growth ultrasounds Referral to [facility] initiated Timing of delivery to be readdressed pending clinical course. Further recommendations to be made at follow-up visit Location of delivery would recommend tertiary care center the patient desires delivery at [facility]. Please initiate transfer of care to for the [facility] The patient has a scheduled follow-up with [facility] Plan reviewed with patient. She vocalized understanding all questions answered. The patient is to continue with routine care in your office Thank you for allowing me to participate in her care. Please contact me if you have any concerns. Kvng Jordan MD, FACOG (she/hers) Maternal- Medicine [facility] [address] [place] [address] This document was created with [employer] technology. Though I make every effort to review the dictation as it is transcribed, on occasion the spoken word can be misinterpreted by the technology leading to inappropriate words, phrases, or sentences. This note is addressed to the requesting provider as a consultation for clinical guidance. Specific medical abbreviations are occasionally used and those are generally approved by the [place]?Board of?Obstetrics and?Gynecology?as well as?Gilbert sesay abbreviations. The above plan of care was based solely on the diagnoses for which a consultation was requested. ?More frequent testing may be indicated based on her other medical/obstetrical conditions. The management of other or medical conditions is beyond the scope of requested consultation and will continue to be followed by the primary molding engineer or primary care provider. Note to patient: [...] of the practitioner. [facility] Miscellaneous Notes Please call us back we are holding an kade for you. documented in this encounter [facility]24 Telephone encounter Note Please call us back we are holding an kade for you. [facility] History of Presen t illness Narrative [...] twin gestation and will be referred to [facility] Orders Placed This Encounter Procedures POCT urinalysis dipstick manually resulted Follow Up: Patient is to return to office in 4 week for routine OB appointment. Documented by LYNETTE Moreno documented in this encounter [facility] 03-08-2024 History of Presen t illness [...] or undercooked meat, and stay away from [facility]. Patient has also been advised to not change litter boxes and eat 6 small meals a day. Patient has been consulted regarding the do's and don'ts of . Patient was given labs and all questions and concerns were answered. Patient was given script for vitamins and Zofran. Patient given Estelline to do at 10 weeks. Follow Up: [...] in this encounter [facility] 03-03-2022 Note Echocardiology Procedure Exam Date/Time Accession # Ordering Echo Transthoracic 03/03/2022 09:37 EST [id number] Edith Ford MD Complete CPT code [id number] Reason for Exam (Echo Transthoracic Complete) Cardiomegaly I51.[address] [address] Adult Echocardiogram Report Name: JUAN DIEGO FULTON Study Date: 03/03/2022 09:03 AM BP: 111/78 mmHg Patient Location: [facility] HR: 68 : 2000 Gender: Female Height: 66 in Age: 21 yrs Ethnicity: [facility] Weight: 298 lb Reason For Study: Cardiomegaly I51.7 BSA: 2.4 m2 History: No cardiac history per patient Ordering Physician: Edith Ford Referring Physician: Edith Ford Performed By: Tara Lilly [facility] Interpretation Summary No comparison study is available. [...] Garcia MD Transcribed by: MATHEW Technologist: KEN [facility] 06-29-2020 Hospital Discharg e instructions Additional [...] palpitations fever vomiting or any other concerns [facility] Evaluation + Plan note No data available for this section [facility] Evaluation note No Assessments Infor mation Available [facility] Evaluation note Diagnosis Missed menses , unspecified gestational age Encounter for supervision of normal first in first trimester Nausea Nausea alone [facility] Diagnosis Second trimester state, incidental 13 weeks gestation of documented [facility]* Diagnosis Monochorionic diamniotic twin gestation in second trimester- Primary 16 weeks gestation of [facility] Diagnosis Monochorionic diamniotic twin gestation in second trimester- Primary documented in this encounter [facility]* Diagnosis 20 weeks gestation of - Primary Monochorionic diamniotic twin gestation in second trimester Echogenic intracardiac focus of fetus on ultrasound documented in this encounter [facility]* Diagnosis Monochorionic diamniotic twin gestation in second trimester- Primary documented in this encounter [facility] Diagnosis Monochorionic diamniotic twin gestation in second trimester- Primary Echogenic intracardiac focus of fetus on ultrasound documented in this encounter [facility]* Diagnosis 24 weeks gestation of - Primary Monochorionic diamniotic twin gestation in second trimester documented in this encounter [facility]* Diagnosis Monochorionic diamniotic twin gestation in second trimester- Primary Echogenic intracardiac focus of fetus on ultrasound 24 weeks gestation of documented in this encounter [facility]* Diagnosis Second trimester state, incidental 25 weeks gestation of Diabetes mellitus screening Screening for diabetes mellitus Monochorionic diamniotic twin , antepartum [facility] Diagnosis Monochorionic 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- Primary documented in this encounter [facility]* Diagnosis Monochorionic diamniotic twin gestation in second trimester- Primary documented in this encounter [facility] noteNo assessment information available [facility] Work Phone: Evaluation note* Diagnosis 30 weeks gestation of Third trimester state, incidental [facility] Diagnosis 33 weeks gestation of ([facility]HS-HCC) Third trimester (HHS-HCC) state, incidental Monochorionic diamniotic twin , antepartum (HHS-HCC) Nonintractable headache, unspecified chronicity pattern, unspecified headache type Other iron deficiency anemia documented in this encounter [facility] Narrative* Ayah Benton M.D. - 05/31/2024 3:30 PM EDT [facility] Conference Members present: Ayah Benton MD; Mary Guajardo, MARTINN, RNII, RNC-ARMANDO; HPI: Juan Diego Fulton is a 23 y.o. who is presently 21w2d gestation (Estimated Date of Delivery: 10/09/24 by 7 week US) who was referred by Kvng Jordan MD for evaluation and management of Vivek twins with concern for TTTS and/or sFGR. Juan Diego Fulton was referred to the [facility] on 05/28/[address] Kvng Jordan at [facility]. Significant findings include ultrasound completed on 05/27/24 [...] TESTING: NIPT (03/15/24) - Low Risk Female Estelline Carrier Screen (03/15/24): Negative GTT, 1h: Not [...] ACOG form Imaging: Echocardiogram on 05/31/2024 at [facility]: FETUS A SUMMARY: 1. Normal cardiac [...] rate and rhythm. Ultrasound on 05/31/2024 at [facility]: Impression ========= Monochorionic diamniotic twin gestation [...] 34-37 weeks at present. Referral back to [facility] if concern for TTTS, TAPS, sFGR. We offer laser until 27 weeks gestation. Family decision: Agrees with above recommendations and will go forward I spent 60 minutes in the encounter. Ayah Benton M.D. Maternal- Medicine Attending [facility] Discharge instructions No data available for this section [facility] on filedocumented in this encounter [facility] on filedocumented in this encounter [facility]ructionsNot on filedocumented in this encounter [facility] System[facility]ructionsNot on filedocumented in this encounter [facility] SystemInstructionsNot on filedocumented in this encounter [facility]* Attachments The following attachments cannot be sent through Care Everywhere. * Preeclampsia (Serbian) documented in [facility] SystemInstructionsNot on file documented in [facility] System[facility] note No data available for this section [facility] Advance Directives No Advanced Directives Records Found Advance Directive Response Recorded Date/ Time Advance Directives No June 29, 2020 9:26am Chief Complaint and Reason for Visit Chief Complaint middle back pain Chief Complaint Admit Date Unknown July 30, 2024 9:39p m Summary Purpose Family History No Family History Records FoundNo Family History Records FoundNo Family History Records FoundNo Family History Records FoundNo Family History Records FoundNo Family History Records FoundNo Family History Records Found Additional Source Comments Patient Care team informatio n (unrecognized section and content) Lottery Office Manager Relationship Specialty Start Date End Date Edith Ford MD [address] [place] [address] PCP - General Family Medicine 09/01/22 Lottery Office Manager Relationship Specialty Start Date End Date Edith Ford MD [address] [place] [id number] PCP - General Family Medicine 09/01/22 Lottery Office Manager Relationship Specialty Start Date End Date Edith Ford MD [address] [place] [address] PCP - General Family Medicine 09/01/22 Lottery Office Manager Relationship Specialty Start Date End Date Edith Ford MD [address] [place] [id number] PCP - General Family Medicine 09/01/22 Lottery Office Manager Relationship Specialty Start Date End Date Dhruv Recinos D.O. [address] [place] [address] [place] [address] PCP - General External Obstetrics & Gynecology 05/28/24 Lottery Office Manager Relationship Specialty Start Date End Date Edith Ford MD [address] [place] [place] [address] PCP - General Family Medicine 09/01/22 Lottery Office Manager Relationship Specialty Start Date End Date Edith Ford MD [address] [place] [address] PCP - General Family Medicine 09/01/22 Lottery Office Manager Relationship Specialty Start Date End Date Edith Ford MD [address] [place] [address] PCP - General Family Medicine 09/01/22 Team Status: Inactive Member Role Status Dates Cici Guadalupe DO Attending Provider Active Start: July 30, 2024 End: July 30, 2024 Lottery Office Manager Relationship Specialty Start Date End Date Edith Ford MD [address] [place] [address] PCP - General Family Medicine 09/01/22 Lottery Office Manager Relationship Specialty Start Date End Date Edith Ford MD [address] [place] [address] PCP - General Family Medicine 09/01/22 Lottery Office Manager Relationship Specialty Start Date End Date Edith Ford MD [address] [place] [address] PCP - General Family Medicine 09/01/22 INFORMATION SOURCE (unrecogn ized section and content) DATE CREATED AUTHOR 03/29/2022 [facility] DATE CREATED AUTHOR AUTHOR'S ORGANIZ ATION 05/13/2022 [facility] DATE CREATED AUTHOR AUTHOR'S ORGANIZ ATION 06/15/2024 [facility] DATE CREATED AUTHOR AUTHOR'S ORGANIZ ATION 06/16/2024 [facility] DATE CREATED AUTHOR AUTHOR'S ORGANIZ ATION 08/03/2024 [facility] DATE CREATED AUTHOR AUTHOR'S ORGANIZ ATION 08/18/2024 [facility] DATE CREATED AUTHOR AUTHOR'S ORGANIZ ATION 08/22/2024 [facility] EPIC Reason for Visit (unrecogniz ed section and content) Reason Comments Amenorrhea Reason Comments Routine Visit Reason Comments growth discrepancy Reason Comments Monochorionic Twins Reason Comments [place]-Di Twins Baby A EIF Reason Comments Monochorionic Diamniotic Twin Goals (unrecognized section and content) Goals may be documented in a n alternate section FOR RECORDS PERTAINING TO PATIENTS WHO ARE [...] BE BASED ON THE PRIMARY CLINICAL RECORDS. [facility] provides no warranty or guarantee of the accuracy or completeness of information in this document.
[2024-08-28 08:40] LABS: Glucose 1 Hour 174 mg/dL (<180)
[2024-08-28 09:29] LABS: Glucose 2 Hour 173 mg/dL (<155)
[2024-08-28 10:52] LABS: Glucose 3 Hour 114 mg/dL (<140)
== END 2024-08-28 07:04 | disposition home or self-care (01) ==
LOC: LAB 07:03
PROVIDERS: PCP Family Medicine; Visit Provider Obstetrics & Gynecology
DX: R73.09 Other abnormal glucose (principal)
CPT/HCPCS: 36415; 82951; 82952

== ENCOUNTER 2024-08-28 10:28 | Outpatient (OUT) | payer OTHER, SELFPAY ==
[2024-08-28] MEDS: BETAMETHASONE ACE/BETAMETHASONE SOD PHOS 30 MG/5 ML 12 MG IM (10:59)
--- NOTE | 2024-08-28 11:02 | PC.NURSE ---
1045 arrives for first dose of Celestone for lung immaturity. Currently 34 weeks with twin gestation. Both babies active today and pt denies concerns. States feels well. VSS 97.3- 88-18 BP 112/77. 1059 Celestone 12 mg IM left hip given. Tolerated well. Scheduled [facility] for next dose of celestone. 1110 leaves ambulatory for home. Condition stable.
== END 2024-08-28 11:10 ==
PROVIDERS: PCP Family Medicine; Visit Provider Nurse Practitioner Family
DX: O30.039 Twin pregnancy, monochorionic/diamniotic, unspecified trimester (principal); O99.019 Anemia complicating pregnancy, unspecified trimester; D50.9 Iron deficiency anemia, unspecified; O99.810 Abnormal glucose complicating pregnancy; Z3A.00 Weeks of gestation of pregnancy not specified
CPT/HCPCS: 36415; 82951; 82952; 96372; J0702

== ENCOUNTER 2024-08-29 07:49 | Outpatient (OUT) | payer OTHER, SELFPAY ==
--- OUTSIDE RECORDS SUMMARY | 2020-08-25 12:00 | XMS_ITS | Continuity of Care Document ---
Author Organization [facility] Address [address] [place] [address] Phone Care Team Providers Care Principal Consulting Engineer Name Role Phone Woodrow LANEJessica Unavailable Unavailable [...] Four Films Nutrit Couns For Control Of [place] Dis Mar Oral Hygiene Instruction Prophylaxis Adult Topical Jorge Of Flouride Varnish 018 Oral Hygiene Instruction Moderate Risk Intraoral-complete Series (bw) 18 Comp Oral Eval New/estab Patient 2017 Oral Hygiene Instruction Advance Directives Directive Yes / No Effective Date File Name No Information Encounters Encounter Description Practice Location Reason(s) For Visit Diagnoses Date Provider Providers Copied on Encounter [facility], [address] [facility], [place], [place], [id number] , [place] tel:[phone] Dental Clinic prophy (chief complaint) Encounter for screening for dental disorders 1 Woodrow DMD Jessica. [address] [place], [place], [id number], [place]. tel:[phone] [facility], [address] [place], [place], [id number] , [place] tel: [phone] Dental Clinic filling (chief complaint) Encounter for screening for dental disorders 9 [facility]. [address] [place], [place], [id number], [place]. tel:[phone] [facility], [address] [place] [address], [id number] , [place] tel: [phone] Dental Clinic Prophy (chief complaint) Encounter for screening for dental disorders 9 [facility]. [address] [place] [address], [id number], [place]. tel:[phone] [facility], [address] [place] [address], [id number] , [place] tel: [phone] Dental Clinic Encounter for screening for dental disorders 8 Eitan DMD Mehul. [address] [place], [address], [place]. tel:[phone] [facility], [address] [place] [address], [id number] , [place] tel: [phone] Dental Clinic dental new (chief complaint) Encounter for screening for dental disorders 8 Ama DMD Deepasulochana. [address] [place], [address], [place]. tel:[phone] Family History Family Member Type Diagnosis Age At Onset Father Problem (finding) Alive and well Mother Problem (finding) Alive and well Payers Payer name Insurance type Covered constitution party ID Blane hess(s) D Medicaid [facility] [id number] Social History Type Description Quantity Date Captured [...]
--- OUTSIDE RECORDS SUMMARY | 2023-07-17 05:40 | XMS_ITS ---
Author Organization [facility] Address [address] [place] [address] Care Team Providers Care Rolls Mill Operator Name Role Phone Siddharth Weinstein Primary Care Provider [phone] REASON FOR VISIT NEW PATIENT DENTAL EXAM Encounters Encounter Location Date Provider Diagnosis [address] [place] [address] 07/17/2023 Siddharth Weinstein Plan Of Treatment No Information Progress Notes * JUAN DIEGO ROMERODOB: 9 (23 yo F)Acc No.[id number]:07/17/2023 Patient: Paola JUAN DIEGO LE Provider: Gage Weinstein DDS :2000 A ge:22 Y S ex:Female Date:07/17/2023 Address:[address] [place], [place] [id number] Subjective: * Chief Complaints: * 1 . NEW PATIENT DENTAL EXAM. * Medical History: Objective: * Vitals: Assessment: Plan: * Treatment: * Images: * Electronic signature of Chris Weinstein DDS on 08/29/2024 at 07:52 AM EDT Sign off status: Pending * Provider: Gage Weinstein DDS Date: 07/17/2023 Generated for Roma taylor/Ashwin/eTransmitting on: 08/29/2024 07:52 AM EDT
--- OUTSIDE RECORDS SUMMARY | 2024-03-07 06:40 | XMS_ITS ---
Author Organization [facility] Address [address] [place] [address] Care Team Providers Care Parts Department Manager Name Role Phone Siddharth Weinstein Primary Care Provider REASON FOR VISIT NEW PT EXAM (EXTREMEM TOOTH PAIN) Encounters Encounter Location Date Provider Diagnosis [address] [place] [address] 03/07/2024 Siddharth Weinstein Plan Of Treatment No Information Progress Notes * JUAN DIEGO ROMERODOB: [birth year] (23 yo F)Acc No.[id number]:03/07/2024 Patient: Paola JUAN DIEGO LE Provider: Gage Weinstein DDS :2000 A ge:23 Y S ex:Female Date:03/07/2024 Address:[address] [place], [place] [id number] Subjective: * Chief Complaints: * 1 . NEW PT EXAM (EXTREMEM TOOTH PAIN). * Medical History: Objective: * Vitals: Assessment: Plan: * Treatment: * Images: * Electronic signature of Chris Weinstein DDS on 08/29/2024 at 07:53 AM EDT Sign off status: Pending * Provider: Gage Weinstein DDS Date: 03/07/2024 Generated for Roma taylor/Ashwin/eTransmitting on: 0 08/29/2024 07:53 AM EDT
--- OUTSIDE RECORDS SUMMARY | 2024-08-15 11:30 | XMS_ITS | Encounter Summary ---
Author Organization [facility] tem Address [facility] [id number] [address] [place] [address] Care Team Providers Care Pyridine Recovery Operator Name Role Phone Unavailable Primary Care Provider Unavailabl e Reason for Referral * Diagnostic Imaging (Routine) - Pending Review Specialty Diagnoses / Procedures Referred By Contac Referred To Contact Maternal and Medicine Diagnoses Monochorionic 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 Procedures US [facility] with or without consult Aiden Reddy MD [address], [address] [place] [address] Phone: tel: fax: Maternal- Medicine at [place] [address] [place] [address] Phone: tel: fax: Referral ID Status Reason Start Date Expiration Date V isits Requested Visits Authorized [id number] Pending Review 07/17/2024 07/17/2025 1 1 Reason for Visit * Diagnostic Imaging (Routine) - Pending Review Specialty Diagnoses / Procedures Referred By [facility] Referred To Contact Maternal and Medicine Diagnoses Monochorionic 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 Procedures [facility] with or without consult Aiden Reddy MD [address], [address] [place] [address] Phone: tel: fax: Maternal- Medicine at [facility] [address] [place] [address] Phone: tel: fax: Referral ID Status Reason Start Date Expiration Date V isits Requested Visits Authorized [id number] Pending Review 07/17/2024 07/17/2025 1 1 Encounter Details Date Type Department Care Team (Latest Contact Info) Description 08/15/2024 11:30 AM EDT - 08/15/2024 11:59 PM EDT Hospital Encounter [facility] US Imaging [address] [place] [address] Monochorionic 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 Discharge Disposition: Home Social History Tobacco Use Types Packs/Day Years Used Date Smoking Tobacco: Never Smokeless Tobacco: Never Alcohol Use Standard Drinks/Week Comments Never 0 (1 standard drink = 0.6 oz pur e alcohol) Childcare Answer Date Recorded Childcare Unknown 08/07/2018 Employment Answer Date Recorded Employment Unknown 08/07/2018 Hunger Screening Answer Date Recorded Within the past 12 months we worried whether our food would run out before we got money to buy more. Never True 07/17/2024 Within the past 12 months th e food we bought just didn't last and we didn't have money to get more. Never True 07/17/2024 Estimated Date of Delivery Comme nts Yes 10/09/2024 Based on last me nstrual period of 01/03/2024 Sex and Gender Information Value Date Recorded Sex Assigned at Not on file Legal Sex Female 6:42 PM EDT Gender Identity Not on file Sexual Orientation Not on file documented as of this encounter Medications at Time of Discharge acetaminophen (TYLENOL EXTRA STRENGTH) 500 mg tablet Take 2 tablets (1,000 mg total) by mouth every 6 (six) hours as needed for pain. aspirin 81 mgIndications:16 weeks gestation of ,Monochorio getachew diamniotic twin gestation in second trimester Take 1 tablet once a day until delivery and then stop 30 tablet 6 04/26/2024 folic acid (FOLVITE) 1 mg tabletIndications:16 weeks gestation of ,Monochorio getachew diamniotic twin gestation in second trimester Take 1 tablet (1 mg total) by mouth in the morning for 210 days. 30 tablet 6 04/26/2024 metFORMIN XR (GLUCOPHAGE XR) 500 mg 24 hr tablet Take 1 tablet (500 mg total) by mouth daily with breakfast. ondansetron ODT (ZOFRAN ODT) 4 mg disintegrating tablet Dissolve 1 tablet (4 mg total) on tongue every 8 (eight) hours as needed for nausea or vomiting. PNV cmb#95-ferrous fumarate-FA () 28 mg iron- 800 mcg tablet Take 1 tablet by mouth in the morning. sertraline (ZOLOFT) 100 mg tablet Take 1 tablet (100 mg total) by mouth in the morning. documented as of this encounter Plan of Treatment Upcoming Encounters Date Type Department Care Team (Late st Contact Info) Description 08/29/2024 3:30 PM EDT Appointment [facility] US Imaging [address] [place] [address] 09/11/2024 1:30 PM EDT Appointment [facility] US Imaging [address] [place] [address] documented as of this encounter Procedures Procedure Name Priority Date/Time Associated Diagnosis Comments US [facility] OB FOLLOW-UP, 1 FETUS Routine 08/15/2024 12:55 PM EDT Monochorionic 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 documented in this encounter Results * [facility] OB FOLLOW-UP, 1 FETUS (08/15/2024 12:55 PM EDT) Anatomical Region Laterality Modality OB-ASSEMBLER CORNCOB PIPES Ultrasound 08/15/2024 12:0 6 PM EDT Narrative 08/15/2024 12:57 PM EDT NAME: HEATHER ADAMSON : 2000 SEX: F Accession Number: [id number] ORDERING PHYSICIAN: AIDEN REDDY REFERRING PHYSICIAN: DEMETRIUS BRYSON Coding ----- --------- Procedures 20742: Follow-up Ultrasound, per fetus. 2 Indication ----- --------- Obesity in , [place]-Di twin , Supervision of high risk - A - EIF. History ----- --------- OB History 1. Para 0 [id number] Current ----- --------- Cell free DNA LOW RISK analysis Maternal Assessment ----- --------- Physical Exam Height 168 cm, 5 ft 6 in. Weight 143 kg, 315 lb. Initial weight 139 kg, 307 lb. BMI 50.84 kg/m . Initial BMI 49.55 kg/m . Weight gain 4 kg, 8 lb Method ----- --------- Transabdominal ultrasound examination. View: Suboptimal view: limited by maternal body habitus. ----- --------- Twin . Number of fetuses: 2. Monochorionic-diamniotic Dating ----- --------- LMP on: 01/03/2024 Cycle: regular cycle GA by LMP 32 w + 1 d DORON by LMP: 10/09/2024 Previous Ultrasound on: 02/23/2024 Type of prior assessment: GA GA at prior assessment date 7 w + 0 d GA by previous U/S 31 w + 6 d DORON by previous Ultrasound: 10/11/2024 Ultrasound examination on: 08/15/2024 GA by U/S based upon: AC, BPD, Femur, HC GA by U/S 32 w + 2 d DORON by U/S: 10/08/2024 GA by U/S based upon (Fetus 2): AC, BPD, Femur, HC GA by U/S (Fetus 2) 32 w + 3 d DORON by U/S (Fetus 2): 10/07/2024 Assigned: based on the LMP, selected on 04/26/2024 Assigned GA 32 w + 1 d Assigned DORON: 10/09/2024 Fetus A: General Evaluation ----- --------- Cardiac activity Present. FHR 145 bpm. movements: visualized. Presentation: Breech, Lower Right. Placenta: Placental site: posterior, away from cervical os Umbilical cord: Cord vessels: 3 vessel cord. Insertion site: documented previously Amniotic fluid: Amount of AF: normal amount. MVP 4.5 cm Fetus B: General Evaluation ----- --------- Cardiac activity Present. FHR 153 bpm. movements: visualized. Presentation: Transverse Head Maternal Left, Upper Left. Placenta: Placental site: posterior, away from cervical os Umbilical cord: Cord vessels: 3 vessel cord. Insertion site: documented previously Amniotic fluid: Amount of AF: normal amount. MVP 6.3 cm Fetus A: Biometry ----- --------- Standard BPD 82.7 mm 33w 2d 74% Hadlock OFD 101.4 mm 32w 6d 68% Umberto HC 292.4 mm 32w 2d 17% Hadlock Cerebellum tr 41.5 mm 32w 6d 53% Hill AC 291.7 mm 33w 1d 78% Hadlock Femur 58.4 mm 30w 4d 6% Hadlock Humerus 52.2 mm 30w 3d 11% Umberto HC / AC 1.00 EFW 1,947 g 45% Hadlock EFW discordance 8.8 % EFW (lb) 4 lb EFW (oz) 5 oz EFW by: Hadlock ([id number]) Extended Tibia 52.1 mm 30w 6d 24% Umberto Paving Supervisor 3.2 mm CM 4.0 mm <1% Nicolaides Head / Face / Neck Cephalic index 0.82 69% Nicolaides Extremities / Bony Struc FL / BPD 0.71 FL / HC 0.20 FL / AC 0.20 Other Structures FHR 145 bpm Fetus B: Biometry ----- --------- Standard BPD 77.9 mm 31w 2d 17% Hadlock OFD 99.9 mm 32w 2d 55% Umberto HC 282.9 mm 31w 0d 3% Hadlock Cerebellum tr 39.4 mm 31w 6d 23% Hill AC 293.6 mm 33w 2d 82% Hadlock Femur 66.6 mm 34w 2d 88% Hadlock Humerus 54.0 mm 31w 3d 32% Umberto HC / AC 0.96 EFW 2,134 g 72% Hadlock EFW discordance 8.8 % EFW (lb) 4 lb EFW (oz) 11 oz EFW by: Blakelock ([id number]) Extended Tibia 53.7 mm 31w 5d 44% Umberto Paving Supervisor 3.9 mm CM 5.6 mm 10% Nicolaides Head / Face / Neck Cephalic index 0.78 30% Nicolaides Extremities / Bony Struc FL / BPD 0.85 FL / HC 0.24 FL / AC 0.23 Other Structures FHR 153 bpm Fetus A: Anatomy ----- --------- The following structures appear normal: Head/Neck: Cranium. Lateral ventricles. Cavum septi pellucidi. Cerebellum. Cisterna magna. Heart/Thorax: Diaphragm. Abdomen: Stomach. Kidneys. Bladder. The following structures were documented previously: Heart / Thorax 4-chamber view. Fetus B: Anatomy ----- --------- The following structures appear normal: Head / Neck Cranium. Lateral ventricles. Cavum septi pellucidi. Cerebellum. Cisterna magna. Abdomen Stomach. Kidneys. Bladder. The following structures were documented previously: Heart / Thorax 4-chamber view. Diaphragm. Maternal Structures ----- --------- Uterus Visualized Cervix Suboptimal Right Ovary Not visualized Left Ovary Not visualized Cul de Sac Suboptimal Impression ----- --------- Monochorionic-diamniotic twin consistent with 32w 1d with an DORON of 10/09/2024. Twin A is Lower Right, Breech. Intrauterine with appropriate interval growth. EFW measures at the 45%, AC measures at the 78%. Amniotic fluid MVP measures 4.5 cm. Previously identified echogenic intracardiac focus was not well evaluated on today's exam due to position. Twin B is Upper Left, Transverse Head Maternal Left. Intrauterine with appropriate interval growth. EFW measures at the 72%, AC measures at the 82%. Amniotic fluid MVP measures 6.3 cm. Discordance is 8.8%. Recommendations ----- --------- TTTS surveillance follow up every 2 weeks with growth of each fetus every 4 weeks. Subsequent follow up or other follow up as clinically determined by primary OB provider unless otherwise specified by [facility]. Results forwarded to ordering provider so they can follow up with the patient as necessary. Procedure Note Aiden Reddy MD - 08/15/2024 NAME: HEATHER ADAMSON : 2000 SEX: F Accession Number: [id number] ORDERING PHYSICIAN: AIDEN REDDY REFERRING PHYSICIAN: DEMETRIUS BRYSON Coding ----- --------- Procedures [id number]: Follow-up Ultrasound, per fetus. 2 Indication ----- --------- Obesity in , [place]-Di twin , Supervision of high riskpregnancy - A - EIF. History ----- --------- OB History 1. Para 0 [id number] Current ----- --------- Cell free DNA LOW RISK analysis Maternal Assessment ----- --------- Physical Exam Height 168 cm, 5 ft 6 in. Weight 143 kg, 315 lb. Initialweight 139 kg, 307 lb. BMI 50.84 kg/m . Initial BMI 49.55 kg/m . Weight gain 4 kg, 8 lb Method ----- --------- Transabdominal ultrasound examination. View: Suboptimal view: limited bymaternal body habitus. ----- --------- Twin . Number of fetuses: 2. Monochorionic-diamniotic Dating ----- --------- LMP on: 01/03/2024 Cycle: regular cycle GA by LMP 32 w + 1 d DORON by LMP: 10/09/2024 Previous Ultrasound on: 02/23/2024 Type of prior assessment: GA GA at prior assessment date 7 w + 0 d GA by previous U/S 31 w + 6 d DORON by previous Ultrasound: 10/11/2024 Ultrasound examination on: 08/15/2024 GA by U/S based upon: AC, BPD, Femur, HC GA by U/S 32 w + 2 d DORON by U/S: 10/08/2024 GA by U/S based upon (Fetus 2): AC, BPD, Femur, HC GA by U/S (Fetus 2) 32 w + 3 d DORON by U/S (Fetus 2): 10/07/2024 Assigned: based on the LMP, selected on 04/26/2024 Assigned GA 32 w + 1 d Assigned DORON: 10/09/2024 Fetus A: General Evaluation ----- --------- Cardiac activity Present. FHR 145 bpm. movements: visualized.Presentation: Breech, Lower Right. Placenta: Placental site: posterior, away from cervical os Umbilical cord: Cord vessels: 3 vessel cord. Insertion site: documentedpreviously Amniotic fluid: Amount of AF: normal amount. MVP 4.5 cm Fetus B: General Evaluation ----- --------- Cardiac activity Present. FHR 153 bpm. movements: visualized.Presentation: Transverse Head Maternal Left, Upper Left. Placenta: Placental site: posterior, away from cervical os Umbilical cord: Cord vessels: 3 vessel cord. Insertion site: documentedpreviously Amniotic fluid: Amount of AF: normal amount. MVP 6.3 cm Fetus A: Biometry ----- --------- Standard BPD 82.7 mm 33w 2d 74% Hadlock OFD 101.4 mm 32w 6d 68% Umberto HC 292.4 mm 32w 2d 17% Hadlock Cerebellum tr 41.5 mm 32w 6d 53% Hill AC 291.7 mm 33w 1d 78% Hadlock Femur 58.4 mm 30w 4d 6% Hadlock Humerus 52.2 mm 30w 3d 11% Umberto HC / AC 1.00 EFW 1,947 g 45% Hadlock EFW discordance 8.8 % EFW (lb) 4 lb EFW (oz) 5 oz EFW by: Hadlock ([id number]) Extended Tibia 52.1 mm 30w 6d 24% Umberto Paving Supervisor 3.2 mm CM 4.0 mm <1% Nicolaides Head / Face / Neck Cephalic index 0.82 69% Nicolaides Extremities / Bony Struc FL / BPD 0.71 FL / HC 0.20 FL / AC 0.20 Other Structures FHR 145 bpm Fetus B: Biometry ----- --------- Standard BPD 77.9 mm 31w 2d 17% Hadlock OFD 99.9 mm 32w 2d 55% Umberto HC 282.9 mm 31w 0d 3% Hadlock Cerebellum tr 39.4 mm 31w 6d 23% Hill AC 293.6 mm 33w 2d 82% Hadlock Femur 66.6 mm 34w 2d 88% Hadlock Humerus 54.0 mm 31w 3d 32% Umberto HC / AC 0.96 EFW 2,134 g 72% Hadlock EFW discordance 8.8 % EFW (lb) 4 lb EFW (oz) 11 oz EFW by: Hadlock ([id number]) Extended Tibia 53.7 mm 31w 5d 44% Umberto Paving Supervisor 3.9 mm CM 5.6 mm 10% Nicolaides Head / Face / Neck Cephalic index 0.78 30% Nicolaides Extremities / Bony Struc FL / BPD 0.85 FL / HC 0.24 FL / AC 0.23 Other Structures FHR 153 bpm Fetus A: Anatomy ----- --------- The following structures appear normal: Head/Neck: Cranium. Lateral ventricles. Cavum septi pellucidi. Cerebellum.Cisterna magna. Heart/Thorax: Diaphragm. Abdomen: Stomach. Kidneys. Bladder. The following structures were documented previously: Heart / Thorax 4-chamber view. Fetus B: Anatomy ----- --------- The following structures appear normal: Head / Neck Cranium. Lateral ventricles. Cavum septi pellucidi.Cerebellum. Cisterna magna. Abdomen Stomach. Kidneys. Bladder. The following structures were documented previously: Heart / Thorax 4-chamber view. Diaphragm. Maternal Structures ----- --------- Uterus Visualized Cervix Suboptimal Right Ovary Not visualized Left Ovary Not visualized Cul de Sac Suboptimal Impression ----- --------- Monochorionic-diamniotic twin consistent with 32w 1d with an EDDof 10/09/2024. Twin A is Lower Right, Breech. Intrauterine with appropriate interval growth. EFW measures atthe 45%, AC measures at the 78%. Amniotic fluid MVP measures 4.5 cm. Previously identified echogenic intracardiac focus was not well evaluatedon today's exam due to position. Twin B is Upper Left, Transverse Head Maternal Left. Intrauterine with appropriate interval growth. EFW measures atthe 72%, AC measures at the 82%. Amniotic fluid MVP measures 6.3 cm. Discordance is 8.8%. Recommendations ----- --------- TTTS surveillance follow up every 2 weeks with growth of each fetus every4 weeks. Subsequent follow up or other follow up as clinically determined byprimary OB provider unless otherwise specified by M. Results forwarded to ordering provider so they can follow up with thepatient as necessary. Aiden Reddy MD [facility] ORDERABLES Final Resul t documented in this encounter Visit Diagnoses Diagnosis Monochorionic 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 documented in this encounter
--- OUTSIDE RECORDS SUMMARY | 2024-08-21 13:00 | XMS_ITS | Encounter Summary ---
Author Organization [facility] Address [address] [place] [address] Care Team Providers Care Tank Builder Supervisor Name Role Phone Edith Ford MD Primary Care Provider +1- [phone] Reason for Visit * Reason Comments Routine Visit Encounter Details Date Type Department Care Team ([facility] Contact Info) Description 08/21/2024 1:00 PM EDT Routine [facility] OB [address] [facility] [place] [address] Talya Reyna PA [address] [place] [address] 33 weeks gestation of ([facility] Third trimester [facility]); Monochorionic diamniotic twin , antepartum ([facility]); Nonintractable headache, unspecified chronicity pattern, unspecified headache [...] this encounter Progress Notes * Jeannette Kowalski, MRI SUPERVISOR - 08/21/2024 1:00 PM EDT Reason for [...] nursing note reviewed. Exam conducted with a network announcer present. Vitals: Estimated body mass index is 51.71 kg/m² as calculated from the following: Height as of 06/02/22: 5' 6 . Weight as of this encounter: 320 lb 6.4 oz. BP: 120/72 Patient's last menstrual period was 01/03/2024. ASSESSMENT & PLAN ICD-10-CM 1. 33 weeks gestation of ([facility]) Z3A.33 POCT urinalysis dipstick manually resulted 2. Third trimester ([facility]) Z34.93 POCT urinalysis dipstick manually resulted 3. Monochorionic diamniotic twin , antepartum ([facility]) O30.039 POCT urinalysis dipstick manually resulted 4. [...] Care Team (Late st Contact Info) Description 09/12/2024 10:50 AM EDT Routine [facility] [address] [facility] [place] [address] Dhruv Recinos, DO [address] [place] [address] [place] [address] documented as of this encounter Procedures Procedure Name Priority Date/Time Associated Diagnosis Comments POCT URINALYSIS DIPSTICK Routine 08/21/2024 1:39 PM EDT 33 weeks gestation of ([facility]) Third trimester ([facility]) Monochorionic diamniotic twin , antepartum ([facility]) documented in this encounter Results * (ABNORMAL) [...] Visit Diagnoses Diagnosis 33 weeks gestation of ([facility]) Third trimester ([facility]) state, incidental Monochorionic diamniotic twin , antepartum ([facility]) Nonintractable headache, unspecified chronicity pattern, unspecified headache type Other iron deficiency anemia documented in this encounter Care Teams Tank Builder Supervisor Relationship Specialty Start Date End Date Edith Ford MD [address] [place] [address] PCP - General Family Medicine 09/01/22 documented as of this encounter
--- OUTSIDE RECORDS SUMMARY | 2024-08-28 13:00 | XMS_ITS | Encounter Summary ---
Author Organization [facility] Address [address] [place] [address] Care Team Providers Care Court Messenger Name Role Phone Edith Ford MD Primary Care Provider +1- [phone] Reason for Visit * Reason Comments Routine Visit Encounter Details Date Type Department Care Team ([facility] Contact Info) Description 08/28/2024 1:00 PM EDT Routine [facility] OB [address] [place] [address] Dhruv Recinos, DO [address] [place] [address] Third trimester ([facility]); 34 weeks gestation of ([facility]) Social History Tobacco Use Types Packs/Day Years [...] Sign Reading Time Taken Comments Blood Pressure 122/70 08/28/2024 1:16 PM EDT Pulse - - Temperature - - Respiratory Rate - - Oxygen Saturation - - Inhaled Oxygen Concentration - - Weight 149 kg (327 lb 6.4 oz) 08/28/2024 1:16 PM EDT Height - - Body Mass Index 52.84 06/02/2022 12:00 PM EDT documented in this encounter Plan of Treatment Upcoming Encounters Date Type Department Care Team (Late st Contact Info) Description 09/12/2024 10:50 AM EDT Routine [facility] [address] [place] [address] Dhruv Recinos, DO [address] [place] [address] documented as of this encounter Visit Diagnoses Diagnosis Third trimester [facility]) state, incidental 34 weeks gestation of (HHS-HCC) documented in this encounter Care Teams Court Messenger Relationship Specialty Start Date End Date Edith Ford MD [address] [place] [address] PCP - General Family Medicine 09/01/22 documented as of this encounter
--- OUTSIDE RECORDS SUMMARY | 2024-08-29 07:52 | XMS_ITS | Encounter Summary ---
Author Organization [facility] Address [address] [place] [address] Care Team Providers Care Barrel Polisher Name Role Phone Edith Ford MD Primary Care Provider +1- [phone] Encounter Details Date Type Department Care Team (Late Contact Info) Description 03/18/2024 Abstract [facility] [address] [facility] [place] [address] Dhruv Recinos [facility] [address] [place], [facility] Social History Tobacco Use Types Packs/Day [...] Department Care Team (Late Contact Info) Description 09/12/2024 10:50 AM EDT Routine [facility] [address] [place] [address] Dhruv Recinos, [facility] [address] [place], [place] [id number] documented as of this encounter Visit Diagnoses Not on filedocumented in this encounter Care Teams Barrel Polisher Relationship Specialty Start Date End Date Edith Ford MD [address] [place] [address] PCP - General Family Medicine 09/01/22 documented as of this encounter
--- OUTSIDE RECORDS SUMMARY | 2024-08-29 07:52 | XMS_ITS | Encounter Summary ---
Author Organization [facility] Address [address] [place] [address] Care Team Providers Care Emergency Technician Name Role Phone Edith Ford MD Primary Care Provider +1- [phone] Encounter Details Date Type Department Care Team (Late Contact Info) Description 03/22/2024 Abstract [facility] [address] [facility] [place] [address] Dhruv Recinos [facility] [address] [place], [facility] Social History Tobacco Use Types Packs/Day Years [...] Description 09/12/2024 10:50 AM EDT Routine [facility] [address] [place] [address] Dhruv Recinos, [facility] [address] [place], [place] [id number] documented as of this encounter Visit Diagnoses Not on filedocumented in this encounter Care Teams Emergency Technician Relationship Specialty Start Date End Date Edith Ford MD [address] [place] [address] PCP - General Family Medicine 09/01/22 documented as of this encounter
--- OUTSIDE RECORDS SUMMARY | 2024-08-29 07:52 | XMS_ITS | Encounter Summary ---
Author Organization [facility] Address [address] [place] [address] Care Team Providers Care City Wellness Coordinator Name Role Phone Edith Ford MD Primary Care Provider +1- [phone] Encounter Details Date Type Department Care Team (Late Contact Info) Description 04/03/2024 Abstract [facility] [address] [facility] [place] [address] [place] [address] [address] [place], [facility] Social History Tobacco Use Types Packs/Day Years [...] Description 09/12/2024 10:50 AM EDT Routine [facility] [address] [place] [address] Dhruv Recinos, [facility] [address] [place], [place] [id number] documented as of this encounter Visit Diagnoses Not on filedocumented in this encounter Care Teams City Wellness Coordinator Relationship Specialty Start Date End Date Edith Ford MD [address] [place] [address] PCP - General Family Medicine 09/01/22 documented as of this encounter
--- OUTSIDE RECORDS SUMMARY | 2024-08-29 07:52 | XMS_ITS | Encounter Summary ---
Author Organization [facility] Address [address] [place] [address] Care Team Providers Care Molten Iron Pourer Name Role Phone Edith Ford MD Primary Care Provider +1- [phone] Encounter Details Date Type Department Care Team (Late st Contact Info) Description 08/28/2024 Abstract [facility] OB [address] [place] [address] Talya Reyna PA [address] [place] [address] Dr [place], [facility] Social History Tobacco Use [...] Description 09/12/2024 10:50 AM EDT Routine [facility] OB [address] [place], [place] [address] [place] [address] Dhruv Recinos DO [address] [place] [address] [address] [place], [place] [id number] documented as of this encounter Visit Diagnoses Not on filedocumented in this encounter Care Teams Molten Iron Pourer Relationship Specialty Start Date End Date Edith Ford MD [address] [place] [address] PCP - General Family Medicine 09/01/22 documented as of this encounter
--- OUTSIDE RECORDS SUMMARY | 2024-08-29 07:52 | XMS_ITS | Encounter Summary ---
Author Organization [facility] Address [address] [place] [address] Care Team Providers Care Qa Auditor Name Role Phone Edith Ford MD Primary Care Provider +1- [phone] Encounter Details Date Type Department Care Team (Late Contact Info) Description 08/28/2024 Abstract [facility] [address] [facility] [place] [address] Dhruv Recinos [facility] [address] [place], [facility]11 Social History Tobacco Use Types Packs/Day Years [...] Description 09/12/2024 10:50 AM EDT Routine [facility] [address] [place] [address] Dhruv Recinos, [facility] [place], [place] [id number] documented as of this encounter Visit Diagnoses Not on filedocumented in this encounter Care Teams Qa Auditor Relationship Specialty Start Date End Date Edith Ford MD [address] [place] [address] PCP - General Family Medicine 09/01/22 documented as of this encounter
--- OUTSIDE RECORDS SUMMARY | 2024-08-29 07:52 | XMS_ITS | Encounter Summary ---
Author Organization [facility] Address [address] [place] [address] Care Team Providers Care Refinery Operator Crude Unit Name Role Phone Edith Ford MD Primary Care Provider +1- [phone] Encounter Details Date Type Department Care Team (Late st Contact Info) Description 07/17/2024 Results Follow-Up [facility] [address] [place] [address] Kim Estes LPN [address] [place] [id number] Social History Tobacco Use Types Packs/Day Years [...] AM EDT Routine [facility] [address] [place] [address] Dhruv Recinos DO [address] [facility] [place] [address] documented as of this encounter Visit Diagnoses Not on filedocumented in this encounter Care Teams Refinery Operator Crude Unit Relationship Specialty Start Date End Date Edith Ford MD [address] [place] [address] PCP - General Family Medicine 09/01/22 documented as of this encounter
--- OUTSIDE RECORDS SUMMARY | 2024-08-29 07:52 | XMS_ITS | Encounter Summary ---
Author Organization [facility] Address [address] [place] [address] Care Team Providers Care Customs And Border Protection Officer Name Role Phone Edith Ford MD Primary Care Provider +1- [phone] Encounter Details Date Type Department Care Team (Late st Contact Info) Description 04/26/2024 External Result Encounter [facility] OB [address] [place] [address] Demetrius Recinos, DO [address] [facility] [address] [place], [facility]11 Social History Tobacco Use Types Packs/Day [...] AM EDT Routine [facility] [address] [facility] [place] [address] Demetrius Recinos, DO [address] [facility] [place] [address] documented as of this encounter Procedures Procedure Name Priority Date/Time Associated Diagnosis Comments RECURRENT VAGINITIS (HTRX) Routine 05/07/2024 10:57 AM EDT OB 14+ WEEKS ANATOMY SCAN 04/26/2024 1:20 PM EST documented in this encounter Results * (ABNORMAL) RECURRENT VAGINITIS (HTRX) (05/07/2024 10:57 AM EDT) Pathologist [facility] ATOPOBIUM VAGINAE 17.085(A) 19.961 - 24.689 ppm 05/08/2024 7:28 AM EDT [facility] ATOPOBIUM VAGINAE Detected(A) 19.961 - 24.689 ppm 05/08/2024 7:28 AM EDT [facility] BVAB 2,3 (BACTERIAL VAGINOSIS ASSOCIATED BACTERIA 2, 3); MOBILUNCUS SPP 12.518(A) 19.961 - 24.689 ppm 05/08/2024 7:28 AM EDT [facility] BVAB 2,3 (BACTERIAL VAGINOSIS ASSOCIATED BACTERIA 2, 3); MOBILUNCUS SPP Detected(A) 19.961 - 24.689 ppm 05/08/2024 7:28 AM EDT [facility] ALYSON ALBICANS, PARAPSILOSIS, TROPICALIS 27.203(A) 19.961 - 30.770 ppm 05/08/2024 7:28 AM EDT [facility] ALYSON ALBICANS, PARAPSILOSIS, TROPICALIS Detected(A) 19.961 - 30.770 ppm 05/08/2024 7:28 AM EDT [facility] ALYSON GLABRATA 0.000 23.000 - 32.138 ppm 05/08/2024 7:28 AM EDT [facility] [place] ALYSON GLABRATA Not Detected 23.000 - 32.138 ppm 05/08/2024 7:28 AM EDT [facility] [place] ALYSON KRUSEI 0.000 23.000 - 32.271 ppm 05/08/2024 7:28 AM EDT [facility] [place] ALYSON KRUSEI Not Detected 23.000 - 32.271 ppm 05/08/2024 7:28 AM EDT [facility] [place] CHLAMYDIA TRACHOMATIS 0.000 23.000 - 31.467 ppm 05/08/2024 7:28 AM EDT [facility] [place] CHLAMYDIA TRACHOMATIS Not Detected 23.000 - 31.467 ppm 05/08/2024 7:28 AM EDT [facility] [place] GARDNERELLA VAGINALIS 21.006(A) 19.961 - 24.689 ppm 05/08/2024 7:28 AM EDT [facility] [place] GARDNERELLA VAGINALIS Detected(A) 19.961 - 24.689 ppm 05/08/2024 7:28 AM EDT [facility] [place] MEGASPHAERA (TYPES 1, 2) 14.174(A) 19.961 - 24.689 ppm 05/08/2024 7:28 AM EDT [facility] [place] MEGASPHAERA (TYPES 1, 2) Detected(A) 19.961 - 24.689 ppm 05/08/2024 7:28 AM EDT [facility] [place] NEISSERIA GONORRHOEAE 0.000 23.000 - 32.117 ppm 05/08/2024 7:28 AM EDT [facility] [place] NEISSERIA GONORRHOEAE Not Detected 23.000 - 32.117 ppm 05/08/2024 7:28 AM EDT [facility] [place] TRICHOMONAS VAGINALIS 0.000 23.000 - 32.119 ppm 05/08/2024 7:28 AM EDT [facility] [place] TRICHOMONAS VAGINALIS Not Detected 23.000 - 32.119 ppm 05/08/2024 7:28 AM EDT [facility] [place] MYCOPLASMA GENITALIUM 0.000 19.961 - 24.689 ppm 05/08/2024 7:28 AM EDT [facility] MYCOPLASMA GENITALIUM Not Detected 19.961 - 24.689 ppm 05/08/2024 7:28 AM EDT [facility] ERMB, C; MEFA 18.407(A) 23.000 - 27.611 ppm 05/08/2024 7:28 AM EDT [facility] ERMB, C; MEFA Detected(A) 23.000 - 27.611 ppm 05/08/2024 7:28 AM EDT [facility] TET B, TET M 18.970(A) 23.000 - 27.778 ppm 05/08/2024 7:28 AM EDT [facility] TET B, TET M Detected(A) 23.000 - 27.778 ppm 05/08/2024 7:28 AM EDT [facility] Tissue 05/07/2024 10:5 7 AM EDT 05/08/2024 2:53 AM EDT us Talya OJEDA LAB BLOOD ORDERABLES Final [facility]ul t [facility] [address] [place] [address] * US OB 14+ weeks anatomy scan (04/26/2024 1:20 PM EST) Anatomical Region Laterality Modality Body Ultrasound 04/26/2024 1:20 PM EST Narrative 04/26/2024 1:20 PM EST THIS EXAM WAS PERFORMED AT [facility] NAME: JUAN DIEGORAMEZJoann Shelby : 2000 SEX: F Accession Number: [id number] ORDERING PHYSICIAN: DEMETRIUS RECINOS REFERRING PHYSICIAN: DEMETRIUS RECINOS Coding ----- --------- Procedures [id number]: Ultrasound, uterus, real time with image documentation, and maternal evaluation, after first trimester (> or = 14 weeks 0 days), transabdominal approach; single or first gestation [id number]: Ultrasound, uterus, real time with image documentation, and maternal evaluation, after first trimester (> or = 14 weeks 0 days), transabdominal approach; each additional gestation Indication ----- --------- Viability, Supervision of high risk , Obesity in , Crittenden-Di twin History ----- --------- OB History 1. Para 0 [id number] Current ----- --------- Cell free DNA LOW [...] 0 lb 5 oz EFW by Hadlock ([id number]-FL) EFW discordance 2.8 % Head / Face [...] 0 lb 5 oz EFW by Hadlock ([id number]-FL) EFW discordance 2.8 % Head / Face [...] Thorax RVOT view. LVOT view. 3-vessel view. 5-dtiycv-pwwlrby view. Interventricular septum. Great vessels. Cardiac position. [...] Thorax RVOT view. LVOT view. 3-vessel view. 3-sqjtsm-iahplcj view. Aortic arch view. Bicaval view. Ductal [...] - 04/26/2024 THIS EXAM WAS PERFORMED AT [facility] NAME: HEATHER ADAMSON : 2000 SEX: F Accession Number: [id number] ORDERING PHYSICIAN: DEMETRIUS RECNIOS REFERRING PHYSICIAN: DEMETRIUS RECINOS Coding ----- --------- Procedures [id number]: Ultrasound, uterus, real time with imagedocumentation, and maternal evaluation, after first trimester (> or = 14 weeks 0 days), transabdominalapproach; single or first gestation [id number]: Ultrasound, uterus, real time with imagedocumentation, and maternal evaluation, after first trimester (> or = 14 weeks 0 days), transabdominalapproach; each additional gestation Indication ----- --------- Viability, Supervision of high risk , Obesity in ,Crittenden-Di twin History ----- --------- OB History 1. Para 0 [id number] Current ----- --------- Cell free DNA LOW [...] previous U/S 16 w + 0 d DROON by previous Ultrasound: 10/11/2024 Ultrasound examination on: [...] Hadlock OFD 40.5 mm 16w 1d 44% Ubmerto HC 120.5 mm 16w 0d 22% Hadlock AC 106.1 mm 16w 4d 60% Hadlock Femur 18.0 mm 15w 2d 13% Hadlock Humerus 20.5 mm 16w 0d 49% Umberto HC / AC 1.14 13% Hadlock Weight Calculation: EFW 141 g 24% Hadlock EFW (lb,oz) 0 lb 5 oz EFW by Hadlock (EJP-UE-YM-FL) EFW discordance 2.8 % Head / Face [...] 0 lb 5 oz EFW by Hadlock (IHE-OC-GT-FL) EFW discordance 2.8 % Head / Face [...] Thorax RVOT view. LVOT view. 3-vessel view. 6-ilqjif-tnaacze view.Interventricular septum. Great vessels. Cardiac position. Cardiac [...] Thorax RVOT view. LVOT view. 3-vessel view. 0-nfhzei-ozyljov view.Aortic arch view. Bicaval view. Ductal arch [...] 2.1 cm. Recommendations ----- --------- Please see [facility] documentation from today. The patient is scheduled to return in 2 week(s) for [facility]. Subsequent follow up or other follow up as clinically determined byprimary OB provider unless otherwise specified by [facility]. Results forwarded to ordering provider so they can follow up with thepatient as necessary. us Demetrius Jorje DO IMG OB US PROCEDURES Final Resul t documented in this encounter Visit Diagnoses Not on filedocumented in this encounter Care Teams Customs And Border Protection Officer Relationship Specialty Start Date End Date Edith Ford MD [address] [place] [address] PCP - General Family Medicine 09/01/22 documented as of this encounter
--- OUTSIDE RECORDS SUMMARY | 2024-08-29 07:52 | XMS_ITS | Encounter Summary ---
Author Organization [facility] Address [address] [place] [address] Care Team Providers Care Color Card Maker Name Role Phone Edith Ford MD Primary Care Provider +1- [phone] Encounter Details Date Type Department Care Team (Late Contact Info) Description 03/28/2024 Abstract [facility] [address] [facility] [place] [address] [place] [address] [address] [place], [facility]11 Social History [...] Description 09/12/2024 10:50 AM EDT Routine [facility] [address] [place] [address] Dhruv Recinos, [facility] Hair [place], [place] [id number] documented as of this encounter Visit Diagnoses Not on filedocumented in this encounter Care Teams Color Card Maker Relationship Specialty Start Date End Date Edith Ford MD [address] [place] [address] PCP - General Family Medicine 09/01/22 documented as of this encounter
--- OUTSIDE RECORDS SUMMARY | 2024-08-29 07:52 | XMS_ITS | Encounter Summary ---
Author Organization [facility] Address [address] [place] [address] Care Team Providers Care Wire Drawing Machine Operator Name Role Phone Edith Ford MD Primary Care Provider +1- [phone] Encounter Details Date Type Department Care Team (Late Contact Info) Description 08/28/2024 Abstract [facility] [address] [place] [address] Dhruv Recinos [facility] Hair [place], [facility]11 Social History Tobacco Use Types Packs/Day Years [...] 09/12/2024 10:50 AM EDT Routine [facility] [address] [place] [address] Dhruv Recinos, [facility] Hair [place], [place] [id number] documented as of this encounter Visit Diagnoses Not on filedocumented in this encounter Care Teams Wire Drawing Machine Operator Relationship Specialty Start Date End Date Edith Ford MD [address] [place] [address] PCP - General Family Medicine 09/01/22 documented as of this encounter
--- OUTSIDE RECORDS SUMMARY | 2024-08-29 07:52 | XMS_ITS ---
Author Organization [facility] Source Produ ction (ClinicalSummary Clone) Address Unknown Care Team Providers Care Personal Banking Advisor Name Role Phone Unavailable Primary Care Physician Unavailab le Results * [UNITY] ANEUPLOIDY NIPT Performed by: [facility] [facility] Value Range Date Fraction 4.5% 03/22/2024 06 :36 am UT Trisomy 13 LOW RISK <1 in 10,000 2024 06:36 am UT Trisomy 18 LOW RISK <1 in 10,000 2024 06:36 am UT Trisomy 21 LOW RISK <1 in 10,000 2024 06:36 am UT Sex FEMALE & FEMALE 03/22/2024 0 6:36 am UTC Gestation TWIN - MONOZYGOTIC (IDENTICAL) 03/22/2024 06:36 am UT For detailed report, see PDF See PDF 03/22/2024 06:36 am UTC 03/22/2024 06:3 6 am UT Social History Observation Value Start Date End Date
--- OUTSIDE RECORDS SUMMARY | 2024-08-29 07:52 | XMS_ITS | Encounter Summary ---
Author Organization [facility] Address [address] [place] [address] Care Team Providers Care Fire Alarm Dispatcher Name Role Phone Edith Ford MD Primary Care Provider +1- [phone] Encounter Details Date Type Department Care Team (Late Contact Info) Description 03/15/2024 Abstract [facility] [address] [facility] [place] [address] Dhruv Recinos [facility] Hair [place], [facility]11 Social History Tobacco Use Types Packs/Day [...] Description 09/12/2024 10:50 AM EDT Routine [facility] [address] [place] [address] Dhruv Recinos, [facility] Hair [place], [place] [id number] documented as of this encounter Visit Diagnoses Not on filedocumented in this encounter Care Teams Fire Alarm Dispatcher Relationship Specialty Start Date End Date Edith Ford MD [address] [place] [address] PCP - General Family Medicine 09/01/22 documented as of this encounter
--- OUTSIDE RECORDS SUMMARY | 2024-08-29 07:52 | XMS_ITS | Encounter Summary ---
Author Organization [facility] Address [address] [place] [address] Care Team Providers Care Mangle Feeder Name Role Phone Edith Ford MD Primary Care Provider +1- [phone] Encounter Details Date Type Department Care Team ([facility] Contact Info) Description 02/23/2024 Abstract [facility] [address] [facility] [place] [address] [place] [id number] Social History Tobacco Use Types Packs/Day Years [...] Upcoming Encounters Date Type Department Care Team ([facility] Contact Info) Description 09/12/2024 10:50 AM EDT Routine [facility] [address] [facility] [place] [address] [place], [place] [address] documented as of this encounter Visit Diagnoses Not on filedocumented in this encounter Care Teams Mangle Feeder Relationship Specialty Start Date End Date Edith Ford MD [address] [place] [address] PCP - General Family Medicine 09/01/22 documented as of this encounter
--- OUTSIDE RECORDS SUMMARY | 2024-08-29 07:52 | XMS_ITS | Encounter Summary ---
Author Organization [facility] Address [address] [place] [address] Care Team Providers Care Bookkeeping Assistant Name Role Phone Edith Ford MD Primary Care Provider +1- [phone] Encounter Details Date Type Department Care Team (Late Contact Info) Description 03/08/2024 Abstract [facility] [address] [facility] [place] [address] [facility] Hair [place], [facility]11 Social History Tobacco Use Types Packs/Day [...] Description 09/12/2024 10:50 AM EDT Routine [facility] [address] [place] [address] Dhruv Recinos, [facility] Hair [place], [place] [id number] documented as of this encounter Visit Diagnoses Not on filedocumented in this encounter Care Teams Bookkeeping Assistant Relationship Specialty Start Date End Date Edith Ford MD [address] [place] [address] PCP - General Family Medicine 09/01/22 documented as of this encounter
--- OUTSIDE RECORDS SUMMARY | 2024-08-29 07:52 | XMS_ITS | Encounter Summary ---
Author Organization [facility] Address [address] [place] [address] Care Team Providers Care Admeasurer Name Role Phone Edith Ford MD Primary Care Provider +1- [phone] Encounter Details Date Type Department Care Team ([facility] Contact Info) Description 09/01/2022 Abstract [facility] [address] [facility] [address] Talya Reyna PA [address] [place] [address] Dr [place], [facility]11 Social History Tobacco Use Types Packs/Day Years [...] Upcoming Encounters Date Type Department Care Team ([facility] Contact Info) Description 09/12/2024 10:50 AM EDT Routine [facility] [address] [place] [address] [place] [address] Dhruv Recinos [address] [place] [id number] documented as of this encounter Visit Diagnoses Not on filedocumented in this encounter Care Teams Admeasurer Relationship Specialty Start Date End Date Edith Ford MD [address] [place] [address] PCP - General Family Medicine 09/01/22 documented as of this encounter
--- OUTSIDE RECORDS SUMMARY | 2024-08-29 07:52 | XMS_ITS | Patient Health Record ---
Author Organization [facility] Address [address] [place] [address] Care Team Providers Care Radiator Specialist Name Role Phone Siddharth Weinstein Primary Care Provider Reason For Referral No Information Encounters Encounter Location Date Provider Diagnosis [place] [address] [place] [address] 06/05/2024 Siddharth Weinstein Cracked tooth K03.81 ; Dental caries on pit and fissure surface penetrating into dentin K02.52 ; Encounter for dental examination and cleaning with abnormal findings Z01.21 ; Other dental procedure status Z98.818 and Disturbances in tooth eruption K00.6 Assessments Encounter Date Diagnosis (ICD Code) Assessment Notes Treatment Notes Treatment Clinical Notes Section Notes 06/05/2024 Cracked tooth (ICD-10 - K03.81) 06/05/2024 Dental caries on pit and fissure surface penetrating into dentin (ICD-10 - K02.52) 06/05/2024 Encounter for dental examination and cleaning with abnormal findings (ICD-10 - Z01.21) 06/05/2024 Other dental procedure status (ICD-10 - Z98.818) 06/05/2024 Disturbances in tooth eruption (ICD-10 - K00.6) Plan Of Treatment No Information Insurance Providers Payer Name Payer Address Payer Phone Subscriber Number Group Number Insured Name Patient Relationship to Insured Coverage Start Date Coverage End Date Dental CareSource [place] [address] [place] [address] [id number] JUAN DIEGO ROMERO Self - patient is the insured 3 [facility] [address] [place] [address] [id number] JUAN DIEGO ROMERO Self - patient is the insured 3
--- OUTSIDE RECORDS SUMMARY | 2024-08-29 07:52 | XMS_ITS | Encounter Summary ---
Author Organization [facility] Address [address] [place] [address] Care Team Providers Care Plant Custodian Name Role Phone Edith Ford MD Primary Care Provider +1- [phone] Encounter Details Date Type Department Care Team (Late Contact Info) Description 08/28/2024 Clinisync Result Encounter [facility] External Department Unsolicited Dhruv Recinos, DO 102 [place] [id number] Social History Tobacco Use Types Packs/Day Years [...] AM EDT Routine [facility] [address] [place] [address] Dhruv Recinos DO [address] [place] [address] documented as of this encounter Procedures Procedure Name Priority Date/Time Associated Diagnosis Comments GLUCOSE TOLERANCE 3 HOUR Routine 08/28/2024 7:12 AM EDT documented in this encounter Results * (ABNORMAL) GLUCOSE TOLERANCE 3 HOUR (08/28/2024 7:12 AM EDT) GLUCOSE TOLERANCE 3 HOUR (H) mg/dL [facility] Comment: GLU FAST 95H (<95) Col: 08/28/24 0712 GLU 1HR 174 (<180) Col: 08/28/24 0814 GLU 2HR 173H (<155) Col: 08/28/24 0916 GLU 3HR 114 (<140) Col: 08/28/24 1018 08/28/2024 7:12 AM EDT 08/28/2024 7:18 AM EDT Narrative [facility] - 08/28/2024 11:04 AM EDT us Dhruv Jorje DO LAB BLOOD ORDERABLES [facility] documented in this encounter Visit Diagnoses Not on filedocumented in this encounter Care Teams Plant Custodian Relationship Specialty Start Date End Date Edith Ford MD [address] [place] [address] PCP - General Family Medicine 09/01/22 documented as of this encounter
--- OUTSIDE RECORDS SUMMARY | 2024-08-29 07:52 | XMS_ITS | Encounter Summary ---
Author Organization [facility] Address [address] [place] [address] Care Team Providers Care Bleach Tester Name Role Phone Edith Ford MD Primary Care Provider +1- [phone] Encounter Details Date Type Department Care Team (Late st Contact Info) Description 08/28/2024 Telephone [facility] [address] [place] [address] Dhruv Recinos, DO [address] [place], [facility]11 Social History Tobacco Use Types Packs/Day Years [...] encounter Miscellaneous Notes * Telephone Encounter - Mackenzie Davison LPN - 08/28/2024 1:56 PM EDT Patient was called and made aware of results and that we will order DM edu and testing and that shewill take supplies with her she will keep log of diet and readings to bring to office. PVU and referral sent to [facility] patient does have appointment 08/29/2024. documented in this encounter Plan of Treatment Upcoming Encounters Date Type Department Care Team (Late st Contact Info) Description 09/12/2024 10:50 AM EDT Routine [facility] [address] [facility] [place] [address] Dhruv Recinos, DO [address] [facility] [place] [address] documented as of this encounter Visit Diagnoses Diagnosis Gestational diabetes mellitus (GDM), antepartum, gestational diabetes method of control unspecified ([facility]) Elevated glucose tolerance test Impaired glucose tolerance test documented in this encounter Care Teams Bleach Tester Relationship Specialty Start Date End Date Edith Ford MD [address] [place] [address] PCP - General Family Medicine 09/01/22 documented as of this encounter
--- OUTSIDE RECORDS SUMMARY | 2024-08-29 07:53 | XMS_ITS ---
Author Organization [facility] Source Produ ction (ClinicalSummary Clone) Address Unknown Care Team Providers Care Negative Turner Name Role Phone Unavailable Primary Care Physician Unavailab le Results * [UNITY] CARRIER SCREEN Performed by: [facility] Component Value Range Date Sickle Cell Disease/Beta-Thalassemia/Hemo globinopathies carrier screen NEGATIVE 03/28/2024 04:05 pm UTC Alpha-Thalassemia carrier screen NEGATIVE 03/28/2024 04:05 pm UTC Cystic Fibrosis carrier screen NEGATIVE 03/28/2024 04:05 pm UTC Spinal Muscular Atrophy carrier screen NEGATIVE 2 SMN1 copies, SNP not present 03/28/2024 04:05 pm UT For detailed report, see PDF See PDF 03/28/2024 04:05 pm UTC 03/28/2024 04:0 5 pm UT Social History Observation Value Start Date End Date
--- OUTSIDE RECORDS SUMMARY | 2024-08-29 07:53 | XMS_ITS | Encounter Summary ---
Author Organization [facility] Address [address] [place] [address] Care Team Providers Care Christian [employer] Nurse Name Role Phone Edith Ford MD Primary Care Provider +1- [phone] Encounter Details Date Type Department Care Team (Late Contact Info) Description 07/05/2024 Abstract [facility] [address] [place] [address] [place] [address] [address], [facility]11 Social History Tobacco Use Types Packs/Day Years [...] Description 09/12/2024 10:50 AM EDT Routine [facility] [address] [place] [address] Dhruv Recinos, [facility] Hair [place], [place] [id number] documented as of this encounter Visit Diagnoses Not on filedocumented in this encounter Care Teams Christian Science Nurse Relationship Specialty Start Date End Date Edith Ford MD [address] [place] [address] PCP - General Family Medicine 09/01/22 documented as of this encounter
--- OUTSIDE RECORDS SUMMARY | 2024-08-29 07:53 | XMS_ITS | Encounter Summary ---
Author Organization [facility] Address [address] [place] [address] Care Team Providers Care Erection Shop Supervisor Name Role Phone Edith Ford MD Primary Care Provider +1- [phone] Encounter Details Date Type Department Care Team (Late Contact Info) Description 05/28/2024 Abstract [facility] [address] [place] [address] Dhruv Recinos [facility] Hair [place], [facility]11 Social History Tobacco Use Types Packs/Day Years [...] Description 09/12/2024 10:50 AM EDT Routine [facility] [address] [place] [address] Dhruv Recinos, [facility] [place], [place] [address] documented as of this encounter Visit Diagnoses Not on filedocumented in this encounter Care Teams Erection Shop Supervisor Relationship Specialty Start Date End Date Edith Ford MD [address] [place] [address] PCP - General Family Medicine 09/01/22 documented as of this encounter
--- OUTSIDE RECORDS SUMMARY | 2024-08-29 07:53 | XMS_ITS | Encounter Summary ---
Author Organization [facility] Address [address] [place] [address] Care Team Providers Care Tower Foreman Name Role Phone Edith Ford MD Primary Care Provider +1- [phone] Encounter Details Date Type Department Care Team (Late Contact Info) Description 05/15/2024 Orders Only [facility] [address] [facility] [place] [address] Valeri Fischer [place] [address] [place] [address] Social History Tobacco Use Types Packs/Day Years [...] Description 09/12/2024 10:50 AM EDT Routine [facility] [address] [facility] [place] [address] Dhruv Recinos DO [address] [place], [place] [address] [place], [place] [id number] documented as of this encounter Procedures Procedure Name Priority Date/Time Associated Diagnosis Comments PAP SMEAR Routine 05/07/2024 12:00 AM EDT documented in this encounter Results * Pap Smear (05/07/2024 12:00 AM EDT) Swab Cervical swab / Unknown us T[facility] ORDERABLES Final Re sult EXTERNAL LAB documented in this encounter Visit Diagnoses Not on filedocumented in this encounter Care Teams Tower Foreman Relationship Specialty Start Date End Date Edith Ford MD [address] [place] [address] PCP - General Family Medicine 09/01/22 documented as of this encounter
--- OUTSIDE RECORDS SUMMARY | 2024-08-29 07:53 | XMS_ITS | Encounter Summary ---
Author Organization [facility] Address [address] [place] [address] Care Team Providers Care Cryptologist Name Role Phone Edith Ford MD Primary Care Provider +1- [phone] Encounter Details Date Type Department Care Team (Late Contact Info) Description 07/18/2024 Abstract [facility] [address] [facility] [place] [address] [place] [address] [address] [place], [facility] [address] Social History Tobacco Use Types Packs/Day Years [...] [facility] [address] [place] [address] Dhruv Recinos, [facility] [address] [place], [place] [id number] documented as of this encounter Visit Diagnoses Not on filedocumented in this encounter Care Teams Cryptologist Relationship Specialty Start Date End Date Edith Ford MD [address] [place] [address] PCP - General Family Medicine 09/01/22 documented as of this encounter
--- OUTSIDE RECORDS SUMMARY | 2024-08-29 07:53 | XMS_ITS | Encounter Summary ---
Author Organization [facility] Address [address] [place] [address] Care Team Providers Care Biometrics Consultant Name Role Phone Edith Ford MD Primary Care Provider +1- [phone] Encounter Details Date Type Department Care Team (Late Contact Info) Description 08/26/2024 Abstract [facility] [address] [facility] [address] [place] [address] Hair [place], [facility] Social History Tobacco Use Types [...] Description 09/12/2024 10:50 AM EDT Routine [facility] [address] [place] [address] Dhruv Recinos, [facility] [place], [place] [id number] documented as of this encounter Visit Diagnoses Not on filedocumented in this encounter Care Teams Biometrics Consultant Relationship Specialty Start Date End Date Edith Ford MD [address] [place] [address] PCP - General Family Medicine 09/01/22 documented as of this encounter
--- OUTSIDE RECORDS SUMMARY | 2024-08-29 07:53 | XMS_ITS | Encounter Summary ---
Author Organization [facility] Address [address] [place] [address] Care Team Providers Care Embossing Press Operator Name Role Phone Edith Ford MD Primary Care Provider +1- [phone] Encounter Details Date Type Department Care Team (Late Contact Info) Description 08/16/2024 Abstract [facility] [address] [facility] [place] [address] Dhruv Recinos [facility] Hair [place], [facility]11 Social History Tobacco Use Types Packs/Day Years [...] Description 09/12/2024 10:50 AM EDT Routine [facility] [address] [place] [address] Dhruv Recinos, [facility] [place], [place] [id number] documented as of this encounter Visit Diagnoses Not on filedocumented in this encounter Care Teams Embossing Press Operator Relationship Specialty Start Date End Date Edith Ford MD [address] [place] [address] PCP - General Family Medicine 09/01/22 documented as of this encounter
--- OUTSIDE RECORDS SUMMARY | 2024-08-29 07:53 | XMS_ITS | Encounter Summary ---
Author Organization [facility] Address [address] [place] [address] Care Team Providers Care Plugman Name Role Phone Edith Ford MD Primary Care Provider +1- [phone] Encounter Details Date Type Department Care Team (Late Contact Info) Description 06/17/2024 Abstract [facility] [address] [facility] [place] [address] Dhruv Recinos [facility] Hair [place], [facility]11 Social History Tobacco Use Types Packs/Day Years [...] Description 09/12/2024 10:50 AM EDT Routine [facility] [address] [place] [address] Dhruv Recinos, [facility] [place], [place] [id number] documented as of this encounter Visit Diagnoses Not on filedocumented in this encounter Care Teams Plugman Relationship Specialty Start Date End Date Edith Ford MD [address] [place] [address] PCP - General Family Medicine 09/01/22 documented as of this encounter
--- OUTSIDE RECORDS SUMMARY | 2024-08-29 07:53 | XMS_ITS | Encounter Summary ---
Author Organization [facility] [employer] [facility] tem Address [id number] [address] 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 Procedures US MFM with or without consult Aiden Meza MD [address], [address] [place] [address] Phone: tel: fax: Maternal- Medicine at [place] [address] [place] [address] Phone: tel: fax: Referral ID Status Reason Start Date Expiration Date V isits Requested Visits Authorized [id number] Pending Review 08/16/2024 08/16/2025 1 1 * Diagnostic Imaging (Routine) - Pending Review Specialty Diagnoses / Procedures Referred By Contac t Referred To Contact Maternal and Medicine Diagnoses Monochorionic 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 Procedures US MFM with or without consult Aiden Meza MD [address], [address] [place] [address] Phone: tel: fax: Maternal- Medicine at [place] [id number] [facility] [place] [address] Phone: tel: fax: Referral ID Status Reason Start Date Expiration Date V isits Requested Visits Authorized [id number] Pending Review 08/16/2024 08/16/2025 1 1 Encounter Details Date Type Department Care Team (Late st Contact Info) Description 08/16/2024 Orders Only Maternal- Medicine at [facility] [address] [facility] [place] [address] Elizabeth Wang RN Monochorionic diamniotic twin gestation [...] Info) Description 08/29/2024 3:30 PM EDT Appointment [facility] Imaging [address] [place] [address] 09/11/2024 1:30 PM EDT Appointment [facility] Imaging [address] [place] [address] Scheduled Orders Name Type Priority Associated Diagnoses [...]
--- OUTSIDE RECORDS SUMMARY | 2024-08-29 07:53 | XMS_ITS | Clinical Summary ---
Author Organization [employer] s tem Address [facility] [id number] [address] [place] [address] Care Team Providers Care Risk Engineer Name Role Phone Unavailable Primary Care Provider [...] different from the original. CARE COORDINATION DIAGNOSIS: Lynn Di Twins with 28% Discordancy Resolved Pt removed from NICU list Referring OB: Jorje MFM: Julian Maternal Hx: MSAFP: cfDNA: Low risk Monozygotic XX XX Carrier: Neg 05/31 Amnio: []Genetic Counselling: []Peds Cardiology: []Peds Urology: []Peds Ortho: []Peds Surgery: []Peds Neurology: []Peds Neurosurgery: []Peds Craniofacial: []NICU Consult: []Palliative Care Consult: []SGM: []Life Connection: [x]Datto: 05/31/24 Today's imaging is very reassuring. Normal anatomy and echocardiogram without anomalies. Additionally, no evidence of twin-twin transfusion syndrome (TTTS), twin-anemia polycythemia sequence (TAPS), or selective growth restriction (sFGR). No interventions are recommended at this time. Can resume follow up with primary MFM. 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 (Primary Dx) 08/16/2024 Telephone Maternal- Medicine at [facility] [address] [place] [address] Aiden Reddy MD 08/15/2024 11:30 AM EDT - 08/15/2024 11:59 PM EDT Hospital Encounter [facility] Imaging [address] [place] [address] Monochorionic 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 Discharge Disposition: Home 08/15/2024 Travel 07/31/2024 3:30 PM EDT - 07/31/2024 11:59 PM EDT Hospital Encounter [facility] US Imaging [address] [place] [address] Monochorionic 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 Discharge Disposition: Home 07/31/2024 Travel 07/17/2024 2:00 PM EDT Office Visit Maternal- Medicine at [facility] [address] [place] [address] Aiden Reddy MD Monochorionic diamniotic twin gestation in second trimester (Primary Dx) 07/17/2024 1:15 PM EDT - 07/17/2024 11:59 PM EDT Hospital Encounter [facility] Imaging [address] [place] [address] Monochorionic diamniotic twin gestation in second trimester; Echogenic intracardiac focus of fetus on ultrasound; 24 weeks gestation of Discharge Disposition: Home 07/17/2024 Orders Only Maternal- Medicine at [facility] [address] [place] [address] Elizabeth Wang RN Monochorionic 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 (Primary Dx) 07/17/2024 Travel 07/05/2024 8:00 AM EDT - 07/05/2024 11:59 PM EDT Hospital Encounter [facility] Imaging [address] [place] [address] Monochorionic diamniotic twin gestation in second trimester; Echogenic intracardiac focus of fetus on ultrasound; 24 weeks gestation of Discharge Disposition: Home 07/05/2024 Travel 06/24/2024 Orders Only Maternal- Medicine at [facility] [address] [place] [address] Lara Borrero RN Monochorionic diamniotic twin gestation in second trimester (Primary Dx); Echogenic intracardiac focus of fetus on ultrasound; 24 weeks gestation of 06/21/2024 11:30 AM EDT Office Visit Maternal- Medicine at [facility] [address] [place] [address] Kvng Jordan MD 24 weeks gestation of (Primary Dx); Monochorionic diamniotic twin gestation in second trimester 06/21/2024 8:27 AM EDT - 06/21/2024 11:59 PM EDT Hospital Encounter [facility] Imaging [address] [place] [address] Monochorionic diamniotic twin gestation in second trimester; Echogenic intracardiac focus of fetus on ultrasound Discharge Disposition: Home 06/21/2024 Telephone Maternal- Medicine at [facility] [address] [place] [address] Oneida Brunson 06/21/2024 Travel 06/14/2024 Travel 06/12/2024 Orders Only Maternal- Medicine at [facility] [address] [place] [address] Elizabeth Wang RN Monochorionic diamniotic twin gestation in second trimester (Primary Dx); Echogenic intracardiac focus of fetus on ultrasound 06/07/2024 Travel 06/04/2024 Orders Only Maternal- Medicine at [facility] [address] [place] [address] Ref Prov, Not In System from Last [...] Info) Description 08/29/2024 3:30 PM EDT Appointment [facility] US Imaging [address] [place] [address] 09/11/2024 1:30 PM EDT Appointment [facility] Imaging [address] [place] [address] Health Maintenance Due Date Last [...] period is included. Anatomical Region Laterality Modality OB-PILOT CONTROL OPERATOR HELPER Ultrasound 08/15/2024 12:0 6 PM EDT Narrative 08/15/2024 12:57 PM EDT NAME: HEATHER ADAMSON : 2000 SEX: F Accession Number: [id number] ORDERING PHYSICIAN: AIDEN REDDY REFERRING PHYSICIAN: DEMETRIUS BRYSON Coding ----- --------- Procedures 62328: Follow-up Ultrasound, per fetus. 2 Indication ----- --------- Obesity in , Lynn-Di twin , Supervision of high risk - A - EIF. History ----- --------- OB History 1. Para 0 [id number] Current ----- --------- Cell free DNA LOW [...] EFW (oz) 5 oz EFW by: Hadlock (ANX-LM-MK-FL) Extended Tibia 52.1 mm 30w 6d 24% Umberto Customer Relations Coordinator 3.2 mm CM 4.0 mm <1% Nicolaides [...] EFW (oz) 11 oz EFW by: Hadlock (EZU-DC-JT-FL) Extended Tibia 53.7 mm 31w 5d 44% Umberto Customer Relations Coordinator 3.9 mm CM 5.6 mm 10% Nicolaides [...] ADAMSON : 2000 SEX: F Accession Number: [id number] ORDERING PHYSICIAN: AIDEN REDDY REFERRING PHYSICIAN: DEMETRIUS BRYSON Coding ----- --------- Procedures 39854: Follow-up Ultrasound, per fetus. 2 Indication ----- --------- Obesity in , Lynn-Di twin , Supervision of high riskpregnancy - A - EIF. History ----- --------- OB History 1. Para 0 [id number] Current ----- --------- Cell free DNA LOW [...] EFW (oz) 5 oz EFW by: Hadlock (DDL-VO-LW-FL) Extended Tibia 52.1 mm 30w 6d 24% Umberto Customer Relations Coordinator 3.2 mm CM 4.0 mm <1% Nicolaides [...] EFW (oz) 11 oz EFW by: Hadlock (QCX-QD-UR-FL) Extended Tibia 53.7 mm 31w 5d 44% Umberto Customer Relations Coordinator 3.9 mm CM 5.6 mm 10% Nicolaides [...] thepatient as necessary. us Aiden Reddy MD [facility] [place] ORDER[place]LES Final Resul t * Ultrasound - Office (05/31/2024 3:00 PM EDT) Only the most recent of2 resultswithin the time period is included. Anatomical Region Laterality Modality AMB Ultrasound us Not In System Ref Prov IMG US ORDERABLES Final R esult from Last 3 Months Insurance [employer]
--- OUTSIDE RECORDS SUMMARY | 2024-08-29 07:53 | XMS_ITS | Clinical Summary ---
Author Organization [facility] Address [address] [place] [address] Care Team Providers Care Black Ash Burner Operator Name Role Phone Edith Ford MD Primary Care Provider +1- [phone] Allergies Active Allergy Reactions Criticality Noted Date Comments Sumatriptan Shortness of breath High 08/14/2016 Theophyllines Hives,Rash High 09/28/2010 Medications Vit-Fe Fumarate-FA ( Vitamins) 28-0.8 MG tabletIndications:P regnancy, unspecified gestational age ([facility]),Encounter for supervision of normal first in first trimester ([facility]) Take 1 tablet by mouth Daily 30 tablet 11 5 026 Active aspirin 81 MG EC tablet Take 81 mg by mouth 1 (one) time 5 Active folic acid (Folvite) 1 MG tablet Take 1 mg by mouth in the morning. 5 025 Active magnesium oxide (Mag-Ox) 400 MG tabletIndications:N onintractable headache, unspecified chronicity pattern, unspecified headache type Take 1 tablet (400 mg) by mouth Daily 30 tablet 6 5 025 Active iron polysaccharides (ProFe) 391.3 (180 Fe) MG capsuleIndications: Other iron deficiency anemia Take 1 capsule (391.3 mg) by mouth Daily 30 capsule 6 5 025 Active Lancets Ultra Thin miscIndications:Ges tational diabetes mellitus (GDM), antepartum, gestational diabetes method of control unspecified ([facility]),Elevated glucose tolerance test 1 each by In Vitro route Daily Use to check FSBS four times daily 150 each 3 5 025 Active Alcohol Swabs (Alcohol Prep Pad) 70 % padsIndications:Ges tational diabetes mellitus (GDM), antepartum, gestational diabetes method of control unspecified ([facility]-HCC),Elevated glucose tolerance test Apply 1 Pad topically Daily Use four times daily to check FSBS. 150 each 3 5 Active Glucose Blood (Blood Glucose Test) stripIndications:Ge stational diabetes mellitus (GDM), antepartum, gestational diabetes method of control unspecified ([facility]-HCC),Elevated glucose tolerance test 1 strip by In Vitro route Daily Use in the morning prior to breakfast, 1 hour after each meal for a total of 4times daily. 150 strip 3 5 025 Active Blood Glucose Monitoring Suppl ([employer] Blood Glucose Meter) deviceIndications:G estational diabetes mellitus (GDM), antepartum, gestational diabetes method of control unspecified ([facility]HS-HCC),Elevated glucose tolerance test 1 kit in the morning and 1 kit at noon and 1 kit in the evening and 1 kit before bedtime. 1 each 5 Active Active Problems Estimated Date of Delivery Comme nts Yes 10/09/2024 Based on last me nstrual period of 01/03/2024 No known active problems Encounters Date Type Department Care Team Description 08/28/2024 1:00 PM EDT Routine [facility] [address] [place] [address] Dhruv Recinos DO Third trimester ([facility]); 34 weeks gestation of ([facility]) 08/28/2024 Abstract [facility] [place] [address] [place] [address] Talya Reyna PA 08/28/2024 Abstract [facility] [place] [address] [place] [address] Dhruv Recinos DO 08/28/2024 Abstract [facility] [place] [address] [place] [address] Dhruv Recinos, DO 08/28/2024 Telephone [facility] [address] [place] [address] Dhruv Recinos, DO 08/28/2024 Clinisync Result Encounter [facility] External Department Unsolicited Dhruv Recinos, DO 08/26/2024 Abstract [facility] [address] [place] [address] Dhruv Recinos, DO 08/21/2024 1:00 PM EDT Routine [facility] [address] [place] [address] Talya Reyna PA 33 weeks gestation of ([facility]); Third trimester ([facility]); Monochorionic diamniotic twin , antepartum ([facility]); Nonintractable headache, unspecified chronicity pattern, unspecified headache type; Other iron deficiency anemia 08/21/2024 Bamboo flowsheet [facility] [address] [place] [address] Talya Reyna PA 08/16/2024 Abstract [facility] [address] [place] [address] Dhruv Recinos, DO 08/05/2024 1:50 PM EDT Routine [facility] [address] [place] [address] Dhruv Recinos, DO 30 weeks gestation of ([facility]); Third trimester ([facility]) 08/05/2024 Bamboo flowsheet [facility] [address] [place] [address] Dhruv Recinos, DO 08/01/2024 Abstract [facility] [address] [place] [address] Dhruv Recinos, DO 07/31/2024 Telephone [facility] [address] [place] [address] Dhruv Recinos, DO 07/30/2024 Abstract [facility] [address] [place] [address] Dhruv Recinos, DO 07/18/2024 1:30 PM EDT Routine [facility] [address] [place] [address] [place] [address] Talya Reyna, PA 28 weeks gestation of ([facility]); Third trimester ([facility]) 07/18/2024 Abstract [facility] [address] [place] [address] Dhruv Recinos, DO 07/18/2024 Bamboo flowsheet [facility] [address] [place] [address] Talya Reyna PA 07/17/2024 Results Follow-Up [facility] [address] [place] [address] Kim Estes LPN 07/17/20[address] [facility] [address] [place] [address] Kim Estes, ENGINEERING COORDINATOR 07/16/2024 Clinisync Result Encounter [facility] External Department Unsolicited Dhruv Recinos, DO 07/05/2024 Abstract [facility] [address] [place] [address] Dhruv Recinos, 06/26/2024 3:00 PM EDT Routine [facility] [address] [place] [address] [place] [address] Dhruv Recinos, DO Second trimester ([facility]); 25 weeks gestation of ([facility]); Diabetes mellitus screening; Monochorionic diamniotic twin , antepartum ([facility]) 06/26/2024 Bamboo flowsheet [facility] [address] [place] [address] Dhruv Recinos, DO 06/17/2024 Abstract [facility] [address] [place] [address] Dhruv Recinos DO from Last 3 Months Family History Medical [...] Pressure 122/70 08/28/2024 1:16 PM EDT Pulse 89 06/29/2023 4:38 PM EDT Temperature - - Respiratory Rate - - Oxygen Saturation - - Inhaled Oxygen Concentration - - Weight 149 kg (327 lb 6.4 oz) 08/28/2024 1:16 PM EDT Height 167.6 cm (5' 6 ) 06/02/2022 12:00 PM EDT Body Mass Index 52.84 06/02/2022 12:00 PM EDT Plan of Treatment Upcoming Encounters Date Type Department Care Team (Late st Contact Info) Description 09/12/2024 10:50 AM EDT Routine [facility] [address] [place] [address] Dhruv Recinos DO [facility] [place] [address] Health Maintenance Due Date Last Done Comments Influenza Vaccine (#1) 2024 Procedures Procedure Name Priority Date/Time Associated Diagnosis Comments GLUCOSE TOLERANCE 3 HOUR Routine 08/28/2024 7:12 AM EDT POCT URINALYSIS DIPSTICK Routine 08/21/2024 1:39 PM EDT 33 weeks gestation of ([facility]) Third trimester ([facility]) Monochorionic diamniotic twin , antepartum ([facility]) POCT URINALYSIS DIPSTICK Routine 08/05/2024 2:25 PM EDT 30 weeks gestation of ([facility]) Third trimester ([facility]) POCT URINALYSIS DIPSTICK Routine 07/18/2024 1:44 PM EDT 28 weeks gestation of ([facility]) Third trimester ([facility] ALL CBC WITH AUTO DIFF Routine 07/16/2024 9:24 AM EDT GLUCOSE 1 HOUR Routine 07/16/2024 9:24 AM EDT POCT URINALYSIS DIPSTICK Routine 06/26/2024 3:51 PM EDT Second trimester ([facility]) from Last 3 Months Results * (ABNORMAL) GLUCOSE TOLERANCE 3 HOUR (08/28/2024 7:12 AM EDT) [facility] GLUCOSE TOLERANCE 3 HOUR (H) mg/dL TBH Comment: GLU FAST 95H (<95) Col: 08/28/24 0712 GLU 1HR 174 (<180) Col: 08/28/24 0814 GLU 2HR 173H (<155) Col: 08/28/24 0916 GLU 3HR 114 (<140) Col: 08/28/24 1018 08/28/2024 7:12 AM EDT 08/28/2024 7:18 AM EDT Narrative [facility] - 08/28/2024 11:04 AM EDT us Dhruv Jorje DO LAB BLOOD ORDERABLES [facility] * ([facility]NORMAL) POCT urinalysis dipstick manually resulted [...] DO LAB BLOOD ORDERABLES Final Resul t [facility] TB * (ABNORMAL) ALL CBC WITH AUTO DIFF (07/16/2024 9:24 AM EDT) TB WBC 13.2(H) 4.0 - 11.0 10 3/uL [...] - 07/16/2024 9:41 AM EDT us Dhruv Junioro DO [facility] Final Result [facility] TB from Last 3 Months Insurance [employer] Care Teams Black Ash Burner Operator Relationship Specialty Start Date End Date Edith Ford MD [address] [place] [address] PCP - General Family Medicine 09/01/22
--- OUTSIDE RECORDS SUMMARY | 2024-08-29 07:53 | XMS_ITS | Encounter Summary ---
Author Organization [facility] tem Address [id number] [address] [place] [address] Care Team Providers Care Programs Manager Name Role Phone Unavailable Primary Care Provider Unavailabl e Encounter Details Date Type Department Care Team ([facility] st Contact Info) Description 08/16/2024 Telephone Maternal- Medicine at [facility] [address] [place] [phone] Aiden Meza MD [address] [facility] [address] [place] [address] Social History Tobacco Use Types Packs/Day Years [...] Gillian Beatty - 08/16/2024 1:54 PM EDT Planting Material Remover batshevam providing 08/29 & 09/11 appt details and requested a return call if she had any issues or concerns. documented in this encounter Plan of Treatment Upcoming Encounters Date Type Department Care Team (Late st Contact Info) Description 08/29/2024 3:30 PM EDT Appointment [facility] [address] [place] [address] 09/11/2024 1:30 PM EDT Appointment [facility] [address] [place] [address] documented as of this encounter Visit Diagnoses Not on filedocumented in this encounter
--- OUTSIDE RECORDS SUMMARY | 2024-08-29 07:53 | XMS_ITS | Encounter Summary ---
Author Organization [facility] Address [address] [place] [address] Care Team Providers Care Singer Songwriter Name Role Phone Edith Ford MD Primary Care Provider +1- [phone] Encounter Details Date Type Department Care Team (Late Contact Info) Description 07/30/2024 Abstract [facility] [address] [place] [address] [place] [address] [place], [facility]11 Social History Tobacco Use Types Packs/Day [...] 10:50 AM EDT Routine [facility] [address] [place] [address] Dhruv Recinos, [facility] [address] [place], [place] [id number] documented as of this encounter Visit Diagnoses Not on filedocumented in this encounter Care Teams Singer Songwriter Relationship Specialty Start Date End Date Edith Ford MD [address] [place] [address] PCP - General Family Medicine 09/01/22 documented as of this encounter
--- OUTSIDE RECORDS SUMMARY | 2024-08-29 07:53 | XMS_ITS | Encounter Summary ---
Author Organization [facility] tem Address [id number] [place] [address] Care Team Providers Care Rn Clinical Resource Name Role Phone Unavailable Primary Care Provider Unavailabl e Encounter Details Date Type Department Care Team (Late Contact Info) Description 04/11/2024 Orders Only Maternal- Medicine at [facility] [address] [place] [phone] Ref Prov, [place] [address] Social History Tobacco Use Types Packs/Day Years [...] Info) Description 08/29/2024 3:30 PM EDT Appointment [facility] [address] [place] [phone] 09/11/2024 1:30 PM EDT Appointment [facility] [address] [place] [phone] documented as of this encounter Procedures Procedure [...] ORDERABLES Dang l Result Performing Organization Address [facility] de Phone Number MANUALLY TRANSCRIBED RESULTS * Unlisted Lab Test (03/15/2024 12:14 PM EST) us Not In System Ref Prov LAB BLOOD ORDERABLES Dang l Result Performing Organization Address [facility] de Phone Number MANUALLY TRANSCRIBED RESULTS * Ultrasound - Office (02/23/2024 12:24 PM EST) Anatomical Region Laterality Modality AMB Ultrasound us Not In System Ref Prov IMG US ORDERABLES Final R esult documented in this encounter Visit Diagnoses Not on filedocumented in this encounter
--- OUTSIDE RECORDS SUMMARY | 2024-08-29 07:53 | XMS_ITS | Encounter Summary ---
Author Organization [facility] Address [address] [place] [address] Care Team Providers Care Dietitian Name Role Phone Edith Ford MD Primary Care Provider +1- [phone] Encounter Details Date Type Department Care Team (Late Contact Info) Description 08/01/2024 Abstract [facility] [address] [facility] [place] [place] [address] [place] [address] [address] [place], [facility] Social History Tobacco Use Types Packs/Day [...] Description 09/12/2024 10:50 AM EDT Routine [facility] [address] [place] [address] Dhruv Recinos, [facility] [address] [place], [place] [id number] documented as of this encounter Visit Diagnoses Not on filedocumented in this encounter Care Teams Dietitian Relationship Specialty Start Date End Date Edith Ford MD [address] [place] [address] PCP - General Family Medicine 09/01/22 documented as of this encounter
--- OUTSIDE RECORDS SUMMARY | 2024-08-29 07:53 | XMS_ITS | Encounter Summary ---
Author Organization [facility] tem Address [id number] [address] [place] [address] Care Team Providers Care Metal Mockup Maker Name Role Phone Unavailable Primary Care Provider Unavailabl e Encounter Details Date Type Department Care Team (Late Contact Info) Description 06/04/2024 Orders Only Maternal- Medicine at [place] [address] [place] [phone] Ref Prov, [place] [address] Social History Tobacco Use Types Packs/Day Years [...] Info) Description 08/29/2024 3:30 PM EDT Appointment [facility] [address] [place] [address] 09/11/2024 1:30 PM EDT Appointment [facility] [address] [place] [address] documented as of this encounter Procedures Procedure [...]
--- OUTSIDE RECORDS SUMMARY | 2024-08-29 07:53 | XMS_ITS | Encounter Summary ---
Author Organization [facility] tem Address [id number] [address] [place] [address] Care Team Providers Care Parts Assembler Name Role Phone Unavailable Primary Care Provider [...] Description 08/29/2024 3:30 PM EDT Appointment [facility] [address] [place] [address] 09/11/2024 1:30 PM EDT Appointment [facility] [address] [place] [phone] documented as of this encounter Visit Diagnoses Not on filedocumented in this encounter
--- OUTSIDE RECORDS SUMMARY | 2024-08-29 07:53 | XMS_ITS | Encounter Summary ---
Author Organization [facility] Address [address] [place] [address] Care Team Providers Care Charging Crane Operator Name Role Phone Edith Ford MD Primary Care Provider +1- [phone] Encounter Details Date Type Department Care Team (Late Contact Info) Description 08/21/2024 Bamboo flowsheet [facility] [address] [place] [address] Talya Reyna PA [address] [place], [place] [address] Social History Tobacco Use Types Packs/Day Years [...] AM EDT Routine [facility] [address] [address] Dhruv Recinos DO [address] Art [place], [facility]11 documented as of this encounter Visit Diagnoses Not on filedocumented in this encounter Care Teams Charging Crane Operator Relationship Specialty Start Date End Date Edith Ford MD [address] [place] [address] PCP - General Family Medicine 09/01/22 documented as of this encounter
--- OUTSIDE RECORDS SUMMARY | 2024-08-29 07:56 | XMS_ITS | CCD ---
Author Organization [facility] Care Team Providers Care Clay Thrower Name Role Phone Edith Ford Primary Care Provider [phone] Edith Ford Primary Care Physician Maggie Alex [...] Referring Unavailable JORJE, DHRUV Attending Unavailable VANCE, ATLYA Attending Unavailable JORJE, DHRUV Attending Unavailable VANCE, TALYA Attending Unavailable JORJE, DHRUV Attending Unavailable VANCE, TALYA Attending Unavailable Allergies Allergy Classification Reported Allergen(s) Allergy Type Date of Onset Reaction(s) Facility Theophylline (1 source) Theophylline Drug Allergy 1 [facility] (20 sources) SUMAtriptan; Translations: [sumatriptan] Drug Allergy 7 Pharyngeal swelling (finding), Shortness of breath [facility] (16 sources) Theophylline; Translations: [theophylline] Drug Allergy 5 Hives, Rash [facility] (1 source) Theophylline Drug Allergy 9 [facility] (18 sources) Theophyllines; Translations: [THEOPHYLLINES] Drug Intolerance 1 Hives, Narciso [facility] (1 source) SUMAtriptan; Translations: [SUMATRIPTAN SUCCINATE] Drug Allergy 7 [facility] Repository (1 source) Theophylline Drug Allergy 1 [facility] Rep[facility] Medications Current Medications Medication Drug [...] hrs magnesium oxide 400 mg oral tablet (7 sources) Start: 07-31-2024 End: 08-30-2024 take 1 [...] polysaccharide iron complex 391 mg oral capsule (3 sources) Start: 08-21-2024 End: 09-20-2024 take 1 capsule by mouth once daily iron polysaccharides (ProFe) 391.3 (180 Fe) MG capsule Indications: Other iron deficiency anemia Take 1 capsule (391.3 mg) by mouth Daily 30 capsule 6 08/21/2024 09/20/2024 Active Vit w/Pg-Qsrfbexck-YM (PNV PO) (1 source) Vit w/Yj-Najhpgbwq-MD (PNV PO) Take by mouth. 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] Onset: 01-24-2022 Episodic Other aftercare (1 source) 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; Translations: [TONE CABINET ASSEMBLER USE ORAL HYPOGLYCEMIC DX] Onset: 12-22-2021 Episodic [...] NEGATED: Highlighted row has been ruled out!Unclassified (16 sources) No known active problems 06-29-2023 Results Test Name Value Interpretation Reference Range Facility GLUCOSE TOLERANCE 3 HOURon 0 08-28-2024 GLUCOSE TOLERANCE 3 HOUR High mg/dL [facility] Comment on above: GLU FAST 95H (<95) C ol: 08/28/24 0712 GLU 1HR 174 (<180) Col: 08/28/24 0814 GLU 2HR 173H (<155) Col: 08/28/24 0916 GLU 3HR 114 (<140) Col: 08/28/24 1018 Interpretation and review of laboratory results Abnormal [facility] Urinalysis macro (dipstick) panel (U)on 08-21-2024 Bilirubin, UA Negative Negative - 4(70) +++ mg/dL [facility] Blood, UA Negative Negative - 50 Duane/mcL [facility] Clarity, UA Clear [facility] Color, UA Yellow [facility] Glucose, UA Negative Negative - 1999(110) ++++ mg/dL [facility] Interpretation and review of laboratory results Abnormal [facility] re Ketones, UA Positive Negative - 160(16) ++++ mg/dL [facility] Leukocytes, UA Moderate Negative - 500+++ Belinda/mcL [facility] Nitrite, UA Negative Negative - Positive [facility] pH, UA 7 5 - 9 [facility] e Protein, UA Negative Negative - 1999(20) ++++ mg/dL [facility] Spec Grav, UA 1.02 1 - 1.03 [facility] Urobilinogen, UA 0.2 0.2 - 12 mg/dL [facility] Urinalysis macro (dipstick) panel (U)on 08-05-2024 Bilirubin, UA Negative Negative - 4(70) +++ mg/dL [facility] Blood, UA Negative Negative - 50 Duane/mcL [facility] Clarity, UA Clear [facility] Color, UA Yellow [facility] Glucose, UA Negative Negative - 1999(110) ++++ mg/dL [facility] Interpretation and review of laboratory results [facility]normal [facility] Ketones, UA Negative Negative - 160(16) ++++ mg/dL [facility] Leukocytes, UA Trace Negative - 500+++ Belinda/mcL [facility] Nitrite, UA Negative Negative - Positive [facility] pH, UA 6 5 - 9 [facility] Protein, UA Positive Negative - 1999(20) ++++ mg/dL [facility] Spec Grav, UA 1.025 1 - 1.03 [facility] Urobilinogen, UA 1.0 0.2 - 12 mg/dL [facility] Urine Cultureon 07-30-2024 Bacteria identified Cx Nom (U) >100,000 colonies/ml mixed bacterial skin contaminants 2 Days PERFORMED BY: [place] [address] PATHOLOGIST [employer]ING BROKER FRANCIA GÓMEZ M.D. Normal [facility] Comment on above: Performed By: #### C UU #### [address] GLUCOSE 1 HOURon 07-16-2024 Glucose [Mass/Vol] 157 mg/dL High NINF - 13 0 mg/dL [facility] Interpretation and review of laboratory results Abnormal [facility] Urinalysis macro (dipstick) panel (U)on 06-26-2024 Bilirubin, UA Negative Negative - 4(70) +++ mg/dL [facility] Blood, UA Negative Negative - 50 Duane/mcL [facility] Healthcare Clarity, UA Clear [facility] Color, UA Yellow [facility] Glucose, UA Negative Negative - 1999(110) ++++ mg/dL [facility] Interpretation and review of laboratory results Abnormal [facility] Ketones, UA Negative Negative - 160(16) ++++ mg/dL [facility] Leukocytes, UA Trace Negative - 500+++ Belinda/mcL [facility] Nitrite, UA Negative Negative - Positive [facility] pH, UA 7.5 5 - 9 [facility] Protein, UA Negative Negative - 1999(20) ++++ mg/dL [facility] Spec Grav, UA 1.02 1 - 1.03 [facility] Urobilinogen, UA 0.2 0.2 - 12 mg/dL [facility] ECHOCARDIOGRAM FETALon 05-31 ECHOCARDIOGRAM [facility] [address] [place] [id number] ECHOCARDIOGRAM REPORT Name: JUAN DIEGO FULTON : 2000 ALT. ID: Age: 23 years Study Date: 05/31/2024 12:45:12 PM Patient Class: Outpatient Patient Location: [facility] Referring Physician: [facility] Diagnosing Physician: [id number] Meenu Reed MD Knotting Machine Operator Portable: Marita Ko [facility] Procedure type: Complete [id number], Complete Doppler and Spectral Doppler-28952, Color Doppler-41825, Umbilical Doppler-74951 and Multiple Gestation (Twins). Reason for test: [...] and Pulm (more content not included)... Normal [facility] Urinalysis macro (dipstick) panel (U)on 04-09-2024 Bilirubin, UA Negative Negative - 4(70) +++ mg/dL [facility] Blood, UA Negative Negative - 50 Duane/mcL [facility] Clarity, UA Clear [facility] re Color, UA Yellow [facility] e Glucose, UA Negative Negative - 1999(110) ++++ mg/dL [facility] Interpretation and review of laboratory results Abnormal [facility] re Ketones, UA Negative Negative - 160(16) ++++ mg/dL [facility] Leukocytes, UA Positive Negative - 500+++ Belinda/mcL [facility] Comment on above: large Nitrite, UA Negative Negative - Positive [facility] pH, UA 7 5 - 9 [facility] e Protein, UA Trace Negative - 1999(20) ++++ mg/dL [facility] Spec Grav, UA 1.02 1 - 1.03 [facility] Urobilinogen, UA 0.2 0.2 - 12 mg/dL [facility] e ALL CBC WITH AUTO DIFFon BASOPHILS ABSOLUTE AUTO 0 [facility] Basophils/100 WBC (Bld) 0.3 % 0.2 - 2.0 % [facility] Eosinophils/100 WBC (Bld) 0.9 % 0.9 - 7.0 % [facility] Erythrocyte distribution width (RBC) [Ratio] 14.1 % 11.0 - 15.0 % [facility] IMMATURE GRANULOCYTES ABS AUTO 0.05 High [facility] Immature granulocytes/100 WBC (Bld) 0.4 % 0.0 - 0.5 % [facility] Interpretation and review of laboratory results Abnormal [facility] re LYMPHOCYTES ABSOLUTE AUTO 2.6 [facility] Lymphocytes/100 WBC (Bld) 18.5 % Low 20.5 - 60.0 % [facility] MCH (RBC) [Entitic mass] 25.9 pg Low 26.7 - 34.0 pg [facility] MCHC (RBC) [Mass/Vol] 32.7 g/dL 29.9 - 35.2 g/dL [facility] MCV (RBC) [Entitic vol] 79.2 fL Low 81.0 - 99.0 fL [facility] MONOCYTES ABSOLUTE AUTO 0.6 [facility] Monocytes/100 WBC (Bld) 4 % 1.7 - 12.0 % [facility] NEUTROPHILS ABSOLUTE AUTO 10.7 High [facility] Neutrophils/100 WBC (Bld) 75.9 % High 43.0 - 75.0 % [facility] Platelet mean volume (Bld) [Entitic vol] 11.7 fL 9.5 - 13.5 fL [facility] TBH EO # 0.1 [facility] TB PLT 302 [facility] e TB RBC 4.56 [facility] e TB WBC 14.1 High [facility] CBC without diffon Rbc Mcv (Fl) By Automated Count 79.2 [facility] - Hematology and Cell countson 03-15-2024 Hematocrit (Bld) [Volume fraction] 36.1 % [facility] e Hemoglobin (Bld) [Mass/Vol] 11.8 g/dL [facility] No Panel Informationon 03-15 [facility] e Rubella IGG immune statuson 03-15-2024 Rubella immune IgG 0.9 [facility] Syphilis Total(Unknown Syphi lis Status)on 03-15-2024 Syphilis Non-Reactive [facility] Type and screenon 03-15-2024 Abo/Rh(D) Negative [facility] HCG ( test) Ql (U)o n 03-08-2024 Interpretation and review of laboratory results Abnormal [facility] re Preg Test, Ur Positive Negative [facility] care [facility] Urinalysis macro (dipstick) panel (U)on 03-08-2024 Bilirubin, UA Negative Negative - 4(70) +++ mg/dL [facility] Blood, UA Negative Negative - 50 Duane/mcL [facility] Clarity, UA Clear [facility] re Color, UA Yellow [facility] Glucose, UA Negative Negative - 1999(110) ++++ mg/dL [facility] Interpretation and review of laboratory results Abnormal [facility] re Ketones, UA Negative Negative - 160(16) ++++ mg/dL [facility] Leukocytes, UA Moderate Negative - 500+++ Belinda/mcL [facility] Nitrite, UA Negative Negative - Positive [facility] pH, UA 7 5 - 9 [facility] Protein, UA Negative Negative - 1999(20) ++++ mg/dL [facility] Spec Grav, UA 1.015 1 - 1.03 [facility] Urobilinogen, UA 0.2 0.2 - 12 mg/dL [facility] Referrals Officeon 3 Referrals Office [id number] [phone] [id number]# 1.00CD:127 Normal [facility] CULTURE URINEon 03-13-2022 CULTURE URINE Culture Observations : HEAVY GROWTH OF MIXED GENITAL TING. NO POTENTIAL PATHOGENS SEEN. Normal [facility] Comment on above: Performed By: #### C MP #### [facility] [address] [place] [address] Dr. Paz Burk ER URINE PROFILEon 3 Bilirubin Ql (U) Negative Normal NEGATIVE [facility] Comment on above: Performed By: #### P PEGGY HERNANDEZ ERUR #### [facility] [address] [place] [address] Dr. Paz Burk Clarity (U) CLEAR Normal CLEAR [facility] Comment on above: Performed By: #### P PEGGY HERNANDEZ ERUR #### [facility] [address] [place] [address] Dr. Paz Burk Color (U) LT. YELLOW Normal YELLOW [facility] Comment on above: Performed By: #### P REGU, UMICRO, ERUR #### [facility] [address] [address] [address] Paz POST A micrscopic examination will be performed if indicated. Normal [facility] Comment on above: Performed By: #### P REGU, UMICRO, ERUR #### [facility] [address] [address] [address] Paz Burk Glucose Ql (U) Negative Normal NEGATIVE [facility] Comment on above: Performed By: #### P REGU, UMICRO, ERUR #### [facility] [address] [address] [address] Paz Burk Hemoglobin Ql (U) Negative Normal NEGATIVE [facility] Comment on above: Performed By: #### P REGU, UMICRO, ERUR #### [facility] [address] [address] [address] Paz Burk Ketones Ql (U) Negative Normal NEGATIVE [facility] Comment on above: Performed By: #### P REGU, UMICRO, ERUR #### [facility] [address] [address] [address] Paz Burk LEUKOCYTES MODERATE Abnormal NEGATIVE [facility] Comment on above: Performed By: #### P REGU, UMICRO, ERUR #### [facility] [address] [address] [address] Paz Burk Nitrite Ql (U) Negative Normal NEGATIVE [facility] Comment on above: Performed By: #### P REGU, UMICRO, ERUR #### [facility] [address] [address] [address] Paz Burk pH (U) 6.0 [pH] Normal 5-9 [facility] Comment on above: Performed By: #### P REGU, UMICRO, ERUR #### [facility] [address] [address] [address] Paz Burk SPEC GRAVITY 1.025 Normal 1.005-<=1.025 [facility] Comment on above: Performed By: #### P REGU, UMICRO, ERUR #### [facility] [address] [place] [address] Dr. Paz Burk UA PROTEIN Negative Normal NEGATIVE/ TRACE [facility] Comment on above: Performed By: #### P REGU, UMICRO, ERUR #### [facility] [address] [place] [address] Dr. Paz Burk UR MICRO IND INDICATED Normal [facility] Comment on above: Performed By: #### P REGU, UMICRO, ERUR #### [facility] [address] [place] [address] Dr. Paz Burk Urobilinogen Qn (U) 0.2 {Ara'U}/dL Normal 0.2 - 1. 0 [facility] Comment on above: Performed By: #### P REGUVERONICAICRO, ERUR #### [facility] [address] [place] [address] Dr. Paz Burk URon 03-13-2022 , QUAL Negative Normal NEGATIVE [facility] Comment on above: Performed By: #### P REGUVERONICAICRO, ERUR #### [facility] [address] [place] [address] Dr. Paz Burk URINE MICROSCOPIC ONLYon BACTERIA MODERATE Abnormal NONE SEEN [facility] Comment on above: Performed By: #### P REGU UMICRO, ERUR #### [facility] [address] [place] [address] Dr. Paz Burk Bacteria identified Cx Nom (U) INDICATED Normal [facility] Comment on above: Performed By: #### P REGU UMICRO, ERUR #### [facility] [address] [place] [address] Dr. Paz Burk CAST NONE SEEN Normal NONE SEEN [facility] Comment on above: Performed By: #### P REGU, UMICRO, ERUR #### [facility] [address] [place] [address] Dr. Paz Burk Crystals LM Nom (Urine sed) NONE SEEN Normal NONE SEEN [facility] Comment on above: Performed By: #### P REGUVERONICAICRO, ERUR #### [facility] [address] [place] [address] Dr. Paz Burk Epithelial cells LM Ql (Urine sed) MODERATE Abnormal NONE SEEN /RARE [facility] Comment on above: Performed By: #### P REGUVERONICAICRO, ERUR #### [facility] [address] [address] [address] Paz Burk MUCOUS TRACE Abnormal NONE SEEN [facility] Comment on above: Performed By: #### P VERONICA HERNANDEZICHAILE, ERUR #### [facility] [address] [place] [address] Dr. Paz Burk RBC 0-2 Normal 0-2 [facility] Comment on above: Performed By: #### P REGPEGGY Pham, ERUR #### [facility] [address] [place] [address] Dr. Paz Burk WBC 50-75 Abnormal NONE SEEN [facility] Comment on above: Performed By: #### P VERONICA HERNANDEZICRO, ERUR #### [facility] [address] [place] [address] Dr. Paz Burk Coding Summary.on 03-04-2022 Coding Summary. CD:[id number] G h0bWw+PGhlYWQ+FY8BOEX kQ45yyZVsvT8ZG7wEAH5D UVJJNUYIBY0YIZ8scKR1V OlqJ5LvhmWt EqpldPRfQH23RUe9SFY8p VmuKHfloD8xxSMdI5n6Uq NnFU13wT91ZNjoHZKuYbZ 3LjZpbjsgbWFy R5xuZoSdbXDwEsl+PHRhY mxlIHdpZHRoPScxMDAlJy QukCreFG4kPl0tBCSnAZZ vbGxhcHNlOiBj q8wcDEZgOSutSQ3kyBpxU 3UazZO2JDDfp7u4Ty19mS I+MBVhKVT1bBpaJYzsh55 8RtPmz8ywMAS8 eDBtWRjmLPD4C55ul3H1O ISeSZEcLTF4hGB5iF5ajY jqylzoW9JmvTTcEwP2MJU 2fRFsrI2noOgg zfhgeT6sZpo+D65JFE4FB RIYCC1GQlf7F8YyPknwdU I+CE62DIWoRG86dQUnlTD fb0hhuLi0UlLk BYPiBTW2sWseRNnra0SfP YLcJ25juCOvk1S4HCYppY ijcYWwWzKjvEN5dS6qFCk omswbd2mrmjuu Xrrnx6dtix94vZ06Q14gA QjcKUDaOXL5PWJaQXTliG zrfg9zaC4lFa1+QZbct6e pg8fopOs5TnQl AZCxuvOufMgzHOX2c8PgN n55M1EzsZpti7HfXvs9sj 23eUTyu0J9mXC3JApaZMK chA8wUQptCiS2 AUPyPqDgbX64nVBtLApxG l2ioPiavTeqZG2xVGOlcg rjPAVnqM9eTGIgpOGoeId zUG9gYIYgxyvv e593UhAeBHJ0RJRqzEUiO 4NgcA5eKeKbYHKjXQWuH5 QfwTKeKWpfZ170IYrhLiB 3TCBoxtTeN0Yu SXPdgDptRfE1r0A1Uu7Vd 3AqoxibDWB2PCulLVBrAn C8CqIeJjC4A8XnOmb0NZQ kkQdxND9lY0Nr YMKhttwbmjzcvNK9BXEjW CMkjW08bSLnVVeuZo9zk3 Q5r333BRXiDXIdrA40Oz4 udDogMTBwdCBU tL0lprdlk3zqslfjJuJoR PLaYCo2UMh8NQDzqFnkWr MbNYW8ArB7LPR4gUOgjQ9 owEskcmaahZ0k Oyc+L48erE7zJYP7KJK4u nvgOMJdmkMuAY34VM33N3 RyPjwvdGFibGU+PGRpdiB mhWnxZN4iRjVn j9ejm5UuGOlmE4KlTBItS HtdGtr2LKKjCTW9gNZ7xL 6lREMdJZlgi9D4bLI3B7G qywYbbc4kt1kb HTIcRQzeP17jbBJzt6J1L KDaaNO9EUPjhClrQcChlY 93Oyc+FDXvdUqpe7UnLgr lr6vsf0lpwWk2 JjTqFMIehqBxrAonBOF9l 4FiTm35E68iMUahLWIlLG IsNZWiRDGytNvfji0rdJ6 wIi8+PGNvbCB3 dHG0xQ1qMUEqDjZ1RTgaA 173BpQulDJaOcsgj3vny5 dlbYw3JmIdJYGlaaYugGs xHBR0b7RmFc09 M78uOAbcGXYuUMAhUZEmG UPrsAblou1wwL2tIt3+PC 4yv2npqa08rG76vFT+PHR uPPV3pVxcBSjw DGOegM4eKVmfBhK0ADQeE zTjaD76bYWqWQpvVl3ucP jvxZqfWL8xXQDmzeiha86 7OaZgq1ptRNGn lNApPEtkYDS8F61pf0E1Y FAnSCEcPCA6wGP3xU6bcU lnbjogbGVmdDsgdmVydGl tDDspEIkjH360 IHRvcDsnPlBhdGllbnQgT fHsOIq3A7FbRzn0GGZdrP mpMT1icERxECiwVk4dwUl knRbvDP4tRIXk pixym279DjQxt4hfMMRyd ZKnLYhmMGZ9E65ne5W4AM MrASRqOYA6oQM8sS9vuFf nbjogbGVmdDsg fvNsmWnaRGwwAIvsF500C HRvcDsnPkJpcnRoIERhdG U9RT67JP89pALdq4R2wCY 3K5FrGNBjedpy tpsckIA0MMZcGZUwnZ57E n6dxGsrXz9fUJWaWJX0UY VisCRvQ7PqoD3qNjFsSPF yXZJqE7HsuEGb YBabF426QNdpAvZ3QMAvf gHbO7HmMOEesMzmStR5h7 A8Wq8EM6E8VE72FJ12cSC yc1O7iVS5C1Nz CBDcnamqdllksLA8ORGtN CHjkG94Wr3dmHghXf5mZN BgYYN2ZBEwyFQiY3GeoA1 yOiAjMDAwMDAw I3GsvDBlZWhsW790YQlwJ xK3ETKbpvKaY1WyPUVazL sxGtA9u8P0Pk3SGAx0WI1 0PB89zQSoa5B2 oZF7C9FvMCKgiivriblxz PM8RKOiXSWqqX74Gw5hnS itIs8oKVChOUN5QDFrcLT aR8ScdM4kDfKp YPXjJDDuS5CvwWAhHKpzC 754EVurLxF7ZVMtegKxE1 TxIYVaaGryHaA9k2Z1Ur5 AIQDuRV65QNZ4 fDL3JT20KH92K5PlOmdro GFibGU+PHRhYmxlIHdpZH RoPScxMDAlJyBzdHlsZT0 kIn9mHQZqKNNw zQhqaUHjYdZtd9wtPXYhM DggZF8xdFaxX5HdvGB1OO Yit8m1Mt24J33vM1KclJE +FBIeuYU2hVC9 xX6zOiSzOfM9SVmzF117T pPelAJhXjmop4azx5qcnT m8VxA9TQIyfpGdvOhgFCN 0p4JaZs69E92u IHdpZHRoPSIxNSUiIHZhb Cxowb4iuN5hIz1+PGNvbC S7dKL1sA7eGvAeYpX2LDu uY826ZbFwtQYj Ghqgd0sly5tvyQr3WsKvK IMoraRzlGtrWTH9o0UpGd 31Q3PoqIxrt4UvZoo0yr1 0cUSox8P1lBB9 T3AzDQYrerahlBGbdQfjU Y0kBCNcbhenDBFuiJ1eAT TvH9p2TyLuAcM5PQgcK0U slxY8LHBwjOJa KLzuDEO1W02xs0G3ZVVzM CWzEMP4nPU1sD1djVqubx ogbGVmdDsgdmVydGljYWw mDQrrO695VHJx mXsrKTTmuA8iDCMvxUFil UguBU9hKGFenkagTgVOJL 2jOJxPZj7KUlFhVtyknXH +ELBeZSU9yDeq WDryIZKdiS9mETOoR3z1M kWjTdU6CMhlX4NiMQXbhy ykSr07mI8dIzMgQoM5ZKb cG2QlfvF8UAOp fQIfDJmmZSZ0M53ji7W0K TVdSWLcVMM5pFN2fN9haU lnbjogbGVmdDsgdmVydGl tCTiaTScgQ773 XUBlvVfoRlN0NcK1PmT7G Rv2M4RpNas4OKWzxBioEE 7mjYAwBDfiNg0uqIckpLm vMO8tSVYqfndb VEOanA7mLPOokJLddPtgD Q7yFPFsehgqh327UsAoEV R0BBHtiBNdM4NmnI3lVcG sGRCbBLRpR3Yc lFHuTGelO210RXekYnN5Z SUyjfLgH3GeCMUucRpfCq G5o9K6Ob8gZgAFWKRgsay vdGQ+PHRkIHN0 pVlkJFctWFLyvO4wIMYnM 1k3OyFpXyJ6DKzeN5NxPH TymtkpDs91fH1bAyPeHnN 0NOddH8EwdbD3 XQQliYSsMBiwTGT4D77yu 2K0TQBbEBSrFJO6bXY3qJ 1hbGlnbjogbGVmdDsgdmV ydGljYWwtYWxp W661MCHoxHfcIsEaxEFxI TwvdGQ+QVLnPMP1zIlyXX kgBXNatM9vIMTkJ7b5TnT bYzA1XEdtG4Zh GJKpsyshVd67xM9dYmKbZ yW1VTlwJ3YwajX2BBHvyP SsHZreKYT3Y63bl1L6VVU oCXNuPQU6wEP3 uL6syRhjljmdeBTfnSrhd uNyrFmwIBojSDymK332DA TumVxiMd52fIVlpWxsssL 4F1XqMiegsOA+ GP73BWBuGI95sYRsvCJxw 5lhaGp2ZqPkNZScKTN2hL egIVqvm7QnJKDtR41wdVA bu3A4FWZupRco cFInCbGpwOO0jG5mLOead nclf7apyeavRjhvs4bvhv 97cC75T69qTWoxTPLnHXA zMCUiIHZhbGln jr5rhT6aQb7+HKEuqAC0o CW0rB5qIdEcCaS8VPvpD4 57LyBzqVZqVoghc0eye0i fjWw0YwEiCBXg kzUbsNnpMBZ7n0YyBy38V 29sIHdpZHRoPSIyMCUiIH DjdBnwcp8chM4nCk4+PC9 cy6szqa60kJ51 dHI+PJDlFAM7kHlaWBfkK VSyrA4vHHffVdB3QFZvSa WnoT16gEFwTWnhGy1jdYp ufXaiVA9nGAGe nfwbn524FhMox9znKVNsr NAnWJswMIP9H87xp2H1UG KaBEUySGS6dVG8dY6jlGl nbjogbGVmdDsg pcRmpNqcEPfrLOlpG298L MLmxTzmGmPsgPCsB4olkq LUWS2vQsscnBB+PHRkIHN 0eWxlPSdwYWRk uI2gLRWfS0p2TtWvInJ5L VfwQ7CqylJ7OLOsqSDaRG WpmOBGwQ7noqnko3udjgu gIzAwMDAwMDt0 WWn5GAQjrJdqVbCnZBS4J uG0XGT3eVKnbA0chZweqi yfcN9fWba+RklOOjwvdGQ +POTxWPC6iQii BJqmDBPboF4tSPUvA0m1K vHdYtU4YCqvM1GnzjF6IW MjqQSfDVRzbDKSxU8ojod om5hmwyhfDtDm YDWzZKq4XXb8LROqxFbtM iAqICB5IbF2ULW6bDTaeC 2dwNcdvmmvoD5oXnv+TVJ OOjwvdGQ+PHRk EXD7yAkuZFhiBFAwrL4bR KAnK2c5YjSaToG3QPdnB6 XsxvF6MDRfyTGhXVNqkQJ IiO4yhgckq9yr sdvxBzMiIJYkGLi0BNh5Y VTlqJtfBuFrKFL1YoJ3HI S0dPHksQ3mnFrouscwmR7 wOyc+KLM8LJR2 LA01CA75Q5QrKfflkKYej +PHRhYmxlIHdpZHRoPS ciBLElZsAsxKirUY2nXo8 yZGVyLWNvbGxh cHNl (more content not included)... Normal [facility] Consent for Treatmenton Consent for Treatment [id number] Normal [facility] Covid-19 PCR (CVDTB)on 01-28 SARS-CoV-2 (COVID-19) RNA IGNACIO+probe Ql (Unsp spec) Not detected Normal NOT DETECTED [facility] Comment on above: Result Comment: This test is not yet approved or cleared by the [place] FDA. When there are no FDA-approved or cleared tests available, and other criteria are met, FDA can make tests available under an emergency access mechanism called an Emergency Use Authorization (EUA). The EUA for this test is supported by the [employer]st of Health and Human Service's (HHS's) declaration [...] SARS-CoV-2. Performed By: #### C VDTB #### [facility] [address] [place] [address] Dr. Paz Burk INFLUENZA A AND B AGon 02[facility] Normal [facility] Comment on above: Result Comment: Nega tive for Flu A protein angiten. Infection due to Flu A cannot be ruled out. Flu A angiten in the sample may be below the detection limit of the test. Performed By: #### I NFLUAB #### [facility] [facility] [address] [place] [address] Dr. Paz Burk [facility]FL[facility]BN[facility]ALTH SEE BELOW Normal [facility] Comment on above: Result Comment: Nega tive for Flu B protein antigen. Infection due to Flu B cannot be ruled out. Flu B antigen in the sample may be below the detection limit of the test. Performed By: #### I NFLUAB #### [facility] [address] [place] [address] Dr. Paz Burk INFLUENZA A AG Negative Normal NEGATIVE SEE COMMENT [facility] Comment on above: Performed By: #### I NFLUAB #### [facility] [address] [place] [address] Dr. Paz Burk INFLUENZA B AG Negative Normal NEGATIVE SEE COMMENT [facility] Comment on above: Performed By: #### I NFLUAB #### [facility] [address] [place] [address] Dr. Paz Burk Physician Orderon 02-14-2022 Physician Order [id number] Normal [facility] BNPon 01-20-2022 Natriuretic peptide B (Bld) [Mass/Vol] 125.0 pg/mL Normal <=450.0 [facility] Comment on above: Performed By: #### C VDTBH #### [facility] [address] [place] [address] Dr. Paz Burk CBC AUTO DIFFon 01-20-2022 BASO # 0.0 103/ul Normal 0.0-0.1 [facility] Comment on above: Performed By: #### C BC #### [facility] [address] [place] [address] Dr. Paz Burk Basophils/100 WBC (Bld) 0.2 % Normal 0.2-2.0 [facility] Comment on above: Performed By: #### C BC #### [facility] [address] [place] [address] Dr. Paz Burk EO # 0.2 103/ul Normal 0.0-0.7 [facility] Comment on above: Performed By: #### C BC #### [facility] [address] [place] [address] Dr. Paz Burk Eosinophils/100 WBC (Bld) 1.2 % Normal 0.9-7.0 [facility] Comment on above: Performed By: #### C BC #### [facility] [address] [place] [address] Dr. Paz Burk Erythrocyte distribution width (RBC) [Ratio] 14.4 % Normal 11.0-15.0 [facility] Comment on above: Performed By: #### C BC #### [facility] [address] [place] [address] Dr. Paz Burk Hematocrit (Bld) [Volume fraction] 37.3 % Normal 36.0-48.0 [facility] Comment on above: Performed By: #### C BC #### [facility] [address] [place] [address] Dr. Paz Burk Hemoglobin (Bld) [Mass/Vol] 12.3 g/dL Normal 12.0-16.0 [facility] Comment on above: Performed By: #### C BC #### [facility] [address] [place] [address] Dr. Paz Burk IG # 0.07 10e3/ul Critically high 0.00-0.03 [facility] Comment on above: Performed By: #### C BC #### [facility] [address] [place] [address] Dr. Paz Burk IG % 0.5 % Normal 0.0-0.5 [facility] Comment on above: Performed By: #### C BC #### [facility] [address] [place] [address] Dr. Paz Burk LYMPH # 3.0 103/ul Normal 1.2-3.8 [facility] Comment on above: Performed By: #### C BC #### [facility] [address] [place] [address] Dr. Paz Burk Lymphocytes/100 WBC (Bld) 21.2 % Normal 20.5-60.0 [facility] Comment on above: Performed By: #### C BC #### [facility] [address] [place] [address] Dr. Paz Burk MANUAL DIFF REQ NO Normal [facility] Comment on above: Performed By: #### C BC #### [facility] [address] [place] [address] Dr. Paz Burk MCH (RBC) [Entitic mass] 26.8 pg Normal 26.7-34.0 [facility] Comment on above: Performed By: #### C BC #### [facility] [address] [place] [address] Dr. Paz Burk MCHC (RBC) [Mass/Vol] 33.0 g/dL Normal 29.9-35.2 [facility] Comment on above: Performed By: #### C BC #### [facility] [address] [address] [address] Paz Burk MCV (RBC) [Entitic vol] 81.3 fL Normal 81.0-99.0 [facility] Comment on above: Performed By: #### C BC #### [facility] [address] [address] [address] Paz Burk MONO # 0.7 103/ul Normal 0.3-0.8 [facility] Comment on above: Performed By: #### C BC #### [facility] [address] [address] [address] Paz Burk Monocytes/100 WBC (Bld) 4.8 % Normal 1.7-12.0 [facility] Comment on above: Performed By: #### C BC #### [facility] [address] [address] [address] Paz Burk NEUT # 10.3 103/ul Critically high 1.4-6.5 [facility] Comment on above: Performed By: #### C BC #### [facility] [address] [address] [address] Paz Burk Neutrophils/100 WBC (Bld) 72.1 % Normal 43.0-75.0 [facility] Comment on above: Performed By: #### C BC #### [facility] [address] [address] [address] Paz Burk Platelet mean volume (Bld) [Entitic vol] 11.2 fL Normal 9.5-13.5 [facility] Comment on above: Performed By: #### C BC #### [facility] [address] [address] [address] Paz Burk PLT 277 103/ul Normal 150-450 [facility] Comment on above: Performed By: #### C BC #### [facility] [address] [address] [address] Paz Burk RBC 4.59 106/ul Normal 4.20-5.40 [facility] Comment on above: Performed By: #### C BC #### [facility] [address] [place], [place] [address] Dr. Paz Burk WBC 14.3 103/ul Critically high 4.0-11.[address] [facility] Comment on above: Performed By: #### C BC #### [facility] [address] [place], [place] [address] Dr. Paz Burk CTA CHEST WO W [...] LUIS DONATO Date: 2022-01-20 03:10 Normal [facility] Covid-19 PCR (CVDTBH)on 12-29 SARS-CoV-2 (COVID-19) RNA IGNACIO+probe Ql (Unsp spec) Not detected Normal NOT DETECTED [facility] Comment on above: Result Comment: When [...] for this test is supported by the Sales Enablement Analyst of Health and Human Service's declaration that [...] used). Performed By: #### C VDTBH #### [facility] [address] [place] [address] Dr. Paz Burk D-DIMERon 01-20-2022 D-DIMER 0.40 mg/L FEU Normal <=0.59 [facility] Comment on above: Performed By: #### C MP #### [facility] [address] [place] [address] Dr. Paz Burk D-DIMER COMMENTS SEE BELOW Normal [facility] Comment on above: Result Comment: Incr [...] hospitalization. Performed By: #### C MP #### [facility] [address] [place] [address] Dr. Paz Burk PREG HCG QUALon 01-20-2022 , QUAL Negative Normal NEGATIVE [facility] Comment on above: Performed By: #### C MP #### [facility] [address] [place] [address] Dr. Paz Burk PROF 14(COMP METB)on 01-20- 022 Albumin [Mass/Vol] 3.3 g/dL Critically low 3.4-5.0 [facility] Comment on above: Performed By: #### C VDTBH #### [facility] [address] [place] [address] Dr. Paz Burk Albumin/Globulin [Mass ratio] 0.8 {ratio} Normal [facility] Comment on above: Performed By: #### C VDTBH #### [facility] [address] [place] [address] Dr. Paz Burk ALP [Catalytic activity/Vol] 95 U/L Normal 46-116 [facility] Comment on above: Performed By: #### C VDTBH #### [facility] [address] [place] [address] Dr. Paz Burk ALT [Catalytic activity/Vol] 15 U/L Normal 14-59 [facility] Comment on above: Performed By: #### C VDTBH #### [facility] [address] [place] [address] Dr. Paz Burk Anion gap [Moles/Vol] 10.4 mmol/L Normal [facility] Comment on above: Performed By: #### C VDTBH #### [facility] [address] [place] [address] Dr. Paz Burk AST [Catalytic activity/Vol] 10 U/L Critically low 15-37 [facility] Comment on above: Performed By: #### C VDTBH #### [facility] [address] [address] [address] Paz Burk Bilirubin [Mass/Vol] 0.1 mg/dL Critically low 0.2-1.0 [facility] Comment on above: Performed By: #### C VDTBH #### [facility] [address] [place] [address] Dr. Paz Burk Calcium [Mass/Vol] 8.8 mg/dL Normal 8.5-10.1 [facility] Comment on above: Performed By: #### C VDTBH #### [facility] [address] [place] [address] Dr. Paz Burk Chloride [Moles/Vol] 105 mmol/L Normal 98-107 [facility] Comment on above: Performed By: #### C VDTBH #### [facility] [address] [place] [address] Dr. Paz Burk CO2 [Moles/Vol] 25.3 mmol/L Normal 21.0-32.0 [facility] Comment on above: Performed By: #### C VDTBH #### [facility] [address] [place] [address] Dr. Paz Burk Creatinine [Mass/Vol] 0.83 mg/dL Normal 0.55-1.02 [facility] Comment on above: Performed By: #### C VDTBH #### [facility] [address] [place] [address] Dr. Paz Burk EGFR-AF CITIZEN [place] >60 Normal >=[address] [facility] Comment on above: Performed By: #### C VDTBH #### [facility] [address] [place] [address] Dr. Paz Burk EGFR-NON AF CITIZEN OF [place] >60 Normal >=60 [facility] Comment on above: Performed By: #### C VDTBH #### [facility] [address] [place] [address] Dr. Paz Burk Globulin (S) [Mass/Vol] 4.1 g/dL Normal [facility] Comment on above: Performed By: #### C VDTBH #### [facility] [address] [address] [address] Paz Burk Glucose [Mass/Vol] 102 mg/dL Normal 74-106 The [facility] Comment on above: Performed By: #### C VDTBH #### [facility] [address] [place] [address] Dr. Paz Burk Potassium [Moles/Vol] 3.7 mmol/L Normal 3.5-5.1 [facility] Comment on above: Performed By: #### C VDTBH #### [facility] [address] [place] [address] Dr. Paz Burk Protein [Mass/Vol] 7.4 g/dL Normal 6.4-8.2 The [facility] Comment on above: Performed By: #### C VDTBH #### [facility] [address] [place] [address] Dr. Paz Burk Sodium [Moles/Vol] 137 mmol/L Normal 136-145 The [facility] Comment on above: Performed By: #### C VDTB #### [facility] [address] [address] [address] Paz Bruk Urea nitrogen [Mass/Vol] 11.0 mg/dL Normal 7.0-18.0 [facility] Comment on above: Performed By: #### C VDTBH #### [facility] [address] [place] [address] Dr. Paz Burk Urea nitrogen/Creatinine [Mass ratio] 13.3 mg/mg Normal [facility] Comment on above: Performed By: #### C VDTBH #### [facility] [address] [place] [address] Dr. Paz Burk TROPONIN, HIGH SENSITIVITYon 01-20-2022 HSTROP 4.2 pg/mL Normal 4.0-51.3 [facility] Comment on above: Result Comment: CUT- OFF POINTS HAVE BEEN ESTABLISHED BASED ON THE FOURTH UNIVERSAL DEFINITIONS OF MYOCARDIAL INFARCTION. THE UPPER REFERENCE LIMIT (URL) OF TROPONIN, DEFINED THE 99TH PERCENTILE OF cTnI DISTRIBUTION IN A REFERENCE POPULATION, HAS BEEN CONFIRMED THE DECISION THRESHOLD FOR WA DIAGNOSIS. Performed By: #### C #### [facility] [address] [place] [address] Dr. Paz Burk HSTROP <4.0 Normal 4.0-51.3 [facility] Comment on above: Result Comment: CUT- OFF POINTS HAVE BEEN ESTABLISHED BASED ON THE FOURTH UNIVERSAL DEFINITIONS OF MYOCARDIAL INFARCTION. THE UPPER REFERENCE LIMIT (URL) OF TROPONIN, DEFINED THE 99TH PERCENTILE OF cTnI DISTRIBUTION IN A REFERENCE POPULATION, HAS BEEN CONFIRMED THE DECISION THRESHOLD FOR [place] DIAGNOSIS. Performed By: #### C VDTBH #### [facility] [address] [place] [address] Dr. Paz Burk XR CHEST 1 Von [...] Cornel QUIÑONES Date: 2022-01-19 23:43 Normal [facility] CBC AUTO DIFFon 12-21-2021 BASO # 0.0 103/ul Normal 0.0-0.1 [facility] Comment on above: Performed By: #### C VDTBH #### [facility] [address] [place] [address] Dr. Paz Burk Basophils/100 WBC (Bld) 0.3 % Normal 0.2-2.0 [facility] Comment on above: Performed By: #### C VDTBH #### [facility] [address] [place] [address] Dr. Paz Burk EO # 0.2 103/ul Normal 0.0-0.7 [facility] Comment on above: Performed By: #### C VDTBH #### [facility] [address] [place] [address] Dr. Paz Burk Eosinophils/100 WBC (Bld) 1.2 % Normal 0.9-7.0 [facility] Comment on above: Performed By: #### C VDTBH #### [facility] [address] [place] [address] Dr. Paz Burk Erythrocyte distribution width (RBC) [Ratio] 14.4 % Normal 11.0-15.0 [facility] Comment on above: Performed By: #### C VDTBH #### [facility] [address] [place] [address] Dr. Paz Burk Hematocrit (Bld) [Volume fraction] 37.7 % Normal 36.0-48.0 [facility] Comment on above: Performed By: #### C VDTBH #### [facility] [address] [place] [address] Dr. Paz Burk Hemoglobin (Bld) [Mass/Vol] 12.0 g/dL Normal 12.0-16.0 [facility] Comment on above: Performed By: #### C VDTBH #### [facility] [address] [place] [address] Dr. Paz Burk IG # 0.06 10e3/ul Critically high 0.00-0.03 [facility] Comment on above: Performed By: #### C VDTBH #### [facility] [address] [place] [address] Dr. Paz Burk IG % 0.4 % Normal 0.0-0.5 [facility] Comment on above: Performed By: #### C VDTBH #### [facility] [address] [place] [address] Dr. Paz Burk LYMPH # 3.1 103/ul Normal 1.2-3.8 [facility] Comment on above: Performed By: #### C VDTBH #### [facility] [address] [place] [address] Dr. Paz Burk Lymphocytes/100 WBC (Bld) 21.8 % Normal 20.5-60.0 [facility] Comment on above: Performed By: #### C VDTBH #### [facility] [address] [place] [address] Dr. Paz Burk MANUAL DIFF REQ NO Normal [facility] Comment on above: Performed By: #### C VDTBH #### [facility] [address] [place] [address] Dr. Paz Burk MCH (RBC) [Entitic mass] 26.1 pg Critically low 26.7-34.0 [facility] Comment on above: Performed By: #### C VDTBH #### [facility] [address] [place] [address] Dr. Paz Burk MCHC (RBC) [Mass/Vol] 31.8 g/dL Normal 29.9-35.2 [facility] Comment on above: Performed By: #### C VDTBH #### [facility] [address] [place] [address] Dr. Paz Burk MCV (RBC) [Entitic vol] 82.0 fL Normal 81.0-99.0 [facility] Comment on above: Performed By: #### C VDTBH #### [facility] [address] [place] [address] Dr. Paz Burk MONO # 0.8 103/ul Normal 0.3-0.8 [facility] Comment on above: Performed By: #### C VDTBH #### [facility] [address] [place] [address] Dr. Paz Burk Monocytes/100 WBC (Bld) 5.9 % Normal 1.7-12.0 [facility] Comment on above: Performed By: #### C VDTBH #### [facility] [address] [place] [address] Dr. Paz Burk NEUT # 10.0 103/ul Critically high 1.4-6.5 [facility] Comment on above: Performed By: #### C VDTB #### [facility] [address] [place] [address] Dr. Paz Burk Neutrophils/100 WBC (Bld) 70.4 % Normal 43.0-75.0 [facility] Comment on above: Performed By: #### C VDTBH #### [facility] [address] [place] [address] Dr. Paz Burk Platelet mean volume (Bld) [Entitic vol] 11.0 fL Normal 9.5-13.5 [facility] Comment on above: Performed By: #### C VDTBH #### [facility] [address] [place] [address] Dr. Paz Burk PLT 308 103/ul Normal 150-450 [facility] Comment on above: Performed By: #### C VDTBH #### [facility] [address] [place] [address] Dr. Paz Burk RBC 4.60 106/ul Normal 4.20-5.40 [facility] Comment on above: Performed By: #### C VDTBH #### [facility] [address] [address] [address] Paz Burk WBC 14.2 103/ul Critically high 4.0-11.[address] [facility] Comment on above: Performed By: #### C VDTBH #### [facility] [address] [address] [address] Paz Burk PROF 14(COMP METB)on 022 Albumin [Mass/Vol] 3.4 g/dL Normal 3.4-5.0 [facility] Comment on above: Performed By: #### C MP #### [facility] [address] [place] [address] Dr. Paz Burk Albumin/Globulin [Mass ratio] 0.8 {ratio} Normal [facility] Comment on above: Performed By: #### C MP #### [facility] [address] [place] [address] Dr. Paz Burk ALP [Catalytic activity/Vol] 86 U/L Normal 46-116 [facility] Comment on above: Performed By: #### C MP #### [facility] [address] [place] [address] Dr. Paz Burk ALT [Catalytic activity/Vol] 26 U/L Normal 14-59 [facility] Comment on above: Performed By: #### C MP #### [facility] [address] [place] [address] Dr. Paz Burk Anion gap [Moles/Vol] 14.6 mmol/L Normal [facility] Comment on above: Performed By: #### C MP #### [facility] [address] [place] [address] Dr. Paz Burk AST [Catalytic activity/Vol] 15 U/L Normal 15-37 [facility] Comment on above: Performed By: #### C MP #### [facility] [address] [place] [address] Dr. Paz Burk Bilirubin [Mass/Vol] 0.2 mg/dL Normal 0.2-1.0 [facility] Comment on above: Performed By: #### C MP #### [facility] [address] [address] [address] Paz Burk Calcium [Mass/Vol] 8.5 mg/dL Normal 8.5-10.1 [facility] Comment on above: Performed By: #### C MP #### [facility] [address] [address] [address] Paz Burk Chloride [Moles/Vol] 104 mmol/L Normal 98-107 [facility] Comment on above: Performed By: #### C MP #### [facility] [address] [address] [address] Paz Burk CO2 [Moles/Vol] 26.5 mmol/L Normal 21.0-32.0 [facility] Comment on above: Performed By: #### C MP #### [facility] [address] [place] [address] Dr. Paz Burk Creatinine [Mass/Vol] 0.88 mg/dL Normal 0.55-1.02 [facility] Comment on above: Performed By: #### C MP #### [facility] [address] [place] [address] Dr. Paz Burk EGFR-AF CITIZEN [place] >60 Normal >=60 [facility] Comment on above: Performed By: #### C MP #### [facility] [address] [place] [address] Dr. Paz Burk EGFR-NON AF CITIZEN [place] >60 Normal >=60 [facility] Comment on above: Performed By: #### C MP #### [facility] [address] [address] [address] Paz Burk Globulin (S) [Mass/Vol] 4.4 g/dL Normal [facility] Comment on above: Performed By: #### C MP #### [facility] [address] [place] [address] Dr. Paz Burk Glucose [Mass/Vol] 116 mg/dL Critically high 74-106 [facility] Comment on above: Performed By: #### C MP #### [facility] [address] [address] [address] Paz Burk Potassium [Moles/Vol] 3.1 mmol/L Critically low 3.5-5.1 [facility] Comment on above: Performed By: #### C MP #### [facility] [address] [place] [address] Dr. Paz Burk Protein [Mass/Vol] 7.8 g/dL Normal 6.4-8.2 [facility] Comment on above: Performed By: #### C MP #### [facility] [address] [address] [address] Paz Burk Sodium [Moles/Vol] 142 mmol/L Normal 136-145 [facility] Comment on above: Performed By: #### C MP #### [facility] [address] [place] [address] Dr. Paz Burk Urea nitrogen [Mass/Vol] 8.0 mg/dL Normal 7.0-18.0 [facility] Comment on above: Performed By: #### C MP #### [facility] [address] [place] [address] Dr. Paz Burk Urea nitrogen/Creatinine [Mass ratio] 9.1 mg/mg Normal [facility] Comment on above: Performed By: #### C MP #### [facility] [address] [place] [address] Dr. Paz Burk PROTIMEon 12-21-2021 INR Coag (PPP) [Relative time] 1.05 {INR} Normal [facility] Comment on above: Performed By: #### P TT, PT #### [facility] [address] [place] [address] Dr. Paz Burk INR GUIDELINES SEE BELOW Normal [facility] Comment on above: Result Comment: NANO RED INR: 2.0 - 3.0 CONDITIONS NOT LISTED BELOW 2.5 - 3.5 FOR PROSTHETIC HEART VALVE REPLACEMENT 2.5 - 3.5 RECURRENT THROMBOSIS Performed By: #### P TT, PT #### [facility] [address] [place] [address] Dr. Paz Burk PT Coag (PPP) [Time] 11.3 s Normal 9.0-11.6 [facility] Comment on above: Performed By: #### P TT, PT #### [facility] [address] [place] [address] Dr. Paz Burk PTTon 12-21-2021 aPTT Coag (Bld) [Time] 32.5 s Normal 22.3-36.2 [facility] Comment on above: Performed By: #### P TT, PT #### [facility] [address] [place] [address] Dr. Paz Burk BLOOD GASES BTYon 11-29-2021 02 MODE ROOM AIR Normal [facility] Comment on above: Performed By: #### C VDTBH #### [facility] [address] [place] [address] Dr. Paz Burk ALLENS TEST Positive [facility] Comment on above: Performed By: #### C VDTBH #### [facility] [address] [place] [address] Dr. Paz Burk Base excess Calc (Bld) [Moles/Vol] 0.7 mmol/L Normal -2.0-2.0 [facility] Comment on above: Performed By: #### C VDTBH #### [facility] [address] [place] [address] Dr. Paz Burk BIPAP PRESSURE Normal [facility] Comment on above: Performed By: #### C VDTBH #### [facility] [address] [place] [address] Dr. Paz Burk CPAP [facility] Comment on above: Performed By: #### C VDTBH #### [facility] [address] [place] [address] Dr. Paz Burk FIO2 Normal [facility] Comment on above: Performed By: #### C VDTBH #### [facility] [address] [place] [address] Dr. Paz Burk HCO3 (Bld) [Moles/Vol] 25.3 mmol/L Normal 22.0-26.0 [facility] Comment on above: Performed By: #### C VDTBH #### [facility] [address] [place] [address] Dr. Paz Burk [facility] Comment on above: Performed By: #### C VDTBH #### [facility] [address] [address] [address] Paz Burk MINUTE VOLUME [facility] Comment on above: Performed By: #### C VDTBH #### [facility] [address] [place] [address] Dr. Paz Burk Oxygen (Bld) [Partial pressure] 96.1 mm[Hg] Normal 80.0-100.0 [facility] Comment on above: Performed By: #### C VDTBH #### [facility] [address] [place] [address] Dr. Paz Burk Oxygen saturation in Blood 99.0 % Normal 95.0-100.0 [facility] Comment on above: Performed By: #### C VDTBH #### [facility] [address] [place] [address] Dr. Paz Burk PCO2 35.8 mmHg Normal 35.0-45.0 [facility] Comment on above: Performed By: #### C VDTBH #### [facility] [address] [place] [address] Dr. Paz Burk PEEP [facility] Comment on above: Performed By: #### C VDTBH #### [facility] [address] [place] [address] Dr. Paz Burk pH (Bld) 7.448 [pH] Normal 7.350-7.450 [facility] Comment on above: Performed By: #### C VDTBH #### [facility] [address] [place] [address] Dr. Paz Burk PIP [facility] Comment on above: Performed By: #### C VDTBH #### [facility] [address] [place] [address] Dr. Paz Burk PS [facility] Comment on above: Performed By: #### C VDTBH #### [facility] [address] [place] [address] Dr. Pza Burk PUNCTURE SITE RR [facility] Comment on above: Performed By: #### C VDTBH #### [facility] [address] [place] [address] Dr. Paz Burk RATE Normal [facility] Comment on above: Performed By: #### C VDTBH #### [facility] [address] [place] [address] Dr. Paz Burk VENT MODE [facility] Comment on above: Performed By: #### C VDTBH #### [facility] [address] [place] [address] Dr. Paz Burk VT [facility] Comment on above: Performed By: #### C VDTBH #### [facility] [address] [place] [address] Dr. Paz Burk CULTURE URINEon 08-21-2021 CULTURE URINE Culture Observations : MODERATE GROWTH OF MIXED GENITAL TING. NO POTENTIAL PATHOGENS SEEN. [facility] Comment on above: Performed By: #### C MP #### [facility] [address] [place] [address] Dr. Paz Burk ER URINE PROFILEon 2 Bilirubin Ql (U) Negative Normal NEGATIVE [facility] Comment on above: Performed By: #### C MP #### [facility] [address] [place] [address] Dr. Paz Burk Clarity (U) CLEAR Normal CLEAR [facility] Comment on above: Performed By: #### C MP #### [facility] [address] [place] [address] Dr. Paz Burk Color (U) LT. YELLOW Normal YELLOW [facility] Comment on above: Performed By: #### C MP #### [facility] [address] [place] [address] Dr. Paz STALLINGSBasim A micrscopic examination will be performed if indicated. [facility] Comment on above: Performed By: #### C MP #### [facility] [address] [place] [address] Dr. Paz Burk Glucose Ql (U) Negative Normal NEGATIVE [facility] Comment on above: Performed By: #### C MP #### [facility] [address] [address] [address] Paz Burk Hemoglobin Ql (U) Negative Normal NEGATIVE [facility] Comment on above: Performed By: #### C MP #### [facility] [address] [place] [address] Dr. Paz Burk Ketones Ql (U) Negative Normal NEGATIVE [facility] Comment on above: Performed By: #### C MP #### [facility] [address] [address] [address] Paz Burk LEUKOCYTES LARGE Abnormal NEGATIVE [facility] Comment on above: Performed By: #### C MP #### [facility] [address] [place] [address] Dr. Paz Burk Nitrite Ql (U) Negative Normal NEGATIVE [facility] Comment on above: Performed By: #### C MP #### [facility] [address] [place] [address] Dr. Paz Burk pH (U) 7.5 [pH] Normal 5-9 [facility] Comment on above: Performed By: #### C MP #### [facility] [address] [place] [address] Dr. Paz Burk SPEC GRAVITY 1.020 Normal 1.005-<=1.025 [facility] Comment on above: Performed By: #### C MP #### [facility] [address] [place] [address] Dr. Paz Burk UA PROTEIN Negative Normal NEGATIVE/ TRACE [facility] Comment on above: Performed By: #### C MP #### [facility] [address] [place] [address] Dr. Paz Burk UR MICRO IND INDICATED Normal [facility] Comment on above: Performed By: #### C MP #### [facility] [address] [place] [address] Dr. Paz Burk Urobilinogen Qn (U) 0.2 {Ara'U}/dL Normal 0.2 - 1. 0 [facility] Comment on above: Performed By: #### C MP #### [facility] [address] [place] [address] Dr. Paz Burk URon 08-21-2021 , QUAL Negative Normal NEGATIVE [facility] Comment on above: Performed By: #### C MP #### [facility] [address] [place] [address] Dr. Paz Burk URINE MICROSCOPIC ONLYon BACTERIA SMALL Abnormal NONE SEEN [facility] Comment on above: Performed By: #### C MP #### [facility] [address] [place] [address] Dr. Paz Burk Bacteria identified Cx Nom (U) INDICATED Normal [facility] Comment on above: Performed By: #### C MP #### [facility] [address] [place] [address] Dr. Paz Burk CAST NONE SEEN Normal NONE SEEN [facility] Comment on above: Performed By: #### C MP #### [facility] [address] [place] [address] Dr. Paz Burk Crystals LM Nom (Urine sed) NONE SEEN Normal NONE SEEN [facility] Comment on above: Performed By: #### C MP #### [facility] [address] [place] [address] Dr. Paz Burk Epithelial cells LM Ql (Urine sed) FEW Abnormal NONE SEEN /RARE [facility] Comment on above: Performed By: #### C MP #### [facility] [address] [place] [address] Dr. Paz Burk MUCOUS NONE SEEN Normal NONE SEEN [facility] Comment on above: Performed By: #### C MP #### [facility] [address] [place] [address] Dr. Paz Burk RBC NONE SEEN Abnormal 0-2 [facility] Comment on above: Performed By: #### C MP #### [facility] [address] [place] [address] Dr. Paz Burk WBC 5-10 Abnormal NONE SEEN [facility] Comment on above: Performed By: #### C MP #### [facility] [address] [place] [address] Dr. Paz Burk Vital Signs Date Time Vital Sign Value Performing Clinician Facility 08-21-2024 13:30-0400 Body mass index (BMI) [Ratio] 51.71 kg/m2 Talya OJEDA Work Phone: [facility] 08-21-2024 13:30-0400 Body weight 145.33 kg Talya OJEDA Work Phone: [facility] 08-21-2024 13:30-0400 Diastolic blood pressure 72 mm[Hg] Talya OJEDA Work Phone: [facility] 08-21-2024 13:30-0400 Systolic blood pressure 120 mm[Hg] Talya OJEDA Work Phone: [facility] 08-05-2024 14:16-0400 Body mass index (BMI) [Ratio] 50.7 kg/m2 Dhruv Jorje DO Work Phone: [facility] 08-05-2024 14:16-0400 Body weight 142.48 kg Dhruv Jorje DO Work Phone: [facility] 08-05-2024 14:16-0400 Diastolic blood pressure 72 mm[Hg] Dhruv Jorje DO Work Phone: [facility] 08-05-2024 14:16-0400 Systolic blood pressure 110 mm[Hg] Dhruv Jorje DO Work Phone: [facility] 07-17-2024 14:16-0400 Body height 167.6 cm Americo Reddy MD Work Phone: [facility] 07-17-2024 14:16-0400 Body mass index (BMI) [Ratio] 50.92 kg/m2 Americo Reddy MD Work Phone: [facility] 07-17-2024 14:16-0400 Body weight 143.02 kg Americo Reddy MD Work Phone: [facility] 07-17-2024 14:16-0400 Diastolic blood pressure 72 mm[Hg] Americo Reddy MD Work Phone: [facility] 07-17-2024 14:16-0400 Heart rate 92 /min Americo Reddy MD Work Phone: [facility] 07-17-2024 14:16-0400 Systolic blood pressure 108 mm[Hg] Americo Reddy MD Work Phone: [facility] 06-26-2024 15:44-0400 Body mass index (BMI) [Ratio] 49.67 kg/m2 Dhruv Jorje DO Work Phone: [facility] 06-26-2024 15:44-0400 Body weight 139.59 kg Dhruv Jorje DO Work Phone: [facility] 06-26-2024 15:44-0400 Diastolic blood pressure 72 mm[Hg] Dhruv Jorje DO Work Phone: [facility] 06-26-2024 15:44-0400 Systolic blood pressure 108 mm[Hg] Dhruv Jorje DO Work Phone: [facility] 06-21-2024 09:02-0400 Body height 167.6 cm Kvng Hugo MD Work Phone: [facility] 06-21-2024 09:02-0400 Body mass index (BMI) [Ratio] 49.67 kg/m2 Kvng Hugo MD Work Phone: [facility] 06-21-2024 09:02-0400 Body weight 139.53 kg Kvng Hugo MD Work Phone: [facility] 06-21-2024 09:02-0400 Diastolic blood pressure 75 mm[Hg] Kvng Hugo MD Work Phone: [facility] 06-21-2024 09:02-0400 Heart rate 91 /min Kvng Hugo MD Work Phone: [facility] 06-21-2024 09:02-0400 Systolic blood pressure 111 mm[Hg] Kvng Hugo MD Work Phone: [facility] 05-27-2024 16:24-0400 Diastolic blood pressure 69 mm[Hg] Kvng Hugo MD Work Phone: [facility] 05-27-2024 16:24-0400 Heart rate 86 /min Kvng Hugo MD Work Phone: [facility] 05-27-2024 16:24-0400 Systolic blood pressure 106 mm[Hg] Kvng Hugo MD Work Phone: [facility] 04-09-2024 11:34-0500 Body mass index (BMI) [Ratio] 45.52 kg/m2 Dhruv Jorje DO Work Phone: [facility] 04-09-2024 11:34-0500 Body weight 127.91 kg Dhruv Jorje DO Work Phone: [facility] 04-09-2024 11:34-0500 Diastolic blood pressure 72 mm[Hg] Dhruv Jorje DO Work Phone: [facility] 04-09-2024 11:34-0500 Systolic blood pressure 116 mm[Hg] Dhruv Jorje DO Work Phone: [facility] 03-08-2024 09:24-0500 Body mass index (BMI) [Ratio] 45.1 kg/m2 [facility] 03-08-2024 09:24-0500 Body weight 126.73 kg N[facility] Nurse [facility] 03-08-2024 09:24-0500 Diastolic blood pressure 70 mm[Hg] [facility] Nurse [facility] 03-08-2024 09:24-0500 Systolic blood pressure 110 mm[Hg] [facility] 06-29-2020 09:02-0400 Body height 167.64 cm Edith Ford Work Phone: [facility] 06-29-2020 09:02-0400 Body mass index (BMI) [Ratio] 48.2 kg/m2 Edith Ford Work Phone: [facility] 06-29-2020 09:02-0400 Body temperature 97.8 [degF] Edith Ford Work Phone: [facility] 06-29-2020 09:02-0400 Body weight 135.65 kg Edith Ford Work Phone: [facility] 06-29-2020 09:02-0400 Diastolic blood pressure 73 mm[Hg] Edith oFrd Work Phone: [facility] 06-29-2020 09:02-0400 Heart rate 69 /min Edith Ford Work Phone: [facility] 06-29-2020 09:02-0400 Respiratory rate 16 /min Edith Ford Work Phone: [facility] 06-29-2020 09:02-0400 SaO2% (BldA) [Mass fraction] 98 % Edith Ford Work Phone: [facility] 06-29-2020 09:02-0400 Systolic blood pressure 130 mm[Hg] Edith Ford Work Phone: [facility] Encounters Encounter Date Encounter Type Care Provider Facility Start: 08-28-2024 End: 08-28-2024 Clinisync Result Encounter Dhruv Jorje DO Work Phone: [facility] Unsolicited Start: 08-28-2024 End: 08-28-2024 Clinisync Result Encounter Dhruv Jorje DO Work Phone: [facility] Unsolicited Start: 08-21-2024 End: 08-21-2024 Bamboo flowsheet Talya OJEDA Work Phone: [facility] Start: 08-21-2024 End: 08-21-2024 Bamboo flowsheet Talya OJEDA Work Phone: [facility] Start: 08-21-2024 End: 08-21-2024 ambulatory TALYA WOODARD Not Available Start: 08-21-2024 End: 08-21-2024 Office outpatient visit 15 minutes Talya OJEDA Work Phone: [facility] Comment on above: 33 weeks gestation o f ([facility]); Third trimester ([facility]); Monochorionic diamniotic twin , antepartum ([facility]); Nonintractable headache, unspecified chronicity pattern, unspecified headache type; Other iron deficiency anemia Start: 08-16-2024 End: 08-16-2024 Telephone encounter Americo Reddy MD Work Phone: [facility] Comment on above: Monochorionic diamni otic twin gestation in third trimester (Primary Dx) Start: 08-15-2024 End: 08-15-2024 ambulatory [facility] Start: 08-05-2024 End: 08-05-2024 Bamboo flowsheet Dhruv [...] Third trimester Start: 07-31-2024 End: 07-31-2024 ambulatory [facility] Start: 07-30-2024 End: 07-30-2024 ambulatory Cici Guadalupe [facility] Work Phone: Start: 07-30-2024 End: 07-30-2024 Departed Referred Cici Guadalupe DO Work Phone: [facility] Start: 07-18-2024 End: 07-18-2024 ambulatory TALYA WOODARD Not Available Start: 07-17-2024 End: 07-17-2024 Office outpatient visit 25 minutes Americo Reddy MD Work Phone: [facility] Comment on above: 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 (Primary Dx) Start: 07-17-2024 End: 07-17-2024 Orders Only Elizabeth Wang RN [facility] Comment on above: Monochorionic diamni otic twin gestation in third trimester (Primary Dx) Start: 07-16-2024 End: 07-16-2024 Clinisync Result Encounter Dhruv Jorje DO Work Phone: [facility] Unsolicited Start: 07-16-2024 End: 07-16-2024 Clinisync Result Encounter Dhruv Jorje DO Work Phone: [facility] Unsolicited Start: 07-05-2024 End: 07-05-2024 ambulatory DHRUV R JORJE [facility] Start: 06-26-2024 End: 06-26-2024 ambulatory DHRUV JORJE [...] Only Lara Borrero RN [facility] Comment on above: 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 (Primary Dx); Echogenic intracardiac focus of fetus on ultrasound; 24 weeks gestation of Start: 06-21-2024 End: 06-21-2024 Telephone encounter Oneida Brunson [facility] Start: 06-21-2024 End: 06-21-2024 Office outpatient visit 25 minutes Kvng Hugo MD Work Phone: [facility] Comment on above: 24 weeks gestation o f (Primary Dx); Monochorionic diamniotic twin gestation in second trimester Start: 06-21-2024 End: 06-21-2024 ambulatory [facility] Start: 06-14-2024 End: 06-14-[address] [facility] Start: 06-12-2024 End: 06-12-2024 Orders Only Elizabeth Wang RN [facility] Comment on above: 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 (Primary Dx); Echogenic intracardiac focus of fetus on ultrasound Start: 06-07-2024 End: 06-07-2024 ambulatory [facility] Start: 05-31-2024 End: 05-31-2024 Office outpatient new 60 minutes Divya Limon M.D. Work Phone: [facility] Comment on above: 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 (Primary Dx) Start: 05-31-2024 End: 05-31-2024 ambulatory MEENU REED [facility] Start: 05-31-2024 End: 05-31-2024 ambulatory NICHOLE HYDE [facility] Start: 05-27-2024 End: 05-27-2024 ambulatory KVNG HUGO [facility] Start: 05-27-2024 End: 05-27-2024 Office outpatient visit 40 minutes Kvng Hugo MD Work Phone: [facility] Comment on above: 20 weeks gestation o f (Primary Dx); Monochorionic diamniotic twin gestation in second trimester; Echogenic intracardiac focus of fetus on ultrasound Start: 05-27-2024 End: 05-27-2024 ambulatory [facility] Start: 05-13-2024 End: 05-13-2024 Orders Only Elizabeth Wang RN [facility] Comment on above: 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 (Primary Dx) Start: 05-10-2024 End: 05-10-2024 ambulatory [facility] Start: 05-07-2024 End: 05-07-2024 ambulatory TALYA WOODARD Not Available Start: 04-26-2024 End: 04-26-2024 Orders Only Lara Borrero RN [facility] Comment on above: 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 (Primary Dx); 16 weeks gestation of Start: 04-11-2024 End: 04-11-2024 Chart abstracting Kvng Hugo MD Work Phone: [facility] Start: 04-10-2024 End: 04-10-2024 Telephone encounter Brittanie Chen LPN [facility] Start: 04-09-2024 End: 04-09-2024 Bamboo flowsheet Dhruv [...] 03-15-2024 End: 03-15-2024 Clinisync Result Encounter Dhruv Recinos DO Work Phone: [facility] Unsolicited Start: 03-08-2024 End: 03-08-2024 Office outpatient visit 5 minutes [facility] Jorje Nurse [facility] Comment on above: GA: 9w2d Start: 03-08-2024 End: 03-08-2024 ambulatory DHRUV RECINOS Not Available Start: 05-08-2022 End: 05-08-[address] DOCTOR MISC Facility:[facility] Start: 03-13-2022 End: 03-13-[address] DOCTOR MISC Facility:[facility] Start: 03-03-2022 End: 03-04-2022 ambulatory Neal Garcia Facility:[facility] Start: 03-03-2022 End: 03-03-2022 Patient encounter procedure Edith Ford [facility] Start: 02-23-2022 End: 02-24-[address] DOCTOR MISC Facility:[facility] Start: 01-20-2022 End: 01-20-[address] DOCTOR MISC Facility:[facility] Start: 12-21-2021 End: 12-21-[address] DOCTOR MISC Facility:[facility] Start: 11-29-2021 End: 11-29-[address] DOCTOR MISC Facility:[facility] Start: 08-21-2021 End: 08-21-[address] DOCTOR MISC Facility:[facility] Start: 06-29-2020 End: 06-29-2020 Emergency department patient visit Edith Ford Work Phone: [facility] Procedures Date Procedure Procedure Detail Performing Clinician Start: 08-28-2024 GLUCOSE TOLERANCE 3 HOUR Dhruv Junioro DO Work Phone: Start: 08-21-2024 Urnls dip stick/tabl et rgnt [...] Dhruv Jorje DO Work Phone: Appendectomy Edith Eugenia n History of tympanostomy tubes in ears Pola Ford Tubes in Ears Edith Tammie on Plan of Treatment Date Care Activity Detail Author Start: 05-08-2027 Screening for malign ant neoplasm of cervix Pap Smear [employer] Start: 08-16-2025 End: 08-16-2025 US MFM with or without consult US MFM with or without consult Imaging Routine Monochorionic 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 Expected: 08/16/2025 (Approximate), Expires: 08/16/2025 [employer] Work Phone: Comment on above: Expected: 08/16/2025 (Approximate), Expires: 08/16/2025 Start: 07-17-2025 Adult BMI Screening Adult BMI Screen ing [facility] Start: 07-17-2025 Tobacco Screening Tobacco Screening [facility] Start: 07-17-2025 End: 07-17-2025 US MFM with or without consult US MFM with or without consult Imaging Routine Monochorionic 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 Expected: 07/17/2025 (Approximate), Expires: 07/17/2025 [employer]iet[facility] Work Phone: Comment on above: Expected: 07/17/2025 (Approximate), Expires: 07/17/2025 Start: 06-24-2025 End: 06-24-2025 US MFM with or without consult US MFM with or without consult Imaging Routine Monochorionic diamniotic twin gestation in second trimester Echogenic intracardiac focus of fetus on ultrasound 24 weeks gestation of Expected: 06/24/2025 (Approximate), Expires: 06/24/2025 [employer]iet[facility] Work Phone: Comment on above: Expected: 06/24/2025 (Approximate), Expires: 06/24/2025 Start: 06-21-2025 Adult BMI Screening Adult BMI Screen ing [facility] Start: 06-21-2025 Tobacco Screening Tobacco Screening [facility] Start: 06-12-2025 End: 06-12-2025 US MFM with or without consult US MFM with or without consult Imaging Routine Monochorionic diamniotic twin gestation in second trimester Echogenic intracardiac focus of fetus on ultrasound Expected: 06/12/2025 (Approximate), Expires: 06/12/2025 [employer] Work Phone: Comment on above: Expected: 06/12/2025 (Approximate), Expires: 06/12/2025 Start: 05-27-2025 Tobacco Screening Tobacco Screening [facility] Start: 05-13-2025 End: 05-13-2025 US MFM with or without consult US MFM with or without consult Imaging Routine Monochorionic diamniotic twin gestation in second trimester Expected: 05/13/2025 (Approximate), Expires: 05/13/2025 [employer] Work Phone: Comment on above: Expected: 05/13/2025 (Approximate), Expires: 05/13/2025 Start: 04-26-2025 Adult BMI Screening Adult BMI Screen ing [facility] Start: 04-26-2025 Tobacco Screening Tobacco Screening [facility] Start: 04-26-2025 End: 04-26-2025 US MFM with or without consult US MFM with or without consult Imaging Routine Monochorionic diamniotic twin gestation in second trimester 16 weeks gestation of Expected: 04/26/2025 (Approximate), Expires: 04/26/2025 [facility] Work Phone: Comment on above: Expected: 04/26/2025 (Approximate), Expires: 04/26/2025 Start: 10-28-2024 AMB SEASONAL FLU VACCINE (Season Ended) AMB SEASONAL FLU VACCINE (Season Ended) [facility] Start: 10-28-2024 Influenza vaccination [facility] Start: 09-11-2024 End: 09-11-2024 Patient encounter procedure 09/11/2024 1:30 PM EDT Appointment [facility] [address] [place] [phone] [facility] Start: 08-29-2024 End: 08-29-2024 Patient encounter procedure 08/29/2024 3:30 PM EDT Appointment [facility] [address] [place] [phone] [facility] Start: 08-28-2024 End: 08-28-2024 Patient encounter procedure 08/28/2024 1:00 PM EDT Routine [facility] [address] [place] [phone] Dhruv Recinos, DO [address] [place] [address] [facility] Start: 08-19-2024 End: 08-19-2024 Patient encounter procedure 08/19/2024 2:30 PM EDT Routine [facility] [address] [place] [phone] Talya Woodard PA [address] [place] [address] [facility] Start: 08-15-2024 End: 08-15-2024 Patient encounter procedure 08/15/2024 11:30 AM EDT Appointment [facility] [address] [place] [phone] [facility] Start: 07-31-2024 End: 07-31-2024 Patient encounter procedure 07/31/2024 3:30 PM EDT Appointment [facility] [address] [place] [address] [facility] Start: 07-30-2024 Urine culture [facility] Start: 07-30-2024 Bacteria identified in Urine by Culture Urine Culture [facility] Start: 07-18-2024 End: 07-18-2024 Patient encounter procedure 07/18/2024 1:30 PM EDT Routine [facility] [address] [place] [phone] Talya Woodard PA [address] [place] [address] [facility] Start: 07-17-2024 End: 07-17-2024 Patient encounter procedure [facility] Start: 07-05-2024 End: 07-05-2024 Patient encounter procedure [facility] Start: 06-27-2024 End: 06-27-2024 Patient encounter procedure 06/27/2024 1:00 PM EDT Appointment [facility] [address] [place] [phone] [facility] Start: 06-26-2024 End: 06-26-2025 CBC panel - Blood by Automated count CBC Lab Routine Diabetes mellitus screening Expected: 06/26/2024 (Approximate), Expires: 06/26/2025 [facility] Work Phone: Comment on above: Expected: 06/26/2024 (Approximate), Expires: 06/26/2025 Start: 06-26-2024 End: 06-26-2025 Measurement of glucose 1 hour after glucose challenge for glucose tolerance test Glucose tolerance, 1 hour Lab Routine Diabetes mellitus screening Expected: 06/26/2024 (Approximate), Expires: 06/26/2025 [facility] Comment on above: Expected: 06/26/2024 (Approximate), Expires: 06/26/2025 Start: 06-26-2024 End: 12-26-2024 US biophysical profile w non stress test US biophysical profile w non stress test Imaging Routine Monochorionic diamniotic twin , antepartum Expected: 06/26/2024 (Approximate), Expires: 12/26/2024 [facility] Comment on above: Expected: 06/26/2024 (Approximate), Expires: 12/26/2024 Start: 06-24-2024 End: 06-24-2024 Patient encounter procedure 06/24/2024 2:30 PM EDT Office Visit [facility] at [facility] [address] [place] [address] Americo Reddy MD [address] [place] [address] [facility] Start: 06-21-2024 End: 06-21-2024 Patient encounter procedure 06/21/2024 11:30 AM EDT Office Visit [facility] [address] [place] [phone] Kvng Hugo MD [address] [address] [facility] Start: 06-21-2024 End: 06-21-2024 Patient encounter procedure 06/21/2024 8:45 AM EDT Appointment [facility] [address] [facility] [place] [phone] [facility] Start: 06-14-2024 End: 06-14-2024 Patient encounter procedure 06/14/2024 2:15 PM EDT Appointment [facility] [place] [address] [place] [address] [facility] [place] Start: 06-07-2024 End: 06-07-2024 Patient encounter procedure 06/07/2024 9:45 AM EDT Appointment [facility] [place] [address] [place] [address] [facility] [place] Start: 05-27-2024 End: 05-27-2024 Patient encounter procedure 05/27/2024 1:00 PM EDT Appointment [facility] [address] [place] [address] [facility] Start: 05-10-2024 End: 05-10-2024 Patient encounter procedure 05/10/2024 1:45 PM EDT Appointment [facility] [address] [place] [phone] [facility] Start: 05-07-2024 End: 05-07-2024 Patient encounter procedure 05/07/2024 9:30 AM EDT Office Visit [facility] [address] [place] [phone] Talya Woodard PA [address] [place] [address] [facility] Start: 04-26-2024 End: 04-26-2024 Patient encounter procedure 04/26/2024 8:45 AM EST Office Visit [facility] [address] [place] [phone] Kvng Hugo MD [address], [address] [place] [address], [place] [address] [facility] Start: 04-26-2024 End: 04-26-2024 Patient encounter procedure 04/26/2024 7:30 AM EST Appointment [facility] [address] [place] [phone] [facility] Start: 04-09-2024 End: 04-09-2024 Patient encounter procedure 04/09/2024 11:20 AM EST Routine [facility] [address] [place] [phone] Dhruv Recinos, DO [address] [place] [address] Arrived [facility] Comment on above: Arrived Start: 04-08-2024 End: 04-08-2024 Patient encounter procedure 04/08/2024 9:20 AM EST Routine [facility] [address] [place] [phone] Dhruv Recinos, DO [address] [place] [address] [facility] Start: 03-08-2024 End: 03-08-2025 ABO/Rh ABO/Rh Lab Routine Missed menses , unspecified gestational age Expected: 03/08/2024 (Approximate), Expires: 03/08/2025 [facility] Comment on above: Expected: 03/08/2024 (Approximate), Expires: 03/08/2025 Start: 03-08-2024 End: 03-08-2025 Blood type and Indirect antibody screen panel - Blood Type and screen Lab Routine Missed menses , unspecified gestational age Expected: 03/08/2024 (Approximate), Expires: 03/08/2025 [facility] Work Phone: Comment on above: Expected: 03/08/2024 (Approximate), Expires: 03/08/2025 Start: 03-08-2024 End: 03-08-2025 Drugs of abuse panel - Urine by Screen method Rapid drug screen, urine Lab Routine , unspecified gestational age Encounter for supervision of normal first in first trimester Expected: 03/08/2024 (Approximate), Expires: 03/08/2025 [facility] Comment on above: Expected: 03/08/2024 (Approximate), Expires: 03/08/2025 Start: 10-29-2023 COVID-19 Vaccine ( season) COVID-19 Vaccine ( season) [facility] Start: 10-29-2023 Influenza vaccination Influenza Vacc ine [facility] Start: 11-27-2021 DTaP,Tdap and Td Vaccines (7 - Td or Tdap) DTaP,Tdap and Td Vaccines (7 - Td or Tdap) [facility] Start: 10-05-2019 Screening for malign ant neoplasm of cervix Pap Smear [facility] Start: 2017 DTaP,Tdap and Td Vaccines (1 - Tdap) DTaP,Tdap and Td Vaccines (1 - Tdap) [facility] Start: 2017 HEPATITIS B IMMUNIZATION (1 of 3 - 19+ 3-dose series) HEPATITIS B IMMUNIZATION (1 of 3 - 19+ 3-dose series) [facility] Start: 2016 Adult BMI Follow Up Plan Adult BMI Follow Up Plan [facility] Start: 2016 Adult BMI Screening Adult BMI Screen ing [facility] Start: 2013 HPV IMMUNIZATION (1 - 3-dose series) HPV IMMUNIZATION (1 - 3-dose series) [facility] Start: 10-05-2011 VARICELLA IMMUNIZATI ON (1 of 2 - 13+ 2-dose series) VARICELLA IMMUNIZATION (1 of 2 - 13+ 2-dose series) [facility] Start: 2010 Depression Screening Depression Scre ening [facility] Start: 2010 Tobacco Screening Tobacco Screening [facility] Start: 2005 DTAP/Tdap/Td IMMUNIZATION (1 - Tdap) DTAP/Tdap/Td IMMUNIZATION (1 - Tdap) [facility] Start: 10-05-1999 MMR IMMUNIZATION (1 of 1 - Standard series) MMR IMMUNIZATION (1 of 1 - Standard series) [facility] Bacteria identified in Urine by Culture Urine culture Microbiology Routine Missed menses Ordered: 03/08/2024 [facility] Comment on above: Ordered: 03/08/2024 CBC W Auto Different ial panel - Blood CBC and differential Lab Routine Missed menses , unspecified gestational age Ordered: 03/08/2024 [facility] Comment on above: Ordered: 03/08/2024 Hemoglobin A1c/Hemoglobin.total in Blood Hemoglobin A1c Lab Routine Missed menses , unspecified gestational age Ordered: 03/08/2024 [facility] Comment on above: Ordered: 03/08/2024 Hepatitis B virus surface Ag [Presence] in Serum or Plasma by Immunoassay Hepatitis B surface antigen Lab Routine Missed menses , unspecified gestational age Ordered: 03/08/2024 [facility] Comment on above: Ordered: 03/08/2024 Hepatitis C virus Ab [Presence] in Serum or Plasma by Immunoassay Hepatitis C antibody Lab Routine Missed menses , unspecified gestational age Ordered: 03/08/2024 [facility] Comment on above: Ordered: 03/08/2024 HIV-1/HIV-2 antigen/antibody combination immunoassay HIV-1 and HIV-2 antibodies Lab Routine Missed menses , unspecified gestational age Ordered: 03/08/2024 [facility] Comment on above: Ordered: 03/08/2024 Patient Education Muscle Strain (ED) [facility] Patient referral [facility] Reagin Ab [Presence] in Serum by RPR RPR Lab Routine Missed menses , unspecified gestational age Ordered: 03/08/2024 [facility] Comment on above: Ordered: 03/08/2024 Rubella antibody, IgG Rubella an tibody, IgG Lab Routine Missed menses , unspecified gestational age Ordered: 03/08/2024 [facility] Comment on above: Ordered: 03/08/2024 Immunizations Immunization Date Immunization Notes Care Provider Fa suze 01-30-2012 influenza virus vaccine, unspecified formulation Lara Borrero RN [employer] [facility] Payers Date Payer Category Payer Self-pay [id number] 2024 Medicaid [facility] Medicaid Address: [address] [place] [id number] 2024 Medicaid HMO [id number] 2023 Private Health Insurance [facility] MEDICAID [id number] 1998 Unknown [id number] 2.16.840.1.318776.3.579.2. 727 1998 Unknown [id number] 2.16.840.1.670643.3.579.2. 593 1998 Unknown [id number] 2.16.840.1.101748.3.579.2. 593 1998 Unknown [id number] 2.16.840.1.305995.3.579.2. 593 1998 Unknown [id number] 2.16.840.1.951391.3.579.2. 593 1998 Unknown [id number] 2.16.840.1.338458.3.579.2. 593 1998 Unknown [id number] 2.840.1.523807.3.579.2. 593 1998 Unknown [id number] 2.16.840.1.159762.3.579.2. 593 1998 Unknown [id number] 2.16.840.1.851967.3.579.2. 1281 1998 Unknown [id number] 2.16840.1.452960.3.579.2. 1281 1998 Unknown [id number] 2.16840.1.934301.3.579.2. 1281 1998 Unknown [id number] 2.16.840.1.052578.3.579.2. 1281 1998 Unknown [id number] 2.16.840.1.163084.3.579.2. 1281 1998 Unknown [id number] 2.16.840.1.572021.3.579.2. 1281 1998 Unknown [id number] 2.16.840.1.203936.3.579.2. 1286 1998 Unknown [id number] 2.16.840.1.616435.3.579.2. 1286 1998 Unknown [id number] 2.16.840.1.727801.3.579.2. 1286 1998 Unknown [id number] 2.16.840.1.615170.3.579.2. 1286 1998 Unknown [id number] 2.16840.1.366843.3.579.2. 1286 1998 Unknown [id number] 2.16840.1.360333.3.579.2. 1286 1998 Unknown [id number] 2.840.1.140920.3.579.2. 128 1998 Unknown [id number] 2.840.1.313043.3.579.2. 128 1998 Unknown [id number] 2.840.1.745317.3.579.2. 128 1998 Unknown [id number] 2.840.1.425176.3.579.2. 1286 1998 Unknown [id number] 2.840.1.880214.3.579.2. 128 1998 Unknown [id number] 2.840.1.307664.3.579.2. 1286 1998 Unknown [id number] 2.840.1.147412.3.579.2. 1286 1998 Unknown [id number] 2.840.1.672068.3.579.2. 1286 1998 Unknown [id number] 2.16840.1.459967.3.579.2. 125 1998 Unknown [id number] 2.16840.1.097720.3.579.2. 1259 1998 Unknown [id number] 2.16840.1.286531.3.579.2. 1259 1998 Unknown [id number] 2.16.840.1.623721.3.579.2. 1259 1998 Unknown [id number] 2.16.840.1.140296.3.579.2. 9 1998 Unknown [id number] 2.16.840.1.002693.3.579.2. 9 1998 Unknown [id number] 2.16.840.1.506805.3.579.2. 1259 1959 Unknown [id number] 1959 Unknown [id number] Unknown [id number] 2.16.840.1.284555.3.579.2. 531 Social History Date Type Detail Facility Start: 06-29-2020 End: 06-29-2023 Tobacco smoking status OHIS Never smoked tobacco (finding) [facility] Start: 2000 Sex Assigned At Female [facility] Tobacco Household tobacc o concerns: Yes. [facility] Tobacco smoking status No Smoking Status Entered [facility] Start: 03-08-2024 End: 07-17-2024 Sex Assigned At Female [facility] Start: 06-29-2023 End: 04-11-2024 Tobacco use and exposure Smokeless tobacco non-user [facility] Start: 03-08-2024 End: 08-21-2024 Alcoholic beverage intake Lifetime non-drinker (finding) [facility] Start: 03-08-2024 End: 07-17-2024 History of Social function [facility] Start: 01-17-2024 [facility] Start: 1998 Sex assigned at Not on file [facility] Tobacco smoking status OHIS Tobacco smoking consumption unknown [facility] Start: 09-30-2014 End: 08-01-2024 Sex Female (finding) [facility] Start: 05-31-2024 Alcoholic beverage intake Ex-drinker (finding) [facility] NEGATED: Highlighted rowStart: IANF History of tobacco use Passive smoker [facility] Goals Date Patient Goal Desired Activity /State Clinical Notes 06-29-2020 to 08-21-2024 Jeannette Kowalski LPN - 08/21/2024 1:00 PM EDTTelephone Encounter - Gillian Beatty - 08/16/2024 1:54 PM EDTTelephone Encounter - Gillian Beatty - 08/16/2024 1:54 PM EDKota Wang RN - 07/17/2024 2:00 PM EDT [...] nursing note reviewed. Exam conducted with a fluid jet cutter operator present. Vitals: Estimated body mass index is 51.71 kg/m as calculated from the following: Height as of 06/02/22: 5' 6 . Weight as of this encounter: 320 lb 6.4 oz. BP: 120/72 Patient's last menstrual period was 01/03/2024. ASSESSMENT & PLAN ICD-10-CM 1. 33 weeks gestation of ([facility]) Z3A.33 POCT urinalysis dipstick manually resulted 2. Third trimester ([facility]) Z34.93 POCT urinalysis dipstick manually resulted 3. Monochorionic diamniotic twin , antepartum ([facility]) O30.039 POCT urinalysis dipstick manually resulted [...] Tracie Kaufman NP documented in this encounter [facility] 08-16-2024 Miscellaneous Notes Hand Former jose providing 7/3 & 716 appt details and requested a return call if she had any issues or concerns. documented in this encounter [facility] 08-16-2024 Telephone encounter Note Hand Former jose providing 7/3 & 716 appt details and requested a return call if she had any issues or concerns. [facility] 08-05-2024 History of Presen t illness Narrative [...] nursing note reviewed. Exam conducted with a fluid jet cutter operator present. Vitals: Estimated body mass index [...] week for routine OB appointment. Continues with [facility] for Ultrasound and twin gestation and doing well. Continues with biweekly NST and weekly BPP. Will plan for celestone at 34 weeks. Documented by Tracie Kaufman NP on behalf of: Dhruv Recinos DO documented in this encounter [facility] 07-17-2024 History of Presen t illness [...] evidence of growth restriction. No evidence of zeqa-az-xkuo transfusion syndrome. Currently the patient has no [...] days., Disp: 30 tablet, Rfl: 6 PNV cmb#95-ferrous fumarate-FA () 28 mg iron- [...] Medical History: Diagnosis Date BMI 45.0-49.9, adult ([facility]) Irregular periods Oligomenorrhea PCOS (polycystic ovarian syndrome) [...] place and person. RECOMMENDATION: 1. Continue serial yycl-mv-qjbw transfusion surveillance at [facility] office. 2. Initiate testing form once a week NST and MELODY starting at 32 weeks gestation until delivery. 3. Patient at the moment is considered low risk and delivery at 37 weeks gestation at her local hospital. 4. Patient understands increased risk of based on twins. Thank you for allowing me to participate in Juan Diegoronny [place] ian. If there are any questions, please do not hesitate to call me. Sincerely, AMERICO REDDY MD documented in this encounter [facility] 07-17-2024 Miscellaneous Notes Addended by: AMERICO REDDY on: 07/25/2024 10:00 AM Modules accepted: Level of Service documented in this encounter [facility] 07-17-2024 Note Addended by: AMERICO PEREIRA on: 07/25/2024 10:00 AM Modules accepted: Level of Service [facility] 06-26-2024 History of Presen t illness Narrative Reason for Appointment: Patient ID: Juan Diego uFlton is a 23 y.o. female who presents [...] nursing note reviewed. Exam conducted with a fluid jet cutter operator present. Vitals: Estimated body mass index [...] Dhruv Recinos DO documented in this encounter [facility] 06-21-2024 Miscellaneous Notes I called pt and left a message about the u;/s Talya Quiroga scheduled her for documented in this encounter [facility] 06-21-2024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
[2024-08-29] MEDS: BETAMETHASONE ACE/BETAMETHASONE SOD PHOS 30 MG/5 ML 12 MG IM (11:05)
== END 2024-08-29 12:35 | disposition home or self-care (01) ==
LOC: FBCO 07:50 → FBC 10:30
PROVIDERS: PCP Family Medicine; Visit Provider Obstetrics & Gynecology
DX: Z36.84 Encounter for antenatal screening for fetal lung maturity (principal)
CPT/HCPCS: J0702

== ENCOUNTER 2024-09-12 19:36 | Outpatient (REF) | payer OTHER, SELFPAY ==
--- OUTSIDE RECORDS SUMMARY | 2020-08-25 12:00 | XMS_ITS | Continuity of Care Document ---
Author Organization [facility] Address [address] [place] [address] Phone Care Team Providers Care Hazmat Cdl Driver Name Role Phone Woodrow LANEJessica Unavailable Unavailable [...] Four Films Nutrit [employer]s For Control Of [place] Dis Mar Oral Hygiene Instruction Prophylaxis Adult Topical Jorge Of Flouride Varnish 018 Oral Hygiene Instruction Moderate Risk Intraoral-complete Series (bw) 18 Comp Oral Eval New/estab Patient 2017 Oral Hygiene Instruction Advance Directives Directive Yes / No Effective Date File Name No Information Encounters Encounter Description Practice Location Reason(s) For Visit Diagnoses Date Provider Providers Copied on Encounter [facility], [address] [facility], [place], [place], [id number] , [place] tel:[phone] Dental Clinic prophy (chief complaint) Encounter for screening for dental disorders 1 Woodrow DMD Jessica. [address] [place], [place], [id number], [place]. tel:[phone] [facility], [address] [place], [place], [id number] , [place] tel: [phone] Dental Clinic filling (chief complaint) Encounter for screening for dental disorders 9 [facility]. [address] [place], [place], [id number], [place]. tel:[phone] [facility], [address] [place] [address], [id number] , [place] tel: [phone] Dental Clinic Prophy (chief complaint) Encounter for screening for dental disorders 9 [facility]. [address] [place] [address], [id number], [place]. tel:[phone] [facility], [address] [place] [address], [id number] , [place] tel: [phone] Dental Clinic Encounter for screening for dental disorders 8 Eitan DMD Mehul. [address] [place], [address], [place]. tel:[phone] [facility], [address] [place] [address], [id number] , [place] tel: [phone] Dental Clinic dental new (chief complaint) Encounter for screening for dental disorders 8 Ama DMD Deepasulochana. [address] [place], [address], [place]. tel:[phone] Family History Family Member Type Diagnosis Age At Onset Father Problem (finding) Alive and well Mother Problem (finding) Alive and well Payers Payer name Insurance type Covered republican ID Blane hess(s) D Medicaid [facility] [id number] Social History Type Description Quantity Date Captured [...]
--- OUTSIDE RECORDS SUMMARY | 2023-07-17 05:40 | XMS_ITS ---
Author Organization [facility] Address [address] [place] [address] Care Team Providers Care Elevator Pilot Name Role Phone Siddharth Weinstein Primary Care Provider REASON FOR VISIT NEW PATIENT DENTAL EXAM Encounters Encounter Location Date Provider Diagnosis [address] [address] 07/17/2023 Siddharth Weinstein Plan Of Treatment No Information Progress Notes * JUAN DIEGO ROMERODOB: 9 (23 yo F)Acc No.[id number]:07/17/2023 Patient: Paola JUAN DIEGO LE Provider: Gage Weinstein DDS :2000 A ge:22 Y S ex:Female Date:07/17/2023 Address:[address] [place], [place] [id number] Subjective: * Chief Complaints: * 1 . NEW PATIENT DENTAL EXAM. * Medical History: Objective: * Vitals: Assessment: Plan: * Treatment: * Images: * Electronic signature of Chris Weinstein DDS on 09/12/2024 at 07:39 PM EDT Sign off status: Pending * Provider: Gage Weinstein DDS Date: 07/17/2023 Generated for Roma taylor/Ashwin/eTransmitting on: 09/12/2024 07:39 PM EDT
--- OUTSIDE RECORDS SUMMARY | 2024-03-07 06:40 | XMS_ITS ---
Author Organization [facility] Address [address] [place] [address] Care Team Providers Care Hotel Supplies Salesperson Name Role Phone Siddharth Weinstein Primary Care Provider [phone] REASON FOR VISIT NEW PT EXAM (EXTREMEM TOOTH PAIN) Encounters Encounter Location Date Provider Diagnosis [address] [place] [address] 03/07/2024 Siddharth Weinstein Plan Of Treatment No Information Progress Notes * JUAN DIEGO ROMERODOB: 9 (23 yo F)Acc No.[id number]:03/07/2024 Patient: Paola JUAN DIEGO LE Provider: Gage Weinstein DDS :2000 A ge:23 Y S ex:Female Date:03/07/2024 Address:[address] [place], [place] [id number] Subjective: * Chief Complaints: * 1 . NEW PT EXAM (EXTREMEM TOOTH PAIN). * Medical History: Objective: * Vitals: Assessment: Plan: * Treatment: * Images: * Electronic signature of Chris Weinstein DDS on 09/12/2024 at 07:39 PM EDT Sign off status: Pending * Provider: Gage Weinstein DDS Date: 03/07/2024 Generated for Roma taylor/Fagurjit/eTransmitting on: 0 09/12/2024 07:39 PM EDT
--- OUTSIDE RECORDS SUMMARY | 2024-08-29 15:02 | XMS_ITS | Encounter Summary ---
Author Organization [facility] tem Address [id number] [address] 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 Name Role Phone Unavailable Primary Care Provider Unavailabl e Reason for Referral * Diagnostic Imaging (Routine) - Pending Review Specialty Diagnoses / Procedures Referred By Contac Referred To Contact Maternal and Medicine Diagnoses Monochorionic 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 Procedures US [facility] with or without consult Aiden Reddy MD [address], [address] [place] [address] Phone: tel: fax: Maternal- Medicine at [place] [address] [place] [address] Phone: tel: fax: Referral ID Status Reason Start Date Expiration Date V isits Requested Visits Authorized [id number] Pending Review 08/16/2024 08/16/2025 1 1 Reason for Visit * Diagnostic Imaging (Routine) - Pending Review Specialty Diagnoses / Procedures Referred By [facility] Referred To Contact Maternal and Medicine Diagnoses Monochorionic 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 Procedures US [facility] with or without consult Aiden Reddy MD [address], [address] [place] [address] Phone: tel: fax: Maternal- Medicine at [facility] [address] [place] [address] Phone: tel: fax: Referral ID Status Reason Start Date Expiration Date V isits Requested Visits Authorized [id number] Pending Review 08/16/2024 08/16/2025 1 1 Encounter Details Date Type Department Care Team (Latest Contact Info) Description 08/29/2024 3:02 PM EDT - 08/29/2024 11:59 PM EDT Hospital Encounter [facility] Imaging [address] [place] [address] Monochorionic diamniotic twin gestation in [...] for 210 days. 30 tablet 6 04/26/2024 5 metFORMIN XR (GLUCOPHAGE XR) 500 mg 24 [...] as of this encounter Plan of Treatment Not on file documented as of this encounter Procedures Procedure Name Priority Date/Time Associated Diagnosis Comments US MFM LMTD OB, 1 OR MORE FETUS Routine 08/29/2024 4:37 PM EDT Monochorionic 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 documented in this encounter Results * US MFM LMTD OB, 1 OR MORE FETUS (08/29/2024 4:37 PM EDT) Anatomical Region Laterality Modality OB-PHOTOGRAPH EDITOR Ultrasound 08/29/2024 3:56 PM EDT Narrative 08/29/2024 4:44 PM EDT NAME: HEATHER ADAMSON : 2000 SEX: F Accession Number: [id number] ORDERING PHYSICIAN: AIDEN REDDY REFERRING PHYSICIAN: DEMETRIUS BRYSON Coding ----- --------- Procedures 14491: Limited OB / MELODY, 1 or More Fetuses Indication ----- --------- Obesity in , Dupage-Di twin , Supervision of high risk - A - EIF. History ----- --------- OB History 1. Para 0 [id number] Current ----- --------- Cell free DNA LOW RISK analysis Maternal Assessment ----- --------- Physical Exam Height 168 cm, 5 ft 6 in. Initial weight 139 kg, 307 lb. Initial BMI 49.55 kg/m Method ----- --------- Transabdominal ultrasound examination ----- --------- Twin . Number of fetuses: 2. Monochorionic-diamniotic Dating ----- --------- LMP on: 01/03/2024 Cycle: regular cycle GA by LMP 34 w + 1 d DORON by LMP: 10/09/2024 Previous Ultrasound on: 02/23/2024 Type of prior assessment: GA GA at prior assessment date 7 w + 0 d GA by previous U/S 33 w + 6 d DORON by previous Ultrasound: 10/11/2024 Assigned: based on the LMP, selected on 04/26/2024 Assigned GA 34 w + 1 d Assigned DORON: 10/09/2024 Fetus A: General Evaluation ----- --------- Cardiac activity Present. FHR 141 bpm. Presentation: Lower right fetus, cephalic Placenta: Placental site: posterior, previously documented away from cervical os Amniotic fluid: Amount of AF: normal amount. MVP 3.3 cm Fetus B: General Evaluation ----- --------- Cardiac activity Present. FHR 151 bpm. Presentation: Upper left fetus, cephalic Placenta: Placental site: posterior, previously documented away from cervical os Amniotic fluid: Amount of AF: normal amount. MVP 4.5 cm Fetus A: Anatomy ----- --------- The following structures appear normal: Abdomen: Stomach. Bladder. Fetus B: Anatomy ----- --------- The following structures appear normal: Abdomen Stomach. Bladder. Maternal Structures ----- --------- Uterus Visualized Cervix Suboptimal Approach - Transabdominal Right Ovary Not examined Left Ovary Not examined Cul de Sac Suboptimal Impression ----- --------- Monochorionic-diamniotic twin . Twin A is Lower right fetus, cephalic. bladder and stomach are identified. Amniotic fluid MVP measures 3.3 cm. Known echogenic intracardiac focus was not evaluated on today's exam. Twin B is Upper left fetus, cephalic. bladder and stomach are identified. Amniotic fluid MVP measures 4.5 cm. Recommendations ----- --------- Please see [facility] recommendations from prior clinical and/or ultrasound report documentation. Patient is scheduled in two weeks for follow up growths with TTTS protocol. Subsequent follow up or other follow up as clinically determined by primary OB provider unless otherwise specified by [facility]. Results forwarded to ordering provider so they can follow up with the patient as necessary. Procedure Note Elvie Montero MD - 08/29/2024 NAME: HEATHER ADAMSON : 2000 SEX: F Accession Number: [id number] ORDERING PHYSICIAN: AIDEN REDDY REFERRING PHYSICIAN: DEMETRIUS BRYSON Coding ----- --------- Procedures 77184: Limited OB / MELODY, 1 or More Fetuses Indication ----- --------- Obesity in , Dupage-Di twin , Supervision of high riskpregnancy - A - EIF. History ----- --------- OB History 1. Para 0 [id number] Current ----- --------- Cell free DNA LOW RISK analysis Maternal Assessment ----- --------- Physical Exam Height 168 cm, 5 ft 6 in. Initial weight 139 kg, 307 lb.Initial BMI 49.55 kg/m Method ----- --------- Transabdominal ultrasound examination ----- --------- Twin . Number of fetuses: 2. Monochorionic-diamniotic Dating ----- --------- LMP on: 01/03/2024 Cycle: regular cycle GA by LMP 34 w + 1 d DORON by LMP: 10/09/2024 Previous Ultrasound on: 02/23/2024 Type of prior assessment: GA GA at prior assessment date 7 w + 0 d GA by previous U/S 33 w + 6 d DORON by previous Ultrasound: 10/11/2024 Assigned: based on the LMP, selected on 04/26/2024 Assigned GA 34 w + 1 d Assigned DORON: 10/09/2024 Fetus A: General Evaluation ----- --------- Cardiac activity Present. FHR 141 bpm. Presentation: Lower right fetus,cephalic Placenta: Placental site: posterior, previously documented away fromcervical os Amniotic fluid: Amount of AF: normal amount. MVP 3.3 cm Fetus B: General Evaluation ----- --------- Cardiac activity Present. FHR 151 bpm. Presentation: Upper left fetus,cephalic Placenta: Placental site: posterior, previously documented away fromcervical os Amniotic fluid: Amount of AF: normal amount. MVP 4.5 cm Fetus A: Anatomy ----- --------- The following structures appear normal: Abdomen: Stomach. Bladder. Fetus B: Anatomy ----- --------- The following structures appear normal: Abdomen Stomach. Bladder. Maternal Structures ----- --------- Uterus Visualized Cervix Suboptimal Approach - Transabdominal Right Ovary Not examined Left Ovary Not examined Cul de Sac Suboptimal Impression ----- --------- Monochorionic-diamniotic twin . Twin A is Lower right fetus, cephalic. bladder and stomach are identified. Amniotic fluid MVP measures 3.3 cm. Known echogenic intracardiac focus was not evaluated on today's exam. Twin B is Upper left fetus, cephalic. bladder and stomach are identified. Amniotic fluid MVP measures 4.5 cm. Recommendations ----- --------- Please see [facility] recommendations from prior clinical and/or ultrasoundreport documentation. Patient is scheduled in two weeks for follow up growths with TTTSprotocol. Subsequent follow up or other follow up as clinically determined byprimary OB provider unless otherwise specified by [facility]. Results forwarded to ordering provider so they can follow up with thepatient as necessary. us Aiden Reddy MD [facility] ORDERABLES Final Resul t documented in this encounter Visit Diagnoses Diagnosis Monochorionic 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 documented in this encounter
--- OUTSIDE RECORDS SUMMARY | 2024-09-11 11:00 | XMS_ITS | Encounter Summary ---
Author Organization [facility] tem Address [facility] [id number] [address] [place] [address] Care Team Providers Care Day Worker Name Role Phone Unavailable Primary Care Provider Unavailabl e Reason for Visit * Reason Comments Gestational Diabetes * Consultation (Routine) - Pending Review Specialty Diagnoses / Procedures Referred By Laureano t Referred To Contact Maternal and Medicine Diagnoses Monochorionic 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 Gestational diabetes mellitus (GDM) in third trimester, gestational diabetes method of control unspecified Dhruv Recinos, DO [address] [place] [address] Phone: tel: fax: Maternal- Medicine at [facility] [address] [place] [address] Phone: tel: fax: Referral ID Status Reason Start Date Expiration Date Visits Requested Visits Authorized [id number] Pending Review Specialty Services Required 08/29/2024 08/29/2025 1 1 Encounter Details Date Type Department Care Team (Latest Contact Info) Description 09/11/2024 11:00 AM EDT Support Visit Maternal- Medicine at 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 Rashaad Recinos Name: Dr. Edith Ford Name: City: [facility]:[place] City: Last time seen: 08/28/24 Last time [...] it first Is there anything about yourculture, yarsani, or personal beliefs we need to know about to care for you: Other None Primary Language spoken: Togolese [22] Primary Language for learning: Togolese Are you currently in a relationship where you are physically hurt, threatened or made to fee afraid? [] Yes [] No Nursing Program Director needed? [] Yes [] No Marital status/Living [...] Interpersonal Safety: Low Risk (05/31/2024) Received from [facility] Intimate Partner Violence Safe in [...] If yes, where: On thge following scale, [place] the number, which describes your current level [...] hour after meals including sending them to [email or web address] weekly on Monday night/Monday and being active [...] Medical History: Diagnosis Date BMI 45.0-49.9, adult ([facility]) Irregular periods Oligomenorrhea PCOS (polycystic [...] Current BMI: Body mass index is 53.58 kg/m². Pre Wt. Category: obese Current Weight: Wt [...] Educational Level High School Family issues stable Cultural/ethnic/hindu influences denies Exercise approved by MD? Yes Current Exercise program walking Who prepares the meal pt Who purchase food at your home? pt Equipment use for cooking/food storage has all Food Assistance(Ex.WIC, Food [place]) has already Dining out Yes couple times per week Appetite/Appetite changes no change Weight History stable Do you have cats at home? Infant Feeding Plans Breast Feeding If you have cats, who cleans the litter box? Cravings/Aversions/Pica none Nutrition Assessment Worksheet: Week/Weekend Food Recall Breakfast Something 1-2 hours after waking up Snack Lunch [place] Snack Fruit or Hot cheetos and cream cheese Dinner Occitan food Rice Onion green pepper Steak Water [...]
--- OUTSIDE RECORDS SUMMARY | 2024-09-11 13:03 | XMS_ITS | Encounter Summary ---
Author Organization [facility] tem Address [id number] [address] [place] [address] Care Team Providers Care Garland Maker Name Role Phone Unavailable Primary Care Provider Unavailabl e Reason for Referral * Diagnostic Imaging (Routine) - Pending Review Specialty Diagnoses / Procedures Referred By Contac Referred To Contact Maternal and Medicine Diagnoses Monochorionic 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 Procedures [facility] with or without consult Aiden Reddy MD [address], [address] [place] [address] Phone: tel: fax: Maternal- Medicine at [place] [id number] [place] [address] Phone: tel: fax: Referral ID Status Reason Start Date Expiration Date V isits Requested Visits Authorized [id number] Pending Review 08/16/2024 08/16/2025 1 1 Reason for Visit * Diagnostic Imaging (Routine) - Pending Review Specialty Diagnoses / Procedures Referred By [facility] Referred To Contact Maternal and Medicine Diagnoses Monochorionic 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 Procedures [facility] with or without consult Aiden Reddy MD [address], [address] [place] [address] Phone: tel: fax: Maternal- Medicine at [facility] [address] [place] [address] Phone: tel: fax: Referral ID Status Reason Start Date Expiration Date V isits Requested Visits Authorized [id number] Pending Review 08/16/2024 08/16/2025 1 1 Encounter Details Date Type Department Care Team (Latest Contact Info) Description 09/11/2024 1:03 PM EDT - 09/11/2024 11:59 PM EDT Hospital Encounter [facility] [address] [place] [address] Monochorionic diamniotic twin gestation in [...] and then stop 30 tablet 6 04/26/2024 ferrous sulfate 325 (65 FE) MG tablet Take 1 tablet (325 mg total) by mouth daily with breakfast. folic acid (FOLVITE) 1 mg tabletIndications:16 weeks [...] Priority Date/Time Associated Diagnosis Comments US [facility] OB FOLLOW-UP, 1 FETUS Routine 09/11/2024 2:44 PM EDT Monochorionic 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 documented in this encounter Results * US MFM OB FOLLOW-UP, 1 FETUS (09/11/2024 2:44 PM EDT) Anatomical Region Laterality Modality OB-UX RESEARCHER Ultrasound 09/11/2024 2:07 PM EDT Narrative 09/11/2024 2:51 PM EDT NAME: HEATHER ADAMSON : 2000 SEX: F Accession Number: [id number] ORDERING PHYSICIAN: AIDEN REDDY REFERRING PHYSICIAN: DEMETRIUS BRYSON Coding ----- --------- Procedures 69607: Follow-up Ultrasound, per fetus. 2 Indication ----- --------- Obesity in , [place]-Di twin , Supervision of high risk - A - EIF. History ----- --------- OB History 1. Para 0 [id number] Current ----- --------- Cell free DNA LOW RISK analysis Maternal Assessment ----- --------- Physical Exam Height 168 cm, 5 ft 6 in. Initial weight 139 kg, 307 lb. Initial BMI 49.55 kg/m Method ----- --------- Transabdominal ultrasound examination ----- --------- Twin . Number of fetuses: 2. Monochorionic-diamniotic Dating ----- --------- LMP on: 01/03/2024 Cycle: regular cycle GA by LMP 36 w + 0 d DORON by LMP: 10/09/2024 Previous Ultrasound on: 02/23/2024 Type of prior assessment: GA GA at prior assessment date 7 w + 0 d GA by previous U/S 35 w + 5 d DORON by previous Ultrasound: 10/11/2024 Ultrasound examination on: 09/11/2024 GA by U/S based upon: AC, BPD, Femur, HC GA by U/S 35 w + 0 d DORON by U/S: 10/16/2024 GA by U/S based upon (Fetus 2): AC, BPD, Femur, HC GA by U/S (Fetus 2) 34 w + 4 d DORON by U/S (Fetus 2): 10/19/2024 Assigned: based on the LMP, selected on 04/26/2024 Assigned GA 36 w + 0 d Assigned DORON: 10/09/2024 Fetus A: General Evaluation ----- --------- Cardiac activity Present. FHR 137 bpm. Presentation: cephalic right, lower Placenta: Placental site: posterior, fundal, posterior, previously documented away from cervical os Umbilical cord: Cord vessels: 3 vessel cord. Insertion site: documented previously Amniotic fluid: Amount of AF: normal amount. MVP 5.0 cm Fetus B: General Evaluation ----- --------- Cardiac activity Present. FHR 154 bpm. Presentation: transverse head maternal right, upper left Placenta: Placental site: posterior, fundal, posterior, previously documented away from cervical os Umbilical cord: Cord vessels: 3 vessel cord. Insertion site: documented previously Amniotic fluid: Amount of AF: normal amount. MVP 5.4 cm Fetus A: Biometry ----- --------- Standard BPD 89.2 mm 36w 1d 61% Hadlock OFD 106.0 mm 35w 0d 24% Umberto HC 311.2 mm 34w 6d 5% Hadlock AC 311.0 mm 35w 0d 32% Hadlock Femur 65.3 mm 33w 5d 4% Hadlock Humerus 56.5 mm 32w 6d 7% Umberto HC / AC 1.00 EFW 2,506 g 21% Hadlock EFW discordance 5.9 % EFW (lb) 5 lb EFW (oz) 8 oz EFW by: Hadlock (JTL-[id number]-FL) Extended Tibia 60.4 mm 35w 1d 57% Umberto Stock Pitcher 5.8 mm Head / Face / Neck Cephalic index 0.84 78% Nicolaides Extremities / Bony Struc FL / BPD 0.73 FL / HC 0.21 FL / AC 0.21 Other Structures FHR 137 bpm Fetus B: Biometry ----- --------- Standard BPD 84.1 mm 33w 6d 8% Hadlock OFD 105.3 mm 34w 5d 19% Umberto HC 306.3 mm 34w 1d 2% Hadlock AC 331.6 mm 37w 0d 86% Hadlock Femur 63.8 mm 33w 0d 1% Hadlock Humerus 56.8 mm 33w 0d 8% Umberto HC / AC 0.92 EFW 2,662 g 34% Hadlock EFW discordance 5.9 % EFW (lb) 5 lb EFW (oz) 14 oz EFW by: Hadlock (BGC-KH-LI-FL) Extended Tibia 61.3 mm 35w 4d 70% Umberto Foot 71.4 mm 33% Chitty Head / Face / Neck Cephalic index 0.80 35% Nicolaides Extremities / Bony Struc FL / BPD 0.76 FL / HC 0.21 FL / AC 0.19 Other Structures FHR 154 bpm Fetus A: Anatomy ----- --------- The following structures appear normal: Head/Neck: Cranium. Lateral ventricles. Cavum septi pellucidi. Heart/Thorax: 4-chamber view. Cardiac position. Cardiac axis. Cardiac size. Cardiac rhythm. Diaphragm. Abdomen: Stomach. Kidneys. Bladder. Fetus B: Anatomy ----- --------- The following structures appear normal: Head / Neck Cranium. Heart / Thorax Cardiac rhythm. Abdomen Stomach. Kidneys. Bladder. The following structures were documented previously: Head / Neck Lateral ventricles. Cavum septi pellucidi. Heart / Thorax 4-chamber view. Diaphragm. Maternal Structures ----- --------- Uterus Visualized Cervix Not visualized Right Ovary Not visualized Left Ovary Not visualized Cul de Sac Suboptimal Impression ----- --------- Monochorionic-diamniotic twin consistent with 36w 0d with an DORON of 10/09/2024. Twin A is cephalic right, lower. Normal growth with EFW measuring at the 21%, AC measures at the 32%. Amniotic fluid MVP measures 5 cm. Twin B is transverse head maternal right, upper left. Normal growth with EFW measuring at the 34%, AC measures at the 86%. The femur is measuring less than the 3rd percentile. The femur to foot ratio = 0.9 which is within normal limits. Amniotic fluid MVP measures 5.4 cm. Twin growth discordance is 5.9%. Recommendations ----- --------- Results forwarded to ordering provider so they can follow up with the patient as necessary. Subsequent follow up or other follow up as clinically determined by primary OB provider unless otherwise specified by M. Procedure Note Elvie Montero MD - 09/11/2024 NAME: HEATHER ADAMSON : 2000 SEX: F Accession Number: [id number] ORDERING PHYSICIAN: AIDEN REDDY REFERRING PHYSICIAN: DEMETRIUS BRYSON Coding ----- --------- Procedures 01239: Follow-up Ultrasound, per fetus. 2 Indication ----- --------- Obesity in , [place]-Di twin , Supervision of high riskpregnancy - A - EIF. History ----- --------- OB History 1. Para 0 [id number] Current ----- --------- Cell free DNA LOW RISK analysis Maternal Assessment ----- --------- Physical Exam Height 168 cm, 5 ft 6 in. Initial weight 139 kg, 307 lb.Initial BMI 49.55 kg/m Method ----- --------- Transabdominal ultrasound examination ----- --------- Twin . Number of fetuses: 2. Monochorionic-diamniotic Dating ----- --------- LMP on: 01/03/2024 Cycle: regular cycle GA by LMP 36 w + 0 d DORON by LMP: 10/09/2024 Previous Ultrasound on: 02/23/2024 Type of prior assessment: GA GA at prior assessment date 7 w + 0 d GA by previous U/S 35 w + 5 d DORON by previous Ultrasound: 10/11/2024 Ultrasound examination on: 09/11/2024 GA by U/S based upon: AC, BPD, Femur, HC GA by U/S 35 w + 0 d DORON by U/S: 10/16/2024 GA by U/S based upon (Fetus 2): AC, BPD, Femur, HC GA by U/S (Fetus 2) 34 w + 4 d DORON by U/S (Fetus 2): 10/19/2024 Assigned: based on the LMP, selected on 04/26/2024 Assigned GA 36 w + 0 d Assigned DORON: 10/09/2024 Fetus A: General Evaluation ----- --------- Cardiac activity Present. FHR 137 bpm. Presentation: cephalic right,lower Placenta: Placental site: posterior, fundal, posterior, previouslydocumented away from cervical os Umbilical cord: Cord vessels: 3 vessel cord. Insertion site: documentedpreviously Amniotic fluid: Amount of AF: normal amount. MVP 5.0 cm Fetus B: General Evaluation ----- --------- Cardiac activity Present. FHR 154 bpm. Presentation: transverse headmaternal right, upper left Placenta: Placental site: posterior, fundal, posterior, previouslydocumented away from cervical os Umbilical cord: Cord vessels: 3 vessel cord. Insertion site: documentedpreviously Amniotic fluid: Amount of AF: normal amount. MVP 5.4 cm Fetus A: Biometry ----- --------- Standard BPD 89.2 mm 36w 1d 61% Hadlock OFD 106.0 mm 35w 0d 24% Umberto HC 311.2 mm 34w 6d 5% Hadlock AC 311.0 mm 35w 0d 32% Hadlock Femur 65.3 mm 33w 5d 4% Hadlock Humerus 56.5 mm 32w 6d 7% Umberto HC / AC 1.00 EFW 2,506 g 21% Hadlock EFW discordance 5.9 % EFW (lb) 5 lb EFW (oz) 8 oz EFW by: Hadlock ([id number]-[id number]-FL) Extended Tibia 60.4 mm 35w 1d 57% Umberto Stock Pitcher 5.8 mm Head / Face / Neck Cephalic index 0.84 78% Nicolaides Extremities / Bony Struc FL / BPD 0.73 FL / HC 0.21 FL / AC 0.21 Other Structures FHR 137 bpm Fetus B: Biometry ----- --------- Standard BPD 84.1 mm 33w 6d 8% Hadlock OFD 105.3 mm 34w 5d 19% Umberto HC 306.3 mm 34w 1d 2% Hadlock AC 331.6 mm 37w 0d 86% Hadlock Femur 63.8 mm 33w 0d 1% Hadlock Humerus 56.8 mm 33w 0d 8% Umberto HC / AC 0.92 EFW 2,662 g 34% Hadlock EFW discordance 5.9 % EFW (lb) 5 lb EFW (oz) 14 oz EFW by: Hadlock (FNM-IV-DW-FL) Extended Tibia 61.3 mm 35w 4d 70% Umberto Foot 71.4 mm 33% Chitty Head / Face / Neck Cephalic index 0.80 35% Nicolaides Extremities / Bony Struc FL / BPD 0.76 FL / HC 0.21 FL / AC 0.19 Other Structures FHR 154 bpm Fetus A: Anatomy ----- --------- The following structures appear normal: Head/Neck: Cranium. Lateral ventricles. Cavum septi pellucidi. Heart/Thorax: 4-chamber view. Cardiac position. Cardiac axis. Cardiacsize. Cardiac rhythm. Diaphragm. Abdomen: Stomach. Kidneys. Bladder. Fetus B: Anatomy ----- --------- The following structures appear normal: Head / Neck Cranium. Heart / Thorax Cardiac rhythm. Abdomen Stomach. Kidneys. Bladder. The following structures were documented previously: Head / Neck Lateral ventricles. Cavum septi pellucidi. Heart / Thorax 4-chamber view. Diaphragm. Maternal Structures ----- --------- Uterus Visualized Cervix Not visualized Right Ovary Not visualized Left Ovary Not visualized Cul de Sac Suboptimal Impression ----- --------- Monochorionic-diamniotic twin consistent with 36w 0d with an EDDof 10/09/2024. Twin A is cephalic right, lower. Normal growth with EFW measuring at the 21%, AC measures at the32%. Amniotic fluid MVP measures 5 cm. Twin B is transverse head maternal right, upper left. Normal growth with EFW measuring at the 34%, AC measures at the86%. The femur is measuring less than the 3rd percentile. The femur to footratio = 0.9 which is within normal limits. Amniotic fluid MVP measures 5.4 cm. Twin growth discordance is 5.9%. Recommendations ----- --------- Results forwarded to ordering provider so they can follow up with thepatient as necessary. Subsequent follow up or other follow up as clinically determined byprimary OB provider unless otherwise specified by M. Aiden Reddy MD [facility] ORDERABLES Final Resul t documented in this encounter Visit Diagnoses Diagnosis Monochorionic 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 documented in this encounter
--- OUTSIDE RECORDS SUMMARY | 2024-09-12 10:50 | XMS_ITS | Encounter Summary ---
Author Organization [facility] Address [address] [place] [address] Care Team Providers Care Flatbed Press Operator Name Role Phone Edith Ford MD Primary Care Provider +1- [phone] Reason for Visit * Reason Comments Routine Visit Encounter Details Date Type Department Care Team ([facility] Contact Info) Description 09/12/2024 10:50 AM EDT Routine [facility] [address] [place] [address] Dhruv Recinos, DO [address] [facility] [place] [address] Third trimester ([facility]); 36 weeks gestation of ([facility]); Monochorionic diamniotic twin , antepartum ([facility]) Social History Tobacco Use Types Packs/Day Years [...] Sign Reading Time Taken Comments Blood Pressure 122/86 09/12/2024 11:08 AM EDT Pulse - - Temperature - - Respiratory Rate - - Oxygen Saturation - - Inhaled Oxygen Concentration - - Weight 150 kg (330 lb 12 oz) 09/12/2024 11:08 AM EDT Height - - Body Mass Index 53.38 06/02/2022 12:00 PM EDT documented in this encounter Plan of Treatment Upcoming Encounters Date Type Department Care Team (Late st Contact Info) Description 09/23/2024 1:50 PM EDT Office Visit [facility] [address] [place] [place] [address] Talya Reyna PA [address] [place] [address] Scheduled Orders Name Type Priority Associated Diagnoses Orde r Schedule CULTURE, GROUP B STREP WITH SUSCEPTIBLITY Lab Routine Third trimester ([facility]) Expected: 09/12/2024, Expires: 09/12/2025 documented as of this encounter Procedures Procedure Name Priority Date/Time Associated Diagnosis Comments POCT URINALYSIS DIPSTICK Routine 09/12/2024 11:07 AM EDT Third trimester ([facility]) documented in this encounter Results * (ABNORMAL) POCT urinalysis dipstick manually resulted (09/12/2024 11:07 AM EDT) Color, UA Yellow Clarity, UA Clear Glucose, UA Negative Negative - 2000(110) ++++ mg/dL Bilirubin, UA Negative Negative - 4(70) +++ mg/dL Ketones, UA Negative Negative - 160(16) ++++ mg/dL Spec Grav, UA 1.015 1 - 1.03 Blood, UA Positive Negative - 50 Duane/mcL Comment:Trace pH, UA 6.5 5 - 9 Protein, UA Trace Negative - 2000(20) ++++ mg/dL Urobilinogen, UA 0.2 0.2 - 12 mg/dL Leukocytes, UA Moderate Negative - 500+++ Belinda/mcL Nitrite, UA Negative Negative - Positive Urine 09/12/2024 11:0 7 AM EDT Dhruv Recinos DO POINT OF CARE TEST ENTER/EDIT OR DERABLES Final Result documented in this encounter Visit Diagnoses Diagnosis Third trimester ([facility]) state, incidental 36 weeks gestation of ([facility]) Monochorionic diamniotic twin , antepartum ([facility]) documented in this encounter Care Teams Flatbed Press Operator Relationship Specialty Start Date End Date Edith Ford MD [address] [place] [address] PCP - General Family Medicine 09/01/22 documented as of this encounter
--- OUTSIDE RECORDS SUMMARY | 2024-09-12 19:39 | XMS_ITS | Encounter Summary ---
Author Organization [facility] Address [address] [place] [address] Care Team Providers Care Seaport Planning Manager Name Role Phone Edith Ford MD Primary Care Provider +1- [phone] Encounter Details Date Type Department Care Team (Late Contact Info) Description 08/28/2024 Abstract [facility] [address] [place] [address] Dhruv Recinos DO [address] [place] [address] Dr Art Jalloh, [facility] Social History Tobacco Use [...] Department Care Team (Late Contact Info) Description 09/23/2024 1:50 PM EDT Office Visit [facility] [address] [place] [address] Talya Reyna PA [address] [place] [address] documented as of this encounter Visit Diagnoses Not on filedocumented in this encounter Care Teams Seaport Planning Manager Relationship Specialty Start Date End Date Edith Ford MD [address] [place] [address] PCP - General Family Medicine 09/01/22 documented as of this encounter
--- OUTSIDE RECORDS SUMMARY | 2024-09-12 19:39 | XMS_ITS | Encounter Summary ---
Author Organization [facility] Address [address] [place] [address] Care Team Providers Care Livestock Brands Inspector Name Role Phone Edith Ford MD Primary Care Provider +1- [phone] Encounter Details Date Type Department Care Team ([facility] Contact Info) Description 02/23/2024 Abstract [facility] [address] [place] [address] [address] Recinos [address] [place] [id number] Social History Tobacco Use Types Packs/Day Years [...] Upcoming Encounters Date Type Department Care Team ([facility] Contact Info) Description 09/23/2024 1:50 PM EDT Office Visit [facility] OB [address] [place] [address] [place] [address] Talya Reyna PA [address] [facility] [address] [place], [facility] documented as of this encounter Visit Diagnoses Not on filedocumented in this encounter Care Teams Livestock Brands Inspector Relationship Specialty Start Date End Date Edith Ford MD [address] [place] [address] PCP - General Family Medicine 09/01/22 documented as of this encounter
--- OUTSIDE RECORDS SUMMARY | 2024-09-12 19:39 | XMS_ITS | Encounter Summary ---
Author Organization [facility] Address [address] [place] [address] Care Team Providers Care Molding Sander Name Role Phone Edith Ford MD Primary Care Provider +1- [phone] Encounter Details Date Type Department Care Team (Late Contact Info) Description 09/10/2024 Abstract [facility] [address] [place] [address] Dhruv Recinos DO [address] [place] [address] Dr Art Jalloh, [facility]11 Social History Tobacco Use Types [...] 09/23/2024 1:50 PM EDT Office Visit [facility] OB [address] [place] [address] Talya Reyna PA [address] [facility] [place] [address] documented as of this encounter Visit Diagnoses Not on filedocumented in this encounter Care Teams Molding Sander Relationship Specialty Start Date End Date Edith Ford MD [address] [place] [address] PCP - General Family Medicine 09/01/22 documented as of this encounter
--- OUTSIDE RECORDS SUMMARY | 2024-09-12 19:39 | XMS_ITS | Encounter Summary ---
Author Organization [facility] Address [address] [facility] [place] [address] Care Team Providers Care Proposal Editor Name Role Phone Edith Ford MD Primary Care Provider +1- [phone] Encounter Details Date Type Department Care Team (Late Contact Info) Description 03/18/2024 Abstract [facility] [address] [facility] [address] Dhruv Recinos DO [address] [place] [address] Dr Art Jalloh, [facility]11 Social History Tobacco Use Types [...] 09/23/2024 1:50 PM EDT Office Visit [facility] [address] [facility] [address] Talya Reyna PA [address] [facility] [place] [address] documented as of this encounter Visit Diagnoses Not on filedocumented in this encounter Care Teams Proposal Editor Relationship Specialty Start Date End Date Edith Ford MD [address] [place] [address] PCP - General Family Medicine 09/01/22 documented as of this encounter
--- OUTSIDE RECORDS SUMMARY | 2024-09-12 19:39 | XMS_ITS | Encounter Summary ---
Author Organization [facility] Address [address] [place] [address] Care Team Providers Care Ballroom Dancer Name Role Phone Edith Ford MD Primary Care Provider +1- [phone] Encounter Details Date Type Department Care Team (Late Contact Info) Description 09/12/2024 Bamboo flowsheet [facility] [address] [facility] [place] [address] Dhruv Recinos DO [address] [place] [address] Dr Art Jalloh, [id number] Social History Tobacco Use Types Packs/Day Years [...] Upcoming Encounters Date Type Department Care Team ([facility] Contact Info) Description 09/23/2024 1:50 PM EDT Office Visit [facility] [address] [facility] [place] [address] Talya Reyna PA [address] [facility] [place] [address] documented as of this encounter Visit Diagnoses Not on filedocumented in this encounter Care Teams Ballroom Dancer Relationship Specialty Start Date End Date Edith Ford MD [address] [place] [address] PCP - General Family Medicine 09/01/22 documented as of this encounter
--- OUTSIDE RECORDS SUMMARY | 2024-09-12 19:39 | XMS_ITS | Encounter Summary ---
Author Organization [facility] Address [address] [place] [facility] [address] Care Team Providers Care Utility Technician Name Role Phone Edith Ford MD Primary Care Provider +1- [phone] Encounter Details Date Type Department Care Team (Late Contact Info) Description 03/08/2024 Abstract [facility] [address] [place] [address] Dhruv Recinos DO [address] [place] [address] Dr Art Jalloh, [facility]11 Social History Tobacco Use [...] 09/23/2024 1:50 PM EDT Office Visit [facility] OB [address] [place] [address] Talya Reyna PA [address] [place] [address] documented as of this encounter Visit Diagnoses Not on filedocumented in this encounter Care Teams Utility Technician Relationship Specialty Start Date End Date Edith Ford MD [address] [place] [address] PCP - General Family Medicine 09/01/22 documented as of this encounter
--- OUTSIDE RECORDS SUMMARY | 2024-09-12 19:39 | XMS_ITS | Encounter Summary ---
Author Organization [facility] Address [address] [place] [address] Care Team Providers Care Hooker Operator Name Role Phone Edith Ford MD Primary Care Provider +1- [phone] Encounter Details Date Type Department Care Team ([facility] Contact Info) Description 09/01/2022 Abstract [facility] [address] [facility] [place] [address] Talya Reyna PA [address] [place] [address] [place] [id number] Social History Tobacco Use Types Packs/Day Years [...] Upcoming Encounters Date Type Department Care Team ([facility] Contact Info) Description 09/23/2024 1:50 PM EDT Office Visit [facility] [address] [place] [address] [place] [address] Talya Reyna PA [address] [place] [address] [address] [place] [id number] documented as of this encounter Visit Diagnoses Not on filedocumented in this encounter Care Teams Hooker Operator Relationship Specialty Start Date End Date Edith Ford MD [address] [place] [address] PCP - General Family Medicine 09/01/22 documented as of this encounter
--- OUTSIDE RECORDS SUMMARY | 2024-09-12 19:40 | XMS_ITS | Encounter Summary ---
Author Organization [facility] Address [address] [facility] [place] [address] Care Team Providers Care Business Services Director Name Role Phone Edith Ford MD Primary Care Provider +1- [phone] Encounter Details Date Type Department Care Team (Late Contact Info) Description 03/28/2024 Abstract [facility] [address] [place] [address] Dhruv Recinos DO [address] [place] [address] Dr Art Jalloh, [facility]11 Social History Tobacco Use Types [...] 09/23/2024 1:50 PM EDT Office Visit [facility] OB [address] [facility] [place] [address] Talya Reyna PA [address] [facility] [place] [address] documented as of this encounter Visit Diagnoses Not on filedocumented in this encounter Care Teams Business Services Director Relationship Specialty Start Date End Date Edith Ford MD [address] [place] [address] PCP - General Family Medicine 09/01/22 documented as of this encounter
--- OUTSIDE RECORDS SUMMARY | 2024-09-12 19:40 | XMS_ITS | Encounter Summary ---
Author Organization [facility] Address [address] [facility] [place] [address] Care Team Providers Care Sonography Technologist Name Role Phone Edith Ford MD Primary Care Provider +1- [phone] Encounter Details Date Type Department Care Team (Late Contact Info) Description 08/01/2024 Abstract [facility] [address] [facility] [place] [address] Dhruv Recinos DO [address] [place] [address] Dr Art Jalloh, [facility]11 Social History Tobacco Use Types [...] [facility] [address] [place] [address] Talya Reyna PA [address] [facility] [place] [address] documented as of this encounter Visit Diagnoses Not on filedocumented in this encounter Care Teams Sonography Technologist Relationship Specialty Start Date End Date Edith Ford MD [address] [place] [address] PCP - General Family Medicine 09/01/22 documented as of this encounter
--- OUTSIDE RECORDS SUMMARY | 2024-09-12 19:40 | XMS_ITS | Encounter Summary ---
Author Organization [facility] Address [address] [place] [address] Care Team Providers Care Primary Substance Abuse Counselor Name Role Phone Edith Ford MD Primary Care Provider +1- [phone] Encounter Details Date Type Department Care Team (Late Contact Info) Description 05/28/2024 Abstract [facility] [address] [facility] [place] [address] Dhruv Recinos DO [address] [place] [address] Dr Art Jalloh, [facility]11 Social History Tobacco Use Types Packs/Day [...] 09/23/2024 1:50 PM EDT Office Visit [facility] OB [address] [facility] [place] [address] Talya Reyna PA [address] [place] [address] documented as of this encounter Visit Diagnoses Not on filedocumented in this encounter Care Teams Primary Substance Abuse Counselor Relationship Specialty Start Date End Date Edith Ford MD [address] [place] [address] PCP - General Family Medicine 09/01/22 documented as of this encounter
--- OUTSIDE RECORDS SUMMARY | 2024-09-12 19:40 | XMS_ITS | Clinical Summary ---
Author Organization [facility] Address [address] [place] [address] Care Team Providers Care Sizing Sprayer Name Role Phone Edith Ford MD Primary Care Provider +1- [phone] Allergies Active Allergy Reactions Criticality Noted Date Comments Sumatriptan Shortness of breath High 08/14/2016 Theophyllines Hives,Rash High 09/28/2010 Medications Vit-Fe Fumarate-FA ( Vitamins) 28-0.8 MG tabletIndications:P regnancy, unspecified gestational age ([facility]),Encounter for supervision of normal first in first trimester ([facility]) Take 1 tablet by mouth Daily 30 tablet 11 03/08/19 25 026 Active aspirin 81 MG EC tablet Take 81 mg by mouth 1 (one) time 04/26/19 25 Active folic acid (Folvite) 1 MG tablet Take 1 mg by mouth in the morning. 04/26/19 25 025 Active iron polysaccharides (ProFe) 391.3 (180 Fe) MG capsuleIndications: Other iron deficiency anemia Take 1 capsule (391.3 mg) by mouth Daily 30 capsule 6 08/22/19 25 025 Active Lancets Ultra Thin miscIndications:Ges tational diabetes mellitus (GDM), antepartum, gestational diabetes method of control unspecified ([facility]),Elevated glucose tolerance test 1 each by In Vitro route Daily Use to check FSBS four times daily 150 each 3 08/29/19 25 025 Active Alcohol Swabs (Alcohol Prep Pad) 70 % padsIndications:Ges tational diabetes mellitus (GDM), antepartum, gestational diabetes method of control unspecified ([facility]),Elevated glucose tolerance test Apply 1 Pad topically Daily Use four times daily to check FSBS. 150 each 3 08/29/19 25 Active Glucose Blood (Blood Glucose Test) stripIndications:Ge stational diabetes mellitus (GDM), antepartum, gestational diabetes method of control unspecified ([facility]),Elevated glucose tolerance test 1 strip by In Vitro route Daily Use in the morning prior to breakfast, 1 hour after each meal for a total of 4times daily. 150 strip 3 08/29/19 25 025 Active Blood Glucose Monitoring Suppl ([facility] Blood Glucose Meter) deviceIndications:G estational diabetes mellitus (GDM), antepartum, gestational diabetes method of control unspecified ([facility]),Elevated glucose tolerance test 1 kit in the morning and 1 kit at noon and 1 kit in the evening and 1 kit before bedtime. 1 each 08/29/19 25 Active magnesium oxide (Mag-Ox) 400 MG tabletIndications:N onintractable headache, unspecified chronicity pattern, unspecified headache type Take 1 tablet (400 mg) by mouth Daily 30 tablet 6 08/01/19 25 025 Active Problems Estimated Date of Delivery Comme nts Yes 10/09/2024 Based on last me nstrual period of 01/03/2024 No known active problems Encounters Date Type Department Care Team Description 09/12/2024 10:50 AM EDT Routine [facility] [address] [place] [address] Dhruv Recinos, DO Third trimester ([facility]); 36 weeks gestation of ([facility]); Monochorionic diamniotic twin , antepartum ([facility]) 09/12/2024 Bamboo flowsheet [facility] [address] [place] [address] Dhruv Recinos, DO 09/11/2024 Abstract [facility] [address] [place] [address] Dhruv Recinos, DO 09/10/2024 Abstract [facility] [address] [place] [address] [place] [address] Dhruv Recinos, 09/02/2024 Abstract [facility] [address] [place] [address] [place] [address] Miladis Moreno, NEL 08/28/2024 1:00 PM EDT Routine [facility] [address] [place] [address] Dhruv Recinos, DO Third trimester ([facility]); 34 weeks gestation of ([facility]) 08/28/2024 Abstract [facility] [address] [place] [address] Talya Reyna PA 08/28/2024 Abstract [facility] [address] [place] [address] Dhruv Recinos, DO 08/28/2024 Abstract [facility] [address] [place] [address] Dhruv Recinos, 08/28/2024 Telephone [facility] [address] [place] [address] Dhruv Recinos, DO 08/28/2024 Clinisync Result Encounter N[facility] External Department Unsolicited Dhruv Recinos, DO 08/26/2024 Abstract [facility] [address] [place] [address] Dhruv Recinos, DO 08/21/2024 1:00 PM EDT Routine [facility] OB [address] [place] [address] [place] [address] Talya Reyna, PA 33 weeks gestation of ([facility]); Third trimester ([facility]); Monochorionic diamniotic twin , antepartum ([facility]); Nonintractable headache, unspecified chronicity pattern, unspecified headache type; Other iron deficiency anemia 08/21/2024 Bamboo flowsheet [facility] [address] [place] [address] [place] [address] Talya Reyna PA 08/16/2024 Abstract [facility] [address] [facility] [address] Dhruv Recinos, DO 08/05/2024 1:50 PM EDT Routine [facility] [address] [facility] [address] Dhruv Recinos, DO 30 weeks gestation of ([facility]); Third trimester ([facility]) 08/05/2024 Bamboo flowsheet [facility] [address] [facility] [address] Dhruv Recinos, DO 08/01/2024 Abstract [facility] [address] [facility] [address] Dhruv Recinos, DO 07/31/2024 Telephone [facility] [address] [facility] [address] Dhruv Recinos, DO 07/30/2024 Abstract [facility] [address] [facility] [address] Dhruv Recinos, DO 07/18/2024 1:30 PM EDT Routine [facility] [address] [facility] [address] Talya Reyna PA 28 weeks gestation of ([facility]); Third trimester ([facility]) 07/18/2024 Abstract [facility] [address] [facility] [address] Dhruv Recinos, DO 07/18/2024 Bamboo flowsheet [facility] [address] [facility] [address] Talya Reyna PA 07/17/2024 Results Follow-Up [facility] [address] [facility] [address] Kim EstesDAVID 07/17/2024 Telephone [facility] [address] [place] [address] Kim EstesDAVID 07/16/2024 Clinisync Result Encounter NOMS External Department Unsolicited Dhruv Recinos, 07/05/2024 Abstract [facility] [address] [place] [address] Dhruv Recinos DO 06/26/2024 3:00 PM EDT Routine [facility] [address] [place] [address] Dhruv Recinos, Second trimester ([facility]); 25 weeks gestation of ([facility]); Diabetes mellitus screening; Monochorionic diamniotic twin , antepartum ([facility]) 06/26/2024 Bamboo flowsheet [facility] [address] [place] [address] Dhruv Recinos DO 06/17/2024 Abstract [facility] [address] [place] [address] Dhruv Recinos DO from Last 3 Months [...] Pressure 122/86 09/12/2024 11:08 AM EDT Pulse 89 06/29/2023 4:38 PM EDT Temperature - - Respiratory Rate - - Oxygen Saturation - - Inhaled Oxygen Concentration - - Weight 150 kg (330 lb 12 oz) 09/12/2024 11:08 AM EDT Height 167.6 cm (5' 6 ) 06/02/2022 12:00 PM EDT Body Mass Index 53.38 06/02/2022 12:00 PM EDT Plan of Treatment Upcoming Encounters Date Type Department Care Team (Late st Contact Info) Description 09/23/2024 1:50 PM EDT Office Visit [facility] [address] [facility] [address] Talya Reyna PA [address] [facility] [place] [address] Health Maintenance Due Date Last Done Comments Influenza Vaccine (#1) 2024 Procedures Procedure Name Priority Date/Time Associated Diagnosis Comments POCT URINALYSIS DIPSTICK Routine 09/12/2024 11:07 AM EDT Third trimester ([facility]) GLUCOSE TOLERANCE 3 HOUR Routine 08/28/2024 7:12 AM EDT POCT URINALYSIS DIPSTICK Routine 08/21/2024 1:39 PM EDT 33 weeks gestation of ([facility]) Third trimester ([facility]) Monochorionic diamniotic twin , antepartum ([facility]) POCT URINALYSIS DIPSTICK Routine 08/05/2024 2:25 PM EDT 30 weeks gestation of ([facility]) Third trimester ([facility]) POCT URINALYSIS DIPSTICK Routine 07/18/2024 1:44 PM EDT 28 weeks gestation of ([facility]) Third trimester ([facility]) ALL CBC WITH AUTO DIFF Routine 07/16/2024 9:24 AM EDT GLUCOSE 1 HOUR Routine 07/16/2024 9:24 AM EDT POCT URINALYSIS DIPSTICK Routine 06/26/2024 3:51 PM EDT Second trimester ([facility]) from Last 3 Months Results * (ABNORMAL) POCT urinalysis dipstick manually resulted (09/12/2024 11:07 AM EDT) Only the most recent of5 resultswithin the time period is included. Color, [...] OR DERABLES Final Result * (ABNORMAL) GLUCOSE TOLERANCE 3 HOUR (08/28/2024 7:12 AM EDT) GLUCOSE TOLERANCE 3 HOUR (H) mg/dL [facility] Comment: GLU FAST 95H (<95) Col: 08/28/24 0712 GLU 1HR 174 (<180) Col: 08/28/24 0814 GLU 2HR 173H (<155) Col: 08/28/24 0916 GLU 3HR 114 (<140) Col: 08/28/24 1018 08/28/2024 7:12 AM EDT 08/28/2024 7:18 AM EDT Narrative [facility] - 08/28/2024 11:04 AM EDT Dhruv Jorje DO LAB BLOOD ORDERABLES Final Resul t [facility] * (ABNORMAL) GLUCOSE 1 HOUR (07/16/2024 9:24 AM EDT) GLUCOSE 1 HOUR 157(H) <130 mg/dL [facility] 07/16/2024 9:24 AM EDT 07/16/2024 9:25 AM EDT Narrative [facility] - 07/16/2024 9:41 AM EDT Dhruv Jorje DO LAB BLOOD ORDERABLES Final Resul t Performing Organization Address City/[facility] Co de Phone Number [facility] TB * (ABNORMAL) ALL CBC WITH AUTO [...] Dhruv Jorje DO [facility] Final Result [facility] from Last 3 Months Insurance [employer] Care Teams Sizing Sprayer Relationship Specialty Start Date End Date Edith Ford MD [address] [place] [address] PCP - General Family Medicine 09/01/22
--- OUTSIDE RECORDS SUMMARY | 2024-09-12 19:40 | XMS_ITS | Encounter Summary ---
Author Organization [facility] Address [address] [facility] [place] [address] Care Team Providers Care Instructor Tap Dancing Name Role Phone Edith Ford MD Primary Care Provider +1- [phone] Encounter Details Date Type Department Care Team (Late Contact Info) Description 05/15/2024 Orders Only [facility] OB [address] [facility] [place] [address] Valeri Fischer MA [address] [facility] [place] [address] Social History Tobacco Use Types Packs/Day Years [...] Visit [facility] [address] [facility] [address] Talya Reyna PA [address] [facility] [address] [address] [place], [place] [address] documented as of this encounter Procedures Procedure Name Priority Date/Time Associated Diagnosis Comments PAP SMEAR Routine 05/07/2024 12:00 AM EDT documented in this encounter Results * Pap Smear (05/07/2024 12:00 AM EDT) Swab Cervical swab / Unknown us Talya OJEDA LAB CYTOLOGY ORDERABLES Final Re sult EXTERNAL LAB documented in this encounter Visit Diagnoses Not on filedocumented in this encounter Care Teams Instructor Tap Dancing Relationship Specialty Start Date End Date Edith Ford MD [address] [place] [address] PCP - General Family Medicine 09/01/22 documented as of this encounter
--- OUTSIDE RECORDS SUMMARY | 2024-09-12 19:40 | XMS_ITS | Encounter Summary ---
Author Organization [facility] [email or web address] [facility] tem Address [id number] [address] [place] [address] Care Team Providers Care Hooking Machine Operator Name Role Phone Unavailable Primary Care Provider Unavailabl e Encounter Details Date Type Department Care Team (Late st Contact Info) Description 06/04/2024 Orders Only Maternal- Medicine at [facility] [address] [place] [address] Ref Prov, [place] [address] Social History Tobacco Use Types Packs/Day Years [...]
--- OUTSIDE RECORDS SUMMARY | 2024-09-12 19:40 | XMS_ITS | Encounter Summary ---
Author Organization [facility] Address [address] [facility] [place] [address] Care Team Providers Care Vegetable Grader Name Role Phone Edith Ford MD Primary Care Provider +1- [phone] Encounter Details Date Type Department Care Team (Late Contact Info) Description 07/30/2024 Abstract [facility] [address] [facility] [place] [address] Dhruv Recinos DO [address] [place] [address] Dr Art Jalloh, [facility]11 Social History Tobacco Use Types Packs/Day [...] 09/23/2024 1:50 PM EDT Office Visit [facility] OB [address] [facility] [place] [address] Talya Reyna PA [address] [facility] [place] [address] documented as of this encounter Visit Diagnoses Not on filedocumented in this encounter Care Teams Vegetable Grader Relationship Specialty Start Date End Date Edith Ford MD [address] [place] [address] PCP - General Family Medicine 09/01/22 documented as of this encounter
--- OUTSIDE RECORDS SUMMARY | 2024-09-12 19:40 | XMS_ITS | Encounter Summary ---
Author Organization [facility] Address [address] [facility] [place] [address] Care Team Providers Care Steel Erector Name Role Phone Edith Ford MD Primary Care Provider +1- [phone] Encounter Details Date Type Department Care Team (Late Contact Info) Description 08/28/2024 Abstract [facility] OB [address] [facility] [place] [address] Talya Reyna PA [address] [place] [address] Dr [place], [facility]11 Social History Tobacco [...] 09/23/2024 1:50 PM EDT Office Visit [facility] [address] [facility] [place] [address] Talya Reyna PA [address] [place] [address] [place] [address] documented as of this encounter Visit Diagnoses Not on filedocumented in this encounter Care Teams Steel Erector Relationship Specialty Start Date End Date Edith Ford MD [address] [place] [address] PCP - General Family Medicine 09/01/22 documented as of this encounter
--- OUTSIDE RECORDS SUMMARY | 2024-09-12 19:40 | XMS_ITS | Encounter Summary ---
Author Organization [facility] Address [address] [facility] [place] [address] Care Team Providers Care Account Relationship Manager Name Role Phone Edith Ford MD Primary Care Provider +1- [phone] Encounter Details Date Type Department Care Team (Late Contact Info) Description 03/15/2024 Abstract [facility] [address] [facility] [place] [address] Dhruv Recinos DO [address] [place] [address] Dr Art Jalloh, [facility]11 Social History Tobacco Use Types [...] 09/23/2024 1:50 PM EDT Office Visit [facility] [address] [facility] [place] [address] Talya Reyna PA [address] [facility] [place] [address] documented as of this encounter Visit Diagnoses Not on filedocumented in this encounter Care Teams Account Relationship Manager Relationship Specialty Start Date End Date Edith Ford MD [address] [place] [address] PCP - General Family Medicine 09/01/22 documented as of this encounter
--- OUTSIDE RECORDS SUMMARY | 2024-09-12 19:40 | XMS_ITS | Encounter Summary ---
Author Organization [facility] Address [address] [facility] [place] [address] Care Team Providers Care Oven Unloader Name Role Phone Edith Ford MD Primary Care Provider +1- [phone] Encounter Details Date Type Department Care Team (Late Contact Info) Description 04/03/2024 Abstract [facility] [address] [facility] [place] [address] Dhruv Recinos DO [address] [place] [address] Dr Art Jalloh, [facility]11 Social History Tobacco [...] 09/23/2024 1:50 PM EDT Office Visit [facility] OB [address] [facility] [place] [address] Talya Reyna PA [address] [place] [address] documented as of this encounter Visit Diagnoses Not on filedocumented in this encounter Care Teams Oven Unloader Relationship Specialty Start Date End Date Edith Ford MD [address] [place] [address] PCP - General Family Medicine 09/01/22 documented as of this encounter
--- OUTSIDE RECORDS SUMMARY | 2024-09-12 19:40 | XMS_ITS | Encounter Summary ---
Author Organization [facility] Address [id number] [address] [place] [address] Care Team Providers Care Profile Stitching Machine Operator Name Role Phone Unavailable Primary Care Provider Unavailabl e Encounter Details Date Type Department Care Team (Latest Contact Info) Description 08/29/2024 Travel Social History Tobacco Use Types Packs/Day [...]
--- OUTSIDE RECORDS SUMMARY | 2024-09-12 19:40 | XMS_ITS | Encounter Summary ---
Author Organization [facility] Address [address] [facility] [place] [address] Care Team Providers Care Banking Services Advisor Name Role Phone Edith Ford MD Primary Care Provider +1- [phone] Encounter Details Date Type Department Care Team (Late Contact Info) Description 09/11/2024 Abstract [facility] [address] [facility] [address] Dhruv Recinos DO [address] [place] [address] Dr Art Jalloh, [facility]11 Social History [...] 09/23/2024 1:50 PM EDT Office Visit [facility] OB [address] [facility] [address] Talya Reyna PA [address] [facility] [place] [address] documented as of this encounter Visit Diagnoses Not on filedocumented in this encounter Care Teams Banking Services Advisor Relationship Specialty Start Date End Date Edith Ford MD [address] [place] [address] PCP - General Family Medicine 09/01/22 documented as of this encounter
--- OUTSIDE RECORDS SUMMARY | 2024-09-12 19:40 | XMS_ITS | Encounter Summary ---
Author Organization [facility] Address [id number] [address] [place] [address] Care Team Providers Care Fly Worker Name Role Phone Unavailable Primary Care Provider Unavailabl e Encounter Details Date Type Department Care Team (Latest Contact Info) Description 09/11/2024 Travel Social History Tobacco Use Types Packs/Day [...]
--- OUTSIDE RECORDS SUMMARY | 2024-09-12 19:40 | XMS_ITS | Encounter Summary ---
Author Organization [facility] Address [address] [facility] [place] [address] Care Team Providers Care Lung Gun Operator Name Role Phone Edith Ford MD Primary Care Provider +1- [phone] Encounter Details Date Type Department Care Team (Late Contact Info) Description 07/18/2024 Abstract [facility] [address] [facility] [place] [address] Dhruv Recinos DO [address] [place] [address] Dr Art Jalloh, [facility]11 Social History Tobacco Use Types Packs/Day [...] 09/23/2024 1:50 PM EDT Office Visit [facility] OB [address] [facility] [place] [address] Talya Reyna PA [address] [facility] [address] documented as of this encounter Visit Diagnoses Not on filedocumented in this encounter Care Teams Lung Gun Operator Relationship Specialty Start Date End Date Edith Ford MD [address] [place] [address] PCP - General Family Medicine 09/01/22 documented as of this encounter
--- OUTSIDE RECORDS SUMMARY | 2024-09-12 19:40 | XMS_ITS | Encounter Summary ---
Author Organization [facility] Address [address] [facility] [place] [address] Care Team Providers Care Cotton Classer Aide Name Role Phone Edith Ford MD Primary Care Provider +1- [phone] Encounter Details Date Type Department Care Team (Late Contact Info) Description 08/26/2024 Abstract [facility] [address] [place] [address] Dhruv Recinos DO [address] [place] [address] Dr Art Jalloh, [facility]11 Social History [...] 09/23/2024 1:50 PM EDT Office Visit [facility] [address] [place] [address] Talya Reyna PA [address] [facility] [place] [address] documented as of this encounter Visit Diagnoses Not on filedocumented in this encounter Care Teams Cotton Classer Aide Relationship Specialty Start Date End Date Edith Ford MD [address] [place] [address] PCP - General Family Medicine 09/01/22 documented as of this encounter
--- OUTSIDE RECORDS SUMMARY | 2024-09-12 19:40 | XMS_ITS | Encounter Summary ---
Author Organization [email or web address] tem Address [id number] [address] [place] [address] Care Team Providers Care Clinical Laboratory Manager Name Role Phone Unavailable Primary Care Provider Unavailabl e Encounter Details Date Type Department Care Team (Late st Contact Info) Description 04/11/2024 Orders Only Maternal- Medicine at [facility] [address] [place] [id number] Ref [place] [address] Social History Tobacco Use Types Packs/Day Years [...] ORDERABLES Dang l Result Performing Organization Address City/[facility]/ZIP Co de Phone Number MANUALLY TRANSCRIBED RESULTS * Unlisted Lab Test (03/15/2024 12:14 PM EST) us Not In System Ref Prov LAB BLOOD ORDERABLES Dang l Result Performing Organization Address [facility] Co de Phone Number MANUALLY TRANSCRIBED RESULTS * Ultrasound - Office (02/23/2024 12:24 PM EST) Anatomical Region Laterality Modality AMB Ultrasound us Not In System Ref Prov IMG US ORDERABLES Final R esult documented in this encounter Visit Diagnoses Not on filedocumented in this encounter
--- OUTSIDE RECORDS SUMMARY | 2024-09-12 19:40 | XMS_ITS | Encounter Summary ---
Author Organization [facility] Address [address] [facility] [place] [address] Care Team Providers Care Pearl Technician Name Role Phone Edith Ford MD Primary Care Provider +1- [phone] Encounter Details Date Type Department Care Team (Late Contact Info) Description 07/05/2024 Abstract [facility] [address] [facility] [address] Dhruv Recinos DO [address] [place] [address] Dr Art Jalloh, [facility]11 Social History Tobacco Use Types [...] Visit [facility] [address] [facility] [address] Talya Reyna PA [address] [place] [address] documented as of this encounter Visit Diagnoses Not on filedocumented in this encounter Care Teams Pearl Technician Relationship Specialty Start Date End Date Edith Ford MD [address] [place] [address] PCP - General Family Medicine 09/01/22 documented as of this encounter
--- OUTSIDE RECORDS SUMMARY | 2024-09-12 19:40 | XMS_ITS | Encounter Summary ---
Author Organization [facility] Address [address] [place] [address] Care Team Providers Care Director Of Marketing Operations Name Role Phone Edith Ford MD Primary Care Provider +1- [phone] Encounter Details Date Type Department Care Team (Late st Contact Info) Description 07/17/2024 Results Follow-Up [facility] [address] [place] [address] Kim Estes LPN [address] [id number] Social History Tobacco Use Types Packs/Day Years [...] EDT Office Visit [facility] [address] [place] [phone] Talya Reyna PA [address] [facility] [place] [address] documented as of this encounter Visit Diagnoses Not on filedocumented in this encounter Care Teams Director Of Marketing Operations Relationship Specialty Start Date End Date Edith Ford MD [address] [place] [address] PCP - General Family Medicine 09/01/22 documented as of this encounter
--- OUTSIDE RECORDS SUMMARY | 2024-09-12 19:40 | XMS_ITS | Clinical Summary ---
Author Organization [employer] [facility] tem Address [id number] [address] [place] [address] Care Team Providers Care Mixer Slagman Name Role Phone Unavailable Primary Care Provider [...] 30 tablet 6 5 11/23/19 25 Active ferrous sulfate 325 (65 FE) MG tablet Take 1 tablet (325 mg total) by mouth daily with breakfast. Active Active Problems Patient Care Coordination No te Formatting of this note migh t be different from the original. CARE COORDINATION DIAGNOSIS: Franklin Di Twins with 28% Discordancy Resolved Pt removed from NICU list Referring OB: Jorje MFM: Julian Maternal Hx: MSAFP: cfDNA: Low risk Monozygotic XX XX Carrier: Neg 05/31 Amnio: []Genetic Counselling: []Peds Cardiology: []Peds Urology: []Peds Ortho: []Peds Surgery: []Peds Neurology: []Peds Neurosurgery: []Peds Craniofacial: []NICU Consult: []Palliative Care Consult: []SGM: []Life Connection: [x][place]: 05/31/24 Today's imaging is very reassuring. Normal anatomy and echocardiogram without anomalies. Additionally, no evidence of twin-twin transfusion syndrome (TTTS), twin-anemia polycythemia sequence (TAPS), or selective growth restriction (sFGR). No interventions are recommended at this time. Can resume follow up with primary MFM. [] MRI: []Nationwide: [][facility]: [][facility]: [x][facility]: Delivery Recommendation: [] Term at local hospital [] Term at [facility] Surveillance Plan: [x] Survey at 20 [...] Encounters Date Type Department Care Team Description 09/11/2024 1:03 PM EDT - 09/11/2024 11:59 PM EDT Hospital En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 [address] [place] [address] Monochorionic 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; Gestational diabetes mellitus (GDM) in third trimester, gestational diabetes method of control unspecified 09/11/2024 Travel 08/29/2024 3:02 PM EDT - 08/29/2024 11:59 PM EDT Hospital Encounter [facility] US Imaging [address] [place] [address] Monochorionic 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 Discharge Disposition: Home 08/29/2024 Travel 08/29/2024 Orders Only Maternal- Medicine at [facility] [address] [place] [address] Quin Rodas RN Monochorionic 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 (Primary Dx); Gestational diabetes mellitus (GDM) in third trimester, gestational diabetes method of control unspecified 08/16/2024 Orders Only Maternal- Medicine at [facility] [address] [place] [address] Elizabeth Wang RN Monochorionic 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 (Primary Dx) 08/16/2024 Telephone Maternal- Medicine at [facility] [address] [place] [address] Aiden Reddy MD 08/15/2024 11:30 AM EDT - 08/15/2024 11:59 PM EDT Hospital Encounter [facility] US Imaging [address] [place] [address] Monochorionic 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 Discharge Disposition: Home 08/15/2024 Travel 07/31/2024 3:30 PM EDT - 07/31/2024 11:59 PM EDT Hospital Encounter [facility] US Imaging [address] [place] [address] Monochorionic 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 Discharge Disposition: Home 07/31/2024 Travel 07/17/2024 2:00 PM EDT Office Visit Maternal- Medicine at [facility] [address] [place] [address] Aiden Reddy MD Monochorionic diamniotic twin gestation in second trimester (Primary Dx) 07/17/2024 1:15 PM EDT - 07/17/2024 11:59 PM EDT Hospital Encounter [facility] US Imaging [address] [place] [address] Monochorionic diamniotic twin gestation in second trimester; Echogenic intracardiac focus of fetus on ultrasound; 24 weeks gestation of Discharge Disposition: Home 07/17/2024 Orders Only Maternal- Medicine at [facility] [address] [place] [address] Elizabeth Wang RN Monochorionic 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 (Primary Dx) 07/17/2024 Travel 07/05/2024 8:00 AM EDT - 07/05/2024 11:59 PM EDT Hospital Encounter [facility] US Imaging [address] [place] [address] Monochorionic diamniotic twin gestation in second trimester; Echogenic intracardiac focus of fetus on ultrasound; 24 weeks gestation of Discharge Disposition: Home 07/05/2024 Travel 06/24/2024 Orders Only Maternal- Medicine at [facility] [address] [place] [address] Lara Borrero RN Monochorionic diamniotic twin gestation in second trimester (Primary Dx); Echogenic intracardiac focus of fetus on ultrasound; 24 weeks gestation of 06/21/2024 11:30 AM EDT Office Visit Maternal- Medicine at [facility] [address] [place] [address] Kvng Jordan MD 24 weeks gestation of (Primary Dx); Monochorionic diamniotic twin gestation in second trimester 06/21/2024 8:27 AM EDT - 06/21/2024 11:59 PM EDT Hospital Encounter [facility] US Imaging [address] [place] [address] Monochorionic diamniotic twin gestation in second trimester; Echogenic intracardiac focus of fetus on ultrasound Discharge Disposition: Home 06/21/2024 Telephone Maternal- Medicine at [facility] [address] [place] [address] Oneida Brunson 06/21/2024 Travel 06/14/2024 Travel from Last 3 Months Family History Medical [...] 12.7 oz) 09/11/2024 3:33 PM EDT Height 167.6 cm (5' 5.98 ) 07/17/2024 2:16 PM ED T Body Mass Index 53.58 07/17/2024 2:16 PM EDT Plan of Treatment Health Maintenance Due Date Last Done Comments Depression Screening 2010 Adult BMI Follow Up Plan 2016 DTaP,Tdap and Td Vaccines (7 - Td or Tdap) 11/27/2021 11/28/2011, 10/29/2003, 12/29/1999, Additional history exists Influenza Vaccine 10/28/2024 01/30/2012 Adult BMI Screening 09/11/2025 09/11/2024 Tobacco Screening 09/11/2025 09/11/2024 Pap Smear 05/08/2027 05/07/2024 Medical Devices Not on file Procedures Procedure Name Priority Date/Time Associated Diagnosis Comments US MFM OB FOLLOW-UP, 1 FETUS Routine 09/11/2024 2:44 PM EDT Monochorionic 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 US MFM LMTD OB, 1 OR MORE FETUS Routine 08/29/2024 4:37 PM EDT Monochorionic 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 US MFM OB FOLLOW-UP, 1 FETUS Routine 08/15/2024 12:55 [...] twin , antepartum Obesity in , antepartum from Last 3 Months Results * US MFM OB FOLLOW-UP, 1 FETUS (09/11/2024 2:44 PM EDT) Only the most recent of8 resultswithin the time period is included. Anatomical Region Laterality Modality OB-GALLERY OR MUSEUM CURATOR Ultrasound 09/11/2024 2:07 PM EDT Narrative 09/11/2024 2:51 PM EDT NAME: HEATHER ADAMSON : 2000 SEX: F Accession Number: [id number] ORDERING PHYSICIAN: AIDEN REDDY REFERRING PHYSICIAN: DEMETRIUS BRYSON Coding ----- --------- Procedures 07996: Follow-up Ultrasound, per fetus. 2 Indication ----- --------- Obesity in , Franklin-Di twin , Supervision of high risk - A - EIF. History ----- --------- OB History 1. Para 0 [id number] Current ----- --------- Cell free DNA LOW [...] EFW (oz) 8 oz EFW by: Hadlock (UIK-RN-PU-FL) Extended Tibia 60.4 mm 35w 1d 57% Umberto Manager Support Services 5.8 mm Head / Face / Neck [...] EFW (oz) 14 oz EFW by: Hadlock (RUV-UD-UE-FL) Extended Tibia 61.3 mm 35w 4d 70% [...] OB provider unless otherwise specified by MFM. Procedure Note Elvie Montero MD - 09/11/2024 NAME: HEATHER ADAMSON : 2000 SEX: F Accession Number: [id number] ORDERING PHYSICIAN: AIDEN REDDY REFERRING PHYSICIAN: DEMETRIUS BRYSON Coding ----- --------- Procedures 18704: Follow-up Ultrasound, per fetus. 2 Indication ----- --------- Obesity in , Franklin-Di twin , Supervision of high riskpregnancy - A - EIF. History ----- --------- OB History 1. Para 0 [id number] Current ----- --------- Cell free DNA LOW [...] EFW (oz) 8 oz EFW by: Hadlock (YRH-KL-AH-FL) Extended Tibia 60.4 mm 35w 1d 57% Umberto Manager Support Services 5.8 mm Head / Face / Neck [...] EFW (oz) 14 oz EFW by: Hadlock (QOX-FA-PT-FL) Extended Tibia 61.3 mm 35w 4d 70% [...] otherwise specified by M. Aiden Reddy MD [facility] ORDERABLES Final Resul t from Last 3 Months Insurance [employer]
--- OUTSIDE RECORDS SUMMARY | 2024-09-12 19:40 | XMS_ITS | Encounter Summary ---
Author Organization [facility] Address [address] [facility] [place] [address] Care Team Providers Care Shank Paperer Name Role Phone Edith Ford MD Primary Care Provider +1- [phone] Encounter Details Date Type Department Care Team (Late Contact Info) Description 08/28/2024 Abstract [facility] [address] [address] Dhruv Recinos DO [address] [place] [address] Dr Art Jalloh, [facility]11 Social History Tobacco [...] 09/23/2024 1:50 PM EDT Office Visit [facility] [address] [place] [address] Talya Reyna PA [address] [place] [address] documented as of this encounter Visit Diagnoses Not on filedocumented in this encounter Care Teams Shank Paperer Relationship Specialty Start Date End Date Edith Ford MD [address] [place] [address] PCP - General Family Medicine 09/01/22 documented as of this encounter
--- OUTSIDE RECORDS SUMMARY | 2024-09-12 19:40 | XMS_ITS | Encounter Summary ---
Author Organization [facility] tem Address [facility] [id number] [address] [place] [address] Care Team Providers Care Journalism Teacher Name Role Phone Unavailable Primary Care Provider Unavailabl e Reason for Referral * Consultation (Routine) - Pending Review Specialty Diagnoses / Procedures Referred By Contelida t Referred To Contact Maternal and Medicine Diagnoses Monochorionic 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 Gestational diabetes mellitus (GDM) in third trimester, gestational diabetes method of control unspecified Dhruv Recinos DO [address] [place] [address] Phone: tel: fax: Maternal- Medicine at [address] [address] Phone: tel: fax: Referral ID Status Reason Start Date Expiration Date Visits Requested Visits Authorized [id number] Pending Review Specialty Services Required 08/29/2024 08/29/2025 1 1 Encounter Details Date Type Department Care Team (Late st Contact Info) Description 08/29/2024 Orders Only Maternal- Medicine at [address] [address] Quin Rodas RN Monochorionic diamniotic twin gestation [...] as of this encounter Plan of Treatment Scheduled Referrals Name Type Priority Associated Diagnoses Orde r Schedule Maternal- Medicine at [facility] - Nutrition and Diabetes Education Outpatient Referral Routine Monochorionic 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 Gestational diabetes mellitus (GDM) in third trimester, gestational diabetes method of control unspecified 1 Occurrences starting 08/29/2024 until 08/29/2025 documented as of this encounter Visit Diagnoses Diagnosis Monochorionic 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- Primary Gestational diabetes mellitus (GDM) in third trimester, gestational diabetes method of control unspecified documented in this encounter
--- OUTSIDE RECORDS SUMMARY | 2024-09-12 19:40 | XMS_ITS | Encounter Summary ---
Author Organization [facility] Address [address] [place] [facility] [place] [address] Care Team Providers Care Paleologist Name Role Phone Edith Ford MD Primary Care Provider +1- [phone] Encounter Details Date Type Department Care Team (Late Contact Info) Description 03/22/2024 Abstract [facility] [address] [place] [address] Dhruv Recinos DO [address] [place] [address] Dr Art Jalloh, [facility]11 Social [...] Visit [facility] [address] [place] [address] Talya Reyna PA [address] [place] [address] documented as of this encounter Visit Diagnoses Not on filedocumented in this encounter Care Teams Paleologist Relationship Specialty Start Date End Date Edith Ford MD [address] [place] [address] PCP - General Family Medicine 09/01/22 documented as of this encounter
--- OUTSIDE RECORDS SUMMARY | 2024-09-12 19:40 | XMS_ITS | Encounter Summary ---
Author Organization [facility] Address [address] [place] [address] Care Team Providers Care Field Services Manager Name Role Phone Edith Ford MD Primary Care Provider +1- [phone] Encounter Details Date Type Department Care Team ([facility] Contact Info) Description 09/02/2024 Abstract [facility] [address] [facility] [place] [address] Miladis Moreno [place] Social History Tobacco Use Types Packs/Day Years [...] Visit [facility] OB [address] [place] [address] Talya Reyna PA [address] [place], [place] [address] [place], [place] [address] documented as of this encounter Visit Diagnoses Not on filedocumented in this encounter Care Teams Field Services Manager Relationship Specialty Start Date End Date Edith Ford MD [address] [place] [address] PCP - General Family Medicine 09/01/22 documented as of this encounter
--- OUTSIDE RECORDS SUMMARY | 2024-09-12 19:40 | XMS_ITS | Encounter Summary ---
Author Organization [facility] Address [address] [facility] [place] [address] Care Team Providers Care Coding Quality Coordinator Name Role Phone Edith Ford MD Primary Care Provider +1- [phone] Encounter Details Date Type Department Care Team (Late Contact Info) Description 06/17/2024 Abstract [facility] [address] [place] [address] Dhruv Recinos DO [address] [place] [address] Dr Art Jalloh, [facility]11 Social History Tobacco Use Types [...] Visit [facility] OB [address] [place] [address] Talya Reyna PA [address] [facility] [place] [address] documented as of this encounter Visit Diagnoses Not on filedocumented in this encounter Care Teams Coding Quality Coordinator Relationship Specialty Start Date End Date Edith Ford MD [address] [place] [address] PCP - General Family Medicine 09/01/22 documented as of this encounter
--- OUTSIDE RECORDS SUMMARY | 2024-09-12 19:40 | XMS_ITS | Encounter Summary ---
Author Organization [facility] Address [address] [facility] [place] [address] Care Team Providers Care Loft Worker Head Name Role Phone Edith Ford MD Primary Care Provider +1- [phone] Encounter Details Date Type Department Care Team (Late Contact Info) Description 08/16/2024 Abstract [facility] [address] [place] [address] Dhruv Recinos DO [address] [place] [address] Dr Art Jalloh, [facility]11 Social History Tobacco Use Types [...] 09/23/2024 1:50 PM EDT Office Visit [facility] OB [address] [place] [address] Talya Reyna PA [address] [facility] [place] [address] documented as of this encounter Visit Diagnoses Not on filedocumented in this encounter Care Teams Loft Worker Head Relationship Specialty Start Date End Date Edith Ford MD [address] [place] [address] PCP - General Family Medicine 09/01/22 documented as of this encounter
--- OUTSIDE RECORDS SUMMARY | 2024-09-12 19:40 | XMS_ITS | Encounter Summary ---
Author Organization [facility] Address [address] [place] [address] Care Team Providers Care [employer] Systems Administrator Name Role Phone Edith Ford MD Primary Care Provider [phone] Encounter Details Date Type Department Care Team (Late st Contact Info) Description 04/26/2024 External Result Encounter [facility] OB [address] [place] [address] Demetrius Recinos, DO [address] [facility] [address] Art Jalloh, [facility] Social History Tobacco Use Types Packs/Day Years [...] EDT Office Visit [facility] [address] [place] [address] Talya Reyna PA [address] [place] [address] documented as of this encounter Procedures Procedure Name Priority Date/Time Associated Diagnosis Comments RECURRENT VAGINITIS (HTRX) Routine 05/07/2024 10:57 AM EDT US OB 14+ WEEKS ANATOMY SCAN 04/26/2024 1:20 PM EST documented in this encounter Results * (ABNORMAL) RECURRENT VAGINITIS (HTRX) (05/07/2024 10:57 AM EDT) Pathologist [facility] ATOPOBIUM VAGINAE 17.085(A) 19.961 - 24.689 ppm 05/08/2024 7:28 AM EDT [facility] ATOPOBIUM VAGINAE Detected(A) 19.961 - 24.689 ppm 05/08/2024 7:28 AM EDT [facility] BVAB 2,3 (BACTERIAL VAGINOSIS ASSOCIATED BACTERIA 2, 3); MOBILUNCUS SPP 12.518(A) 19.961 - 24.689 ppm 05/08/2024 7:28 AM EDT [facility] BVAB 2,3 (BACTERIAL VAGINOSIS ASSOCIATED BACTERIA 2, 3); MOBILUNCUS SPP Detected(A) 19.961 - 24.689 ppm 05/08/2024 7:28 AM EDT [facility] ALYSON ALBICANS, PARAPSILOSIS, TROPICALIS 27.203(A) 19.961 - 30.770 ppm 05/08/2024 7:28 AM EDT [facility] ALYSON ALBICANS, PARAPSILOSIS, TROPICALIS Detected(A) 19.961 - 30.770 ppm 05/08/2024 7:28 AM EDT [facility] ALYSON GLABRATA 0.000 23.000 - 32.138 ppm 05/08/2024 7:28 AM EDT [facility] ALYSON GLABRATA Not Detected 23.000 - 32.138 ppm 05/08/2024 7:28 AM EDT [facility] ALYSON KRUSEI 0.000 23.000 - 32.271 ppm 05/08/2024 7:28 AM EDT [facility] ALYSON KRUSEI Not Detected 23.000 - 32.271 ppm 05/08/2024 7:28 AM EDT [facility] CHLAMYDIA TRACHOMATIS 0.000 23.000 - 31.467 ppm 05/08/2024 7:28 AM EDT [facility] CHLAMYDIA TRACHOMATIS Not Detected 23.000 - 31.467 ppm 05/08/2024 7:28 AM EDT [facility] GARDNERELLA VAGINALIS 21.006(A) 19.961 - 24.689 ppm 05/08/2024 7:28 AM EDT [facility] GARDNERELLA VAGINALIS Detected(A) 19.961 - 24.689 ppm 05/08/2024 7:28 AM EDT [facility] MEGASPHAERA (TYPES 1, 2) 14.174(A) 19.961 - 24.689 ppm 05/08/2024 7:28 AM EDT [facility] MEGASPHAERA (TYPES 1, 2) Detected(A) 19.961 - 24.689 ppm 05/08/2024 7:28 AM EDT [facility] NEISSERIA GONORRHOEAE 0.000 23.000 - 32.117 ppm 05/08/2024 7:28 AM EDT [facility] NEISSERIA GONORRHOEAE Not Detected 23.000 - 32.117 ppm 05/08/2024 7:28 AM EDT [facility] TRICHOMONAS VAGINALIS 0.000 23.000 - 32.119 ppm 05/08/2024 7:28 AM EDT [facility] TRICHOMONAS VAGINALIS Not Detected 23.000 - 32.119 ppm 05/08/2024 7:28 AM EDT [facility] MYCOPLASMA GENITALIUM 0.000 19.961 - 24.689 ppm 05/08/2024 7:28 AM EDT [facility] MYCOPLASMA GENITALIUM Not Detected 19.961 - 24.689 ppm 05/08/2024 7:28 AM EDT [facility] ERMB, C; MEFA 18.407(A) 23.000 - 27.611 ppm 05/08/2024 7:28 AM EDT [facility] ERMB, C; MEFA Detected(A) 23.000 - 27.611 ppm 05/08/2024 7:28 AM EDT [facility] TET B, TET M 18.970(A) 23.000 - 27.778 ppm 05/08/2024 7:28 AM EDT [facility] TET B, TET M Detected(A) 23.000 - 27.778 ppm 05/08/2024 7:28 AM EDT [facility] Tissue 05/07/2024 10:5 7 AM EDT 05/08/2024 2:53 AM EDT us Talya OJEDA LAB BLOOD ORDERABLES [facility] [address] [place] [address] * US OB 14+ weeks anatomy scan (04/26/2024 1:20 PM EST) Anatomical Region Laterality Modality Body Ultrasound 04/26/2024 1:20 PM EST Narrative 04/26/2024 1:20 PM EST [facility] NAME: JUAN DIEGORAMEZ SHEPPARDJoann Shelby : 2000 SEX: F Accession Number: [id number] ORDERING PHYSICIAN: DEMETRIUS RECINOS REFERRING PHYSICIAN: DEMETRIUS RECINOS Coding ----- --------- Procedures [id number]: Ultrasound, uterus, real time with image documentation, and maternal evaluation, after first trimester (> or = 14 weeks 0 days), transabdominal approach; single or first gestation [id number]: Ultrasound, uterus, real time with image documentation, and maternal evaluation, after first trimester (> or = 14 weeks 0 days), transabdominal approach; each additional gestation Indication ----- --------- Viability, Supervision of high risk , Obesity in , [place] twin History ----- --------- OB History 1. Para 0 [id number] Current ----- --------- Cell free DNA LOW [...] 0 lb 5 oz EFW by [facility] ([id number]-FL) EFW discordance 2.8 % Head / Face [...] 0 lb 5 oz EFW by [facility] ([id number]-CH-FM-FL) EFW discordance 2.8 % Head / Face [...] Thorax RVOT view. LVOT view. 3-vessel view. 8-hvjnzz-patojcl view. Interventricular septum. Great vessels. Cardiac position. [...] Thorax RVOT view. LVOT view. 3-vessel view. 3-rwlciv-bcujdeq view. Aortic arch view. Bicaval view. Ductal [...] - 04/26/2024 THIS [facility] NAME: HEATHER ADAMSON : 2000 SEX: F Accession Number: [id number] ORDERING PHYSICIAN: DEMETRIUS RECINOS REFERRING PHYSICIAN: DEMETRIUS RECINOS Coding ----- --------- Procedures [id number]: Ultrasound, uterus, real time with imagedocumentation, and maternal evaluation, after first trimester (> or = 14 weeks 0 days), transabdominalapproach; single or first gestation [id number]: Ultrasound, uterus, real time with imagedocumentation, and maternal evaluation, after first trimester (> or = 14 weeks 0 days), transabdominalapproach; each additional gestation Indication ----- --------- Viability, Supervision of high risk , Obesity in ,[place] twin History ----- --------- OB History 1. Para 0 [id number] Current ----- --------- Cell free DNA LOW [...] 0 lb 5 oz EFW by [facility] ([id number]-[id number]-FL) EFW discordance 2.8 % Head / Face [...] 0 lb 5 oz EFW by [facility] ([id number]-[id number]-SQ-FL) EFW discordance 2.8 % Head / Face [...] Thorax RVOT view. LVOT view. 3-vessel view. 1-yzccuz-dldhvad view.Interventricular septum. Great vessels. Cardiac position. Cardiac [...] Thorax RVOT view. LVOT view. 3-vessel view. 2-necpbz-idqzens view.Aortic arch view. Bicaval view. Ductal arch [...] 2.1 cm. Recommendations ----- --------- Please see [facility] documentation from today. The patient is [...] on filedocumented in this encounter Care Teams [employer] Systems Administrator Relationship Specialty Start Date End Date Edith Frod MD [address] [place] [address] PCP - General Family Medicine 09/01/22 documented as of this encounter
--- OUTSIDE RECORDS SUMMARY | 2024-09-12 19:42 | XMS_ITS | CCD ---
Author Organization [facility] Care Team Providers Care Carding Machine Operator Name Role Phone Edith Ford [...] Unavailable Edith Ford MD Primary Care Provider [phone] Unavailable Primary Care Provider Unavailabl e Unavailable [...] P. Referring Unavailable AYAH BENTON Attending Unavailab le REEDMEENU Attending Unavailable AYAH BENTON Referring Unavailab le JORJE, DHRUV R. Primary Care Unavailable VANCE, TALYA L Referring Unavailable JORJE, DHRUV R Referring Unavailable Marker DO, Cici Gama Attending Provider Anayeli, Cici Gama Attending Unavailable Marker, Cici Gama Admitting Unavailable JORJE, DHRUV Attending Unavailable VANCE, TALYA Attending Unavailable JORJE, DHRUV Attending Unavailable VANCE, TALYA Attending Unavailable JORJE, DHRUV Attending Unavailable VANCE, TALYA Attending Unavailable JORJE, DHRUV Attending Unavailable VANCE, TALYA L Referring Unavailable DOCHEVA, [...] Referring Unavailable JORJE, DHRUV R Referring Unavailable Allergies Allergy Classification Reported Allergen(s) Allergy Type Date of Onset Reaction(s) Facility Theophylline (1 source) Theophylline Drug Allergy 1 [facility] (20 sources) SUMAtriptan; Translations: [sumatriptan] Drug Allergy 7 Pharyngeal swelling (finding), Shortness of breath [facility] (18 sources) Theophylline; Translations: [theophylline] Drug Allergy 5 Hives, Rash [facility] (1 source) Theophylline Drug Allergy 9 [facility] (20 sources) Theophyllines; Translations: [THEOPHYLLINES] Drug Intolerance 1 Hives, Rash [facility] (1 source) SUMAtriptan; Translations: [SUMATRIPTAN SUCCINATE] Drug Allergy 7 [facility] Repository (1 source) Theophylline Drug Allergy 1 [facility] Repository Medications Current Medications Medication Drug Class(es) Dates Sig (Normalized) Sig (Original) acetaminophen 500 mg oral tablet (14 sources) take 2 tablets by mouth every [...] by mouth 1 (one) time 04/26/2024 Active Blood Glucose Monitoring Suppl ([employer] Blood Glucose Meter) device (1 source) Start: 08-28-2024 Blood Glucose Monitoring Suppl ([employer] Blood Glucose Meter) device Indications: Gestational diabetes mellitus (GDM), antepartum, gestational diabetes method of control unspecified (HHS-HCC) , Elevated glucose tolerance test 1 kit in the morning and 1 kit at noon and 1 kit in the evening and 1 kit before bedtime. 1 each 08/28/2024 Active cyclobenzaprine hydrochloride 10 mg oral tablet [...] daily June 29, 2020 9:12am ferrous sulfate 325 mg oral tablet (2 sources) take 1 tablet by mouth once daily at breakfast ferrous sulfate 325 (65 FE) MG tablet Take 1 tablet (325 mg total) by mouth daily with breakfast. Active take 1 tablet by mouth once sabrina y Ferrous Sulfate (IRON PO) Take 1 tablet by mouth 1 time a day. Active folic acid 1 mg oral tablet (20 sources) Start: 04-26-2024 End: 11-22-2024 take 1 tablet by mouth in the morning folic acid (Folvite) 1 MG tablet Take 1 mg by mouth in the morning. 04/26/2024 11/22/2024 Active isopropyl alcohol 0.7 ml/ml medicated pad (1 source) Start: 08-28-2024 Alcohol Swabs (Alcohol Prep Pad) 70 % pads Indications: Gestational diabetes mellitus (GDM), antepartum, gestational diabetes method of control unspecified ([facility]) , Elevated glucose tolerance test Apply 1 Pad topically Daily Use four times daily to check FSBS. 150 each 3 08/28/2024 Active lidocaine 0.05 mg/mg medicated patch (2 sources) Antiarrhythmic, Amide Local Anesthetic Start: 06-29-2020 apply 1 dose topically once daily Lidocaine Active 1 PATCH TOPICAL Daily June 29, 2020 9:12am leave on most painful area for up to 12 hrs magnesium oxide 400 mg oral tablet (9 sources) Start: 07-31-2024 End: 08-30-2024 take 1 tablet by mouth once daily magnesium oxide (Mag-Ox) 400 MG tablet Indications: Nonintractable headache, unspecified chronicity pattern, unspecified headache type Take 1 tablet (400 mg) by mouth Daily 30 tablet 6 07/31/2024 08/30/2024 Active 24 hr metFORMIN hydrochloride 500 mg extended release oral tablet (20 sources) Biguanide Start: 05-08-2024 take 1 tablet [...] Active ondansetron 4 mg disintegrating oral tablet (17 sources) Serotonin-3 Receptor Antagonist Start: 03-08-2024 End: [...] () 28 mg iron- 800 mcg tablet (14 sources) take 1 tablet by mouth in the morning PNV cmb#95-ferrous fumarate-FA () 28 mg iron- 800 mcg tablet Take 1 tablet by mouth in the morning. Active polysaccharide iron complex 391 mg oral capsule (6 sources) Start: 08-21-2024 End: 09-20-2024 take 1 capsule by mouth once daily iron polysaccharides (ProFe) 391.3 (180 Fe) MG capsule Indications: Other iron deficiency anemia Take 1 capsule (391.3 mg) by mouth Daily 30 capsule 6 08/21/2024 09/20/2024 Active Vit w/Xf-Zbyagtlrk-ZW (PNV PO) (1 source) Vit w/Vk-Sexbnderx-UT (PNV PO) Take by mouth. Active Vit-Fe Fumarate-FA ( Vitamins) 28-0.8 MG tablet (19 sources) Start: 03-08-2024 End: 03-08-2025 take 1 tablet by mouth once daily Vit-Fe Fumarate-FA ( Vitamins) 28-0.8 MG tablet Indications: , unspecified gestational age ([facility]) , Encounter for supervision of normal first in first trimester ([facility]) Take 1 tablet by mouth Daily 30 tablet 11 03/08/2024 03/08/2025 Active Start: 03-08-2024 End: 03-08-2025 take 1 tablet by mouth once daily Vit-Fe Fumarate-FA ( Vitamins) 28-0.8 MG tablet Indications: , unspecified gestational age , Encounter for supervision of normal first in first trimester Take 1 tablet by mouth Daily 30 tablet 11 03/08/2024 03/08/2025 Active sertraline 100 mg oral tablet (16 sources) Serotonin Reuptake Inhibitor Start: 06-08-2023 End: [...] Translations: [Other iron deficiency anemias] 08-21-2024 Episodic Diabetes or abnormal glucose tolerance complicating ; childbirth; or the puerperium (3 sources) Gestational diabetes mellitus; Translations: [Gestational diabetes mellitus in , unspecified control] 08-29-2024 Episodic E Codes: Natural/environment (1 source) Other [...] , unspecified trimester] Onset: 06-14-2024 Chronic Other ear and sense organ disorders [...] of ] 08-05-2024 Episodic Residual codes; unclassified (2 sources) Gestation period, 33 weeks; Translations: [33 weeks gestation of ] 08-21-2024 Episodic Residual codes; unclassified (2 sources) Gestation period, 34 weeks; Translations: [34 weeks gestation of ] 08-28-2024 Episodic Residual codes; unclassified (1 source) 24 weeks gestation of ; Translations: [24 weeks gestation of ] Onset: 07-05-2024 Episodic Spondylosis; intervertebral disc disorders; other back [...] 12-01-2021 Episodic Other aftercare (1 source) Other long term acute care registered nurse (current) drug therapy; Translations: [OTH PROPOSAL DEVELOPMENT MANAGER CURRENT DRUG THERAPY] Onset: 01-24-2022 Episodic Other aftercare (1 source) long term acute care registered nurse (current) use of oral hypoglycemic drugs; Translations: [[facility] USE ORAL HYPOGLYCEMIC DX] Onset: 12-22-2021 Episodic Other complications of (12 sources) 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 ; Translations: [Other mental disorders complicating , unspecified trimester] Onset: 04-26-2024 04-26-2024 Episodic Other complications of (17 sources) heart echogenicity on obstetric ultrasound scan; [...] NEGATED: Highlighted row has been ruled out!Unclassified (19 sources) No known active problems 06-29-2023 Results Test Name Value Interpretation Reference Range Facility GLUCOSE TOLERANCE 3 HOURon 0 08-28-2024 GLUCOSE TOLERANCE 3 HOUR High mg/dL [facility] Comment on above: GLU FAST 95H (<95) C ol: 08/28/24 0712 GLU 1HR 174 (<180) Col: 08/28/24 0814 GLU 2HR 173H (<155) Col: 08/28/24 0916 GLU 3HR 114 (<140) Col: 08/28/24 1018 Interpretation and review of laboratory results [facility] macro (dipstick) panel (U)on 08-21-2024 Bilirubin, UA Negative Negative - 4(70) +++ mg/dL [facility] Blood, UA Negative Negative - 50 Duane/mcL [facility] Clarity, UA Clear [facility] Color, UA Yellow [facility] Glucose, UA Negative Negative - 1999(110) ++++ mg/dL [facility] Interpretation and review of laboratory results Abnormal [facility] Ketones, UA Positive Negative - 160(16) ++++ mg/dL [facility] Leukocytes, UA Moderate Negative - 500+++ Belinda/mcL [facility] Nitrite, UA Negative Negative - Positive [facility] pH, UA 7 5 - 9 [facility] Protein, UA Negative Negative - 1999(20) ++++ mg/dL [facility] Spec Grav, UA 1.02 1 - 1.03 [facility] Urobilinogen, UA 0.2 0.2 - 12 mg/dL [facility] Urinalysis macro (dipstick) panel (U)on 08-05-2024 Bilirubin, UA Negative Negative - 4(70) +++ mg/dL [facility] Blood, UA Negative Negative - 50 Duane/mcL [facility] Clarity, UA Clear [facility] Color, UA Yellow [facility] Glucose, UA Negative Negative - 1999(110) ++++ mg/dL [facility] Interpretation and review of laboratory results Abnormal [facility] Ketones, UA Negative Negative - 160(16) ++++ mg/dL [facility] Leukocytes, UA Trace Negative - 500+++ Belinda/mcL [facility] Nitrite, UA Negative Negative - Positive [facility] pH, UA 6 5 - 9 [facility] Protein, UA Positive Negative - 1999(20) ++++ mg/dL [facility] Healthcare Spec Grav, UA 1.025 1 - 1.03 [facility] Urobilinogen, UA 1.0 0.2 - 12 mg/dL [facility] Urine Cultureon 07-30-2024 Bacteria identified Cx Nom (U) >100,000 colonies/ml mixed bacterial skin contaminants 2 Days PERFORMED BY: [facility] [place] [address] PATHOLOGIST SENIOR ADMINISTRATOR SUPPORT FRANCIA GÓMEZ M.D. Normal [facility] Comment on above: Performed By: #### C UU #### [facility] [address] [place] [address] [facility] GLUCOSE 1 HOURon 07-16-2024 Glucose [Mass/Vol] 157 mg/dL High NINF - 13 0 mg/dL [facility] Interpretation and review of laboratory results Abnormal [facility] Urinalysis macro (dipstick) panel (U)on 06-26-2024 Bilirubin, UA Negative Negative - 4(70) +++ mg/dL [facility] Blood, UA Negative Negative - 50 Duane/mcL [facility] Clarity, UA Clear [facility] Color, UA Yellow [facility] Glucose, UA Negative Negative - 1999(110) ++++ mg/dL [facility] Interpretation and review of laboratory results Abnormal [facility] Ketones, UA Negative Negative - 160(16) ++++ mg/dL [facility] Leukocytes, UA Trace Negative - 500+++ Belinda/mcL [facility] Nitrite, UA Negative Negative - Positive [facility] pH, UA 7.5 5 - 9 [facility] Protein, UA Negative Negative - 1999(20) ++++ mg/dL [facility] Healthcare Spec Grav, UA 1.02 1 - 1.03 [facility] Health care Urobilinogen, UA 0.2 0.2 - 12 mg/dL [facility] ECHOCARDIOGRAM FETALon 05-31 ECHOCARDIOGRAM [facility] [address] [place] [id number] ECHOCARDIOGRAM REPORT Name: JUAN DIEGO FULTON : 2000 ALT. ID: Age: 23 years Study Date: 05/31/2024 12:45:12 PM Patient Class: Outpatient Patient Location: [facility] Referring Physician: [facility] Diagnosing Physician: [id number] Meenu Reed MD Wood Science Professor: Marita Ko [facility] Procedure type: Complete [id number], Complete Doppler and Spectral Doppler-87924, Color Doppler-69264, Umbilical Doppler-92096 and Multiple Gestation (Twins). Reason for test: [...] and Pulm (more content not included)... Normal [facility] Urinalysis macro (dipstick) panel (U)on 04-09-2024 Bilirubin, UA Negative Negative - 4(70) +++ mg/dL [facility] Blood, UA Negative Negative - 50 Duane/mcL [facility] Clarity, UA Clear [facility] re Color, UA Yellow [facility] Glucose, UA Negative Negative - 1999(110) ++++ mg/dL [facility] Interpretation and review of laboratory results Abnormal [facility] re Ketones, UA Negative Negative - 160(16) ++++ mg/dL [facility] Leukocytes, UA Positive Negative - 500+++ Belinda/mcL [facility] Comment on above: large Nitrite, UA Negative Negative - Positive [facility] pH, UA 7 5 - 9 [facility] e Protein, UA Trace Negative - 1999(20) ++++ mg/dL [facility] Spec Grav, UA 1.02 1 - 1.03 [facility] Urobilinogen, UA 0.2 0.2 - 12 mg/dL [facility] ALL CBC WITH AUTO DIFFon BASOPHILS ABSOLUTE AUTO 0 [facility] Basophils/100 WBC (Bld) 0.3 % 0.2 - 2.0 % [facility] Eosinophils/100 WBC (Bld) 0.9 % 0.9 - 7.0 % [facility] Erythrocyte distribution width (RBC) [Ratio] 14.1 % 11.0 - 15.0 % [facility] IMMATURE GRANULOCYTES ABS AUTO 0.05 High [facility] Immature granulocytes/100 WBC (Bld) 0.4 % 0.0 - 0.5 % [facility] Interpretation and review of laboratory results [facility] LYMPHOCYTES ABSOLUTE AUTO 2.6 [facility] Lymphocytes/100 WBC (Bld) 18.5 % Low 20.5 - 60.0 % [facility] MCH (RBC) [Entitic mass] 25.9 pg Low 26.7 - 34.0 pg [facility] MCHC (RBC) [Mass/Vol] 32.7 g/dL 29.9 - 35.2 g/dL [facility] MCV (RBC) [Entitic vol] 79.2 fL Low 81.0 - 99.0 fL [facility] MONOCYTES ABSOLUTE AUTO 0.6 [facility] Monocytes/100 WBC (Bld) 4 % 1.7 - 12.0 % [facility] NEUTROPHILS ABSOLUTE AUTO 10.7 High [facility] Neutrophils/100 WBC (Bld) 75.9 % High 43.0 - 75.0 % [facility] Platelet mean volume (Bld) [Entitic vol] 11.7 fL 9.5 - 13.5 fL [facility] TBH EO # 0.1 [facility] e TB PLT 302 [facility] e TB RBC 4.56 [facility] e TB WBC 14.1 High [facility] e [facility] CBC without diffon Rbc Mcv (Fl) By Automated Count 79.2 [facility] Laboratory - Hematology and Cell countson 03-15-2024 Hematocrit (Bld) [Volume fraction] 36.1 % [facility] Hemoglobin (Bld) [Mass/Vol] 11.8 g/dL [facility] No Panel Informationon 03-15 [facility] e Rubella IGG immune statuson 03-15-2024 Rubella immune IgG 0.9 [facility] Syphilis Total(Unknown Syphi lis Status)on 03-15-2024 Syphilis Non-Reactive [facility] Type and screenon 03-15-2024 Abo/Rh(D) Negative [facility] HCG ( test) Ql (U)o n 03-08-2024 Interpretation and review of laboratory results Abnormal [facility] re Preg Test, Ur Positive Negative [facility] Urinalysis macro (dipstick) panel (U)on 03-08-2024 Bilirubin, UA Negative Negative - 4(70) +++ mg/dL [facility] Blood, UA Negative Negative - 50 Duane/mcL [facility] Clarity, UA Clear [facility] re Color, UA Yellow [facility] e Glucose, UA Negative Negative - 2000(110) ++++ mg/dL [facility] Interpretation and review of laboratory results Abnormal [facility] re Ketones, UA Negative Negative - 160(16) ++++ mg/dL [facility] Leukocytes, UA Moderate Negative - 500+++ Belinda/mcL [facility] Nitrite, UA Negative Negative - Positive [facility] pH, UA 7 5 - 9 [facility] e Protein, UA Negative Negative - 2000(20) ++++ mg/dL [facility] Spec Grav, UA 1.015 1 - 1.03 [facility] Urobilinogen, UA 0.2 0.2 - 12 mg/dL [facility] Referrals Officeon 3 Referrals Office [id number]# 1.00CD:127 Normal [facility] [facility] CULTURE URINEon 03-13-2022 CULTURE URINE Culture Observations : HEAVY GROWTH OF MIXED GENITAL TING. NO POTENTIAL PATHOGENS SEEN. Normal [facility] Comment on above: Performed By: #### C MP #### [facility] [address] [place] [address] Dr. Paz Burk ER URINE PROFILEon 3 Bilirubin Ql (U) Negative Normal NEGATIVE [facility] Comment on above: Performed By: #### PEGGY STYLES, ERUR #### [facility] [address] [place] [address] Dr. Paz Burk Clarity (U) CLEAR Normal CLEAR [facility] Comment on above: Performed By: #### PEGGY STYLES, ERUR #### [facility] [address] [place] [address] Dr. Paz Burk Color (U) LT. YELLOW Normal YELLOW [facility] Comment on above: Performed By: #### PEGGY STYLES, ERUR #### [facility] [address] [place] [address] Dr. Paz POST A micrscopic examination will be performed if indicated. Normal [facility] Comment on above: Performed By: #### P PEGGY HERNANDEZ, ERUR #### [facility] [address] [place] [address] Dr. Paz Burk Glucose Ql (U) Negative Normal NEGATIVE [facility] Comment on above: Performed By: #### P PEGGY HERNANDEZ, ERUR #### [facility] [address] [place] [address] Dr. Paz Burk Hemoglobin Ql (U) Negative Normal NEGATIVE [facility] Comment on above: Performed By: #### P REGU, UMICRO, ERUR #### [facility] [address] [address] [address] Paz Burk Ketones Ql (U) Negative Normal NEGATIVE [facility] Comment on above: Performed By: #### P REGU, UMICRO, ERUR #### [facility] [address] [address] [address] Paz Burk LEUKOCYTES MODERATE Abnormal NEGATIVE [facility] Comment on above: Performed By: #### P REGU, UMICRO, ERUR #### [facility] [address] [place] [address] Dr. Paz Burk Nitrite Ql (U) Negative Normal NEGATIVE [facility] Comment on above: Performed By: #### P REGU, UMICRO, ERUR #### [facility] [address] [place] [address] Dr. Paz Burk pH (U) 6.0 [pH] Normal 5-9 [facility] Comment on above: Performed By: #### P REGU UMICRO, ERUR #### [facility] [address] [place] [address] Dr. Paz Burk SPEC GRAVITY 1.025 Normal 1.005-<=1.025 [facility] Comment on above: Performed By: #### P REGU UMICRO, ERUR #### [facility] [address] [address] [address] Paz Burk UA PROTEIN Negative Normal NEGATIVE/ TRACE [facility] Comment on above: Performed By: #### P REGU, UMICRO, ERUR #### [facility] [address] [address] [address] Paz Burk UR MICRO IND INDICATED Normal [facility] Comment on above: Performed By: #### P REGU, UMICRO, ERUR #### [facility] [address] [place] [address] Dr. Paz Burk Urobilinogen Qn (U) 0.2 {Ara'U}/dL Normal 0.2 - 1. 0 [facility] Comment on above: Performed By: #### P PEGGY HERNANDEZ, ERUR #### [facility] [address] [address] [address] Paz Burk URon 03-13-2022 , QUAL Negative Normal NEGATIVE [facility] Comment on above: Performed By: #### PEGGY STYLES, ERUR #### [facility] [address] [address] [address] Paz Burk URINE MICROSCOPIC ONLYon BACTERIA MODERATE Abnormal NONE SEEN [facility] Comment on above: Performed By: #### PEGGY STYLES, ERUR #### [facility] [address] [place] [address] Dr. Paz Burk Bacteria identified Cx Nom (U) INDICATED Normal [facility] Comment on above: Performed By: #### PEGGY STYLES, ERUR #### [facility] [address] [place] [address] Dr. Paz Burk CAST NONE SEEN Normal NONE SEEN [facility] Comment on above: Performed By: #### PEGGY STYLES, ERUR #### [facility] [address] [place] [address] Dr. Paz Burk Crystals LM Nom (Urine sed) NONE SEEN Normal NONE SEEN [facility] Comment on above: Performed By: #### PEGGY STYLES, ERUR #### [facility] [address] [address] [address] Paz Burk Epithelial cells LM Ql (Urine sed) MODERATE Abnormal NONE SEEN /RARE [facility] Comment on above: Performed By: #### PEGGY STYLES, ERUR #### [facility] [address] [place] [address] Dr. Paz Burk MUCOUS TRACE Abnormal NONE SEEN [facility] Comment on above: Performed By: #### PEGGY STYLES, ERUR #### [facility] [address] [place] [address] Dr. Paz Burk RBC 0-2 Normal 0-2 [facility] Comment on above: Performed By: #### P PEGGY HERNANDEZ, ERUR #### [facility] [address] [place], [place] [address] Dr. Paz Burk WBC 50-75 Abnormal NONE SEEN [facility] Comment on above: Performed By: #### P PEGGY HERNANDEZ, ERUR #### [facility] [address] [place], [place] [address] Dr. Paz Burk Coding Summary.on 03-04-2022 Coding Summary. CD:[id number] G h0bWw+PGhlYWQ+CK1SHYB aL45eeSDndR0VE1nVSX1L UMXMRQPYAZ1HOV3koGQ1M OdfF1YbtwMm NvhtuUBvCW00MSy4IUQ0d CpmRLvyfQ3awAUkF3q6Th BqME25hL32ZRjkLGWiMbW 3LjZpbjsgbWFy H4rzNoQezVKxEli+PHRhY mxlIHdpZHRoPScxMDAlJy PiuLecRH3cSk9wVJLwYKB vbGxhcHNlOiBj h8izSOEeSItdTY7ayJtjM 6ZzcEZ2NUJet5r1Pk76jH I+CTYgRAC9wRukEYurt54 0RjHef4xwDQC2 jPTlKUwtEIA7G23ir8K6H WRmJDKzZBO3tFT5oT7qsR koewuqH7AoiBBgPoF2PPH 8dPTekV8vrIkb uxpqdZ0vJfd+X06QAR8EU HRYTV9MEcz6S3JeEhsfoH I+FL24OJMmJP51rACwpVP ba0agrVw1IfRt XBDlYYR3rGxoIHprf3HgS TQpM21woDGfl1A3KJJknI gqcASqUoUxaAM2oA5mYLc asaebf8nyhmrr Zdauq4iqfz96wP70Q81pP XeeLFLkCSO8YPWuCVFrnD tpeh1jpV7hBc6+FFoar6o vm5tvdTd0TyTp GPYxeuBzjMlwKKW6g5GwB a66M2EdlRugj3RgSzf0tp 82wLMuq3C0fXX3TBtgIBK xiX2bJKudPhW3 YMAcIwRjmW53dAKbLYauY j3bqCmtnRnlLV5xIFMiaw rqRFOryG8sFBAvfBAxhVs qJV6vMMFshdsz f062FbFfIQO0NDLucVTtM 5BjdG6zSyVcHJDoVZQgI1 YgsSKsESiqE942KCrrImP 7OPOfzgVxA1Co MTJhbTafDgI7n4D9Tq1Du 0YpdtkmQJY0UDaxIAAmKh V8BnYhUoJ5Q0TvVfd9ZBR yhHlmZN5hI3Zj VZYcvhpuiuqubXR5TXUeQ VBahE77oHYrEWipHx5dj7 H2s811GFXuQSJzwR02Yf5 udDogMTBwdCBU gD7rfbiui3fvhhwlFoQgE KNfBQg7ZVm6GDFvpXqtDu AcEFU2UvP4XSA3iTMgfX6 nqAzacsxqbP6r Oyc+X81fwM8tTFT7JZK4e ignMFCkujFrPT39SA76A4 RyPjwvdGFibGU+PGRpdiB nqNvgGJ9xEgIu j2nft7XyITmjN3PgRDMmL FjsJjq7WNSiINN2oGV0pA 9eWQLtXYsng6X5qMX9D5J ctxMekz1xz8yq ERMxKZnwN93xgCTon9P8P KUncJE7EJZkiQjxQoCgsO 93Oyc+RQPyeOtet2KgYmu ay4sfb9iysOv1 VcWyTMPntzDpqWpeXRF7q 0StRf67O24gKQwpNFDlXO UjHITsVNHvxHxspe3nqE2 wIi8+PGNvbCB3 vXW3fF9aSXIePzX3HDruN 738IyHsyONcNptmg4gii0 dzyOi8XzIuKFSauiMunDm pIIO4d3KnPf47 L30vPJseCNYsBSIoYCVxN JEscCbnbc2akR3hJv4+PC 9yp4rrxy64nD07wTE+PHR kEIY3rBzxZPsg PNUpbW3eSIxhFuA7CNPlX dEqxS69uLDaXWcdLl7xqI texQqgSA8bFZVurukqw92 1TmIfc4ssZUXt pPIaNJysIXB8S04nr9E8D HFsNPMnREL0gLQ4jT6fpA lnbjogbGVmdDsgdmVydGl oIYmvXBwwT646 IHRvcDsnPlBhdGllbnQgT vQbUEq4D9XpMbb8GGFuvN jcAF8icSTcCGquEw5oqLd swRuvND8eDXXf lzbrq367QuAwz3xeGHJpr VOzAUplUCI6B11fn7N0XI IhOVUzTET9cLR8pQ2xgYe nbjogbGVmdDsg leChoCmdJYjsNRryB599V HRvcDsnPkJpcnRoIERhdG C0OA80FD05sZQuy9J6gOW 8K9AkTHKzvkqn sbgnpUJ9CBKpFXBgvX56B q2vqJiaQr2aWGEbPML2MH RpvMQdD8QxdN7bMvUrQYR qSJMbF9CrfWVi UYiwG654XIzuPnO5QXGgm eOsZ0YxTUOsfVbqKaD2e1 M6Rv2XR3Q1GT06GF48bGI ei3B2qGA0E3Tb DBDqjoefpqexeAZ4QKYdC LSqcK34Zv1guWysOf8tGP NdKPV5VRRalVQgT8QyxC3 yOiAjMDAwMDAw Q7ZeuCNlDHkbF908OHvgM hA5ZLAvfjGoP5VzCAPinH wzJtI9v9Y9Kx9TAJo3UK5 7FY06aIRlk1D3 uTZ6I3GvBRUfasqlugofv BB1KJSzSENioR60Km4aaZ yfNb4sSKQaXSO3GZYkkBY lF4LkpI0yYvFl OUIiCEHqH4BvcQQaQMywO 985IRjzQjX4GWIktuMvM4 HzKTMojRzqDaZ3j7C8To0 NVEQhOQ83BKJ4 fTT0EY29HR66F6EzSwhgt GFibGU+PHRhYmxlIHdpZH RoPScxMDAlJyBzdHlsZT0 hYe8nBHDdWYRq qLyxkSUjLqWiv1adPLYqX LjtHO8raToxV6TahVA2RN Rof2x4Df65A07iB3GumST +LJUpxCT4tXF6 vT0wNnWpNoX5CTpeH976L bPreCQqYdjur2hoj3zovP l1EtK1VGOmtiGpbZhgTUT 1l1PzWt46M07l IHdpZHRoPSIxNSUiIHZhb Dthbm6ifU1gIj6+PGNvbC O9zUI5hF5ePcIhUlH9CUc kA783MgWjvBJn Gnwts8gti2dxuHm5RgZlR RTcwaXftFinHIY0o1RvMn 35P9JxuCrwm6KzZua7tk1 0mUSgk3H2zWX4 H3AzRDMrqaheuKWcyCchO L6bFSVuaozpKMZkuS7hPP LsM6a4KsSvTxU8NDgbL8K megY6SPUcfZJy ETluLIG2R91im1W4KTDjI RSnDGP8dLW1nM5lpAiswn ogbGVmdDsgdmVydGljYWw sBQvjY877GAJe dGbbNNBflU5qRSBrwKCts BdyXJ0fYHUuuzqwEvFBIH 9hJOcPDx8LBrJsEcpfaMZ +PPNmPWI0iWhd OOphZYDguE8cCCRgC7l0R oQrYcU9EGhkU6TkFFTpav wpEu16nN1iOgHeSmB0LEh lG2KzsjW8GXFy rHPtUQboHRM8M16gd1L5X WViZDTbFPB0xGT2kW7ylV lnbjogbGVmdDsgdmVydGl lISlpCDftS217 UJDevWmjSgY2RaD6NsZ7X Ol4D3WtBdj5JHXnoJhqZH 3ssHKnAPdoYn4zvLsmsDm sWL1pNCIemrdb DMEylM3fIQRueRThgNvpE G9fUXKqvntol137BxPjFO F8TCPkvQZhJ3LjwI3sGlY dKINyLTJtP0Bp dSXqAJlyX719MElyHeM5X UHzexGcV4DuFWMpxSlbWs A1d8I4Ey3bUgIGYRUhuwi vdGQ+PHRkIHN0 tYrsWLnaNONljN0fEJLpB 3r7TzYtYaT7CNquT3CfWH ImjbxgPa69uT1zBmMjXjW 8ADlyO2YlktH1 NLOktNIvZSvfBGT3F06ra 8H3LIZrNIXgJVX0dDR8iJ 1hbGlnbjogbGVmdDsgdmV ydGljYWwtYWxp C146EBZtrTvsOoHmrNHrG TwvdGQ+BOKwPVV2xZkyBJ raEGXtyX3zFZEnM4q2QfW lKuY4DNzmO3Vo WDBoqumhTx47jP8aSrXoY dU8ONsnX3VqwjS1CQMcuK ZeQBfqZEG2D05uk3M4UCC pYSWpFBA0tDQ5 xK2jlOpmzooleKScxXwgk kHueOsrXOtgOTeqJ680HI PswYsgAh89sRGvmSrdomX 8E0AoQfztxSA+ PV66SOGuUV42fCRkjYQsi 0axfYx9IqDkNSFkDGI9nJ htHJhtu8DsNTDgQ65eiOV wy5I6GXKlrEor oUThNlWfqNG2vC9iPQquy firt0bsytxzAytkn4rtyd 52kM97Q14xRDyeGPYzECJ zMCUiIHZhbGln ee9peX7iDz6+YZTmhJP8s AB3mK1tMeOdZaI7COzhR2 38CkFwnSQePcskd2tgb2y pxGp6NmCwPKEq bvDwsKwoEUN7g8KiMr75D 29sIHdpZHRoPSIyMCUiIH KptKqwdy7ohK0kHl9+PC9 nw6usin08iF98 dHI+SJOwHMO5eBjhYMjbZ KNawI3hIJjfRtM7RPHjGb ZmcO03gBIwHQntZf7mnPb vtVkzCW4bUHOo ixffu067ThHlb2twFNHkx PPrNEjkWSV1X23za5T0RZ ZgAGVbRUI2fHT3dW3xmNk nbjogbGVmdDsg dgNgeKfqANpjVJiqQ889D GWgaLdcJmRroVZzJ4nsio NMKL3hTbbrmCU+PHRkIHN 0eWxlPSdwYWRk aE0zOHOqO2p7WkIfCyL4R EncX2McgyD0PTMufLHwAP WxrDQLeN6eaelpr8hcwub gIzAwMDAwMDt0 XFr0HPMzeYhaRgNaVGR4C aX3SOF3mYJxeQ7hyDgptr jzlO7nLcj+RklOOjwvdGQ +PTZaLEC4iCbb DTygLMAhyR5yUXCpB1x5D fAjYbM5DXldT5SuxtC4HR DdqQQkQOFmsDNBfW6selm kt6dpdglzBuVv JLObDIj4RPx4WSFaiOmaG zNqZSR5XkL7BNE4cOYwtU 1etRkoymftnG5mOtl+TVJ OOjwvdGQ+PHRk BQF2aFnlEGcbDOOasV2oM AXeM4g3YgYzEjK9YWbfC3 CltwF2OWAopJDsMOMpmLO EcD8eudrqn0qf sqimSuNgQCShQCg6YXx1A BDseYhtRaVnGLK1FuZ1WT J3eJZbaP5rzHggjeisfO7 wOyc+FRR4DFC5 XW27UL68D3LeLbftcAGvz +PHRhYmxlIHdpZHRoPS emQWYwRqGzbOyzJV7uQv1 yZGVyLWNvbGxh cHNl (more content not included)... Normal [facility] Consent for Treatmenton Consent for Treatment [id number]:127 Normal [facility]28 SARS-CoV-2 (COVID-19) RNA IGNACIO+probe Ql (Unsp spec) Not detected Normal NOT DETECTED [facility] Comment on above: Result Comment: This test is not yet approved or cleared by the [place] FDA. When there are no FDA-approved or cleared tests available, and other criteria are met, FDA can make tests available under an emergency access mechanism called an Emergency Use Authorization (EUA). The EUA for this test is supported by the [place] of Health and Human Service's (HHS's) declaration [...] SARS-CoV-2. Performed By: #### C VDTBH #### [facility] [address] [place] [address] Dr. Paz Burk INFLUENZA A AND B AGon 02-23 [facility] SEE BELOW Normal [facility] Comment on above: Result Comment: Nega tive for Flu A protein angiten. Infection due to Flu A cannot be ruled out. Flu A angiten in the sample may be below the detection limit of the test. Performed By: #### I NFLUAB #### [facility] [address] [place] [address] Dr. Paz Burk [facility] SEE BELOW Normal [facility] Comment on above: Result Comment: Nega tive for Flu B protein antigen. Infection due to Flu B cannot be ruled out. Flu B antigen in the sample may be below the detection limit of the test. Performed By: #### I NFLUAB #### [facility] [address] [place] [address] Dr. Paz Burk INFLUENZA A AG Negative Normal NEGATIVE SEE COMMENT [facility] Comment on above: Performed By: #### I NFLUAB #### [facility] [address] [place] [address] Dr. Paz Burk INFLUENZA B AG Negative Normal NEGATIVE SEE COMMENT [facility] Comment on above: Performed By: #### I NFLUAB #### [facility] [address] [place] [address] Dr. Paz Burk Physician Orderon 02-14-2022 Physician Order [id number] .00CD:127 Normal [facility] BNPon 01-20-2022 Natriuretic peptide B (Bld) [Mass/Vol] 125.0 pg/mL Normal <=450.0 [facility] Comment on above: Performed By: #### C VDTBH #### [facility] [address] [place] [address] Dr. Paz Burk CBC AUTO DIFFon 01-20-2022 BASO # 0.0 103/ul Normal 0.0-0.1 [facility] Comment on above: Performed By: #### C BC #### [facility] [address] [place] [address] Dr. Paz Burk Basophils/100 WBC (Bld) 0.2 % Normal 0.2-2.0 [facility] Comment on above: Performed By: #### C BC #### [facility] [address] [place] [address] Dr. Paz Burk EO # 0.2 103/ul Normal 0.0-0.7 [facility] Comment on above: Performed By: #### C BC #### [facility] [address] [place] [address] Dr. Paz Burk Eosinophils/100 WBC (Bld) 1.2 % Normal 0.9-7.0 [facility] Comment on above: Performed By: #### C BC #### [facility] [address] [place] [address] Dr. Paz Burk Erythrocyte distribution width (RBC) [Ratio] 14.4 % Normal 11.0-15.0 [facility] Comment on above: Performed By: #### C BC #### [facility] [address] [place] [address] Dr. Paz Burk Hematocrit (Bld) [Volume fraction] 37.3 % Normal 36.0-48.0 [facility] Comment on above: Performed By: #### C BC #### [facility] [address] [place] [address] Dr. Paz Burk Hemoglobin (Bld) [Mass/Vol] 12.3 g/dL Normal 12.0-16.0 [facility] Comment on above: Performed By: #### C BC #### [facility] [address] [place] [address] Dr. Paz Burk IG # 0.07 10e3/ul Critically high 0.00-0.03 [facility] Comment on above: Performed By: #### C BC #### [facility] [address] [place] [address] Dr. Paz Burk IG % 0.5 % Normal 0.0-0.5 [facility] Comment on above: Performed By: #### C BC #### [facility] [address] [place] [address] Dr. Paz Burk LYMPH # 3.0 103/ul Normal 1.2-3.8 [facility] Comment on above: Performed By: #### C BC #### [facility] [address] [place] [address] Dr. Paz Burk Lymphocytes/100 WBC (Bld) 21.2 % Normal 20.5-60.0 [facility] Comment on above: Performed By: #### C BC #### [facility] [address] [place] [address] Dr. Paz Burk MANUAL DIFF REQ NO Normal [facility] Comment on above: Performed By: #### C BC #### [facility] [address] [place] [address] Dr. Paz Burk MCH (RBC) [Entitic mass] 26.8 pg Normal 26.7-34.0 [facility] Comment on above: Performed By: #### C BC #### [facility] [address] [place] [address] Dr. Paz Burk MCHC (RBC) [Mass/Vol] 33.0 g/dL Normal 29.9-35.2 [facility] Comment on above: Performed By: #### C BC #### [facility] [address] [place] [address] Dr. Paz Burk MCV (RBC) [Entitic vol] 81.3 fL Normal 81.0-99.0 [facility] Comment on above: Performed By: #### C BC #### [facility] [address] [place] [address] Dr. Paz Burk MONO # 0.7 103/ul Normal 0.3-0.8 [facility] Comment on above: Performed By: #### C BC #### [facility] [address] [place] [address] Dr. Paz Burk Monocytes/100 WBC (Bld) 4.8 % Normal 1.7-12.0 [facility] Comment on above: Performed By: #### C BC #### [facility] [address] [address] [address] Paz Burk NEUT # 10.3 103/ul Critically high 1.4-6.5 [facility] Comment on above: Performed By: #### C BC #### [facility] [address] [address] [address] Paz Burk Neutrophils/100 WBC (Bld) 72.1 % Normal 43.0-75.0 [facility] Comment on above: Performed By: #### C BC #### [facility] [address] [address] [address] Paz Burk Platelet mean volume (Bld) [Entitic vol] 11.2 fL Normal 9.5-13.5 [facility] Comment on above: Performed By: #### C BC #### [facility] [address] [place] [address] Dr. Paz Burk PLT 277 103/ul Normal 150-450 [facility] Comment on above: Performed By: #### C BC #### [facility] [address] [address] [address] Paz Burk RBC 4.59 106/ul Normal 4.20-5.40 [facility] Comment on above: Performed By: #### C BC #### [facility] [address] [place] [address] Dr. Paz Burk WBC 14.3 103/ul Critically high 4.0-11.0 [facility] Comment on above: Performed By: #### C BC #### [facility] [address] [place] [address] Dr. Paz Burk CTA CHEST WO W [...] LUIS DONATO Date: 2022-01-20 03:10 Normal [facility] Covid-19 PCR (CVDTB)on 12-29 SARS-CoV-2 (COVID-19) RNA IGNACIO+probe Ql (Unsp spec) Not detected Normal NOT DETECTED [facility] Comment on above: Result Comment: When [...] for this test is supported by the [employer] Coordinator of Health and Human Service's declaration that [...] longer be used). Performed By: #### C VDTB #### [facility] [address] [place] [address] Dr. Paz Burk D-DIMERon 01-20-2022 D-DIMER 0.40 mg/L FEU Normal <=0.59 [facility] Comment on above: Performed By: #### C MP #### [facility] [address] [place] [address] Dr. Paz Burk D-DIMER COMMENTS SEE BELOW Normal [facility] Comment on above: Result Comment: Incr eases [...] hospitalization. Performed By: #### C MP #### [facility] [address] [place] [address] Dr. Paz Burk PREG HCG QUALon 01-20-2022 , QUAL Negative Normal NEGATIVE [facility] Comment on above: Performed By: #### C MP #### [facility] [address] [place] [address] Dr. Paz Burk PROF 14(COMP METB)on 022 Albumin [Mass/Vol] 3.3 g/dL Critically low 3.4-5.0 [facility] Comment on above: Performed By: #### C VDTBH #### [facility] [address] [place] [address] Dr. Paz Burk Albumin/Globulin [Mass ratio] 0.8 {ratio} Normal [facility] Comment on above: Performed By: #### C VDTBH #### [facility] [address] [place] [address] Dr. Paz Burk ALP [Catalytic activity/Vol] 95 U/L Normal 46-116 [facility] Comment on above: Performed By: #### C VDTBH #### [facility] [address] [address] [address] Paz Burk ALT [Catalytic activity/Vol] 15 U/L Normal 14-59 [facility] Comment on above: Performed By: #### C VDTBH #### [facility] [address] [place] [address] Dr. Paz Burk Anion gap [Moles/Vol] 10.4 mmol/L Normal [facility] Comment on above: Performed By: #### C VDTBH #### [facility] [address] [address] [address] Paz Burk AST [Catalytic activity/Vol] 10 U/L Critically low 15-37 [facility] Comment on above: Performed By: #### C VDTBH #### [facility] [address] [place] [address] Dr. Paz Burk Bilirubin [Mass/Vol] 0.1 mg/dL Critically low 0.2-1.0 [facility] Comment on above: Performed By: #### C VDTBH #### [facility] [address] [place] [address] Dr. Paz Burk Calcium [Mass/Vol] 8.8 mg/dL Normal 8.5-10.1 [facility] Comment on above: Performed By: #### C VDTBH #### [facility] [address] [place] [address] Dr. Paz Burk Chloride [Moles/Vol] 105 mmol/L Normal 98-107 [facility] Comment on above: Performed By: #### C VDTBH #### [facility] [address] [place] [address] Dr. Paz Burk CO2 [Moles/Vol] 25.3 mmol/L Normal 21.0-32.0 [facility] Comment on above: Performed By: #### C VDTBH #### [facility] [address] [place] [address] Dr. Paz Burk Creatinine [Mass/Vol] 0.83 mg/dL Normal 0.55-1.02 [facility] Comment on above: Performed By: #### C VDTBH #### [facility] [address] [address] [address] Paz Burk EGFR-AF CITIZEN [place] >60 Normal >=60 [facility] Comment on above: Performed By: #### C VDTBH #### [facility] [address] [place] [address] Dr. Paz Burk EGFR-NON AF CITIZEN OF [place] >60 Normal >=60 [facility] Comment on above: Performed By: #### C VDTBH #### [facility] [address] [address] [address] Paz Burk Globulin (S) [Mass/Vol] 4.1 g/dL Normal [facility] Comment on above: Performed By: #### C VDTBH #### [facility] [address] [place] [address] Dr. Paz Burk Glucose [Mass/Vol] 102 mg/dL Normal 74-106 [facility] Comment on above: Performed By: #### C VDTBH #### [facility] [address] [place] [address] Dr. Paz Burk Potassium [Moles/Vol] 3.7 mmol/L Normal 3.5-5.1 [facility] Comment on above: Performed By: #### C VDTBH #### [facility] [address] [place] [address] Dr. Paz Burk Protein [Mass/Vol] 7.4 g/dL Normal 6.4-8.2 [facility] Comment on above: Performed By: #### C VDTBH #### [facility] [address] [place] [address] Dr. Paz Burk Sodium [Moles/Vol] 137 mmol/L Normal 136-145 [facility] Comment on above: Performed By: #### C VDTBH #### [facility] [address] [place] [address] Dr. Paz Burk Urea nitrogen [Mass/Vol] 11.0 mg/dL Normal 7.0-18.0 [facility] Comment on above: Performed By: #### C VDTBH #### [facility] [address] [place] [address] Dr. Paz Burk Urea nitrogen/Creatinine [Mass ratio] 13.3 mg/mg Normal [facility] Comment on above: Performed By: #### C VDTBH #### [facility] [address] [address] [address] Paz Burk TROPONIN, HIGH SENSITIVITYon 01-20-2022 HSTROP 4.2 pg/mL Normal 4.0-51.3 [facility] Comment on above: Result Comment: CUT- OFF POINTS HAVE BEEN ESTABLISHED BASED ON THE FOURTH UNIVERSAL DEFINITIONS OF MYOCARDIAL INFARCTION. THE UPPER REFERENCE LIMIT (URL) OF TROPONIN, DEFINED THE 99TH PERCENTILE OF cTnI DISTRIBUTION IN A REFERENCE POPULATION, HAS BEEN CONFIRMED THE DECISION THRESHOLD FOR MT DIAGNOSIS. Performed By: #### C #### [facility] [address] [place] [address] Dr. Paz Burk HSTROP <4.0 Normal 4.0-51.3 [facility] Comment on above: Result Comment: CUT- OFF POINTS HAVE BEEN ESTABLISHED BASED ON THE FOURTH UNIVERSAL DEFINITIONS OF MYOCARDIAL INFARCTION. THE UPPER REFERENCE LIMIT (URL) OF TROPONIN, DEFINED THE 99TH PERCENTILE OF cTnI DISTRIBUTION IN A REFERENCE POPULATION, HAS BEEN CONFIRMED THE DECISION THRESHOLD FOR MT DIAGNOSIS. Performed By: #### C VDTBH #### [facility] [address] [place] [address] Dr. Paz Burk XR CHEST 1 Von [...] Cornel QUIÑONES Date: 2022-01-19 23:43 Normal [facility] CBC AUTO DIFFon 12-21-2021 BASO # 0.0 103/ul Normal 0.0-0.1 [facility] Comment on above: Performed By: #### C VDTBH #### [facility] [address] [place] [address] Dr. Paz Burk Basophils/100 WBC (Bld) 0.3 % Normal 0.2-2.0 [facility] Comment on above: Performed By: #### C VDTBH #### [facility] [address] [place] [address] Dr. Paz Burk EO # 0.2 103/ul Normal 0.0-0.7 [facility] Comment on above: Performed By: #### C VDTBH #### [facility] [address] [place] [address] Dr. Paz Burk Eosinophils/100 WBC (Bld) 1.2 % Normal 0.9-7.0 [facility] Comment on above: Performed By: #### C VDTBH #### [facility] [address] [place] [address] Dr. Paz Burk Erythrocyte distribution width (RBC) [Ratio] 14.4 % Normal 11.0-15.0 [facility] Comment on above: Performed By: #### C VDTBH #### [facility] [address] [place] [address] Dr. Paz Burk Hematocrit (Bld) [Volume fraction] 37.7 % Normal 36.0-48.0 [facility] Comment on above: Performed By: #### C VDTBH #### [facility] [address] [place] [address] Dr. Paz Burk Hemoglobin (Bld) [Mass/Vol] 12.0 g/dL Normal 12.0-16.0 [facility] Comment on above: Performed By: #### C VDTBH #### [facility] [address] [place] [address] Dr. Paz Burk IG # 0.06 10e3/ul Critically high 0.00-0.03 [facility] Comment on above: Performed By: #### C VDTBH #### [facility] [address] [place] [address] Dr. Paz Burk IG % 0.4 % Normal 0.0-0.5 [facility] Comment on above: Performed By: #### C VDTBH #### [facility] [address] [place] [address] Dr. Paz Burk LYMPH # 3.1 103/ul Normal 1.2-3.8 [facility] Comment on above: Performed By: #### C VDTBH #### [facility] [address] [place] [address] Dr. Paz Burk Lymphocytes/100 WBC (Bld) 21.8 % Normal 20.5-60.0 [facility] Comment on above: Performed By: #### C VDTBH #### [facility] [address] [place] [address] Dr. Paz Burk MANUAL DIFF REQ NO Normal [facility] Comment on above: Performed By: #### C VDTBH #### [facility] [address] [place] [address] Dr. Paz Burk MCH (RBC) [Entitic mass] 26.1 pg Critically low 26.7-34.0 [facility] Comment on above: Performed By: #### C VDTBH #### [facility] [address] [place] [address] Dr. Paz Burk MCHC (RBC) [Mass/Vol] 31.8 g/dL Normal 29.9-35.2 [facility] Comment on above: Performed By: #### C VDTBH #### [facility] [address] [place] [address] Dr. Paz Burk MCV (RBC) [Entitic vol] 82.0 fL Normal 81.0-99.0 [facility] Comment on above: Performed By: #### C VDTBH #### [facility] [address] [place] [address] Dr. Paz Burk MONO # 0.8 103/ul Normal 0.3-0.8 [facility] Comment on above: Performed By: #### C VDTBH #### [facility] [address] [place] [address] Dr. Paz Burk Monocytes/100 WBC (Bld) 5.9 % Normal 1.7-12.0 [facility] Comment on above: Performed By: #### C VDTBH #### [facility] [address] [address] [address] Paz Burk NEUT # 10.0 103/ul Critically high 1.4-6.5 [facility] Comment on above: Performed By: #### C VDTBH #### [facility] [address] [address] [address] Paz Burk Neutrophils/100 WBC (Bld) 70.4 % Normal 43.0-75.0 [facility] Comment on above: Performed By: #### C VDTBH #### [facility] [address] [address] [address] Paz Burk Platelet mean volume (Bld) [Entitic vol] 11.0 fL Normal 9.5-13.5 [facility] Comment on above: Performed By: #### C VDTBH #### [facility] [address] [place] [address] Dr. Paz Burk PLT 308 103/ul Normal 150-450 [facility] Comment on above: Performed By: #### C VDTBH #### [facility] [address] [place] [address] Dr. Paz Burk RBC 4.60 106/ul Normal 4.20-5.40 [facility] Comment on above: Performed By: #### C VDTBH #### [facility] [address] [place] [address] Dr. Paz Burk WBC 14.2 103/ul Critically high 4.0-11.0 [facility] Comment on above: Performed By: #### C VDTBH #### [facility] [address] [place] [address] Dr. Paz Burk PROF 14(COMP METB)on 022 Albumin [Mass/Vol] 3.4 g/dL Normal 3.4-5.0 [facility] Comment on above: Performed By: #### C MP #### [facility] [address] [place] [address] Dr. Paz Burk Albumin/Globulin [Mass ratio] 0.8 {ratio} Normal [facility] Comment on above: Performed By: #### C MP #### [facility] [address] [address] [address] Paz Burk ALP [Catalytic activity/Vol] 86 U/L Normal 46-116 [facility] Comment on above: Performed By: #### C MP #### [facility] [address] [address] [address] Paz Burk ALT [Catalytic activity/Vol] 26 U/L Normal 14-59 [facility] Comment on above: Performed By: #### C MP #### [facility] [address] [address] [address] Paz Burk Anion gap [Moles/Vol] 14.6 mmol/L Normal [facility] Comment on above: Performed By: #### C MP #### [facility] [address] [place] [address] Dr. Paz Burk AST [Catalytic activity/Vol] 15 U/L Normal 15-37 [facility] Comment on above: Performed By: #### C MP #### [facility] [address] [place] [address] Dr. Paz Burk Bilirubin [Mass/Vol] 0.2 mg/dL Normal 0.2-1.0 [facility] Comment on above: Performed By: #### C MP #### [facility] [address] [place] [address] Dr. Paz Burk Calcium [Mass/Vol] 8.5 mg/dL Normal 8.5-10.1 [facility] Comment on above: Performed By: #### C MP #### [facility] [address] [place] [address] Dr. Paz Burk Chloride [Moles/Vol] 104 mmol/L Normal 98-107 [facility] Comment on above: Performed By: #### C MP #### [facility] [address] [place] [address] Dr. Paz Burk CO2 [Moles/Vol] 26.5 mmol/L Normal 21.0-32.0 [facility] Comment on above: Performed By: #### C MP #### [facility] [address] [address] [address] Paz Burk Creatinine [Mass/Vol] 0.88 mg/dL Normal 0.55-1.02 [facility] [facility] Comment on above: Performed By: #### C MP #### [facility] [address] [address] [address] Paz Burk EGFR-AF CITIZEN OF [place] >60 Normal >=60 [facility] Comment on above: Performed By: #### C MP #### [facility] [address] [address] [address] Paz Burk EGFR-NON AF CITIZEN OF [place] >60 Normal >=60 [facility] Comment on above: Performed By: #### C MP #### [facility] [address] [place] [address] Dr. Paz Burk Globulin (S) [Mass/Vol] 4.4 g/dL Normal [facility] Comment on above: Performed By: #### C MP #### [facility] [address] [address] [address] Paz Burk Glucose [Mass/Vol] 116 mg/dL Critically high 74-106 [facility] Comment on above: Performed By: #### C MP #### [facility] [address] [place] [address] Dr. Paz Burk Potassium [Moles/Vol] 3.1 mmol/L Critically low 3.5-5.1 [facility] Comment on above: Performed By: #### C MP #### [facility] [address] [place] [address] Dr. Paz Burk Protein [Mass/Vol] 7.8 g/dL Normal 6.4-8.2 [facility] Comment on above: Performed By: #### C MP #### [facility] [address] [place] [address] Dr. Paz Burk Sodium [Moles/Vol] 142 mmol/L Normal 136-145 [facility] Comment on above: Performed By: #### C MP #### [facility] [address] [place] [address] Dr. Paz Burk Urea nitrogen [Mass/Vol] 8.0 mg/dL Normal 7.0-18.0 [facility] Comment on above: Performed By: #### C MP #### [facility] [address] [place] [address] Dr. Paz Burk Urea nitrogen/Creatinine [Mass ratio] 9.1 mg/mg Normal [facility] Comment on above: Performed By: #### C MP #### [facility] [address] [place] [address] Dr. Paz Burk PROTIMEon 12-21-2021 INR Coag (PPP) [Relative time] 1.05 {INR} Normal [facility] Comment on above: Performed By: #### P TT, PT #### [facility] [address] [place] [address] Dr. Paz Burk INR GUIDELINES SEE BELOW Normal [facility] Comment on above: Result Comment: NANO RED INR: 2.0 - 3.0 CONDITIONS NOT LISTED BELOW 2.5 - 3.5 FOR PROSTHETIC HEART VALVE REPLACEMENT 2.5 - 3.5 RECURRENT THROMBOSIS Performed By: #### P TT, PT #### [facility] [address] [place] [address] Dr. Paz Burk PT Coag (PPP) [Time] 11.3 s Normal 9.0-11.6 [facility] Comment on above: Performed By: #### P TT, PT #### [facility] [address] [place] [address] Dr. Paz Burk PTTon 12-21-2021 aPTT Coag (Bld) [Time] 32.5 s Normal 22.3-36.2 [facility] Comment on above: Performed By: #### P TT, PT #### [facility] [address] [place] [address] Dr. Paz Burk BLOOD GASES BTYon 11-29-2021 02 MODE ROOM AIR Normal [facility] Comment on above: Performed By: #### C VDTBH #### [facility] [address] [place] [address] Dr. Paz Burk ALLENS TEST Positive Normal [facility] Comment on above: Performed By: #### C VDTBH #### [facility] [address] [place] [address] Dr. Paz Burk Base excess Calc (Bld) [Moles/Vol] 0.7 mmol/L Normal -2.0-2.0 [facility] Comment on above: Performed By: #### C VDTBH #### [facility] [address] [place] [address] Dr. Paz Burk BIPAP PRESSURE Normal [facility] Comment on above: Performed By: #### C VDTBH #### [facility] [address] [place] [address] Dr. Paz Burk CPAP [facility] Comment on above: Performed By: #### C VDTBH #### [facility] [address] [place] [address] Dr. Paz Burk FIO2 [facility] Comment on above: Performed By: #### C VDTBH #### [facility] [address] [place] [address] Dr. Paz Burk HCO3 (Bld) [Moles/Vol] 25.3 mmol/L Normal 22.0-26.0 [facility] Comment on above: Performed By: #### C VDTBH #### [facility] [address] [place] [address] Dr. Paz Burk LPM [facility] Comment on above: Performed By: #### C VDTBH #### [facility] [address] [place] [address] Dr. Paz Burk MINUTE VOLUME Normal [facility] Comment on above: Performed By: #### C VDTBH #### [facility] [address] [place] [address] Dr. Paz Burk Oxygen (Bld) [Partial pressure] 96.1 mm[Hg] Normal 80.0-100.0 [facility] Comment on above: Performed By: #### C VDTBH #### [facility] [address] [place] [address] Dr. Paz Burk Oxygen saturation in Blood 99.0 % Normal 95.0-100.0 [facility] Comment on above: Performed By: #### C VDTBH #### [facility] [address] [place] [address] Dr. Paz Burk PCO2 35.8 mmHg Normal 35.0-45.0 [facility] Comment on above: Performed By: #### C VDTBH #### [facility] [address] [place] [address] Dr. Paz Burk [facility] Comment on above: Performed By: #### C VDTBH #### [facility] [address] [place] [address] Dr. Paz Burk pH (Bld) 7.448 [pH] Normal 7.350-7.450 [facility] Comment on above: Performed By: #### C VDTBH #### [facility] [address] [place] [address] Dr. Paz Burk [facility] Comment on above: Performed By: #### C VDTBH #### [facility] [address] [place] [address] Dr. Paz Burk [facility] Comment on above: Performed By: #### C VDTBH #### [facility] [address] [place] [address] Dr. Paz Burk PUNCTURE SITE RR [facility] Comment on above: Performed By: #### C VDTBH #### [facility] [address] [place] [address] Dr. Paz Burk RATE [facility] Comment on above: Performed By: #### C VDTBH #### [facility] [address] [place] [address] Dr. Paz Burk VENT MODE [facility] Comment on above: Performed By: #### C VDTBH #### [facility] [address] [place] [address] Dr. Paz Burk [facility] Comment on above: Performed By: #### C VDTBH #### [facility] [address] [place] [address] Dr. Paz Burk CULTURE URINEon 08-21-2021 CULTURE URINE Culture Observations : MODERATE GROWTH OF MIXED GENITAL TING. NO POTENTIAL PATHOGENS SEEN. Normal [facility] Comment on above: Performed By: #### C MP #### [facility] [address] [place] [address] Dr. Paz Burk ER URINE PROFILEon 2 Bilirubin Ql (U) Negative Normal NEGATIVE [facility] Comment on above: Performed By: #### C MP #### [facility] [address] [place] [address] Dr. Paz Burk Clarity (U) CLEAR Normal CLEAR [facility] Comment on above: Performed By: #### C MP #### [facility] [address] [place] [address] Dr. Paz Burk Color (U) LT. YELLOW Normal YELLOW [facility] Comment on above: Performed By: #### C MP #### [facility] [address] [place] [address] Dr. Paz Burk ERUAHBasim A micrscopic examination will be performed if indicated. Normal [facility] Comment on above: Performed By: #### C MP #### [facility] [address] [place] [address] Dr. Paz Burk Glucose Ql (U) Negative Normal NEGATIVE [facility] Comment on above: Performed By: #### C MP #### [facility] [address] [place] [address] Dr. Paz Burk Hemoglobin Ql (U) Negative Normal NEGATIVE [facility] Comment on above: Performed By: #### C MP #### [facility] [address] [place] [address] Dr. Paz Burk Ketones Ql (U) Negative Normal NEGATIVE [facility] Comment on above: Performed By: #### C MP #### [facility] [address] [place] [address] Dr. Paz Burk LEUKOCYTES LARGE Abnormal NEGATIVE [facility] Comment on above: Performed By: #### C MP #### [facility] [address] [place] [address] Dr. Paz Burk Nitrite Ql (U) Negative Normal NEGATIVE [facility] Comment on above: Performed By: #### C MP #### [facility] [address] [place] [address] Dr. Paz Burk pH (U) 7.5 [pH] Normal 5-9 [facility] Comment on above: Performed By: #### C MP #### [facility] [address] [place] [address] Dr. Paz Burk SPEC GRAVITY 1.020 Normal 1.005-<=1.025 [facility] Comment on above: Performed By: #### C MP #### [facility] [address] [place] [address] Dr. Paz Burk UA PROTEIN Negative Normal NEGATIVE/ TRACE [facility] Comment on above: Performed By: #### C MP #### [facility] [address] [place] [address] Dr. Paz Burk UR MICRO IND INDICATED Normal [facility] Comment on above: Performed By: #### C MP #### [facility] [address] [place] [address] Dr. Paz Burk Urobilinogen Qn (U) 0.2 {Ara'U}/dL Normal 0.2 - 1. 0 [facility] Comment on above: Performed By: #### C MP #### [facility] [address] [place] [address] Dr. Paz Burk URon 08-21-2021 , QUAL Negative Normal NEGATIVE [facility] Comment on above: Performed By: #### C MP #### [facility] [address] [place] [address] Dr. Paz Burk URINE MICROSCOPIC ONLYon BACTERIA SMALL Abnormal NONE SEEN [facility] Comment on above: Performed By: #### C MP #### [facility] [address] [place] [address] Dr. Paz Burk Bacteria identified Cx Nom (U) INDICATED Normal [facility] Comment on above: Performed By: #### C MP #### [facility] [address] [place] [address] Dr. Paz Burk CAST NONE SEEN Normal NONE SEEN [facility] Comment on above: Performed By: #### C MP #### [facility] [address] [place] [address] Dr. Paz Burk Crystals LM Nom (Urine sed) NONE SEEN Normal NONE SEEN [facility] Comment on above: Performed By: #### C MP #### [facility] [address] [address] [address] Paz Burk Epithelial cells LM Ql (Urine sed) FEW Abnormal NONE SEEN /RARE [facility] Comment on above: Performed By: #### C MP #### [facility] [address] [place] [address] Dr. Paz Burk MUCOUS NONE SEEN Normal NONE SEEN [facility] Comment on above: Performed By: #### C MP #### [facility] [address] [place] [address] Dr. Paz Burk RBC NONE SEEN Abnormal 0-2 [facility] Comment on above: Performed By: #### C MP #### [facility] [address] [place] [address] Dr. Paz Burk WBC 5-10 Abnormal NONE SEEN [facility] Comment on above: Performed By: #### C MP #### [facility] [address] [place] [address] Dr. Paz Burk Vital Signs Date Time Vital Sign Value Performing Clinician Facility 09-11-2024 15:33-0400 Body mass index (BMI) [Ratio] 53.58 kg/m2 [facility] 09-11-2024 15:33-0400 Body weight 150.5 kg [facility] 08-28-2024 13:16-0400 Body mass index (BMI) [Ratio] 52.84 kg/m2 [employer] DO Work Phone: [facility] 08-28-2024 [id number] Body weight 148.51 kg [employer] Work Phone: [facility] 08-28-2024 13:16-040 Diastolic blood pressure 70 mm[Hg] [employer] Work Phone: [facility] 08-28-2024 13:16-0400 Systolic blood pressure 122 mm[Hg] Dhruv Jorje DO Work Phone: [facility] 08-21-2024 13:30-0400 Body mass index (BMI) [Ratio] 51.71 kg/m2 Talya [place] PA Work Phone: [facility] 08-21-2024 13:30-0400 Body weight 145.33 kg Talya [place] PA Work Phone: [facility] 08-21-2024 13:30-0400 Diastolic blood pressure 72 mm[Hg] Talya [place] PA Work Phone: [facility] 08-21-2024 13:30-0400 Systolic blood pressure 120 mm[Hg] Talya [place] PA Work Phone: [facility] 08-05-2024 14:16-0400 Body mass index (BMI) [Ratio] 50.7 kg/m2 Dhruv Jorje DO Work Phone: [facility] 08-05-2024 14:16-0400 Body weight 142.48 kg Dhruv Jorje DO Work Phone: [facility] 08-05-2024 14:16-0400 Diastolic blood pressure 72 mm[Hg] Dhruv Jorje DO Work Phone: [facility] 08-05-2024 14:16-0400 Systolic blood pressure 110 mm[Hg] Dhruv Jorje DO Work Phone: [facility] 07-17-2024 14:16-0400 Body height 167.6 cm Americo Reddy MD Work Phone: [facility] 07-17-2024 14:16-0400 Body mass index (BMI) [Ratio] 50.92 kg/m2 Americo Reddy MD Work Phone: [facility] 07-17-2024 14:16-0400 Body weight 143.02 kg Americo Reddy MD Work Phone: [facility] 07-17-2024 14:16-0400 Diastolic blood pressure 72 mm[Hg] Americo Reddy MD Work Phone: [facility] 07-17-2024 14:16-0400 Heart rate 92 /min Americo Reddy MD Work Phone: [facility] 07-17-2024 14:16-0400 Systolic blood pressure 108 mm[Hg] Americo Reddy MD Work Phone: [facility] 06-26-2024 15:44-0400 Body mass index (BMI) [Ratio] 49.67 kg/m2 Dhruv Jorje DO Work Phone: [facility] 06-26-2024 15:44-0400 Body weight 139.59 kg Dhruv Jorje DO Work Phone: [facility] 06-26-2024 15:44-0400 Diastolic blood pressure 72 mm[Hg] Dhruv Jorje DO Work Phone: [facility] 06-26-2024 15:44-0400 Systolic blood pressure 108 mm[Hg] Dhruv Jorje DO Work Phone: [facility] 06-21-2024 09:02-0400 Body height 167.6 cm Kvng Jordan MD Work Phone: [facility] 06-21-2024 09:02-0400 Body mass index (BMI) [Ratio] 49.67 kg/m2 Kvng Jordan MD Work Phone: [facility] 06-21-2024 09:02-0400 Body weight 139.53 kg Kvng Jordan MD Work Phone: [facility] 06-21-2024 09:02-0400 Diastolic blood pressure 75 mm[Hg] Kvng Jordan MD Work Phone: [facility] 06-21-2024 09:02-0400 Heart rate 91 /min Kvng Jordan MD Work Phone: [facility] 06-21-2024 09:02-0400 Systolic blood pressure 111 mm[Hg] Kvng Jordan MD Work Phone: [facility] 05-27-2024 16:24-0400 Diastolic blood pressure 69 mm[Hg] Kvng Jordan MD Work Phone: [facility] 05-27-2024 16:24-0400 Heart rate 86 /min Kvng Jordan MD Work Phone: [facility] 05-27-2024 16:24-0400 Systolic blood pressure 106 mm[Hg] Kvng Jordan MD Work Phone: [facility] 04-09-2024 11:34-0500 Body mass index (BMI) [Ratio] 45.52 kg/m2 Dhruv Jorje DO Work Phone: [facility] 04-09-2024 11:34-0500 Body weight 127.91 kg Dhruv Jorje DO Work Phone: [facility] 04-09-2024 11:34-0500 Diastolic blood pressure 72 mm[Hg] Dhruv Jorje DO Work Phone: [facility] 04-09-2024 11:34-0500 Systolic blood pressure 116 mm[Hg] Dhruv Jorje DO Work Phone: [facility] 03-08-2024 09:24-0500 Body mass index (BMI) [Ratio] 45.1 kg/m2 Nom Nurse [facility] 03-08-2024 09:24-0500 Body weight 126.73 kg Nom Nurse [facility] 03-08-2024 09:24-0500 Diastolic blood pressure 70 mm[Hg] [facility] Nurse [facility] 03-08-2024 09:24-0500 Systolic blood pressure 110 mm[Hg] [facility] Nurse [facility] 06-29-2020 09:02-0400 Body height 167.64 cm Edith Ford Work Phone: [facility] 06-29-2020 09:02-0400 Body mass index (BMI) [Ratio] 48.2 kg/m2 Edith Ford Work Phone: [facility] 06-29-2020 09:02-0400 Body temperature 97.8 [degF] Edith Ford Work Phone: [facility] 06-29-2020 09:02-0400 Body weight 135.65 kg Edith Ford Work Phone: [facility] 06-29-2020 09:02-0400 Diastolic blood pressure 73 mm[Hg] Edith Ford Work Phone: [facility] 06-29-2020 09:02-0400 Heart rate 69 /min Edith Ford Work Phone: [facility] 06-29-2020 09:02-0400 Respiratory rate 16 /min Edith Ford Work Phone: [facility] 06-29-2020 09:02-0400 SaO2% (BldA) [Mass fraction] 98 % Edith Ford Work Phone: [facility] 06-29-2020 09:02-0400 Systolic blood pressure 130 mm[Hg] Edith Ford Work Phone: [facility] Encounters Encounter Date Encounter Type Care Provider Facility Start: 09-12-2024 End: 09-12-2024 Bamboo flowsheet Dhruv Jorje DO Work Phone: [facility] Start: 09-12-2024 End: 09-12-2024 Bamboo flowsheet Dhruv Jorje DO Work Phone: [facility] Start: 09-11-2024 End: 09-11-[address] Work Phone: [facility] Comment on above: Monochorionic diamni otic twin gestation in third trimester; Gestational diabetes mellitus (GDM) in third trimester, gestational diabetes method of control unspecified Start: 08-29-2024 End: 08-29-2024 Orders Only Quin Rodas RN [facility] Comment on above: Monochorionic diamni otic twin gestation in third trimester (Primary Dx); Gestational diabetes mellitus (GDM) in third trimester, gestational diabetes method of control unspecified Start: 08-28-2024 End: 08-28-2024 Clinisync Result Encounter Dhruv Jorje DO Work Phone: [facility] Unsolicited Start: 08-28-2024 End: 08-28-2024 Clinisync Result Encounter Dhruv Jorje DO Work Phone: [facility] Unsolicited Start: 08-28-2024 End: 08-28-2024 Office outpatient visit 15 minutes Dhruv Jorje DO Work Phone: [facility] Comment on above: Third trimester preg mamta ([facility] 34 weeks gestation of ([facility] Start: 08-28-2024 End: 08-28-2024 ambulatory DHRUV JORJE Not Available Start: 08-21-2024 End: 08-21-2024 Bamboo flowsheet Talya OJEDA Work Phone: [facility] Start: 08-21-2024 End: 08-21-2024 Bamboo flowsheet Talya OJEDA Work Phone: [facility] Start: 08-21-2024 End: 08-21-2024 ambulatory TALYA WOODARD Not Available Start: 08-21-2024 End: 08-21-2024 Office outpatient visit 15 minutes Talya OJEDA Work Phone: [facility] Comment on above: 33 weeks gestation o f ([facility]); Third trimester ([facility]); Monochorionic diamniotic twin , antepartum ([facility]); Nonintractable headache, unspecified chronicity pattern, unspecified headache type; Other iron deficiency anemia Start: 08-16-2024 End: 08-16-2024 Telephone encounter Americo Reddy MD Work Phone: [facility] Comment on above: Monochorionic diamni otic twin gestation in third trimester (Primary Dx) Start: 08-15-2024 End: 08-15-[address] [facility] Start: 08-05-2024 End: 08-05-2024 Bamboo flowsheet Dhruv [...] Third trimester Start: 07-31-2024 End: 07-31-[address] [facility] Start: 07-30-2024 End: 07-30-2024 ambulatory Cici Gama Marker [facility] Work Phone: Start: 07-30-2024 End: 07-30-2024 Departed Referred Cici Guadalupe DO Work Phone: [facility] Start: 07-18-2024 End: 07-18-2024 ambulatory TALYA WOODARD Not Available Start: 07-17-2024 End: 07-17-2024 Office outpatient visit 25 minutes Americo Reddy MD Work Phone: [facility] Comment on above: 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 (Primary Dx) Start: 07-17-2024 End: 07-17-2024 Orders Only Elizabeth Wang RN [facility] Comment on above: Monochorionic diamni otic twin gestation in third trimester (Primary Dx) Start: 07-16-2024 End: 07-16-2024 Clinisync Result Encounter Dhruv Jorje DO Work Phone: [facility] Unsolicited Start: 07-16-2024 End: 07-16-2024 Clinisync Result Encounter Dhruv Jorje DO Work Phone: [facility] Unsolicited Start: 07-05-2024 End: 07-05-2024 ambulatory DHRUV R JORJE [facility] Start: 06-26-2024 End: 06-26-2024 ambulatory DHRUV JORJE [...] Only Lara Borrero RN [facility] Comment on above: 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 (Primary Dx); Echogenic intracardiac focus of fetus on ultrasound; 24 weeks gestation of Start: 06-21-2024 End: 06-21-2024 Telephone encounter Oneida Brunson [facility] Start: 06-21-2024 End: 06-21-2024 Office outpatient visit 25 minutes Kvng Jordan MD Work Phone: [facility] Comment on above: 24 weeks gestation o f (Primary Dx); Monochorionic diamniotic twin gestation in second trimester Start: 06-21-2024 End: 06[facility] Start: 06-14-[facility]24 End: 06-14-2024 ambulatory [facility] Start: 06-12-2024 End: 06-12-2024 Orders Only Elizabeth Wang RN [facility] Comment on above: 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 (Primary Dx); Echogenic intracardiac focus of fetus on ultrasound Start: 06-07-2024 End: 06-07-2024 ambulatory TALYA Graves [facility] Start: 05-31-2024 End: 05-31-2024 Office outpatient new 60 minutes Divya Limon M.D. Work Phone: [facility] Comment on above: 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 (Primary Dx) Start: 05-31-2024 End: 05-31-2024 ambulatory MEENU REED [facility] Start: 05-31-2024 End: 05-31-2024 ambulatory NICHOLE HYDE [facility] Start: 05-27-2024 End: 05-27-2024 [facility] Start: 05-27-2024 End: 05-27-2024 Office outpatient visit 40 minutes Kvng Jordan MD Work Phone: [facility] Comment on above: 20 weeks gestation o f (Primary Dx); Monochorionic diamniotic twin gestation in second trimester; Echogenic intracardiac focus of fetus on ultrasound Start: 05-27-2024 End: 05-27-[address] [facility] Start: 05-13-2024 End: 05-13-2024 Orders Only Elizabeth Wang RN [facility] Comment on above: 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 (Primary Dx) Start: 05-10-2024 End: 05-10-[address] [facility] Start: 05-07-2024 End: 05-07-2024 ambulatory TALYA WOODARD Not Available Start: 04-26-2024 End: 04-26-2024 Orders Only Lara Borrero RN [facility] Comment on above: 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 (Primary Dx); 16 weeks gestation of Start: 04-11-2024 End: 04-11-2024 Chart abstracting Kvng Jordan MD Work Phone: [facility] Start: 04-10-2024 End: 04-10-2024 Telephone encounter Brittanie Chen LPN [facility] Start: 04-09-2024 End: 04-09-2024 Bamboo flowsheet [...] Start: 03-03-2022 End: 03-04-2022 ambulatory Neal Garcia Facility:[facility] Start: 03-03-2022 End: 03-03-2022 Patient encounter procedure Edith Ford [facility] Start: 02-23-2022 End: 02-24-[address] DOCTOR MISC Facility:[facility] Start: 01-20-2022 End: 01-20-[address] DOCTOR MISC Facility:[facility] Start: 12-21-2021 End: 12-21-[address] DOCTOR MISC Facility:[facility] Start: 11-29-2021 End: 11-29-[address] DOCTOR MISC Facility:[facility] Start: 08-21-2021 End: 08-21-[address] DOCTOR MISC Facility:[facility] Start: 06-29-2020 End: 06-29-2020 Emergency department patient visit Edith Ford Work Phone: [facility] Procedures Date Procedure Procedure Detail Performing Clinician Start: 08-28-2024 GLUCOSE TOLERANCE 3 HOUR Dhruv Jorje DO Work Phone: Start: 08-21-2024 Urnls dip [...] History of tympanostomy tubes in ears Pola pettyqiana Ford Tubes in Ears Edith Joneslázaro on Plan of Treatment Date Care Activity Detail Author Start: 05-08-2027 Screening for malign ant neoplasm of cervix Pap Smear [facility] Start: 08-16-2025 End: 08-16-2025 US MFM with or without consult US MFM with or without consult Imaging Routine Monochorionic 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 Expected: 08/16/2025 (Approximate), Expires: 08/16/2025 [facility]ent Work Phone: Comment on above: Expected: 08/16/2025 (Approximate), Expires: 08/16/2025 Start: 07-17-2025 Adult BMI Screening Adult BMI Screen ing [facility] Start: 07-17-2025 Tobacco Screening Tobacco Screening [facility] Start: 07-17-2025 End: 07-17-2025 US MFM with or without consult US MFM with or without consult Imaging Routine Monochorionic 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 Expected: 07/17/2025 (Approximate), Expires: 07/17/2025 Sequent Work Phone: Comment on above: Expected: 07/17/2025 (Approximate), Expires: 07/17/2025 Start: 06-24-2025 End: 06-24-2025 US MFM with or without consult US MFM with or without consult Imaging Routine Monochorionic diamniotic twin gestation in second trimester Echogenic intracardiac focus of fetus on ultrasound 24 weeks gestation of Expected: 06/24/2025 (Approximate), Expires: 06/24/2025 Sequent Work Phone: Comment on above: Expected: 06/24/2025 (Approximate), Expires: 06/24/2025 Start: 06-21-2025 Adult BMI Screening Adult BMI Screen ing [facility] Start: 06-21-2025 Tobacco Screening Tobacco Screening [facility] Start: 06-12-2025 End: 06-12-2025 US MFM with or without consult US MFM with or without consult Imaging Routine Monochorionic diamniotic twin gestation in second trimester Echogenic intracardiac focus of fetus on ultrasound Expected: 06/12/2025 (Approximate), Expires: 06/12/2025 Sequent Work Phone: Comment on above: Expected: 06/12/2025 (Approximate), Expires: 06/12/2025 Start: 05-27-2025 Tobacco Screening Tobacco Screening [facility] Start: 05-13-2025 End: 05-13-2025 US MFM with or without consult US MFM with or without consult Imaging Routine Monochorionic diamniotic twin gestation in second trimester Expected: 05/13/2025 (Approximate), Expires: 05/13/2025 Sequent Work Phone: Comment on above: Expected: 05/13/2025 (Approximate), Expires: 05/13/2025 Start: 04-26-2025 Adult BMI Screening Adult BMI Screen ing [facility] Start: 04-26-2025 Tobacco Screening Tobacco Screening [facility] Start: 04-26-2025 End: 04-26-2025 US MFM with or without consult US MFM with or without consult Imaging Routine Monochorionic diamniotic twin gestation in second trimester 16 weeks gestation of Expected: 04/26/2025 (Approximate), Expires: 04/26/2025 [facility] Work Phone: Comment on above: Expected: 04/26/2025 (Approximate), Expires: 04/26/2025 Start: 10-28-2024 AMB SEASONAL FLU VACCINE (Season Ended) AMB SEASONAL FLU VACCINE (Season Ended) [facility] Start: 10-28-2024 Influenza vaccination [facility] Start: 09-12-2024 End: 09-12-2024 Patient encounter procedure [facility] Comment on above: Arrived Start: 09-11-2024 End: 09-11-2024 Patient encounter procedure 09/11/2024 1:30 PM EDT Appointment [facility] [address] [place] [phone] [facility] Start: 08-29-2024 End: 08-29-2024 Patient encounter procedure 08/29/2024 3:30 PM EDT Appointment [facility] [address] [place] [phone] [facility] Start: 08-28-2024 End: 08-28-2024 Patient encounter procedure 08/28/2024 1:00 PM EDT Routine [facility] [address] [place] [address] Dhruv Recinos DO [address] [place], [place] [id number] [facility] Start: 08-19-2024 End: 08-19-2024 Patient encounter procedure 08/19/2024 2:30 PM EDT Routine [facility] [address] [place] [address] Talya Woodard PA [address] [place] [address] [facility] Start: 08-15-2024 End: 08-15-2024 Patient encounter procedure 08/15/2024 11:30 AM EDT Appointment [facility] [address] [place] [phone] [facility] Start: 07-31-2024 End: 07-31-2024 Patient encounter procedure 07/31/2024 3:30 PM EDT Appointment [facility] [address] [place] [phone] [facility] Start: 07-30-2024 Urine culture [facility] Start: 07-30-2024 Bacteria identified in Urine by Culture Urine Culture [facility] Start: 07-18-2024 End: 07-18-2024 Patient encounter procedure 07/18/2024 1:30 PM EDT Routine [facility] [address] [place] [address] Talya Woodard PA [address] [place] [address] [facility] Start: 07-17-2024 End: 07-17-2024 Patient encounter procedure [facility] Start: 07-05-2024 End: 07-05-2024 Patient encounter procedure [facility] Start: 06-27-2024 End: 06-27-2024 Patient encounter procedure 06/27/2024 1:00 PM EDT Appointment [facility] [address] [place] [phone] [facility] Start: 06-26-2024 End: 06-26-2025 CBC panel - Blood by Automated count CBC Lab Routine Diabetes mellitus screening Expected: 06/26/2024 (Approximate), Expires: 06/26/2025 [facility] Work Phone: Comment on above: Expected: 06/26/2024 (Approximate), Expires: 06/26/2025 Start: 06-26-2024 End: 06-26-2025 Measurement of glucose 1 hour after glucose challenge for glucose tolerance test Glucose tolerance, 1 hour Lab Routine Diabetes mellitus screening Expected: 06/26/2024 (Approximate), Expires: 06/26/2025 [facility] Comment on above: Expected: 06/26/2024 (Approximate), Expires: 06/26/2025 Start: 06-26-2024 End: 12-26-2024 US biophysical profile w non stress test US biophysical profile w non stress test Imaging Routine Monochorionic diamniotic twin , antepartum Expected: 06/26/2024 (Approximate), Expires: 12/26/2024 [facility] Comment on above: Expected: 06/26/2024 (Approximate), Expires: 12/26/2024 Start: 06-24-2024 End: 06-24-2024 Patient encounter procedure 06/24/2024 2:30 PM EDT Office Visit [facility] [address] [place] [phone] Americo Reddy MD [address], [address] [place] [address] [facility] Start: 06-21-2024 End: 06-21-2024 Patient encounter procedure 06/21/2024 11:30 AM EDT Office Visit [facility] [address] [place] [phone] Kvng Jordan MD [address], [address] [place] [address] [facility] Start: 06-21-2024 End: 06-21-2024 Patient encounter procedure 06/21/2024 8:45 AM EDT Appointment [facility] [address] [place] [address] [facility] Start: 06-14-2024 End: 06-14-2024 Patient encounter procedure 06/14/2024 2:15 PM EDT Appointment [facility] [address] [place] [address] [facility] Start: 06-07-2024 End: 06-07-2024 Patient encounter procedure 06/07/2024 9:45 AM EDT Appointment [facility] [address] [place] [address] [facility] Start: 05-27-2024 End: 05-27-2024 Patient encounter procedure 05/27/2024 1:00 PM EDT Appointment [facility] [address] [place] [address] [facility] Start: 05-10-2024 End: 05-10-2024 Patient encounter procedure 05/10/2024 1:45 PM EDT Appointment [facility] [address] [place] [address] [facility] Start: 05-07-2024 End: 05-07-2024 Patient encounter procedure 05/07/2024 9:30 AM EDT Office Visit [facility] [address] [place] [phone] Talya Woodard PA [address] [place] [address] [facility] Start: 04-26-2024 End: 04-26-2024 Patient encounter procedure 04/26/2024 8:45 AM EST Office Visit [facility] [address] [place] [address] Kvng Jordan MD [address], [address] [place] [address], [place] [address] [facility] Start: 04-26-2024 End: 04-26-2024 Patient encounter procedure 04/26/2024 7:30 AM EST Appointment [facility] [address] [place] [phone] [facility] Start: 04-09-2024 End: 04-09-2024 Patient encounter procedure 04/09/2024 11:20 AM EST Routine [facility] [address] [place], [place] [address] [place] [phone] Dhruv Recinos, DO [address] [place] [address] Arrived [facility] Comment on above: Arrived Start: 04-08-2024 End: 04-08-2024 Patient encounter procedure 04/08/2024 9:20 AM EST Routine [facility] [address] [facility] [place] [phone] Dhruv Recinos, DO [address] [place] [address] [facility] Start: 03-08-2024 End: 03-08-2025 [...] first trimester Expected: 03/08/2024 (Approximate), Expires: 03/08/2025 [facility] Comment on above: Expected: 03/08/2024 (Approximate), Expires: 03/08/2025 Start: 10-29-2023 COVID-19 Vaccine ( season) COVID-19 Vaccine ( season) [facility] Start: 10-29-2023 Influenza vaccination Influenza Vacc ine [facility] Start: 11-27-2021 DTaP,Tdap and Td Vaccines (7 - Td or Tdap) DTaP,Tdap and Td Vaccines (7 - Td or Tdap) [facility] Start: 10-05-2019 Screening for malign ant neoplasm of cervix Pap Smear [facility] Start: 2017 DTaP,Tdap and Td Vaccines (1 - Tdap) DTaP,Tdap and Td Vaccines (1 - Tdap) [facility] Start: 2017 HEPATITIS B IMMUNIZATION (1 of 3 - 19+ 3-dose series) HEPATITIS B IMMUNIZATION (1 of 3 - 19+ 3-dose series) [facility] Start: 2016 Adult BMI Follow Up Plan Adult BMI Follow Up Plan [facility] Start: 2016 Adult BMI Screening Adult BMI Screen ing [facility] Start: 2013 HPV IMMUNIZATION (1 - 3-dose series) HPV IMMUNIZATION (1 - 3-dose series) [facility] Start: 10-05-2011 VARICELLA IMMUNIZATI ON (1 of 2 - 13+ 2-dose series) VARICELLA IMMUNIZATION (1 of 2 - 13+ 2-dose series) [facility] Start: 2010 Depression Screening Depression Scre ening [facility] Start: 2010 Tobacco Screening Tobacco Screening [facility] Start: 2005 DTAP/Tdap/Td IMMUNIZATION (1 - Tdap) DTAP/Tdap/Td IMMUNIZATION (1 - Tdap) [facility] Start: 10-05-1999 MMR IMMUNIZATION (1 of 1 - Standard series) MMR IMMUNIZATION (1 of 1 - Standard series) [facility] Bacteria identified in Urine by Culture Urine culture Microbiology Routine Missed menses Ordered: 03/08/2024 [facility] Comment on above: Ordered: 03/08/2024 CBC W Auto Different ial panel - Blood CBC and differential Lab Routine Missed menses , unspecified gestational age Ordered: 03/08/2024 [facility] Comment on above: Ordered: 03/08/2024 Hemoglobin A1c/Hemoglobin.total in Blood Hemoglobin A1c Lab Routine Missed menses , unspecified gestational age Ordered: 03/08/2024 [facility] Comment on above: Ordered: 03/08/2024 Hepatitis B virus surface Ag [Presence] in Serum or Plasma by Immunoassay Hepatitis B surface antigen Lab Routine Missed menses , unspecified gestational age Ordered: 03/08/2024 [facility] Comment on above: Ordered: 03/08/2024 Hepatitis C virus Ab [Presence] in Serum or Plasma by Immunoassay Hepatitis C antibody Lab Routine Missed menses , unspecified gestational age Ordered: 03/08/2024 [facility] Comment on above: Ordered: 03/08/2024 HIV-1/HIV-2 antigen/antibody combination immunoassay HIV-1 and HIV-2 antibodies Lab Routine Missed menses , unspecified gestational age Ordered: 03/08/2024 [facility] Comment on above: Ordered: 03/08/2024 Patient Education Muscle Strain (ED) [facility] Patient referral [facility] Reagin Ab [Presence] in Serum by RPR RPR Lab Routine Missed menses , unspecified gestational age Ordered: 03/08/2024 [facility] Comment on above: Ordered: 03/08/2024 Rubella antibody, IgG Rubella an tibody, IgG Lab Routine Missed menses , unspecified gestational age Ordered: 03/08/2024 [facility] Comment on above: Ordered: 03/08/2024 Immunizations Immunization Date Immunization Notes Care Provider Sherron meek 01-30-2012 influenza virus vaccine, unspecified formulation Lara Borrero RN [facility] Payers Date Payer Category Payer Self-pay [id number] 2024 Medicaid [facility] Medicaid Address: [address] [place] [address] [id number] 2024 Medicaid O [id number] 2023 Private Health Insurance [facility] MEDICAID [id number] 1998 Unknown [id number] 2.16.840.1.098242.3.579.2. 727 1998 Unknown [id number] 2.16.840.1.793512.3.579.2. 593 1998 Unknown [id number] 2.16.840.1.388910.3.579.2. 593 1998 Unknown [id number] 2.16.840.1.000287.3.579.2. 593 1998 Unknown [id number] 2.16.840.1.267174.3.579.2. 593 1998 Unknown [id number] 2.16.840.1.532640.3.579.2. 593 1998 Unknown [id number] 2.16.840.1.329808.3.579.2. 593 1998 Unknown [id number] 2.16.840.1.268497.3.579.2. 593 1998 Unknown [id number] 2.16.840.1.631381.3.579.2. 1281 1998 Unknown [id number] 2.16840.1.798016.3.579.2. 1281 1998 Unknown [id number] 2.16.840.1.768897.3.579.2. 1281 1998 Unknown [id number] 2.16.840.1.217476.3.579.2. 1281 1998 Unknown [id number] 2.16.840.1.965561.3.579.2. 1281 1998 Unknown [id number] 2.16840.1.689781.3.579.2. 1281 1998 Unknown [id number] 2.16.840.1.450874.3.579.2. 1286 1998 Unknown [id number] 2.16.840.1.386360.3.579.2. 1286 1998 Unknown [id number] 2.16.840.1.542958.3.579.2. 1259 1998 Unknown [id number] 2.16.840.1.361145.3.579.2. 1259 1998 Unknown [id number] 2.16.840.1.670407.3.579.2. 1259 1998 Unknown [id number] 2.16.840.1.111184.3.579.2. 1259 1998 Unknown [id number] 2.16.840.1.500205.3.579.2. 1259 1998 Unknown [id number] 2.16.840.1.667925.3.579.2. 1259 1998 Unknown [id number] 2.16.840.1.036611.3.579.2. 1259 1998 Unknown [id number] 2.16.840.1.248672.3.579.2. 1259 1998 Unknown [id number] 2.16.840.1.847225.3.579.2. 1285 1998 Unknown [id number] 2.16840.1.251376.3.579.2. 1285 1998 Unknown [id number] 2.16840.1.636105.3.579.2. 128 1998 Unknown [id number] 2.16840.1.845511.3.579.2. 128 1998 Unknown [id number] 2.16.840.1.211569.3.579.2. 128 1998 Unknown [id number] 2.16840.1.087401.3.579.2. 128 1998 Unknown [id number] 2.16840.1.726223.3.579.2. 128 1998 Unknown [id number] 2.16840.1.263326.3.579.2. 128 1998 Unknown [id number] 2.16.840.1.284875.3.579.2. 128 1998 Unknown [id number] 2.16840.1.518568.3.579.2. 128 1998 Unknown [id number] 2.16.840.1.290610.3.579.2. 1286 1998 Unknown [id number] 2.16.840.1.931115.3.579.2. 1286 1998 Unknown [id number] 2.16.840.1.957454.3.579.2. 1286 1959 Unknown [id number] 1959 Unknown [id number] Unknown [id number] 2.16.840.1.142526.3.579.2. 531 Social History Date Type Detail Facility Start: 06-29-2020 End: 06-29-2023 Tobacco smoking status NHIS Never smoked tobacco (finding) [facility] Start: 2000 Sex Assigned At Female [facility] Tobacco Household tobacc o concerns: Yes. [facility] Tobacco smoking status No Smoking Status Entered [facility] Start: 03-08-2024 End: 09-11-2024 Sex Assigned At Female [facility] Start: 06-29-2023 End: 04-11-2024 Tobacco use and exposure Smokeless tobacco non-user [facility] Start: 03-08-2024 End: 08-21-2024 Alcoholic beverage intake Lifetime non-drinker (finding) [facility] Start: 03-08-2024 End: 09-11-2024 History of Social function [facility] Start: 01-17-2024 [facility] Start: 1998 Sex assigned at Not on file [facility] Tobacco smoking status OHIS Tobacco smoking consumption unknown [facility] Start: 09-30-2014 End: 08-01-2024 Sex Female (finding) [facility] Start: 05-31-2024 Alcoholic beverage intake Ex-drinker (finding) [facility] NEGATED: Highlighted rowStart: NINF History of tobacco use Passive smoker [facility] Medical Equipment Procedure Code Equipment Code Equipment Origin al Text Equipment Identifier Dates 1 strip by In Vi tro route Daily Use in the morning prior to breakfast, 1 hour after each meal for a total of 4times daily. 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 Rashaad Recinos Name: Dr. Edith Ford Name: City: City:[place] City: Last time seen: 08/28/24 Last time [...] do it first Is there anything about your culture, zoroastrianism, or personal beliefs we need to know about to care for you: Other None Primary Language spoken: Citizen Of [place] [22] Primary Language for learning: Citizen [place] Are you currently in a relationship where you are physically hurt, threatened or made to fee afraid? [] Yes [] No Trauma Counsellor needed? [] Yes [] No Marital status/Living [...] Interpersonal Safety: Low Risk (05/31/2024) Received from [facility] Intimate Partner Violence Safe in relationship? [...] If yes, where: On thge following scale, qagan tayagungin the number, which describes your current level [...] hour after meals including sending them to weekly on Monday night/Monday and being active 30 minutes most days of the week with logging this on BG log weekly. Noted will contact weekly regarding BG log being reviewed and instructions/recommendations. Face to face time 40 minutes. . Nutritional Assessment Form Date: 09/11/2024 DORON: Estimated Date of Delivery: 10/09/24 EGA: 36w0d Past Medical History: Diagnosis Date BMI 45.0-49.9, adult ([facility]) Irregular periods Oligomenorrhea PCOS (polycystic ovarian syndrome) [...] Current BMI: Body mass index is 53.58 kg/m . Pre Wt. Category: obese Current Weight: Wt [...] Educational Level High School Family issues stable Cultural/ethnic/anabaptism influences denies Exercise approved by MD? Yes Current Exercise program walking Who prepares the meal pt Who purchase food at your home? pt Equipment use for cooking/food storage has all Food Assistance(Ex.WIC, Food [place]) has already Dining out Yes couple times per week Appetite/Appetite changes no change Weight History stable Do you have cats at home? Infant Feeding Plans Breast Feeding If you have cats, who cleans the litter box? Cravings/Aversions/Pica none Nutrition Assessment Worksheet: Week/Weekend Food Recall Breakfast Something 1-2 hours after waking up Snack Lunch Potwin Snack Fruit or Hot cheetos and cream cheese Dinner Kyrgyz food Rice Onion green pepper Steak Water and pepsi 1-2 times per day Snack sometimes Snack Time Juan Diego Fulton presents for diet instruction per doctor [...] recall. Given that she only has a week until delivery, instructed in no concentrated sweets meal plan, encouraging her for focus on making most of her meals nonstarchy veggies, proteins, and [...] time 20 minutes. documented in this encounter [facility] 09-11-2024 Instructions Zeynep Sellers RN - 09/11/2024 11:00 AM [...] HOURS WHILE AWAKE [facility] History of Presen t illness Narrative Reason [...] nursing note reviewed. Exam conducted with a fireperson present. Vitals: Estimated body mass index is 52.84 kg/m as calculated from the following: Height as of 06/02/22: 5' 6 . Weight as of this encounter: 327 lb 6.4 oz. BP: 122/70 Patient's last menstrual period was 01/03/2024. ASSESSMENT & PLAN ICD-10-CM 1. Third trimester ([facility] Z34.93 2. 34 weeks gestation of ([facility]) Z3A.34 Return OB: Patient presents today for a routine obstetrics appointment. Patient is currently 34w0d . Patient states she is doing well but has complaints of being tired due to current . Patient has verbalizes frequent movement. labor precautions was discussed/given and patient was instructed to perform kick counts three times a day. Continues growth ultrasound every four weeks with MFM. Doing well with NST and BPP and First dose of Celestone give on 08/28/24. Follow up in 2 weeks. No orders of the defined types were placed in this encounter. Follow Up: Patient is to return to office in 2 week for routine OB appointment. Documented by Tracie Kaufman NP on behalf of: Dhruv Jorje, DO documented in this encounter [facility] 08-21-2024 History of Presen t illness Narrative [...] nursing note reviewed. Exam conducted with a fireperson present. Vitals: Estimated body mass index is 51.71 kg/m as calculated from the following: Height as of 06/02/22: 5' 6 . Weight as of this encounter: 320 lb 6.4 oz. BP: 120/72 Patient's last menstrual period was 01/03/2024. ASSESSMENT & PLAN ICD-10-CM 1. 33 weeks gestation of ([facility]) Z3A.33 POCT urinalysis dipstick manually resulted 2. Third trimester ([facility]) Z34.93 POCT urinalysis dipstick manually resulted 3. Monochorionic diamniotic twin , antepartum ([facility]) O30.039 POCT urinalysis dipstick manually resulted 4. [...] Tracie Kaufman NP documented in this encounter [facility] 08-16-2024 Miscellaneous Notes Compound Machine Operator jose providing 08/29 & 09/11 appt details and requested a return call if she had any issues or concerns. documented in this encounter [facility] 08-16-2024 Telephone encounter Note Compound Machine Operator jose providing 08/29 & 09/11 appt details and requested a return call if she had any issues or concerns. [facility] 08-05-2024 History of Presen t illness Narrative [...] nursing note reviewed. Exam conducted with a fireperson present. Vitals: Estimated body mass index is [...] week for routine OB appointment. Continues with M for Ultrasound and twin gestation and doing well. Continues with biweekly NST and weekly BPP. Will plan for celestone at 34 weeks. Documented by Tracie Kaufman NP on behalf of: Dhruv Recinos DO documented in this encounter [facility] 07-17-2024 History of Presen t illness [...] evidence of growth restriction. No evidence of ntuq-ll-avsd transfusion syndrome. Currently the patient has no [...] Medical History: Diagnosis Date BMI 45.0-49.9, adult ([facility]) Irregular periods Oligomenorrhea PCOS (polycystic ovarian syndrome) [...] place and person. RECOMMENDATION: 1. Continue serial lpfx-kl-rcya transfusion surveillance at [facility] office. 2. Initiate testing form once a week NST and MELODY starting at 32 weeks gestation until delivery. 3. Patient at the moment is considered low risk and delivery at 37 weeks gestation at her local hospital. 4. Patient understands increased risk of based on twins. Thank you for allowing me to participate in Juan Diego Hung Fult[facility]. If there are any questions, please do not hesitate to call me. Sincerely, AMERICO REDDY MD documented in this encounter [facility] 07-17-2024 Miscellaneous Notes Addended by: AMERICO REDDY on: 07/25/2024 10:00 AM Modules accepted: Level of Service documented in this encounter [facility] 05-21-2025 Note Addended by: AMERICO PEREIRA on: 07/25/2024 10:00 AM Modules accepted: Level of Service [facility] 06-26-2024 History of Presen t illness Narrative [...] nursing note reviewed. Exam conducted with a fireperson present. Vitals: Estimated body mass index is [...] Dhruv Recinos DO documented in this encounter [facility] 06-21-2024 Miscellaneous Notes I called pt and left a message about the u;/s Talya F scheduled her for documented in this encounter [facility] 06-21-2024 Telephone encounter Note I called pt and left a message about the u;/s Talya Quiroga scheduled her for [facility] 06-21-2024 History of Presen t illness Narrative [...] Patient would like to discuss her swelling [facility] Maternal- Medicine Office Note Reason For Office Visit: monochorionic - diamniotic twins HPI: Juan Diego Fulton is a 23 y.o. at 24w2d with Estimated Date of Delivery: 10/09/24 who presented for consultation from Dhruv Recinos DO regarding Chief Complaint Patient presents with Bath-Di Twins Baby A EIF I have reviewed [...] % on ultrasound today. No evidence of efsg-ma-anbt transfusion or TAPS. The patient has a visit at the therapy Center at [facility] as on prior imaging there was a significant discrepancy in the estimated weight. When she was evaluated at [place] there was no evidence of selective growth [...] Medical History: Diagnosis Date BMI 45.0-49.9, adult ([facility]) Irregular periods Oligomenorrhea PCOS (polycystic ovarian syndrome) [...] Interpersonal Safety: Low Risk (05/31/2024) Received from [facility] Intimate Partner Violence Safe in relationship? [...] for diabetes She desires to deliver at [facility] Recommendations: Daily low dose (81mg) aspirin for preeclampsia prevention To return in 2 weeks for Dopplers for re-evaluation of the twins TTTS and TAPS protocol scheduled at [facility] Follow-up survey/echo scheduled growth every 4 weeks at [facility] monitoring with weekly NST and DVP at 32 weeks until delivery done through primary OB office Delivery [id number] gestation. If the remains stable consider delivery [...] of delivery: The patient desires delivery at [facility]. Please initiate transfer of care Continue to recommend marijuana cessation The patient has a scheduled follow-up up with [facility] Plan reviewed with patient. She vocalized understanding all questions answered. The patient is to continue with routine care in your office Thank you for allowing me to participate in her care. Please contact me if you have any concerns. Kvng Jordan MD, FACOG (she/hers) Maternal- Medicine [facility] [address] [facility] [address] [place] [address] This document was created with [employer] technology. Though I make every effort to review the dictation as it is transcribed, on occasion the spoken word can be misinterpreted by the technology leading to inappropriate words, phrases, or sentences. This note is addressed to the requesting provider as a consultation for clinical guidance. Specific medical abbreviations are occasionally used and those are generally approved by the [place]?Board of?Obstetrics and?Gynecology?as well as?Gilbert s abbreviations. The above plan of care was based solely on the diagnoses for which a consultation was requested. ?More frequent testing may be indicated based on her other medical/obstetrical conditions. The management of other or medical conditions is beyond the scope of requested consultation and will continue to be followed by the primary lumber stacker driver or primary care provider. Note to patient: [...] of the practitioner. documented in this encounter [facility] 05-27-2024 History of Presen t illness Narrative Headache/epigastric pain/blurry vision/swelling? No Cramping/contractions? No Abnormal vaginal discharge? No Spotting or vaginal bleeding? No Loss or gush of fluid like your water may have broken? No Recent ER visits or hospitalizations? No Any concerns that you would like me to mention to the provider today? No [facility] Maternal- Medicine Office Note Reason For Office: [...] Medical History: Diagnosis Date BMI 45.0-49.9, adult ([facility]) Irregular periods Oligomenorrhea PCOS (polycystic ovarian syndrome) [...] I would recommend 2nd opinion at the [facility]. The is at risk of adverse [...] of delivery for uncomplicated monochorionic diamniotic twins [id number] I reviewed with them that monochorionic diamniotic twin gestations with isolated growth restriction if they remain clinically stable delivery is [id number]. 3. Echogenic intracardiac focus of fetus on [...] TTTS/TAPS surveillance and growth ultrasounds Referral to [facility] initiated Timing of delivery to be readdressed pending clinical course. Further recommendations to be made at follow-up visit Location of delivery would recommend tertiary care center the patient desires delivery at [facility]. Please initiate transfer of care to for the [facility] The patient has a scheduled follow-up with [facility] Plan reviewed with patient. She vocalized understanding all questions answered. The patient is to continue with routine care in your office Thank you for allowing me to participate in her care. Please contact me if you have any concerns. Kvng Jordan MD, FACOG (she/hers) Maternal- Medicine [facility] [address] [facility] [address] [place] [address] This document was created with [employer] technology. Though I make every effort to review the dictation as it is transcribed, on occasion the spoken word can be misinterpreted by the technology leading to inappropriate words, phrases, or sentences. This note is addressed to the requesting provider as a consultation for clinical guidance. Specific medical abbreviations are occasionally used and those are generally approved by the [place]?Board of?Obstetrics and?Gynecology?as well as?Gilbert sesay abbreviations. The above plan of care was based solely on the diagnoses for which a consultation was requested. ?More frequent testing may be indicated based on her other medical/obstetrical conditions. The management of other or medical conditions is beyond the scope of requested consultation and will continue to be followed by the primary lumber stacker driver or primary care provider. Note to patient: [...] of the practitioner. [facility] Miscellaneous Notes Please call us back we are holding an kade for you. [facility]-10[facility]2024 Telephone encounter Note Please call us back we are holding an kade for you. [facility] 04-09-2024 History of Presen t illness Narrative [...] by LYNETTE Moreno documented in this encounter [facility] 03-08-2024 History of Presen t illness [...] or undercooked meat, and [facility]. Patient has also been advised to not change litter boxes and eat 6 small meals a day. Patient has been consulted regarding the do's and don'ts of . Patient was given labs and all questions and concerns were answered. Patient was given script for vitamins and Zofran. Patient given [place] to do at 10 weeks. Follow Up: Patient is to return in 4 weeks for routine OB appointment. Follow Up: Patient is to have labs drawn at directed and return to office for initial OB appointment with provider. Patient may call office as needed with any concerns or questions. Nurse Visit Completed by: Mackenzie Davison LPN documented in this encounter [facility] 03-03-2022 Note Echocardiology Procedure Exam Date/Time Accession # Ordering Echo Transthoracic 03/03/2022 09:37 EST [id number] Edith oFrd MD Complete CPT code [id number] Reason for Exam (Echo Transthoracic Complete) Cardiomegaly I51.[address] [address] Adult Echocardiogram Report Name: JUAN DIEGO FULTON Study Date: 03/03/2022 09:03 AM BP: 111/78 mmHg Patient Location: [facility] HR: 68 : 2000 Gender: Female Height: 66 in Age: 21 yrs Ethnicity: [facility] Weight: 298 lb Reason For Study: Cardiomegaly I51.7 BSA: 2.4 m2 History: No cardiac history per patient Ordering Physician: Edith Ford Referring Physician: Edith Ford Performed By: Tara Lilly, [facility] Interpretation Summary No comparison [...] Garcia MD Transcribed by: MATHEW Technologist: KEN [facility] 06-29-2020 Hospital Discharg e instructions [...] fever vomiting or any other concerns [facility] Evaluation + Plan note No data available for this section [facility] Evaluation note No Assessments Infor mation Available [facility] Evaluation note Diagnosis Missed menses , unspecified gestational age Encounter for supervision of normal first in first trimester Nausea Nausea alone documented in this encounter [facility] HealthcareEvaluation note* Diagnosis Second trimester state, incidental 13 weeks gestation of documented in this encounter [facility]* Diagnosis Monochorionic diamniotic twin gestation in second trimester- Primary 16 weeks gestation of [facility] Diagnosis Monochorionic diamniotic twin gestation in second trimester- Primary [facility]* Diagnosis 20 weeks gestation of - Primary Monochorionic diamniotic twin gestation in second trimester Echogenic intracardiac focus of fetus on ultrasound documented in this [facility]* Diagnosis Monochorionic diamniotic twin gestation in second trimester- Primary [facility] Diagnosis Monochorionic diamniotic twin gestation in second trimester- Primary Echogenic intracardiac focus of fetus on ultrasound [facility]* Diagnosis 24 weeks gestation of - Primary Monochorionic diamniotic twin gestation in second trimester [facility]* Diagnosis Monochorionic diamniotic twin gestation in second trimester- Primary Echogenic intracardiac focus of fetus on ultrasound 24 weeks gestation of [facility] in this [facility]* Diagnosis Second trimester state, incidental 25 weeks gestation of Diabetes mellitus screening Screening for diabetes mellitus Monochorionic diamniotic twin , antepartum documented in this encounter [facility]* Diagnosis Monochorionic 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- Primary [facility]* Diagnosis Monochorionic diamniotic twin gestation in second trimester- Primary [facility] in this encounter [facility] noteNo assessment information available [facility] Work Phone: Evaluation note* Diagnosis 30 weeks gestation of Third trimester state, incidental documented in [facility] encounter [facility]* Diagnosis 33 weeks gestation of (HHS-HCC) Third trimester (HHS-HCC) state, incidental Monochorionic diamniotic twin , antepartum (HHS-HCC) Nonintractable headache, unspecified chronicity pattern, unspecified headache type Other iron deficiency anemia [facility]* Diagnosis Third trimester (HHS-HCC) state, incidental 34 weeks gestation of (HHS-HCC) documented [facility] encounter [facility]* Diagnosis Monochorionic 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- Primary Gestational diabetes mellitus (GDM) in third trimester, gestational diabetes method of control unspecified [facility] Diagnosis Monochorionic 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 Gestational diabetes mellitus (GDM) in third trimester, gestational diabetes method of control unspecified documented in this encounter [facility] illness Narrative* Ayah Benton M.D. - 05/31/2024 3:30 PM EDT [facility] Conference Members present: Ayah Benton MD; MARTIN SuárezN, RNII, RNC-ARMANDO; HPI: Juan Diego Fulton is a 23 y.o. who is presently 21w2d gestation (Estimated Date of Delivery: 10/09/24 by 7 week US) who was referred by Kvng Jordan MD for evaluation and management of Vivek twins with concern for TTTS and/or sFGR. Juan Diego Fulton was referred to the [facility] on 05/28/[address] Kvng Jordan at [facility]. Significant findings include ultrasound completed on [...] TESTING: NIPT (03/15/24) - Low Risk Female [place] Carrier Screen (03/15/24): Negative GTT, 1h: Not [...] ACOG form Imaging: Echocardiogram on 05/31/2024 at [facility]: FETUS A SUMMARY: 1. Normal cardiac [...] rate and rhythm. Ultrasound on 05/31/2024 at [facility]: Impression ========= Monochorionic diamniotic twin gestation [...] 34-37 weeks at present. Referral back to [facility] if concern for TTTS, TAPS, sFGR. We offer laser until 27 weeks gestation. Family decision: Agrees with above recommendations and will go forward I spent 60 minutes in the encounter. Ayah Benton M.D. Maternal- Medicine Attending [facility] Dis[facility] instructions No data available for this section [facility]ructionsNot on filedocumented in this encounter [facility] on filedocumented in this encounter [facility] on filedocumented in this encounter [facility]Not on filedocumented in this encounter [facility]ructionsNot on filedocumented in this encounter [facility]* Attachments The following attachments cannot be sent through Care Everywhere. * Preeclampsia ([place]) documented in this encounterProMediaz Health SystemInstructionsNot on file documented in this encounterProMer[facility] SystemProgress note No data available for this section [facility] Advance Directives Advance Directive Response Recorded [...] team informatio n (unrecognized section and content) Carding Machine Operator Relationship Specialty Start Date End Date Edith Ford MD [address] [place] [address] PCP - General Family Medicine 09/01/22 Carding Machine Operator Relationship Specialty Start Date End Date Edith Ford MD [address] [place] [address] PCP - General Family Medicine 09/01/22 Carding Machine Operator Relationship Specialty Start Date End Date Edith Ford MD [address] [place] [address] PCP - General Family Medicine 09/01/22 Carding Machine Operator Relationship Specialty Start Date End Date Edith Ford MD [address] [place] [address] PCP - General Family Medicine 09/01/22 Carding Machine Operator Relationship Specialty Start Date End Date Dhruv Recinos D.O. [address] [place] [address] [place] [id number] PCP - General [facility] Obstetrics & Gynecology 05/28/24 Carding Machine Operator Relationship Specialty Start Date End Date Edith Ford MD [address] [place] [address] PCP - General Family Medicine 09/01/22 Carding Machine Operator Relationship Specialty Start Date End Date Edith Ford MD [address] [place] [address] PCP - General Family Medicine 09/01/22 Carding Machine Operator Relationship Specialty Start Date End Date Edith Ford MD [address] [place] [address] PCP - General Family Medicine 09/01/22 Team Status: Inactive Member Role Status Dates Cici Guadalupe DO Attending Provider Active Start: July 30, 2024 End: July 30, 2024 Carding Machine Operator Relationship Specialty Start Date End Date Edith Ford MD [address] [place] [address] PCP - General Family Medicine 09/01/22 Carding Machine Operator Relationship Specialty Start Date End Date Edith Ford MD [address] [place] [address] PCP - General Family Medicine 09/01/22 Carding Machine Operator Relationship Specialty Start Date End Date Edith Ford MD [address] [place] [address] PCP - General Family Medicine 09/01/22 Carding Machine Operator Relationship Specialty Start Date End Date Edith Ford MD [address] [place] [address] PCP - General Family Medicine 09/01/22 Carding Machine Operator Relationship Specialty Start Date End Date Edith Ford MD [address] [place] [id number] PCP - General Family Medicine 09/01/22 INFORMATION SOURCE (unrecogn ized section and content) DATE CREATED AUTHOR 03/29/2022 [facility] DATE CREATED AUTHOR AUTHOR'S ORGANIZ ATION 05/13/2022 [facility] DATE CREATED AUTHOR AUTHOR'S ORGANIZ ATION 06/15/2024 [facility] DATE CREATED AUTHOR AUTHOR'S ORGANIZ ATION 06/16/2024 [facility] DATE CREATED AUTHOR AUTHOR'S ORGANIZ ATION 08/03/2024 [facility] DATE CREATED AUTHOR AUTHOR'S ORGANIZ ATION 08/30/2024 [facility] EPIC DATE CREATED AUTHOR AUTHOR'S ORGANIZ ATION 09/01/2024 [facility] Reason for Visit (unrecogniz ed section and content) Reason Comments Amenorrhea Reason Comments Routine Visit Reason Comments growth discrepancy Reason Comments Monochorionic Twins Reason Comments Bath-Di Twins Baby A EIF Reason Comments Monochorionic Diamniotic Twin Reason Comments Gestational Diabetes Specialty Diagnoses / Procedures Referred By Laureano brown Referred To Contact Maternal and Medicine Diagnoses Monochorionic 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 Gestational diabetes mellitus (GDM) in third trimester, gestational diabetes method of control unspecified Dhruv Recinos, DO [address] [place] [address] Phone: tel: fax: Maternal- Medicine at [facility] [address] [facility] [place] [address] Phone: tel: fax: Referral ID Status Reason Start Date Expiration Date Visits Requested Visits Authorized [id number] Pending Review Specialty Services Required 08/29/2024 08/29/2025 1 1 Goals (unrecognized section and content) Goals may [...] BE BASED ON THE PRIMARY CLINICAL RECORDS. [facility]. provides no warranty or guarantee of the accuracy or completeness of information in this document.
== END 2024-09-12 19:37 | disposition home or self-care (01) ==
LOC: LAB 19:36
PROVIDERS: PCP Family Medicine; Visit Provider Obstetrics & Gynecology
DX: Z34.93 Encounter for supervision of normal pregnancy, unspecified, third trimester (principal); Z3A.36 36 weeks gestation of pregnancy
CPT/HCPCS: 87081

== ENCOUNTER 2024-09-16 05:53 | Inpatient (IN) | payer OTHER, SELFPAY ==
--- OUTSIDE RECORDS SUMMARY | 2020-08-25 12:00 | XMS_ITS | Continuity of Care Document ---
Author Organization [facility] Address [address] [place] [address] Phone Care Team Providers Care Rug Shampooer Name Role Phone Woodrow LANEJessica Unavailable Unavailable Allergies, Adverse Reactions, Alerts Substance Reaction Status Criticality No Known Allergies Active No Inform ation Procedures Procedure Date Bitewings Four Films Prophylaxis Adult Oral Hygiene Instruction Periodic Oral Eval Estab Patient 2020 Oral Hygiene Instruction Treatment Completed Resin Composite 1s; Posterior 9 Topical Jorge Of Flouride Varnish 019 Prophylaxis Adult Periodic Oral Eval Estab Patient 2018 Bitewings Four Films Nutrit Couns For Control Of [place] Dis [place] Oral Hygiene Instruction Prophylaxis Adult Topical Jorge Of Flouride Varnish 018 Oral Hygiene Instruction Moderate Risk Intraoral-complete Series (bw) 18 Comp Oral Eval New/estab Patient 2017 Oral Hygiene Instruction Advance Directives Directive Yes / No Effective Date File Name No Information Encounters Encounter Description Practice Location Reason(s) For Visit Diagnoses Date Provider Providers Copied on Encounter [facility], [address] [facility], [place], [place], [id number] , [place] tel:[phone] Dental Clinic prophy (chief complaint) Encounter for screening for dental disorders 1 Woodrow DMD Jessica. [address] [place], [place], [id number], [place]. tel:[phone] [facility], [address] [place], [place], [id number] , [place] tel: [phone] Dental Clinic filling (chief complaint) Encounter for screening for dental disorders 9 [facility]. [address] [place], [place], [id number], [place]. tel:[phone] [facility], [address] [place] [address], [id number] , [place] tel: [phone] Dental Clinic Prophy (chief complaint) Encounter for screening for dental disorders 9 [facility]. [address] [place] [address], [id number], [place]. tel:[phone] [facility], [address] [place] [address], [id number] , [place] tel: [phone] Dental Clinic Encounter for screening for dental disorders 8 Eitan DMD Mehul. [address] [place], [address], [place]. tel:[phone] [facility], [address] [place] [address], [id number] , [place] tel: [phone] Dental Clinic dental new (chief complaint) Encounter for screening for dental disorders 8 Ama DMD Deepasulochana. [address] [place], [address], [place]. tel:[phone] Family History Family Member Type Diagnosis Age At Onset Father Problem (finding) Alive and well Mother Problem (finding) Alive and well Payers Payer name Insurance type Covered republican ID Blane hess(s) D Medicaid [facility] [id number] Social History Type Description Quantity Date Captured Comments Alcohol Use Details No Caffeine Use Details No Tobacco Use Status Current non-smoker Smoking Status Never smoker Sex Female Sexual Orientation Straight or heterosexual Gender Identity Female Vital Signs Date / Time: Height Weight BMI Pulse Rate Blood Pressure Temperature Respiratory Rate Body Surface Area Head Circumference Head Circ. Percentile Wt./Fab. Percentile BMI percentile Pulse Ox Inhaled Ox 3:58 PM 97 /min 101/69 mm[Hg] 98.50 F Chief Complaint And Reason For Visit From encounter dated '08/25/2020 16:00'. prophy (chief complaint). Description: prophy Reason For Referral Reason For Referral No Information History Of Present Illness Encounter Date Complaint History Of Prese nt Illness prophy prophy filling filling Prophy Prophy dental new dental new Functional Status Date Functional Assessmen t No Information Instructions Date Instruction Additional Infor mation No Information Assessments Type Assessment Date No Information Patient Care Teams Name Effective Dates (start - stop) Status Members No Information
--- OUTSIDE RECORDS SUMMARY | 2023-07-17 05:40 | XMS_ITS ---
Author Organization [facility] Address [address] [place] [address] Care Team Providers Care Overlock Sewing Machine Operator Name Role Phone Siddharth Weinstein Primary Care Provider REASON FOR VISIT NEW PATIENT DENTAL EXAM Encounters Encounter Location Date Provider Diagnosis [address] [place] [address] 07/17/2023 Siddharth Weinstein Plan Of Treatment No Information Progress Notes * JUAN DIGEO ROMERODOB: 9 (23 yo F)Acc No.[id number]:07/17/2023 Patient: Paola JUAN DIEGO LE Provider: Gage Weinstein DDS :2000 A ge:22 Y S ex:Female Date:07/17/2023 Address:[address] [place], [place] [id number] Subjective: * Chief Complaints: * 1 . NEW PATIENT DENTAL EXAM. * Medical History: Objective: * Vitals: Assessment: Plan: * Treatment: * Images: * Electronic signature of Chris Weinstein DDS on 09/16/2024 at 05:58 AM EDT Sign off status: Pending * Provider: Gage Weinstein DDS Date: 07/17/2023 Generated for Roma taylor/Ashwin/eTransmitting on: 0 09/16/2024 05:58 AM EDT
--- OUTSIDE RECORDS SUMMARY | 2024-03-07 06:40 | XMS_ITS ---
Author Organization [facility] Address [address] [place] [address] Care Team Providers Care Track Supervisor Name Role Phone Siddharth Weinstein Primary Care Provider REASON FOR VISIT NEW PT EXAM (EXTREMEM TOOTH PAIN) Encounters Encounter Location Date Provider Diagnosis [address] [place] [address] 03/07/2024 Siddharth Weinstein Plan Of Treatment No Information Progress Notes * JUAN DIEGO ROMERODOB: [birth year] (23 yo F)Acc No.[id number]:03/07/2024 Patient: Paola JUAN DIEGO LE Provider: Gage Weinstein DDS :2000 A ge:23 Y S ex:Female Date:03/07/2024 Address:[address] [place], [place] [id number] Subjective: * Chief Complaints: * 1 . NEW PT EXAM (EXTREMEM TOOTH PAIN). * Medical History: Objective: * Vitals: Assessment: Plan: * Treatment: * Images: * Electronic signature of Chris Weinstein DDS on 09/16/2024 at 05:58 AM EDT Sign off status: Pending * Provider: Gage Weinstein DDS Date: 03/07/2024 Generated for Roma taylor/Ashwin/eTransmitting on: 0 09/16/2024 05:58 AM EDT
--- OUTSIDE RECORDS SUMMARY | 2024-09-11 11:00 | XMS_ITS | Encounter Summary ---
Author Organization [facility] tem Address [facility] [place]-[id number] [address] [place] [address] Care Team Providers Care Anvil Seating Press Operator Name Role Phone Unavailable Primary Care Provider Unavailabl e Reason for Visit * Reason Comments Gestational Diabetes * Consultation (Routine) - Pending Review Specialty Diagnoses / Procedures Referred By Laureano t Referred To Contact Maternal and Medicine Diagnoses Monochorionic 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 Gestational diabetes mellitus (GDM) in third trimester, gestational diabetes method of control unspecified Dhruv Recinos, DO [address] [place] [address] Phone: tel: fax: Maternal- Medicine at [facility] [address] [place] [address] Phone: tel: fax: Referral ID Status Reason Start Date Expiration Date Visits Requested Visits Authorized [id number] Pending Review Specialty Services Required 08/29/2024 08/29/2025 1 1 Encounter Details Date Type Department Care Team (Latest Contact Info) Description 09/11/2024 11:00 AM EDT Support Visit Maternal- Medicine at [facility] [address] [place] [phone] Ivon Otero, NABIL [address] [place], [place] [id number] Monochorionic 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; Gestational diabetes mellitus (GDM) in third trimester, gestational diabetes method of control unspecified Social History Tobacco Use Types Packs/Day Years [...] got money to buy more. Never True 09/11/2024 Within the past 12 months th e food we bought just didn't last and we didn't have money to get more. Never True 09/11/2024 Estimated Date of Delivery Comme nts Yes 10/09/2024 Based on last me nstrual period of 01/03/2024 Sex and Gender Information Value Date Recorded Sex Assigned at Not on file Legal Sex Female 6:42 PM EDT Gender Identity Not on file Sexual Orientation Not on file documented as of this encounter Last Filed Vital Signs Vital Sign Reading Time Taken Comments Blood Pressure - - Pulse - - Temperature - - Respiratory Rate - - Oxygen Saturation - - Inhaled Oxygen Concentration - - Weight 150.5 kg (331 lb 12.7 oz) 09/11/2024 3:33 PM EDT Height - - Body Mass Index 53.58 07/17/2024 2:16 PM EDT documented in this encounter Patient Instructions * Patient Instructions* Zeynep Sellers RN - 09/11/2024 11:00 AM EDT Daily Schedule - Diet [] GET UP 12 pm [] Check sugar and record 12 pm [] EAT BREAKFAST 1 pm [] Check sugar 1 hour after start of meal and record 2 pm [] Eat morning snack 3 pm - 3:30 pm [] EAT LUNCH 4 pm - 5 pm [] Check sugar 1 hour after start of meal and record 5 pm - 6 pm [] Eat afternoon snack [] EAT DINNER 9 pm [] Check sugar 1 hour after start of meal and record 10 pm [] Eat bedtime snack (HS) 12:30 am BLOOD SUGAR GOALS: Before breakfast: 60-95 1 hours after meals 60-130 PLEASE REPORT BLOOD SUGARS: Over 100 before breakfast Over 130 after meals REMEMBER: EAT EVERY 3- 4 HOURS WHILE AWAKE documented in this encounter Progress Notes * Zeynep Sellers RN - 09/11/2024 11:00 AM EDT DIABETES AND ASSESSMENT Type of diabetes: GDM Age at onset: 23 Duration: this Still : OB History Para Term AB Living 1 0 0 0 0 0 SAB IAB Ectopic Multiple Live Births 0 0 0 0 0 Patient's last menstrual period was 01/03/2024. 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 Rashaad Recinos Name: Dr. Edith Ford Name: City: [facility] City: Last time seen: 08/28/24 Last time seen: Last time seen: Eye Doctor Dentist Other Doctors Name: Name: Name: City: City: City: Last time seen: Last time seen: Last time seen: OB History Para Term AB Living 1 SAB IAB Ectopic Multiple Live Births # Outcome Date GA Lbr Fab/2nd Weight Sex Type Anes PTL Lv 1 Current Allergies Allergen Reactions Sumatriptan Shortness Of Breath Theophylline Hives and Rash Current Outpatient Medications Medication Sig Dispense Refill acetaminophen (TYLENOL EXTRA STRENGTH) 500 mg tablet Take 2 tablets (1,000 mg total) by mouth every6 (six) hours as needed for pain. aspirin 81 mg Take 1 tablet once a day until delivery and then stop 30 tablet 6 ferrous sulfate 325 (65 FE) MG tablet Take 1 tablet (325 mg total) by mouth daily with breakfast. folic acid (FOLVITE) 1 mg tablet Take 1 tablet (1 mg total) by mouth in the morning for 210 days. 30 tablet 6 ondansetron ODT (ZOFRAN ODT) 4 mg disintegrating tablet Dissolve 1 tablet (4 mg total) on tongue every 8 (eight) hours as needed for nausea or vomiting. PNV cmb#95-ferrous fumarate-FA () 28 mg iron- 800 mcg tablet Take 1 tablet by mouth in the morning. metFORMIN XR (GLUCOPHAGE XR) 500 mg 24 hr tablet Take 1 tablet (500 mg total) by mouth daily with breakfast. (Patient not taking: Reported on 04/26/2024) sertraline (ZOLOFT) 100 mg tablet Take 1 tablet (100 mg total) by mouth in the morning. (Patient not taking: Reported on 04/26/2024) No current facility-administered medications for this visit. Previous Hospitalizations None Past Surgical History: Procedure Laterality Date APPENDECTOMY TYMPANOSTOMY TUBE PLACEMENT Personal diabetes history: Gestational Diabetes Unanswered Diabetes mellitus Unanswered Family History of diabetes: pertinent family history includes Diabetes in her father, maternal grandfather, and paternal grandmother. ROS: Constitutional: No problems Head and Neck: Wears glasses or contact lens, Sleep apnea, and Other: Blurry vision - resolves if drinks large amount of water Lungs and breathing: Smoker marijana twice daily) Heart:: No problems Blood disorders and other conditions: Anemia Mental health: Depression/anxiety Kidney, Bladder, and Sexual History: No problems Circulation and Nerves: Swelling Endocrine and Diabetes Conditions: Polycystic ovarian syndrome (PCOS) Stomach and Intestines: Nausea/vomiting and GERD (heartburn) Educational Level: Preferred Methods for Learning: Listening/Verbal directions, Reading, and Watching someome do it first Is there anything about yourculture, jewish, or personal beliefs we need to know about to care for you: Other None Primary Language spoken: Togolese [22] Primary Language for learning: Togolese Are you currently in a relationship where you are physically hurt, threatened or made to fee afraid? [] Yes [] No Powder Truck Driver needed? [] Yes [] No Marital status/Living arrangements [] [] Single [] Partner [] Father of baby [x] Friend [] Parent(s) [x] Other family member [] Self Social History Social History Socioeconomic History Marital status: Single [...] on file Food Insecurity: No Food Insecurity (09/11/2024) Hunger Screening Food Insecurity - Worry: Never True Food Insecurity - Inability: Never True Transportation Needs: Not on file Physical Activity: Not on file Stress: Not on file Social Connections: Not on file Interpersonal Safety: Low Risk (05/31/2024) Received from [facility] Intimate Partner Violence Safe in relationship? (up to 18): Not on file If you are in a relationship, do you feel safe in that relationship?: Yes Housing Instability: Not on file Eating Schedule - What time do you: See Schedule Work day Day off Other (including weekends) Start your day Eat breakfast Eat lunch Eat dinner Eat snacks Go to bed Exercise Everyday Stress Level Stress Scale [x] 1 Low [] 2 [] 3 [] 4 [] 5 High Stress related to: States none Support systems: My Mom Comfort Level Are you currently experiencing any pain? [] Yes [x]No If yes, where: On thge following scale, [place] the number, which describes your current level of pain. [] 0 [] 1 [] 2 [] 3 [] 4 [] 5 [] 6 [] 7 [] 8 [] 9 [] 10 No Pain Worst Pain Possible How long does the pain last?: What do you do to help the pain go away? PLEASE COMPLETE THE FOLLOWING QUESTIONS - IF YOU HAVE DIABETES NOW OR HAVE HAD WITH A PREVIOUS HAVE YOU HAD ANY OF THE FOLLOWING SYMPTOMS OF LOW BLOOD SUGARS - Denies Shaky [] Yes [] No Irritability [] Yes [] No Heart Palpitations [] Yes [] No Nervousness [] Yes [] No Cold sweats [] Yes [] No Headache [] Yes [] No Passed out [] Yes [] No Dizzy [] Yes [] No Confusion [] Yes [] No Seizures [] Yes [] No What do you use to treat your low blood sugars? Diabetes Testing and Medication Use Yes No Do you currently use a glucose testing meter? If yes, how often do you test? Sporadic - 4 times daily [x] [] Did you take insulin during any of these previous pregnancies? [] [x] Have your insulin reactions (low blood sugars) changed in any way recently? N/A If yes, please describe how they have changed. [] [] Have you ever received any diabetic education? If yes, where and when: [] [x] Patient and mother present for Diabetes Education. Given schedule to spread meals and snacks out throughout the day. Reported all BG numbers checked at home within recommended target except 1 PP (Taco Daigle) 146. No glucometer or BG log brought to appointment. Random BG-96 09/11/24. Recently diagnosed with GDM; managed blood sugars with diet and physical activity. Reported family history of diabetes. Discussed complications for mom and baby related to GDM. Referred to Diabetes Self-Management Support Plan in folder. Discussed plan to check blood sugar four times daily, fasting and 1 hour after meals including sending them to [email or web address] weekly on Monday night/Monday and being active 30 minutes most days of the week with logging this on BG log weekly. Noted will contact weekly regarding BG log being reviewed and instructions/recommendations. Face to face time 40 minutes. . * Ivon Otero RD - 09/11/2024 11:00 AM EDT Nutritional Assessment Form Date: 09/11/2024 DORON: Estimated Date of Delivery: 10/09/24 EGA: 36w0d Past Medical History: Diagnosis Date BMI 45.0-49.9, adult ([facility]) Irregular periods Oligomenorrhea PCOS (polycystic ovarian syndrome) OB History 1 Para Term AB Living SAB IAB Ectopic Multiple Live Births Current Outpatient Medications Medication Sig Dispense Refill acetaminophen (TYLENOL EXTRA STRENGTH) 500 mg tablet Take 2 tablets (1,000 mg total) by mouth every6 (six) hours as needed for pain. aspirin 81 mg Take 1 tablet once a day until delivery and then stop 30 tablet 6 ferrous sulfate 325 (65 FE) MG tablet Take 1 tablet (325 mg total) by mouth daily with breakfast. folic acid (FOLVITE) 1 mg tablet Take 1 tablet (1 mg total) by mouth in the morning for 210 days. 30 tablet 6 ondansetron ODT (ZOFRAN ODT) 4 mg disintegrating tablet Dissolve 1 tablet (4 mg total) on tongue every 8 (eight) hours as needed for nausea or vomiting. PNV cmb#95-ferrous fumarate-FA () 28 mg iron- 800 mcg tablet Take 1 tablet by mouth in the morning. metFORMIN XR (GLUCOPHAGE XR) 500 mg 24 hr tablet Take 1 tablet (500 mg total) by mouth daily with breakfast. (Patient not taking: Reported on 04/26/2024) sertraline (ZOLOFT) 100 mg tablet Take 1 tablet (100 mg total) by mouth in the morning. (Patient not taking: Reported on 04/26/2024) No current facility-administered medications for this visit. Present MNT Therapy: regular Insulin Therapy: Date started: Anthropometric Data: Height: Ht Readings from Last 1 Encounters: 07/17/24 167.6 cm (5' 5.98 ) Pre- Wt: Pregravid weight not on file Pre- BMI: Could not be calculated Current BMI: Body mass index is 53.58 kg/m??. Pre Wt. Category: obese Current Weight: Wt Readings from Last 1 Encounters: 09/11/24 (!) 150.5 kg (331 lb 12.7 oz) Weight Gain Goals: 25-42# Lab Data: BP BP Readings from Last 1 Encounters: 07/17/24 108/72 Hgb Hct OGCT OGTT HgA1C SMBG: Frequency : Testing Times: Glucose meter: Records Kept? [] Yes [] No Lifestyle Factors: Occupation of the mother: Substance Abuse: Living Conditions Hours worked per week FMLA - Maternity Leave Educational Level High School Family issues stable Cultural/ethnic/synagogue influences denies Exercise approved by MD? Yes Current Exercise program walking Who prepares the meal pt Who purchase food at your home? pt Equipment use for cooking/food storage has all Food Assistance(Ex.WIC, Food [place]) has already Dining out Yes couple times per week Appetite/Appetite changes no change Weight History stable Do you have cats at home? Feeding Plans Breast Feeding If you have cats, who cleans the litter box? Cravings/Aversions/Pica none Nutrition Assessment Worksheet: Week/Weekend Food Recall Breakfast Something 1-2 hours after waking up Snack Lunch [place] Snack Fruit or Hot cheetos and cream cheese Dinner Botswanan food Rice Onion green pepper Steak Water and pepsi 1-2 times per day Snack sometimes Snack Time Rosemary Fulton presents for diet instruction per doctor order secondary to diagnosis of gestational diabetes. Noted history of PCOS. Food recall suggests patient typically consumes a diet of mainly convenience foods. Pt has gained 52# to date. Based on patient's stated pre- weight, weight gain goal is 25-42#. Nutrition diagnosis: inconsistent and excessive carbohydrate intake related to lack of nutrition knowledge as evidenced by patient's food recall. Given that she only has a weekuntil delivery, instructed in no concentrated sweets meal plan, encouraging her for focus on makingmost of her meals nonstarchy veggies, proteins, and healthy fats. Provided patient with 2400 kcal meal plan of 3 meals and 3 snacks, discussing how this can help improve her health even after delivery to help reduce her risk of diabetes later in life. Discussed foods rich in iron and calcium. Encouraged patient to limit dining out. Reviewed exercise guidelines with patient given provider approval. Please refer to health habits for other goals. Patient understands that we will follow up weekly with a phone call to review progress. Face to face time 20 minutes. documented in this encounter Plan of Treatment Not on file documented as of this encounter Visit Diagnoses Diagnosis Monochorionic 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 Gestational diabetes mellitus (GDM) in third trimester, gestational diabetes method of control unspecified documented in this encounter
[2024-09-16] VITALS (45 sets, daily range): BP systolic 110–157; BP diastolic 65–93; PULSE 68–90; TEMP 36.2–36.6; O2SAT 96–98
--- OUTSIDE RECORDS SUMMARY | 2024-09-16 05:57 | XMS_ITS | CCD ---
Author Organization [facility] Care Team Providers Care Bike Mechanic Name Role Phone Edith Ford Primary Care Provider [phone] Edith Ford Primary Care Physician Maggie Alex [...] Unavailable Primary Care Provider Unavailabl e Jorje D.OShamar, Dhruv R. Primary Care Provider [phone] NICHOLE HYDE Attending Unavailable AYAH BENTON Referring [...] Unavailable DOCHEVA, NIKOLINA P Attending Unavailable VANCE, TALAY L Referring Unavailable JORJE, DHRUV R Referring [...] Referring Unavailable JORJE, DHRUV R Referring Unavailable IVON OTERO Attending Unavailable JORJE, DHRUV R Referring Unavailable JORJE, DHRUV Attending Unavailable VANCE, TALYA Attending Unavailable JORJE, DHRUV Attending Unavailable VANCE, TALYA Attending Unavailable JORJE, DHRUV Attending Unavailable VANCE, TALYA Attending Unavailable JORJE, DHRUV Attending Unavailable JORJE, DHRUV Attending Unavailable Allergies Allergy Classification Reported Allergen(s) Allergy Type Date of Onset Reaction(s) Facility Theophylline (1 source) Theophylline Drug Allergy 1 [facility] (20 sources) SUMAtriptan; Translations: [sumatriptan] Drug Allergy 7 Pharyngeal swelling (finding), Shortness of breath [facility] (18 sources) Theophylline; Translations: [theophylline] Drug Allergy 5 Hives, Rash [facility] (1 source) Theophylline Drug Allergy 9 [facility] Repository (20 sources) Theophyllines; Translations: [THEOPHYLLINES] Drug Intolerance 1 Hives, Rash [facility] (1 source) SUMAtriptan; Translations: [SUMATRIPTAN SUCCINATE] Drug Allergy 7 [facility] Repository (1 source) Theophylline Drug Allergy 1 [facility] Repository Medications Current Medications Medication Drug [...] antepartum, gestational diabetes method of control unspecified ([facility]) , Elevated glucose tolerance test 1 kit [...] antepartum, gestational diabetes method of control unspecified ([facility]) , Elevated glucose tolerance test Apply 1 [...] 30 capsule 6 08/21/2024 09/20/2024 Active Vit w/Co-Eyjwigfaf-FZ (PNV PO) (1 source) Vit w/Ju-Qyayzudni-LT (PNV PO) Take by mouth. Active Vit-Fe Fumarate-FA ( Vitamins) 28-0.8 MG tablet (19 sources) Start: 03-08-2024 End: 03-08-2025 take 1 tablet by mouth once daily Vit-Fe Fumarate-FA ( Vitamins) 28-0.8 MG tablet Indications: , unspecified gestational age ([facility]) , Encounter for supervision of normal first in first trimester ([facility]) Take 1 tablet by mouth Daily 30 [...] tolerance complicating ; childbirth; or the puerperium (4 sources) Gestational diabetes mellitus; Translations: [Gestational diabetes mellitus in , unspecified control] Onset: 09-11-2024 08-29-2024 Episodic E Codes: Natural/environment (1 source) [...] tic Twins] Onset: 05-31-2024 Unclassified (1 source) Gestational Diabetes Onset: 09-11-2024 Unclassified (1 source) mono-di twins Onset: 04-26-2024 Past or Other Problems Problem Classification Problem Date Documented Da te Episodic/Chronic Conditions associated with dizziness or vertigo (1 source) Dizziness and giddiness; Translations: [DIZZINESS AND GIDDINESS] Onset: 12-01-2021 Episodic Other aftercare (1 source) Other nursing home (current) drug therapy; Translations: [OTH [facility] CURRENT DRUG THERAPY] Onset: 01-24-2022 Episodic Other aftercare (1 source) 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; Translations: [...] 08-28-2024 GLUCOSE TOLERANCE 3 HOUR High mg/dL [facility] Comment on above: GLU FAST 95H [...] UA Negative Negative - 1999(110) ++++ mg/dL [facility] Healthcare Interpretation and review of laboratory results [...] UA Negative Negative - 4(70) +++ mg/dL [facility] Healthcare Blood, UA Negative Negative - 50 Duane/mcL [facility] Clarity, UA Clear [facility] Color, UA Yellow [facility] Glucose, UA Negative Negative - 1999(110) ++++ mg/dL [facility] Healthcare Interpretation and review of laboratory results [...] bacterial skin contaminants 2 Days PERFORMED BY: [address] [address] PATHOLOGIST TELE TECH FRANCIA GÓMEZ M.D. Normal [facility] Comment on above: Performed By: #### C UU #### [facility] [address] [id number] [facility] GLUCOSE 1 HOURon 07-16-2024 Glucose [Mass/Vol] 157 mg/dL High NINF - 13 0 mg/dL [facility] Interpretation and review of laboratory results Abnormal [facility] Urinalysis macro (dipstick) panel (U)on 06-26-2024 Bilirubin, UA Negative Negative - 4(70) +++ mg/dL [facility] Blood, UA Negative Negative - 50 Duane/mcL [facility] Healthcare Clarity, UA Clear [facility] Color, UA Yellow [facility] Glucose, UA Negative Negative - 1999(110) ++++ mg/dL [facility] Interpretation and review of laboratory results Abnormal [facility] Ketones, UA Negative Negative - 160(16) ++++ mg/dL [facility] Leukocytes, UA Trace Negative - 500+++ Belinda/mcL [facility] Nitrite, UA Negative Negative - Positive [facility] pH, UA 7.5 5 - 9 [facility] Protein, UA Negative Negative - 1999(20) ++++ mg/dL [facility] Healthcare Spec Grav, UA 1.02 1 - 1.03 [facility] Urobilinogen, UA 0.2 0.2 - 12 mg/dL [facility] ECHOCARDIOGRAM FETALon 05-31 ECHOCARDIOGRAM [facility] [address] [place] [id number] ECHOCARDIOGRAM REPORT Name: JUAN DIEGO FULTON : 2000 ALT. ID: Age: 23 years Study Date: 05/31/2024 12:45:12 PM Patient Class: Outpatient Patient Location: [employer] Referring Physician: [facility] Diagnosing Physician: [id number] Meenu Reed MD Freight Associate: Marita Ko [facility] Procedure type: Complete 2D-[id number], Complete Doppler and Spectral Doppler-90547, Color Doppler-30743, Umbilical Doppler-69752 and Multiple Gestation (Twins). Reason for test: [...] and Pulm (more content not included)... Normal [facility] Urinalysis macro (dipstick) panel (U)on 04-09-2024 Bilirubin, UA Negative Negative - 4(70) +++ mg/dL [facility] Blood, UA Negative Negative - 50 Duane/mcL [facility] Clarity, UA Clear [facility] Healthca re Color, UA Yellow [facility] Glucose, UA Negative Negative - 1999(110) ++++ mg/dL [facility] Interpretation and review of laboratory results Abnormal [facility] Ketones, UA Negative Negative - 160(16) ++++ mg/dL [facility] Leukocytes, UA Positive Negative - 500+++ Belinda/mcL [facility] Comment on above: large Nitrite, UA Negative Negative - Positive [facility] pH, UA 7 5 - 9 [facility] e Protein, UA Trace Negative - 1999(20) ++++ mg/dL [facility] Spec Grav, UA 1.02 1 - 1.03 [facility] Urobilinogen, UA 0.2 0.2 - 12 mg/dL [facility] ALL CBC WITH AUTO DIFFon BASOPHILS ABSOLUTE AUTO 0 [facility] Basophils/100 WBC (Bld) 0.3 % 0.2 - 2.0 % [facility] Eosinophils/100 WBC (Bld) 0.9 % 0.9 - 7.0 % [facility] Erythrocyte distribution width (RBC) [Ratio] 14.1 % 11.0 - 15.0 % [facility] IMMATURE GRANULOCYTES ABS AUTO 0.05 High [facility] Immature granulocytes/100 WBC (Bld) 0.4 % 0.0 - 0.5 % [facility] Interpretation and review of laboratory results Abnormal [facility] LYMPHOCYTES ABSOLUTE AUTO 2.6 [facility] Lymphocytes/100 WBC (Bld) 18.5 % Low 20.5 - 60.0 % [facility] MCH (RBC) [Entitic mass] 25.9 pg Low 26.7 - 34.0 pg [facility] MCHC (RBC) [Mass/Vol] 32.7 g/dL 29.9 - 35.2 g/dL [facility] MCV (RBC) [Entitic vol] 79.2 fL Low 81.0 - 99.0 fL [facility] MONOCYTES ABSOLUTE AUTO 0.6 [facility] Monocytes/100 WBC (Bld) 4 % 1.7 - 12.0 % [facility] NEUTROPHILS ABSOLUTE AUTO 10.7 High [facility] Neutrophils/100 WBC (Bld) 75.9 % High 43.0 - 75.0 % [facility] Platelet mean volume (Bld) [Entitic vol] 11.7 fL 9.5 - 13.5 fL [facility] TBH EO # 0.1 [facility] TB PLT 302 [facility] TB RBC 4.56 [facility] TB WBC 14.1 High [facility] CBC without diffon Rbc Mcv (Fl) By Automated Count 79.2 [facility] - Hematology and Cell countson 03-15-2024 Hematocrit (Bld) [Volume fraction] 36.1 % [facility] Hemoglobin (Bld) [Mass/Vol] 11.8 g/dL [facility] No Panel Informationon 03-15 [facility] Rubella IGG immune statuson 03-15-[address]ella [address] IgG [address].9 [facility] Syphilis Total(Unknown Syphi lis Status)on 03-15-2024 Syphilis Non-Reactive [facility] Type and screenon 03-15-2024 Abo/Rh(D) Negative [facility] HCG ( test) Ql (U)o n 03-08-2024 Interpretation and review of laboratory results Abnormal [facility] Preg Test, Ur Positive Negative [facility] Urinalysis macro (dipstick) panel (U)on 03-08-2024 Bilirubin, UA Negative Negative - 4(70) +++ mg/dL [facility] Blood, UA Negative Negative - 50 Duane/mcL [facility] Clarity, UA Clear [facility] Color, UA Yellow [facility] e Glucose, UA Negative Negative - 2000(110) ++++ mg/dL [facility] Interpretation and review of laboratory results Abnormal [facility] Ketones, UA Negative Negative - 160(16) ++++ mg/dL [facility] Leukocytes, UA Moderate Negative - 500+++ Belinda/mcL [facility] Nitrite, UA Negative Negative - Positive [facility] pH, UA 7 5 - 9 [facility] e Protein, UA Negative Negative - 2000(20) ++++ mg/dL [facility] Spec Grav, UA 1.015 1 - 1.03 [facility] Urobilinogen, UA 0.2 0.2 - 12 mg/dL [facility] Referrals Officeon 3 Referrals Office [id number] 0 [id number]# 1.00CD:127 Normal [facility] CULTURE URINEon 03-13-2022 CULTURE URINE Culture Observations : HEAVY GROWTH OF MIXED GENITAL TING. NO POTENTIAL PATHOGENS SEEN. Normal [facility] Comment on above: Performed By: #### C MP #### [facility] [address] [place] [address] Dr. Paz Burk ER URINE PROFILEon 3 Bilirubin Ql (U) Negative Normal NEGATIVE [facility] Comment on above: Performed By: #### P PEGGY HERNANDEZ ERUR #### [facility] [address] [place] [address] Dr. Paz Burk Clarity (U) CLEAR Normal CLEAR [facility] Comment on above: Performed By: #### P PEGGY HERNANDEZ ERUR #### [facility] [address] [place] [address] Dr. Paz Burk Color (U) LT. YELLOW Normal YELLOW [facility] Comment on above: Performed By: #### P PEGGY HERNANDEZ ERUR #### [facility] [address] [place] [address] Dr. Paz POST A micrscopic examination will be performed if indicated. Normal [facility] Comment on above: Performed By: #### P PEGGY HERNANDEZ, ERUR #### [facility] [address] [place] [address] Dr. Paz Burk Glucose Ql (U) Negative Normal NEGATIVE [facility] Comment on above: Performed By: #### P REGU, UMICRO, ERUR #### [facility] [address] [address] [address] Paz Burk Hemoglobin Ql (U) Negative Normal NEGATIVE [facility] Comment on above: Performed By: #### P REGU, UMICRO, ERUR #### [facility] [address] [address] [address] Paz Burk Ketones Ql (U) Negative Normal NEGATIVE [facility] Comment on above: Performed By: #### P REGU, UMICRO, ERUR #### [facility] [address] [place] [address] Dr. Paz Burk LEUKOCYTES MODERATE Abnormal NEGATIVE [facility] Comment on above: Performed By: #### P REGU, UMICRO, ERUR #### [facility] [address] [address] [address] Paz Burk Nitrite Ql (U) Negative Normal NEGATIVE [facility] Comment on above: Performed By: #### P REGU, UMICRO, ERUR #### [facility] [address] [address] [address] Paz Burk pH (U) 6.0 [pH] Normal 5-9 [facility] Comment on above: Performed By: #### P REGU, UMICRO, ERUR #### [facility] [address] [address] [address] Paz Burk SPEC GRAVITY 1.025 Normal 1.005-<=1.025 [facility] Comment on above: Performed By: #### P REGU, UMICRO, ERUR #### [facility] [address] [address] [address] Paz Burk UA PROTEIN Negative Normal NEGATIVE/ TRACE [facility] Comment on above: Performed By: #### P REGU, UMICRO, ERUR #### [facility] [address] [address] [address] Paz Burk UR MICRO IND INDICATED Normal [facility] Comment on above: Performed By: #### P REGUVERONICAICRO, ERUR #### [facility] [address] [address] [address] Paz Burk Urobilinogen Qn (U) 0.2 {Ara'U}/dL Normal 0.2 - 1. 0 [facility] Comment on above: Performed By: #### P REGVERONICA PhamICRO, ERUR #### [facility] [address] [address] [address] Paz Burk URon 03-13-2022 , QUAL Negative Normal NEGATIVE [facility] Comment on above: Performed By: #### P VERONICA HERNANDEZICRO, ERUR #### [facility] [address] [place] [address] Dr. Paz Burk URINE MICROSCOPIC ONLYon BACTERIA MODERATE Abnormal NONE SEEN [facility] Comment on above: Performed By: #### P REGVERONICA PhamICRO, ERUR #### [facility] [address] [place] [address] Dr. Paz Burk Bacteria identified Cx Nom (U) INDICATED Normal [facility] Comment on above: Performed By: #### P PEGGY HERNANDEZ, ERUR #### [facility] [address] [place] [address] Dr. Paz Burk CAST NONE SEEN Normal NONE SEEN [facility] Comment on above: Performed By: #### P BREANA HERNANDEZRO, ERUR #### [facility] [address] [address] [address] Paz Burk Crystals LM Nom (Urine sed) NONE SEEN Normal NONE SEEN [facility] Comment on above: Performed By: #### P REGU UMICRO, ERUR #### [facility] [address] [place] [address] Dr. Paz Burk Epithelial cells LM Ql (Urine sed) MODERATE Abnormal NONE SEEN /RARE [facility] Comment on above: Performed By: #### P REGU UMICRO, ERUR #### [facility] [address] [place] [address] Dr. Paz Burk MUCOUS TRACE Abnormal NONE SEEN The [facility] Comment on above: Performed By: #### P PEGGY HERNANDEZ, ERUR #### [facility] [address] [address] [address] Paz Burk RBC 0-2 Normal 0-2 [facility] Comment on above: Performed By: #### P PEGGY HERNANDEZ, ERUR #### [facility] [address] [address] [address] Paz Burk WBC 50-75 Abnormal NONE SEEN The [facility] Comment on above: Performed By: #### P PEGGY HERNANDEZ, ERUR #### [facility] [address] [address] [address] Paz Burk Coding Summary.on 03-04-2022 Coding Summary. [id number] G h0bWw+PGhlYWQ+GR0BVDV iF49vzXQgzR6WA7kGUC6X ANZNALCGHE8DRB1lnRL0I EnvC6RpwrUh ZhoeiUQaVA98JZi4VSV7w DyxJNnbhF2ycNAoL7l3El EiJV15jI11CNdfIEFlQxR 3LjZpbjsgbWFy C1hrGfDscULeSse+PHRhY mxlIHdpZHRoPScxMDAlJy HdoHxdIK7mJa7oTXBaHGL vbGxhcHNlOiBj t5sfEEHhZGjeAT6onXdoK 1HxsXY7BXIpk8s0Jg97gA I+RRWhOTQ4jFxzFXwdp61 6AkLag0ubFHJ1 eRHlTEguYAJ0J66rj8B7H LXhHLGwMXS0rFS4cY1wtG omixvaB2BueWEbXpO6POY 0oZLpuD9sjDyl ygtpoY6xMgp+G25ASI6NY ZWXWD6HJvc2H0MlNphdyU I+ZV01KDZjTF33oJHctIM kx8nolCt9DsNo QYOqULR1oZkdERode2AdM UDyO20coMLaj4D6JDAypG sxkHLpMiMacYK6uC2vPDf lfeupk4tizlol Etgiv7dgsr92aI52V35cL HciJDTeIUT3SLHeLBJgeT fnfj2saI1tJe9+HPnnl2l ga1zqlFz5ZdHp CCLecqYptAxsTBY3n8IkM o60E1PjxQzti1CiOso2ww 63aSWyk0W6wLG4NSboVLY ukO8hGSnlPxH5 CATnFkZghE10sOVcSHxgC k8rnTkyfEkbXD3tBPAxta joLVYpsA8pWIXzoFGsjYj lGS1yCXZdimpe c304VaIkLEV9RWQddCWhO 9QrrN2aQpFaMXFuPANwR3 ZiiQUhCZgsQ037OXrzJsY 3HTVszuHlB7Ms PRHeqPjjExU5x3V3Pm6Ml 1PzmfxtPCW1GSdvJJJnGx Z5WcCiLcV2Y2BeVtg7MIF ceOwhUI8cU3Bf TOOgblbvzyohaVN6KRSxA CUhuZ66pIUtUXloRh3ex2 P2i603VGIjEDYpzP34Ki0 udDogMTBwdCBU eE8aklpdy9atdsrjXmRkB OMaYNu7VOe5YUCziWvlFg QpGGA0DsW5SUD2gWIvuS2 gcIpjqddrnR5b Oyc+V02ouU9oGZJ3XIQ0o srcQDYhitOgOD27XD93U2 RyPjwvdGFibGU+PGRpdiB mgBoxXW1mPnSu a6tif8ZhPUnuB5YhVUUzL QyaAxp3MIIvLGD2kUL2hX 8gIDVjTLgln1F6yUV4B3E urcYurc2ox4vv TSQqOPsvT95dcTXbf4I4Z FWbpJH8YMVktNjrRvUxzR 93Oyc+OXHknSdxl6UyRox bl9enu8wqyCv4 YrEhLMYeelEfnDzxYPV3w 8CpKr32W73yHYvbBDLqVW BhAWYrDTSjwQgiou4bbE8 wIi8+PGNvbCB3 jHY1lI5rPZQsWsO0JHlwG 713NvDiwNChDpppy4vna0 fhvSu8PqKwSTLkzwMlkDv pJWD3w8KpBs83 X70sEKxyTLCeOWJuGYDvN QDxkGhbnh0gyM1eBt8+PC 0qg2fcen55wL68sMZ+PHR kTJG9dJpbOGcb EVVfeZ3oMLqlJhV4OWOcP yRlhH64wEPfCEwqVr3uqI qnrGiiFB3gJFKnnplwf38 2LgBno5cpZZHr bXCcKVddFRO7H62iw1V9V DMsEUWiASO1uUT8jI0olW lnbjogbGVmdDsgdmVydGl mMFqxDXbcU306 IHRvcDsnPlBhdGllbnQgT iRmOIy0V9FiIja8IAIxvE yfHQ6ylHXjVCocJh6rgOx ifNbjRZ2gWKSf rnnhd608FpLbt2yoOPLms RGqXZniECM9V28rj3C3OL MkLDTrOLK2vIP2rU6gyRp nbjogbGVmdDsg kcIbxPhmEJoyWGvmK772W HRvcDsnPkJpcnRoIERhdG B3PQ00UQ75aCDsx6L0fAQ 6V7TwZZXyoryu laiqjMA2UGJrEXQkuN69D s0gpBblVa6yTPUfLSK6XK KrzRTwF2AqlR7iJzSqSDK nUOMtQ2YkcBLn PCblY049POdmFsB3NLXtz jObE0HpMNAlmTvpFeZ4k9 Y5Ht5GE7H8KC35DC27fGL oj3U0xTJ4W8Xs QEMujkxyiqtmrEL2PRSiZ BApgR20Tv6vrJnhPs8eBB OxSXS5UYNouVSmO8PtgN4 yOiAjMDAwMDAw D3HbwXBdCYimR911HEcxL hP8JBUipcFhH2OgMTRpaG msLuT1v0H0Yy5PREq0VJ5 9MA66zPCch1B7 zAF9W8QgUQEwsccysvkjy SG6XPHiZENraO62He0xtJ dxTo9fXALmQKE0CIAonNX sT8UukT1lDbGi YGLfTAWjP5PvgUPyPKngU 781HGmoRzE2VBYdijSdK8 MvTYGbmQhcFcD0z6V5Ke2 JSNUlFD07PST5 pCZ2VD88MA18J2WjAmbxn GFibGU+PHRhYmxlIHdpZH RoPScxMDAlJyBzdHlsZT0 jYd0jFGRyWWKw mPoieGRjTgNor4rqGFNnT JeaMA0vmDteH6UpkRM5BL Tgn1j6Me43V45vR5QfmUW +MIKzaAU3dUI1 tA7dUsSlGyU9JCvmL353M kBqzMNaBhfgn8gkz4jlzX r2UzZ1VJIrcjNhdEtbNBO 9w2MyHg24G34e IHdpZHRoPSIxNSUiIHZhb Imxnr1rhN5sOj4+PGNvbC U0dXS2rE0jWsTwUkL7WMl xB394InTieMMr Fpztn0nmv3rzvFf9YcGoL CYjenKwiSfrAIG2k1RiZv 47P0QtzDfle3WuMmw3am6 0aDTnd8D7dTA7 J0JpBZAkkyxoeLPliUhqS N9eALNuppjeATLcxA4iQG QfJ7p4HdJbUpH8JEvoU3Z jqjH8ALKdfDAo TAvkKYO9T69bp2C7FMSeF IUiMTK6hVQ6iX4ikXqpfw ogbGVmdDsgdmVydGljYWw xTZfgF971KHKz yItvTQMbwL6wUZRoyVItx VdzWR9eFHGafwqdXcRCFC 5uDPyOXw5OHzCtTgqwaKC +LEAnCIJ8cBpk BGayQUBzcM4dOTEqG3r9K wKuWqR1SPkvG0YgCOIvht yoJo21sV3xXkMpUrT1EBx fF3MkdcW9WENi iXXjLDvkUCT3O60yx8Z4Q QFrIGZiNCV3iLV1nM6fbN lnbjogbGVmdDsgdmVydGl qKNzlLPtnM374 YXWdtHddKzI8SsG7LhW9N Ca3P9QyWvw7QTMwfZxeNU 5srTYoALhxOc4qjFpjePq oJI4oRIBnjbjb FPSikE9iUHCqcFTvoKirZ G6yDGZtscxep972JkJoKM Z8OSSubFJsP7NhlJ1oUjT vUNFtTRRlR6Iz eBTjPKjfV402MJlaHfH8W UFyuiImP1NsWZDpuPtwYn B9f8D6Ce4aTuRHYRWaafr vdGQ+PHRkIHN0 tYaxTWhoKGYxfI8tXCVhT 7s9OpUpFzR9BWtjM7PeRP OcmgyeZp99oX6tTaKfFaY 9UVqgR1QijeW2 TUUqfSZtNCruSNW6V46ug 9B6RLRkWPPqGOG5aNX0vG 1hbGlnbjogbGVmdDsgdmV ydGljYWwtYWxp I447WTRhmQdvXmYuuPFhS TwvdGQ+QMFzXJA2oTyaXE maEWMvyP6lOEHnD7x1LlY oKyW7XHtaC9Zr QJLdicoeFv09aZ3gTzJrG hC4OBtvI3RmvoA7PCWfaV TmWXhzUSX8C94wp5W1NZI dFLLuHDC3mOK2 nB5uzVdcdysbsENvnWknm zWblWapRSdvWItxH427YA DtmXonZl95iKIdtHkmshZ 7S7LfEgoccJX+ IL91BJEqQS89gNVyeUCqr 4gidIj5OsPyMUYaRJL9eY frGXwth0WiYXUvW31stLN fu0W0EZJmbIpv sTSzHpEgxKD6kH6tJSqhz fsmt5clswlbMvhzn8tmmf 16aQ10E48lVIosCJElFTB zMCUiIHZhbGln qv5yzY8qXt2+LUBspJB4m WV3tH3uBlFoPwN4JBnmU2 69NdLnbAYjKtjpa0mfy1b icXs7SzNgZKNa rvOeaQmoPJJ6l7UxNl58V 29sIHdpZHRoPSIyMCUiIH EupLcwii9cbR0tXo7+PC9 un1tnmi77iF12 dHI+UYIhLJQ4pNeyTEfgS EPebL2zQPotGjY4TRSePg PljJ03jTInKJefIb3arCw djObiGC1pQNIz deryp259SfGvh6eyAHOni UVgRCzkPBY2S50is9M6TU XuOLSkTJV2xMO5jK5foQb nbjogbGVmdDsg cyBrmFytMFmgUPpcV510W MNwhVdnCjUflOQgX9ucfa HHOX0rLslyqHM+PHRkIHN 0eWxlPSdwYWRk kQ5dWZPbS6j0AwOtFaT4I FwcR6JcqrL7OPZbsMQnST ZsiGGFvO2mwbloz9gpoud gIzAwMDAwMDt0 DSk6XTTzcIbaCuSvSXF2Z eZ9AEG0kMFvuH7iuXcsyj mopR5iZwo+RklOOjwvdGQ +NOUuKRA3vFkj TTwvPTWabW3lAKFuS9l2U xHoVmA9VOtsM5HqpeB9UN BylJEdZASocIRGhZ3kqbl xl3cxeyftDcRq VWOpHYz1HVn7WXXqsMuaF uTqEDV8DpL6BIG9qSCxiQ 1ogAqnghiugY8iAkj+TVJ OOjwvdGQ+PHRk YJV9hQfcRNkqITHobH7jR ZEmC2p7EgBnHdK5CFpiR7 BwooJ6JWXmaSErIRIbuYU UoV6eofyik8ln nmtjSwAzORLrMGz2IBn8K VRlpWxnHzOiFHJ5NpC7PL B5qCPyoP5dkFerwcqlsP3 wOyc+DFT1SLG7 MH56NC20D6VgAosdsZBhq +PHRhYmxlIHdpZHRoPS foIONvRdJmfKqcMP6zAg2 yZGVyLWNvbGxh cHNl (more content not included)... Normal [facility] Consent for Treatmenton Consent for Treatment [id number]:127 Normal [facility] Covid[facility]19 [facility]28 SARS-CoV-2 (COVID-19) RNA IGNACIO+probe Ql (Unsp spec) Not detected Normal NOT DETECTED [facility] Comment on above: Result Comment: This test is not yet approved or cleared by the [place] FDA. When there are no FDA-approved or cleared tests available, and other criteria are met, FDA can make tests available under an emergency access mechanism called an Emergency Use Authorization (EUA). The EUA for this test is supported by the Inpatient Nursing Aide of Health and Human Service's (HHS's) declaration [...] SARS-CoV-2. Performed By: #### C VDTB #### [facility] [address] [place] [address] Dr. Paz Burk INFLUENZA A AND B [facility] 02-23 [facility] Normal [facility] Comment on above: Result Comment: Nega tive for Flu A protein angiten. Infection due to Flu A cannot be ruled out. Flu A angiten in the sample may be below the detection limit of the test. Performed By: #### I NFLUAB #### [facility] [address] [place] [address] Dr. [facility] Normal [facility] Comment on above: Result Comment: Nega tive for Flu B protein antigen. Infection due to Flu B cannot be ruled out. Flu B antigen in the sample may be below the detection limit of the test. Performed By: #### I NFLUAB #### [facility] [address] [place] [address] Dr. Paz Burk INFLUENZA A AG Negative Normal NEGATIVE SEE COMMENT [facility] Comment on above: Performed By: #### I NFLUAB #### [facility] [address] [place] [address] Dr. Paz Burk INFLUENZA B AG Negative Normal NEGATIVE SEE COMMENT [facility] Comment on above: Performed By: #### I NFLUAB #### [facility] [address] [place] [address] Dr. Paz Burk Physician Orderon 02-14-2022 Physician Order [id number] Normal [facility] BNPon 01-20-2022 Natriuretic peptide B (Bld) [Mass/Vol] 125.0 pg/mL Normal <=450.0 [facility] Comment on above: Performed By: #### C VDTBH #### [facility] [address] [place] [address] Dr. Paz Burk CBC AUTO DIFFon 01-20-2022 BASO # 0.0 103/ul Normal 0.0-0.1 [facility] Comment on above: Performed By: #### C BC #### [facility] [address] [place] [address] Dr. Paz Burk Basophils/100 WBC (Bld) 0.2 % Normal 0.2-2.0 [facility] Comment on above: Performed By: #### C BC #### [facility] [address] [place] [address] Dr. Paz Burk EO # 0.2 103/ul Normal 0.0-0.7 [facility] Comment on above: Performed By: #### C BC #### [facility] [address] [place] [address] Dr. Paz Burk Eosinophils/100 WBC (Bld) 1.2 % Normal 0.9-7.0 [facility] Comment on above: Performed By: #### C BC #### [facility] [address] [place] [address] Dr. Paz Burk Erythrocyte distribution width (RBC) [Ratio] 14.4 % Normal 11.0-15.0 [facility] Comment on above: Performed By: #### C BC #### [facility] [address] [place] [address] Dr. Paz Burk Hematocrit (Bld) [Volume fraction] 37.3 % Normal 36.0-48.0 [facility] Comment on above: Performed By: #### C BC #### [facility] [address] [place] [address] Dr. Paz Burk Hemoglobin (Bld) [Mass/Vol] 12.3 g/dL Normal 12.0-16.0 [facility] Comment on above: Performed By: #### C BC #### [facility] [address] [place] [address] Dr. Paz Burk IG # 0.07 10e3/ul Critically high 0.00-0.03 [facility] Comment on above: Performed By: #### C BC #### [facility] [address] [place] [address] Dr. Paz Burk IG % 0.5 % Normal 0.0-0.5 [facility] Comment on above: Performed By: #### C BC #### [facility] [address] [place] [address] Dr. Paz Burk LYMPH # 3.0 103/ul Normal 1.2-3.8 [facility] Comment on above: Performed By: #### C BC #### [facility] [address] [place] [address] Dr. Paz Burk Lymphocytes/100 WBC (Bld) 21.2 % Normal 20.5-60.0 [facility] Comment on above: Performed By: #### C BC #### [facility] [address] [place] [address] Dr. Paz Burk MANUAL DIFF REQ NO Normal [facility] Comment on above: Performed By: #### C BC #### [facility] [address] [place] [address] Dr. Paz Burk MCH (RBC) [Entitic mass] 26.8 pg Normal 26.7-34.0 [facility] Comment on above: Performed By: #### C BC #### [facility] [address] [place] [address] Dr. Paz Burk MCHC (RBC) [Mass/Vol] 33.0 g/dL Normal 29.9-35.2 [facility] Comment on above: Performed By: #### C BC #### [facility] [address] [place] [address] Dr. Paz Burk MCV (RBC) [Entitic vol] 81.3 fL Normal 81.0-99.0 [facility] Comment on above: Performed By: #### C BC #### [facility] [address] [place] [address] Dr. Paz Burk MONO # 0.7 103/ul Normal 0.3-0.8 [facility] Comment on above: Performed By: #### C BC #### [facility] [address] [address] [address] Paz Burk Monocytes/100 WBC (Bld) 4.8 % Normal 1.7-12.0 [facility] Comment on above: Performed By: #### C BC #### [facility] [address] [address] [address] Paz Burk NEUT # 10.3 103/ul Critically high 1.4-6.5 [facility] Comment on above: Performed By: #### C BC #### [facility] [address] [address] [address] Paz Burk Neutrophils/100 WBC (Bld) 72.1 % Normal 43.0-75.0 [facility] Comment on above: Performed By: #### C BC #### [facility] [address] [place] [address] Dr. Paz Burk Platelet mean volume (Bld) [Entitic vol] 11.2 fL Normal 9.5-13.5 [facility] Comment on above: Performed By: #### C BC #### [facility] [address] [address] [address] Paz Burk PLT 277 103/ul Normal 150-450 [facility] Comment on above: Performed By: #### C BC #### [facility] [address] [place] [address] Dr. Paz Burk RBC 4.59 106/ul Normal 4.20-5.40 [facility] Comment on above: Performed By: #### C BC #### [facility] [address] [place] [address] Dr. Paz Burk WBC 14.3 103/ul Critically high 4.0-11.0 [facility] Comment on above: Performed By: #### C BC #### [facility] [address] [place] [address] Dr. Paz Burk CTA CHEST WO W [...] LUIS DONATO Date: 2022-01-20 03:10 Normal [facility] Covid-19 PCR ([facility]on 12-29 SARS-CoV-2 (COVID-19) RNA IGNACIO+probe Ql (Unsp spec) Not detected Normal NOT DETECTED [facility] Comment on above: Result Comment: When diagnostic [...] for this test is supported by the [place] [employer] Service's declaration that [...] used). Performed By: #### C VDTBH #### [facility] [address] [place] [address] Dr. Paz Burk D-DIMERon 01-20-2022 D-DIMER 0.40 mg/L FEU Normal <=0.59 [facility] Comment on above: Performed By: #### C MP #### [facility] [address] [place] [address] Dr. Paz Burk D-DIMER COMMENTS SEE BELOW Normal [facility] Comment on above: Result Comment: [...] hospitalization. Performed By: #### C MP #### [facility] [address] [place] [address] Dr. Paz Burk PREG HCG QUALon 01-20-2022 , QUAL Negative Normal NEGATIVE [facility] Comment on above: Performed By: #### C MP #### [facility] [address] [place] [address] Dr. Paz Burk PROF 14(COMP METB)on 022 Albumin [Mass/Vol] 3.3 g/dL Critically low 3.4-5.0 [facility] Comment on above: Performed By: #### C VDTBH #### [facility] [address] [place] [address] Dr. Paz Burk Albumin/Globulin [Mass ratio] 0.8 {ratio} Normal [facility] Comment on above: Performed By: #### C VDTBH #### [facility] [address] [place], [place] [id number] Dr. Paz Burk ALP [Catalytic activity/Vol] 95 U/L Normal 46-116 [facility] Comment on above: Performed By: #### C VDTBH #### [facility] [address] [place] [address] Dr. Paz Burk ALT [Catalytic activity/Vol] 15 U/L Normal 14-59 [facility] Comment on above: Performed By: #### C VDTBH #### [facility] [address] [place] [address] Dr. Paz Burk Anion gap [Moles/Vol] 10.4 mmol/L Normal [facility] Comment on above: Performed By: #### C VDTBH #### [facility] [address] [place] [address] Dr. Paz Burk AST [Catalytic activity/Vol] 10 U/L Critically low 15-37 [facility] Comment on above: Performed By: #### C VDTBH #### [facility] [address] [place] [address] Dr. Paz Burk Bilirubin [Mass/Vol] 0.1 mg/dL Critically low 0.2-1.0 [facility] Comment on above: Performed By: #### C VDTBH #### [facility] [address] [place] [address] Dr. Paz Burk Calcium [Mass/Vol] 8.8 mg/dL Normal 8.5-10.1 [facility] Comment on above: Performed By: #### C VDTBH #### [facility] [address] [place] [address] Dr. Paz Burk Chloride [Moles/Vol] 105 mmol/L Normal 98-107 [facility] Comment on above: Performed By: #### C VDTBH #### [facility] [address] [place] [address] Dr. Paz Burk CO2 [Moles/Vol] 25.3 mmol/L Normal 21.0-32.0 [facility] Comment on above: Performed By: #### C VDTBH #### [facility] [address] [place] [address] Dr. Paz Burk Creatinine [Mass/Vol] 0.83 mg/dL Normal 0.55-1.02 [facility] Comment on above: Performed By: #### C VDTBH #### [facility] [address] [place] [address] Dr. Paz Burk EGFR-AF CZECH >60 Normal >=60 [facility] Comment on above: Performed By: #### C VDTBH #### [facility] [address] [address] [address] Paz Burk EGFR-NON AF CZECH >60 Normal >=60 [facility] Comment on above: Performed By: #### C VDTBH #### [facility] [address] [place] [address] Dr. Paz Burk Globulin (S) [Mass/Vol] 4.1 g/dL Normal [facility] Comment on above: Performed By: #### C VDTBH #### [facility] [address] [place] [address] Dr. Paz Burk Glucose [Mass/Vol] 102 mg/dL Normal 74-106 [facility] Comment on above: Performed By: #### C VDTBH #### [facility] [address] [place] [address] Dr. Paz Burk Potassium [Moles/Vol] 3.7 mmol/L Normal 3.5-5.1 [facility] Comment on above: Performed By: #### C VDTBH #### [facility] [address] [place] [address] Dr. Paz Burk Protein [Mass/Vol] 7.4 g/dL Normal 6.4-8.2 [facility] Comment on above: Performed By: #### C VDTBH #### [facility] [address] [place] [address] Dr. Paz Burk Sodium [Moles/Vol] 137 mmol/L Normal 136-145 [facility] Comment on above: Performed By: #### C VDTBH #### [facility] [address] [place] [address] Dr. Paz Burk Urea nitrogen [Mass/Vol] 11.0 mg/dL Normal 7.0-18.0 [facility] Comment on above: Performed By: #### C VDTBH #### [facility] [address] [address] [address] Paz Burk Urea nitrogen/Creatinine [Mass ratio] 13.3 mg/mg Normal [facility] Comment on above: Performed By: #### C VDTBH #### [facility] [address] [place] [address] Dr. Paz Burk TROPONIN, HIGH SENSITIVITYon 01-20-2022 HSTROP 4.2 pg/mL Normal 4.0-51.3 [facility] Comment on above: Result Comment: CUT- OFF POINTS HAVE BEEN ESTABLISHED BASED ON THE FOURTH UNIVERSAL DEFINITIONS OF MYOCARDIAL INFARCTION. THE UPPER REFERENCE LIMIT (URL) OF TROPONIN, DEFINED THE 99TH PERCENTILE OF cTnI DISTRIBUTION IN A REFERENCE POPULATION, HAS BEEN CONFIRMED THE DECISION THRESHOLD FOR SD DIAGNOSIS. Performed By: #### C #### [facility] [address] [place] [address] Dr. Paz Burk HSTROP <4.0 Normal 4.0-51.3 [facility] Comment on above: Result Comment: CUT- OFF POINTS HAVE BEEN ESTABLISHED BASED ON THE FOURTH UNIVERSAL DEFINITIONS OF MYOCARDIAL INFARCTION. THE UPPER REFERENCE LIMIT (URL) OF TROPONIN, DEFINED THE 99TH PERCENTILE OF cTnI DISTRIBUTION IN A REFERENCE POPULATION, HAS BEEN CONFIRMED THE DECISION THRESHOLD FOR SD DIAGNOSIS. Performed By: #### C VDTBH #### [facility] [address] [place] [address] Dr. Paz Burk XR CHEST 1 Von [...] Cornel QUIÑONES Date: 2022-01-19 23:43 Normal [facility] CBC AUTO DIFFon 10-25-2022 BASO # 0.0 103/ul Normal 0.0-0.1 [facility] Comment on above: Performed By: #### C VDTBH #### [facility] [address] [place] [address] Dr. Paz Burk Basophils/100 WBC (Bld) 0.3 % Normal 0.2-2.0 [facility] Comment on above: Performed By: #### C VDTBH #### [facility] [address] [place] [address] Dr. Paz Burk EO # 0.2 103/ul Normal 0.0-0.7 [facility] Comment on above: Performed By: #### C VDTBH #### [facility] [address] [place] [address] Dr. Paz Burk Eosinophils/100 WBC (Bld) 1.2 % Normal 0.9-7.0 [facility] Comment on above: Performed By: #### C VDTBH #### [facility] [address] [place] [address] Dr. Paz Burk Erythrocyte distribution width (RBC) [Ratio] 14.4 % Normal 11.0-15.0 [facility] Comment on above: Performed By: #### C VDTBH #### [facility] [address] [place] [address] Dr. Paz Burk Hematocrit (Bld) [Volume fraction] 37.7 % Normal 36.0-48.0 [facility] Comment on above: Performed By: #### C VDTBH #### [facility] [address] [place] [address] Dr. Paz Burk Hemoglobin (Bld) [Mass/Vol] 12.0 g/dL Normal 12.0-16.0 [facility] Comment on above: Performed By: #### C VDTBH #### [facility] [address] [place] [address] Dr. Paz Burk IG # 0.06 10e3/ul Critically high 0.00-0.03 [facility] Comment on above: Performed By: #### C VDTBH #### [facility] [address] [address] [address] Paz Burk IG % 0.4 % Normal 0.0-0.5 [facility] Comment on above: Performed By: #### C VDTBH #### [facility] [address] [address] [address] Paz Burk LYMPH # 3.1 103/ul Normal 1.2-3.8 [facility] Comment on above: Performed By: #### C VDTBH #### [facility] [address] [place] [address] Dr. Paz Burk Lymphocytes/100 WBC (Bld) 21.8 % Normal 20.5-60.0 [facility] Comment on above: Performed By: #### C VDTBH #### [facility] [address] [place] [address] Dr. Paz Burk MANUAL DIFF REQ NO Normal [facility] Comment on above: Performed By: #### C VDTBH #### [facility] [address] [place] [address] Dr. Paz Burk MCH (RBC) [Entitic mass] 26.1 pg Critically low 26.7-34.0 [facility] Comment on above: Performed By: #### C VDTBH #### [facility] [address] [place] [address] Dr. Paz Burk MCHC (RBC) [Mass/Vol] 31.8 g/dL Normal 29.9-35.2 [facility] Comment on above: Performed By: #### C VDTBH #### [facility] [address] [place] [address] Dr. Paz Burk MCV (RBC) [Entitic vol] 82.0 fL Normal 81.0-99.0 [facility] Comment on above: Performed By: #### C VDTBH #### [facility] [address] [place] [address] Dr. Paz Burk MONO # 0.8 103/ul Normal 0.3-0.8 [facility] Comment on above: Performed By: #### C VDTBH #### [facility] [address] [place] [address] Dr. Paz Burk Monocytes/100 WBC (Bld) 5.9 % Normal 1.7-12.0 [facility] Comment on above: Performed By: #### C VDTBH #### [facility] [address] [place] [address] Dr. Paz Burk NEUT # 10.0 103/ul Critically high 1.4-6.5 [facility] Comment on above: Performed By: #### C VDTBH #### [facility] [address] [place] [address] Dr. Paz Burk Neutrophils/100 WBC (Bld) 70.4 % Normal 43.0-75.0 [facility] Comment on above: Performed By: #### C VDTBH #### [facility] [address] [place] [address] Dr. Paz Burk Platelet mean volume (Bld) [Entitic vol] 11.0 fL Normal 9.5-13.5 [facility] Comment on above: Performed By: #### C VDTBH #### [facility] [address] [place] [address] Dr. Paz Burk PLT 308 103/ul Normal 150-450 [facility] Comment on above: Performed By: #### C VDTBH #### [facility] [address] [place] [address] Dr. Paz Burk RBC 4.60 106/ul Normal 4.20-5.40 [facility] Comment on above: Performed By: #### C VDTBH #### [facility] [address] [place] [address] Dr. Paz Burk WBC 14.2 103/ul Critically high 4.0-11.0 [facility] Comment on above: Performed By: #### C VDTBH #### [facility] [address] [place] [address] Dr. Paz Burk PROF 14(COMP METB)on 022 Albumin [Mass/Vol] 3.4 g/dL Normal 3.4-5.0 [facility] Comment on above: Performed By: #### C MP #### [facility] [address] [address] [address] Paz Burk Albumin/Globulin [Mass ratio] 0.8 {ratio} Normal [facility] Comment on above: Performed By: #### C MP #### [facility] [address] [place] [address] Dr. Paz Burk ALP [Catalytic activity/Vol] 86 U/L Normal 46-116 [facility] Comment on above: Performed By: #### C MP #### [facility] [address] [place] [address] Dr. Paz Burk ALT [Catalytic activity/Vol] 26 U/L Normal 14-59 [facility] Comment on above: Performed By: #### C MP #### [facility] [address] [place] [address] Dr. Paz Burk Anion gap [Moles/Vol] 14.6 mmol/L Normal [facility] Comment on above: Performed By: #### C MP #### [facility] [address] [place] [address] Dr. Paz Burk AST [Catalytic activity/Vol] 15 U/L Normal 15-37 [facility] Comment on above: Performed By: #### C MP #### [facility] [address] [place] [address] Dr. Paz Burk Bilirubin [Mass/Vol] 0.2 mg/dL Normal 0.2-1.0 [facility] Comment on above: Performed By: #### C MP #### [facility] [address] [place] [address] Dr. Paz Burk Calcium [Mass/Vol] 8.5 mg/dL Normal 8.5-10.1 [facility] Comment on above: Performed By: #### C MP #### [facility] [address] [place] [address] Dr. Paz Burk Chloride [Moles/Vol] 104 mmol/L Normal 98-107 [facility] Comment on above: Performed By: #### C MP #### [facility] [address] [address] [address] aPz Burk CO2 [Moles/Vol] 26.5 mmol/L Normal 21.0-32.0 [facility] Comment on above: Performed By: #### C MP #### [facility] [address] [place] [address] Dr. Paz Burk Creatinine [Mass/Vol] 0.88 mg/dL Normal 0.55-1.02 [facility] Comment on above: Performed By: #### C MP #### [facility] [address] [place] [address] Dr. Paz Burk EGFR-AF CZECH >60 Normal >=60 [facility] Comment on above: Performed By: #### C MP #### [facility] [address] [place] [address] Dr. Paz Burk EGFR-NON AF CZECH >60 Normal >=60 [facility] Comment on above: Performed By: #### C MP #### [facility] [address] [place] [address] Dr. Paz Burk Globulin (S) [Mass/Vol] 4.4 g/dL Normal [facility] Comment on above: Performed By: #### C MP #### [facility] [address] [place] [address] Dr. Paz Burk Glucose [Mass/Vol] 116 mg/dL Critically high 74-106 [facility] Comment on above: Performed By: #### C MP #### [facility] [address] [place] [address] Dr. Paz Burk Potassium [Moles/Vol] 3.1 mmol/L Critically low 3.5-5.1 [facility] Comment on above: Performed By: #### C MP #### [facility] [address] [place] [address] Dr. Paz Burk Protein [Mass/Vol] 7.8 g/dL Normal 6.4-8.2 [facility] Comment on above: Performed By: #### C MP #### [facility] [address] [place] [address] Dr. Paz Burk Sodium [Moles/Vol] 142 mmol/L Normal 136-145 [facility] Comment on above: Performed By: #### C MP #### [facility] [address] [place] [address] Dr. Paz Burk Urea nitrogen [Mass/Vol] 8.0 mg/dL Normal 7.0-18.0 [facility] Comment on above: Performed By: #### C MP #### [facility] [address] [place] [address] Dr. Paz Burk Urea nitrogen/Creatinine [Mass ratio] 9.1 mg/mg Normal [facility] Comment on above: Performed By: #### C MP #### [facility] [address] [place] [address] Dr. Paz Burk PROTIMEon 12-21-2021 INR Coag (PPP) [Relative time] 1.05 {INR} [facility] Comment on above: Performed By: #### P TT, PT #### [facility] [address] [place] [address] Dr. Paz Burk INR GUIDELINES SEE BELOW Normal [facility] Comment on above: Result Comment: NANO RED INR: 2.0 - 3.0 CONDITIONS NOT LISTED BELOW 2.5 - 3.5 FOR PROSTHETIC HEART VALVE REPLACEMENT 2.5 - 3.5 RECURRENT THROMBOSIS Performed By: #### P TT, PT #### [facility] [address] [place] [address] Dr. Paz Burk PT Coag (PPP) [Time] 11.3 s Normal 9.0-11.6 [facility] Comment on above: Performed By: #### P TT, PT #### [facility] [address] [place] [address] Dr. Paz Burk PTTon 12-21-2021 aPTT Coag (Bld) [Time] 32.5 s Normal 22.3-36.2 [facility] Comment on above: Performed By: #### P TT, PT #### [facility] [address] [place] [address] Dr. Paz Burk BLOOD GASES BTYon 11-29-2021 02 MODE ROOM AIR Normal [facility] Comment on above: Performed By: #### C VDTBH #### [facility] [address] [address] [address] Paz Burk ALLENS TEST Positive Normal [facility] Comment on above: Performed By: #### C VDTBH #### [facility] [address] [address] [address] Paz Burk Base excess Calc (Bld) [Moles/Vol] 0.7 mmol/L Normal -2.0-2.0 [facility] Comment on above: Performed By: #### C VDTBH #### [facility] [address] [address] [address] Paz Burk BIPAP PRESSURE [facility] Comment on above: Performed By: #### C VDTBH #### [facility] [address] [place] [address] Dr. Paz Burk CPAP [facility] Comment on above: Performed By: #### C VDTBH #### [facility] [address] [place] [address] Dr. Paz Burk FIO2 [facility] Comment on above: Performed By: #### C VDTBH #### [facility] [address] [address] [address] Paz Burk HCO3 (Bld) [Moles/Vol] 25.3 mmol/L Normal 22.0-26.0 [facility] Comment on above: Performed By: #### C VDTBH #### [facility] [address] [address] [address] Paz Burk LPM [facility] Comment on above: Performed By: #### C VDTBH #### [facility] [address] [address] [address] Paz Burk MINUTE VOLUME Normal [facility] Comment on above: Performed By: #### C VDTBH #### [facility] [address] [place] [address] Dr. Paz Burk Oxygen (Bld) [Partial pressure] 96.1 mm[Hg] Normal 80.0-100.0 [facility] Comment on above: Performed By: #### C VDTBH #### [facility] [address] [address] [address] Paz Burk Oxygen saturation in Blood 99.0 % Normal 95.0-100.0 [facility] Comment on above: Performed By: #### C VDTBH #### [facility] [address] [address] [address] Paz Burk PCO2 35.8 mmHg Normal 35.0-45.0 [facility] Comment on above: Performed By: #### C VDTBH #### [facility] [address] [address] [address] Paz Burk [facility] Comment on above: Performed By: #### C VDTBH #### [facility] [address] [place] [address] Dr. Paz Burk pH (Bld) 7.448 [pH] Normal 7.350-7.450 [facility] Comment on above: Performed By: #### C VDTBH #### [facility] [address] [place] [address] Dr. Paz Burk PIP [facility] Comment on above: Performed By: #### C VDTBH #### [facility] [address] [place] [address] Dr. Paz Burk PS [facility] Comment on above: Performed By: #### C VDTBH #### [facility] [address] [place] [address] Dr. Paz Burk PUNCTURE SITE RR [facility] Comment on above: Performed By: #### C VDTBH #### [facility] [address] [place] [address] Dr. Paz Burk RATE [facility] Comment on above: Performed By: #### C VDTBH #### [facility] [address] [place] [address] Dr. Paz Burk VENT [place]DE [facility] Comment on above: Performed By: #### C VDTBH #### [facility] [address] [place] [address] Dr. Paz Burk VT Normal [facility] Comment on above: Performed By: #### C VDTBH #### [facility] [address] [place] [address] Dr. Paz Burk CULTURE URINEon 08-21-2021 CULTURE URINE Culture Observations : MODERATE GROWTH OF MIXED GENITAL TING. NO POTENTIAL PATHOGENS SEEN. Normal [facility] Comment on above: Performed By: #### C MP #### [facility] [address] [place] [address] Dr. Paz Burk ER URINE PROFILEon Bilirubin Ql (U) Negative Normal NEGATIVE [facility] Comment on above: Performed By: #### C MP #### [facility] [address] [place] [address] Dr. Paz Burk Clarity (U) CLEAR Normal CLEAR [facility] Comment on above: Performed By: #### C MP #### [facility] [address] [place] [address] Dr. Paz Burk Color (U) LT. YELLOW Normal YELLOW [facility] Comment on above: Performed By: #### C MP #### [facility] [address] [place] [address] Dr. Paz POST A micrscopic examination will be performed if indicated. Normal [facility] Comment on above: Performed By: #### C MP #### [facility] [address] [place] [address] Dr. Paz Burk Glucose Ql (U) Negative Normal NEGATIVE [facility] Comment on above: Performed By: #### C MP #### [facility] [address] [place] [address] Dr. Paz Burk Hemoglobin Ql (U) Negative Normal NEGATIVE [facility] Comment on above: Performed By: #### C MP #### [facility] [address] [place] [address] Dr. Paz Burk Ketones Ql (U) Negative Normal NEGATIVE [facility] Comment on above: Performed By: #### C MP #### [facility] [address] [place] [address] Dr. Paz Burk LEUKOCYTES LARGE Abnormal NEGATIVE The [facility] Comment on above: Performed By: #### C MP #### [facility] [address] [place] [address] Dr. Paz Burk Nitrite Ql (U) Negative Normal NEGATIVE [facility] Comment on above: Performed By: #### C MP #### [facility] [address] [address] [address] Paz Burk pH (U) 7.5 [pH] Normal 5-9 [facility] Comment on above: Performed By: #### C MP #### [facility] [address] [place] [address] Dr. Paz Burk SPEC GRAVITY 1.020 Normal 1.005-<=1.025 [facility] Comment on above: Performed By: #### C MP #### [facility] [address] [place] [address] Dr. Paz Burk UA PROTEIN Negative Normal NEGATIVE/ TRACE The [facility] Comment on above: Performed By: #### C MP #### [facility] [address] [place] [address] Dr. Paz Burk UR MICRO IND INDICATED Normal [facility] Comment on above: Performed By: #### C MP #### [facility] [address] [place] [address] Dr. Paz Burk Urobilinogen Qn (U) 0.2 {Ara'U}/dL Normal 0.2 - 1. 0 [facility] Comment on above: Performed By: #### C MP #### [facility] [address] [place] [address] Dr. Paz Burk URon 08-21-2021 , QUAL Negative Normal NEGATIVE [facility] Comment on above: Performed By: #### C MP #### [facility] [address] [place] [address] Dr. Paz Burk URINE MICROSCOPIC ONLYon BACTERIA SMALL Abnormal NONE SEEN The [facility] Comment on above: Performed By: #### C MP #### [facility] [address] [place] [address] Dr. Paz Burk Bacteria identified Cx Nom (U) INDICATED Normal The [facility] Comment on above: Performed By: #### C MP #### [facility] [address] [place] [address] Dr. Paz Burk CAST NONE SEEN Normal NONE SEEN [facility] Comment on above: Performed By: #### C MP #### [facility] [address] [place] [address] Dr. Paz Burk Crystals LM Nom (Urine sed) NONE SEEN Normal NONE SEEN The [facility] Comment on above: Performed By: #### C MP #### [facility] [address] [place] [address] Dr. Paz Burk Epithelial cells LM Ql (Urine sed) FEW Abnormal NONE SEEN /RARE The [facility] Comment on above: Performed By: #### C MP #### [facility] [address] [place] [address] Dr. Paz Burk MUCOUS NONE SEEN Normal NONE SEEN The [facility] Comment on above: Performed By: #### C MP #### [facility] [address] [place] [address] Dr. Paz Burk RBC NONE SEEN Abnormal 0-2 The [facility] Comment on above: Performed By: #### C MP #### [facility] [address] [place] [address] Dr. Paz Burk WBC 5-10 Abnormal NONE SEEN [facility] Comment on above: Performed By: #### C MP #### [facility] [address] [place] [address] Dr. Paz Burk Vital Signs Date Time Vital Sign Value Performing Clinician Facility 09-11-2024 15:33-0400 Body mass index (BMI) [Ratio] 53.58 kg/m2 [facility] 09-11-2024 15:33-0400 Body weight 150.5 kg [facility] 08-28-2024 13:16-0400 Body mass index (BMI) [Ratio] 52.84 kg/m2 Dhruv Jorje [email or web address] Work Phone: [facility] 08-28-2024 13:16-0400 Body weight 148.51 kg Dhruv Jorje DO Work Phone: [facility] 08-28-2024 13:16-0400 Diastolic blood pressure 70 mm[Hg] Dhruv Jorje DO Work Phone: [facility] 08-28-2024 13:16-0400 Systolic blood pressure 122 mm[Hg] Dhruv Jorje DO Work Phone: [facility] 08-21-2024 13:30-0400 Body mass index (BMI) [Ratio] 51.71 kg/m2 Talya Woodard PA Work Phone: [facility] 08-21-2024 13:30-0400 Body weight 145.33 kg Talya Woodard PA Work Phone: [facility] 08-21-2024 13:30-0400 Diastolic blood pressure 72 mm[Hg] Talya Woodard PA Work Phone: [facility] 08-21-2024 13:30-0400 Systolic blood pressure 120 mm[Hg] Talya Woodard PA Work Phone: [facility] 08-05-2024 14:16-0400 Body mass index (BMI) [Ratio] 50.7 kg/m2 Dhruv Jorje DO Work Phone: [facility] 08-05-2024 14:16-0400 Body weight 142.48 kg Dhruv Jorje DO Work Phone: [facility] 08-05-2024 14:16-0400 Diastolic blood pressure 72 mm[Hg] Dhruv Jorje DO Work Phone: [facility] 08-05-2024 14:16-0400 Systolic blood pressure 110 mm[Hg] Dhruv Jorje DO Work Phone: [facility] 07-17-2024 14:16-0400 Body height 167.6 cm Americo Reddy MD Work Phone: [facility] 07-17-2024 14:16-0400 Body mass index (BMI) [Ratio] 50.92 kg/m2 Americo Reddy MD Work Phone: [facility] 07-17-2024 14:16-0400 Body weight 143.02 kg Americo Reddy MD Work Phone: [facility] 07-17-2024 14:16-0400 Diastolic blood pressure 72 mm[Hg] Americo Reddy MD Work Phone: [facility] 07-17-2024 14:16-0400 Heart rate 92 /min Americo Reddy MD Work Phone: [facility] 07-17-2024 14:16-0400 Systolic blood pressure 108 mm[Hg] Americo Reddy MD Work Phone: [facility] 06-26-2024 15:44-0400 Body mass index (BMI) [Ratio] 49.67 kg/m2 Dhruv Jorje DO Work Phone: [facility] 06-26-2024 15:44-0400 Body weight 139.59 kg Dhruv Jorje DO Work Phone: [facility] 06-26-2024 15:44-0400 Diastolic blood pressure 72 mm[Hg] Dhruv Jorje DO Work Phone: [facility] 06-26-2024 15:44-0400 Systolic blood pressure 108 mm[Hg] Dhruv Jorje DO Work Phone: [facility] 06-21-2024 09:02-0400 Body height 167.6 cm Kvng Hugo MD Work Phone: [facility] 06-21-2024 09:02-0400 Body mass index (BMI) [Ratio] 49.67 kg/m2 Kvng Hugo MD Work Phone: [facility] 06-21-2024 09:02-0400 Body weight 139.53 kg Kvng Hugo MD Work Phone: [facility] 06-21-2024 09:02-0400 Diastolic blood pressure 75 mm[Hg] Kvng Hugo MD Work Phone: [facility] 06-21-2024 09:02-0400 Heart rate 91 /min Kvng Hugo MD Work Phone: [facility] 06-21-2024 09:02-0400 Systolic blood pressure 111 mm[Hg] Kvng Hugo MD Work Phone: [facility] 05-27-2024 16:24-0400 Diastolic blood pressure 69 mm[Hg] Kvng Hugo MD Work Phone: [facility] 05-27-2024 16:24-0400 Heart rate 86 /min Kvng Hugo MD Work Phone: [facility] 05-27-2024 16:24-0400 Systolic blood pressure 106 mm[Hg] Kvng Hugo MD Work Phone: [facility] 04-09-2024 11:34-0500 Body mass index (BMI) [Ratio] 45.52 kg/m2 Dhruv Jorje DO Work Phone: [facility] 04-09-2024 11:34-0500 Body weight 127.91 kg Dhruv Jorje DO Work Phone: [facility] 04-09-2024 11:34-0500 Diastolic blood pressure 72 mm[Hg] Dhruv Jorje DO Work Phone: [facility] 04-09-2024 11:34-0500 Systolic blood pressure 116 mm[Hg] Dhruv Jorje DO Work Phone: [facility] 03-08-2024 09:24-0500 Body mass index (BMI) [Ratio] 45.1 kg/m2 [facility] 03-08-2024 09:24-0500 Body weight 126.73 kg [facility] 03-08-2024 09:24-0500 Diastolic blood pressure 70 mm[Hg] [facility] 03-08-2024 09:24-0500 Systolic blood pressure 110 mm[Hg] [facility] 06-29-2020 09:02-0400 Body height 167.64 cm Edith Ford Work Phone: [facility] 06-29-2020 09:02-0400 Body mass index (BMI) [Ratio] 48.2 kg/m2 Edith Ford Work Phone: [facility] 06-29-2020 09:02-0400 Body temperature 97.8 [degF] Edith Ford Work Phone: [facility] 06-29-2020 09:02-0400 Body weight 135.65 kg Edith Ford Work Phone: [facility] 06-29-2020 09:02-0400 Diastolic blood pressure 73 mm[Hg] Edith Ford Work Phone: [facility] 06-29-2020 09:02-0400 Heart rate 69 /min Edith Ford Work Phone: [facility] 06-29-2020 09:02-0400 Respiratory rate 16 /min Edith Ford Work Phone: [facility] 06-29-2020 09:02-0400 SaO2% (BldA) [Mass fraction] 98 % Edith Ford Work Phone: [facility] 06-29-2020 09:02-0400 Systolic blood pressure 130 mm[Hg] Edith Ford Work Phone: [facility] Encounters Encounter Date Encounter Type Care Provider Facility Start: 09-12-2024 End: 09-12-2024 Bamboo flowsheet Dhruv Jorje DO Work Phone: [facility] Start: 09-12-2024 End: 09-12-2024 Bamboo flowsheet Dhruv Jorje DO Work Phone: [facility] Start: 09-12-2024 End: 09-12-2024 ambulatory DHRUV JORJE Not Available Start: 09-11-2024 End: 09-11-[address] Work Phone: [facility] Comment on above: Monochorionic diamni otic twin gestation in third trimester; Gestational diabetes mellitus (GDM) in third trimester, gestational diabetes method of control unspecified Start: 08-29-2024 End: 08-29-2024 Orders Only Quin Rodas RN [facility] [place] Comment on above: Monochorionic diamni otic twin [...] Comment on above: Third trimester preg mamta ([facility]); 34 weeks gestation of ([facility]) Start: 08-28-2024 End: 08-28-2024 ambulatory DHRUV JORJE [...] on above: 33 weeks gestation o f ([facility]); Third trimester ([facility]); Monochorionic diamniotic twin , antepartum ([facility]); Nonintractable headache, unspecified chronicity pattern, unspecified headache type; Other iron deficiency anemia Start: 08-16-2024 End: 08-16-2024 Telephone encounter Americo Reddy MD Work Phone: [facility] [place] Comment on above: Monochorionic diamni otic twin gestation in third trimester (Primary Dx) Start: 08-15-2024 End: 08-15-[address] [facility] Start: 08-05-2024 End: 08-05-2024 Bamboo flowsheet [...] Third trimester Start: 07-31-2024 End: 07-31-[address] [facility] Start: 07-30-2024 End: 07-30-2024 ambulatory Cici Leerose Guadalupe [facility] Work Phone: Start: 07-30-2024 End: 07-30-2024 Departed Referred Cici Guadalupe DO Work Phone: [facility] Start: 07-18-2024 End: 07-18-2024 ambulatory TALYA WOODARD Not Available Start: 07-17-2024 End: 07-17-2024 Office outpatient visit 25 minutes Americo Reddy MD Work Phone: [facility] [place] Comment on above: 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 (Primary Dx) Start: 07-17-2024 End: 07-17-2024 Orders Only Elizabeth Wang RN [facility] Comment on above: Monochorionic diamni otic twin gestation in third trimester (Primary Dx) Start: 07-16-2024 End: 07-16-2024 Clinisync Result Encounter Dhruv Jorje DO Work Phone: [facility] Unsolicited Start: 07-16-2024 End: 07-16-2024 Clinisync Result Encounter Dhruv Jorje DO Work Phone: [facility] Unsolicited Start: 07-05-2024 End: 07-05-[address] [facility] Start: 06-26-2024 End: 06-26-2024 ambulatory DHRUV [...] Only Lara Borrero RN [facility] [place] Comment on above: 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 (Primary Dx); Echogenic intracardiac focus of fetus on ultrasound; 24 weeks gestation of Start: 06-21-2024 End: 06-21-2024 Telephone encounter Oneida Brunson [facility] Start: 06-21-2024 End: 06-21-2024 Office outpatient visit 25 minutes Kvng Hugo MD Work Phone: [facility] [place] Comment on above: 24 weeks gestation o f (Primary Dx); Monochorionic diamniotic twin gestation in second trimester Start: 06-21-2024 End: 06-21-[address] [facility] Start: 06-14-2024 End: 06-14-2024 ambulatory [facility] Start: 06-12-2024 End: 06-12-2024 Orders Only Elizabeth Wang RN [facility] Comment on above: 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 (Primary Dx); Echogenic intracardiac focus of fetus on ultrasound Start: 06-07-2024 End: 06-07-2024 ambulatory TALYA Ely [facility] Start: 05-31-2024 End: 05-31-2024 Office outpatient new 60 minutes Divya Limon M.D. Work Phone: [facility] Comment on above: 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 (Primary Dx) Start: 05-31-2024 End: 05-31-2024 ambulatory MEENU REED [facility] Start: 05-31-2024 End: 05-31-2024 ambulatory NICHOLE HYDE [facility] Start: 05-27-2024 End: 05-27-2024 ambulatory DESMOND Richard HUGO [facility] Start: 05-27-2024 End: 05-27-2024 Office outpatient visit 40 minutes Kvng Hugo MD Work Phone: [facility] Comment on above: 20 weeks gestation o f (Primary Dx); Monochorionic diamniotic twin gestation in second trimester; Echogenic intracardiac focus of fetus on ultrasound Start: 05-27-2024 End: 05-27-[address] [facility] Start: 05-13-2024 End: 05-13-2024 Orders Only Elizabeth Wang RN [facility] Comment on above: 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 (Primary Dx) Start: 05-10-2024 End: 05-10-2024 ambulatory DHRUV R JORJE [facility] Start: 05-07-2024 End: 05-07-2024 ambulatory TALYA WOODARD Not Available Start: 04-26-2024 End: 04-26-2024 Orders Only Lara Borrero RN [facility] Comment on above: 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 (Primary Dx); 16 weeks gestation of Start: 04-11-2024 End: 04-11-2024 Chart abstracting Kvng Hugo MD Work Phone: [facility] Start: 04-10-2024 End: 04-10-2024 Telephone encounter Brittanie Chen LPN [facility] Start: 04-09-2024 End: 04-09-2024 Bamboo flowsheet Dhruv [...] Start: 03-03-2022 End: 03-04-2022 ambulatory Neal Garcia Facility:[facility] Start: 03-03-2022 End: 03-03-2022 Patient encounter procedure Edith Ford [facility] Start: 02-23-2022 End: 02-24-[address] DOCTOR MISC Facility:[facility] Start: 01-20-2022 End: 01-20-[address] DOCTOR MISC Facility:[facility] Start: 12-21-2021 End: 12-21-[address] DOCTOR MISC Facility:[facility] Start: 11-29-2021 End: 11-29-[address] DOCTOR MISC Facility:[facility] Start: 08-21-2021 End: 08-21-[address] DOCTOR MISC Facility:[facility] Start: 06-29-2020 End: 06-29-2020 Emergency department patient visit Edith Ford Work Phone: [facility] Procedures Date Procedure Procedure Detail [...] Dhruv Jorje DO Work Phone: Appendectomy Edith Jonessanta n History of tympanostomy tubes in ears [place] Ford Tubes in Ears Edith Cho on Plan of Treatment Date Care Activity Detail Author Start: 05-08-2027 Screening for malign ant neoplasm of cervix Pap Smear [facility] Start: 08-16-2025 End: 08-16-2025 US MFM with or without consult US MFM with or without consult Imaging Routine Monochorionic 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 Expected: 08/16/2025 (Approximate), Expires: 08/16/2025 Click Contact Work Phone: Comment on above: Expected: 08/16/2025 (Approximate), Expires: 08/16/2025 Start: 07-17-2025 Adult BMI Screening [facility] Start: 07-17-2025 Tobacco Screening Tobacco Screening [facility] Start: 07-17-2025 End: 07-17-2025 US MFM with or without consult US MFM with or without consult Imaging Routine Monochorionic 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 Expected: 07/17/2025 (Approximate), Expires: 07/17/2025 Click Contact Work Phone: Comment on above: Expected: 07/17/2025 (Approximate), Expires: 07/17/2025 Start: 06-24-2025 End: 06-24-2025 US MFM with or without consult US MFM with or without consult Imaging Routine Monochorionic diamniotic twin gestation in second trimester Echogenic intracardiac focus of fetus on ultrasound 24 weeks gestation of Expected: 06/24/2025 (Approximate), Expires: 06/24/2025 Click Contact Work Phone: Comment on above: Expected: 06/24/2025 (Approximate), Expires: 06/24/2025 Start: 06-21-2025 Adult BMI Screening Adult BMI Screen ing [facility] Start: 06-21-2025 Tobacco Screening Tobacco Screening [facility] Start: 06-12-2025 End: 06-12-2025 US MFM with or without consult US MFM with or without consult Imaging Routine Monochorionic diamniotic twin gestation in second trimester Echogenic intracardiac focus of fetus on ultrasound Expected: 06/12/2025 (Approximate), Expires: 06/12/2025 [employer] Work Phone: Comment on above: Expected: 06/12/2025 (Approximate), Expires: 06/12/2025 Start: 05-27-2025 Tobacco Screening Tobacco Screening [facility] Start: 05-13-2025 End: 05-13-2025 US MFM with or without consult US MFM with or without consult Imaging Routine Monochorionic diamniotic twin gestation in second trimester Expected: 05/13/2025 (Approximate), Expires: 05/13/2025 [employer] Work Phone: Comment on above: Expected: 05/13/2025 (Approximate), Expires: 05/13/2025 Start: 04-26-2025 Adult BMI Screening Adult BMI Screen ing [facility] Start: 04-26-2025 Tobacco Screening Tobacco Screening [facility] Start: 04-26-2025 End: 04-26-2025 US MFM with or without consult US MFM with or without consult Imaging Routine Monochorionic diamniotic twin gestation in second trimester 16 weeks gestation of Expected: 04/26/2025 (Approximate), Expires: 04/26/2025 [employer] Work Phone: Comment on above: Expected: 04/26/2025 (Approximate), Expires: 04/26/2025 Start: 10-28-2024 AMB SEASONAL FLU VACCINE (Season Ended) AMB SEASONAL FLU VACCINE (Season Ended) [facility] Start: 10-28-2024 Influenza vaccination [facility] Start: 09-12-2024 End: 09-12-2024 Patient encounter procedure [facility] Comment on above: Arrived Start: 09-11-2024 End: 09-11-2024 Patient encounter procedure 09/11/2024 1:30 PM EDT Appointment [facility] US Imaging [address] [place] [phone] [facility] Imaging Start: 08-29-2024 End: 08-29-2024 Patient encounter procedure 08/29/2024 3:30 PM EDT Appointment [facility] US Imaging [address] [place] [address] [facility] Imaging Start: 08-28-2024 End: 08-28-2024 Patient encounter procedure 08/28/2024 1:00 PM EDT Routine [facility] [address] [place] [phone] Dhruv Recinos DO [address] [place] [address] [facility] Start: 08-19-2024 End: 08-19-2024 Patient encounter procedure 08/19/2024 2:30 PM EDT Routine [facility] [address] [place] [address] Talya Woodard PA [address] [place] [address] [facility] Start: 08-15-2024 End: 08-15-2024 Patient encounter procedure 08/15/2024 11:30 AM EDT Appointment [facility] US Imaging [address] [place] [phone] [facility] Imaging Start: 07-31-2024 End: 07-31-2024 Patient encounter procedure 07/31/2024 3:30 PM EDT Appointment [facility] US Imaging [address] [place] [address] [facility] US Imaging Start: 07-30-2024 Urine culture [facility] Start: 07-30-2024 Bacteria identified in Urine by Culture Urine Culture [facility] Start: 07-18-2024 End: 07-18-2024 Patient encounter procedure 07/18/2024 1:30 PM EDT Routine [facility] [address] [place] [address] Talya Woodard PA [address] [place] [address] [facility] Start: 07-17-2024 End: 07-17-2024 Patient encounter procedure [facility] Imaging Start: 07-05-2024 End: 07-05-2024 Patient encounter procedure [facility] at [facility] Start: 06-27-2024 End: 06-27-2024 Patient encounter procedure 06/27/2024 1:00 PM EDT Appointment [facility] US Imaging [address] [place] [phone] [facility] US Imaging Start: 06-26-2024 End: 06-26-2025 CBC panel - Blood by Automated count CBC Lab Routine Diabetes mellitus screening Expected: 06/26/2024 (Approximate), Expires: 06/26/2025 [facility] Work Phone: Comment on above: Expected: 06/26/2024 (Approximate), Expires: 06/26/2025 Start: 06-26-2024 End: 06-26-2025 Measurement of glucose 1 hour after glucose challenge for glucose tolerance test Glucose tolerance, 1 hour Lab Routine Diabetes mellitus screening Expected: 06/26/2024 (Approximate), Expires: 06/26/2025 [facility] Comment on above: Expected: 06/26/2024 (Approximate), Expires: 06/26/2025 Start: 06-26-2024 End: 12-26-2024 US biophysical profile w non stress test US biophysical profile w non stress test Imaging Routine Monochorionic diamniotic twin , antepartum Expected: 06/26/2024 (Approximate), Expires: 12/26/2024 [facility] Comment on above: Expected: 06/26/2024 (Approximate), Expires: 12/26/2024 Start: 06-24-2024 End: 06-24-2024 Patient encounter procedure 06/24/2024 2:30 PM EDT Office Visit Maternal- Medicine at [facility] [address] [place] [phone] Americo Reddy MD [address] [place] [address] [facility] at [facility] Start: 06-21-2024 End: 06-21-2024 Patient encounter procedure 06/21/2024 11:30 AM EDT Office Visit [facility]- Medicine at [facility] [address] [place] [phone] Kvng Hugo MD [address], [address] [place] [address] [facility] at [facility] Start: 06-21-2024 End: 06-21-2024 Patient encounter procedure 06/21/2024 8:45 AM EDT Appointment [facility] US Imaging [address] [place] [phone] [facility] Imaging Start: 06-14-2024 End: 06-14-2024 Patient encounter procedure 06/14/2024 2:15 PM EDT Appointment [facility] [place] [address] [place] [address] [place] [address] [facility] [place] Start: 06-07-2024 End: 06-07-2024 Patient encounter procedure 06/07/2024 9:45 AM EDT Appointment [facility] [place] [address] [place] [address] [facility] [place] Start: 05-27-2024 End: 05-27-2024 Patient encounter procedure 05/27/2024 1:00 PM EDT Appointment [facility] US Imaging [address] [place] [phone] [facility] Imaging Start: 05-10-2024 End: 05-10-2024 Patient encounter procedure 05/10/2024 1:45 PM EDT Appointment [facility] US Imaging [address] [place] [phone] [facility] Imaging Start: 05-07-2024 End: 05-07-2024 Patient encounter procedure 05/07/2024 9:30 AM EDT Office Visit [facility] [address] [place] [address] [place] [address] Talya Woodard PA [address] [place] [address] [facility] Start: 04-26-2024 End: 04-26-2024 Patient encounter procedure 04/26/2024 8:45 AM EST Office Visit Maternal- Medicine at [facility] [address] [place] [address] Kvng Hugo MD [address], [address] [place] [address], [place] [address] [facility]- Medicine at [facility] Start: 04-26-2024 End: 04-26-2024 Patient encounter procedure 04/26/2024 7:30 AM EST Appointment [facility] Imaging [address] [facility] [place] [phone] [facility] Imaging Start: 04-09-2024 End: 04-09-2024 Patient encounter procedure 04/09/2024 11:20 AM EST Routine [facility] [address] [facility] [place] [phone] Dhruv Recinos DO [address] [place] [address] Arrived [facility] Comment on above: Arrived Start: 04-08-2024 End: 04-08-2024 Patient encounter procedure 04/08/2024 9:20 AM EST Routine [facility] [address] [place] [phone] Dhruv Recinos, [address] [place] [address] [facility] Start: 03-08-2024 End: 03-08-2025 ABO/Rh ABO/Rh Lab Routine Missed menses , unspecified gestational age Expected: 03/08/2024 (Approximate), Expires: 03/08/2025 [facility] Comment on above: Expected: 03/08/2024 (Approximate), Expires: 03/08/2025 Start: 03-08-2024 End: 03-08-2025 Blood type and Indirect antibody screen panel - Blood Type and screen Lab Routine Missed menses , unspecified gestational age Expected: 03/08/2024 (Approximate), Expires: 03/08/2025 [facility] Work Phone: Comment on above: Expected: 03/08/2024 (Approximate), Expires: 03/08/2025 Start: 03-08-2024 End: 03-08-2025 Drugs of abuse panel - Urine by Screen method Rapid drug screen, urine Lab Routine , unspecified gestational age Encounter for supervision of normal first in first trimester Expected: 03/08/2024 (Approximate), Expires: 03/08/2025 [facility] Comment on above: Expected: 03/08/2024 (Approximate), Expires: 03/08/2025 Start: 10-29-2023 COVID-19 Vaccine ( season) COVID-19 Vaccine ( season) [facility] Start: 10-29-2023 Influenza vaccination Influenza Vacc ine [facility] Start: 11-27-2021 DTaP,Tdap and Td Vaccines (7 - Td or Tdap) DTaP,Tdap and Td Vaccines (7 - Td or Tdap) [facility] Start: 10-05-2019 Screening for malign ant neoplasm of cervix Pap Smear [facility] Start: 2017 DTaP,Tdap and Td Vaccines (1 - Tdap) DTaP,Tdap and Td Vaccines (1 - Tdap) [facility] Start: 2017 HEPATITIS B IMMUNIZATION (1 of 3 - 19+ 3-dose series) HEPATITIS B IMMUNIZATION (1 of 3 - 19+ 3-dose series) [facility] Start: 2016 Adult BMI Follow Up Plan Adult BMI Follow Up Plan [facility] Start: 2016 Adult BMI Screening Adult BMI Screen ing [facility] Start: 2013 HPV IMMUNIZATION (1 - 3-dose series) HPV IMMUNIZATION (1 - 3-dose series) [facility] Start: 10-05-2011 VARICELLA IMMUNIZATI ON (1 of 2 - 13+ 2-dose series) VARICELLA IMMUNIZATION (1 of 2 - 13+ 2-dose series) [facility] Start: 2010 Depression Screening Depression Scre ening [facility] Start: 2010 Tobacco Screening Tobacco Screening [facility] Start: 2005 DTAP/Tdap/Td IMMUNIZATION (1 - Tdap) DTAP/Tdap/Td IMMUNIZATION (1 - Tdap) [facility] Start: 10-05-1999 MMR IMMUNIZATION (1 of 1 - Standard series) MMR IMMUNIZATION (1 of 1 - Standard series) [facility] Bacteria identified in Urine by Culture Urine culture Microbiology Routine Missed menses Ordered: 03/08/2024 [facility] Comment on above: Ordered: 03/08/2024 CBC W Auto Different ial panel - Blood CBC and differential Lab Routine Missed menses , unspecified gestational age Ordered: 03/08/2024 [facility] Comment on above: Ordered: 03/08/2024 Hemoglobin A1c/Hemoglobin.total in Blood Hemoglobin A1c Lab Routine Missed menses , unspecified gestational age Ordered: 03/08/2024 [facility] Comment on above: Ordered: 03/08/2024 Hepatitis B virus surface Ag [Presence] in Serum or Plasma by Immunoassay Hepatitis B surface antigen Lab Routine Missed menses , unspecified gestational age Ordered: 03/08/2024 [facility] Comment on above: Ordered: 03/08/2024 Hepatitis C virus Ab [Presence] in Serum or Plasma by Immunoassay Hepatitis C antibody Lab Routine Missed menses , unspecified gestational age Ordered: 03/08/2024 [facility] Comment on above: Ordered: 03/08/2024 HIV-1/HIV-2 antigen/antibody combination immunoassay HIV-1 and HIV-2 antibodies Lab Routine Missed menses , unspecified gestational age Ordered: 03/08/2024 [facility] Comment on above: Ordered: 03/08/2024 Patient Education Muscle Strain (ED) [facility] Patient referral [facility] Reagin Ab [Presence] in Serum by RPR RPR Lab Routine Missed menses , unspecified gestational age Ordered: 03/08/2024 [facility] Comment on above: Ordered: 03/08/2024 Rubella antibody, IgG Rubella an tibody, IgG Lab Routine Missed menses , unspecified gestational age Ordered: 03/08/2024 [facility] Comment on above: Ordered: 03/08/2024 Immunizations Immunization Date Immunization Notes Care Provider Sherron meek 01-30-2012 influenza virus vaccine, unspecified formulation [facility] Payers Date Payer Category Payer Self-pay [id number] 2024 Medicaid [facility] Medicaid Address: [facility] [address] [place] [address] [id number] 2024 Medicaid HMO [id number] 2023 Private Health Insurance [facility] MEDICAID [id number] 1998 Unknown [id number] 2.16.840.1.403665.3.579.2. 727 1998 Unknown [id number] 2.16.840.1.698353.3.579.2. 593 1998 Unknown [id number] 2.16.840.1.302552.3.579.2. 593 1998 Unknown [id number] 2.16.840.1.044557.3.579.2. 593 1998 Unknown [id number] 2.16.840.1.787434.3.579.2. 593 1998 Unknown [id number] 2.16.840.1.186245.3.579.2. 593 1998 Unknown [id number] 2.16.840.1.003488.3.579.2. 593 1998 Unknown [id number] 2.16.840.1.802310.3.579.2. 593 1998 Unknown [id number] 2.16.840.1.579848.3.579.2. 1281 1998 Unknown [id number] 2.16.840.1.418025.3.579.2. 1281 1998 Unknown [id number] 2.16.840.1.796705.3.579.2. 1281 1998 Unknown [id number] 2.16.840.1.448945.3.579.2. 1281 1998 Unknown [id number] 2.16.840.1.540272.3.579.2. 1281 1998 Unknown [id number] 2.16.840.1.441208.3.579.2. 1281 1998 Unknown [id number] 2.16.840.1.442249.3.579.2. 1286 1998 Unknown [id number] 2.16.840.1.209721.3.579.2. 1286 1998 Unknown [id number] 2.16.840.1.369599.3.579.2. 1286 1998 Unknown [id number] 2.16.840.1.823357.3.579.2. 1285 1998 Unknown [id number] 2.16.840.1.607845.3.579.2. 128 1998 Unknown [id number] 2.16840.1.235852.3.579.2. 128 1998 Unknown [id number] 2.16840.1.382198.3.579.2. 128 1998 Unknown [id number] 2.840.1.308926.3.579.2. 1285 1998 Unknown [id number] 2.840.1.554256.3.579.2. 1285 1998 Unknown [id number] 2.840.1.228236.3.579.2. 128 1998 Unknown [id number] 2.840.1.634744.3.579.2. 1285 1998 Unknown [id number] 2.840.1.225709.3.579.2. 128 1998 Unknown [id number] 2.840.1.845616.3.579.2. 1285 1998 Unknown [id number] 2.840.1.878744.3.579.2. 128 1998 Unknown [id number] 2.840.1.031593.3.579.2. 128 1998 Unknown [id number] 2.16840.1.670109.3.579.2. 128 1998 Unknown [id number] 2.840.1.773275.3.579.2. 128 1998 Unknown [id number] 2.840.1.015291.3.579.2. 1259 1998 Unknown [id number] 2.16.840.1.814008.3.579.2. 9 1998 Unknown [id number] 2.16.840.1.511774.3.579.2. 9 1998 Unknown [id number] 2.16.840.1.938540.3.579.2. 1258 1998 Unknown [id number] 2.16.840.1.319033.3.579.2. 9 1998 Unknown [id number] 2.16.840.1.553149.3.579.2. 1258 1998 Unknown [id number] 2.16.840.1.218070.3.579.2. 9 1998 Unknown [id number] 2.16.840.1.461225.3.579.2. 1258 1998 Unknown [id number] 2.16.840.1.919784.3.579.2. 9 1959 Unknown [id number] 1959 Unknown [id number] Unknown [id number] 2.16.840.1.192733.3.579.2. 531 Social History Date Type Detail Facility Start: 06-29-2020 End: 06-29-2023 Tobacco smoking status DCIS Never smoked tobacco (finding) [facility] Start: 2000 Sex Assigned At Female [facility] Tobacco Household tobacc o concerns: Yes. [facility] Tobacco smoking status No Smoking Status Entered [facility] Start: 03-08-2024 End: 09-11-2024 Sex Assigned At Female [facility] Start: 06-29-2023 End: 04-11-2024 Tobacco use and exposure Smokeless tobacco non-user [facility] Start: 03-08-2024 End: 08-21-2024 Alcoholic beverage intake Lifetime non-drinker (finding) [facility] Start: 03-08-2024 End: 09-11-2024 History of Social function [facility] Start: 01-17-2024 [facility] Start: 1998 Sex assigned at Not on file [facility] Tobacco smoking status NHIS Tobacco smoking consumption unknown [facility] Unknown [facility] Start: 09-30-2014 End: 08-01-2024 Sex Female (finding) [facility] Start: 05-31-2024 Alcoholic beverage intake Ex-drinker (finding) [facility] NEGATED: Highlighted rowStart: NINF History of tobacco use Passive smoker [facility] Medical Equipment Procedure Code Equipment Code Equipment Origin al Text Equipment Identifier Dates 1 strip by In Vi tro route Daily Use in the morning prior to breakfast, 1 hour after each meal for a total of 4times daily. 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 Rashaad Recinos Name: Dr. Edith Ford Name: City: City[place]: Last time seen: 08/28/24 Last time [...] for you: Other None Primary Language spoken: Setswana [22] Primary Language for learning: Setswana Are you currently in a relationship where you are physically hurt, threatened or made to fee afraid? [] Yes [] No [employer] needed? [] Yes [] No Marital status/Living [...] Interpersonal Safety: Low Risk (05/31/2024) Received from [facility] Intimate Partner Violence Safe in [...] If yes, where: On thge following scale, [place] the number, which describes your current level [...] Medical History: Diagnosis Date BMI 45.0-49.9, adult ([facility]) Irregular periods Oligomenorrhea PCOS (polycystic ovarian syndrome) [...] Educational Level High School Family issues stable Cultural/ethnic/zoroastrian influences denies Exercise approved by MD? Yes Current Exercise program walking Who prepares the meal pt Who purchase food at your home? pt Equipment use for cooking/food storage has all Food Assistance(Ex.WIC, Food [place]) has already Dining out Yes couple times per week Appetite/Appetite changes no change Weight History stable Do you have cats at home? Feeding Plans Breast Feeding If you have cats, who cleans the litter box? Cravings/Aversions/Pica none Nutrition Assessment Worksheet: Week/Weekend Food Recall Breakfast Something 1-2 hours after waking up Snack Lunch [place] Snack Fruit or Hot cheetos and cream cheese Dinner Azeri food Rice Onion green pepper Steak Water [...] time 20 minutes. documented in this encounter [facility] 09-11-2024 Instructions Zeynep Sellers RN - 09/11/2024 [...] HOURS WHILE AWAKE documented in this encounter [facility] 08-28-2024 History of Presen t illness Narrative [...] nursing note reviewed. Exam conducted with a agricultural equipment test engineer present. Vitals: Estimated body mass index is 52.84 kg/m as calculated from the following: Height as of 06/02/22: 5' 6 . Weight as of this encounter: 327 lb 6.4 oz. BP: 122/70 Patient's last menstrual period was 01/03/2024. ASSESSMENT & PLAN ICD-10-CM 1. Third trimester ([facility]) Z34.93 2. 34 weeks gestation of ([facility]) Z3A.34 Return OB: Patient presents today for [...] Dhruv Recinos DO documented in this encounter [facility] 08-21-2024 History of Presen t illness [...] nursing note reviewed. Exam conducted with a agricultural equipment test engineer present. Vitals: Estimated body mass index is 51.71 kg/m as calculated from the following: Height as of 06/02/22: 5' 6 . Weight as of this encounter: 320 lb 6.4 oz. BP: 120/72 Patient's last menstrual period was 01/03/2024. ASSESSMENT & PLAN ICD-10-CM 1. 33 weeks gestation of ([facility]) Z3A.33 POCT urinalysis dipstick manually resulted 2. Third trimester ([facility]) Z34.93 POCT urinalysis dipstick manually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
--- OUTSIDE RECORDS SUMMARY | 2024-09-16 05:58 | XMS_ITS | Encounter Summary ---
Author Organization [facility] [employer] [facility] tem Address [id number] [address] [place] [address] Care Team Providers Care [employer] Name Role Phone Unavailable Primary Care Provider Unavailabl e Encounter Details Date Type Department Care Team (Late st Contact Info) Description 06/04/2024 Orders Only Maternal- Medicine at [facility] [address] [place] [id number] Ref Prov, [place] [address] Social History Tobacco Use Types Packs/Day Years [...]
--- OUTSIDE RECORDS SUMMARY | 2024-09-16 05:58 | XMS_ITS | Encounter Summary ---
Author Organization [employer] tem Address [id number] [address] [place] [address] Care Team Providers Care Hepatologist Name Role Phone Unavailable Primary Care Provider [...]
--- OUTSIDE RECORDS SUMMARY | 2024-09-16 05:58 | XMS_ITS | Patient Health Record ---
Author Organization [employer] [facility] Address [address] [place] [address] Care Team Providers Care International Controller Name Role Phone Siddharth Weinstein Primary Care Provider Reason For Referral No Information Encounters Encounter Location Date Provider Diagnosis [address] [place] [address] 06/05/2024 Siddharth Weinstein Cracked tooth K03.81 ; [...] [facility] [place] [address] [place] [address] [id number] JUAN DIEGO ROMERO Self - patient is the insured [employer] [facility] [address] [place] [address] [id number] JUAN DIEGO ROMERO Self - patient is the insured 3
--- OUTSIDE RECORDS SUMMARY | 2024-09-16 05:58 | XMS_ITS | Encounter Summary ---
Author Organization [facility] tem Address [id number] [address] [place] [address] Care Team Providers Care Sales Service Representative Name Role Phone Unavailable Primary Care Provider Unavailabl e Encounter Details Date Type Department Care Team (Late st Contact Info) Description 04/11/2024 Orders Only Maternal- Medicine at [facility] [address] [place] [phone] Ref Prov, [place] [address] Social History Tobacco Use Types Packs/Day Years [...] ORDERABLES Dang l Result Performing Organization Address City/[facility]/ZIP Co de Phone Number MANUALLY TRANSCRIBED RESULTS * Unlisted Lab Test (03/15/2024 12:14 PM EST) us Not In System Ref Prov LAB BLOOD ORDERABLES Dang l Result Performing Organization Address [facility] Co de Phone Number MANUALLY TRANSCRIBED RESULTS * Ultrasound - Office (02/23/2024 12:24 PM EST) Anatomical Region Laterality Modality AMB Ultrasound us Not In System Ref Prov IMG US ORDERABLES Final R esult documented in this encounter Visit Diagnoses Not on filedocumented in this encounter
--- OUTSIDE RECORDS SUMMARY | 2024-09-16 05:58 | XMS_ITS | Clinical Summary ---
Author Organization [place] [facility] Address [id number] [address] [place] [address] Care Team Providers Care Cleaner Housekeeping Name Role Phone Unavailable Primary Care Provider [...] different from the original. CARE COORDINATION DIAGNOSIS: [place] Di Twins with 28% Discordancy Resolved Pt removed from NICU list Referring OB: Jorje MFM: Julian Maternal Hx: MSAFP: cfDNA: Low risk Monozygotic XX XX Carrier: Neg 05/31 Amnio: []Genetic Counselling: []Peds Cardiology: []Peds Urology: []Peds Ortho: []Peds Surgery: []Peds Neurology: []Peds Neurosurgery: []Peds Craniofacial: []NICU Consult: []Palliative Care Consult: []SGM: []Life Connection: [x][place]: 05/31/24 Today's imaging is very reassuring. Normal anatomy and echocardiogram without anomalies. Additionally, no evidence of twin-twin transfusion syndrome (TTTS), twin-anemia polycythemia sequence (TAPS), or selective growth restriction (sFGR). No interventions are recommended at this time. Can resume follow up with primary MFM. [] MRI: []Nationwide: [][facility]: [][facility]: [x][facility]: Delivery Recommendation: [] Term at local hospital [] Term at [facility] Surveillance Plan: [x] Survey at 20 weeks [...] - 09/11/2024 11:59 PM EDT Hospital Encounter [facility] [place] [facility] [address] [place] [address] Monochorionic 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 Discharge Disposition: Home 09/11/2024 11:00 AM EDT Support Visit Maternal- Medicine at [facility] [place] [address] [place] [address] Monochorionic 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; Gestational diabetes mellitus (GDM) in third trimester, gestational diabetes method of control unspecified 09/11/2024 Travel 08/29/2024 3:02 PM EDT - 08/29/2024 11:59 PM EDT Hospital Encounter [facility] [place] - [facility] Imaging [address] [place] [address] Monochorionic 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 Discharge Disposition: Home 08/29/2024 Travel 08/29/2024 Orders Only Maternal- Medicine at [facility] [place] [address] [place] [address] Quin Rodas RN Monochorionic 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 (Primary Dx); Gestational diabetes mellitus (GDM) in third trimester, gestational diabetes method of control unspecified 08/16/2024 Orders Only Maternal- Medicine at [facility] [place] [address] [place] [address] Elizabeth Wang RN Monochorionic 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 (Primary Dx) 08/16/2024 Telephone Maternal- Medicine at [facility] [place] [address] [place] [address] Aiden Reddy MD 08/15/2024 11:30 AM EDT - 08/15/2024 11:59 PM EDT Hospital Encounter [facility] [place] - [facility] Imaging [address] [place] [address] Monochorionic 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 Discharge Disposition: Home 08/15/2024 Travel 07/31/2024 3:30 PM EDT - 07/31/2024 11:59 PM EDT Hospital Encounter [facility] [place] - [facility] US Imaging [address] [place] [address] Monochorionic 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 Discharge Disposition: Home 07/31/2024 Travel 07/17/2024 2:00 PM EDT Office Visit Maternal- Medicine at [facility] [place] [address] [place] [address] Aiden Reddy MD Monochorionic diamniotic twin gestation in second trimester (Primary Dx) 07/17/2024 1:15 PM EDT - 07/17/2024 11:59 PM EDT Hospital Encounter [facility] [place] - [facility] US Imaging [address] [place] [address] Monochorionic diamniotic twin gestation in second trimester; Echogenic intracardiac focus of fetus on ultrasound; 24 weeks gestation of Discharge Disposition: Home 07/17/2024 Orders Only Maternal- Medicine at [facility] [place] [address] [place] [address] Elizabeth Wang RN Monochorionic 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 (Primary Dx) 07/17/2024 Travel 07/05/2024 8:00 AM EDT - 07/05/2024 11:59 PM EDT Hospital Encounter [facility] [place] [facility] Imaging [address] [place] [address] Monochorionic diamniotic twin gestation in second trimester; Echogenic intracardiac focus of fetus on ultrasound; 24 weeks gestation of Discharge Disposition: Home 07/05/2024 Travel 06/24/2024 Orders Only Maternal- Medicine at [facility] [place] [address] [place] [address] Lara Borrero RN Monochorionic diamniotic twin gestation in second trimester (Primary Dx); Echogenic intracardiac focus of fetus on ultrasound; 24 weeks gestation of 06/21/2024 11:30 AM EDT Office Visit Maternal- Medicine at [facility] [place] [address] [place] [address] Kvgn Jordan MD 24 weeks gestation of (Primary Dx); Monochorionic diamniotic twin gestation in second trimester 06/21/2024 8:27 AM EDT - 06/21/2024 11:59 PM EDT Hospital Encounter [facility] [place] [facility] US Imaging [address] [place] [address] Monochorionic diamniotic twin gestation in second trimester; Echogenic intracardiac focus of fetus on ultrasound Discharge Disposition: Home 06/21/2024 Telephone Maternal- Medicine at [facility] [place] [address] [place] [address] Oneida Brunson 06/21/2024 Travel from Last 3 Months Family History [...] Echogenic intracardiac focus of fetus on ultrasound from Last 3 Months Results * US MFM OB FOLLOW-UP, 1 FETUS (09/11/2024 2:44 PM EDT) Only the most recent of7 resultswithin the time period is included. Anatomical Region Laterality Modality OB-PLASTIC PARTS DESIGNER Ultrasound 09/11/2024 2:07 PM EDT Narrative 09/11/2024 2:51 PM EDT NAME: HEATHER ADAMSON : 2000 SEX: F Accession Number: [id number] ORDERING PHYSICIAN: AIDEN REDDY REFERRING PHYSICIAN: DEMETRIUS BRYSON Coding ----- --------- Procedures 39810: Follow-up Ultrasound, per fetus. 2 Indication ----- --------- Obesity in , [place]-Di twin , Supervision of high risk - A - EIF. History ----- --------- OB History 1. Para 0 [id number] Current ----- --------- Cell free DNA LOW [...] EFW (oz) 8 oz EFW by: Hadlock ([id number]) Extended Tibia 60.4 mm 35w 1d 57% Umberto Data Report Analyst 5.8 mm Head / Face / Neck [...] EFW (oz) 14 oz EFW by: Hadlock ([id number]-EL-MA-FL) Extended Tibia 61.3 mm 35w 4d 70% [...] ADAMSON : 2000 SEX: F Accession Number: [id number] ORDERING PHYSICIAN: AIDEN REDDY REFERRING PHYSICIAN: DEMETRIUS BRYSON Coding ----- --------- Procedures 42266: Follow-up Ultrasound, per fetus. 2 Indication ----- --------- Obesity in , [place]-Di twin , Supervision of high riskpregnancy - A - EIF. History ----- --------- OB History 1. Para 0 [id number] Current ----- --------- Cell free DNA LOW [...] EFW (oz) 8 oz EFW by: Hadlock ([id number]-CU-JZ-FL) Extended Tibia 60.4 mm 35w 1d 57% Umberto Data Report Analyst 5.8 mm Head / Face / Neck [...] EFW (oz) 14 oz EFW by: Hadlock (ZST-ML-CU-FL) Extended Tibia 61.3 mm 35w 4d 70% [...] byprimary OB provider unless otherwise specified by [facility]. Aiden Reddy MD [facility] ORDERABLES Final Resul t from Last 3 Months Insurance [employer]
[2024-09-16] MEDS: 0.9 % SODIUM CHLORIDE 1,000 ML 1000 ML IV ×2 (06:36→07:11)
[2024-09-16 06:53] LABS: Hematocrit 34.0 % (36.0-48.0); Hemoglobin 11.0 g/dL (12.0-16.0); Immature Granulocytes Abs Auto 0.04 10^3/uL (0.00-0.03); Immature Granulocytes Pct Auto 0.4 % (0.0-0.5); Lymphocytes Absolute Auto 2.1 10^3/uL (1.2-3.8); Mean Corpuscular HGB Conc 32.4 g/dL (29.9-35.2); Mean Corpuscular Hemoglobin 25.9 pg (26.7-34.0); Mean Corpuscular Volume 80.2 fL (81.0-99.0); Platelet Count 170 10^3/uL (150-450); Red Blood Count 4.24 10^6/uL (4.20-5.40); White Blood Count 11.1 10^3/uL (4.0-11.0)
[2024-09-16 07:02] LABS: Cannabinoid Screen Urine POSITIVE (NEGATIVE); Methamphetamines Screen Urine NEGATIVE (NEGATIVE); Tricyclic Antidepressant Urine NEGATIVE (NEGATIVE)
[2024-09-16] MEDS: FAMOTIDINE/PF 20 MG/2 ML VIAL IV (07:12)
[2024-09-16] MEDS: CITRIC ACID/SODIUM CITRATE 30 ML SOLUTION ORACIT SHOHL'S SOLN PO (07:12)
[2024-09-16] MEDS: METOCLOPRAMIDE HCL 10 MG/2 ML VIAL IVP (07:12)
[2024-09-16] MEDS: CEFAZOLIN SODIUM/DEXTROSE,ISO 2 GM/50 ML PIGGYBACK IV ×2 (08:28→15:42)
[2024-09-16] MEDS: CEFAZOLIN SODIUM/DEXTROSE,ISO 1 GM/50 ML PREMIX IV (08:28)
--- NOTE | 2024-09-16 09:39 | PM.ONB ---
Brief Operative Note Date of procedure: 09/16/24 Pre-op diagnosis general: iup at 36 5/7wks, gdma1, twin gestation Post-op diagnosis: same as pre-op Procedure: NAME OF PROCEDURE: [ section ] PROCEDURE: Patient was taken back to the Operating Room where she was given a spinal anesthesia with Duramorph without difficulty. She was prepped and draped in the normal sterile fashion. A Pfannenstiel skin incision was then made 2 cm above the symphysis pubis and carried down to underlying rectus fascia using a Bovie. The fascia was incised in the midline and extended laterally using Whitaker scissors. Two Arya clamps were placed on the superior aspect of the fascia and dissected off the underlying rectus muscles. The same was performed on the inferior aspect as well. The muscles were then in the midline. Peritoneum was identified and entered bluntly. The peritoneum was then extended superiorly and inferiorly with good visualization of the bladder. The bladder blade was inserted. A low transverse incision was made on the patient's uterus and extended laterally digitally. The infant a was then delivered atraumatically after the bladder blade was removed in the cephalic position. The cord was clamped and cut. Cord blood was obtained. The was handed off to awaiting team. b was delivered in cephalic presentation, double clamp was placed on twin a, and single clamp on twin b, single clamp was placed on twin b placental cord. The patient's placenta was spontaneously delivered. The uterus was then exteriorized. The uterus was cleared of all clots and debris. The bladder blade was reinserted. The patient's uterine incision was closed using #0 Vicryl in a running lock fashion. Excellent hemostasis was assured. The uterus was then returned to the patient's abdomen. The patient's abdomen was copiously irrigated using warm saline. Peritoneal gutters were cleared of all clots and debris. Again excellent hemostasis was assured. The patient's peritoneum was closed using 3-0 Vicryl in a running fashion. The patient's fascia was closed using #0 Vicryl in a running fashion. The patient's skin was closed using 4-0 Vicryl subcuticularly. The patient tolerated the procedure well. Sponge, lap, and needle counts were correct x2. The patient was taken to the Recovery Room in stable condition. Surgeon: Dhruv Recinos Scrap Crane Operator: María Morales Estimated blood loss (mL): 575 Pathology: other (placenta) Condition: stable Disposition: PACU Urinary Catheter Management Urinary Catheter Management Urethral: Cath placed during this visit: no
--- NOTE | 2024-09-16 09:43 | PM.OBPRCCS ---
Procedure Pre-op/Post-op diagnoses: Pre-Op/Post-Op Diagnoses Operation Date: 09/16/24 08:00 <No data on this case meets the specified criteria> Procedure: Procedures Operation Date: 09/16/24 08:00 Actual Procedure Side Surgeon p Primary with Twins Not Applicable Dhruv Recinos DO Screw Machine Tender: María Morales Estimated blood loss (mL): 575 Disposition: PACU Anesthesia type: Spinal
[2024-09-16 17:16] LABS: Glucose Urine UA NEGATIVE (NEGATIVE)
[2024-09-16 17:33] LABS: Cast Seen? NONE SEEN #/LPF (NONE SEEN); Crystals Seen? Seen #/HPF (None Seen); Urine Culture Indicated YES-LC
[2024-09-16] MEDS: KETOROLAC TROMETHAMINE 30 MG/ML VIAL IVP (21:07)
[2024-09-16] MEDS: ENOXAPARIN SODIUM 40 MG/0.4 ML SYRINGE SUBQ (21:08)
[2024-09-17 00:32] VITALS: BP 126/79; PULSE 70; TEMP 36.4; O2SAT 100
[2024-09-17 04:54] VITALS: BP 124/78; PULSE 72; TEMP 36.8
[2024-09-17 07:14] LABS: Hematocrit 28.3 % (36.0-48.0); Hemoglobin 9.1 g/dL (12.0-16.0); Immature Granulocytes Abs Auto 0.05 10^3/uL (0.00-0.03); Immature Granulocytes Pct Auto 0.5 % (0.0-0.5); Lymphocytes Absolute Auto 2.3 10^3/uL (1.2-3.8); Mean Corpuscular HGB Conc 32.2 g/dL (29.9-35.2); Mean Corpuscular Hemoglobin 26.0 pg (26.7-34.0); Mean Corpuscular Volume 80.9 fL (81.0-99.0); Platelet Count 129 10^3/uL (150-450); Red Blood Count 3.50 10^6/uL (4.20-5.40); White Blood Count 10.2 10^3/uL (4.0-11.0)
--- NOTE | 2024-09-17 07:53 | PM.OBPN ---
OB - PN: Subj Subjective Patient comments: no complaints and pain well controlled [place] status: doing well Exam Constitutional Vital Signs, click to edit/add: Last Vital Signs Temp 98.2 F 09/17/24 04:54 Pulse 72 09/17/24 04:54 Resp 18 09/17/24 04:54 BP 124/78 09/17/24 04:54 Pulse Ox 100 09/17/24 00:32 O2 Del Method Room Air 09/17/24 05:01 Documenting provider has reviewed patient's vital signs: yes Common normals: no apparent distress Respiratory Common normals: normal respiratory effort and clear to auscultation bilaterally Cardio Common normals: regular rate and regular rhythm GI Common normals: Normal to inspection, nondistended, normoactive bowel sounds present Extremity Common normals: no clubbing, cyanosis or edema and no calf tenderness Results Labs Labs: Short CBC 09/17/24 Range/Units 06:48 WBC 10.2 (4.0-11.0) 10^3/uL Hgb 9.1 L (12.0-16.0) g/dL Hct 28.3 L (36.0-48.0) % Plt Count 129 L (150-450) 10^3/uL Urine 09/16/24 Range/Units 06:00 Urine Color Lt. yellow (YELLOW) Urine Clarity Sl cloudy (CLEAR) Urine pH 6.0 (5.0-9.0) Ur Specific [place] 1.025 (1.005-1.025) Urine Protein 30 A (NEG/TRACE) mg/dL Urine Glucose (UA) Negative (NEGATIVE) mg/dL Urinary Catheter Management Urinary Catheter Management Urethral: Cath placed during this visit: no OB - PN: A/P Assessment and Plan (1) Twin : Plan - day: 1 Plan: routine postop care Time Spent with Patient Time: Total time spent is greater than 50% in coordination of care (as documented) at patient's floor/unit and/or counseling patient: Total time spent with greater than 50% in coordination of care (as documented) at patient's floor/unit and/or counseling patient: less than 15 minutes
[2024-09-17] MEDS: KETOROLAC TROMETHAMINE 30 MG/ML VIAL IVP ×2 (08:40→15:03)
[2024-09-17] MEDS: DOCUSATE SODIUM 100 MG CAPSULE PO ×2 (08:41→21:18)
[2024-09-17 08:45] VITALS: BP 98/66; PULSE 79; TEMP 37.2
--- NOTE | 2024-09-17 13:38 | SWNOTE1 ---
SW consulted for drug use (THC) during . SW attempted to see pt 2x today, pt had family in room visiting. SW to meet with pt later today or tomorrow morning.
[2024-09-17] MEDS: RHO(D) IMMUNE GLOBULIN 1,500 UNIT SYRINGE 1500 UNIT IV (14:10)
[2024-09-17 14:20] VITALS: BP 106/75; PULSE 82; TEMP 37.3
[2024-09-17] MEDS: ENOXAPARIN SODIUM 40 MG/0.4 ML SYRINGE SUBQ (21:18)
[2024-09-17] MEDS: SERTRALINE HCL 100 MG TABLET PO (21:18)
[2024-09-17] MEDS: IBUPROFEN 400 MG TABLET 800 MG PO (21:18)
[2024-09-18 00:54] VITALS: BP 134/87; PULSE 81; TEMP 37.1
[2024-09-18] MEDS: IBUPROFEN 400 MG TABLET 800 MG PO ×3 (06:48→23:49)
--- NOTE | 2024-09-18 08:34 | SWNOTE1 ---
SW stopped in to speak with pt in regards to Marijuana use. Pt's mother and father sleeping on couch in room. Pt did admit to smoking Marijuana during . She voiced it helped her sleep and eat. She does not plan on continuing use once she is home. She does not have a medical Marijuana card. Pt voiced she has everything she needs at home for the babies. Father of the baby is not in the picture. She does live at home with a roommate. Her roommate does have 2 kids of her own, they are 7 and 2. She did tell SW that the father of her babies is also the father of her roommates 2 year old child. She voiced it was a weird situation, but they have made it work. 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 SW asked if she has or plans to contact WIC? She voiced she has not yet, but she will be doing that. VENANCIO advised pt that SW is mandated fireworks display specialist and has to call CPS and make report in regards to THC use. Pt voiced understanding and no further questions at this time. Pt is caring for babies appropriately. HIPAA form filled out and sent to [facility]. VENANCIO called report in to [facility] CPS.
[2024-09-18 09:34] VITALS: BP 121/71; PULSE 77; TEMP 36.6
[2024-09-18] MEDS: DOCUSATE SODIUM 100 MG CAPSULE PO ×2 (09:49→21:04)
--- NOTE | 2024-09-18 10:50 | P.OBPN_ITS ---
OB - PN: Subj Subjective Patient comments: no complaints and pain well controlled [place] status: doing well Exam Constitutional Vital Signs, click to edit/add: Last Vital Signs Temp 98.8 F 09/18/24 00:54 Pulse 77 09/18/24 09:34 Resp 16 09/18/24 00:54 BP 121/71 09/18/24 09:34 Pulse Ox 100 09/17/24 00:32 O2 Del Method Room Air 09/18/24 00:54 Documenting provider has reviewed patient's vital signs: yes Common normals: no apparent distress Respiratory Common normals: normal respiratory effort and clear to auscultation bilaterally Cardio Common normals: regular rate and regular rhythm GI Common normals: Normal to inspection, nondistended, normoactive bowel sounds present Extremity Common normals: no clubbing, cyanosis or edema and no calf tenderness Urinary Catheter Management Urinary Catheter Management Urethral: Cath placed during this visit: no OB - PN: A/P Assessment and Plan (1) Twin : Plan - day: 2 Plan: routine postop care Time Spent with Patient Time: Total time spent is greater than 50% in coordination of care (as documented) at patient's floor/unit and/or counseling patient: Total time spent with greater than 50% in coordination of care (as documented) at patient's floor/unit and/or counseling patient: less than 15 minutes
[2024-09-18 17:03] VITALS: BP 120/79; PULSE 77
[2024-09-18 17:05] VITALS: TEMP 36.8
[2024-09-18 18:53] VITALS: O2SAT 100
[2024-09-18] MEDS: ENOXAPARIN SODIUM 40 MG/0.4 ML SYRINGE SUBQ (21:04)
[2024-09-18] MEDS: SERTRALINE HCL 100 MG TABLET PO (21:05)
[2024-09-18 23:47] VITALS: BP 118/59; PULSE 80; TEMP 36.9
--- NOTE | 2024-09-19 08:38 | PM.OBPN ---
OB - PN: Subj Subjective Patient comments: no complaints [place] status: doing well feeding status: breast and bottle feeding Exam Constitutional Vital Signs, click to edit/add: Last Vital Signs Temp 98.5 F 09/18/24 23:47 Pulse 80 09/18/24 23:47 Resp 18 09/18/24 18:53 BP 118/59 09/18/24 23:47 Pulse Ox 100 09/18/24 18:53 O2 Del Method Room Air 09/18/24 23:46 Documenting provider has reviewed patient's vital signs: yes Common normals: no apparent distress Exam limitations: altered mental status General appearance: cooperative Orientation/consciousness: Yes awake, Yes oriented to person, Yes oriented to place and Yes oriented to time HENMT Common normals: normocephalic Eye Common normals: EOMs intact bilaterally General eye: normal appearance of both eyes Neck & C-Spine Common normals: full ROM Lymph Lymphatic: no lymphadenopathy noted Chest Common normals: inspection of chest normal Respiratory Common normals: normal respiratory effort Effort & inspection: able to speak in complete sentences Auscultation: clear to auscultation bilaterally Cardio Common normals: regular rate and regular rhythm Rate: regular rate Rhythm: regular rhythm GI Common normals: Normal to inspection, nondistended, normoactive bowel sounds present Palpation: soft Common normals: no CVA tenderness Back & Pelvis Common normals: no CVA tenderness Thoracic spine/upper back: normal to inspection Extremity Common normals: normal to inspection Neuro Common normals: oriented x3 Sensorium/orientation: awake, alert, oriented to person, oriented to place and oriented to time Psych Common normals: mental status grossly normal, thought process normal, cooperative, affect normal, speech normal, activity/motor behavior normal, denies hallucinations, denies homicidal ideation and denies suicidal ideation Appearance: grossly normal Attitude: calm Urinary Catheter Management Urinary Catheter Management Urethral: Cath placed during this visit: no OB - PN: A/P Assessment and Plan (1) Twin : Qualifiers: Multiple gestation type: monochorionic and diamniotic Plan - day: 3 Plan: discharge home Time Spent with Patient Time: Total time spent is greater than 50% in coordination of care (as documented) at patient's floor/unit and/or counseling patient: Total time spent with greater than 50% in coordination of care (as documented) at patient's floor/unit and/or counseling patient: less than 15 minutes
[2024-09-19 09:30] VITALS: O2SAT 100
[2024-09-19] MEDS: DOCUSATE SODIUM 100 MG CAPSULE PO (10:18)
[2024-09-19] MEDS: IBUPROFEN 400 MG TABLET 800 MG PO (10:18)
[2024-09-19 10:50] VITALS: BP 123/70; PULSE 83
[2024-09-19] MEDS: MEASLES,MUMPS,RUBELLA VACC/PF 0.5 ML VIAL SQ (14:47)
[2024-09-19 22:07] LABS: Carboxy THC Conf, MS, UR 142 ng/mL (Cutoff=10)
== END 2024-09-19 15:15 | disposition home or self-care (01) | DRG 540 ==
PROVIDERS: Admitting Provider Obstetrics & Gynecology; PCP Family Medicine; Visit Provider Obstetrics & Gynecology
PROC: 10D00Z1 Extraction of Products of Conception, Low, Open Approach (ICD-10-PCS; CPT 59514; principal; 2024-09-16 08:00)
DX: O30.033 Twin pregnancy, monochorionic/diamniotic, third trimester (principal); O24.425 Gestational diabetes mellitus in childbirth, controlled by oral hypoglycemic drugs; Z3A.36 36 weeks gestation of pregnancy; Z37.2 Twins, both liveborn; O26.893 Other specified pregnancy related conditions, third trimester; Z67.41 Type O blood, Rh negative; O99.324 Drug use complicating childbirth; F12.90 Cannabis use, unspecified, uncomplicated; Z90.49 Acquired absence of other specified parts of digestive tract; O99.214 Obesity complicating childbirth; E66.01 Morbid (severe) obesity due to excess calories
CPT/HCPCS: 36415; 59050; 80307; 80349; 81001; 85025; 85461; 86850; 86900; 86901; 87077; 87086; 87186; 88307; 90707; 94667; 94668; J0690; J1100; J1650; J1885; J2274; J2371; J2405; J2590; J2765; J2791; J3490

== ENCOUNTER 2024-09-25 08:05 | Outpatient (OUT) | payer OTHER, SELFPAY ==
--- OUTSIDE RECORDS SUMMARY | 2024-09-25 08:30 | XMS_ITS | CCD ---
Author Organization [facility] Care Team Providers Care Senior Benefits Specialist Name Role Phone Edith Ford Primary Care [...] Unavailable EILEEN ., JOURDAN Attending Unavailable TALYA REYNA Consulting Unavailable SHADY, DR TEJADA Consulting Unavailable [...] Jorje D.O., Dhruv R. Primary Care Provider [phone] NICHOLE HYDE Attending Unavailable AYAH LYNN Referring Unavailab le JORJE, DHRUV R. Primary Care Unavailable JORJE, DHRUV R. Primary Care Unavailable MARY MENDEZ Attending Unavailable DOCHEVA, NIKOLINA P. Referring Unavailable NICHOLE HYDE Attending Unavailable JORJE, DHRUV R. Primary Care Unavailable DOCHEVA, NIKOLINA P. Referring Unavailable AYAH LYNN Attending Unavailab barry MENDESMEENU Attending Unavailable AYAH LYNN Referring Unavailab le JORJE, DHRUV R. Primary Care Unavailable TALYA REYNA Referring Unavailable JORJE, DHRUV R Referring Unavailable Marker Cici DÍAZ Attending Provider [phone] TALYA REYNA Referring Unavailable DOCHEVA, KVNG P Attending Unavailable AXELTALYA SANTILLAN Referring Unavailable JORJE, DHRUV R Referring Unavailable JORJE, DHRUV R Referring Unavailable DOCHEVA, NIKOLINA P Attending Unavailable AXELTALYA SANTILLAN L Referring Unavailable JORJE, DHRUV R Referring Unavailable DOCHEVA, NIKOLINA P Attending Unavailable JORJE, DHRUV R Referring Unavailable JORJE, DHRUV R Referring Unavailable JORJE, DHRUV R Referring Unavailable AMERICO REDDY Attending Unavailable JORJE, DHRUV R Referring Unavailable JORJE, DHRUV R Referring Unavailable JORJE, DHRUV R Referring Unavailable JORJE, DHRUV R Referring Unavailable JORJE, DHRUV R Referring Unavailable IVON HUYNH Attending Unavailable JORJE, DHRUV R Referring Unavailable Jorje Luh DÍAZy Attending Provider JorjeuLh fishery Attending Unavailable Jorje, Dhruv Admitting Unavailable Marker, Cici Gama Attending Unavailable Marker, Cici Gama Admitting Unavailable JORJE, DHRUV Attending Unavailable AXEL, TALYA Attending Unavailable JORJE, DHRUV Attending Unavailable AXEL, TALYA Attending Unavailable JORJE, DHRUV Attending Unavailable AXEL, TALYA Attending Unavailable JORJE, DHRUV Attending Unavailable JORJE, DHRUV Attending Unavailable AXEL, TALYA Attending Unavailable Allergies Allergy Classification Reported Allergen(s) Allergy Type Date of Onset Reaction(s) Facility Theophylline (1 source) Theophylline Drug Allergy 1 [facility] (20 sources) SUMAtriptan; Translations: [sumatriptan] Drug Allergy 7 Pharyngeal swelling (finding), Shortness of breath [facility] (18 sources) Theophylline; Translations: [theophylline] Drug Allergy 5 Hives, [facility] (1 source) Theophylline Drug Allergy 9 [facility] Repository (20 sources) Theophyllines; Translations: [THEOPHYLLINES] Drug Intolerance 1 Hives, [facility] (1 source) SUMAtriptan; Translations: [SUMATRIPTAN SUCCINATE] Drug Allergy 7 [facility] Repository (1 source) Theophylline Drug Allergy 1 [facility] Repository Medications Current Medications Medication Drug [...] Monitoring Suppl ([facility] Blood Glucose Meter) device (8 sources) Start: 08-28-2024 Blood Glucose Monitoring Suppl ([facility] Blood Glucose Meter) device Indications: Gestational diabetes mellitus (GDM), antepartum, gestational diabetes method of control unspecified ([facility]) , Elevated glucose tolerance test 1 kit in the morning and 1 kit at noon and 1 kit in the evening and 1 kit before bedtime. 1 each 08/28/2024 Active cyclobenzaprine hydrochloride 10 mg oral tablet (3 sources) Muscle Relaxant Start: 06-29-2020 take 1 tablet by mouth three times daily as needed for muscle spasms diclofenac sodium 75 mg delayed release oral tablet (3 sources) Nonsteroidal Anti-inflammatory Drug Start: 06-29-2020 take 1 tablet by mouth twice daily as needed for pain ferrous sulfate 325 mg oral tablet (2 [...] Active isopropyl alcohol 0.7 ml/ml medicated pad (8 sources) Start: 08-28-2024 Alcohol Swabs (Alcohol Prep Pad) 70 % pads Indications: Gestational diabetes mellitus (GDM), antepartum, gestational diabetes method of control unspecified ([facility]) , Elevated glucose tolerance test Apply 1 Pad topically Daily Use four times daily to check FSBS. 150 each 3 08/28/2024 Active lidocaine 0.05 mg/mg medicated patch (3 sources) Antiarrhythmic, Amide Local Anesthetic Start: 06-29-2020 apply 1 dose topically once daily as needed for pain magnesium oxide 400 mg oral tablet (9 [...] polysaccharide iron complex 391 mg oral capsule (10 sources) Start: 08-21-2024 End: 09-20-2024 take 1 capsule by mouth once daily iron polysaccharides (ProFe) 391.3 (180 Fe) MG capsule Indications: Other iron deficiency anemia Take 1 capsule (391.3 mg) by mouth Daily 30 capsule 6 08/21/2024 09/20/2024 Active Vit w/Sn-Yxulmowkq-SH (PNV PO) (1 source) Vit w/Mw-Qbehpjdtb-FF (PNV PO) Take by mouth. Active Vit-Fe Fumarate-FA ( Vitamins) 28-0.8 MG tablet (20 sources) Start: 03-08-2024 End: 03-08-2025 take 1 tablet by mouth once daily Vit-Fe Fumarate-FA ( Vitamins) 28-0.8 MG tablet Indications: , unspecified gestational age ([facility]) , Encounter for supervision of normal first in first trimester ([facility]) Take 1 tablet by mouth Daily [...] [Chest pain, unspecified] Onset: 01-20-2022 Episodic Other aftercare (2 sources) Postoperative visit; Translations: [Encounter for other specified surgical aftercare] 09-23-2024 Episodic Other and ill-defined heart disease (1 [...] Residual codes; unclassified (2 sources) Gestation period, 36 weeks; Translations: [36 weeks gestation of ] 09-12-2024 Episodic Spondylosis; intervertebral disc disorders; other back problems (4 sources) Pain in thoracic spine; Translations: [Dorsalgia, unspecified] Onset: 03-13-2022 Episodic Sprains and strains (4 sources) Strain of thoracic region; Translations: [Strain [...] 12-01-2021 Episodic Other aftercare (1 source) Other keno terminal operator (current) drug therapy; Translations: [OTH [facility] CURRENT DRUG THERAPY] Onset: 01-24-2022 Episodic Other aftercare (1 source) supervisor intermediates (current) use of oral hypoglycemic drugs; Translations: [EQUINE INTERNSHIP USE ORAL HYPOGLYCEMIC DX] Onset: 12-22-2021 Episodic [...] NEGATED: Highlighted row has been ruled out!Unclassified (20 sources) No known active problems 06-29-2023 Results Test Name Value Interpretation Reference Range Facility ALL CBC WITH AUTO DIFFon BASOPHILS ABSOLUTE AUTO 0 [facility] Basophils/100 WBC (Bld) 0.3 % 0.2 - 2.0 % [facility] Eosinophils/100 WBC (Bld) 0.9 % 0.9 - 7.0 % [facility] Erythrocyte distribution width (RBC) [Ratio] 16.6 % High 11.0 - 15.0 % [facility] Hematocrit (Bld) [Volume fraction] 28.3 % Low 36.0 - 48.0 % [facility] Hemoglobin (Bld) [Mass/Vol] 9.1 g/dL Low 12.0 - 16.0 g/dL [facility] IMMATURE GRANULOCYTES ABS AUTO 0.05 High [facility] Immature granulocytes/100 WBC (Bld) 0.5 % 0.0 - 0.5 % [facility] Interpretation and review of laboratory results [facility] LYMPHOCYTES ABSOLUTE AUTO 2.3 [facility] Lymphocytes/100 WBC (Bld) 22.7 % 20.5 - 60.0 % [facility] MCH (RBC) [Entitic mass] 26 pg Low 26.7 - 34.0 pg [facility] MCHC (RBC) [Mass/Vol] 32.2 g/dL 29.9 - 35.2 g/dL [facility] MCV (RBC) [Entitic vol] 80.9 fL Low 81.0 - 99.0 fL [facility] MONOCYTES ABSOLUTE AUTO 0.6 [facility] Monocytes/100 WBC (Bld) 5.6 % 1.7 - 12.0 % [facility] NEUTROPHILS ABSOLUTE AUTO 7.1 High [facility] Neutrophils/100 WBC (Bld) 70 % 43.0 - 75.0 % [facility] Platelet mean volume (Bld) [Entitic vol] 13.6 fL High 9.5 - 13.5 fL [facility] TBH EO # 0.1 [facility] PLT 129 Low [facility] e TB RBC 3.5 Low [facility] TB WBC 10.2 [facility] ALL CBC WITH AUTO DIFFon BASOPHILS ABSOLUTE AUTO 0 [facility] Basophils/100 WBC (Bld) 0.3 % 0.2 - 2.0 % [facility] Eosinophils/100 WBC (Bld) 0.7 % Low 0.9 - 7.0 % [facility] Erythrocyte distribution width (RBC) [Ratio] 16.4 % High 11.0 - 15.0 % [facility] Hematocrit (Bld) [Volume fraction] 34 % Low 36.0 - 48.0 % [facility] Hemoglobin (Bld) [Mass/Vol] 11 g/dL Low 12.0 - 16.0 g/dL [facility] IMMATURE GRANULOCYTES ABS AUTO 0.04 High [facility] Immature granulocytes/100 WBC (Bld) 0.4 % 0.0 - 0.5 % [facility] Interpretation and review of laboratory results [facility]normal [facility] LYMPHOCYTES ABSOLUTE AUTO 2.1 [facility] Lymphocytes/100 WBC (Bld) 18.7 % Low 20.5 - 60.0 % [facility] MCH (RBC) [Entitic mass] 25.9 pg Low 26.7 - 34.0 pg [facility] MCHC (RBC) [Mass/Vol] 32.4 g/dL 29.9 - 35.2 g/dL [facility] MCV (RBC) [Entitic vol] 80.2 fL Low 81.0 - 99.0 fL [facility] MONOCYTES ABSOLUTE AUTO 0.6 [facility] Monocytes/100 WBC (Bld) 5.2 % 1.7 - 12.0 % [facility] NEUTROPHILS ABSOLUTE AUTO 8.3 High [facility] Neutrophils/100 WBC (Bld) 74.7 % 43.0 - 75.0 % [facility] Platelet mean volume (Bld) [Entitic vol] 13.4 fL 9.5 - 13.5 fL [facility] TBH EO # 0.1 [facility] TBH PLT 170 [facility] TB RBC 4.24 [facility] TBH WBC 11.1 High [facility] Jt 09-16-2024 L - -------- Specimen: [id number] Received: 09/16/24 Status: JORDAN Mosqueda Num: [id number] Spec Type: Surgical Subm Dr: Dhruv Recinos Tissues: A Placenta - 3rd Trimester (Greater than 28 weeks) (PLACENTA A) B Placenta - 3rd Trimester (Greater than 28 weeks) (PLACENTA B) Procedures: , Gross/Micro L5/2 -------- Age/ Patient Sex Location Account Attending Physician -------- Juan Diego Romero / LABELL [id number] Dhruv Recinos -------- SPEC NUM: [id number] RECD: 09/16/24 STATUS: JORDAN MOSQUEDA NUM: [id number] J CARLOS: 09/16/24 [facility] DR: Dhruv Recinos ENTERED: 09/16/[address] [facility] [address]: Shubham,Lab SPEC TYPE: Surgical DEPT: KELLEY PEREA ENTERED BY: [id number] RECV BY: [id number] ORDERED: , Gross/Micro L5/2 ORDERED: , Gross/Micro L5/2 Pathological Diagnosis Monochorionic diamniotic twin placenta (weight: 888 grams), clinically 36.5 weeks gestational age, delivery: Placenta A: - Three-vessel short umbilical cord (16 cm in length) with no evidence of acute funisitis identified. - membranes with pigment-laden macrophages consistent with meconium staining - Histologically mature third trimester placental disc with no significant histopathology. Placenta B: - Three-vessel short umbilical cord (17 cm in length) with no evidence of acute funisitis identified. - membranes with pigment-laden macrophages consistent with meconium staining - Histologically mature third trimester placental disc with subchorionic hemorrhage. Clinical Information Monochorionic diamniotic twin placenta at 36 weeks and 5 days, : 1, parity: 1 Gross Description Received in formalin labeled with the patients name, date of , and placenta : Fused twins - there is a single placental disc with two umbilical cords, divided by a septum and T-Zone. One of the cords displays a single clamp; however, no orientation is provided. The single clamped cord is designated as Baby A with the non-clamped cord -------- Specimen: [id number] Received: 09/16/24 Status: JORDAN Mosqueda Num: [id number] Spec Type: Surgical Subm Dr: Dhruv Recinos Tissues: A Placenta - 3rd Trimester (Greater than 28 weeks) (PLACENTA A) B Placenta - 3rd Trimester (Greater than 28 weeks) (PLACENTA B) Procedures: HE/Denisse, Gross/Micro L5/2 -------- Patient: Juan Diego Romero [id number] (Continued) -------- Specimen: [id number] Received: 09/16/24 (Continued) Gross Description (Continued) Signed (signature on file) Polo Ring MD 09/19/24 1713 -------- Specimen: [id number] Received: 09/16/24 Status: JORDAN Mosqueda Num: [id number] Spec Type: Surgical Subm Dr: Dhruv Recinos Tissues: A Placenta - 3rd Trimester (Greater than 28 weeks) (PLACENTA A) B Placenta - 3rd Trimester (Greater than 28 weeks) (PLACENTA B) Procedures: Jasmyn HARRISON/Jayy L5/2 -------- Patient: Juan Diego Romero [id number] (Continued) -------- Specimen: [id number] Received: 09/16/24-9303 (Continued) Gross Description (Continued) designated as baby B. MEMBRANES: Placenta Sac Rupture (cm from margin): Baby A: Marginal Baby B: Through the septum Color: Blue-stone Other Characteristics: Partially stripped amnion Insertion Site: Marginal 100% CORD: Appearance: Unremarkable Site of Insertion: Baby A: Eccentric, 4.5 cm from the margin Baby B: Marginal Length Diameter (cm): Baby A: 16 x 1.3 cm Baby B: 17 x 1.2 cm Number of revolutions: Baby A : 9 Baby B: 5 cm True Knots: No Number of vessels: Baby A: 3 Baby B: 3 GENERAL: Trimmed Weight (grams): 888 grams Complete: Yes Size 1 x Size 2 x Size 3 (cm): 28 x 19.5 x 2.7 cm Baby A: 19.5 x 9 x 2.7 cm Baby B: 22.5 x 19.5 x 2.7 cm Accessory Lobe(s): No PLACENTAL DISK: Color of Surface: Blue-stone Sub-amniotic Cyst: No Amnion Nodosum: No Subchorionic Fibrin: Yes, up to 0.3 cm in thickness, less than 5% Appearance of Cut Surface: Unremarkable Maternal floor: Unremarkable Retroplacental hematoma: Baby A: Unremarkable Baby B: There is a single, paramarginally located, 1.3 cm in greatest dimension subchorionic hematoma (less than (more content not included)... Normal [facility] Urinalysis macro (dipstick) panel (U)on 09-12-2024 Bilirubin, UA Negative Negative - 4(70) +++ mg/dL [facility] Blood, UA Positive Negative - 50 Duane/mcL [facility] Comment on above: Trace Clarity, UA Clear [facility] re Color, UA Yellow [facility] Glucose, UA Negative Negative - 1999(110) ++++ mg/dL [facility] Interpretation and review of laboratory results Abnormal [facility] re Ketones, UA Negative Negative - 160(16) ++++ mg/dL [facility] Leukocytes, UA Moderate Negative - 500+++ Belinda/mcL [facility] Nitrite, UA Negative Negative - Positive [facility] pH, UA 6.5 5 - 9 [facility] Protein, UA Trace Negative - 1999(20) ++++ mg/dL [facility] Spec Grav, UA 1.015 1 - 1.03 [facility] Urobilinogen, UA 0.2 0.2 - 12 mg/dL [facility] GLUCOSE TOLERANCE 3 HOURon 0 08-28-2024 GLUCOSE TOLERANCE 3 HOUR High mg/dL [facility] Comment on above: GLU FAST 95H (<95) C ol: 08/28/24 0712 GLU 1HR 174 (<180) Col: 08/28/24 0814 GLU 2HR 173H (<155) Col: 08/28/24 0916 GLU 3HR 114 (<140) Col: 08/28/24 1018 Interpretation and review of laboratory results Abnormal [facility] Urinalysis macro (dipstick) panel (U)on 08-21-2024 Bilirubin, UA Negative Negative - 4(70) +++ mg/dL [facility] Blood, UA Negative Negative - 50 Duane/mcL [facility] Clarity, UA Clear [facility] re Color, UA Yellow [facility] Glucose, UA Negative Negative - 1999(110) ++++ mg/dL [facility] Interpretation and review of laboratory results Abnormal [facility] Ketones, UA Positive Negative - 160(16) ++++ mg/dL [facility] Leukocytes, UA Moderate Negative - 500+++ Belinda/mcL [facility] Nitrite, UA Negative Negative - Positive [facility] pH, UA 7 5 - 9 [facility] Protein, UA Negative Negative - 1999(20) ++++ mg/dL [facility] Spec Grav, UA 1.02 1 - 1.03 [facility] Urobilinogen, UA 0.2 0.2 - 12 mg/dL [facility] Urinalysis macro (dipstick) panel (U)on 08-05-2024 Bilirubin, UA Negative Negative - 4(70) +++ mg/dL [facility] Blood, UA Negative Negative - 50 Duane/mcL [facility] Clarity, UA Clear [facility] Color, UA Yellow [facility] Glucose, UA Negative Negative - 1999(110) ++++ mg/dL [facility] Interpretation and review of laboratory results Abnormal [facility] re Ketones, UA Negative Negative - [...] bacterial skin contaminants 2 Days PERFORMED BY: [facility] [address] [place] [address] PATHOLOGIST JOB DEVELOPER FRANCIA GÓMEZ M.D. Normal [facility] Comment on above: Performed By: #### C UU #### [facility] [address] Urine cultureOrdered By: Sarah perrya Marker on 07-30-2024 Bacteria identified Cx Nom (U) 2 Days [facility] GLUCOSE 1 HOURon 07-16-2024 Glucose [Mass/Vol] 157 mg/dL High NINF - 13 0 mg/dL [facility] Interpretation and review of laboratory results Abnormal [facility] Urinalysis macro (dipstick) panel (U)on 06-26-2024 Bilirubin, UA Negative Negative - 4(70) +++ mg/dL [facility] Blood, UA Negative Negative - 50 Duane/mcL [facility] Clarity, UA Clear [facility] Color, UA Yellow [facility] Glucose, UA Negative Negative - 1999(110) ++++ mg/dL [facility] Interpretation and review of laboratory results Abnormal [facility] Ketones, UA Negative Negative - 160(16) ++++ mg/dL [facility] Leukocytes, UA Trace Negative - 500+++ Belinda/mcL [facility] Nitrite, UA Negative Negative - Positive [facility] pH, UA 7.5 5 - 9 [facility] Protein, UA Negative Negative - 1999(20) ++++ mg/dL [facility] Spec Grav, UA 1.02 1 - 1.03 [facility] Urobilinogen, UA 0.2 0.2 - 12 mg/dL [facility] ECHOCARDIO[facility] FETALon 05-31 ECHOCARDIOGRAM [facility] [address] [place] [id number] ECHOCARDIOGRAM REPORT Name: JUAN DIEGO ROMERO : 2000 ALT. ID: Age: 23 years Study Date: 05/31/2024 12:45:12 PM Patient Class: Outpatient Patient Location: [facility] Referring Physician: [facility] Diagnosing Physician: [id number] Meenu Mendes MD Lining Maker: Marita Ko [facility] Procedure type: Complete [id number], Complete Doppler and Spectral Doppler-41570, Color Doppler-04195, Umbilical Doppler-12919 and Multiple Gestation (Twins). Reason for test: [...] and Pulm (more content not included)... Normal [facility] Urinalysis macro (dipstick) panel (U)on 04-09-2024 Bilirubin, UA Negative Negative - 4(70) +++ mg/dL [facility] Blood, UA Negative Negative - 50 Duane/mcL [facility] Clarity, UA Clear [facility] re Color, UA Yellow [facility] e Glucose, UA Negative Negative - 1999(110) ++++ mg/dL [facility] Interpretation and review of laboratory results Abnormal [facility] re Ketones, UA Negative Negative - 160(16) ++++ mg/dL [facility] Leukocytes, UA Positive Negative - 500+++ Belinda/mcL [facility] Comment on above: large Nitrite, UA Negative Negative - Positive [facility] pH, UA 7 5 - 9 [facility] Protein, UA Trace Negative - 1999(20) ++++ mg/dL [facility] Spec Grav, UA 1.02 1 - 1.03 [facility] Urobilinogen, UA 0.2 0.2 - 12 mg/dL [facility] ALL CBC WITH AUTO DIFFon BASOPHILS ABSOLUTE AUTO 0 [facility] Basophils/100 WBC (Bld) 0.3 % 0.2 - 2.0 % [facility] Eosinophils/100 WBC (Bld) 0.9 % 0.9 - 7.0 % [facility] Erythrocyte distribution width (RBC) [Ratio] 14.1 % 11.0 - 15.0 % [facility] IMMATURE GRANULOCYTES ABS AUTO 0.05 High [facility] Immature granulocytes/100 WBC (Bld) 0.4 % 0.0 - 0.5 % [facility] Interpretation and review of laboratory results [facility]normal [facility] LYMPHOCYTES ABSOLUTE AUTO 2.6 [facility] Lymphocytes/100 WBC (Bld) 18.5 % Low 20.5 - 60.0 % [facility] MCH (RBC) [Entitic mass] 25.9 pg Low 26.7 - 34.0 pg [facility] MCHC (RBC) [Mass/Vol] 32.7 g/dL 29.9 - 35.2 g/dL [facility] MCV (RBC) [Entitic vol] 79.2 fL Low 81.0 - 99.0 fL [facility] MONOCYTES ABSOLUTE AUTO 0.6 [facility] Monocytes/100 WBC (Bld) 4 % 1.7 - 12.0 % [facility] NEUTROPHILS ABSOLUTE AUTO 10.7 High [facility] Neutrophils/100 WBC (Bld) 75.9 % High 43.0 - 75.0 % [facility] Platelet mean volume (Bld) [Entitic vol] 11.7 fL 9.5 - 13.5 fL [facility] TBH EO # 0.1 [facility] e TB PLT 302 [facility] TB RBC 4.56 [facility] e [facility] WBC 14.1 High [facility] e [facility] CBC without diffon Rbc Mcv (Fl) By Automated Count 79.2 [facility] Laboratory - Hematology and Cell countson 03-15-2024 Hematocrit (Bld) [Volume fraction] 36.1 % [facility] e Hemoglobin (Bld) [Mass/Vol] 11.8 g/dL [facility] No Panel Informationon 03-15 [facility] e Rubella IGG immune statuson 03-15-2024 Rubella immune IgG 0.9 [facility] Syphilis Total(Unknown Syphi lis Status)on 03-15-2024 Syphilis Non-Reactive [facility] Type and screenon 03-15-2024 Abo/Rh(D) Negative [facility] HCG ( test) Ql (U)o n 03-08-2024 Interpretation and review of laboratory results Abnormal [facility] re Preg Test, Ur Positive Negative [facility] Urinalysis macro (dipstick) panel (U)on 03-08-2024 Bilirubin, UA Negative Negative - 4(70) +++ mg/dL [facility] Blood, UA Negative Negative - 50 Duane/mcL [facility] Clarity, UA Clear [facility] re Color, UA Yellow [facility] Glucose, UA Negative Negative - 1999(110) ++++ mg/dL [facility] Interpretation and review of laboratory results Abnormal [facility] re Ketones, UA Negative Negative - 160(16) ++++ mg/dL [facility] Leukocytes, UA Moderate Negative - 500+++ Belinda/mcL [facility] Nitrite, UA Negative Negative - Positive [facility] pH, UA 7 5 - 9 [facility] Protein, UA Negative Negative - 1999(20) ++++ mg/dL [facility] Spec Grav, UA 1.015 1 - 1.03 [facility] Urobilinogen, UA 0.2 0.2 - 12 mg/dL [facility] Office[facility] 3 Referrals Office [id number] 1.00CD:127 Normal [facility] CULTURE URINEon 03-13-2022 CULTURE URINE Culture Observations : HEAVY GROWTH OF MIXED GENITAL TING. NO POTENTIAL PATHOGENS SEEN. Normal [facility] Comment on above: Performed By: #### C MP #### [facility] [address] [place] [address] Dr. Paz Burk ER URINE PROFILEon 3 Bilirubin Ql (U) Negative Normal NEGATIVE [facility] Comment on above: Performed By: #### P REGU, UMICRO, ERUR #### [facility] [address] [address] [address] Paz Burk Clarity (U) CLEAR Normal CLEAR [facility] Comment on above: Performed By: #### P REGU, UMICRO, ERUR #### [facility] [address] [address] [address] Paz Burk Color (U) LT. YELLOW Normal YELLOW [facility] Comment on above: Performed By: #### P REGU, UMICRO, ERUR #### [facility] [address] [address] [address] Paz STALLINGSAHD A micrscopic examination will be performed if indicated. Normal [facility] Comment on above: Performed By: #### P REGU, UMICRO, ERUR #### [facility] [address] [place] [address] Dr. Paz Burk Glucose Ql (U) Negative Normal NEGATIVE [facility] Comment on above: Performed By: #### P REGU, UMICRO, ERUR #### [facility] [address] [place] [address] Dr. Paz Burk Hemoglobin Ql (U) Negative Normal NEGATIVE [facility] Comment on above: Performed By: #### P REGU, UMICRO, ERUR #### [facility] [address] [place] [address] Dr. Paz Burk Ketones Ql (U) Negative Normal NEGATIVE [facility] Comment on above: Performed By: #### P REGU, UMICRO, ERUR #### [facility] [address] [address] [address] Paz Burk LEUKOCYTES MODERATE Abnormal NEGATIVE [facility] Comment on above: Performed By: #### P REGU, UMICRO, ERUR #### [facility] [address] [address] [address] Paz Burk Nitrite Ql (U) Negative Normal NEGATIVE [facility] Comment on above: Performed By: #### P REGU, UMICRO, ERUR #### [facility] [address] [address] [address] Paz Burk pH (U) 6.0 [pH] Normal 5-9 [facility] Comment on above: Performed By: #### P REGU, UMICRO, ERUR #### [facility] [address] [address] [address] Paz Burk SPEC GRAVITY 1.025 Normal 1.005-<=1.025 [facility] Comment on above: Performed By: #### P REGU, UMICRO, ERUR #### [facility] [address] [place] [address] Dr. Paz Burk UA PROTEIN Negative Normal NEGATIVE/ TRACE [facility] Comment on above: Performed By: #### P REGU, UMICRO, ERUR #### [facility] [address] [place] [address] Dr. Paz Burk UR MICRO IND INDICATED Normal [facility] Comment on above: Performed By: #### P REGU, UMICRO, ERUR #### [facility] [address] [place] [address] Dr. Paz Burk Urobilinogen Qn (U) 0.2 {Ara'U}/dL Normal 0.2 - 1. 0 [facility] Comment on above: Performed By: #### P REGU, UMICRO, ERUR #### [facility] [address] [place] [address] Dr. Paz Burk URon 03-13-2022 , QUAL Negative Normal NEGATIVE [facility] Comment on above: Performed By: #### P REGU, UMICRO, ERUR #### [facility] [address] [place] [address] Dr. Paz Burk URINE MICROSCOPIC ONLYon BACTERIA MODERATE Abnormal NONE SEEN [facility] Comment on above: Performed By: #### P REGU, UMICRO, ERUR #### [facility] [address] [place] [address] Dr. Paz Burk Bacteria identified Cx Nom (U) INDICATED Normal [facility] Comment on above: Performed By: #### P REGU, UMICRO, ERUR #### [facility] [address] [place] [address] Dr. Paz Burk CAST NONE SEEN Normal NONE SEEN [facility] Comment on above: Performed By: #### P REGU, UMICRO, ERUR #### [facility] [address] [address] [address] Paz Burk Crystals LM Nom (Urine sed) NONE SEEN Normal NONE SEEN [facility] Comment on above: Performed By: #### P REGU, UMICRO, ERUR #### [facility] [address] [address] [address] Paz Burk Epithelial cells LM Ql (Urine sed) MODERATE Abnormal NONE SEEN /RARE [facility] Comment on above: Performed By: #### P REGU, UMICRO, ERUR #### [facility] [address] [place] [address] Dr. Paz Burk MUCOUS TRACE Abnormal NONE SEEN [facility] Comment on above: Performed By: #### P REGU, UMICRO, ERUR #### [facility] [address] [address] [address] Paz Burk RBC 0-2 Normal 0-2 [facility] Comment on above: Performed By: #### P REGU, UMICRO, ERUR #### [facility] [address] [address] [address] Paz Burk WBC 50-75 Abnormal NONE SEEN [facility] Comment on above: Performed By: #### P REGU, UMICRO, ERUR #### [facility] [address] [address] [address] Paz Burk Coding Summary.on 03-04-2022 Coding Summary. CD:[id number] G h0bWw+PGhlYWQ+GS5DGBP lN44lzJSicU9JE7mAFJ1B HPIZKFQRAO3KJX6rzMB3U JecZ6UqtyLx NanoiTKmDP07YNa0ELL9z SrvJDlkeC0qnSHzV3m5Kc ViFD77qA59ZGlvNFPlAeS 3LjZpbjsgbWFy W1osIvWpfHGhWpg+PHRhY mxlIHdpZHRoPScxMDAlJy WxaYnoHV2kSp4xFWTbEBU vbGxhcHNlOiBj n4iaSAFqPBhpZT4ysRiaK 8SxqQB8LZOrj6s3Dt10wL I+JHBnYJR9uMlcIVtdm88 8RyWue3htMHF0 uAErJLypEWF9G53hz9A1W OWdMJKbREQ9dFD3gX1tsH wnhaxrA6WcmJCxZgA6ZSA 2oGAalJ1bvGel waemcD6nJlh+K91GGB5XO CNZEJ9JKdc2K0MnYswpyB I+ON16NLCjLR32jXZrfFE ya8gjhZf7ZlLb RURpRNR6bUqwMTsgw8GzY EVdV69xoMLuq6A1TQTdbQ fcdUFxDuLlxCY9vI8uSQq psgdks1iovrkv Raqup8gbcp19rV70M56iE XipAQScNOL0RXKnXEFyoK tanj2viI7dFf8+JWxhi3n tz5uyrFz5McUl REYmbbYeiMubDHG6e1HoC d74W3NumMuxk1XlLtp4so 93yBEyn8B1yWZ6QJvsGUW zwU5pQUwnLgN0 BDHgOkKbsM02tRYrUGgmE d0wyJogsZtgDS6kVVHozn kcVIZvyP2aLLAxsYFjeIt hKF2vLYJieird o933FwXwRWA0NRAukOWxJ 0IhfY7lPzBzVUQhIAKyT9 DqfOIlJGvlT052XIryHbE 4BRLehzWeL1Nv ICUxaFrsQyB7a0K0Xz1Ai 9LhwswpUKV6OMlyCWAfAj D5UvWgXsK8M8FdRnj6FEL vhYysIO5nA2Pg ZNMmixkxsfvaeBS4GAGfG UBhgH86xBBuJHacCe9zm2 Z7b069ZHAhLMTagX34Kj1 udDogMTBwdCBU qM1flihmu6oahgheStDqL ITsDNe7RGd3CKMlkLkzHq DoJJI3UuL8YEY2sSTagZ8 tvDrclusenD6g Oyc+U85xcK7bJWR2KRO6f uxkYHIdauDeIC00ET61E7 RyPjwvdGFibGU+PGRpdiB euJugLH0uPeHk i1aoh0EmYRhsP1RuQBJuD GisRvq1ZKOxTSQ0xIA1fB 0bLKLsSHrpj3U5nGA1I6N gysYtxp7rv9tg QLJjKMeyB06mdZDxb9P3D LWetQE6KCSrkQpzWaIgjR 93Oyc+MTZovSkxg0OlDym ps9vbc8zhaWc7 DaPuJEEzfyMgbKwuTCI6k 3GmOi93R41hRAidVHOuPX ZrMZJlBXSuvQruoq9kgF8 wIi8+PGNvbCB3 uSV7aW8zFGAuYbM9TTisT 165UxUbsLUhEinoq6twz0 nbmGe3OzWwBERlkgSzxGw qNSH4u7AkJn65 U65eQVwlCSWnIHLsIQXfU KMamNlvzy2jmB3eHw4+PC 1wp6qnmq84cI13zRY+PHR jIJK2bFpdHUco MWQmwM6oWWwnOvQ0BXQiM mNjsV76lVTyVWmnMt0kdP ufwJtvFE5jWFXthuuax47 4QqKpn5tkBENi fKJlFDvsHJT6B18gl7M2N DUdMZZsDLK1kMR6mI6shK lnbjogbGVmdDsgdmVydGl gROpjVVfqQ211 IHRvcDsnPlBhdGllbnQgT oIfSEj1I7ToSft6HBZjfP uyPI8xrMDaMKzzBp9hiJe iqYbeEB6oDYFn oiewr082EnOgu2zsIBUvl IPyUFwaYVV8W40zm6V9FY AnKNZwNFV1pRM7dM7obXe nbjogbGVmdDsg zcAmcZwzJSyqCKslH030N HRvcDsnPkJpcnRoIERhdG X0RI19MQ26oDFiy9K5uMU 9X7UbTXMpivko pwdnkQC8CMXrLOWjwT44C c5xaVwvOj7dXCUwIVR6WJ UusTQiW6BblX2iRcHqKQX lEGKjQ5LzbDCt YGrkL007JKkyGnM7FPVuv wFeC4AtZGCmiMawGkK7c9 G1Pt4DQ3V4WC88BS47yPW ut9P7dRL7O2Um OFBadlzqtxpdeWB6XZQpT ZDicK96Oj9wyYvhKb9iUQ IjXFK3CJZpcPZdP4NjwO9 yOiAjMDAwMDAw L6UkdDUuHCfkZ086IOhzQ zS2IIZfdeBuR8KkVYKlhZ trDuC2p0M6Ix8YAZp6EU0 8BS02bNDxx6G2 kVS1R4WrZWEblwlokrzul KG3UPCpFKMalU97Nq2xnV vqAd9rWXDjYBM3FMPxlTG pR2OjdW8gOaIn PEMyUSXuJ9PdgITdHMjgM 339MVlyMsS3BOMgrtWoG3 EwFJXzvTkzXmL8y4K5Vt8 PHMBqDN26NHB9 qHW6GI96VN63P7NuOtloi GFibGU+PHRhYmxlIHdpZH RoPScxMDAlJyBzdHlsZT0 nGv1aDMOlXOQz vJyaeLGlTfAei9qaKWDqE ZdrRP9zkFuxN5KtkVF7PM Zpg6u3Mn33I46qM4DnwEB +RNXoyRT9ySF7 dY5eVsPkAqM5NGxtP276P vDcnFUoKstdo9ynj8qpqI d7GsP5VTNhzhAkrKetPYM 4w9CjJu63A58p IHdpZHRoPSIxNSUiIHZhb Qszkp5qdQ1jLn4+PGNvbC T4nSP9sV2mCjQyNsU2HKn nS761KzVbqZEt Ajemr4hjx6seaEf8VzFpU HUuyhHmlDvrPQC8a5PlWd 28A5PejSayu9FfAid2ik7 4eBYgn7U1eTA6 E3IdVHBykhvcyGJrrYwnF L4hRQJigjwuGDPoxR2vGS YpX1s6UlSlJxI3ZOzoP0I rjwZ7YPJtbLPc UHzuCDG1U38rb0J1FNCpL LZvYPH9jGE1rP2bsKzaup ogbGVmdDsgdmVydGljYWw fRZbmH283QWJd wPtqSWSvaU4sOAOwaRDec JcgXM8dJSCqjrnqZrDGZT 6rFAqUNy9JLgKlPfsynOP +YOIlUBI1kCda KZipIAIlcV3gKVYvT2s5F eXyLqR2GIxaN5XnUIEual yuHl78oP7uQfFwCcS0CZy qQ6VazxN7RNMk sCCqKUxsZRE1C51dx7T2Y OTvNJJeKRI5eAF6wO6umV lnbjogbGVmdDsgdmVydGl nRScdVVzrY235 CJZqkGddGvZ9XyI7JkL4K Ti1J2QsJtk8SADliDvlVG 4fdMVhUKvnDh5llNgsyIm rBX0yBKRotudt KIRxlM1mGFTkhTMjpKrmT Z7dONEhoxvjy110GcBcKY K5ZAZyyQYxV2OhbT6kZqL xXHYmIYGyX2Xl yTAoEUwdQ144SNajKdL2C VWlptYdX7DeXJCanVqoUs U8k2O6Gy8rZaGGIVOcdzz vdGQ+PHRkIHN0 fTrvZZnrHVMfjI9xEHGzZ 5m2MfMrJdS5UIduK3VySM OhsmkjBe89dF4zYzMjXsD 6VGgtJ1IgmiF5 RVAhbOHmKVldXZS5W23ix 5H2NMOeJUAeRXX5sPS5oX 1hbGlnbjogbGVmdDsgdmV ydGljYWwtYWxp G067RFYqiCljTuRrtYGtN TwvdGQ+GJGpTNP3ePmmZJ qtCVEanY2xSQLvY8s8DiG fQnS5KBcmN6Ls FLEvzbnfBm44bH7iDxTuO vY6INxoY5BxgtQ4NCQgkO YaSNpzCWZ2V19pn1U7NFV uPKSvAWU7eVY5 oX6rxPjofjhteMDvtWjcc bWkoSgxEZpnOYhiP070CC OwnTbvWf64eDDybQornpI 0Q6ZnGvtbaBE+ LA28WLJjWU62aTQgoOQsc 0lzfKi9XxPqMVVlOVV5xQ ryMYwzp8VrAOOhN63fnQN op3T4PKZniBgg oRUnZiQlcJN5uR2fPCdln pfnk3ymlphpZcucp3yimw 59mJ64K18jVVmrYQVcWWZ zMCUiIHZhbGln dx0eiW1pZl3+CHPrbXP7h FB3nG7iSvEyIwL6DSgkQ3 58IiJquUHeZxlrn2xdv5a ijMn5FyNkQWQf hnPhkUkoAWS2w0WdKn70I 29sIHdpZHRoPSIyMCUiIH EozSnwfe4koO0gRh8+PC9 nb9yfcl63sT84 dHI+UAXpYDB8zBaqBGuxC TRysR4hOCpvMzH7KSLyEt MjaB33dKHtCOcvLk6xtMm trWxaCO1qKVAa oqbzn131LaOnn8pkKEUtk TDpJUtcLII5F18jh4C9SO SbJREvGFP3jBA8aU4tlUe nbjogbGVmdDsg hoSnpCimSYrjLXpnQ875X YYpaZiqRuAjqGItC5zctk VLJR5pZtgvtHL+PHRkIHN 0eWxlPSdwYWRk vD5oHJNtW2x1RcMuObI9L NycW2KcikW3ZCBwbSViVS GwpAPJrQ4uziwca6ytucd gIzAwMDAwMDt0 SJm0XMPivRtaGuIrWDR9N rJ1SCX3eMTarQ7ovMsqve ojfB3mQft+RklOOjwvdGQ +QFPxBFC3lBmy JEspBYPmuV4aMESiU2y3S eFaIyU2FXkkC3FxabU5OE JfoZWxPZObeXPSgO5pixy pj0rkolfnMfVt APUlZHd8YGi9ZAJveChpP xKgREB8KlL4COD0aWZltL 2jeAfnmzsdlA6qBos+TVJ OOjwvdGQ+PHRk QVD3nUhhVTgkKKHaxP0uH ZMiS9t1SyXqPwQ5AVdeQ6 ChzqW0VOXwhWRxUBPnvYC XaX6iecmgt8rh yfykZfWjDRSiZLg8GZg4G BGrcRsqFlZmYUL6NxC1HM V1wXRvcL4vfCauhmwqrH8 wOyc+ZLI9NSB7 MC96OF10P3IgHnjjtZHkm +PHRhYmxlIHdpZHRoPS jmIQSmRtHowAnqGU2nEl4 yZGVyLWNvbGxh cHNl (more content not included)... Normal [facility] Consent for Treatmenton Consent for Treatment [id number] .[id number]:127 Normal [facility] Covid-19 PCR (CVDTBH)on 01-28 SARS-CoV-2 (COVID-19) RNA IGNACIO+probe Ql (Unsp spec) Not detected Normal NOT DETECTED [facility] Comment on above: Result Comment: This test is not yet approved or cleared by the [place] FDA. When there are no FDA-approved or cleared tests available, and other criteria are met, FDA can make tests available under an emergency access mechanism called an Emergency Use Authorization (EUA). The EUA for this test is supported by the [place] of Health and Human Service's (HHS's) declaration [...] SARS-CoV-2. Performed By: #### C VDTBH #### [facility] [address] [place] [address] Dr. Paz Burk INFLUENZA A AND B AGon 02-23 [facility] SEE BELOW Normal [facility] Comment on above: Result Comment: Nega tive for Flu A protein angiten. Infection due to Flu A cannot be ruled out. Flu A angiten in the sample may be below the detection limit of the test. Performed By: #### I NFLUAB #### [facility] [address] [place] [address] Dr. Paz [facility] Normal [facility] Comment on above: Result Comment: Nega tive for Flu B protein antigen. Infection due to Flu B cannot be ruled out. Flu B antigen in the sample may be below the detection limit of the test. Performed By: #### I NFLUAB #### [facility] [address] [place] [address] Dr. Paz Burk INFLUENZA A AG Negative Normal NEGATIVE SEE COMMENT [facility] Comment on above: Performed By: #### I NFLUAB #### [facility] [address] [place] [address] Dr. Paz Burk INFLUENZA B AG Negative Normal NEGATIVE SEE COMMENT [facility] Comment on above: Performed By: #### I NFLUAB #### [facility] [address] [place] [address] Dr. Paz Burk Physician Orderon 02-14-2022 Physician Order [id number] .00CD:127 Normal [facility] BNPon 01-20-2022 Natriuretic peptide B (Bld) [Mass/Vol] 125.0 pg/mL Normal <=450.0 [facility] Comment on above: Performed By: #### C VDTBH #### [facility] [address] [place] [address] Dr. aPz Burk CBC AUTO DIFFon 01-20-2022 BASO # 0.0 103/ul Normal 0.0-0.1 [facility] Comment on above: Performed By: #### C BC #### [facility] [address] [place] [address] Dr. Paz Burk Basophils/100 WBC (Bld) 0.2 % Normal 0.2-2.0 [facility] Comment on above: Performed By: #### C BC #### [facility] [address] [place] [address] Dr. Paz Burk EO # 0.2 103/ul Normal 0.0-0.7 [facility] Comment on above: Performed By: #### C BC #### [facility] [address] [place] [address] Dr. Paz Burk Eosinophils/100 WBC (Bld) 1.2 % Normal 0.9-7.0 [facility] Comment on above: Performed By: #### C BC #### [facility] [address] [place] [address] Dr. Paz Burk Erythrocyte distribution width (RBC) [Ratio] 14.4 % Normal 11.0-15.0 [facility] Comment on above: Performed By: #### C BC #### [facility] [address] [place] [address] Dr. Paz Burk Hematocrit (Bld) [Volume fraction] 37.3 % Normal 36.0-48.0 [facility] Comment on above: Performed By: #### C BC #### [facility] [address] [place] [address] Dr. Paz Burk Hemoglobin (Bld) [Mass/Vol] 12.3 g/dL Normal 12.0-16.0 [facility] Comment on above: Performed By: #### C BC #### [facility] [address] [place] [address] Dr. Paz Burk IG # 0.07 10e3/ul Critically high 0.00-0.03 [facility] Comment on above: Performed By: #### C BC #### [facility] [address] [place] [address] Dr. Paz Burk IG % 0.5 % Normal 0.0-0.5 [facility] Comment on above: Performed By: #### C BC #### [facility] [address] [place] [address] Dr. Paz Bruk LYMPH # 3.0 103/ul Normal 1.2-3.8 [facility] Comment on above: Performed By: #### C BC #### [facility] [address] [place] [address] Dr. Paz Burk Lymphocytes/100 WBC (Bld) 21.2 % Normal 20.5-60.0 [facility] Comment on above: Performed By: #### C BC #### [facility] [address] [place] [address] Dr. Paz Burk MANUAL DIFF REQ NO Normal [facility] Comment on above: Performed By: #### C BC #### [facility] [address] [place] [address] Dr. Paz Burk MCH (RBC) [Entitic mass] 26.8 pg Normal 26.7-34.0 [facility] Comment on above: Performed By: #### C BC #### [facility] [address] [address] [address] Paz Burk MCHC (RBC) [Mass/Vol] 33.0 g/dL Normal 29.9-35.2 [facility] Comment on above: Performed By: #### C BC #### [facility] [address] [place] [address] Dr. Paz Burk MCV (RBC) [Entitic vol] 81.3 fL Normal 81.0-99.0 [facility] Comment on above: Performed By: #### C BC #### [facility] [address] [place] [address] Dr. Paz Burk MONO # 0.7 103/ul Normal 0.3-0.8 [facility] Comment on above: Performed By: #### C BC #### [facility] [address] [place] [address] Dr. Pza Burk Monocytes/100 WBC (Bld) 4.8 % Normal 1.7-12.0 [facility] Comment on above: Performed By: #### C BC #### [facility] [address] [place] [address] Dr. Paz Burk NEUT # 10.3 103/ul Critically high 1.4-6.5 [facility] Comment on above: Performed By: #### C BC #### [facility] [address] [place] [address] Dr. Paz Burk Neutrophils/100 WBC (Bld) 72.1 % Normal 43.0-75.0 [facility] Comment on above: Performed By: #### C BC #### [facility] [address] [place] [address] Dr. Paz Burk Platelet mean volume (Bld) [Entitic vol] 11.2 fL Normal 9.5-13.5 [facility] Comment on above: Performed By: #### C BC #### [facility] [address] [place] [address] Dr. Paz Burk PLT 277 103/ul Normal 150-450 [facility] Comment on above: Performed By: #### C BC #### [facility] [address] [place], [place] [address] Dr. Paz Burk RBC 4.59 106/ul Normal 4.20-5.40 [facility] Comment on above: Performed By: #### C BC #### [facility] [address] [place], [place] [address] Dr. Pza Burk WBC 14.3 103/ul Critically high 4.0-11.0 [facility] Comment on above: Performed By: #### C BC #### [facility] [address] [place], [place] [address] Dr. Paz Burk CTA CHEST WO W [...] LUIS DONATO Date: 2022-01-20 03:10 Normal [facility] Covid-19 PCR (CVDTBH)on 12-29 SARS-CoV-2 (COVID-19) RNA IGNACIO+probe Ql (Unsp spec) Not detected Normal NOT DETECTED [facility] Comment on above: Result Comment: When [...] for this test is supported by the [employer] of Health and Human Service's declaration that [...] used). Performed By: #### C VDTBH #### [facility] [address] [place] [address] Dr. Paz Burk D-DIMERon 01-20-2022 D-DIMER 0.40 mg/L FEU Normal <=0.59 [facility] Comment on above: Performed By: #### C MP #### [facility] [address] [place] [address] Dr. Paz Burk D-DIMER COMMENTS SEE BELOW Normal [facility] Comment on above: Result [...] hospitalization. Performed By: #### C MP #### [facility] [address] [place] [address] Dr. Paz Burk PREG HCG QUALon 01-20-2022 , QUAL Negative Normal NEGATIVE [facility] Comment on above: Performed By: #### C #### [facility] [address] [place] [address] Dr. Paz Burk PROF 14(COMP METB)on 022 Albumin [Mass/Vol] 3.3 g/dL Critically low 3.4-5.0 [facility] Comment on above: Performed By: #### C VDTBH #### [facility] [address] [place] [address] Dr. Paz Burk Albumin/Globulin [Mass ratio] 0.8 {ratio} Normal [facility] Comment on above: Performed By: #### C VDTBH #### [facility] [address] [place] [address] Dr. Paz Burk ALP [Catalytic activity/Vol] 95 U/L Normal 46-116 [facility] Comment on above: Performed By: #### C VDTBH #### [facility] [address] [place] [address] Dr. Paz Burk ALT [Catalytic activity/Vol] 15 U/L Normal 14-59 [facility] Comment on above: Performed By: #### C VDTBH #### [facility] [address] [place] [address] Dr. Paz Burk Anion gap [Moles/Vol] 10.4 mmol/L Normal [facility] Comment on above: Performed By: #### C VDTBH #### [facility] [address] [place] [address] Dr. Paz Burk AST [Catalytic activity/Vol] 10 U/L Critically low 15-37 [facility] Comment on above: Performed By: #### C VDTBH #### [facility] [address] [place] [address] Dr. Paz Burk Bilirubin [Mass/Vol] 0.1 mg/dL Critically low 0.2-1.0 [facility] Comment on above: Performed By: #### C VDTBH #### [facility] [address] [place] [address] Dr. Paz Burk Calcium [Mass/Vol] 8.8 mg/dL Normal 8.5-10.1 [facility] Comment on above: Performed By: #### C VDTBH #### [facility] [address] [place] [address] Dr. Paz Burk Chloride [Moles/Vol] 105 mmol/L Normal 98-107 [facility] Comment on above: Performed By: #### C VDTBH #### [facility] [address] [place] [address] Dr. Paz Burk CO2 [Moles/Vol] 25.3 mmol/L Normal 21.0-32.0 [facility] Comment on above: Performed By: #### C VDTBH #### [facility] [address] [place] [address] Dr. Paz Burk Creatinine [Mass/Vol] 0.83 mg/dL Normal 0.55-1.02 [facility] Comment on above: Performed By: #### C VDTBH #### [facility] [address] [place] [address] Dr. Paz Burk EGFR-AF MALIAN >60 Normal >=60 [facility] Comment on above: Performed By: #### C VDTBH #### [facility] [address] [place] [address] Dr. Paz Burk EGFR-NON AF MALIAN >60 Normal >=60 [facility] Comment on above: Performed By: #### C VDTBH #### [facility] [address] [place] [address] Dr. Paz Burk Globulin (S) [Mass/Vol] 4.1 g/dL Normal [facility] Comment on above: Performed By: #### C VDTBH #### [facility] [address] [place] [address] Dr. Paz Burk Glucose [Mass/Vol] 102 mg/dL Normal 74-106 [facility] Comment on above: Performed By: #### C VDTBH #### [facility] [address] [place] [address] Dr. Paz Burk Potassium [Moles/Vol] 3.7 mmol/L Normal 3.5-5.1 [facility] Comment on above: Performed By: #### C VDTBH #### [facility] [address] [place] [address] Dr. Paz Burk Protein [Mass/Vol] 7.4 g/dL Normal 6.4-8.2 [facility] Comment on above: Performed By: #### C VDTBH #### [facility] [address] [place] [address] Dr. Paz Burk Sodium [Moles/Vol] 137 mmol/L Normal 136-145 [facility] Comment on above: Performed By: #### C VDTBH #### [facility] [address] [place] [address] Dr. Paz Burk Urea nitrogen [Mass/Vol] 11.0 mg/dL Normal 7.0-18.0 [facility] Comment on above: Performed By: #### C VDTBH #### [facility] [address] [place] [address] Dr. Paz Burk Urea nitrogen/Creatinine [Mass ratio] 13.3 mg/mg Normal [facility] Comment on above: Performed By: #### C VDTBH #### [facility] [address] [place] [address] Dr. Paz Burk TROPONIN, HIGH SENSITIVITYon 01-20-2022 HSTROP 4.2 pg/mL Normal 4.0-51.3 [facility] Comment on above: Result Comment: CUT- OFF POINTS HAVE BEEN ESTABLISHED BASED ON THE FOURTH UNIVERSAL DEFINITIONS OF MYOCARDIAL INFARCTION. THE UPPER REFERENCE LIMIT (URL) OF TROPONIN, DEFINED THE 99TH PERCENTILE OF cTnI DISTRIBUTION IN A REFERENCE POPULATION, HAS BEEN CONFIRMED THE DECISION THRESHOLD FOR [place] DIAGNOSIS. Performed By: #### C MP #### [facility] [address] [place] [address] Dr. Paz Burk HSTROP <4.0 Normal 4.0-51.3 [facility] Comment on above: Result Comment: CUT- OFF POINTS HAVE BEEN ESTABLISHED BASED ON THE FOURTH UNIVERSAL DEFINITIONS OF MYOCARDIAL INFARCTION. THE UPPER REFERENCE LIMIT (URL) OF TROPONIN, DEFINED THE 99TH PERCENTILE OF cTnI DISTRIBUTION IN A REFERENCE POPULATION, HAS BEEN CONFIRMED THE DECISION THRESHOLD FOR [place] DIAGNOSIS. Performed By: #### C VDTBH #### [facility] [address] [place] [address] Dr. Paz Burk XR CHEST 1 Von [...] Cornel QUIÑONES Date: 2022-01-19 23:43 Normal [facility] CBC AUTO DIFFon 12-21-2021 BASO # 0.0 103/ul Normal 0.0-0.1 [facility] Comment on above: Performed By: #### C VDTBH #### [facility] [address] [place] [address] Dr. Paz Burk Basophils/100 WBC (Bld) 0.3 % Normal 0.2-2.0 [facility] Comment on above: Performed By: #### C VDTBH #### [facility] [address] [place] [address] Dr. Paz Burk EO # 0.2 103/ul Normal 0.0-0.7 [facility] Comment on above: Performed By: #### C VDTBH #### [facility] [address] [place] [address] Dr. Paz Burk Eosinophils/100 WBC (Bld) 1.2 % Normal 0.9-7.0 [facility] Comment on above: Performed By: #### C VDTBH #### [facility] [address] [place] [address] Dr. Paz Burk Erythrocyte distribution width (RBC) [Ratio] 14.4 % Normal 11.0-15.0 [facility] Comment on above: Performed By: #### C VDTBH #### [facility] [address] [place] [address] Dr. Paz Burk Hematocrit (Bld) [Volume fraction] 37.7 % Normal 36.0-48.0 [facility] Comment on above: Performed By: #### C VDTBH #### [facility] [address] [place] [address] Dr. Paz Burk Hemoglobin (Bld) [Mass/Vol] 12.0 g/dL Normal 12.0-16.0 [facility] Comment on above: Performed By: #### C VDTBH #### [facility] [address] [place] [address] Dr. Paz Burk IG # 0.06 10e3/ul Critically high 0.00-0.03 [facility] Comment on above: Performed By: #### C VDTBH #### [facility] [address] [place] [address] Dr. Paz Burk IG % 0.4 % Normal 0.0-0.5 [facility] Comment on above: Performed By: #### C VDTBH #### [facility] [address] [place] [address] Dr. Paz Burk LYMPH # 3.1 103/ul Normal 1.2-3.8 [facility] Comment on above: Performed By: #### C VDTBH #### [facility] [address] [place] [address] Dr. Paz Burk Lymphocytes/100 WBC (Bld) 21.8 % Normal 20.5-60.0 [facility] Comment on above: Performed By: #### C VDTBH #### [facility] [address] [place] [address] Dr. Paz Burk MANUAL DIFF REQ NO Normal [facility] Comment on above: Performed By: #### C VDTBH #### [facility] [address] [place] [address] Dr. Paz Burk MCH (RBC) [Entitic mass] 26.1 pg Critically low 26.7-34.0 [facility] Comment on above: Performed By: #### C VDTBH #### [facility] [address] [place], [place] [id number] Dr. Paz Burk MCHC (RBC) [Mass/Vol] 31.8 g/dL Normal 29.9-35.2 [facility] Comment on above: Performed By: #### C VDTBH #### [facility] [address] [place] [address] Dr. Paz Burk MCV (RBC) [Entitic vol] 82.0 fL Normal 81.0-99.0 [facility] Comment on above: Performed By: #### C VDTBH #### [facility] [address] [place] [address] Dr. Paz Burk MONO # 0.8 103/ul Normal 0.3-0.8 [facility] Comment on above: Performed By: #### C VDTBH #### [facility] [address] [place] [address] Dr. Paz Burk Monocytes/100 WBC (Bld) 5.9 % Normal 1.7-12.0 [facility] Comment on above: Performed By: #### C VDTBH #### [facility] [address] [place] [address] Dr. Paz Burk NEUT # 10.0 103/ul Critically high 1.4-6.5 [facility] Comment on above: Performed By: #### C VDTBH #### [facility] [address] [place] [address] Dr. Paz Burk Neutrophils/100 WBC (Bld) 70.4 % Normal 43.0-75.0 [facility] Comment on above: Performed By: #### C VDTBH #### [facility] [address] [place] [address] Dr. Paz Burk Platelet mean volume (Bld) [Entitic vol] 11.0 fL Normal 9.5-13.5 [facility] Comment on above: Performed By: #### C VDTBH #### [facility] [address] [place] [address] Dr. Paz Burk PLT 308 103/ul Normal 150-450 [facility] Comment on above: Performed By: #### C VDTBH #### [facility] [address] [place] [address] Dr. Paz Burk RBC 4.60 106/ul Normal 4.20-5.40 [facility] Comment on above: Performed By: #### C VDTBH #### [facility] [address] [place] [address] Dr. Paz Burk WBC 14.2 103/ul Critically high 4.0-11.0 [facility] Comment on above: Performed By: #### C VDTB #### [facility] [address] [place] [address] Dr. Paz Burk PROF 14(COMP METB)on 022 Albumin [Mass/Vol] 3.4 g/dL Normal 3.4-5.0 [facility] Comment on above: Performed By: #### C MP #### [facility] [address] [place] [address] Dr. Paz Burk Albumin/Globulin [Mass ratio] 0.8 {ratio} Normal [facility] Comment on above: Performed By: #### C MP #### [facility] [address] [place] [address] Dr. Paz Burk ALP [Catalytic activity/Vol] 86 U/L Normal 46-116 [facility] Comment on above: Performed By: #### C MP #### [facility] [address] [place] [address] Dr. Paz Burk ALT [Catalytic activity/Vol] 26 U/L Normal 14-59 [facility] Comment on above: Performed By: #### C MP #### [facility] [address] [place] [address] Dr. Paz Burk Anion gap [Moles/Vol] 14.6 mmol/L Normal [facility] Comment on above: Performed By: #### C MP #### [facility] [address] [place] [address] Dr. Paz Burk AST [Catalytic activity/Vol] 15 U/L Normal 15-37 [facility] Comment on above: Performed By: #### C MP #### [facility] [address] [place] [address] Dr. Paz Burk Bilirubin [Mass/Vol] 0.2 mg/dL Normal 0.2-1.0 [facility] Comment on above: Performed By: #### C MP #### [facility] [address] [address] [address] Paz Burk Calcium [Mass/Vol] 8.5 mg/dL Normal 8.5-10.1 [facility] Comment on above: Performed By: #### C MP #### [facility] [address] [address] [address] Paz Burk Chloride [Moles/Vol] 104 mmol/L Normal 98-107 [facility] Comment on above: Performed By: #### C MP #### [facility] [address] [address] [address] Paz Burk CO2 [Moles/Vol] 26.5 mmol/L Normal 21.0-32.0 [facility] Comment on above: Performed By: #### C MP #### [facility] [address] [address] [address] Paz Burk Creatinine [Mass/Vol] 0.88 mg/dL Normal 0.55-1.02 [facility] Comment on above: Performed By: #### C MP #### [facility] [address] [address] [address] Paz Burk EGFR-AF MALIAN >60 Normal >=60 [facility] Comment on above: Performed By: #### C MP #### [facility] [address] [address] [address] Paz Burk EGFR-NON AF MALIAN >60 Normal >=60 [facility] Comment on above: Performed By: #### C MP #### [facility] [address] [address] [address] Paz Burk Globulin (S) [Mass/Vol] 4.4 g/dL Normal [facility] Comment on above: Performed By: #### C MP #### [facility] [address] [address] [address] Paz Burk Glucose [Mass/Vol] 116 mg/dL Critically high 74-106 [facility] Comment on above: Performed By: #### C MP #### [facility] [address] [address] [address] Paz Burk Potassium [Moles/Vol] 3.1 mmol/L Critically low 3.5-5.1 [facility] Comment on above: Performed By: #### C MP #### [facility] [address] [address] [address] Paz Burk Protein [Mass/Vol] 7.8 g/dL Normal 6.4-8.2 [facility] Comment on above: Performed By: #### C MP #### [facility] [address] [address] [address] Paz Burk Sodium [Moles/Vol] 142 mmol/L Normal 136-145 [facility] Comment on above: Performed By: #### C MP #### [facility] [address] [place] [address] Dr. Paz Burk Urea nitrogen [Mass/Vol] 8.0 mg/dL Normal 7.0-18.0 [facility] Comment on above: Performed By: #### C MP #### [facility] [address] [place] [address] Dr. Paz Burk Urea nitrogen/Creatinine [Mass ratio] 9.1 mg/mg Normal [facility] Comment on above: Performed By: #### C MP #### [facility] [address] [place] [address] Dr. Paz Burk PROTIMEon 12-21-2021 INR Coag (PPP) [Relative time] 1.05 {INR} Normal [facility] Comment on above: Performed By: #### P TT, PT #### [facility] [address] [place] [address] Dr. Paz Burk INR GUIDELINES SEE BELOW Normal [facility] Comment on above: Result Comment: NANO RED INR: 2.0 - 3.0 CONDITIONS NOT LISTED BELOW 2.5 - 3.5 FOR PROSTHETIC HEART VALVE REPLACEMENT 2.5 - 3.5 RECURRENT THROMBOSIS Performed By: #### P TT, PT #### [facility] [address] [place] [address] Dr. Paz Burk PT Coag (PPP) [Time] 11.3 s Normal 9.0-11.6 [facility] Comment on above: Performed By: #### P TT, PT #### [facility] [address] [place] [address] Dr. Paz Burk PTTon 12-21-2021 aPTT Coag (Bld) [Time] 32.5 s Normal 22.3-36.2 [facility] Comment on above: Performed By: #### P TT, PT #### [facility] [address] [place] [address] Dr. Paz Burk BLOOD GASES BTYon 11-29-2021 02 MODE ROOM AIR [facility] Comment on above: Performed By: #### C VDTBH #### [facility] [address] [place] [address] Dr. Paz Burk ALLENS TEST Positive [facility] Comment on above: Performed By: #### C VDTBH #### [facility] [address] [place] [address] Dr. Paz Burk Base excess Calc (Bld) [Moles/Vol] 0.7 mmol/L Normal -2.0-2.0 [facility] Comment on above: Performed By: #### C VDTBH #### [facility] [address] [place] [address] Dr. Paz Burk BIPAP PRESSURE Normal [facility] Comment on above: Performed By: #### C VDTBH #### [facility] [address] [place] [address] Dr. Paz Burk CPAP [facility] Comment on above: Performed By: #### C VDTBH #### [facility] [address] [place] [address] Dr. Paz Burk FIO2 Normal [facility] Comment on above: Performed By: #### C VDTBH #### [facility] [address] [place] [address] Dr. Paz Burk HCO3 (Bld) [Moles/Vol] 25.3 mmol/L Normal 22.0-26.0 [facility] Comment on above: Performed By: #### C VDTBH #### [facility] [address] [place] [address] Dr. Paz Burk LPM [facility] Comment on above: Performed By: #### C VDTBH #### [facility] [address] [place] [address] Dr. Paz Burk MINUTE VOLUME Normal [facility] Comment on above: Performed By: #### C VDTBH #### [facility] [address] [place] [address] Dr. Paz Burk Oxygen (Bld) [Partial pressure] 96.1 mm[Hg] Normal 80.0-100.0 [facility] Comment on above: Performed By: #### C VDTBH #### [facility] [address] [place] [address] Dr. Paz Burk Oxygen saturation in Blood 99.0 % Normal 95.0-100.0 [facility] Comment on above: Performed By: #### C VDTBH #### [facility] [address] [place] [address] Dr. Paz Burk PCO2 35.8 mmHg Normal 35.0-45.0 [facility] Comment on above: Performed By: #### C VDTBH #### [facility] [address] [place] [address] Dr. Paz Burk PEEP [facility] Comment on above: Performed By: #### C VDTBH #### [facility] [address] [place] [address] Dr. Paz Burk pH (Bld) 7.448 [pH] Normal 7.350-7.450 [facility] Comment on above: Performed By: #### C VDTBH #### [facility] [address] [place] [address] Dr. Paz Burk [facility] Comment on above: Performed By: #### C VDTBH #### [facility] [address] [place] [address] Dr. Paz Burk PS [facility] Comment on above: Performed By: #### C VDTBH #### [facility] [address] [place] [address] Dr. Paz Burk PUNCTURE SITE RR Normal [facility] Comment on above: Performed By: #### C VDTBH #### [facility] [address] [place] [address] Dr. Paz Burk RATE [facility] Comment on above: Performed By: #### C VDTBH #### [facility] [address] [place] [address] Dr. Paz Burk VENT MODE [facility] Comment on above: Performed By: #### C VDTBH #### [facility] [address] [place] [address] Dr. Paz Burk [facility] Comment on above: Performed By: #### C VDTBH #### [facility] [address] [place] [address] Dr. Paz Burk CULTURE URINEon 08-21-2021 CULTURE URINE Culture Observations : MODERATE GROWTH OF MIXED GENITAL TING. NO POTENTIAL PATHOGENS SEEN. [facility] Comment on above: Performed By: #### C MP #### [facility] [address] [place] [address] Dr. Paz Burk ER URINE PROFILEon 2 Bilirubin Ql (U) Negative Normal NEGATIVE [facility] Comment on above: Performed By: #### C MP #### [facility] [address] [place] [address] Dr. Paz Burk Clarity (U) CLEAR Normal CLEAR [facility] Comment on above: Performed By: #### C MP #### [facility] [address] [place] [address] Dr. Paz Burk Color (U) LT. YELLOW Normal YELLOW [facility] Comment on above: Performed By: #### C MP #### [facility] [address] [place] [address] Dr. Paz Burk ERUAHD A micrscopic examination will be performed if indicated. Normal [facility] Comment on above: Performed By: #### C MP #### [facility] [address] [address] [address] Paz Burk Glucose Ql (U) Negative Normal NEGATIVE [facility] Comment on above: Performed By: #### C MP #### [facility] [address] [address] [address] Paz Burk Hemoglobin Ql (U) Negative Normal NEGATIVE [facility] Comment on above: Performed By: #### C MP #### [facility] [address] [address] [address] Paz Burk Ketones Ql (U) Negative Normal NEGATIVE [facility] Comment on above: Performed By: #### C MP #### [facility] [address] [place] [address] Dr. Paz Burk LEUKOCYTES LARGE Abnormal NEGATIVE [facility] Comment on above: Performed By: #### C MP #### [facility] [address] [place] [address] Dr. Paz Burk Nitrite Ql (U) Negative Normal NEGATIVE [facility] Comment on above: Performed By: #### C MP #### [facility] [address] [place] [address] Dr. Paz Burk pH (U) 7.5 [pH] Normal 5-9 [facility] Comment on above: Performed By: #### C MP #### [facility] [address] [place] [address] Dr. Paz Burk SPEC GRAVITY 1.020 Normal 1.005-<=1.025 [facility] Comment on above: Performed By: #### C MP #### [facility] [address] [place] [address] Dr. Paz Burk UA PROTEIN Negative Normal NEGATIVE/ TRACE [facility] Comment on above: Performed By: #### C MP #### [facility] [address] [place] [address] Dr. Paz Burk UR MICRO IND INDICATED Normal [facility] Comment on above: Performed By: #### C MP #### [facility] [address] [place] [address] Dr. Paz Burk Urobilinogen Qn (U) 0.2 {Ara'U}/dL Normal 0.2 - 1. 0 [facility] Comment on above: Performed By: #### C MP #### [facility] [address] [place] [address] Dr. Paz Burk URon 08-21-2021 , QUAL Negative Normal NEGATIVE [facility] Comment on above: Performed By: #### C MP #### [facility] [address] [place] [address] Dr. Paz Burk URINE MICROSCOPIC ONLYon BACTERIA SMALL Abnormal NONE SEEN [facility] Comment on above: Performed By: #### C MP #### [facility] [address] [place] [address] Dr. Paz Burk Bacteria identified Cx Nom (U) INDICATED Normal [facility] Comment on above: Performed By: #### C MP #### [facility] [address] [place] [address] Dr. Paz Burk CAST NONE SEEN Normal NONE SEEN [facility] Comment on above: Performed By: #### C MP #### [facility] [address] [place] [address] Dr. Paz Burk Crystals LM Nom (Urine sed) NONE SEEN Normal NONE SEEN [facility] Comment on above: Performed By: #### C MP #### [facility] [address] [place] [address] Dr. Paz Burk Epithelial cells LM Ql (Urine sed) FEW Abnormal NONE SEEN /RARE [facility] Comment on above: Performed By: #### C MP #### [facility] [address] [place] [address] Dr. Paz Burk MUCOUS NONE SEEN Normal NONE SEEN [facility] Comment on above: Performed By: #### C MP #### [facility] [address] [place] [address] Dr. Paz Burk RBC NONE SEEN Abnormal 0-2 [facility] Comment on above: Performed By: #### C MP #### [facility] [address] [place] [address] Dr. Paz Burk WBC 5-10 Abnormal NONE SEEN [facility] Comment on above: Performed By: #### C MP #### [facility] [address] [address] [address] Paz Burk Vital Signs Date Time Vital Sign Value Performing Clinician Facility 09-23-2024 14:17-0400 Body mass index (BMI) [Ratio] 46.48 kg/m2 Talya OJEDA Work Phone: [facility] 09-23-2024 14:17-0400 Body weight 130.64 kg Talya OJEDA Work Phone: [facility] 09-12-2024 11:08-0400 Body mass index (BMI) [Ratio] 53.38 kg/m2 Dhruv Jorje DO Work Phone: [facility] 09-12-2024 11:08-0400 Body weight 150.03 kg Dhruv Jorje DO Work Phone: [facility] 09-12-2024 11:08-0400 Diastolic blood pressure 86 mm[Hg] Dhruv Jorje DO Work Phone: [facility] 09-12-2024 11:08-0400 Systolic blood pressure 122 mm[Hg] Dhruv Jorje DO Work Phone: [facility] 09-11-2024 15:33-0400 Body mass index (BMI) [Ratio] 53.58 kg/m2 [facility] 09-11-2024 15:33-0400 Body weight 150.5 kg [facility] 08-28-2024 13:16-0400 Body mass index (BMI) [Ratio] 52.84 kg/m2 Dhruv Jorje DO Work Phone: [facility] 08-28-2024 13:16-0400 Body weight 148.51 kg Dhruv Jorje DO Work Phone: [facility] 08-28-2024 13:16-0400 Diastolic blood pressure 70 mm[Hg] Dhruv Jorje DO Work Phone: [facility] 08-28-2024 13:16-0400 Systolic blood pressure 122 mm[Hg] Dhruv Jorje DO Work Phone: [facility] 08-21-2024 13:30-0400 Body mass index (BMI) [Ratio] 51.71 kg/m2 Talya Axel PA Work Phone: [facility] 08-21-2024 13:30-0400 Body weight 145.33 kg Talya Axel PA Work Phone: [facility] 08-21-2024 13:30-0400 Diastolic blood pressure 72 mm[Hg] Talya Axel PA Work Phone: [facility] 08-21-2024 13:30-0400 Systolic blood pressure 120 mm[Hg] Talya Reyna PA Work Phone: [facility] 08-05-2024 14:16-0400 Body mass index (BMI) [Ratio] 50.7 kg/m2 Dhruv Jorje DO Work Phone: [facility] 08-05-2024 14:16-0400 Body weight 142.48 kg Dhruv Jorje DO Work Phone: [facility] 08-05-2024 14:16-0400 Diastolic blood pressure 72 mm[Hg] Dhruv Jorje DO Work Phone: [facility] 08-05-2024 14:16-0400 Systolic blood pressure 110 mm[Hg] Dhruv Jorje DO Work Phone: [facility] 07-17-2024 14:16-0400 Body height 167.6 cm Americo Reddy MD Work Phone: [facility] 07-17-2024 14:16-0400 Body mass index (BMI) [Ratio] 50.92 kg/m2 Americo Reddy MD Work Phone: [facility] 07-17-2024 14:16-0400 Body weight 143.02 kg Americo Reddy MD Work Phone: [facility] 07-17-2024 14:16-0400 Diastolic blood pressure 72 mm[Hg] Americo Reddy MD Work Phone: [facility] 07-17-2024 14:16-0400 Heart rate 92 /min Americo Reddy MD Work Phone: [facility] 07-17-2024 14:16-0400 Systolic blood pressure 108 mm[Hg] Americo Reddy MD Work Phone: [facility] 06-26-2024 15:44-0400 Body mass index (BMI) [Ratio] 49.67 kg/m2 Dhruv Jorje DO Work Phone: [facility] 06-26-2024 15:44-0400 Body weight 139.59 kg Dhruv Jorje DO Work Phone: [facility] 06-26-2024 15:44-0400 Diastolic blood pressure 72 mm[Hg] Dhruv Jorje DO Work Phone: [facility] 06-26-2024 15:44-0400 Systolic blood pressure 108 mm[Hg] Dhruv Jorje DO Work Phone: [facility] 06-21-2024 09:02-0400 Body height 167.6 cm Kvng Jordan MD Work Phone: [facility] 06-21-2024 09:02-0400 Body mass index (BMI) [Ratio] 49.67 kg/m2 Kvng Jordan MD Work Phone: [facility] 06-21-2024 09:02-0400 Body weight 139.53 kg Kvng Jordan MD Work Phone: [facility] 06-21-2024 09:02-0400 Diastolic blood pressure 75 mm[Hg] Kvng Jordan MD Work Phone: [facility] 06-21-2024 09:02-0400 Heart rate 91 /min Kvng Jordan MD Work Phone: [facility] 06-21-2024 09:02-0400 Systolic blood pressure 111 mm[Hg] Kvng Jordan MD Work Phone: [facility] 05-27-2024 16:24-0400 Diastolic blood pressure 69 mm[Hg] Kvng Jordan MD Work Phone: [facility] 05-27-2024 16:24-0400 Heart rate 86 /min Kvng Jordan MD Work Phone: [facility] 05-27-2024 16:24-0400 Systolic blood pressure 106 mm[Hg] Kvng Jordan MD Work Phone: [facility] 04-09-2024 11:34-0500 Body mass index (BMI) [Ratio] 45.52 kg/m2 Dhruv Jorje DO Work Phone: [facility] 04-09-2024 11:34-0500 Body weight 127.91 kg Dhruv Jorje DO Work Phone: [facility] 04-09-2024 11:34-0500 Diastolic blood pressure 72 mm[Hg] Dhruv Jorje DO Work Phone: [facility] 04-09-2024 11:34-0500 Systolic blood pressure 116 mm[Hg] Dhruv Jorje DO Work Phone: [facility] 03-08-2024 09:24-0500 Body mass index (BMI) [Ratio] 45.1 kg/m2 Nom Nurse [facility] 03-08-2024 09:24-0500 Body weight 126.73 kg Noms Nurse [facility] 03-08-2024 09:24-0500 Diastolic blood pressure 70 mm[Hg] Noms Nurse [facility] 03-08-2024 09:24-0500 Systolic blood pressure 110 mm[Hg] [facility] 06-29-2020 09:02-0400 Body height 167.64 cm Edith Ford Work Phone: [facility] 06-29-2020 09:02-0400 Body mass index (BMI) [Ratio] 48.2 kg/m2 Edith Ford Work Phone: [facility] 06-29-2020 09:02-0400 Body temperature 97.8 [degF] Edith Ford Work Phone: [facility] 06-29-2020 09:02-0400 Body weight 135.65 kg Edith Ford Work Phone: [facility] 06-29-2020 09:02-0400 Diastolic blood pressure 73 mm[Hg] Edith Ford Work Phone: [facility] 06-29-2020 09:02-0400 Heart rate 69 /min Edith Ford Work Phone: [facility] 06-29-2020 09:02-0400 Respiratory rate 16 /min Edith Ford Work Phone: [facility] 06-29-2020 09:02-0400 SaO2% (BldA) [Mass fraction] 98 % Edith Ford Work Phone: [facility] 06-29-2020 09:02-0400 Systolic blood pressure 130 mm[Hg] Edith Ford Work Phone: [facility] Encounters Encounter Date Encounter Type Care Provider Facility Start: 09-23-2024 End: 09-23-2024 ambulatory TALYA REYNA Not Available Start: 09-23-2024 End: 09-23-2024 Bamboo flowsheet Talya OJEDA Work Phone: [facility] Start: 09-23-2024 End: 09-23-2024 Bamboo flowsheet Talya OJEDA Work Phone: [facility] Start: 09-23-2024 End: 09-23-2024 Postop follow up visit related to original px Talya OJEDA Work Phone: [facility] Comment on above: Postoperative visit; S/P section Start: 09-17-2024 End: 09-17-2024 Clinisync Result Encounter Dhruv Jorje DO Work Phone: [facility] External Department Unsolicited Start: 09-17-2024 End: 09-17-2024 Clinisync Result Encounter Dhruv Jorje DO Work Phone: [facility] External [facility] Unsolicited Start: 09-16-2024 End: 09-16-2024 Clinisync Result Encounter Dhruv Jorje DO Work Phone: [facility] Unsolicited Start: 09-16-2024 End: 09-16-2024 Clinisync Result Encounter Dhruv Jorje DO Work Phone: [facility] External [facility] Unsolicited Start: 09-16-2024 End: 09-16-2024 ambulatory Dhruv Jorje [facility] Work Phone: Start: 09-16-2024 End: 09-16-2024 Departed Referred Dhruv Jorje -LAB [facility] Start: 09-12-2024 End: 09-12-2024 Bamboo flowsheet Dhruv Jorje DO Work Phone: [facility] Start: 09-12-2024 End: 09-12-2024 Bamboo flowsheet Dhruv Jorje DO Work Phone: [facility] Start: 09-12-2024 End: 09-12-2024 Office outpatient visit 15 minutes Dhruv Jorje DO Work Phone: [facility] Comment on above: Third trimester preg mamta ([facility]); 36 weeks gestation of ([facility]); Monochorionic diamniotic twin , antepartum ([facility]) Start: 09-12-2024 End: 09-12-2024 ambulatory DHRUV JORJE Not Available Start: 09-11-2024 End: 09-11-[address] Work Phone: [facility] Comment on above: Monochorionic diamni otic twin gestation in third trimester; Gestational diabetes mellitus (GDM) in third trimester, gestational diabetes method of control unspecified Start: 08-29-2024 End: 08-29-2024 Orders Only Quin Rodas RN [facility] Comment on above: Monochorionic diamni otic [...] Comment on above: Third trimester preg mamta ([facility]); 34 weeks gestation of ([facility]) Start: 08-28-2024 End: 08-28-2024 ambulatory DHRUV JORJE Not Available Start: 08-21-2024 End: 08-21-2024 Bamboo flowsheet Talya OJEDA Work Phone: [facility] Start: 08-21-2024 End: 08-21-2024 Bamboo flowsheet Talya OJEDA Work Phone: [facility] Start: 08-21-2024 End: 08-21-2024 ambulatory TALYA REYNA Not Available Start: 08-21-2024 End: 08-21-2024 Office outpatient visit 15 minutes Talya OJEDA Work Phone: [facility] Comment on above: 33 weeks gestation o f ([facility]); Third trimester ([facility]); Monochorionic diamniotic twin , antepartum ([facility]); Nonintractable headache, unspecified chronicity pattern, unspecified headache type; Other iron deficiency anemia Start: 08-16-2024 End: 08-16-2024 Telephone encounter Americo Reddy MD Work Phone: [facility] Comment on above: Monochorionic diamni otic twin gestation in third trimester (Primary Dx) Start: 08-15-2024 End: 08-15-2024 ambulatory [facility] Start: 08-05-2024 End: 08-05-2024 Bamboo flowsheet [...] Third trimester Start: 07-31-2024 End: 07-31-2024 ambulatory [facility] Start: 07-30-2024 End: 07-30-2024 ambulatory Cici Guadalupe [facility] Work Phone: Start: 07-30-2024 End: 07-30-2024 Departed Referred Cici Guadalupe DO Work Phone: [facility] Start: 07-18-2024 End: 07-18-2024 ambulatory TALYA REYNA Not Available Start: 07-17-2024 End: 07-17-2024 Office outpatient visit 25 minutes Americo Reddy MD Work Phone: [facility] Comment on above: 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 (Primary Dx) Start: 07-17-2024 End: 07-17-2024 Orders Only Elizabeth Wang RN [facility] Comment on above: Monochorionic diamni otic twin gestation in third trimester (Primary Dx) Start: 07-16-2024 End: 07-16-2024 Clinisync Result Encounter Dhruv Jorje DO Work Phone: [facility] External Department Unsolicited Start: 07-16-2024 End: 07-16-2024 Clinisync Result Encounter Dhruv Jorje DO Work Phone: [facility] External Department Unsolicited Start: 07-05-2024 End: 07-05-2024 ambulatory DHRUV R JORJE [facility] Start: 06-26-2024 End: 06-26-2024 ambulatory DHRUV [...] Only Lara Borrero RN [facility] Comment on above: 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 (Primary Dx); Echogenic intracardiac focus of fetus on ultrasound; 24 weeks gestation of Start: 06-21-2024 End: 06-21-2024 Telephone encounter Oneida Brunson [facility] Start: 06-21-2024 End: 06-21-2024 Office outpatient visit 25 minutes Kvng Jordan MD Work Phone: [facility] Comment on above: 24 weeks gestation o f (Primary Dx); Monochorionic diamniotic twin gestation in second trimester Start: 06-21-2024 End: 06-21-2024 ambulatory [facility] Start: 06-14-2024 End: 06-14-2024 ambulatory [facility] Start: 06-12-2024 End: 06-12-2024 Orders Only Elizabeth Wang RN [facility] Comment on above: 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 (Primary Dx); Echogenic intracardiac focus of fetus on ultrasound Start: 06-07-2024 End: 06-07-2024 ambulatory TALYA [facility] Start: 05-31-2024 End: 05-31-2024 Office outpatient new 60 minutes Divya Limon M.D. Work Phone: [facility] Comment on above: 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 (Primary Dx) Start: 05-31-2024 End: 05-31-2024 ambulatory MEENU MENDES [facility] Start: 05-31-2024 End: 05-31-2024 ambulatory NICHOLE HYDE [facility] Start: 05-27-2024 End: 05-27-[address] [facility] Start: 05-27-2024 End: 05-27-2024 Office outpatient visit 40 minutes Kvng Jordan MD Work Phone: [facility] Comment on above: 20 weeks gestation o f (Primary Dx); Monochorionic diamniotic twin gestation in second trimester; Echogenic intracardiac focus of fetus on ultrasound Start: 05-27-2024 End: 05-27-2024 ambulatory [facility] Start: 05-13-2024 End: 05-13-2024 Orders Only Elizabeth Wang RN [facility] Comment on above: 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 (Primary Dx) Start: 05-10-2024 End: 05-10-2024 ambulatory DHRUV R JORJE [facility] Start: 05-07-2024 End: 05-07-2024 ambulatory TALYA REYNA Not Available Start: 04-26-2024 End: 04-26-2024 Orders Only Lara Borrero RN [facility] Comment on above: 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 (Primary Dx); 16 weeks gestation of Start: 04-11-2024 End: 04-11-2024 Chart abstracting Kvng Jordan MD Work Phone: [facility] Start: 04-10-2024 End: 04-10-2024 Telephone encounter Brittanie Chen LPN [facility] Start: 04-09-2024 End: 04-09-2024 Bamboo flowsheet [...] Start: 03-03-2022 End: 03-04-2022 ambulatory Neal Garcia Facility:[facility] Start: 03-03-2022 End: 03-03-2022 Patient encounter procedure Edithandrae Ford [facility] Start: 02-23-2022 End: 02-24-[address] DOCTOR MISC Facility:[facility] Start: 01-20-2022 End: 01-20-[address] DOCTOR MISC Facility:[facility] Start: 12-21-2021 End: 12-21-[address] DOCTOR MISC Facility:[facility] Start: 11-29-2021 End: 11-29-[address] DOCTOR MISC Facility:[facility] Start: 08-21-2021 End: 08-21-[address] DOCTOR MISC Facility:[facility] Start: 06-29-2020 End: 06-29-2020 Emergency department patient visit Edith Ford Work Phone: [facility]gency [facility] Procedures Date Procedure Procedure Detail Performing Clinician Start: 09-17-2024 ALL CBC WITH AUTO DIFF Dhruv Jorje DO Work Phone: Start: 09-16-2024 ALL CBC WITH AUTO DIFF Dhruv Jorje DO Work Phone: Start: 09-12-2024 Urnls dip stick/tabl et rgnt non-auto w/o micrscp Dhruv Jorje DO Work Phone: Start: 08-28-2024 GLUCOSE TOLERANCE 3 HOUR Dhruv Jorje DO Work Phone: Start: 08-21-2024 Urnls dip stick/tabl et rgnt non-auto w/o micrscp Talya OJEDA Work Phone: Start: 08-05-2024 Urnls dip stick/tabl et rgnt non-auto w/o micrscp Dhruv Jorje DO Work Phone: Start: 07-30-2024 Urine culture Cici durbin DO Work Phone: Start: 07-16-2024 GLUCOSE 1 HOUR Dhruv Fa zio DO Work Phone: Start: 06-26-2024 Urnls dip stick/tabl et rgnt non-auto w/o micrscp Dhruv Jorje DO Work Phone: Start: 05-07-2024 Microscopic observat ion [Identifier] in Cervix by Cyto stain Kvng Jodran MD Work Phone: Start: 04-09-2024 Urnls dip [...] DO Work Phone: Appendectomy Edith Bello n H/O: section S/P sectio n Talya OJEDA Work Phone: History of tympanostomy tubes in ears Pola Ford Tubes in Ears Edith Cho on Plan of Treatment Date Care Activity Detail Author Start: 05-08-2027 Screening for malign ant neoplasm of cervix Pap Smear [facility] [employer] Start: 08-16-2025 End: 08-16-2025 US MFM with or without consult US MFM with or without consult Imaging Routine Monochorionic 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 Expected: 08/16/2025 (Approximate), Expires: 08/16/2025 [employer] Work Phone: Comment on above: Expected: 08/16/2025 (Approximate), Expires: 08/16/2025 Start: 07-17-2025 Adult BMI Screening Adult BMI Screen ing [facility] Start: 07-17-2025 Tobacco Screening Tobacco Screening [facility] Start: 07-17-2025 End: 07-17-2025 US MFM with or without consult US MFM with or without consult Imaging Routine Monochorionic 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 Expected: 07/17/2025 (Approximate), Expires: 07/17/2025 [employer] Work Phone: Comment on above: Expected: 07/17/2025 (Approximate), Expires: 07/17/2025 Start: 06-24-2025 End: 06-24-2025 US MFM with or without consult US MFM with or without consult Imaging Routine Monochorionic diamniotic twin gestation in second trimester Echogenic intracardiac focus of fetus on ultrasound 24 weeks gestation of Expected: 06/24/2025 (Approximate), Expires: 06/24/2025 [employer] Work Phone: Comment on above: Expected: 06/24/2025 (Approximate), Expires: 06/24/2025 Start: 06-21-2025 Adult BMI Screening Adult BMI Screen ing [facility] Start: 06-21-2025 Tobacco Screening Tobacco Screening [facility] Start: 06-12-2025 End: 06-12-2025 US MFM with or without consult US MFM with or without consult Imaging Routine Monochorionic diamniotic twin gestation in second trimester Echogenic intracardiac focus of fetus on ultrasound Expected: 06/12/2025 (Approximate), Expires: 06/12/2025 [employer] Work Phone: Comment on above: Expected: 06/12/2025 (Approximate), Expires: 06/12/2025 Start: 05-27-2025 Tobacco Screening Tobacco Screening [facility] Start: 05-13-2025 End: 05-13-2025 US MFM with or without consult US MFM with or without consult Imaging Routine Monochorionic diamniotic twin gestation in second trimester Expected: 05/13/2025 (Approximate), Expires: 05/13/2025 [facility] Work Phone: Comment on above: Expected: 05/13/2025 (Approximate), Expires: 05/13/2025 Start: 04-26-2025 Adult BMI Screening Adult BMI Screen ing [facility] Start: 04-26-2025 Tobacco Screening Tobacco Screening [facility] Start: 04-26-2025 End: 04-26-2025 US MFM with or without consult US MFM with or without consult Imaging Routine Monochorionic diamniotic twin gestation in second trimester 16 weeks gestation of Expected: 04/26/2025 (Approximate), Expires: 04/26/2025 [facility] Work Phone: Comment on above: Expected: 04/26/2025 (Approximate), Expires: 04/26/2025 Start: 10-29-2024 End: 10-29-2024 Patient encounter procedure 10/29/2024 10:40 AM EDT Office Visit SWAPNA RUIZ [address] [place] [phone] Dhruv Recinos DO [address] [place] [address] [facility] RUIZ Start: 10-28-2024 AMB SEASONAL FLU VAC CINE (Season Ended) AMB SEASONAL FLU VACCINE (Season Ended) [facility] Start: 10-28-2024 Influenza vaccination [facility] Start: 09-23-2024 End: 09-23-2024 Patient encounter procedure 09/23/2024 1:50 PM EDT Office Visit [facility] CORTEZ OB [address] [place] [phone] Talya Reyna PA [address] [place], [place] [id number] [facility] Start: 09-12-2024 End: 09-12-2025 CULTURE, GROUP B STREP WITH SUSCEPTIBLITY CULTURE, GROUP B STREP WITH SUSCEPTIBLITY Lab Routine Third trimester ([facility]) Expected: 09/12/2024, Expires: 09/12/2025 [facility] Work Phone: Comment on above: Expected: 09/12/2024 , Expires: 09/12/2025 Start: 09-12-2024 End: 09-12-2024 Patient encounter procedure [facility] Comment on above: Arrived Start: 09-11-2024 End: 09-11-2024 Patient encounter procedure 09/11/2024 1:30 PM EDT Appointment [facility] [address] [place] [phone] [facility] Start: 08-29-2024 End: 08-29-2024 Patient encounter procedure 08/29/2024 3:30 PM EDT Appointment [facility] [address] [place] [phone] [facility] Start: 08-28-2024 End: 08-28-2024 Patient encounter procedure 08/28/2024 1:00 PM EDT Routine [facility] [address] [place] [address] Dhruv Recinos DO [address] [place] [address] [facility] Start: 08-19-2024 End: 08-19-2024 Patient encounter procedure 08/19/2024 2:30 PM EDT Routine [facility] [address] [place] [phone] Talya Reyna PA [address] [place] [address] [facility] Start: 08-15-2024 End: 08-15-2024 Patient encounter procedure 08/15/2024 11:30 AM EDT Appointment [facility] [address] [place] [phone] [facility] Start: 07-31-2024 End: 07-31-2024 Patient encounter procedure 07/31/2024 3:30 PM EDT Appointment [facility]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 to deliver at [facility] Recommendations: Daily low dose (81mg) aspirin for preeclampsia prevention To return in 2 weeks for Dopplers for re-evaluation of the twins TTTS and TAPS protocol scheduled at [facility] Follow-up survey/echo scheduled growth every 4 weeks at [facility] monitoring with weekly NST and DVP at 32 weeks until delivery done through primary OB office Delivery [id number] gestation. If the remains stable consider delivery [...] of delivery: The patient desires delivery at [facility]. Please initiate transfer of care Continue to recommend marijuana cessation The patient has a scheduled follow-up up with [facility] Plan reviewed with patient. She vocalized understanding all questions answered. The patient is to continue with routine care in your office Thank you for allowing me to participate in her care. Please contact me if you have any concerns. Kvng Jordan MD, FACOG (she/hers) Maternal- Medicine [facility] [address] [place] [address] This document was created with Bango technology. Though I make every effort to review the dictation as it is transcribed, on occasion the spoken word can be misinterpreted by the technology leading to inappropriate words, phrases, or sentences. This note is addressed to the requesting provider as a consultation for clinical guidance. Specific medical abbreviations are occasionally used and those are generally approved by the [place]?Board of?Obstetrics and?Gynecology?as well as?Gilbert s abbreviations. The above plan of care was based solely on the diagnoses for which a consultation was requested. ?More frequent testing may be indicated based on her other medical/obstetrical conditions. The management of other or medical conditions is beyond the scope of requested consultation and will continue to be followed by the primary practice advisor or primary care provider. Note to patient: [...] of the practitioner. documented in this encounter [facility] 05-27-2024 History of Presen t illness Narrative Headache/epigastric pain/blurry vision/swelling? No Cramping/contractions? No Abnormal vaginal discharge? No Spotting or vaginal bleeding? No Loss or gush of fluid like your water may have broken? No Recent ER visits or hospitalizations? No Any concerns that you would like me to mention to the provider today? No [facility] Maternal- Medicine Office Note Reason For Office: add on due to significant growth discrepancy HPI: Juan Diego Romero is a 23 y.o. at 20w5d ith [...] Medical History: Diagnosis Date BMI 45.0-49.9, [place] [place] Irregular periods Oligomenorrhea PCOS [...] I would recommend 2nd opinion at the [facility]. The is at risk of adverse outcomes [...] of delivery for uncomplicated monochorionic diamniotic twins [id number] I reviewed with them that monochorionic diamniotic twin gestations with isolated growth restriction if they remain clinically stable delivery is [id number]. 3. Echogenic intracardiac focus of fetus on [...] TTTS/TAPS surveillance and growth ultrasounds Referral to [facility] initiated Timing of delivery to be readdressed pending clinical course. Further recommendations to be made at follow-up visit Location of delivery would recommend tertiary care center the patient desires delivery at [facility]. Please initiate transfer of care to for the [facility] The patient has a scheduled follow-up with [facility] Plan reviewed with patient. She vocalized understanding all questions answered. The patient is to continue with routine care in your office Thank you for allowing me to participate in her care. Please contact me if you have any concerns. Kvng Jordan MD, FACOG (she/hers) Maternal- Medicine [facility] [address] [place] [address] This document was created with Bango technology. Though I make every effort to review the dictation as it is transcribed, on occasion the spoken word can be misinterpreted by the technology leading to inappropriate words, phrases, or sentences. This note is addressed to the requesting provider as a consultation for clinical guidance. Specific medical abbreviations are occasionally used and those are generally approved by the [place]?Board of?Obstetrics and?Gynecology?as well as?Gilbert sesay abbreviations. The above plan of care was based solely on the diagnoses for which a consultation was requested. ?More frequent testing may be indicated based on her other medical/obstetrical conditions. The management of other or medical conditions is beyond the scope of requested consultation and will continue to be followed by the primary practice advisor or primary care provider. Note to patient: [...] of the practitioner. [facility] Miscellaneous Notes Please call us back we are holding an kade for you. documented in this encounter [facility]-10-2024 Telephone encounter Note Please call us back we are holding an kade for you. [facility] 04-09-2024 History of Presen t illness Narrative Reason for Appointment: Patient ID: Juan Diego Romero is a 23 y.o. female who presents [...] by LYNETTE Moreno documented in this encounter [facility] 03-08-2024 History of Presen t illness Narrative Reason for Appointment: Patient ID: Juan Diego Romero is a 23 y.o. female who presents [...] or undercooked meat, and stay away from [facility]. Patient has also been advised to not change litter boxes and eat 6 small meals a day. Patient has been consulted regarding the do's and don'ts of . Patient was given labs and all questions and concerns were answered. Patient was given script for vitamins and Zofran. Patient given Foristell to do at 10 weeks. Follow Up: Patient is to return in 4 weeks for routine OB appointment. Follow Up: Patient is to have labs drawn at directed and return to office for initial OB appointment with provider. Patient may call office as needed with any concerns or questions. Nurse Visit Completed by: Mackenzie Davison LPN documented in this encounter [facility] 03-03-2022 Note Echocardiology Procedure Exam Date/Time Accession # Ordering Echo Transthoracic 03/03/2022 09:37 EST [id number] Shady GOMEZ, Edith Quiroga Complete CPT code 36650 [id number] Reason for Exam (Echo Transthoracic Complete) Cardiomegaly I51.[address] [place] [address] Adult Echocardiogram Report Name: JUAN DIEGO ROMERO Study Date: 03/03/2022 09:03 AM BP: 111/78 mmHg Patient Location: [facility] HR: 68 : 2000 Gender: Female Height: 66 in Age: 21 yrs Ethnicity: [facility] Weight: 298 lb Reason For Study: Cardiomegaly I51.7 BSA: 2.4 m2 History: No cardiac history per patient Ordering Physician: Edith Ford Referring Physician: Edith Ford Performed By: Tara Lilly, [facility] Interpretation Summary No comparison [...] Garcia MD Transcribed by: MATHEW Technologist: KEN [facility] 06-29-2020 Hospital Discharg e instructions [...] palpitations fever vomiting or any other concerns [facility] Evaluation + Plan note No data available for this section [facility] Evaluation note No Assessments Infor mation Available [facility] Evaluation note Diagnosis Missed menses , unspecified gestational age Encounter for supervision of normal first in first trimester Nausea Nausea alone documented in this encounter [facility]* Diagnosis Second trimester state, incidental 13 weeks gestation of documented in this encounter [facility]* Diagnosis Monochorionic diamniotic twin gestation in second trimester- Primary 16 weeks gestation of [facility] Diagnosis Monochorionic diamniotic twin gestation in second trimester- Primary [facility] in this [facility]* Diagnosis 20 weeks gestation of - Primary Monochorionic diamniotic twin gestation in second trimester Echogenic intracardiac focus of fetus on ultrasound documented in this [facility]* Diagnosis Monochorionic diamniotic twin gestation in second trimester- Primary [facility] Diagnosis Monochorionic diamniotic twin gestation in second trimester- Primary Echogenic intracardiac focus of fetus on ultrasound documented [facility] Diagnosis 24 weeks gestation of - Primary Monochorionic diamniotic twin gestation in second trimester [facility]* Diagnosis Monochorionic diamniotic twin gestation in second trimester- Primary Echogenic intracardiac focus of fetus on ultrasound 24 weeks gestation of documented in this [facility]* Diagnosis Second trimester state, incidental 25 weeks gestation of Diabetes mellitus screening Screening for diabetes mellitus Monochorionic diamniotic twin , antepartum documented in this encounter [facility]* Diagnosis Monochorionic 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- Primary [facility] in this [facility]* Diagnosis Monochorionic diamniotic twin gestation in second trimester- Primary documented in this encounter [facility] noteNo assessment information available [facility] Work Phone: Evaluation note* Diagnosis [...] of control unspecified documented in this encounter [facility]* Diagnosis Monochorionic 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 Gestational diabetes mellitus (GDM) in third trimester, gestational diabetes method of control unspecified [facility]* Diagnosis Third trimester (HHS-HCC) state, incidental 36 weeks gestation of (HHS-HCC) Monochorionic diamniotic twin , antepartum (HHS-HCC) documented [facility] encounter [facility]* Diagnosis Postoperative visit S/P section Other postprocedural status documented in this encounter [facility] of [facility] Narrative* Ayah Lynn M.D. - 05/31/2024 3:30 PM EDT [facility] Center Conference Members present: Ayah Lynn MD; MARTIN SuárezN, RNII, RNC-ARMANDO; HPI: Juan Diego Romero is a 23 y.o. who is presently 21w2d gestation (Estimated Date of Delivery: 10/09/24 by 7 week US) who was referred by Kvng Jordan MD for evaluation and management of Vivek twins with concern for TTTS and/or sFGR. Juan Diego Romero was referred to the [facility] on 05/28/[address] Kvng Jordan at [facility]. Significant findings include ultrasound completed on 05/27/24 [...] TESTING: NIPT (03/15/24) - Low Risk Female Foristell Carrier Screen (03/15/24): Negative GTT, 1h: Not [...] ACOG form Imaging: Echocardiogram on 05/31/2024 at [facility]: FETUS A SUMMARY: 1. Normal cardiac [...] rate and rhythm. Ultrasound on 05/31/2024 at [facility]: Impression ========= Monochorionic diamniotic twin gestation [...] No vasa previa. Overall Impression: -Juan Diego Romero is a 23 y.o. with Vivek twins [...] 34-37 weeks at present. Referral back to [facility] if concern for TTTS, TAPS, sFGR. We offer laser until 27 weeks gestation. Family decision: Agrees with above recommendations and will go forward I spent 60 minutes in the encounter. Ayah Lynn M.D. Maternal- Medicine Attending documented in this [facility] Hospital Discharge instructions No data available for this section [facility] filedocumented in this encounter [facility] filedocumented in this [facility] on filedocumented in this encounter [facility] on filedocumented in this encounter [facility]Not on filedocumented in this encounter [facility]* Attachments The following attachments cannot be sent through Care Everywhere. * Preeclampsia (Faroese) documented in this encounterPro[facility] SystemInstructionsNot on file documented in [facility] No data available for this section [facility] for referral (narrative)No reason for referral information availableK[facility] Work Phone: Advance Directives No Advanced Directives Records Found Advance Directive Response Recorded Date/ Time Advance Directives No June 29, 2020 9:26am Chief Complaint and Reason for Visit Chief Complaint middle back pain Chief Complaint Admit Date Unknown July 30, 2024 9:39p m Chief Complaint Admit Date Unknown July 30, 2024 9:39p m Unknown September 16, 2024 9:23 am Summary Purpose Family History No Family History Records FoundNo Family History Records FoundNo Family History Records FoundNo Family History Records FoundNo Family History Records FoundNo Family History Records FoundNo Family History Records Found Additional Source Comments Patient Care team informatio n (unrecognized section and content) Senior Benefits Specialist Relationship Specialty Start Date End Date Edith Ford MD [address] [place] [address] PCP - General Family Medicine 09/01/22 Senior Benefits Specialist Relationship Specialty Start Date End Date Edith Ford MD [address] [place] [address] PCP - General Family Medicine 09/01/22 Senior Benefits Specialist Relationship Specialty Start Date End Date Edith Ford MD [address] [place] [address] PCP - General Family Medicine 09/01/22 Senior Benefits Specialist Relationship Specialty Start Date End Date Edith Ford MD [address] [place], [facility] PCP - General Family Medicine 09/01/22 Senior Benefits Specialist Relationship Specialty Start Date End Date Dhruv Recinos D.O. [address] [place] [address] [place] [id number] PCP - General External Obstetrics & Gynecology 05/28/24 Senior Benefits Specialist Relationship Specialty Start Date End Date Edith Ford MD [address] [place] [address] PCP - General Family Medicine 09/01/22 Senior Benefits Specialist Relationship Specialty Start Date End Date Edith Ford MD [address] [place] [address] PCP - General Family Medicine 09/01/22 Senior Benefits Specialist Relationship Specialty Start Date End Date Edith Ford MD [address] [place] [address] PCP - General Family Medicine 09/01/22 Team Status: Inactive Member Role Status Dates Cici Guadalupe DO Attending Provider Active Start: July 30, 2024 End: July 30, 2024 Senior Benefits Specialist Relationship Specialty Start Date End Date Edith Ford MD [address] [place] [address] PCP - General Family Medicine 09/01/22 Senior Benefits Specialist Relationship Specialty Start Date End Date Edith Ford MD [address] [place] [address] PCP - General Family Medicine 09/01/22 Senior Benefits Specialist Relationship Specialty Start Date End Date Edith Ford MD [address] [place] [address] PCP - General Family Medicine 09/01/22 Senior Benefits Specialist Relationship Specialty Start Date End Date Edith Ford MD [address] [place] [address] PCP - General Family Medicine 09/01/22 Senior Benefits Specialist Relationship Specialty Start Date End Date Edith Ford MD [address] [place] [address] PCP - General Family Medicine 09/01/22 Team Status: Inactive Member Role Status Dates Dhruv Recinos DO Attending Provider Active Start : September 16, 2024 End: September 16, 2024 Senior Benefits Specialist Relationship Specialty Start Date End Date Edith Ford MD [address] [place] [address] PCP - General Family Medicine 09/01/22 Senior Benefits Specialist Relationship Specialty Start Date End Date Edith Ford MD [address] [place] [address] PCP - General Family Medicine 09/01/22 Senior Benefits Specialist Relationship Specialty Start Date End Date Edith Ford MD [address] [place] [address] PCP - General Family Medicine 09/01/22 INFORMATION SOURCE (unrecogn ized section and content) DATE CREATED AUTHOR 03/29/2022 [facility] DATE CREATED AUTHOR AUTHOR'S ORGANIZ ATION 05/13/2022 [facility] DATE CREATED AUTHOR AUTHOR'S ORGANIZ ATION 06/15/2024 [facility] DATE CREATED AUTHOR AUTHOR'S ORGANIZ ATION 06/16/2024 [facility] DATE CREATED AUTHOR AUTHOR'S ORGANIZ ATION 09/15/2024 [facility] DATE CREATED AUTHOR AUTHOR'S ORGANIZ ATION 09/21/2024 [facility] DATE CREATED AUTHOR AUTHOR'S ORGANIZ ATION 09/24/2024 [facility] Reason for Visit (unrecogniz ed section and content) Reason Comments Amenorrhea Reason Comments Routine Visit Reason Comments growth discrepancy Reason Comments Monochorionic Twins Reason Comments Navarro-Di Twins Baby A EIF Reason Comments Monochorionic Diamniotic Twin Reason Comments Gestational Diabetes Specialty Diagnoses / Procedures Referred By Contac t Referred To Contact Maternal and Medicine Diagnoses Monochorionic 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 Gestational diabetes mellitus (GDM) in third trimester, gestational diabetes method of control unspecified Dhruv Recinos R, DO [address] [place] [address] [place] [address] Phone: tel: fax: Maternal- Medicine at [facility] [address] [place] [address] Phone: tel: fax: Referral ID Status Reason Start Date Expiration Date Visits Requested Visits Authorized [id number] Pending Review Specialty Services Required 08/29/2024 08/29/2025 1 1 Reason Comments Post-op Visit Pt present today for a 1 week c/s post op visit. Goals (unrecognized section and content) Goals may [...] BE BASED ON THE PRIMARY CLINICAL RECORDS. Apprion [facility]. provides no warranty or guarantee of the accuracy or completeness of information in this document.
--- NOTE | 2024-09-25 10:31 | PC.NURSE ---
Rosemary, and 9 day old twins Hannah and Rosita arrive for follow up appointment. Grandma with family. Rosemary states is tired, but doing well. No concerns for self during recovery. States feels well, incision without problems milk is in. is pumping 7 oz every 3-4 hours. Babies are both taking 50 ml every 3-4 hours via bottle, retains feeds. Rosemary has good family support, she lives with her mom who helps with babies as needed. Rosemary with VSS and assessment WNL. Incision open to air, clean and dry, steri strips intact, no redness or drainage noted. States she keeps t dry, has peripad tucked into skin fold and changes frequently. Twin A, Hannah, alert, pink, and appears well. VSS and assessment WNL. has 8-10 wet diapers and mostly has yellow stools with each feed. wakes self for feeds. Feeds well every 3-4 hours, mother does not let baby go longer than 4 hours between feeds. Weight is 7.7% down from weight. Will re-check weight in Dr Madrigal's office 09/27/2024. Discussed possible fortifying her breastmilk to higher calorie to assist in weight gain. Dr Madrigal t cherelleiscuss and assist pt in decision. Rosemary denies concerns with infant , states she is really pretty easy. Twin B, Rosita, is awake and alert. Noted to have jaundiced color with pink undertones. VSS and assessment WNL. Rosita eats every 3-4 hours via bottle with mom's pumped milk. She takes 50ml easily, without regurg. She has 8-10 wet diapers and frequent stools with each feed. Color jaundiced, TcB is 12.0. Weight today is 6.3% down from . Mother denies concerns for Rosita and her care. Family leaves ambulatory without concerns. Aware to call for questions and MOMS group.
[2024-09-25 10:32] VITALS: BP 113/83; PULSE 75; TEMP 36.8; O2SAT 97
== END 2024-09-25 10:36 | disposition home or self-care (01) ==
PROVIDERS: PCP Family Medicine; Visit Provider Obstetrics & Gynecology
DX: Z39.1 Encounter for care and examination of lactating mother (principal)